=== PATIENT | female | born 1960 | race Caucasian/White ===

== ENCOUNTER 2016-04-14 13:22 | Emergency (ER) | payer MEDICAID ==
--- NOTE | 2016-04-14 14:13 | ER Document Report ---
ED General - General Chief Complaint: Chest Pain Stated Complaint: CHEST PAIN Time seen by provider: 14:09 Mode of Arrival: Medic Information source: Patient Notes: 55-year-old female reports abrupt onset of left-sided chest heaviness rating the left shoulder associated with shortness of breath which lasted she thinks about half an hour and was relieved in route with one full dose aspirin and 3 sublingual nitroglycerin. Patient reports history 2 cardiac stents placed she thinks about 2 years ago and reports she is had pain like this intermittently ever since then. She reports it usually will go away with sublingual nitroglycerin but she has had to take as many as 3 in the past to make it go away. 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 She doesn't believe she is had any cardiac workup since her stent placement. She denies diaphoresis, nausea, vomiting, swelling to extremities, numbness weakness to extremities, hematemesis, melena, or hematuria. She reports her chest discomfort has been intermittent occurring every month or so and is not occurring more frequent there lasting longer. She denies any dyspnea on exertion or exercise intolerance worsen her baseline. Physical Exam: General: Alert, appears well. HEENT: Normocephalic. Atraumatic. PERRLA. Extraocular movements intact. Oropharynx clear. Neck: Supple. Non-tender. Respiratory: No respiratory distress. Clear and equal breath sounds bilaterally. Not tender to palpation Cardiovascular: Regular rate and rhythm. Abdominal: Normal Inspection. Soft, non-tender. No distension. Normal Bowel Sounds. Back: Non-tender. No deformity or step off. Extremities: Moves all four extremities. Upper extremities: Normal inspection. Non-tender. Normal color. Normal ROM. Normal temperature. Lower extremities: Normal inspection. Non-tender. No edema. Normal color. Normal ROM. Normal temperature. Neurological: Patient slow to answer questions but speech is clear mentation is normal Psychological: Normal affect. Normal Mood. Skin: Warm. Dry. Normal color. TRAVEL OUTSIDE OF THE [place] IN LAST 30 DAYS: No - Related Data Allergies/Adverse Reactions: haloperidol [From Haldol] Allergy (Verified 05/29/14 19:04) haloperidol lactate [From Haldol] Allergy (Verified 05/29/14 19:04) Past Medical History - Social History Smoking Status: Current Every Day Smoker Family History: CAD - Extensive heart disease in mother and brother with brother dying from complications of cardiac stent placement - Past Medical History Cardiac Medical History: Reports: Hx Coronary Artery Disease, Hx Heart Attack - x2, Hx Hypercholesterolemia, Hx Hypertension Pulmonary Medical History: Reports: Hx Bronchitis, Hx COPD Endocrine Medical History: Reports: Hx Diabetes Mellitus Type 2 Renal/ Medical History: Reports: Hx Kidney Stones GI Medical History: Reports: Hx Gastroesophageal Reflux Disease Psychiatric Medical History: Reports: Hx Bipolar Disorder, Hx Depression, Hx Schizophrenia Past Surgical History: Reports: Hx Cardiac Surgery - stents, Hx Cholecystectomy , Hx Coronary Stent - x2 - Immunizations Hx Diphtheria, Pertussis, Tetanus Vaccination: Yes Review of Systems - Review of Systems Constitutional: denies: Chills, Fever EENT: denies: Ear pain, Throat pain Cardiovascular: See HPI Respiratory: denies: Cough Gastrointestinal: denies: Abdomen distended, Diarrhea Genitourinary: denies: Burning, Dysuria Female Genitourinary: denies: Musculoskeletal: denies: Back pain Skin: denies: Rash Hematologic/Lymphatic: denies: Swollen glands Neurological/Psychological: denies: Weakness, Numbness Course - Re-evaluation Re-evalutation: 04/14/16 16:01 Patient has a presentation most consistent with stable angina. She had relief of her discomfort with 3 several nitroglycerin is consistent with what happened with her by her report on multiple occasions in the outpatient setting. She was also noted by EMS to have us blood sugar 495. Prior to blood being obtained for laboratory work the patient chose to sign out AGAINST MEDICAL ADVICE. She is mentating clearly and competent to choose to refuse further care. She understands that her workup including an evaluation of uncontrolled diabetes as well as coronary artery disease and refusal to allow further workup may have consequences including or permanent disability. 04/14/16 16:02 - Diagnostic Test Radiology reviewed: Image reviewed, Reports reviewed - EKG Interpretation by Me Additional EKG results interpreted by me: 04/14/16 16:00 EKG reviewed by myself shows sinus rhythm at 77 with no acute changes and no significant change compared with 05/29/2014 Discharge - Discharge Clinical Impression: Hyperglycemia Chest pain Qualifiers: Chest pain type: unspecified Qualified Code(s): R07.9 - Chest pain, unspecified Condition: Stable Disposition: AGAINST MEDICAL ADVICE Referrals: TREVON SKAGGS PA-C [NO LOCAL MD] - Follow up tomorrow
[2016-04-14 21:04] VITALS: BP 148/80
--- NOTE | 2016-04-15 | EKG REPORT ---
SEVERITY:- ABNORMAL ECG - SINUS RHYTHM LVH BY VOLTAGE INFERIOR INFARCT, AGE INDETERMINATE CONSIDER ANTERIOR INFARCT : Confirmed by: Ermias Smith 14-Apr-2016 23:59:48
== END 2016-04-14 15:51 | disposition left against medical advice (07) ==
LOC: ER 13:22
DX: R07.9 Chest pain, unspecified (principal); E11.65 Type 2 diabetes mellitus with hyperglycemia; I25.10 Atherosclerotic heart disease of native coronary artery without angina pectoris; J44.9 Chronic obstructive pulmonary disease, unspecified; R06.02 Shortness of breath; I25.2 Old myocardial infarction; I10 Essential (primary) hypertension; F17.200 Nicotine dependence, unspecified, uncomplicated; Z98.61 Coronary angioplasty status; Z88.8 Allergy status to other drugs, medicaments and biological substances; Z82.49 Family history of ischemic heart disease and other diseases of the circulatory system
CPT/HCPCS: 71010; 93005; 93010; 99285

== ENCOUNTER 2016-07-23 19:36 | Emergency (ER) | payer MEDICAID ==
[2016-07-23 21:37] LABS: ABSOLUTE BASOPHILS # (AUTO) 0.1 10^3/uL (0.0-0.2); ABSOLUTE EOSINOPHILS # (AUTO) 0.2 10^3/uL (0.0-0.6); ABSOLUTE LYMPHOCYTES (AUTO) 4.1 10^3/uL (0.5-4.7); ABSOLUTE MONOCYTES (AUTO) 0.7 10^3/uL (0.1-1.4); ABSOLUTE NEUT (AUTO) 5.9 10^3/uL (1.7-8.2); BASOPHILS % (AUTO) 0.7 % (0-2); EOSINOPHILS % (AUTO) 1.9 % (0-6); HEMATOCRIT 46.2 % (36.0-47.0); HEMOGLOBIN 15.7 g/dL (12.0-15.5); HGB HCT DIFFERENCE 0.9; LYMPHOCYTES % (AUTO) 37.3 % (13-45); MEAN CORPUSCULAR HEMOGLOBIN 32.3 pg (27.0-33.4); MEAN CORPUSCULAR VOLUME 95 fl (80-97); MONOCYTES % (AUTO) 6.3 % (3-13); RED BLOOD COUNT 4.87 10^6/uL (3.72-5.28); RED CELL DISTRIBUTION WIDTH 14.1 % (11.5-14.0); SEGMENTED NEUTROPHILS % (AUTO) 53.8 % (42-78); WHITE BLOOD COUNT 11.1 10^3/uL (4.0-10.5)
[2016-07-23 21:43] LABS: ALANINE AMINOTRANSFERASE 63 U/L (9-52); ALBUMIN 4.4 g/dL (3.5-5.0); ALKALINE PHOSPHATASE 125 U/L (38-126); ANION GAP 17 (5-19); ASPARTATE AMINO TRANSFERASE 66 U/L (14-36); BILIRUBIN,DIRECT 0.4 mg/dL (0.0-0.4); BILIRUBIN,TOTAL 0.8 mg/dL (0.2-1.3); BLOOD UREA NITROGEN 10 mg/dL (7-20); CALCIUM 10.3 mg/dL (8.4-10.2); CARBON DIOXIDE 24 mmol/L (22-30); CHLORIDE 101 mmol/L (98-107); CREATINE KINASE 73 U/L (30-135); GLUCOSE 383 mg/dL (75-110); POTASSIUM 3.9 mmol/L (3.6-5.0)
[2016-07-23 21:56] LABS: CREATINE KINASE MB 2.34 ng/mL (<4.55); TROPONIN I < 0.012 ng/mL
[2016-07-23] MEDS ORDERED: LIDOCAINE 1% INJ-PF (10 MG/ML) 30 ML SDV INJ ONE (22:05)
--- NOTE | 2016-07-23 22:07 | RADIOLOGY REPORT (SQ) ---
EXAM DESCRIPTION: CHEST SINGLE VIEW COMPLETED DATE/TIME: 07/23/2016 9:28 pm REASON FOR STUDY: chest pain COMPARISON: 05/29/2014 EXAM PARAMETERS: NUMBER OF VIEWS: One view. TECHNIQUE: Single frontal radiographic view of the chest acquired. RADIATION DOSE: NA LIMITATIONS: None. FINDINGS: LUNGS AND PLEURA: No acute opacities, masses or pneumothorax. No pleural effusion. MEDIASTINUM AND HILAR STRUCTURES: Stable. HEART AND VASCULAR STRUCTURES: Heart normal in size. Normal vasculature. BONES: No acute findings. HARDWARE: None in the chest. OTHER: No other significant finding. IMPRESSION: NO ACUTE RADIOGRAPHIC FINDING IN THE CHEST. TECHNICAL DOCUMENTATION: JOB ID: [id number]
--- NOTE | 2016-07-23 22:30 | ER Document Report ---
ED General - General Mode of Arrival: Medic Information source: Patient TRAVEL OUTSIDE OF THE [place] IN LAST 30 DAYS: No - HPI Patient complains to provider of: Abscess Onset: Other - >1 year ago, worse over past 5 days Onset/Duration: Gradual Associated symptoms: Chest pain, Shortness of breath <MARIVEL MORATAYA - Last Filed: 07/23/16 22:25> <BHAVYA GRIMM - Last Filed: 07/24/16 00:44> - General Chief Complaint: Abscess Stated Complaint: POSSIBLE CYST ON SHOULDER Time Seen by Provider: 07/23/16 21:53 Notes: Patient is a 56-year-old female, with medical history including 2 ND's, diabetes , and COPD, presenting to the emergency department with chief complaint of abscess on her right shoulder. Patient states the area was previously non- tender and only the size of a pea for more than a year, but has progressively worsened over the past 5 days. Patient also complains of right sided achy chest pain that has been intermittent since her second heart attack, but it has become more frequent over the past few weeks (approximately 2-3x per week). Patient also states that she notices that she becomes short of breath when she smokes too much. 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 (MARIVEL MORATAYA) - Related Data Allergies/Adverse Reactions: haloperidol [From Haldol] Allergy (Verified 05/29/14 19:04) haloperidol lactate [From Haldol] Allergy (Verified 05/29/14 19:04) Past Medical History - General Information source: Patient, [facility] Records - Social History Smoking Status: Current Every Day Smoker Chew tobacco use (# tins/day): No Frequency of alcohol use: None Drug Abuse: None Family History: Reviewed & Not Pertinent, CAD - Extensive heart disease in mother and brother with brother dying from complications of cardiac stent placement Patient has suicidal ideation: No Patient has homicidal ideation: No - Past Medical History Cardiac Medical History: Reports: Hx Coronary Artery Disease, Hx Heart Attack - x2, Hx Hypercholesterolemia, Hx Hypertension Pulmonary Medical History: Reports: Hx Bronchitis, Hx COPD Endocrine Medical History: Reports: Hx Diabetes Mellitus Type 2 Renal/ Medical History: Reports: Hx Kidney Stones. Denies: Hx Peritoneal Dialysis GI Medical History: Reports: Hx Gastroesophageal Reflux Disease Psychiatric Medical History: Reports: Hx Bipolar Disorder, Hx Depression, Hx Schizophrenia Past Surgical History: Reports: Hx Cardiac Surgery - stents, Hx Cholecystectomy , Hx Coronary Stent - x2 - Immunizations Hx Diphtheria, Pertussis, Tetanus Vaccination: Yes <MARIVEL MORATAYA - Last Filed: 07/23/16 22:25> Review of Systems - Review of Systems Constitutional: No symptoms reported EENT: No symptoms reported Cardiovascular: See HPI, Chest pain - achy Respiratory: See HPI, Short of breath Gastrointestinal: No symptoms reported Genitourinary: No symptoms reported Female Genitourinary: No symptoms reported Musculoskeletal: No symptoms reported Skin: See HPI, Other - Right shoulder abscess Hematologic/Lymphatic: No symptoms reported Neurological/Psychological: No symptoms reported -: Yes All other systems reviewed and negative <MARIVEL MORATAYA - Last Filed: 07/23/16 22:25> Physical Exam <MARIVEL MORATAYA - Last Filed: 07/23/16 22:25> <BHAVYA GRIMM - Last Filed: 07/24/16 00:44> - Vital signs Vitals: Temp Pulse Resp BP Pulse Ox 97.8 F 84 17 151/82 H 97 07/23/16 19:46 07/23/16 19:46 07/23/16 19:46 07/23/16 19:46 07/23/16 19:46 - Notes Notes: GENERAL: Alert, interacts well. No acute distress. HEAD: Normocephalic, atraumatic. EYES: Pupils equal, round, and reactive to light. Extraocular movements intact. ENT: Oral mucosa moist, tongue midline. NECK: Full range of motion. Supple. Trachea midline. LUNGS: Anterior chest pain reproducible on palpation near mid clavicular line and ribs 4 & 5. clear to auscultation bilaterally, no wheezes, rales, or rhonchi. No respiratory distress. HEART: Regular rate and rhythm. No murmurs, gallops, or rubs. ABDOMEN: Soft, non-tender. Non-distended. Bowel sounds present in all 4 quadrants. EXTREMITIES: Moves all 4 extremities spontaneously. No edema. No cyanosis. NEUROLOGICAL: Alert and oriented x3. Normal speech. [cranial nerves II through XII grossly intact]. Biceps and patellar DTRs 2+ bilaterally. PSYCH: Normal affect, normal mood. SKIN: Warm, dry, normal turgor. Firm, warm, tender 2 cm area just posterior to the right clavicle. (MARIVEL MORATAYA) Course - Laboratory Result Diagrams: 07/23/16 21:19 07/23/16 21:19 <MARIVEL MORATAYA - Last Filed: 07/23/16 22:25> - Laboratory Result Diagrams: 07/23/16 21:19 07/23/16 21:19 <BHAVYA GRIMM - Last Filed: 07/24/16 00:44> - Re-evaluation Re-evalutation: 07/24/16 00:05 CBC shows slight leukocytosis, CMP shows hyperglycemia and slightly elevated LFTs. Initial set of cardiac enzymes negative, chest x-ray shows no acute process. 07/24/16 00:12 I&D was performed, no surrounding erythema. Started on Bactrim to prevent recurrence. Discussed with patient that she is choosing to leave before her second set of cardiac enzymes returns. Her pain is quite reproducible on examination by history of several heart attacks in the past she is high risk for cardiac etiology however the history of this particular episode of pain being reproducible on palpation and quite localized to one area makes her much lower risk. Patient has an initial set of negative cardiac enzymes, allowed us to order a second set and draw but does not want to stay for the results. Patient will be called with the results of the troponin should they return positive. She is aware that she is at risk for having a heart attack and we could be missing it if she leaves before the results are returned. Aware that this may cause the delay in her care. 07/24/16 00:44 Repeat troponin also negative. (BHAVYA GRIMM) - Vital Signs Vital signs: Temp Pulse Resp BP Pulse Ox 97.8 F 76 18 152/95 H 99 07/23/16 19:46 07/24/16 00:37 07/24/16 00:37 07/24/16 00:37 07/24/16 00:37 - Laboratory Laboratory results interpreted by me: 07/23/16 07/23/16 21:19 21:19 WBC 11.1 H Hgb 15.7 H RDW 14.1 H Glucose 383 H Calcium 10.3 H AST 66 H ALT 63 H - EKG Interpretation by Me Additional EKG results interpreted by me: 07/24/16 00:12 EKG shows sinus rhythm at a rate of 81, there is an old scar from an inferior infarct, no current evidence of infarction, no ST segment elevation or depression, no T-wave inversions, there is some T-wave flattening noted in V2 and V3, there is left axis deviation per my interpretation. (BHAVYA GRIMM) Discharge <MARIVEL MORATAYA - Last Filed: 07/23/16 22:25> <BHAVYA GRIMM - Last Filed: 07/24/16 00:44> - Discharge Clinical Impression: Infected sebaceous cyst, Chest pain with moderate risk of acute coronary syndrome Condition: Stable Disposition: HOME, SELF-CARE Instructions: Post Incision and Drainage, Trimethoprim-Sulfa ([facility]) Additional Instructions: You are choosing to leave before your final blood test for a heart attack is drawn. I will call you if the heart attack enzymes comes back elevated. Please return should your chest pain worsen, should you develop any shortness of breath or you develop any new or concerning symptoms. For the abscess on your right shoulder please use warm compresses and Epsom salts soaks. Please rinse it in the shower once a day and please return either here or to primary care physician should it stop draining and get bigger. Prescriptions: Sulfamethoxazole/Trimethoprim [Bactrim Ds Tablet] 1 each PO BID #14 tablet Referrals: TREVON SKAGGS PA-C [Primary Care Provider] - Follow up in 3-5 days Scribe Attestation: 07/24/16 00:44 I personally performed the services described in the documentation, reviewed and edited the documentation which was dictated to the scribe in my presence, and it accurately records my words and actions. (BHAVYA GRIMM) Scribe Documentation - Scribe Written by Angella:: Angella Zaragoza, 07/23/2016 2225 acting as scribe for :: Bertha <MARIVEL MORATAYA - Last Filed: 07/23/16 22:25>
[2016-07-23] MEDS ORDERED: ASPIRIN 81 MG TABLET, CHEWABLE PO ONE (22:39)
[2016-07-24 00:38] VITALS: BP 152/95
--- NOTE | 2016-07-24 08:23 | EKG REPORT ---
SEVERITY:- ABNORMAL ECG - SINUS RHYTHM INFERIOR INFARCT, AGE INDETERMINATE CONSIDER ANTERIOR INFARCT : Confirmed by: Agustin Crawford MD 24-Jul-2016 08:22:44
== END 2016-07-24 00:15 | disposition home or self-care (01) ==
LOC: ER 19:36
PROC: 0H9BXZZ Drainage of Right Upper Arm Skin, External Approach (ICD-10-PCS; principal; 2016-07-23)
DX: L72.3 Sebaceous cyst (principal); D72.829 Elevated white blood cell count, unspecified; R07.9 Chest pain, unspecified; R06.02 Shortness of breath; R79.89 Other specified abnormal findings of blood chemistry; I25.10 Atherosclerotic heart disease of native coronary artery without angina pectoris; I25.2 Old myocardial infarction; I10 Essential (primary) hypertension; E11.65 Type 2 diabetes mellitus with hyperglycemia; J44.9 Chronic obstructive pulmonary disease, unspecified; F17.200 Nicotine dependence, unspecified, uncomplicated; Z88.8 Allergy status to other drugs, medicaments and biological substances; Z82.49 Family history of ischemic heart disease and other diseases of the circulatory system; Z98.61 Coronary angioplasty status
CPT/HCPCS: 93005; 99284; 36415; 82553; 82550; 85025; 80053; 84484; 71010; 93010; 10060; J3490

== ENCOUNTER 2016-08-20 11:07 | Emergency (ER) | payer MEDICAID ==
[2016-08-20] MEDS ORDERED: ASPIRIN 81 MG TABLET, CHEWABLE PO ONE (11:10)
--- NOTE | 2016-08-20 11:41 | ER Document Report ---
ED Cardiac - General Chief Complaint: Chest Pain Stated Complaint: CHEST PAIN Time Seen by Provider: 08/20/16 11:27 Mode of Arrival: Medic Information source: Patient, Emergency Med Personnel TRAVEL OUTSIDE OF THE [place] IN LAST 30 DAYS: No - HPI Patient complains to provider of: Chest pain Use of: denies: Alcohol, Amphetamines, Bath salts, Cocaine Was the onset of pain: Sudden Is the pain a: New problem Chest pain location: Substernal Quality of pain: Heaviness, Tightness Chest pain radiation location: None Severity now: Mild Severity at worst: Moderate Chest pain precipitating factors: At Rest Cardiac risk factors: Hypertension, Smoker, Hx ND Positive cardiac history: Yes Associated symptoms: Diaphoresis, Nausea/vomiting, Shortness of breath Exacerbated by: Denies Relieved by: NTG - PARTIAL Similar symptoms previously: Yes - W/ ND Recently seen / treated by doctor: No - Related Data Allergies/Adverse Reactions: haloperidol [From Haldol] Allergy (Verified 05/29/14 19:04) haloperidol lactate [From Haldol] Allergy (Verified 05/29/14 19:04) Past Medical History - General Information source: Patient - Social History Smoking Status: Former Smoker Cigarette use (# per day): No Chew tobacco use (# tins/day): No Frequency of alcohol use: None Drug Abuse: None Lives with: Family Family History: Reviewed & Not Pertinent, CAD - Extensive heart disease in mother and brother with brother dying from complications of cardiac stent placement - Past Medical History Cardiac Medical History: Reports: Hx Coronary Artery Disease, Hx Heart Attack - x2, Hx Hypercholesterolemia, Hx Hypertension Pulmonary Medical History: Reports: Hx Bronchitis, Hx COPD Neurological Medical History: Reports: None Endocrine Medical History: Reports: Hx Diabetes Mellitus Type 2 Renal/ Medical History: Reports: Hx Kidney Stones. Denies: Hx Peritoneal Dialysis GI Medical History: Reports: Hx Gastroesophageal Reflux Disease Psychiatric Medical History: Reports: Hx Bipolar Disorder, Hx Depression, Hx Schizophrenia Past Surgical History: Reports: Hx Cardiac Surgery - stents, Hx Cholecystectomy , Hx Coronary Stent - x2 - Immunizations Hx Diphtheria, Pertussis, Tetanus Vaccination: Yes Review of Systems - Review of Systems Constitutional: See HPI EENT: No symptoms reported Cardiovascular: See HPI Respiratory: See HPI Gastrointestinal: See HPI Genitourinary: No symptoms reported Musculoskeletal: No symptoms reported Skin: No symptoms reported Neurological/Psychological: No symptoms reported Physical Exam - Vital signs Vitals: Resp Pulse Ox 25 H 97 08/20/16 11:18 08/20/16 11:18 Interpretation: Hypertensive. No: Tachycardic, Hypoxic, Tachypneic, Febrile - General General appearance: Appears well, Alert In distress: None - HEENT Head: Normocephalic Eyes: Normal Conjunctiva: Normal Ears: Normal Nasal: Normal Mouth/Lips: Normal Mucous membranes: Normal Pharynx: Normal - Respiratory Respiratory status: No respiratory distress Breath sounds: Normal - Cardiovascular Rhythm: Regular Heart sounds: Normal auscultation Murmur: No - Abdominal Inspection: Normal Distension: No distension Bowel sounds: Hypoactive - Extremities General upper extremity: Normal inspection General lower extremity: Normal inspection - Neurological Neuro grossly intact: Yes Cognition: Normal Orientation: AAOx4 - Psychological Associated symptoms: Normal affect, Normal mood - Skin Skin Temperature: Warm Skin Moisture: Moist Skin Color: Normal Skin Turgor: Elastic Course - Re-evaluation Re-evalutation: 08/20/16 12:54 PATIENT STATES PAIN RESOLVED. RESULTS OF LAB DISCUSSED W/ PATIENT AND FAMILY. NEED FOR TRANSFER TO MEDICAL CENTER DISCUSSED. WILL SEEK TRANSFER TO [facility]. 08/20/16 13:00 08/20/16 14:08 PATIENT REMAINS PAIN-FREE. DISCUSSED LIKELIHOOD THAT TRANSFER TO [facility] WILL BE PROLONGED, PATIENT AGREES TO TRANSFER TO COUNTS INCLUDE 234 BEDS AT THE [facility] IF THAT WOULD BE QUICKER. 08/20/16 15:12 WHILE AWAITING TRANSPORTATION FOR TRANSFER TO COUNTS INCLUDE 234 BEDS AT THE [facility], PATIENT DECIDED SHE DID NOT WANT TO STAY IN THE HOSPITAL AND PULLED HER IV OUT. AFTER LONG CONVERSATION AND PERSUASION BY Little SHE FINALLY AGREED TO COMPLY WITH RECOMMENDED CARE. 08/20/16 17:22 PATIENT ADAMANTLY DEMANDS TO LEAVE. WAS TOLD BY Little THAT SHE HAS A SERIOUS PROBLEM AND THAT "YOU MIGHT WITHOUT PROPER TREATMENT." SHE VERBALIZES UNDERSTANDING BUT REMAINS STEADFAST IN HER DECISION. SHE IS ALERT, ORIENTED, AND COHERENT. SHE IS ENCOURAGED TO RETURN IF SHE CHANGES HER MIND. - Vital Signs Vital signs: Temp Pulse Resp BP Pulse Ox 97.5 F 18 123/81 95 08/20/16 11:22 08/20/16 15:46 08/20/16 15:46 08/20/16 15:46 - Laboratory Result Diagrams: 08/20/16 11:46 08/20/16 11:46 Laboratory results interpreted by me: 08/20/16 08/20/16 08/20/16 11:46 11:46 11:46 WBC 12.9 H Hgb 16.1 H Hct 48.7 H RDW 14.2 H Absolute Neutrophils 9.3 H Carbon Dioxide 19 L BUN 6 L Glucose 461 H* POC Glucose AST 51 H ALT 54 H Alkaline Phosphatase 145 H Creatine Kinase 316 H CK-MB (CK-2) 19.60 H Total Protein 8.5 H 08/20/16 08/20/16 14:23 16:12 WBC Hgb Hct RDW Absolute Neutrophils Carbon Dioxide BUN Glucose POC Glucose 381 H 385 H AST ALT Alkaline Phosphatase Creatine Kinase CK-MB (CK-2) Total Protein - Diagnostic Test Radiology reviewed: Image reviewed, Reports reviewed - EKG Interpretation by Me EKG shows normal: [place], Intervals. abnormal: Sinus rhythm - WANDERING ATRIAL PACEMAKER, QRS Complexes - INF. Q WAVES, OLD, ST-T Waves - FLATTENED T WAVES LATERALLY Rate: Normal When compared to previous EKG there are: Changes noted - Consults DR. MEADE Time consulted: 13:40 Reason for consultation: 08/20/16 14:10 ACCEPTS PATIENT FOR TRANSFER TO [facility], BED ASSIGNMENT WILL BE DELAYED AT LEAST SEVERAL HOURS. DR. ANGELA LEARY Time consulted: 14:50 Reason for consultation: 08/20/16 15:15 PATIENT ACCEPTED FOR TRANSFER TO COUNTS INCLUDE 234 BEDS AT THE [facility], BED ASSIGNMENT PENDING. Critical Care Note - Critical Care Note Total time excluding time spent on procedures (mins): 60 Comments: LIFE-THREATENING CARDIAC ISCHEMIA REQUIRING AGGRESSIVE INTERVENTIONS, INCLUDING IV MEDICATIONS, FOR STABILIZATION. Discharge - Discharge Clinical Impression: Non-STEMI (non-ST elevated myocardial infarction), Diabetes mellitus type 2 in nonobese, Left against medical advice Hyperglycemia due to type 2 diabetes mellitus Qualifiers: Diabetes mellitus manager long term care insulin use: unspecified manager long term care insulin use status Qualified Code(s): E11.65 - Type 2 diabetes mellitus with hyperglycemia HTN (hypertension) Qualifiers: Hypertension type: essential hypertension Qualified Code(s): I10 - Essential ( primary) hypertension Condition: Fair Disposition: AGAINST MEDICAL ADVICE Additional Instructions: YOU HAVE A SERIOUS MEDICAL PROBLEM, ONE THAT COULD BE FATAL IF NOT PROPERLY TREATED. APPROPRIATE CARE AND TRANSFER TO A MEDICAL CENTER HAS BEEN ARRANGED FOR YOU, BUT YOU HAVE ELECTED TO LEAVE AGAINST MEDICAL ADVICE. CONTINUE YOUR USUAL MEDICATIONS. FOLLOW UP WITH YOUR PRIMARY CARE PROVIDER SOON POSSIBLE. PLEASE RETURN TO E.R. PROMPTLY IF YOU CHANGE YOUR MIND, WE ARE WILLING TO SEE YOU AND DO OUR BEST TO CARE FOR YOU AT ANY TIME..
[2016-08-20] MEDS ORDERED: ONDANSETRON HCL INJ/PF 4 MG/2 ML SDV ONE (11:45)
[2016-08-20] MEDS ORDERED: ONDANSETRON HCL INJ/PF 4 MG/2 ML SDV IV ONE (11:46)
[2016-08-20] MEDS ORDERED: NITROGLYCERIN/D5W 250 ML IV PRN (11:46)
[2016-08-20] MEDS ORDERED: MORPHINE SULFATE 10 MG/ML INJ IM ONE (11:46)
[2016-08-20] MEDS ORDERED: MORPHINE SULFATE 10 MG/ML INJ ONE (11:46)
[2016-08-20 11:57] LABS: ABSOLUTE BASOPHILS # (AUTO) 0.1 10^3/uL (0.0-0.2); ABSOLUTE EOSINOPHILS # (AUTO) 0.1 10^3/uL (0.0-0.6); ABSOLUTE LYMPHOCYTES (AUTO) 2.9 10^3/uL (0.5-4.7); ABSOLUTE MONOCYTES (AUTO) 0.6 10^3/uL (0.1-1.4); ABSOLUTE NEUT (AUTO) 9.3 10^3/uL (1.7-8.2); BASOPHILS % (AUTO) 0.8 % (0-2); EOSINOPHILS % (AUTO) 0.5 % (0-6); HEMATOCRIT 48.7 % (36.0-47.0); HEMOGLOBIN 16.1 g/dL (12.0-15.5); HGB HCT DIFFERENCE -0.4; LYMPHOCYTES % (AUTO) 22.4 % (13-45); MEAN CORPUSCULAR HEMOGLOBIN 31.6 pg (27.0-33.4); MEAN CORPUSCULAR HGB CONC 33.1 g/dL (32.0-36.0); MEAN CORPUSCULAR VOLUME 95 fl (80-97); MONOCYTES % (AUTO) 4.4 % (3-13); RED BLOOD COUNT 5.11 10^6/uL (3.72-5.28); RED CELL DISTRIBUTION WIDTH 14.2 % (11.5-14.0); SEGMENTED NEUTROPHILS % (AUTO) 71.9 % (42-78); WHITE BLOOD COUNT 12.9 10^3/uL (4.0-10.5)
[2016-08-20] MEDS ORDERED: DIPHENHYDRAMINE HCL 50 MG/ML VIAL IV ONE (12:14)
[2016-08-20] MEDS ORDERED: PROCHLORPERAZINE EDISYLATE INJ 10 MG/2 ML VIAL IV ONE (12:15)
[2016-08-20] MEDS ORDERED: MORPHINE SULFATE 10 MG/ML INJ IV ONE (12:16)
[2016-08-20 12:22] LABS: ALANINE AMINOTRANSFERASE 54 U/L (9-52); ALBUMIN 4.4 g/dL (3.5-5.0); ALKALINE PHOSPHATASE 145 U/L (38-126); ANION GAP 19 (5-19); ASPARTATE AMINO TRANSFERASE 51 U/L (14-36); BILIRUBIN,DIRECT 0.4 mg/dL (0.0-0.4); BILIRUBIN,TOTAL 1.2 mg/dL (0.2-1.3); BLOOD UREA NITROGEN 6 mg/dL (7-20); CALCIUM 10.1 mg/dL (8.4-10.2); CARBON DIOXIDE 19 mmol/L (22-30); CHLORIDE 103 mmol/L (98-107); CREATINE KINASE 316 U/L (30-135); CREATININE RESULT 0.73 mg/dL (0.52-1.25); POTASSIUM 3.8 mmol/L (3.6-5.0); SODIUM 140.6 mmol/L (137-145); TOTAL PROTEIN 8.5 g/dL (6.3-8.2)
--- NOTE | 2016-08-20 12:25 | RADIOLOGY REPORT (SQ) ---
EXAM DESCRIPTION: CHEST SINGLE VIEW COMPLETED DATE/TIME: 08/20/2016 12:11 pm REASON FOR STUDY: chest pain COMPARISON: 07/23/2016 EXAM PARAMETERS: NUMBER OF VIEWS: One view. TECHNIQUE: Single frontal radiographic view of the chest acquired. RADIATION DOSE: NA LIMITATIONS: None. FINDINGS: LUNGS AND PLEURA: No opacities, masses or pneumothorax. No pleural effusion. MEDIASTINUM AND HILAR STRUCTURES: No masses. Contour normal. HEART AND VASCULAR STRUCTURES: Heart normal in size. Normal vasculature. BONES: No acute findings. HARDWARE: None in the chest. OTHER: No other significant finding. IMPRESSION: NO ACUTE RADIOGRAPHIC FINDING IN THE CHEST. TECHNICAL DOCUMENTATION: JOB ID: [id number]
[2016-08-20 12:36] LABS: GLUCOSE 461 mg/dL (75-110)
[2016-08-20 12:40] LABS: CREATINE KINASE MB 19.6 ng/mL (<4.55)
[2016-08-20 12:45] LABS: TROPONIN I 1.21 ng/mL
[2016-08-20] MEDS ORDERED: INSULIN REG, HUMAN 100 UNIT/ML 3 ML VIAL (PYX) IV ONE (12:51)
[2016-08-20] MEDS ORDERED: NORMAL SALINE 100 ML with INSULIN REGULAR, HUMAN 100 UNIT IV PRN ×2 (13:18)
[2016-08-20] MEDS ORDERED: ENOXAPARIN SODIUM INJ 100 MG/1 ML DISP.SYRIN SUBCUT ONE (13:56)
[2016-08-20] MEDS ORDERED: NITROGLYCERIN 2% OINTMENT 1 GM PACKET TP ONE (13:58)
[2016-08-20] MEDS ORDERED: INSULIN REG, HUMAN 100 UNIT/ML 3 ML VIAL (PYX) ONE (14:33)
[2016-08-20 15:49] VITALS: BP 123/81
--- NOTE | 2016-08-21 03:57 | EKG REPORT ---
SEVERITY:- ABNORMAL ECG - SINUS RHYTHM INFERIOR INFARCT, AGE INDETERMINATE CONSIDER ANTERIOR INFARCT : Confirmed by: Smita Luque MD 21-Aug-2016 03:56:42
--- NOTE | 2016-08-21 03:58 | EKG REPORT ---
SEVERITY:- ABNORMAL ECG - UNKNOWN RHYTHM, IRREGULAR RATE 66-92 INFERIOR INFARCT, OLD : Confirmed by: Smita Luque MD 21-Aug-2016 03:57:40
== END 2016-08-20 17:30 | disposition left against medical advice (07) ==
LOC: ER 11:07
DX: I21.4 Non-ST elevation (NSTEMI) myocardial infarction (principal); I25.10 Atherosclerotic heart disease of native coronary artery without angina pectoris; E11.65 Type 2 diabetes mellitus with hyperglycemia; I25.2 Old myocardial infarction; I10 Essential (primary) hypertension; R61 Generalized hyperhidrosis; R11.2 Nausea with vomiting, unspecified; R06.02 Shortness of breath; R07.89 Other chest pain; J44.9 Chronic obstructive pulmonary disease, unspecified; Z87.891 Personal history of nicotine dependence; Z88.8 Allergy status to other drugs, medicaments and biological substances; Z82.49 Family history of ischemic heart disease and other diseases of the circulatory system; Z98.61 Coronary angioplasty status; Z53.20 Procedure and treatment not carried out because of patient's decision for unspecified reasons
CPT/HCPCS: 93005; 99291; 96372; 96375; 96365; 96366; 36415; 82553; 82962; 82550; 85025; 80053; 84484; 71010; 93010; J1200; J2270; J1815; J0780; J2405; J3490; J1650

== ENCOUNTER 2016-08-22 15:55 | Emergency (ER) | payer MEDICAID ==
[2016-08-22] MEDS ORDERED: ASPIRIN 81 MG TABLET, CHEWABLE PO ONE (16:27)
--- NOTE | 2016-08-22 16:33 | ER Document Report ---
ED Medical Screen (RME) - General Chief Complaint: Chest Pain Stated Complaint: CHEST PAIN Time Seen by Provider: 08/22/16 16:26 TRAVEL OUTSIDE OF THE [place] IN LAST 30 DAYS: No - HPI Notes: 08/22/16 16:32 Chest pain going from left flank to center of the patient's chest reproduced with elevation of her arm. EKG looks similar to previous EKGs - Related Data Allergies/Adverse Reactions: haloperidol [From Haldol] Allergy (Verified 08/22/16 16:04) haloperidol lactate [From Haldol] Allergy (Verified 08/22/16 16:04) Past Medical History - Social History Family history: Reviewed & Not Pertinent - Past Medical History Cardiac Medical History: Reports: Hx Coronary Artery Disease, Hx Heart Attack - x2, Hx Hypercholesterolemia, Hx Hypertension Pulmonary Medical History: Reports: Hx Bronchitis, Hx COPD Endocrine Medical History: Reports: Hx Diabetes Mellitus Type 2 Renal/ Medical History: Reports: Hx Kidney Stones. Denies: Hx Peritoneal Dialysis GI Medical History: Reports: Hx Gastroesophageal Reflux Disease Psychiatric Medical History: Reports: Hx Bipolar Disorder, Hx Depression, Hx Schizophrenia Past Surgical History: Reports: Hx Cardiac Surgery - stents, Hx Cholecystectomy , Hx Coronary Stent - x2 - Immunizations Hx Diphtheria, Pertussis, Tetanus Vaccination: Yes Review of Systems - Review of Systems Cardiovascular: Chest pain Physical Exam - Vital signs Vitals: Temp Pulse Resp BP Pulse Ox 98.0 F 91 18 132/83 H 94 08/22/16 16:04 08/22/16 16:04 08/22/16 16:04 08/22/16 16:04 08/22/16 16:04 - Respiratory Respiratory status: No respiratory distress Chest status: Nontender Breath sounds: Normal Chest palpation: Normal Course - Re-evaluation Re-evalutation: 08/22/16 16:32 - Vital Signs Vital signs: Temp Pulse Resp BP Pulse Ox 98.0 F 91 18 132/83 H 94 08/22/16 16:04 08/22/16 16:04 08/22/16 16:04 08/22/16 16:04 08/22/16 16:04
[2016-08-22 17:32] LABS: PROTHROMBIN TIME 13.3 SEC (11.4-15.4)
[2016-08-22 17:35] LABS: ABSOLUTE BASOPHILS # (AUTO) 0.1 10^3/uL (0.0-0.2); ABSOLUTE EOSINOPHILS # (AUTO) 0.1 10^3/uL (0.0-0.6); ABSOLUTE LYMPHOCYTES (AUTO) 4.1 10^3/uL (0.5-4.7); ABSOLUTE MONOCYTES (AUTO) 1.3 10^3/uL (0.1-1.4); ABSOLUTE NEUT (AUTO) 8.7 10^3/uL (1.7-8.2); BASOPHILS % (AUTO) 0.7 % (0-2); EOSINOPHILS % (AUTO) 0.6 % (0-6); HEMATOCRIT 47.5 % (36.0-47.0); HEMOGLOBIN 15.9 g/dL (12.0-15.5); HGB HCT DIFFERENCE 0.2; LYMPHOCYTES % (AUTO) 28.8 % (13-45); MEAN CORPUSCULAR HEMOGLOBIN 31.7 pg (27.0-33.4); MEAN CORPUSCULAR HGB CONC 33.4 g/dL (32.0-36.0); MEAN CORPUSCULAR VOLUME 95 fl (80-97); MONOCYTES % (AUTO) 8.9 % (3-13); RED CELL DISTRIBUTION WIDTH 14.7 % (11.5-14.0); WHITE BLOOD COUNT 14.3 10^3/uL (4.0-10.5)
--- NOTE | 2016-08-22 17:38 | EKG REPORT ---
SEVERITY:- ABNORMAL ECG - SINUS RHYTHM INFERIOR INFARCT, AGE INDETERMINATE CONSIDER ANTERIOR INFARCT : Confirmed by: Ermias Smith 22-Aug-2016 17:37:06
[2016-08-22 17:46] LABS: ALANINE AMINOTRANSFERASE 46 U/L (9-52); ALBUMIN 4.3 g/dL (3.5-5.0); ALKALINE PHOSPHATASE 129 U/L (38-126); ANION GAP 11 (5-19); ASPARTATE AMINO TRANSFERASE 99 U/L (14-36); BILIRUBIN,DIRECT 0.5 mg/dL (0.0-0.4); BLOOD UREA NITROGEN 8 mg/dL (7-20); CALCIUM 9.3 mg/dL (8.4-10.2); CARBON DIOXIDE 26 mmol/L (22-30); CHLORIDE 100 mmol/L (98-107); CREATINE KINASE 717 U/L (30-135); CREATININE RESULT 0.81 mg/dL (0.52-1.25); GLUCOSE 354 mg/dL (75-110); POTASSIUM 3.5 mmol/L (3.6-5.0); SODIUM 137.3 mmol/L (137-145); TOTAL PROTEIN 8.3 g/dL (6.3-8.2)
[2016-08-22 17:54] LABS: CREATINE KINASE MB 18.8 ng/mL (<4.55)
[2016-08-22 17:59] LABS: TROPONIN I 13.9 ng/mL
[2016-08-22] MEDS ORDERED: HEPARIN SOD (PORCINE) 1,000 UNIT/ML 10 ML VIAL IV PRN (18:33)
[2016-08-22] MEDS ORDERED: HEPARIN SOD (PORCINE) 1,000 UNIT/ML 10 ML VIAL IV ONE (18:33)
[2016-08-22] MEDS ORDERED: HEPARIN SODIUM,PORCINE/D5W 250 ML IV PRN (18:33)
--- NOTE | 2016-08-22 18:34 | ER Document Report ---
ED General - General Chief Complaint: Chest Pain Stated Complaint: CHEST PAIN Time Seen by Provider: 08/22/16 16:26 Mode of Arrival: Ambulatory Information source: Patient, [facility] Records Notes: 56 yr old female presents with hx of 2 RI presents with complaints of chest pain. Pt denies any fevers or chills. pt was diagnosed with nstemi , left AMA. Pt again had chest pain around 2 pm and presented for evaluation. TRAVEL OUTSIDE OF THE [place] IN LAST 30 DAYS: No - HPI Onset: Just prior to arrival Onset/Duration: Sudden Quality of pain: Pressure Severity: Mild Pain Level: 1 Associated symptoms: Chest pain Exacerbated by: Denies Relieved by: Denies Similar symptoms previously: Yes Recently seen / treated by doctor: Yes - Related Data Allergies/Adverse Reactions: haloperidol [From Haldol] Allergy (Verified 08/22/16 16:04) haloperidol lactate [From Haldol] Allergy (Verified 08/22/16 16:04) Past Medical History - Social History Smoking Status: Current Every Day Smoker Cigarette use (# per day): Yes Chew tobacco use (# tins/day): No Smoking Education Provided: No Frequency of alcohol use: None Drug Abuse: None Family History: Reviewed & Not Pertinent, CAD - Extensive heart disease in mother and brother with brother dying from complications of cardiac stent placement Patient has suicidal ideation: No Patient has homicidal ideation: No - Past Medical History Cardiac Medical History: Reports: Hx Coronary Artery Disease, Hx Heart Attack - x2, Hx Hypercholesterolemia, Hx Hypertension Pulmonary Medical History: Reports: Hx Bronchitis, Hx COPD Endocrine Medical History: Reports: Hx Diabetes Mellitus Type 2 Renal/ Medical History: Reports: Hx Kidney Stones. Denies: Hx Peritoneal Dialysis GI Medical History: Reports: Hx Gastroesophageal Reflux Disease Psychiatric Medical History: Reports: Hx Bipolar Disorder, Hx Depression, Hx Schizophrenia Past Surgical History: Reports: Hx Cardiac Surgery - stents, Hx Cholecystectomy , Hx Coronary Stent - x2 - Immunizations Hx Diphtheria, Pertussis, Tetanus Vaccination: Yes Review of Systems - Review of Systems Notes: REVIEW OF SYSTEMS: CONSTITUTIONAL : Denies fever, chills, or sweats. Denies recent illness. EENT: Denies eye, ear, throat, or mouth pain or symptoms. Denies nasal or sinus congestion or discharge. Denies throat, tongue, or mouth swelling or difficulty swallowing. CARDIOVASCULAR: admits to chest pain RESPIRATORY: Denies cough, cold, or chest congestion. Denies shortness of breath, difficulty breathing, or wheezing. GASTROINTESTINAL: Denies abdominal pain or distention. Denies nausea, vomiting , or diarrhea. Denies blood in vomitus, stools, or per rectum. Denies black, tarry stools. Denies constipation. GENITOURINARY: Denies difficulty urinating, painful urination, burning, frequency, blood in urine, or discharge. FEMALE GENITOURINARY: Denies vaginal bleeding, heavy or abnormal periods, irregular periods. Denies vaginal discharge or odor. MUSCULOSKELETAL: Denies back or neck pain or stiffness. Denies joint pain or swelling. SKIN: Denies rash, lesions or sores. HEMATOLOGIC : Denies easy bruising or bleeding. LYMPHATIC: Denies swollen, enlarged glands. NEUROLOGICAL: Denies confusion or altered mental status. Denies passing out or loss of consciousness. Denies dizziness or lightheadedness. Denies headache. Denies weakness or paralysis or loss of use of either side. Denies problems with gait or speech. Denies sensory loss, numbness, or tingling. Denies seizures. PSYCHIATRIC: Denies anxiety or stress. Denies depression, suicidal ideation, or homicidal ideation. ALL OTHER SYSTEMS REVIEWED AND NEGATIVE. PHYSICAL EXAMINATION: GENERAL: Well-appearing, well-nourished and in no acute distress. HEAD: Atraumatic, normocephalic. EYES: Pupils equal round and reactive to light, extraocular movements intact, conjunctiva are normal. ENT: Nares patent, oropharynx clear without exudates. Moist mucous membranes. NECK: Normal range of motion, supple without lymphadenopathy LUNGS: Breath sounds clear to auscultation bilaterally and equal. No wheezes rales or rhonchi. HEART: Regular rate and rhythm without murmurs ABDOMEN: Soft, nontender, nondistended abdomen. No guarding, no rebound. No masses appreciated. Female : deferred Musculoskeletal: Normal range of motion, no pitting or edema. No cyanosis. NEUROLOGICAL: Cranial nerves grossly intact. Normal speech, normal gait. Normal sensory, motor exams PSYCH: Normal mood, normal affect. SKIN: Warm, Dry, normal turgor, no rashes or lesions noted. Dictation was performed using [employer] voice recognition software Physical Exam - Vital signs Vitals: Temp Pulse Resp BP Pulse Ox 98.0 F 91 18 132/83 H 94 06/24/17 16:04 08/22/16 16:04 08/22/16 16:04 08/22/16 16:04 08/22/16 16:04 Course - Re-evaluation Re-evalutation: 08/22/16 18:37 [facility] paged 08/22/16 18:47 heparin protocol started 08/22/16 19:02 nitro drip started, Dr hearn from [place] called back 08/22/16 19:13 Dr Hearn agrees it is an NSTEMI and will accept transfer 08/22/16 21:40 [facility] took patient with no complications - Vital Signs Vital signs: Temp Pulse Resp BP Pulse Ox 98.0 F 91 20 133/90 H 97 08/22/16 16:04 08/22/16 16:04 08/22/16 20:56 08/22/16 20:56 08/22/16 20:56 - Laboratory Result Diagrams: 08/22/16 17:00 08/22/16 17:00 Laboratory results interpreted by me: 08/22/16 08/22/16 08/22/16 17:00 17:00 17:00 WBC 14.3 H Hgb 15.9 H Hct 47.5 H RDW 14.7 H Absolute Neutrophils 8.7 H Potassium 3.5 L Glucose 354 H Direct Bilirubin 0.5 H AST 99 H Alkaline Phosphatase 129 H Creatine Kinase 717 H CK-MB (CK-2) 18.80 H Total Protein 8.3 H Urine Glucose (UA) Urine Ketones Urine Blood Urine Urobilinogen Ur Leukocyte Esterase 08/22/16 19:53 WBC Hgb Hct RDW Absolute Neutrophils Potassium Glucose Direct Bilirubin AST Alkaline Phosphatase Creatine Kinase CK-MB (CK-2) Total Protein Urine Glucose (UA) >=500 H Urine Ketones TRACE H Urine Blood SMALL H Urine Urobilinogen 2.0 H Ur Leukocyte Esterase LARGE H - Diagnostic Test Radiology reviewed: Image reviewed, Reports reviewed - EKG Interpretation by Me EKG shows normal: Sinus rhythm, [place], Intervals, QRS Complexes When compared to previous EKG there are: No significant change Critical Care Note - Critical Care Note Total time excluding time spent on procedures (mins): 33 Comments: 33 minutes of critical care time spent in direct contact evaluating and reevaluating the patient, treating symptoms, reviewing labs and studies and speaking with family and consultants excluding any procedures Discharge - Discharge Clinical Impression: Non-STEMI (non-ST elevated myocardial infarction) Chest pain Qualifiers: Chest pain type: unspecified Qualified Code(s): R07.9 - Chest pain, unspecified Referrals: TREVON SKAGGS PA-C [Primary Care Provider] - Follow up as needed
[2016-08-22] MEDS ORDERED: NITROGLYCERIN/D5W 250 ML IV PRN (18:58)
[2016-08-22 20:14] LABS: APPEARANCE,URINE SLIGHTLY-CLOUDY; BILIRUBIN,URINE NEGATIVE (NEGATIVE); GLUCOSE, URINE >=500 mg/dL (NEGATIVE); KETONES,URINE TRACE mg/dL (NEGATIVE); LEUKOCYTE ESTERASE,URINE LARGE (NEGATIVE); NITRITE,URINE NEGATIVE (NEGATIVE); PROTEIN,URINE NEGATIVE (NEGATIVE); URINE SPECIFIC GRAVITY 1.013
[2016-08-22 20:33] LABS: URINE BARBITURATES SCREEN NEGATIVE; URINE METHADONE SCREEN NEGATIVE; URINE OPIATES LOW NEGATIVE; URINE PHENCYCLIDINE SCREEN NEGATIVE
--- NOTE | 2016-08-22 20:38 | RADIOLOGY REPORT (SQ) ---
EXAM DESCRIPTION: CHEST SINGLE VIEW COMPLETED DATE/TIME: 08/22/2016 8:22 pm REASON FOR STUDY: cp COMPARISON: 08/20/2016 EXAM PARAMETERS: NUMBER OF VIEWS: One view. TECHNIQUE: Single frontal radiographic view of the chest acquired. RADIATION DOSE: NA LIMITATIONS: None. FINDINGS: LUNGS AND PLEURA: No opacities, masses or pneumothorax. No pleural effusion. MEDIASTINUM AND HILAR STRUCTURES: No masses. Contour normal. HEART AND VASCULAR STRUCTURES: Heart normal in size. Normal vasculature. BONES: No acute findings. HARDWARE: None in the chest. OTHER: No other significant finding. IMPRESSION: NO ACUTE RADIOGRAPHIC FINDING IN THE CHEST. TECHNICAL DOCUMENTATION: JOB ID: [id number]
[2016-08-22 20:40] LABS: BACTERIA,URINE 4+ /HPF; WBC,URINE >100 /HPF
[2016-08-22] MEDS ORDERED: MORPHINE SULFATE 10 MG/ML INJ IV ONE (21:55)
[2016-08-22] MEDS ORDERED: ACETAMINOPHEN 325 MG TABLET PO ONE (21:55)
[2016-08-22 22:26] VITALS: BP 136/81
== END 2016-08-22 22:15 | disposition short-term general hospital (02) ==
LOC: ER 15:55
DX: I21.4 Non-ST elevation (NSTEMI) myocardial infarction (principal); R07.9 Chest pain, unspecified; I25.2 Old myocardial infarction; F17.210 Nicotine dependence, cigarettes, uncomplicated
CPT/HCPCS: 93005; 99285; 96375; 96365; 96366; 36415; 82553; 82550; 85025; 85610; 85730; 80053; 81001; 84484; 80307; 71010; 93010; J3490 ×2; J1644 ×2; J2270

== ENCOUNTER 2016-09-03 18:05 | Emergency (ER) | payer MEDICAID ==
[2016-09-03] MEDS ORDERED: ASPIRIN 81 MG TABLET, CHEWABLE PO ONE (18:19)
--- NOTE | 2016-09-03 18:30 | ER Document Report ---
ED Cardiac - General Mode of Arrival: Medic Information source: Patient TRAVEL OUTSIDE OF THE [place] IN LAST 30 DAYS: No - HPI Patient complains to provider of: Chest pain Associated symptoms: Other - See above <NAYAN MIRANDA - Last Filed: 09/03/16 18:38> <BHAVYA GRIMM - Last Filed: 09/03/16 21:45> <ANOOP CASTRO - Last Filed: 09/04/16 03:38> <RAQUEL VALENZUELA - Last Filed: 09/04/16 08:32> - General Chief Complaint: Chest Pain > 30 Stated Complaint: CHEST PAIN Time Seen by Provider: 09/03/16 18:18 Notes: Patient is a 56 year old female who presents to the emergency department via EMS complaining of chest pain. Patient was diagnosed at this facility on 08/20 with a non-stemi heart attack but would not transfer and came back again on with chest pain and was transferred to [facility] where she was told she needed surgery, possibly a stent, but she left due to personal issues with a nurse there. Patient reports that before the chest pain she developed a headache in her temples and across her forehead that is still there. Patient also complains of dizziness, chills, fever, diaphoresis, aching, swishing in her ears, and eye pain. Patient reports the pain in her chest is mostly in her left side but will move to the center of her chest or into her back. Patient describes the pain as burning. Patient states she was told at [facility] that she needed to be on a blood thinner but when she went to her PCP she wasn't able to get a prescription without seeing a cotton baler. Patient states she has been taking Aspirin for her headache with some relief. Patient denies vomiting and diarrhea. PCP: CLEMENTE Vale (NAYAN MIRANDA) - Related Data Allergies/Adverse Reactions: haloperidol [From Haldol] Allergy (Verified 08/22/16 16:04) haloperidol lactate [From Haldol] Allergy (Verified 08/22/16 16:04) Past Medical History - General Information source: Patient - Social History Smoking Status: Former Smoker Chew tobacco use (# tins/day): No Frequency of alcohol use: None Drug Abuse: None Family History: Reviewed & Not Pertinent, CAD - Extensive heart disease in mother and brother with brother dying from complications of cardiac stent placement - Past Medical History Cardiac Medical History: Reports: Hx Coronary Artery Disease, Hx Heart Attack - x2, Hx Hypercholesterolemia, Hx Hypertension Pulmonary Medical History: Reports: Hx Bronchitis, Hx COPD Endocrine Medical History: Reports: Hx Diabetes Mellitus Type 2 Renal/ Medical History: Reports: Hx Kidney Stones GI Medical History: Reports: Hx Gastroesophageal Reflux Disease Psychiatric Medical History: Reports: Hx Bipolar Disorder, Hx Depression, Hx Schizophrenia Past Surgical History: Reports: Hx Cardiac Surgery - stents, Hx Cholecystectomy , Hx Coronary Stent - x2 - Immunizations Hx Diphtheria, Pertussis, Tetanus Vaccination: Yes <NAYAN MIRANDA - Last Filed: 09/03/16 18:38> Review of Systems - Review of Systems Constitutional: See HPI, Chills, Diaphoresis, Fever, Other - aches EENT: See HPI, Eye pain Cardiovascular: See HPI, Chest pain, Dizziness Respiratory: No symptoms reported Gastrointestinal: denies: Diarrhea, Vomiting Genitourinary: No symptoms reported Female Genitourinary: No symptoms reported Musculoskeletal: No symptoms reported Skin: No symptoms reported Hematologic/Lymphatic: No symptoms reported Neurological/Psychological: See HPI, Headaches -: Yes All other systems reviewed and negative <NAYAN MIRANDA - Last Filed: 09/03/16 18:38> Physical Exam <NAYAN MIRANDA - Last Filed: 09/03/16 18:38> <BHAVYA GRIMM - Last Filed: 09/03/16 21:45> <ANOOP CASTRO - Last Filed: 09/04/16 03:38> <RAQUEL VALENZUELA - Last Filed: 09/04/16 08:32> - Vital signs Vitals: Resp Pulse Ox 16 95 09/03/16 18:24 09/03/16 18:24 - Notes Notes: GENERAL: Alert, interacts well. No acute distress. HEAD: Normocephalic, atraumatic. EYES: Pupils equal, round, and reactive to light. Extraocular movements intact. ENT: Oral mucosa moist, tongue midline. NECK: Full range of motion. Supple. Trachea midline. LUNGS: Clear to auscultation bilaterally, no wheezes, rales, or rhonchi. No respiratory distress. HEART: Mild tachycardia. Regular rhythm. No murmurs, gallops, or rubs. ABDOMEN: Soft, non-tender. Non-distended. Bowel sounds present in all 4 quadrants. EXTREMITIES: Moves all 4 extremities spontaneously. No edema, radial and dorsalis pedis pulses 2/4 bilaterally. No cyanosis. NEUROLOGICAL: Alert and oriented x3. Normal speech. PSYCH: Anxious SKIN: Mild diaphoresis. Warm, normal turgor. No rashes or lesions noted. (NAYAN MIRANDA) Course <NAYAN MIRANDA - Last Filed: 09/03/16 18:38> - Laboratory Result Diagrams: 09/03/16 18:46 09/03/16 18:46 <BHAVYA GRIMM - Last Filed: 09/03/16 21:45> - Laboratory Result Diagrams: 09/03/16 18:46 09/03/16 18:46 <ANOOP CASTRO - Last Filed: 09/04/16 03:38> - Laboratory Result Diagrams: 09/04/16 07:12 09/03/16 18:46 <RAQUEL VALENZUELA - Last Filed: 09/04/16 08:32> - Re-evaluation Re-evalutation: 09/03/16 21:05 CBC is leukocytosis 12.3, no anemia, CMP shows hyperglycemia with a glucose of 195, AST elevated at 64, troponin positive at 0.649, this quite a bit lower than it was on the when she was transferred to [facility] for non-STEMI. I did request records from [facility] however they have not yet been received. It does appear from her history that they recommend she have a stent, at any rate the patient continues to have ongoing chest pain. Patient will need be transferred for a non-STEMI to a cardiac catheterization capable hospital. Patient refuses to go back to [facility], states she feels like the nurses they were trying to kill her and that people were trying to harm her, states she does not feel safe there. Patient requests transfer to [facility]. I have made phone call to [facility] and I am awaiting a phone call back at this time. Urinalysis also does show urinary tract infection with large leukocyte esterase. This is been sent for culture, patient is started on Rocephin. EKG is nonischemic. Chest pain is intermittent. Patient is started on Lovenox , metoprolol, simvastatin, Plavix, already took aspirin at home. 09/03/16 21:[address] Villa from [facility] who agrees to accept the patient to her service as a non-STEMI, agrees with treating with Lovenox, metoprolol, Plavix, simvastatin and continuing to control her blood sugar with her usual metformin and insulin. They are on bed delay at this point, agrees with also consulting [facility]. They will call us as soon as they have that assignment. I have promised to call them back should [facility] have a bed assignment instead. I did call and speak with [facility], the hospitalist will call me back when he has a chance currently is quite busy after having a code and multiple other critical patients. At this time the patient is being signed out to Dr. Anoop Castro to help finish arranging the transfer process when Dr. Santos calls back. All medications will continue to be scheduled and ordered so that she will continue to get care overnight and into the morning. [facility] will continue to look for bed and call us back when they have that assignment. 09/03/16 21:45 [facility] cannot accept patient at this time. Hospitalist declined the patient. No reason given. (BHAVYA GRIMM) 09/04/16 08:29 I was notified that the patient wishes to leave AGAINST MEDICAL ADVICE, I had a very long conversation with her, she is alert and oriented she remembers leaving AMA on her previous presentation at [facility], she remembers leaving AMA when she was here with Dr. Mcelroy who initially diagnosed her as an an NSTEMI I explained to the patient. That I can give her medication to help her stay calm she refuses, After performing a Medical Screening Examination, I spoke with the patient at length in regards to leaving the hospital against medical advice. I do not believe the patient should leave but the patient is alert oriented x4, understands the risks and benefits of staying and leaving including disability and . Pt understands that she can return at any time for further care and is more than welcome to do so. Pt verbalizes this understanding. I explained to the patient that she is very high risk for dying since she has had a heart attack The nurse attempted as well multiple times to get the patient to stay, offering to speak with family as well,pt refuses (RAQUEL VALENZUELA) - Vital Signs Vital signs: Temp Pulse Resp BP Pulse Ox 99.5 F 19 125/80 94 09/03/16 19:33 09/04/16 07:00 09/04/16 07:00 09/04/16 07:00 - Laboratory Laboratory results interpreted by me: 09/03/16 09/03/16 09/03/16 18:46 18:46 18:46 WBC 12.3 H RDW 14.1 H Seg Neutrophils % 80.6 H Absolute Neutrophils 9.9 H Glucose 195 H POC Glucose AST 64 H Urine Blood SMALL H Ur Leukocyte Esterase LARGE H 09/03/16 09/04/16 22:21 07:12 WBC 14.1 H RDW 14.4 H Seg Neutrophils % Absolute Neutrophils Glucose POC Glucose 142 H AST Urine Blood Ur Leukocyte Esterase - EKG Interpretation by Me Additional EKG results interpreted by me: 09/03/16 21:06 EKG shows sinus tachycardia at a rate of 101, old inferior infarct with Q waves located in 2, 3, aVF, poor R-wave progression, left axis deviation, no ST segment elevations or depressions, there is T-wave flattening noted in leads II , 3, aVF per my interpretation. (BHAVYA GRIMM) Discharge <NAYAN MIRANDA - Last Filed: 09/03/16 18:38> <BHAVYA GRIMM - Last Filed: 09/03/16 21:45> <ANOOP CASTRO - Last Filed: 09/04/16 03:38> <RAQUEL VALENZUELA - Last Filed: 09/04/16 08:32> - Discharge Clinical Impression: Non-ST elevation (NSTEMI) myocardial infarction Condition: Poor Disposition: AGAINST MEDICAL ADVICE Additional Instructions: please take a full dose aspirin daily Referrals: TREVON SKAGGS PA-C [Primary Care Provider] - Follow up as needed ARMANDO FLORES MD [ACTIVE STAFF] - Follow up tomorrow (No immediate surgical history of pneumonia patient) Scribe Documentation - Scribe Written by Scribe:: alexandra Alejandre, 09/03/16, [id number] acting as scribe for :: Bertha <NAYAN MIRANDA - Last Filed: 09/03/16 18:38>
[2016-09-03 19:15] LABS: ABSOLUTE BASOPHILS # (AUTO) 0.1 10^3/uL (0.0-0.2); ABSOLUTE EOSINOPHILS # (AUTO) 0.1 10^3/uL (0.0-0.6); ABSOLUTE LYMPHOCYTES (AUTO) 1.7 10^3/uL (0.5-4.7); ABSOLUTE MONOCYTES (AUTO) 0.6 10^3/uL (0.1-1.4); ABSOLUTE NEUT (AUTO) 9.9 10^3/uL (1.7-8.2); BASOPHILS % (AUTO) 0.7 % (0-2); EOSINOPHILS % (AUTO) 0.4 % (0-6); HEMATOCRIT 43.5 % (36.0-47.0); HEMOGLOBIN 14.3 g/dL (12.0-15.5); HGB HCT DIFFERENCE -0.6; LYMPHOCYTES % (AUTO) 13.7 % (13-45); MEAN CORPUSCULAR HEMOGLOBIN 31.4 pg (27.0-33.4); MEAN CORPUSCULAR HGB CONC 32.8 g/dL (32.0-36.0); MEAN CORPUSCULAR VOLUME 96 fl (80-97); MONOCYTES % (AUTO) 4.6 % (3-13); RED BLOOD COUNT 4.56 10^6/uL (3.72-5.28); RED CELL DISTRIBUTION WIDTH 14.1 % (11.5-14.0); SEGMENTED NEUTROPHILS % (AUTO) 80.6 % (42-78); WHITE BLOOD COUNT 12.3 10^3/uL (4.0-10.5)
--- NOTE | 2016-09-03 19:24 | RADIOLOGY REPORT (SQ) ---
EXAM DESCRIPTION: CHEST SINGLE VIEW COMPLETED DATE/TIME: 09/03/2016 7:14 pm REASON FOR STUDY: chest pain COMPARISON: 08/22/2016 EXAM PARAMETERS: NUMBER OF VIEWS: One view. TECHNIQUE: Single frontal radiographic view of the chest acquired. RADIATION DOSE: NA LIMITATIONS: None. FINDINGS: LUNGS AND PLEURA: No opacities, masses or pneumothorax. No pleural effusion. MEDIASTINUM AND HILAR STRUCTURES: No masses. Contour normal. HEART AND VASCULAR STRUCTURES: Heart normal in size. Normal vasculature. BONES: No acute findings. HARDWARE: None in the chest. OTHER: No other significant finding. IMPRESSION: NO ACUTE RADIOGRAPHIC FINDING IN THE CHEST. TECHNICAL DOCUMENTATION: JOB ID: [id number]
[2016-09-03 19:29] LABS: APPEARANCE,URINE SLIGHTLY-CLOUDY; BILIRUBIN,URINE NEGATIVE (NEGATIVE); GLUCOSE, URINE NEGATIVE (NEGATIVE); KETONES,URINE NEGATIVE (NEGATIVE); LEUKOCYTE ESTERASE,URINE LARGE (NEGATIVE); NITRITE,URINE NEGATIVE (NEGATIVE); PROTEIN,URINE NEGATIVE (NEGATIVE); URINE SPECIFIC GRAVITY 1.004; UROBILINOGEN,URINE NEGATIVE mg/dL (<2.0)
[2016-09-03 19:30] LABS: ALANINE AMINOTRANSFERASE 40 U/L (9-52); ALBUMIN 4.1 g/dL (3.5-5.0); ALKALINE PHOSPHATASE 119 U/L (38-126); ANION GAP 13 (5-19); ASPARTATE AMINO TRANSFERASE 64 U/L (14-36); BILIRUBIN,DIRECT 0.4 mg/dL (0.0-0.4); BILIRUBIN,TOTAL 0.9 mg/dL (0.2-1.3); BLOOD UREA NITROGEN 7 mg/dL (7-20); CARBON DIOXIDE 24 mmol/L (22-30); CHLORIDE 101 mmol/L (98-107); CREATINE KINASE 74 U/L (30-135); CREATININE RESULT 0.83 mg/dL (0.52-1.25); GLUCOSE 195 mg/dL (75-110); POTASSIUM 3.8 mmol/L (3.6-5.0); SODIUM 137.8 mmol/L (137-145); TOTAL PROTEIN 8.1 g/dL (6.3-8.2)
[2016-09-03] MEDS ORDERED: CEFTRIAXONE 1 GM/D5W RTU 50 ML IV ONE (19:44)
[2016-09-03 19:52] LABS: CREATINE KINASE MB 0.98 ng/mL (<4.55)
[2016-09-03 19:57] LABS: TROPONIN I 0.649 ng/mL
[2016-09-03] MEDS ORDERED: METFORMIN HCL 500 MG TABLET PO ONE (21:00)
[2016-09-03] MEDS ORDERED: SIMVASTATIN 40 MG TABLET PO ONE (21:00)
[2016-09-03] MEDS ORDERED: QUETIAPINE FUMARATE 100 MG TABLET PO ONE (21:00)
[2016-09-03] MEDS ORDERED: INSULIN GLARGINE,HUM.REC.ANLOG 1,000 UNIT/10 ML UNIT SUBCUT ONE (21:00)
[2016-09-03] MEDS ORDERED: METOPROLOL TARTRATE 50 MG TABLET PO ONE (21:00)
[2016-09-03] MEDS ORDERED: CLOPIDOGREL BISULFATE 75 MG TABLET PO ONE (21:01)
[2016-09-03] MEDS ORDERED: ENOXAPARIN SODIUM INJ 100 MG/1 ML DISP.SYRIN SUBCUT ONE (21:02)
[2016-09-03] MEDS ORDERED: TRAMADOL HCL 50 MG TABLET PO PRN (21:42)
[2016-09-03] MEDS ORDERED: ENOXAPARIN SODIUM INJ 100 MG/1 ML DISP.SYRIN SUBCUT SCH (22:00)
[2016-09-03] MEDS ORDERED: CEFTRIAXONE 1 GM/D5W RTU 50 ML IV SCH (22:00)
[2016-09-03] MEDS ORDERED: INSULIN GLARGINE,HUM.REC.ANLOG 1,000 UNIT/10 ML UNIT SUBCUT SCH (22:00)
--- NOTE | 2016-09-04 03:40 | ER Document Report ---
Doctor's Note Notes: 09/04/16 03:39 Patient has had an uneventful evening so far. Patient care is transferred to Dr. Scanlon at this time. Call back from [facility] earlier this evening indicated that they would not be able to accept the patient. At this time she remains accepted at [facility], but is on a wait list until a bed becomes available.
[2016-09-04 07:05] VITALS: BP 125/80
[2016-09-04 07:29] LABS: HEMATOCRIT 42.2 % (36.0-47.0); HEMOGLOBIN 14.1 g/dL (12.0-15.5); HGB HCT DIFFERENCE 0.1; MEAN CORPUSCULAR HEMOGLOBIN 31.5 pg (27.0-33.4); MEAN CORPUSCULAR HGB CONC 33.5 g/dL (32.0-36.0); MEAN CORPUSCULAR VOLUME 94 fl (80-97); RED BLOOD COUNT 4.48 10^6/uL (3.72-5.28); RED CELL DISTRIBUTION WIDTH 14.4 % (11.5-14.0); WHITE BLOOD COUNT 14.1 10^3/uL (4.0-10.5)
--- NOTE | 2016-09-04 08:17 | EKG REPORT ---
SEVERITY:- ABNORMAL ECG - SINUS TACHYCARDIA INFERIOR INFARCT, AGE INDETERMINATE NONSPECIFIC ST-T CHANGES ANTEROLATERAL LEADS. : Confirmed by: Agustin Crawford MD 04-Sep-2016 08:16:57
[2016-09-04] MEDS ORDERED: PAROXETINE HCL 20 MG TABLET PO SCH (10:00)
[2016-09-04] MEDS ORDERED: METFORMIN HCL 500 MG TABLET PO SCH (10:00)
[2016-09-04] MEDS ORDERED: QUETIAPINE FUMARATE 100 MG TABLET PO SCH (10:00)
[2016-09-04] MEDS ORDERED: CLOPIDOGREL BISULFATE 75 MG TABLET PO SCH (10:00)
[2016-09-04] MEDS ORDERED: LISINOPRIL 10 MG TABLET PO SCH (10:00)
[2016-09-04] MEDS ORDERED: AMLODIPINE BESYLATE 5 MG TABLET PO SCH (10:00)
[2016-09-04] MEDS ORDERED: LEVOTHYROXINE SODIUM 0.05 MG TABLET PO SCH (10:00)
== END 2016-09-04 08:55 | disposition left against medical advice (07) ==
LOC: ER 18:05
DX: I21.4 Non-ST elevation (NSTEMI) myocardial infarction (principal); R07.9 Chest pain, unspecified; R51 Headache; Z87.891 Personal history of nicotine dependence
CPT/HCPCS: 93005; 99285; 96372; 96365; 36415; 87086; 82553; 82962; 82550; 85025; 85027; 87088; 80053; 81001; 84484; 87186; 71010; 93010; J1815; J3490 ×4; J1650; J0696

== ENCOUNTER 2016-09-13 23:59 | Emergency (ER) | payer MEDICAID ==
[2016-09-14] MEDS ORDERED: ASPIRIN 81 MG TABLET, CHEWABLE PO ONE (00:01)
--- NOTE | 2016-09-14 00:28 | ER Document Report ---
ED General - General Chief Complaint: Chest Pressure Stated Complaint: CHEST PRESSURE Time Seen by Provider: 09/14/16 00:05 Notes: Patient is a 56-year-old female with past medical history of coronary artery disease, recent had a cardiac catheterization at [facility] which showed multivessel disease she is currently scheduled to speak with a cardiothoracic surgeon tomorrow regarding CABG who presents with chest pain. Patient states that the chest pain started approximately 1 hour prior to arrival was left-sided, pressure-like and did radiate into her left upper extremity. Denies any associated diaphoresis or vomiting. States the pain is resolved after receiving nitroglycerin and aspirin. States this feels similar to prior episodes of chest pain. She has not spoken to her manager commercial real estate or primary doctor regarding today's concerns. TRAVEL OUTSIDE OF THE [place] IN LAST 30 DAYS: No - Related Data Allergies/Adverse Reactions: haloperidol [From Haldol] Allergy (Verified 09/14/16 02:07) haloperidol lactate [From Haldol] Allergy (Verified 09/14/16 02:07) Past Medical History - General Information source: Patient, Emergency Med Personnel - Social History Smoking Status: Never Smoker Frequency of alcohol use: None Drug Abuse: None Lives with: Alone Family History: Reviewed & Not Pertinent, CAD - Extensive heart disease in mother and brother with brother dying from complications of cardiac stent placement - Past Medical History Cardiac Medical History: Reports: Hx Coronary Artery Disease, Hx Heart Attack - x2, Hx Hypercholesterolemia, Hx Hypertension Pulmonary Medical History: Reports: Hx Bronchitis, Hx COPD Endocrine Medical History: Reports: Hx Diabetes Mellitus Type 2 Renal/ Medical History: Reports: Hx Kidney Stones. Denies: Hx Peritoneal Dialysis GI Medical History: Reports: Hx Gastroesophageal Reflux Disease Psychiatric Medical History: Reports: Hx Bipolar Disorder, Hx Depression, Hx Schizophrenia Past Surgical History: Reports: Hx Cardiac Surgery - stents, Hx Cholecystectomy , Hx Coronary Stent - x2 - Immunizations Hx Diphtheria, Pertussis, Tetanus Vaccination: Yes Review of Systems - Review of Systems Notes: Constitutional: Negative for fever. HENT: Negative for sore throat. Eyes: Negative for visual changes. Cardiovascular: Positive for chest pain. Respiratory: Negative for shortness of breath. Gastrointestinal: Negative for abdominal pain, vomiting or diarrhea. Genitourinary: Negative for dysuria. Musculoskeletal: Negative for back pain. Skin: Negative for rash. Neurological: Negative for headaches, weakness or numbness. 10 point ROS negative except as marked above and in HPI. Physical Exam - Vital signs Vitals: Temp Pulse Ox 98.4 F 90 L 09/14/16 00:01 09/14/16 00:01 Interpretation: Hypoxic Notes: PHYSICAL EXAMINATION: GENERAL: Somnolent but responds appropriately to questions HEAD: Atraumatic, normocephalic. EYES: Pupils equal round and reactive to light, extraocular movements intact, sclera anicteric, conjunctiva are normal. ENT: nares patent, oropharynx clear without exudates. Moist mucous membranes. NECK: Normal range of motion, supple without lymphadenopathy LUNGS: Breath sounds clear to auscultation bilaterally and equal. No wheezes rales or rhonchi. HEART: Regular rate and rhythm without murmurs ABDOMEN: Soft, nontender, normoactive bowel sounds. No guarding, no rebound. No masses appreciated. EXTREMITIES: Normal range of motion, no pitting or edema. No cyanosis. NEUROLOGICAL: No focal neurological deficits. Moves all extremities spontaneously and on command. PSYCH: Mildly somnolent SKIN: Warm, Dry, normal turgor, no rashes or lesions noted. Course - Re-evaluation Re-evalutation: 09/14/16 00:26 Patient presents hypoxemic with 85% saturation initially on a Venturi mask but is also quite somnolent. She does have history of COPD although does not have any significant diminished air movement or wheezing on examination. After waking the patient up and getting her talking she was able to saturate as high as 92-93% on a Venturi mask although does not have a baseline oxygen dependency. She does report chest pain that started earlier today and apparently had a catheterization at [facility] last week, was told that she had three-vessel disease and has been scheduled for a CABG but did not have intervention on her three-vessel disease. Patient did of note take quetiapine 300 mg prior to arrival to her somnolence is confounded by possible medication effect versus CO2 retention. Patient was placed on BiPAP, will obtain a chest x-ray, labs, continue on bomb loader, plan for probable admission given recurrent chest pain in the setting of known three-vessel disease and the need for CABG. 09/14/16 02:26 Patient has much improved oxygenation and breathing on BiPAP 60% FiO2 12 on 6. Her troponin has returned mildly elevated at 0.08 however this is lower than the last troponin she had well in this emergency department. I have discussed this case with the automotive center manager who performed the patient's catheterization who agrees that patient needs a CABG that was recommended but apparently she did leave AGAINST MEDICAL ADVICE from [facility] after having been diagnosed with three-vessel disease on her catheterization. He has accepted the patient for admission and surgical consultation. He is in agreement with avoiding Lovenox at this time unless her troponin continues to up trend. The patient has been informed of this care plan is in agreement with this time. She continues to be somewhat somnolent and I do suspect this is related to the sedating medications she took prior to arrival. Venous blood gas does not demonstrate any evidence of respiratory acidosis or hypercapnia to suggest this is the etiology of her some what altered mental status. Chest x- ray was read as a possible left lower lobe pneumonia although clinically this does not for the patient's picture as she does not have a leukocytosis, fever or tachycardia and denies any infectious symptoms. Patient is now in stable condition, will hopefully had a bed available at [facility] in the morning. 09/14/16 03:31 Patient's blood pressure continues to be mildly soft although her maps remain at 65 or above. Review of prior visits to the emergency department in which patient was resting here overnight and do demonstrate that she frequently did have blood pressures in the low 90s to upper 80s and I suspect this is partially again related to the medications she took prior to arrival as well as her sleeping. When I do wake the patient up and recheck her blood pressure it does return to upper 90s to low 100s. Will continue to monitor. - Vital Signs Vital signs: Temp Pulse Resp BP Pulse Ox 98.4 F 16 82/56 L 98 09/14/16 00:01 09/14/16 03:30 09/14/16 03:02 09/14/16 03:30 - Laboratory Result Diagrams: 09/14/16 00:35 09/14/16 00:35 Laboratory results interpreted by me: 09/14/16 09/14/16 00:35 00:35 WBC 10.8 H RDW 14.1 H Potassium 3.2 L BUN 4 L Glucose 194 H - Diagnostic Test Radiology reviewed: Image reviewed, Reports reviewed Radiology results interpreted by me: 09/14/16 02:28 Chest x-ray: Left lower lobe atelectasis - EKG Interpretation by Me Additional EKG results interpreted by me: 09/14/16 02:29 Sinus rhythm. Rate 90. Low voltage throughout. No ST elevations or depressions. T-wave flattening in the lateral leads. QTC is 465. Unchanged from prior EKGs. Critical Care Note - Critical Care Note Total time excluding time spent on procedures (mins): 35 Comments: Critical care time spent obtaining history from patient or surrogate, discussions with consultants, development of treatment plan with patient or surrogate, evaluation of patient's response to treatment, examination of patient , ordering and performing treatments and interventions, ordering and review of laboratory studies, re-evaluation of patient's condition, ordering and review of radiographic studies and review of old charts Discharge - Discharge Clinical Impression: Elevated troponin, Somnolence, Hypoventilation Chest pain Qualifiers: Chest pain type: unspecified Qualified Code(s): R07.9 - Chest pain, unspecified Condition: Fair Disposition: [facility]
--- NOTE | 2016-09-14 00:57 | RADIOLOGY REPORT (SQ) ---
EXAM DESCRIPTION: CHEST SINGLE VIEW COMPLETED DATE/TIME: 09/14/2016 12:49 am REASON FOR STUDY: chest pain/pressure COMPARISON: Chest x-ray 09/03/2016. EXAM PARAMETERS: NUMBER OF VIEWS: One view. TECHNIQUE: Single frontal radiographic view of the chest acquired. RADIATION DOSE: NA LIMITATIONS: None. FINDINGS: LUNGS AND PLEURA: Ground-glass opacity at the left lung base. No pleural effusion or pneu mothorax. MEDIASTINUM AND HILAR STRUCTURES: No masses. Contour normal. HEART AND VASCULAR STRUCTURES: The heart is upper normal limit in size. No overt vascular congestion . BONES: Healed left-sided rib fractures. HARDWARE: None in the chest. IMPRESSION: Ground-glass opacity at the left lung base, may represent atelectasis or pneumonia. TECHNICAL DOCUMENTATION: JOB ID: [id number]
[2016-09-14 01:02] LABS: ABSOLUTE EOSINOPHILS # (AUTO) 0.3 10^3/uL (0.0-0.6); ABSOLUTE LYMPHOCYTES (AUTO) 4.3 10^3/uL (0.5-4.7); ABSOLUTE MONOCYTES (AUTO) 0.8 10^3/uL (0.1-1.4); ABSOLUTE NEUT (AUTO) 5.4 10^3/uL (1.7-8.2); BASOPHILS % (AUTO) 0.3 % (0-2); HEMATOCRIT 40.3 % (36.0-47.0); HEMOGLOBIN 13.7 g/dL (12.0-15.5); HGB HCT DIFFERENCE 0.8; MEAN CORPUSCULAR HEMOGLOBIN 32.1 pg (27.0-33.4); MEAN CORPUSCULAR HGB CONC 33.9 g/dL (32.0-36.0); MEAN CORPUSCULAR VOLUME 95 fl (80-97); MONOCYTES % (AUTO) 6.9 % (3-13); RED BLOOD COUNT 4.25 10^6/uL (3.72-5.28); RED CELL DISTRIBUTION WIDTH 14.1 % (11.5-14.0); SEGMENTED NEUTROPHILS % (AUTO) 49.8 % (42-78); WHITE BLOOD COUNT 10.8 10^3/uL (4.0-10.5)
[2016-09-14] MEDS ORDERED: NORMAL SALINE 1000 ML 500 ML IV ONE (01:02)
[2016-09-14 01:20] LABS: ALANINE AMINOTRANSFERASE 28 U/L (9-52); ALBUMIN 3.6 g/dL (3.5-5.0); ALKALINE PHOSPHATASE 101 U/L (38-126); ANION GAP 13 (5-19); ASPARTATE AMINO TRANSFERASE 27 U/L (14-36); BILIRUBIN,DIRECT 0.4 mg/dL (0.0-0.4); BILIRUBIN,TOTAL 0.7 mg/dL (0.2-1.3); BLOOD UREA NITROGEN 4 mg/dL (7-20); CALCIUM 9.5 mg/dL (8.4-10.2); CARBON DIOXIDE 25 mmol/L (22-30); CHLORIDE 103 mmol/L (98-107); CREATINE KINASE 58 U/L (30-135); CREATININE RESULT 0.73 mg/dL (0.52-1.25); GLUCOSE 194 mg/dL (75-110); POTASSIUM 3.2 mmol/L (3.6-5.0); SODIUM 141.4 mmol/L (137-145); TOTAL PROTEIN 7.5 g/dL (6.3-8.2)
[2016-09-14 01:27] LABS: VENOUS BLOOD BASE EXCESS 2.2 mmol/L; VENOUS BLOOD HCO3 26.9 mmol/L (20-32); VENOUS BLOOD PCO2 42.2 mmHg (35-63); VENOUS BLOOD PH 7.42 (7.30-7.42)
[2016-09-14 01:31] LABS: CREATINE KINASE MB 1.08 ng/mL (<4.55)
[2016-09-14 01:37] LABS: TROPONIN I 0.08 ng/mL
[2016-09-14 07:07] VITALS: BP 112/87
--- NOTE | 2016-09-14 07:23 | EKG REPORT ---
SEVERITY:- ABNORMAL ECG - SINUS RHYTHM INFERIOR INFARCT, AGE INDETERMINATE : Confirmed by: Ermias Smith 14-Sep-2016 07:22:07
== END 2016-09-14 13:42 | disposition left against medical advice (07) ==
LOC: ER 23:59
DX: R07.9 Chest pain, unspecified (principal); R40.0 Somnolence; R06.89 Other abnormalities of breathing; I25.10 Atherosclerotic heart disease of native coronary artery without angina pectoris
CPT/HCPCS: 93005; 99285; 96360; 36415; 82553; 82962; 82550; 85025; 80053; 84484; 82803; 71010; 93010; 94660; J7030

== ENCOUNTER 2016-09-19 20:43 | Emergency (ER) | payer MEDICAID ==
[2016-09-19] MEDS ORDERED: ASPIRIN 81 MG TABLET, CHEWABLE PO ONE (20:48)
[2016-09-19 21:15] LABS: ABSOLUTE EOSINOPHILS # (AUTO) 0.2 10^3/uL (0.0-0.6); ABSOLUTE LYMPHOCYTES (AUTO) 4.3 10^3/uL (0.5-4.7); ABSOLUTE MONOCYTES (AUTO) 0.5 10^3/uL (0.1-1.4); ABSOLUTE NEUT (AUTO) 4.3 10^3/uL (1.7-8.2); BASOPHILS % (AUTO) 0.5 % (0-2); EOSINOPHILS % (AUTO) 2.1 % (0-6); HEMATOCRIT 36.1 % (36.0-47.0); HEMOGLOBIN 12.4 g/dL (12.0-15.5); HGB HCT DIFFERENCE 1.1; LYMPHOCYTES % (AUTO) 45.9 % (13-45); MEAN CORPUSCULAR HEMOGLOBIN 32.7 pg (27.0-33.4); MEAN CORPUSCULAR HGB CONC 34.3 g/dL (32.0-36.0); MEAN CORPUSCULAR VOLUME 95 fl (80-97); MONOCYTES % (AUTO) 5.5 % (3-13); RED BLOOD COUNT 3.79 10^6/uL (3.72-5.28); WHITE BLOOD COUNT 9.3 10^3/uL (4.0-10.5)
[2016-09-19 21:29] LABS: PROTHROMBIN TIME 14.6 SEC (11.4-15.4)
[2016-09-19 21:30] LABS: ALANINE AMINOTRANSFERASE 42 U/L (9-52); ALBUMIN 3.5 g/dL (3.5-5.0); ALKALINE PHOSPHATASE 91 U/L (38-126); ANION GAP 12 (5-19); ASPARTATE AMINO TRANSFERASE 66 U/L (14-36); BILIRUBIN,DIRECT 0.4 mg/dL (0.0-0.4); BILIRUBIN,TOTAL 0.6 mg/dL (0.2-1.3); BLOOD UREA NITROGEN 10 mg/dL (7-20); CARBON DIOXIDE 24 mmol/L (22-30); CHLORIDE 103 mmol/L (98-107); CREATINE KINASE 94 U/L (30-135); CREATININE RESULT 0.91 mg/dL (0.52-1.25); GLUCOSE 283 mg/dL (75-110); POTASSIUM 3.6 mmol/L (3.6-5.0); SODIUM 139.4 mmol/L (137-145); TOTAL PROTEIN 7.2 g/dL (6.3-8.2)
--- NOTE | 2016-09-19 21:38 | RADIOLOGY REPORT (SQ) ---
7 7 EXAM DESCRIPTION: CHEST SINGLE VIEW COMPLETED DATE/TIME: 09/19/2016 9:23 pm REASON FOR STUDY: cp COMPARISON: 09/14/2016 EXAM PARAMETERS: NUMBER OF VIEWS: One view. TECHNIQUE: Single frontal radiographic view of the chest acquired. RADIATION DOSE: NA LIMITATIONS: None. FINDINGS: LUNGS AND PLEURA: A previously described left lung base opacity has largely resolved in e study interval. No new opacities, masses or pneumothorax. No pleural effusion. MEDIASTINUM AND HILAR STRUCTURES: No masses. Contour normal. HEART AND VASCULAR STRUCTURES: Stable. No evidence of failure. BONES: No acute findings. HARDWARE: None in the chest. OTHER: No other significant finding. IMPRESSION: Near complete resolution of a previously described left lung base ground-glass opacity. Otherwise stable radiographic appearance of the chest. TECHNICAL DOCUMENTATION: JOB ID: [id number]
[2016-09-19 21:42] LABS: CREATINE KINASE MB 1.24 ng/mL (<4.55)
[2016-09-19 21:44] LABS: TROPONIN I 0.08 ng/mL
[2016-09-19] MEDS ORDERED: MORPHINE SULFATE 10 MG/ML INJ IV PRN (22:37)
--- NOTE | 2016-09-19 23:30 | ER Document Report ---
ED General - General Chief Complaint: Chest Pain Stated Complaint: CHEST PAIN Time Seen by Provider: 09/19/16 21:57 Notes: Patient is a 56-year-old female with past medical history of coronary artery disease, 2 prior heart attacks, known three-vessel disease requiring CABG who I saw several days ago for a presentation of chest pain who again presents for chest pain. She did leave AGAINST MEDICAL ADVICE after I had transferred her [facility] on the most recent visit to this emergency department. She arrives today complaining of left-sided chest pain that is a dull, constant, pressure that is been present for 2-3 hours and has worsened since that time. Although on the prior visit to the emergency department her chest pain was able to be resolved after receiving nitroglycerin, today patient reports having no relief after receiving 3 sublingual nitroglycerin from EMS and having Nitropaste applied to her chest. Nothing seems to worsen the pain. She does note associated nausea and shortness of breath. TRAVEL OUTSIDE OF THE [place] IN LAST 30 DAYS: No - Related Data Allergies/Adverse Reactions: haloperidol [From Haldol] Allergy (Verified 09/14/16 02:07) haloperidol lactate [From Haldol] Allergy (Verified 09/14/16 02:07) Past Medical History - General Information source: Patient - Social History Smoking Status: Current Some Day Smoker Frequency of alcohol use: None Drug Abuse: None Lives with: Family Family History: Reviewed & Not Pertinent, CAD - Extensive heart disease in mother and brother with brother dying from complications of cardiac stent placement - Past Medical History Cardiac Medical History: Reports: Hx Coronary Artery Disease, Hx Heart Attack - x2, Hx Hypercholesterolemia, Hx Hypertension Pulmonary Medical History: Reports: Hx Bronchitis, Hx COPD Endocrine Medical History: Reports: Hx Diabetes Mellitus Type 2 Renal/ Medical History: Reports: Hx Kidney Stones. Denies: Hx Peritoneal Dialysis GI Medical History: Reports: Hx Gastroesophageal Reflux Disease Psychiatric Medical History: Reports: Hx Bipolar Disorder, Hx Depression, Hx Schizophrenia Past Surgical History: Reports: Hx Cardiac Catheterization, Hx Cardiac Surgery - stents, Hx Cholecystectomy, Hx Coronary Stent - x2 - Immunizations Hx Diphtheria, Pertussis, Tetanus Vaccination: Yes Review of Systems - Review of Systems Notes: Constitutional: Negative for fever. HENT: Negative for sore throat. Eyes: Negative for visual changes. Cardiovascular: Positive for chest pain. Respiratory: Positive for shortness of breath. Gastrointestinal: Negative for abdominal pain, vomiting or diarrhea. Genitourinary: Negative for dysuria. Musculoskeletal: Negative for back pain. Skin: Negative for rash. Neurological: Negative for headaches, weakness or numbness. 10 point ROS negative except as marked above and in HPI. Physical Exam - Vital signs Vitals: Resp 37 H 09/19/16 20:46 Notes: PHYSICAL EXAMINATION: GENERAL: Appears mildly uncomfortable but in no acute distress HEAD: Atraumatic, normocephalic. EYES: Pupils equal round and reactive to light, extraocular movements intact, sclera anicteric, conjunctiva are normal. ENT: nares patent, oropharynx clear without exudates. Moist mucous membranes. NECK: Normal range of motion, supple without lymphadenopathy LUNGS: Breath sounds clear to auscultation bilaterally and equal. No wheezes rales or rhonchi. HEART: Regular rate and rhythm without murmurs ABDOMEN: Soft, nontender, normoactive bowel sounds. No guarding, no rebound. No masses appreciated. EXTREMITIES: Normal range of motion, no pitting or edema. No cyanosis. NEUROLOGICAL: No focal neurological deficits. Moves all extremities spontaneously and on command. PSYCH: Normal mood, normal affect. SKIN: Warm, Dry, normal turgor, no rashes or lesions noted. Course - Re-evaluation Re-evalutation: 09/19/16 23:29 Patient presents again today for ongoing chest pain in the setting of known triple-vessel disease. I saw this patient less than a week ago for the same complaint and she again left AGAINST MEDICAL ADVICE shortly after I left for my shift. Patient is a paranoid schizophrenic and often leaves due to this mental illness although does not lack capacity. She presents today complaining of left -sided chest pain without radiation with associated nausea and shortness of breath. This has not resolved despite 3 sublingual nitroglycerin as well as application of nitroglycerin paste. The patient actually need to be removed as patient's blood pressure continued to down trended to the upper 90s systolic. After Nitropaste was removed morphine was administered with moderate improvement of her pain but is otherwise been unchanged. I did discuss this case with the attending corrosion control specialist at [facility] speaking for Dr. Zelaya who accepted this patient for urgent transfer for unstable angina. Patient has received 324 mg of aspirin. - Vital Signs Vital signs: Temp Pulse Resp BP Pulse Ox 18 99/82 L 94 09/19/16 23:31 09/19/16 23:31 09/19/16 23:31 - Laboratory Result Diagrams: 09/19/16 21:09 09/19/16 21:09 Laboratory results interpreted by me: 09/19/16 09/19/16 21:09 21:09 Lymphocytes % 45.9 H Glucose 283 H AST 66 H - Diagnostic Test Radiology reviewed: Image reviewed, Reports reviewed Radiology results interpreted by me: 09/20/16 03:48 Chest x-ray: No acute infiltrate or pneumothorax - EKG Interpretation by Me Additional EKG results interpreted by me: 09/20/16 03:49 Normal sinus rhythm. Rate 64. No ST elevations or depressions. QTC is prolonged at 512. Discharge - Discharge Clinical Impression: Elevated troponin Chest pain Qualifiers: Chest pain type: unspecified Qualified Code(s): R07.9 - Chest pain, unspecified Condition: Serious Disposition: [facility]
[2016-09-19 23:57] VITALS: BP 99/82
--- NOTE | 2016-09-20 13:49 | EKG REPORT ---
SEVERITY:- ABNORMAL ECG - SINUS RHYTHM INFERIOR INFARCT, AGE INDETERMINATE PROLONGED QT INTERVAL : Confirmed by: Smita Luque MD 20-Sep-2016 13:48:46
== END 2016-09-20 03:10 | disposition short-term general hospital (02) ==
LOC: ER 20:43
DX: R07.9 Chest pain, unspecified (principal); I25.10 Atherosclerotic heart disease of native coronary artery without angina pectoris; R74.8 Abnormal levels of other serum enzymes; I25.2 Old myocardial infarction; Z95.1 Presence of aortocoronary bypass graft; F17.210 Nicotine dependence, cigarettes, uncomplicated; I10 Essential (primary) hypertension; E78.00 Pure hypercholesterolemia, unspecified; E11.9 Type 2 diabetes mellitus without complications; K21.9 Gastro-esophageal reflux disease without esophagitis; F31.9 Bipolar disorder, unspecified; F20.0 Paranoid schizophrenia
CPT/HCPCS: 36415; 71010; 80053; 82550; 82553; 84484; 85025; 85610; 93005; 93010; 99285

== ENCOUNTER 2016-10-12 05:53 | Emergency (ER) | payer MEDICAID ==
[2016-10-12] MEDS ORDERED: ASPIRIN 81 MG TABLET, CHEWABLE PO ONE (06:05)
[2016-10-12] MEDS ORDERED: ONDANSETRON HCL INJ/PF 4 MG/2 ML SDV IV ONE (07:12)
[2016-10-12] MEDS ORDERED: MORPHINE SULFATE 10 MG/ML INJ IV ONE (07:13)
--- NOTE | 2016-10-12 07:30 | RADIOLOGY REPORT (SQ) ---
EXAM DESCRIPTION: CHEST SINGLE VIEW COMPLETED DATE/TIME: 10/12/2016 7:06 am REASON FOR STUDY: chest pain COMPARISON: 09/19/2016. EXAM PARAMETERS: NUMBER OF VIEWS: One view. TECHNIQUE: Single frontal radiographic view of the chest acquired. RADIATION DOSE: NA LIMITATIONS: None. FINDINGS: LUNGS AND PLEURA: Moderate left basilar opacity -effusion appears new compared with prior exam, 09/19/2016. MEDIASTINUM AND HILAR STRUCTURES: No masses. Contour normal. HEART AND VASCULAR STRUCTURES: Mild enlargement of the cardiac silhouette. BONES: No acute findings. HARDWARE: Sternotomy. OTHER: No other significant finding. IMPRESSION: New moderate left lower lobar opacity likely due to pneumonia and/or effusion. TECHNICAL DOCUMENTATION: JOB ID: [id number]
[2016-10-12 07:39] LABS: ABSOLUTE BASOPHILS # (AUTO) 0.1 10^3/uL (0.0-0.2); ABSOLUTE EOSINOPHILS # (AUTO) 0.2 10^3/uL (0.0-0.6); ABSOLUTE MONOCYTES (AUTO) 0.7 10^3/uL (0.1-1.4); ABSOLUTE NEUT (AUTO) 6.2 10^3/uL (1.7-8.2); BASOPHILS % (AUTO) 0.6 % (0-2); EOSINOPHILS % (AUTO) 2.2 % (0-6); HEMATOCRIT 38.6 % (36.0-47.0); HEMOGLOBIN 12.9 g/dL (12.0-15.5); HGB HCT DIFFERENCE 0.1; LYMPHOCYTES % (AUTO) 21.4 % (13-45); MEAN CORPUSCULAR HGB CONC 33.5 g/dL (32.0-36.0); MEAN CORPUSCULAR VOLUME 95 fl (80-97); MONOCYTES % (AUTO) 7.5 % (3-13); RED BLOOD COUNT 4.04 10^6/uL (3.72-5.28); RED CELL DISTRIBUTION WIDTH 17.1 % (11.5-14.0); SEGMENTED NEUTROPHILS % (AUTO) 68.3 % (42-78); WHITE BLOOD COUNT 9.1 10^3/uL (4.0-10.5)
--- NOTE | 2016-10-12 07:49 | ER Document Report ---
ED General - General Chief Complaint: Chest Pain Stated Complaint: CHEST PAIN Time Seen by Provider: 10/12/16 06:05 Mode of Arrival: Medic Information source: Patient, Emergency Med Personnel Notes: 56-year-old female who had quadruple bypass 2 weeks ago presents with complaints of chest wall pain abdominal pain nausea vomiting. Patient denies any fevers or chills states this does not feel like her previous chest pain that he feels like his chest wall that is hurting. Patient notes symptoms started yesterday TRAVEL OUTSIDE OF THE [place] IN LAST 30 DAYS: No - HPI Onset: Yesterday Onset/Duration: Sudden Quality of pain: Sharp Severity: Mild Pain Level: 1 Associated symptoms: Body/muscle aches, Nausea, Vomiting Exacerbated by: Denies Relieved by: Denies Similar symptoms previously: Yes Recently seen / treated by doctor: Yes - Related Data Allergies/Adverse Reactions: haloperidol [From Haldol] Allergy (Verified 09/14/16 02:07) haloperidol lactate [From Haldol] Allergy (Verified 09/14/16 02:07) Past Medical History - Social History Smoking Status: Current Every Day Smoker Cigarette use (# per day): Yes Chew tobacco use (# tins/day): No Smoking Education Provided: No Frequency of alcohol use: None Drug Abuse: None Family History: Reviewed & Not Pertinent, CAD - Extensive heart disease in mother and brother with brother dying from complications of cardiac stent placement - Past Medical History Cardiac Medical History: Reports: Hx Coronary Artery Disease, Hx Heart Attack - x2, Hx Hypercholesterolemia, Hx Hypertension Pulmonary Medical History: Reports: Hx Bronchitis, Hx COPD Endocrine Medical History: Reports: Hx Diabetes Mellitus Type 2 Renal/ Medical History: Reports: Hx Kidney Stones. Denies: Hx Peritoneal Dialysis GI Medical History: Reports: Hx Gastroesophageal Reflux Disease Psychiatric Medical History: Reports: Hx Bipolar Disorder, Hx Depression, Hx Schizophrenia Past Surgical History: Reports: Hx Cardiac Catheterization, Hx Cardiac Surgery - stents, CABG 08/2016, Hx Cholecystectomy, Hx Coronary Stent - x2 - Immunizations Hx Diphtheria, Pertussis, Tetanus Vaccination: Yes Review of Systems - Review of Systems Notes: REVIEW OF SYSTEMS: CONSTITUTIONAL : Denies fever, chills, or sweats. Denies recent illness. EENT: Denies eye, ear, throat, or mouth pain or symptoms. Denies nasal or sinus congestion or discharge. Denies throat, tongue, or mouth swelling or difficulty swallowing. CARDIOVASCULAR: Admits to chest wall pain RESPIRATORY: Denies cough, cold, or chest congestion. Denies shortness of breath, difficulty breathing, or wheezing. GASTROINTESTINAL: Admits to abdominal pain nausea vomiting GENITOURINARY: Denies difficulty urinating, painful urination, burning, frequency, blood in urine, or discharge. FEMALE GENITOURINARY: Denies vaginal bleeding, heavy or abnormal periods, irregular periods. Denies vaginal discharge or odor. MUSCULOSKELETAL: Denies back or neck pain or stiffness. Denies joint pain or swelling. SKIN: Denies rash, lesions or sores. HEMATOLOGIC : Denies easy bruising or bleeding. LYMPHATIC: Denies swollen, enlarged glands. NEUROLOGICAL: Denies confusion or altered mental status. Denies passing out or loss of consciousness. Denies dizziness or lightheadedness. Denies headache. Denies weakness or paralysis or loss of use of either side. Denies problems with gait or speech. Denies sensory loss, numbness, or tingling. Denies seizures. PSYCHIATRIC: Denies anxiety or stress. Denies depression, suicidal ideation, or homicidal ideation. ALL OTHER SYSTEMS REVIEWED AND NEGATIVE. PHYSICAL EXAMINATION: GENERAL: Well-appearing, well-nourished and in no acute distress. HEAD: Atraumatic, normocephalic. EYES: Pupils equal round and reactive to light, extraocular movements intact, conjunctiva are normal. ENT: Nares patent, oropharynx clear without exudates. Moist mucous membranes. NECK: Normal range of motion, supple without lymphadenopathy LUNGS: Breath sounds clear to auscultation bilaterally and equal. No wheezes rales or rhonchi. HEART: Regular rate and rhythm without murmurs ABDOMEN: Soft, mild tenderness of the epigastric right upper quadrants no rebound or guarding Female : deferred Musculoskeletal: Normal range of motion, no pitting or edema. No cyanosis. NEUROLOGICAL: Cranial nerves grossly intact. Normal speech, normal gait. Normal sensory, motor exams PSYCH: Normal mood, normal affect. SKIN: Surgical incisions tender to palpation Dictation was performed using [employer] voice recognition software Physical Exam - Vital signs Vitals: Pulse Ox 96 10/12/16 05:58 Course - Re-evaluation Re-evalutation: 10/12/16 07:49 I had transferred this patient to outlying facility for concerns of cardiac involvement approximately 2 months ago, it appears she did have a quadruple bypass performed. This pain however appears to be more musculoskeletal in the abdominal rather than cardiac in nature. Lab work is pending at this time 10/12/16 13:00 A second set of cardiac enzymes were performed, this was also noted to be negative. Patient is in no distress. I believe her pain currently is all musculoskeletal and patient agrees as well., I have explained to her my concerns especially since she just had a quadruple bypass, she states she understands and will return if there are any other concerns. Patient has been encouraged to follow-up with her quilt stuffer as well. She states she will do so. She promises me she will continue follow-up as needed After performing a Medical Screening Examination, I estimate there is LOW risk for RUPTURED ESOPHAGUS, PNEUMOTHORAX, PULMONARY EMBOLISM, ACUTE CORONARY SYNDROME, OR THORACIC AORTIC DISSECTION, thus I consider the discharge disposition reasonable. I have reevaluated this patient multiple times and no significant life threatening changes are noted. The patient and I have discussed the diagnosis and risks, and we agree with discharging home with close follow-up. We also discussed returning to the Emergency Department immediately if new or worsening symptoms occur. We have discussed the symptoms which are most concerning (e.g., bloody sputum, worsening pain or shortness of breath) that necessitate immediate return. - Vital Signs Vital signs: Temp Pulse Resp BP Pulse Ox 98.4 F 14 115/71 98 10/12/16 06:30 10/12/16 12:01 10/12/16 12:01 10/12/16 12:01 - Laboratory Result Diagrams: 10/12/16 07:22 10/12/16 07:22 Laboratory results interpreted by me: 10/12/16 10/12/16 07:22 07:22 RDW 17.1 H Potassium 3.2 L Est GFR (Non-Af Amer) 58 L Glucose 161 H Calcium 10.3 H Total Bilirubin 1.6 H Direct Bilirubin 1.0 H AST 84 H ALT 56 H Alkaline Phosphatase 155 H Total Protein 9.0 H - Diagnostic Test Radiology reviewed: Image reviewed, Reports reviewed - EKG Interpretation by Me EKG shows normal: Sinus rhythm, [place], Intervals, QRS Complexes When compared to previous EKG there are: No significant change Discharge - Discharge Clinical Impression: Chest wall pain Abdominal pain Qualifiers: Abdominal location: generalized Qualified Code(s): R10.84 - Generalized abdominal pain Condition: Stable Disposition: HOME, SELF-CARE Instructions: Abdominal Pain ([facility]) Referrals: TREVON SKAGGS PA-C [Primary Care Provider] - Follow up tomorrow
[2016-10-12 07:52] LABS: ALANINE AMINOTRANSFERASE 56 U/L (9-52); ALBUMIN 4.6 g/dL (3.5-5.0); ALKALINE PHOSPHATASE 155 U/L (38-126); ANION GAP 18 (5-19); ASPARTATE AMINO TRANSFERASE 84 U/L (14-36); BILIRUBIN,TOTAL 1.6 mg/dL (0.2-1.3); BLOOD UREA NITROGEN 15 mg/dL (7-20); CALCIUM 10.3 mg/dL (8.4-10.2); CARBON DIOXIDE 23 mmol/L (22-30); CHLORIDE 101 mmol/L (98-107); CREATINE KINASE 40 U/L (30-135); CREATININE RESULT 0.98 mg/dL (0.52-1.25); GLUCOSE 161 mg/dL (75-110); POTASSIUM 3.2 mmol/L (3.6-5.0); SODIUM 141.5 mmol/L (137-145)
--- NOTE | 2016-10-12 07:56 | EKG REPORT ---
SEVERITY:- ABNORMAL ECG - SINUS RHYTHM INFERIOR INFARCT, AGE INDETERMINATE LATERAL LEADS ARE ALSO INVOLVED : Confirmed by: Agustin Crawford MD 12-Oct-2016 07:55:41
[2016-10-12 08:03] LABS: CREATINE KINASE MB 1.47 ng/mL (<4.55)
[2016-10-12 08:06] LABS: TROPONIN I 0.054 ng/mL
[2016-10-12 12:34] VITALS: BP 115/71
== END 2016-10-12 12:25 | disposition home or self-care (01) ==
LOC: ER 05:53
DX: R07.89 Other chest pain (principal); R10.84 Generalized abdominal pain; R11.2 Nausea with vomiting, unspecified; F17.200 Nicotine dependence, unspecified, uncomplicated
CPT/HCPCS: 93005; 99285; 96374; 96375; 36415; 82553; 82550; 85025; 80053; 84484; 71010; 93010; J2270; J2405

== ENCOUNTER 2016-10-15 18:36 | Emergency (ER) | payer MEDICAID ==
[2016-10-15 19:01] VITALS: BP 126/68
--- NOTE | 2016-10-15 20:29 | EKG REPORT ---
SEVERITY:- ABNORMAL ECG - SINUS RHYTHM INFERIOR INFARCT, AGE INDETERMINATE LATERAL LEADS ARE ALSO INVOLVED : Confirmed by: Agustin Crawford MD 15-Oct-2016 20:29:10
== END 2016-10-15 21:00 | disposition left against medical advice (07) ==
LOC: ER 18:36
DX: Z53.21 Procedure and treatment not carried out due to patient leaving prior to being seen by health care provider (principal)
CPT/HCPCS: 93005; 93010

== ENCOUNTER 2016-11-17 20:08 | Emergency (ER) | payer MEDICAID ==
[2016-11-17] MEDS ORDERED: ASPIRIN 81 MG TABLET, CHEWABLE PO ONE (21:18)
[2016-11-17 22:24] LABS: ABSOLUTE BASOPHILS # (AUTO) 0.1 10^3/uL (0.0-0.2); ABSOLUTE EOSINOPHILS # (AUTO) 0.4 10^3/uL (0.0-0.6); ABSOLUTE LYMPHOCYTES (AUTO) 3.9 10^3/uL (0.5-4.7); ABSOLUTE MONOCYTES (AUTO) 0.7 10^3/uL (0.1-1.4); ABSOLUTE NEUT (AUTO) 5.6 10^3/uL (1.7-8.2); BASOPHILS % (AUTO) 1.1 % (0-2); EOSINOPHILS % (AUTO) 3.4 % (0-6); HEMATOCRIT 39.3 % (36.0-47.0); HGB HCT DIFFERENCE -0.3; LYMPHOCYTES % (AUTO) 36.5 % (13-45); MEAN CORPUSCULAR HEMOGLOBIN 28.5 pg (27.0-33.4); MEAN CORPUSCULAR VOLUME 86 fl (80-97); MONOCYTES % (AUTO) 6.7 % (3-13); RED BLOOD COUNT 4.55 10^6/uL (3.72-5.28); RED CELL DISTRIBUTION WIDTH 17.8 % (11.5-14.0); SEGMENTED NEUTROPHILS % (AUTO) 52.3 % (42-78); WHITE BLOOD COUNT 10.7 10^3/uL (4.0-10.5)
[2016-11-17 22:31] LABS: ALANINE AMINOTRANSFERASE 17 U/L (9-52); ALBUMIN 3.9 g/dL (3.5-5.0); ALKALINE PHOSPHATASE 116 U/L (38-126); ANION GAP 12 (5-19); ASPARTATE AMINO TRANSFERASE 32 U/L (14-36); BILIRUBIN,DIRECT 0.7 mg/dL (0.0-0.4); BILIRUBIN,TOTAL 1.1 mg/dL (0.2-1.3); BLOOD UREA NITROGEN 6 mg/dL (7-20); CALCIUM 9.7 mg/dL (8.4-10.2); CARBON DIOXIDE 32 mmol/L (22-30); CHLORIDE 96 mmol/L (98-107); CREATINE KINASE 79 U/L (30-135); CREATININE RESULT 0.76 mg/dL (0.52-1.25); GLUCOSE 292 mg/dL (75-110); SODIUM 140.1 mmol/L (137-145)
[2016-11-17 22:37] LABS: POTASSIUM 2.7 mmol/L (3.6-5.0)
[2016-11-17 22:43] LABS: CREATINE KINASE MB 1.99 ng/mL (<4.55)
[2016-11-17 22:46] LABS: TROPONIN I 0.048 ng/mL
--- NOTE | 2016-11-17 23:08 | ER Document Report ---
ED General - General Chief Complaint: Chest Pain > 30 Stated Complaint: CHEST PAIN Time Seen by Provider: 11/17/16 22:52 Notes: Patient is a 56-year-old female comes emergency department for chief complaint of nausea and vomiting with soreness in her belly and a "burning pain in her upper abdomen and chest". She states she has been having these symptoms for 2 weeks. She states she felt chills like she was having a fever earlier but she has not measured a fever. She denies hematemesis, she states she only vomited once today but was not eating anything. Past medical history of paranoid schizophrenia, GERD, type 2 diabetes, MA. She actually had a CABG 6 weeks ago. She denies current chest pain, she just states she feels sore in her abdomen. She was supposed to follow-up with gastroenterology for an endoscopy/ colonoscopy but patient states that she postpone this because she was nervous about it. She denies blood in her stool. TRAVEL OUTSIDE OF THE [place] IN LAST 30 DAYS: No - Related Data Allergies/Adverse Reactions: haloperidol [From Haldol] Allergy (Verified 11/17/16 20:23) haloperidol lactate [From Haldol] Allergy (Verified 11/17/16 20:23) Past Medical History - General Information source: Patient - Social History Smoking Status: Current Every Day Smoker Chew tobacco use (# tins/day): No Frequency of alcohol use: None Drug Abuse: None Lives with: Family Family History: Reviewed & Not Pertinent, CAD - Extensive heart disease in mother and brother with brother dying from complications of cardiac stent placement Patient has suicidal ideation: No Patient has homicidal ideation: No - Past Medical History Cardiac Medical History: Reports: Hx Coronary Artery Disease, Hx Heart Attack - x2, Hx Hypercholesterolemia, Hx Hypertension Pulmonary Medical History: Reports: Hx Bronchitis, Hx COPD Endocrine Medical History: Reports: Hx Diabetes Mellitus Type 2 Renal/ Medical History: Reports: Hx Kidney Stones. Denies: Hx Peritoneal Dialysis GI Medical History: Reports: Hx Gastroesophageal Reflux Disease Psychiatric Medical History: Reports: Hx Bipolar Disorder, Hx Depression, Hx Schizophrenia Past Surgical History: Reports: Hx Cardiac Catheterization, Hx Cardiac Surgery - stents, CABG 09/2016, Hx Cholecystectomy, Hx Coronary Stent - x2 - Immunizations Hx Diphtheria, Pertussis, Tetanus Vaccination: Yes Review of Systems - Review of Systems Constitutional: No symptoms reported EENT: No symptoms reported Cardiovascular: See HPI Respiratory: No symptoms reported Gastrointestinal: See HPI Genitourinary: No symptoms reported Female Genitourinary: No symptoms reported Musculoskeletal: No symptoms reported Skin: No symptoms reported Hematologic/Lymphatic: No symptoms reported Neurological/Psychological: No symptoms reported Physical Exam - Vital signs Vitals: Temp Pulse Resp BP Pulse Ox 98.2 F 84 20 118/69 94 11/17/16 20:25 11/17/16 20:25 11/17/16 20:25 11/17/16 20:25 11/17/16 20:25 Interpretation: Normal - General General appearance: Appears well In distress: None - HEENT Head: Normocephalic, Atraumatic Eyes: Normal Conjunctiva: Normal Extraocular movements intact: Yes Eyelashes: Normal Pupils: PERRL Nasal: Normal Mouth/Lips: Normal Mucous membranes: Normal Pharynx: Normal Neck: Normal - Respiratory Respiratory status: No respiratory distress Chest status: Nontender Breath sounds: Normal. No: Decreased air movement, Wheezing Chest palpation: Normal - Cardiovascular Rhythm: Regular. No: Tachycardia Heart sounds: Normal auscultation, S1 appreciated, S2 appreciated Murmur: No - Abdominal Inspection: Normal Distension: No distension Bowel sounds: Normal Tenderness: Tender - Mild generalized upper abdominal tenderness with no guarding, lower abdomen is completely benign, no rigidity Organomegaly: No organomegaly - Back Back: Normal, Nontender. No: Tender, CVA tenderness - Extremities General upper extremity: Normal inspection, Nontender, Normal color, Normal ROM , Normal temperature General lower extremity: Normal inspection, Nontender, Normal color, Normal ROM , Normal temperature, Normal weight bearing. 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 Chest x- ray unremarkable. Initial cardiac enzyme approximately patient's baseline. CBC unremarkable, chemistry shows hypokalemia, magnesium ordered and shows slightly low magnesium. Patient given magnesium, given potassium. Patient given GI cocktail, afterwards her symptoms resolved. On reevaluation patient still had no symptoms. Cardiac enzymes cycled and still at patient's baseline. Patient believes she has a gallbladder, however ultrasound shows she does not, ultrasound has no concerning abnormalities. Discussed with Dr. Scanlon. Patient has had ongoing nonspecific symptoms, she was supposed to have an endoscopy but did not, recommendation is to treat patient's gastrointestinal symptoms, treat her hypokalemia, recommend very close follow-up for additional testing, recommend giving potassium at home, and have patient return if symptoms develop or new concerning symptoms occur. I discussed in detail with patient, patient tolerating p.o. without difficulty, she states she is ready to leave, she states she will return if she worsens in any way, she states that she will obtain very close follow-up for additional testing and monitoring. - Vital Signs Vital signs: Temp Pulse Resp BP Pulse Ox 97.7 F 85 16 119/79 94 11/18/16 05:04 11/18/16 05:04 11/18/16 05:04 11/18/16 05:04 11/18/16 05:04 - Laboratory Result Diagrams: 11/17/16 21:55 11/17/16 21:55 Laboratory results interpreted by me: 11/17/16 11/17/16 11/17/16 21:55 21:55 21:55 WBC 10.7 H RDW 17.8 H Potassium 2.7 L* Chloride 96 L Carbon Dioxide 32 H BUN 6 L Glucose 292 H Magnesium 1.5 L Direct Bilirubin 0.7 H Discharge - Discharge Clinical Impression: Upper abdominal pain, Hypokalemia, Hypomagnesemia Vomiting Qualifiers: Vomiting type: unspecified Vomiting Intractability: non-intractable Nausea presence: unspecified Qualified Code(s): R11.10 - Vomiting, unspecified Condition: Stable Disposition: HOME, SELF-CARE Additional Instructions: Continue your current medications, add the carafate to help with your stomach. Start with bland foods and fluids, progress slowly. 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 You magnesium was replaced, your potassium is low, you have been given some today, take the prescribed potassium. Have your potassium rechecked within the week with your primary care provider. Return to the ED if you develop any concerning worsening symptoms - returned or worsening pain, uncontrolled vomiting, vomiting blood, black stools, etc. Prescriptions: Potassium Chloride 20 meq PO DAILY #5 tab.er.prt Sucralfate [Carafate 1 gm Tablet] 1 gm PO QID #20 tablet Referrals: TREVON SKAGGS PA-C [Primary Care Provider] - Follow up as needed
--- NOTE | 2016-11-17 23:22 | RADIOLOGY REPORT (SQ) ---
EXAM DESCRIPTION: CHEST SINGLE VIEW COMPLETED DATE/TIME: 11/17/2016 10:59 pm REASON FOR STUDY: chest pain COMPARISON: September 2016 EXAM PARAMETERS: NUMBER OF VIEWS: One view. TECHNIQUE: Single frontal radiographic view of the chest acquired. RADIATION DOSE: NA LIMITATIONS: None. FINDINGS: LUNGS AND PLEURA: There are some minimal linear densities in the left lower lung field whi ch could represent atelectatic changes or scarring. Remaining lung whitman are clear. No pleural eff usions are identified. I cannot exclude a component of obstructive lung disease. MEDIASTINUM AND HILAR STRUCTURES: No masses. Contour normal. HEART AND VASCULAR STRUCTURES: Cardiac silhouette is enlarged. There is mild pulmonary vascular kelli estion. BONES: No acute findings. HARDWARE: Patient is status post median sternotomy. OTHER: No other significant finding. IMPRESSION: Minimal linear densities in the left lower lung field which could represent atelectatic changes or scarring. I cannot exclude a component of obstructive lung disease. Other findings as no logan above TECHNICAL DOCUMENTATION: JOB ID: [id number]
[2016-11-17] MEDS ORDERED: MAGNESIUM SULFATE/D5W 1 GM/100 ML RTUPB IV ONE (23:34)
[2016-11-17] MEDS ORDERED: METOCLOPRAMIDE HCL ORAL SOLN 10 MG/10 ML UDCUP PO ONE (23:35)
[2016-11-17] MEDS ORDERED: POTASSI CL 20 MEQ/50 ML RIDER 20 MEQ/50 ML RTUPB IV SCH (23:35)
[2016-11-17] MEDS ORDERED: MAG HYDROX/AL HYDROX/SIMETH SUSP 30 ML UDCUP PO ONE (23:35)
[2016-11-17] MEDS ORDERED: LIDOCAINE 2% VISCOUS SOLN 20 ML UDCUP PO ONE (23:35)
[2016-11-18] MEDS ORDERED: QUETIAPINE FUMARATE 100 MG TABLET PO ONE (01:22)
--- NOTE | 2016-11-18 01:37 | RADIOLOGY REPORT (SQ) ---
EXAM DESCRIPTION: U/S ABDOMEN LIMITED W/O DOP COMPLETED DATE/TIME: 11/18/2016 1:15 am REASON FOR STUDY: epigastric pain, vomiting COMPARISON: None. TECHNIQUE: Dynamic and static grayscale images acquired of the abdomen and recorded on PACS. Additio nal selected color Doppler and spectral images recorded. LIMITATIONS: None. FINDINGS: PANCREAS: No masses. Visualized pancreatic duct normal caliber. Partially obscured pancr eatic tail LIVER: No masses. Echotexture normal. Left hepatic lobe partially obscured. Minimal perihepatic flu id medially. LIVER VASCULATURE: Normal directional flow of the main portal vein and hepatic veins. GALLBLADDER: Surgically absent. ULTRASOUND-DETECTED PUGA'S SIGN: Not applicable. INTRAHEPATIC DUCTS AND COMMON DUCT: CBD and intrahepatic ducts normal caliber. No filling defects. INFERIOR VENA CAVA: Normal flow. AORTA: No aneurysm. RIGHT KIDNEY: Normal size. Normal echogenicity. No solid or suspicious masses. No hydronephrosis. No calcifications. PERITONEAL AND RIGHT PLEURAL SPACE: Minimal perihepatic fluid medially. OTHER: No other significant findings. IMPRESSION: Cholecystectomy. Minimal perihepatic free fluid. Otherwise, unremarkable. TECHNICAL DOCUMENTATION: JOB ID: [id number] [employer]- All Rights Reserved
[2016-11-18] MEDS ORDERED: POTASSIUM CHLORIDE 10 MEQ TABLET.SA PO ONE (02:37)
[2016-11-18 05:04] VITALS: BP 119/79
--- NOTE | 2016-11-18 08:24 | EKG REPORT ---
SEVERITY:- ABNORMAL ECG - SINUS RHYTHM INFERIOR INFARCT, AGE INDETERMINATE NONSPCIFIC ANTEROLATERAL ST CHANGES : Confirmed by: Agustin Crawford MD 18-Nov-2016 08:24:04
== END 2016-11-18 05:04 | disposition home or self-care (01) ==
LOC: ER 20:08
DX: R10.10 Upper abdominal pain, unspecified (principal); E87.6 Hypokalemia; E83.42 Hypomagnesemia; R07.9 Chest pain, unspecified; R11.10 Vomiting, unspecified; F17.200 Nicotine dependence, unspecified, uncomplicated; J44.9 Chronic obstructive pulmonary disease, unspecified; E11.9 Type 2 diabetes mellitus without complications; Z95.1 Presence of aortocoronary bypass graft; Z87.442 Personal history of urinary calculi; Z90.49 Acquired absence of other specified parts of digestive tract
CPT/HCPCS: 93005; 99285; 96374; 36415; 82553; 82550; 83690; 83735; 85025; 80053; 84484; 71010; 76705; 93010; J3490 ×4; J3475; J3480

== ENCOUNTER 2016-11-22 17:50 | Emergency (ER) | payer MEDICAID ==
[2016-11-22] MEDS ORDERED: INSULIN REG, HUMAN 100 UNIT/ML 3 ML VIAL (PYX) IV ONE (18:15)
[2016-11-22] MEDS ORDERED: MAG HYDROX/AL HYDROX/SIMETH SUSP 30 ML UDCUP PO ONE (18:19)
[2016-11-22] MEDS ORDERED: ONDANSETRON HCL INJ/PF 4 MG/2 ML SDV IV ONE (18:19)
[2016-11-22] MEDS ORDERED: FAMOTIDINE 20 MG TABLET PO ONE (18:19)
[2016-11-22 18:37] LABS: ABSOLUTE EOSINOPHILS # (AUTO) 0.1 10^3/uL (0.0-0.6); ABSOLUTE LYMPHOCYTES (AUTO) 2.4 10^3/uL (0.5-4.7); ABSOLUTE MONOCYTES (AUTO) 0.6 10^3/uL (0.1-1.4); ABSOLUTE NEUT (AUTO) 4.5 10^3/uL (1.7-8.2); BASOPHILS % (AUTO) 0.6 % (0-2); EOSINOPHILS % (AUTO) 1.4 % (0-6); HEMATOCRIT 31.9 % (36.0-47.0); HEMOGLOBIN 10.5 g/dL (12.0-15.5); HGB HCT DIFFERENCE -0.4; LYMPHOCYTES % (AUTO) 31.6 % (13-45); MEAN CORPUSCULAR HGB CONC 32.8 g/dL (32.0-36.0); MEAN CORPUSCULAR VOLUME 86 fl (80-97); MONOCYTES % (AUTO) 7.8 % (3-13); RED BLOOD COUNT 3.73 10^6/uL (3.72-5.28); RED CELL DISTRIBUTION WIDTH 17.9 % (11.5-14.0); SEGMENTED NEUTROPHILS % (AUTO) 58.6 % (42-78); WHITE BLOOD COUNT 7.7 10^3/uL (4.0-10.5)
[2016-11-22] MEDS ORDERED: NORMAL SALINE 500 ML IV ONE (18:41)
[2016-11-22 18:51] LABS: ALANINE AMINOTRANSFERASE 14 U/L (9-52); ALKALINE PHOSPHATASE 95 U/L (38-126); ANION GAP 11 (5-19); ASPARTATE AMINO TRANSFERASE 18 U/L (14-36); BILIRUBIN,DIRECT 0.6 mg/dL (0.0-0.4); BILIRUBIN,TOTAL 0.9 mg/dL (0.2-1.3); BLOOD UREA NITROGEN 9 mg/dL (7-20); CALCIUM 9.1 mg/dL (8.4-10.2); CARBON DIOXIDE 25 mmol/L (22-30); CHLORIDE 101 mmol/L (98-107); CREATINE KINASE 38 U/L (30-135); CREATININE RESULT 0.99 mg/dL (0.52-1.25); POTASSIUM 3.8 mmol/L (3.6-5.0); SODIUM 137.4 mmol/L (137-145); TOTAL PROTEIN 6.3 g/dL (6.3-8.2)
--- NOTE | 2016-11-22 18:56 | ER Document Report ---
ED General - General Chief Complaint: Chest Pain Stated Complaint: CHEST PAIN Time Seen by Provider: 11/22/16 17:54 Mode of Arrival: Medic Information source: Patient, Emergency Med Personnel TRAVEL OUTSIDE OF THE [place] IN LAST 30 DAYS: No - HPI Notes: Patient is a 56-year-old female well-known to the emergency department with history of recurrent chest and abdomen pain and tobacco abuse, paranoid schizophrenia, previous KS, status post artery bypass surgery 7 weeks ago, insulin-dependent diabetes, medicine noncompliance presents emergency department with report that she had midepigastric pain that radiated to the lower abdomen and vomited. She states one time she vomited she thought it was dark and could not tell if there is blood in it, but a subsequent time she vomited and there was no blood on and it was clear. Patient has been seen previously for the same complaint, last seen 5 days ago with a negative ultrasound of the abdomen. The patient had previous history of a cholecystectomy. The patient had otherwise negative lab work. Today blood sugar per EMS was 451 and patient was given 400 cc of IV fluids. The patient is not on any antihypertensive medications and chronically runs a somewhat low blood pressure. The patient reports some nausea. Patient denies any or diarrhea or dysuria. The patient does report chronic constipation and states she has not had a bowel movement about 6 days. Patient usually takes Lantus insulin 40 units each evening, but has not yet taken her Lantus. Patient does not check her blood sugars at home. Medications reported Lantus, nitro, Paxil, Seroquel, aspirin, Plavix, Lipitor. - Related Data Allergies/Adverse Reactions: haloperidol [From Haldol] Allergy (Verified 11/22/16 18:09) haloperidol lactate [From Haldol] Allergy (Verified 11/22/16 18:09) Past Medical History - General Information source: Patient - Social History Smoking Status: Former Smoker Frequency of alcohol use: None Drug Abuse: None Family History: Reviewed & Not Pertinent, CAD - Extensive heart disease in mother and brother with brother dying from complications of cardiac stent placement - Past Medical History Cardiac Medical History: Reports: Hx Coronary Artery Disease, Hx Heart Attack - x2, Hx Hypercholesterolemia, Hx Hypertension Pulmonary Medical History: Reports: Hx Bronchitis, Hx COPD Endocrine Medical History: Reports: Hx Diabetes Mellitus Type 2 Renal/ Medical History: Reports: Hx Kidney Stones. Denies: Hx Peritoneal Dialysis GI Medical History: Reports: Hx Gastroesophageal Reflux Disease Psychiatric Medical History: Reports: Hx Bipolar Disorder, Hx Depression, Hx Schizophrenia Past Surgical History: Reports: Hx Cardiac Catheterization, Hx Cardiac Surgery - stents, CABG 09/2016, Hx Cholecystectomy, Hx Coronary Stent - x2 - Immunizations Hx Diphtheria, Pertussis, Tetanus Vaccination: Yes Review of Systems - Review of Systems Notes: Patientr is REVIEW OF SYSTEMS: CONSTITUTIONAL : Denies fever, chills, or sweats. EENT: Denies eye, ear, throat, or mouth pain or symptoms. Denies nasal or sinus congestion or discharge. Denies throat, tongue, or mouth swelling or difficulty swallowing. CARDIOVASCULAR: Denies palpitations or racing or irregular heart beat. Denies ankle edema. RESPIRATORY: Denies cough, cold, or chest congestion. Denies shortness of breath, difficulty breathing, or wheezing. GASTROINTESTINAL: Denies abdominal distention. Denies diarrhea. Denies blood in vomitus, stools, or per rectum. Denies black, tarry stools. Denies constipation. GENITOURINARY: Denies difficulty urinating, painful urination, burning, frequency, blood in urine, or discharge. FEMALE GENITOURINARY: Denies vaginal bleeding, heavy or abnormal periods, irregular periods. Denies vaginal discharge or odor. MUSCULOSKELETAL: Denies back or neck pain or stiffness. Denies joint pain or swelling. SKIN: Denies rash, lesions or sores. HEMATOLOGIC : Denies easy bruising or bleeding. LYMPHATIC: Denies swollen, enlarged glands. NEUROLOGICAL: Denies confusion or altered mental status. Denies passing out or loss of consciousness. Denies dizziness or lightheadedness. Denies headache. Denies weakness or paralysis or loss of use of either side. Denies problems with gait or speech. Denies sensory loss, numbness, or tingling. Denies seizures. PSYCHIATRIC: Denies anxiety or stress. Denies depression, suicidal ideation, or homicidal ideation. ALL OTHER SYSTEMS REVIEWED AND NEGATIVE. Dictation was performed using [employer] voice recognition software Physical Exam - Vital signs Vitals: Resp Pulse Ox 11 L 96 11/22/16 17:58 11/22/16 17:58 - Notes Notes: PHYSICAL EXAMINATION: GENERAL: Well-appearing, well-nourished and in no acute distress. HEAD: Atraumatic, normocephalic. EYES: Pupils equal round and reactive to light, extraocular movements intact, conjunctiva are normal. ENT: Nares patent, oropharynx clear without exudates. Moist mucous membranes. NECK: Normal range of motion, supple without lymphadenopathy LUNGS: Breath sounds coarse to auscultation bilaterally and equal. No wheezes rales or rhonchi. HEART: Regular rate and rhythm without murmurs ABDOMEN: Soft, nondistended abdomen. No guarding, no rebound. No masses appreciated. Tender over the midepigastric region. Negative Alonso's. Cholecystectomy scar noted. Female : deferred Musculoskeletal: Normal range of motion, no pitting or edema. No cyanosis. NEUROLOGICAL: Cranial nerves grossly intact. Normal speech, normal gait. Normal sensory, motor exams PSYCH: Normal mood, normal affect. SKIN: Warm, Dry, normal turgor, no rashes or lesions noted. Course Course - Re-evaluation Re-evalutation: 11/22/16 19:58 Patient was given Zofran IV and regular insulin 10 units IV for elevated blood sugar. Patient was also given Pepcid by mouth and Maalox by mouth for gastritis. 11/22/16 23:11 Repeat blood sugar came down to mid 200s. Patient tolerated p.o. fluids. Patient was given additional IV fluids with normal saline. Repeat blood pressure 111 systolic and 102 systolic when the patient was resting. She was ambulatory without complaint and denied any chest pain. Initial and repeat troponin were both negative. There is no obvious evidence for congestive heart failure or pneumonia or renal insufficiency or significant electrolyte imbalance. Magnesium was replaced. I have asked the patient about whether not she was on any antihypertensive medications and she is unaware and there was nobody at home that could describe the medications, but EMS gave a medication list that did not have any antihypertensive medications. No evidence for acute KS or ischemia or acute congestive heart failure on chest x-ray, although BNP level is 3000. - Vital Signs Vital signs: Temp Pulse Resp BP Pulse Ox 97.5 F 17 115/77 95 11/22/16 17:59 11/22/16 22:01 11/22/16 22:01 11/22/16 22:01 - Laboratory Result Diagrams: 11/22/16 18:25 11/22/16 18:25 Laboratory results interpreted by me: 11/22/16 11/22/16 11/22/16 18:25 18:25 18:25 Hgb 10.5 L Hct 31.9 L RDW 17.9 H Est GFR (Non-Af Amer) 58 L Glucose 444 H* POC Glucose Magnesium 1.3 L Direct Bilirubin 0.6 H NT-Pro-B Natriuret Pep Albumin 3.0 L Urine Protein Urine Glucose (UA) Urine Urobilinogen Ur Leukocyte Esterase 11/22/16 11/22/16 11/22/16 18:25 19:00 20:16 Hgb Hct RDW Est GFR (Non-Af Amer) Glucose POC Glucose 269 H Magnesium Direct Bilirubin NT-Pro-B Natriuret Pep 3020 H Albumin Urine Protein 100 H Urine Glucose (UA) >=500 H Urine Urobilinogen 4.0 H Ur Leukocyte Esterase TRACE H - EKG Interpretation by Me EKG shows normal: Sinus rhythm Additional EKG results interpreted by me: 11/22/16 18:57 Normal sinus rhythm heart rate of 67, there is no gross evidence for acute KS or ischemia identified. 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 Discharge - Discharge Clinical Impression: Upper abdominal pain, Hypomagnesemia, Hyperglycemia Chest pain Qualifiers: Chest pain type: unspecified Qualified Code(s): R07.9 - Chest pain, unspecified Gastritis Qualifiers: Gastritis type: other gastritis Chronicity: acute Gastritis bleeding: without bleeding Qualified Code(s): K29.00 - Acute gastritis without bleeding Vomiting Qualifiers: Vomiting type: unspecified Vomiting Intractability: non-intractable Nausea presence: with nausea Qualified Code(s): R11.2 - Nausea with vomiting, unspecified Urinary tract infection Qualifiers: Urinary tract infection type: site unspecified Hematuria presence: without hematuria Qualified Code(s): N39.0 - Urinary tract infection, site not specified Clinical Impression: (Ruled Out): Abdominal pain Condition: Stable Disposition: HOME, SELF-CARE Instructions: Abdominal Pain ([facility]), Chest Pain of Unclear Cause ([facility]), Gastritis ([facility]), Urinary Tract Infection ([facility]), Vomiting ([facility]) Additional Instructions: Talk with your regular practitioner about any medication adjustments may need to be made for your blood pressure being somewhat low. Prescriptions: Ondansetron [Zofran Odt 4 mg Tablet] 1 tab PO Q8HP PRN #10 tab.rapdis PRN Reason: For Nausea/Vomiting Cephalexin Monohydrate [Keflex 500 mg Capsule] 500 mg PO TID 5 Days capsule Magnesium Oxide 400 mg PO DAILY #60 tablet Omeprazole 20 mg PO DAILY #30 capsule.dr Referrals: TREVON SKAGGS PA-C [Primary Care Provider] - Follow up tomorrow
[2016-11-22 19:01] LABS: LIPASE 167.1 U/L (23-300); MAGNESIUM 1.3 mg/dL (1.6-2.3)
[2016-11-22 19:02] LABS: GLUCOSE 444 mg/dL (75-110)
[2016-11-22 19:03] LABS: CREATINE KINASE MB 0.67 ng/mL (<4.55); TROPONIN I 0.024 ng/mL
--- NOTE | 2016-11-22 19:11 | RADIOLOGY REPORT (SQ) ---
EXAM DESCRIPTION: CHEST SINGLE VIEW COMPLETED DATE/TIME: 11/22/2016 7:02 pm REASON FOR STUDY: bed 15 cp COMPARISON: 11/17/2016 EXAM PARAMETERS: NUMBER OF VIEWS: One view. TECHNIQUE: Single frontal radiographic view of the chest acquired. RADIATION DOSE: NA LIMITATIONS: None. FINDINGS: LUNGS AND PLEURA: Increasing areas of linear atelectasis at the left base. Right lung is clear. MEDIASTINUM AND HILAR STRUCTURES: No masses. Contour normal. HEART AND VASCULAR STRUCTURES: Heart slightly enlarged. BONES: Sternal wires. HARDWARE: CABG hardware. OTHER: No other significant finding. IMPRESSION: Increasing linear atelectasis in the left lower lobe. CABG hardware. TECHNICAL DOCUMENTATION: JOB ID: [id number]
[2016-11-22 19:20] LABS: APPEARANCE,URINE SLIGHTLY-CLOUDY; BILIRUBIN,URINE NEGATIVE (NEGATIVE); GLUCOSE, URINE >=500 mg/dL (NEGATIVE); KETONES,URINE NEGATIVE (NEGATIVE); LEUKOCYTE ESTERASE,URINE TRACE (NEGATIVE); NITRITE,URINE NEGATIVE (NEGATIVE); PROTEIN,URINE 100 mg/dL (NEGATIVE); URINE SPECIFIC GRAVITY 1.018
--- NOTE | 2016-11-22 19:55 | EKG REPORT ---
SEVERITY:- ABNORMAL ECG - SINUS RHYTHM INFERIOR INFARCT, OLD CONSIDER ANTERIOR INFARCT CONSIDER POSTERIOR WALL INVOLVEMENT LATERAL LEADS ARE ALSO INVOLVED PROLONGED QT INTERVAL : Confirmed by: Agustin Crawford MD 22-Nov-2016 19:54:24
[2016-11-22] MEDS: MAGNESIUM SULFATE/D5W 1 GM/100 ML RTUPB IV SCH (20:33)
[2016-11-22] MEDS ORDERED: CEPHALEXIN 500 MG CAPSULE PO ONE (20:56)
[2016-11-22] MEDS ORDERED: NORMAL SALINE 1000 ML 500 ML IV ONE (20:57)
[2016-11-23 00:34] VITALS: BP 106/70
== END 2016-11-22 23:45 | disposition home or self-care (01) ==
LOC: ER 17:50
DX: R07.9 Chest pain, unspecified (principal); E11.65 Type 2 diabetes mellitus with hyperglycemia; R10.10 Upper abdominal pain, unspecified; E83.42 Hypomagnesemia; K29.00 Acute gastritis without bleeding; R11.2 Nausea with vomiting, unspecified; N39.0 Urinary tract infection, site not specified; K59.09 Other constipation; I25.10 Atherosclerotic heart disease of native coronary artery without angina pectoris; E78.00 Pure hypercholesterolemia, unspecified; Z87.891 Personal history of nicotine dependence; Z87.442 Personal history of urinary calculi; Z95.1 Presence of aortocoronary bypass graft; Z90.49 Acquired absence of other specified parts of digestive tract; I25.2 Old myocardial infarction; Z79.4 Long term (current) use of insulin
CPT/HCPCS: 93005; 99285; 96361; 96375; 96365; 96366; 36415; 87086; 82553; 82962; 82550; 83690; 83735; 85025; 80053; 81001; 84484; 83880; 71010; 93010; J3490 ×2; J3475; J1815; J2405; J7030; J7040

== ENCOUNTER 2016-11-23 12:33 | Emergency (ER) | payer MEDICAID ==
--- NOTE | 2016-11-23 12:39 | ER Document Report ---
ED Cardiac - General Stated Complaint: CHEST PAIN Time Seen by Provider: 11/23/16 12:39 Mode of Arrival: Medic Information source: Patient Notes: 56 yo CAD, COPD, hyperlipedemic, insulin dependent diabetic female c/o vomiting when she tries to sit up (after the surgery), whole stomach hurts, and chest wall hurts (told by 'mishel it is the bone that causes pain) CABG 7 weeks ago a [facility] for CAD, 5 arteries clogged. accucheck 287 at the bedside. TRAVEL OUTSIDE OF THE [place] IN LAST 30 DAYS: No - Related Data Allergies/Adverse Reactions: haloperidol [From Haldol] Allergy (Verified 11/22/16 18:09) haloperidol lactate [From Haldol] Allergy (Verified 11/22/16 18:09) Home Medications: Current Home Medications Albuterol Sulfate [Proair HFA] 2 puff IN Q4HP PRN 11/23/16 [History] Atorvastatin Calcium [Lipitor 40 mg Tablet] 40 mg PO DAILY 11/23/16 [History] Clonazepam [Klonopin] 0.5 mg PO Q12HP PRN 11/23/16 [History] Furosemide [Lasix 20 mg Tablet] 20 mg PO DAILY 11/23/16 [History] Insulin Aspart [Novolog Flexpen] 4 unit SQ Q8 11/23/16 [History] Insulin Glargine,Hum.rec.anlog [Lantus] 25 unit SQ QHS 11/23/16 [History] Magnesium Oxide [Mag-Ox 400 mg Tablet] 400 mg PO DAILY 11/23/16 [History] Metoprolol Tartrate [Lopressor 25 mg Tablet] 12.5 mg PO Q12 11/23/16 [History] Pantoprazole Sodium [Protonix] 40 mg PO Q12 11/23/16 [History] Paroxetine HCl [Paxil] 40 mg PO DAILY 11/23/16 [History] Potassium Chloride [Klor-Con] 20 meq PO DAILY 11/23/16 [History] Quetiapine Fumarate [Seroquel] 200 mg PO QAM 11/23/16 [History] Quetiapine Fumarate [Seroquel] 300 mg PO QHS 11/23/16 [History] Sucralfate [Carafate 1 gm Tablet] 1 gm PO Q6 11/23/16 [History] Past Medical History - General Information source: Patient - Social History Smoking Status: Former Smoker Frequency of alcohol use: None Drug Abuse: None Lives with: Spouse/Significant other Family History: Reviewed & Not Pertinent, CAD - Extensive heart disease in mother and brother with brother dying from complications of cardiac stent placement - Past Medical History Cardiac Medical History: Reports: Hx Coronary Artery Disease, Hx Heart Attack - x2, Hx Hypercholesterolemia, Hx Hypertension Pulmonary Medical History: Reports: Hx Bronchitis, Hx COPD Endocrine Medical History: Reports: Hx Diabetes Mellitus Type 2 Renal/ Medical History: Reports: Hx Kidney Stones. Denies: Hx Peritoneal Dialysis GI Medical History: Reports: Hx Gastroesophageal Reflux Disease Psychiatric Medical History: Reports: Hx Bipolar Disorder, Hx Depression, Hx Schizophrenia Past Surgical History: Reports: Hx Cardiac Catheterization, Hx Cardiac Surgery - stents, CABG 09/2016, Hx Cholecystectomy, Hx Coronary Stent - x2 - Immunizations Hx Diphtheria, Pertussis, Tetanus Vaccination: Yes Review of Systems - Review of Systems Constitutional: No symptoms reported EENT: No symptoms reported Cardiovascular: See HPI Respiratory: No symptoms reported Gastrointestinal: See HPI Genitourinary: No symptoms reported Female Genitourinary: No symptoms reported Musculoskeletal: No symptoms reported Skin: No symptoms reported Hematologic/Lymphatic: No symptoms reported Neurological/Psychological: No symptoms reported Physical Exam - Vital signs Vitals: Temp Pulse Resp Pulse Ox 97.6 F 73 16 98 11/23/16 12:33 11/23/16 12:33 11/23/16 12:33 11/23/16 12:33 Interpretation: Normal - General General appearance: Appears well, Alert, Anxious In distress: None - HEENT Head: Normocephalic, Atraumatic Eyes: Normal Conjunctiva: Normal Pupils: PERRL Mouth/Lips: Normal Mucous membranes: Dry Neck: Supple. No: Lymphadenopathy - Respiratory Respiratory status: No respiratory distress Chest status: Nontender Breath sounds: Normal Chest palpation: Normal - Cardiovascular Rhythm: Regular Heart sounds: Normal auscultation Murmur: No - Abdominal Inspection: Normal Distension: No distension Bowel sounds: Normal Tenderness: Nontender. No: Tender Organomegaly: No organomegaly - Back Back: Normal, Nontender. No: CVA tenderness - Extremities General upper extremity: Normal inspection, Nontender, Normal color, Normal ROM , Normal temperature General lower extremity: Normal inspection, Nontender, Normal color, Normal ROM , Normal temperature, Normal weight bearing. No: Jamie's sign - Neurological Neuro grossly intact: Yes Cognition: Normal Orientation: AAOx4 Darron Coma Scale Eye Opening: Spontaneous Darron Coma Scale Verbal: Oriented [place] Coma Scale Motor: Obeys Commands Adrron Coma Scale Total: 15 Speech: Normal Motor strength normal: LUE, RUE, LLE, RLE Sensory: Normal - Psychological Associated symptoms: Normal affect, Normal mood - Skin Skin Temperature: Warm Skin Moisture: Dry Skin Color: Normal Skin irregularity: negative: Rash Course - Re-evaluation Re-evalutation: 11/23/16 14:28 Is dramatic and crying with periumbilical abdominal pain. Her abdomen is soft with active bowel sounds I will get an acute abdomen the male that is in the room with her said that she has trouble with constipation. 11/23/16 16:[address] bright, he rec. cta abdomen and chest. 11/23/16 18:21 Patient gets anxious when the male is in the room with her she kind of coughs and gags and she is back from the CT, anxious. I am waiting for the results 11/23/16 18:50 The patient is pain-free at this time. I called Dr. 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 The patient takes 325 mg of aspirin daily. Discussion with Dr. Ann and the patient can be discharged home with the results and scan results given to the patient and she can follow-up with Trevon stone tomorrow. Troponin is again negative as it was yesterday 11/23/16 18:54 11/23/16 18:55 pt has been up to bathroom for urination several times in the ER without dizziness of vomiting. She looks better and feels better. - Vital Signs Vital signs: Temp Pulse Resp BP Pulse Ox 97.6 F 73 11 L 98 11/23/16 12:33 11/23/16 12:33 11/23/16 12:39 11/23/16 13:02 - Laboratory Result Diagrams: 11/23/16 13:39 11/23/16 13:39 Laboratory results interpreted by me: 11/23/16 11/23/16 11/23/16 13:01 13:39 13:39 RDW 17.9 H Est GFR (Non-Af Amer) 59 L Glucose 281 H POC Glucose 287 H Direct Bilirubin 0.8 H Urine Protein Urine Glucose (UA) Urine Ketones Urine Urobilinogen 11/23/16 13:55 RDW Est GFR (Non-Af Amer) Glucose POC Glucose Direct Bilirubin Urine Protein 100 H Urine Glucose (UA) >=500 H Urine Ketones TRACE H Urine Urobilinogen 4.0 H Discharge - Discharge Clinical Impression: small amount ascities fluid Abdominal pain Qualifiers: Abdominal location: generalized Qualified Code(s): R10.84 - Generalized abdominal pain Chest pain Qualifiers: Chest pain type: unspecified Qualified Code(s): R07.9 - Chest pain, unspecified Diabetes Qualifiers: Diabetes mellitus type: type 2 Diabetes mellitus complication status: without complication Diabetes mellitus nursing home insulin use: unspecified nursing home insulin use status Qualified Code(s): E11.9 - Type 2 diabetes mellitus without complications Condition: Good Disposition: HOME, SELF-CARE Instructions: Abdominal Pain ([facility]), Chest Pain of Unclear Cause ([facility]) Additional Instructions: call and see Trevon Stone tomorrow-wednesday all the results given to you the abdominal CT shows a small amount of intraabdominal fluid (ascites) to er if worse take a capful of miralax daily Please complete the patient satisfaction survey if you get one, and return it.. If you do not receive a survey, then you can go to the [facility] website, [email or web address] and place your comments about your very good care. Thank you very much. It was a pleasure being your medical provider today. Referrals: TREVON STONE PA-C [Primary Care Provider] - Follow up tomorrow
[2016-11-23] MEDS ORDERED: ASPIRIN 81 MG TABLET, CHEWABLE PO ONE (13:02)
[2016-11-23] MEDS ORDERED: NORMAL SALINE 1000 ML 1,000 ML IV ONE ×2 (13:03→13:38)
--- NOTE | 2016-11-23 13:46 | RADIOLOGY REPORT (SQ) ---
EXAM DESCRIPTION: CHEST SINGLE VIEW/ portable COMPLETED DATE/TIME: 11/23/2016 1:35 pm REASON FOR STUDY: chest pain COMPARISON: 10/31/2016 EXAM PARAMETERS: NUMBER OF VIEWS: One view. TECHNIQUE: Single frontal radiographic view of the chest acquired. RADIATION DOSE: NA LIMITATIONS: None. FINDINGS: LUNGS AND PLEURA: Clearing left lung base with only a few linear markings persisting. No new infiltrates or pleural effusion. MEDIASTINUM AND HILAR STRUCTURES: Stable postoperative changes. HEART AND VASCULAR STRUCTURES: Slight cardiomegaly stable. No overt CHF. BONES: No acute findings. HARDWARE: Wire sutures mediastinum. OTHER: No other significant finding. IMPRESSION: Partial clearing left lung base. TECHNICAL DOCUMENTATION: JOB ID: [id number]
[2016-11-23 13:49] LABS: ABSOLUTE BASOPHILS # (AUTO) 0.1 10^3/uL (0.0-0.2); ABSOLUTE MONOCYTES (AUTO) 0.3 10^3/uL (0.1-1.4); BASOPHILS % (AUTO) 0.7 % (0-2); EOSINOPHILS % (AUTO) 0.3 % (0-6); HEMATOCRIT 38.9 % (36.0-47.0); HGB HCT DIFFERENCE -1.1; LYMPHOCYTES % (AUTO) 23.6 % (13-45); MEAN CORPUSCULAR HEMOGLOBIN 27.8 pg (27.0-33.4); MEAN CORPUSCULAR HGB CONC 32.4 g/dL (32.0-36.0); MEAN CORPUSCULAR VOLUME 86 fl (80-97); MONOCYTES % (AUTO) 4.1 % (3-13); RED BLOOD COUNT 4.54 10^6/uL (3.72-5.28); RED CELL DISTRIBUTION WIDTH 17.9 % (11.5-14.0); SEGMENTED NEUTROPHILS % (AUTO) 71.3 % (42-78); WHITE BLOOD COUNT 8.4 10^3/uL (4.0-10.5)
[2016-11-23 14:09] LABS: ALANINE AMINOTRANSFERASE 20 U/L (9-52); ALBUMIN 3.6 g/dL (3.5-5.0); ALKALINE PHOSPHATASE 119 U/L (38-126); ANION GAP 13 (5-19); ASPARTATE AMINO TRANSFERASE 21 U/L (14-36); BILIRUBIN,DIRECT 0.8 mg/dL (0.0-0.4); BILIRUBIN,TOTAL 1.1 mg/dL (0.2-1.3); BLOOD UREA NITROGEN 9 mg/dL (7-20); CALCIUM 9.6 mg/dL (8.4-10.2); CARBON DIOXIDE 25 mmol/L (22-30); CHLORIDE 103 mmol/L (98-107); CREATINE KINASE 32 U/L (30-135); CREATININE RESULT 0.97 mg/dL (0.52-1.25); GLUCOSE 281 mg/dL (75-110); MAGNESIUM 1.9 mg/dL (1.6-2.3); POTASSIUM 4.3 mmol/L (3.6-5.0); SODIUM 141.1 mmol/L (137-145); TOTAL PROTEIN 7.2 g/dL (6.3-8.2)
[2016-11-23 14:16] LABS: HEMOGLOBIN 12.6 g/dL (12.0-15.5)
[2016-11-23 14:17] LABS: APPEARANCE,URINE SLIGHTLY-CLOUDY; BILIRUBIN,URINE NEGATIVE (NEGATIVE); GLUCOSE, URINE >=500 mg/dL (NEGATIVE); KETONES,URINE TRACE mg/dL (NEGATIVE); LEUKOCYTE ESTERASE,URINE NEGATIVE (NEGATIVE); NITRITE,URINE NEGATIVE (NEGATIVE); PROTEIN,URINE 100 mg/dL (NEGATIVE); URINE SPECIFIC GRAVITY 1.012
[2016-11-23 14:20] LABS: CREATINE KINASE MB 0.86 ng/mL (<4.55); TROPONIN I 0.021 ng/mL
[2016-11-23] MEDS ORDERED: ACETAMINOPHEN 325 MG TABLET PO ONE (14:28)
--- NOTE | 2016-11-23 15:38 | RADIOLOGY REPORT (SQ) ---
EXAM DESCRIPTION: ABDOMEN 2 VIEWS COMPLETED DATE/TIME: 11/23/2016 3:23 pm REASON FOR STUDY: periumbilical pain COMPARISON: None. NUMBER OF VIEWS: Two views. TECHNIQUE: Supine and erect/decubitus radiographic images of the abdomen acquired. LIMITATIONS: None. FINDINGS: FREE AIR: None. No abnormal gas collections. LUNG BASES: Clear. BOWEL GAS PATTERN: Nonobstructive bowel pattern. Moderate fecal material. CALCIFICATIONS: Nonspecific pelvic calcifications. SOFT TISSUES: Some fullness of soft tissues the anatomic pelvis, correlate clinically for distended u rinary bladder or other organ enlargement. HARDWARE: Surgical clips noted. BONES: No acute fracture. No worrisome bone lesions. OTHER: No other significant finding. IMPRESSION: Nonobstructive bowel pattern. Fullness of soft tissues anatomic pelvis. Note above. TECHNICAL DOCUMENTATION: JOB ID: [id number] [employer]- All Rights Reserved
[2016-11-23] MEDS ORDERED: LANSOPRAZOLE 30 MG TAB.RAP.DR PO ONE (16:18)
[2016-11-23] MEDS ORDERED: METOCLOPRAMIDE HCL 10 MG TABLET PO ONE (16:18)
[2016-11-23] MEDS ORDERED: ONDANSETRON 4 MG TAB.RAPDIS PO ONE (16:18)
[2016-11-23] MEDS ORDERED: LORAZEPAM 1 MG TABLET PO ONE (18:16)
--- NOTE | 2016-11-23 18:29 | RADIOLOGY REPORT (SQ) ---
EXAM DESCRIPTION: CTA CHEST COMPLETED DATE/TIME: 11/23/2016 6:05 pm REASON FOR STUDY: chest pain abdominal pain COMPARISON: None. TECHNIQUE: CT scan of the chest performed using helical scanning technique with dynamic intravenous contrast injection. Images reviewed with lung, soft tissue and bone windows. Reconstructed coronal and sagittal MPR images reviewed. Additional 3 dimensional post-processing performed to develop Maximal Intensity Projection images (RI P). All images stored on PACS. All CT scanners at this facility use dose modulation, iterative reconstruction, and/or weight based d osing when appropriate to reduce radiation dose to as low as reasonably achievable (ALARA). [facility]: Dose Right [facility]: CareDose [facility]: Dose Right [facility]: Teradose 4D [facility]: [employer] CONTRAST TYPE AND DOSE: contrast/concentration: Isovue 370.00 mg/ml; Total Contrast Delivered: 155.0 ml; Total Saline Delivered: 120.0 ml Contrast bolus optimized for the pulmonary arteries. Not diagnostic for the aorta. RENAL FUNCTION: Creatinine 0.97 RADIATION DOSE: . LIMITATIONS: None. FINDINGS: LUNGS AND PLEURA: A small left pleural effusion is identified. There is a linear density in the left lung base which could represent subsegmental atelectasis or scarring. Remaining lung fie lds are clear. No pneumothorax is seen. AORTA AND GREAT VESSELS: No aneurysm. Contrast bolus not optimized for the aorta. HEART: No pericardial effusion. No significant coronary artery calcifications. PULMONARY ARTERIES: No emboli visualized in the main pulmonary arteries or the segmental branches. HILAR AND MEDIASTINAL STRUCTURES: No identified masses or abnormal nodes. HARDWARE: Patient is status post median sternotomy UPPER ABDOMEN: See results under abdominal CT scan THYROID AND OTHER SOFT TISSUES: No masses. No adenopathy. BONES: No acute or significant finding. 3D MIPS: Confirm above findings. OTHER: No other significant finding. IMPRESSION: No evidence for pulmonary embolic disease is seen. No evidence for a thoracic aortic an eurysm or dissection is seen. Small left pleural effusion. Linear density in the left lung base whi ch could represent linear atelectasis or scarring. Other findings as noted above COMMENT: Quality ID # [id number]: Final reports with documentation of one or more dose reduction techniques (e.g., Automated exposure control, adjustment of the mA and/or kV according to patient size, use of iterative reconstruction technique) TECHNICAL DOCUMENTATION: JOB ID: [id number]- All Rights Reserved
--- NOTE | 2016-11-23 18:39 | RADIOLOGY REPORT (SQ) ---
EXAM DESCRIPTION: CTA ABDOMEN/PELVIS W WO COMPLETED DATE/TIME: 11/23/2016 6:05 pm REASON FOR STUDY: chest pain abdominal pain COMPARISON: None. TECHNIQUE: CT scan of the abdominal aorta extending to the iliac bifurcation performed with intraven ous contrast using helical scanning technique with dynamic intravenous contrast injection. Images rev iewed with lung, soft tissue, and bone windows. Reconstructed coronal and sagittal MPR images reviewe d. All images stored on PACS. Advanced 3D imaging as volume rendering, MIPS, SSD performed? yes All CT scanners at this facility use dose modulation, iterative reconstruction, and/or weight based d osing when appropriate to reduce radiation dose to as low as reasonably achievable (ALARA). [facility]: Dose Right [facility]: CareDose [facility]: Dose Right [facility]: Teradose 4D [facility]: [employer] CONTRAST TYPE AND DOSE: 155 mL Isovue 370 RENAL FUNCTION: Creatinine 0.97 LIMITATIONS: None. FINDINGS: POST-CONTRAST IMAGING: AORTA AND VESSELS: No aneurysm. No dissection. Scattered vascular calcifications are identified. Th ere is a stenosis of the left renal artery. No other obvious stenotic lesions are identified. LUNG BASES: See results under chest CT scan LIVER: Normal size. No masses or dilated ducts. There is fatty infiltration of the liver. SPLEEN: Normal size. No focal lesions. PANCREAS: No masses. No significant calcifications. No adjacent inflammation or peripancreatic fluid collections. Pancreatic duct not dilated. GALLBLADDER: Status post cholecystectomy. ADRENAL GLANDS: No significant masses or asymmetry. RIGHT KIDNEY AND URETER: No mass, calculi or urinary tract obstruction. LEFT KIDNEY AND URETER: No mass, calculi or urinary tract obstruction. There is focal cortical loss in the midportion of the left kidney most consistent with a small renal infarct. RETROPERITONEUM: No retroperitoneal adenopathy, hemorrhage or masses. BOWEL AND PERITONEAL CAVITY: No masses or inflammatory changes. A small amount of perihepatic and pe risplenic ascitic fluid is identified. Pelvic ascitic fluid is identified. APPENDIX: Not identified ABDOMINAL WALL: No masses. No hernias. BONY STRUCTURES: No significant or acute findings. 3-D IMAGING: Confirms the above findings. OTHER: Pelvic ascitic fluid is identified. IMPRESSION: NO ABDOMINAL AORTIC ANEURYSM, DISSECTION. Left renal artery stenosis. There is a small amount of perihepatic and perisplenic ascitic fluid as well as pelvic ascitic fluid. Other findings as noted above TECHNICAL DOCUMENTATION: JOB ID: [id number] Quality ID # [id number]: Final reports with documentation of one or more dose reduction techniques (e.g., Au tomated exposure control, adjustment of the mA and/or kV according to patient size, use of iterative reconstruction technique) 2010 [employer]- All Rights Reserved
[2016-11-23 20:25] VITALS: BP 166/133
--- NOTE | 2016-11-23 21:03 | EKG REPORT ---
SEVERITY:- ABNORMAL ECG - SINUS RHYTHM INFERIOR INFARCT, OLD LATERAL INFARCT, AGE INDETERMINATE CONSIDER ANTERIOR INFARCT PROLONGED QT INTERVAL : Confirmed by: Smita Luque MD 23-Nov-2016 21:02:41
== END 2016-11-23 20:34 | disposition home or self-care (01) ==
LOC: ER 12:33
DX: R18.8 Other ascites (principal); R10.84 Generalized abdominal pain; R07.9 Chest pain, unspecified; R11.10 Vomiting, unspecified; E11.9 Type 2 diabetes mellitus without complications; I25.10 Atherosclerotic heart disease of native coronary artery without angina pectoris; J44.9 Chronic obstructive pulmonary disease, unspecified; E78.00 Pure hypercholesterolemia, unspecified; Z95.1 Presence of aortocoronary bypass graft; Z79.4 Long term (current) use of insulin; Z87.891 Personal history of nicotine dependence; Z90.49 Acquired absence of other specified parts of digestive tract
CPT/HCPCS: 93005; 99285; 36415; 87086; 82553; 82962; 82550; 83735; 85025; 80053; 81001; 84484; 74020; 71010; 71275; 74174; 93010; J3490 ×2; S0119; J7030

== ENCOUNTER 2016-11-28 21:20 | Emergency (ER) | payer MEDICAID ==
[2016-11-28] MEDS ORDERED: METOCLOPRAMIDE HCL ORAL SOLN 10 MG/10 ML UDCUP PO ONE (21:41)
[2016-11-28] MEDS ORDERED: MAG HYDROX/AL HYDROX/SIMETH SUSP 30 ML UDCUP PO ONE (21:41)
[2016-11-28] MEDS ORDERED: LIDOCAINE 2% VISCOUS SOLN 20 ML UDCUP PO ONE (21:41)
--- NOTE | 2016-11-28 21:42 | ER Document Report ---
ED General - General Stated Complaint: CHEST PAIN Time Seen by Provider: 11/28/16 21:28 Notes: Patient is a 56-year-old female well-known to the emergency department with history of recurrent chest and abdomen pain and tobacco abuse, paranoid schizophrenia, previous [place], status post artery bypass surgery 7 weeks ago, insulin-dependent diabetes, medicine noncompliance presents emergency department with report that she had midepigastric pain that radiated to the lower abdomen and nausea with vomiting. No evidence of hematemesis or coffee- ground emesis Patient has been seen previously for the same complaint, last seen 5 days ago with a negative CT of the abdomen. The patient had previous history of a cholecystectomy. The patient had otherwise negative lab work. She was also evaluated in [facility] emergency department 2 days ago for similar symptoms. Patient denies any or diarrhea or dysuria. The patient does report chronic constipation and states she has not had a bowel movement about 12 days. Per son's report at the bedside patient has been noncompliant with follow-up with her cardiac surgeon or dyno technician despite Medications reported Lantus, nitro, Paxil, Seroquel, aspirin, Plavix, Lipitor. Patient has been noncompliant with follow-up in her postop. Son at the bedside states that she was diagnosed with a stroke approximately 1 month ago possibly as a complication from her bypass but she has not followed up with a neurologist or dyno technician or her surgeon despite many discussions in the emergency department recommending this. She states that she does not have a dyno technician, TRAVEL OUTSIDE OF THE [place] IN LAST 30 DAYS: No - Related Data Allergies/Adverse Reactions: haloperidol [From Haldol] Allergy (Verified 11/22/16 18:09) haloperidol lactate [From Haldol] Allergy (Verified 11/22/16 18:09) Past Medical History - Social History Smoking Status: Current Every Day Smoker Family History: Reviewed & Not Pertinent, CAD - Extensive heart disease in mother and brother with brother dying from complications of cardiac stent placement - Past Medical History Cardiac Medical History: Reports: Hx Coronary Artery Disease, Hx Heart Attack - x2, Hx Hypercholesterolemia, Hx Hypertension Pulmonary Medical History: Reports: Hx Bronchitis, Hx COPD Endocrine Medical History: Reports: Hx Diabetes Mellitus Type 2 Renal/ Medical History: Reports: Hx Kidney Stones. Denies: Hx Peritoneal Dialysis GI Medical History: Reports: Hx Gastroesophageal Reflux Disease Psychiatric Medical History: Reports: Hx Bipolar Disorder, Hx Depression, Hx Schizophrenia Past Surgical History: Reports: Hx Cardiac Catheterization, Hx Cardiac Surgery - stents, CABG 09/2016, Hx Cholecystectomy, Hx Coronary Stent - x2 - Immunizations Hx Diphtheria, Pertussis, Tetanus Vaccination: Yes Review of Systems - Review of Systems Constitutional: No symptoms reported Cardiovascular: No symptoms reported Respiratory: No symptoms reported Gastrointestinal: See HPI Neurological/Psychological: See HPI -: Yes All other systems reviewed and negative Physical Exam - Vital signs Vitals: Temp Pulse Ox 97.7 F 100 11/28/16 21:22 11/28/16 21:22 - General General appearance: Appears well, Alert In distress: None - HEENT Head: Normocephalic, Atraumatic Eyes: Normal. No: Pale conjunctiva, Periorbital ecchymosis, Periorbital edema, Scleral icterus, Tears, Other Conjunctiva: Normal. No: Icteric, Injected, Purulent discharge, Other Extraocular movements intact: Yes Eyelashes: Normal Pupils: PERRL - Respiratory Respiratory status: No respiratory distress Chest status: Nontender Breath sounds: Normal Chest palpation: Normal - Cardiovascular Rhythm: Regular Heart sounds: Normal auscultation, S1 appreciated, S2 appreciated Gallop: None auscultated Pulses: Normal: Radial, Dorsalis pedis Normal capillary refill: Yes - Abdominal Inspection: Normal Distension: No distension Bowel sounds: Normal Tenderness: Nontender Organomegaly: No organomegaly - Extremities General upper extremity: Normal inspection, Nontender, Normal color, Normal ROM , Normal strength, Normal temperature General lower extremity: Normal inspection, Nontender, Normal color, Normal ROM , Normal strength, Normal temperature, Normal weight bearing - Neurological Neuro grossly intact: Yes Cognition: Inattentive Orientation: Disoriented to events Darron Coma Scale Eye Opening: Spontaneous [place] Coma Scale Verbal: Oriented [place] Coma Scale Motor: Obeys Commands [place] Coma Scale Total: 15 Speech: Normal Cranial nerves: Normal. No: Facial palsy, Forehead sparing, Gaze palsy, Sensory deficit, Tongue deviation, Other Cerebellar coordination: Normal. No: Gait ataxia, Heel-ca, Finger-nose rhombey, Rapid alt. 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 No: Weakness Sensory: Normal - Skin Skin Temperature: Warm Skin Moisture: Dry Skin Color: Normal Skin Turgor: Elastic Course - Re-evaluation Re-evalutation: 11/28/16 21:30 patient is a 48-year-old female is hemodynamically stable, no acute distress and afebrile. Presentation today is consistent with constipation. Patient to receive p.o. GI cocktail lab work to be sent. Patient offered an enema which she has accepted. 11/28/16 23:37 Lab work otherwise unremarkable except for troponin of 0.038. She has had multiple elevated troponins in the past 6 visits she has been here since she had her bypass. In this 1 is not elevated above her AMI cut off nor higher than any of her other previous troponins. Patient agrees to stay for repeat troponin. She denies any chest pain. Any shortness of breath. States that her epigastric pain resolved with GI cocktail. 11/29/16 053:00 Repeat troponin elevated 0.048 which is still below the AMI cut off. Patient denies any chest pain since her entire stay in the department nor any today. Her repeat EKG does not show any changes since she has been in the department. Patient states that her abdominal pain is completely resolved after enema and approximately 4 bowel movements in the department discussion with son at the bedside recommending to follow-up with Abe regarding cardiology, neurology and cardiac surgery. Also offered cardiology follow-up available in [place]. He agrees with plan.. - Vital Signs Vital signs: Temp Pulse Resp BP Pulse Ox 98.3 F 72 16 135/80 H 98 11/29/16 03:18 11/29/16 03:18 11/29/16 03:18 11/29/16 03:18 11/29/16 03:18 - Laboratory Result Diagrams: 11/28/16 21:35 11/28/16 21:35 Laboratory results interpreted by me: 11/28/16 11/28/16 21:35 21:35 Hgb 10.9 L Hct 32.9 L RDW 17.9 H Glucose 264 H Direct Bilirubin 0.8 H Albumin 3.4 L - Diagnostic Test Radiology reviewed: Image reviewed, Reports reviewed - EKG Interpretation by Ne EKG shows normal: Sinus rhythm Rate: Normal Rhythm: NSR When compared to previous EKG there are: No significant change Discharge - Discharge Clinical Impression: Constipation Qualifiers: Constipation type: unspecified constipation type Qualified Code(s): K59.00 - Constipation, unspecified Abdominal pain Qualifiers: Abdominal location: generalized Qualified Code(s): R10.84 - Generalized abdominal pain Condition: Good Disposition: HOME, SELF-CARE Additional Instructions: It is very important for you to follow up with you care team at [facility]. This includes your cardiac surgeon and dyno technician. If you do not have a dyno technician, please schedule an appointment with the provider listed here on your discharge instructions. ABDOMINAL PAIN: There are many causes of abdominal pain. Pain can mean a serious problem requiring surgery (such as appendicitis). It can also be an innocent problem that goes away on its own (such as a viral infection). Often, time must pass to determine the cause of pain. The physician does not feel that hospitalization is necessary, at present. Things may change within the next 24 hours. Call the doctor or come back for re- examination if any problems occur, such as: (1) Pain that becomes more severe, steady, or becomes concentrated in one specific area. Also, pain that is more severe with movement or coughing. (2) Vomiting that persists or becomes more frequent. (3) Blood in the vomitus, urine, or bowel movements. Blood in the stool may have a tarry or black appearance. (4) Shaking chills or fever greater than 100 degrees F. (5) The abdomen becomes more distended or swollen. (6) Bowel movements cease. (7) Failure to improve as expected. NORMAL EXAM AND WORKUP: At this time, your examination and workup show no significant abnormality. No significant abnormal physical findings are noted. All laboratory, EKG, and imaging (x-ray, CT scans, ultrasound) studies that were ordered show no significant abnormality. Although your examination and all studies that were ordered showed no significant abnormal finding, there are no examinations and no studies that are 100% accurate. There is always the possibility that some abnormality could exist and not be detected with physical examination or within the limits and capabilities of laboratory and other studies. You should return or follow up as you were instructed on your visit today for further evaluation if your symptoms do not resolve. CONSTIPATION: Constipation is a common problem. It is especially likely as you get older. Constipation is a common cause of abdominal pain, but sometimes causes no symptoms at all. Causes of constipation include certain medications, dehydration, diets, inactivity, and low-fiber intake. Rarely, it can be a symptom of underlying disease. The physician has evaluated you for this. Avoid constipation by eating a diet high in fiber, fruits, and vegetables. Drink plenty of liquids. Get regular exercise. If possible, avoid constipating medicines like narcotic pain medication. Some vitamin tablets can cause constipation. Stool softeners may be needed for difficult cases. An excellent stool softener is Konsyl which is available at [employer], and [employer]. Just add a teaspoon to a glass of pineapple or orange juice daily or twice a day if needed. Laxatives are useful for occasional constipation. You should use them only when necessary. Too-frequent use can make your bowels dependent on them. Some over the counter laxatives available without prescription are: Milk of Magnesia, 1-2 tablespoons twice a day Dulcolax, 5 mg pill or 10 mg suppository. Citrate of Magnesia, 4-5 ounces a day for a day or two For acute constipation, Fleet's Enemas and Dulcolax suppositories are helpful. Chronic, wool cleaner use of laxatives or enemas is not a good idea. Your bowel may become dependant on them. You do not need to have a bowel movement every day. Many people do fine with a bowel movement every three or four days. You should call your doctor or return for re-evaluation if you pass blood in the stool, or if you develop fever or increasing abdominal pain. BULK LAXATIVES: Bulk laxatives make the stool softer and bulkier. They're useful for preventing constipation. You can choose between psyllium, methylcellulose, and polycarbophil. They are available without a prescription. Psyllium brand names include Konsyl, Metamucil, Perdiem, Effer-Syllium and Hydrocil. It's available as powder, flavored drink powder, or chewable. The usual dose of psyllium powder is one heaping teaspoon in water each morning, increasing to twice a day if needed. Wolfe juice can disguise the slightly grainy texture. Methylcellulose is marketed as Citrucel and other brands. The average dose is two grams in a cup of water one to three times a day. Polycarbophil is marketed as Fiber-Con. Take two tablets with a cup of water one to three times a day. LAXATIVE: A laxative agent has been prescribed for your condition. This should result in passage of stool within 12 hours. Some mild intestinal cramping is common as the hard stool begins to move. You may have loose or runny stools for a short time. Contact your doctor if there is severe cramping, vomiting, or passage of blood. Return for further care if this medicine fails to improve your condition. FOLLOW-UP CARE: If you have been referred to a physician for follow-up care, call the physician s office for an appointment as you were instructed or within the next two days. If you experience worsening or a significant change in your symptoms, notify the physician immediately or return to the Emergency Department at any time for re-evaluation. Referrals: TREVON SKAGGS PA-C [Primary Care Provider] - Follow up as needed ARMANDO FLORES MD [ACTIVE STAFF] - 11/30/16 (Cardiology-call on Wednesday!)
[2016-11-28 21:51] LABS: ABSOLUTE BASOPHILS # (AUTO) 0.1 10^3/uL (0.0-0.2); ABSOLUTE EOSINOPHILS # (AUTO) 0.1 10^3/uL (0.0-0.6); ABSOLUTE LYMPHOCYTES (AUTO) 2.6 10^3/uL (0.5-4.7); ABSOLUTE MONOCYTES (AUTO) 0.6 10^3/uL (0.1-1.4); ABSOLUTE NEUT (AUTO) 3.6 10^3/uL (1.7-8.2); BASOPHILS % (AUTO) 1.2 % (0-2); EOSINOPHILS % (AUTO) 1.4 % (0-6); HEMATOCRIT 32.9 % (36.0-47.0); HEMOGLOBIN 10.9 g/dL (12.0-15.5); HGB HCT DIFFERENCE -0.2; LYMPHOCYTES % (AUTO) 37.3 % (13-45); MEAN CORPUSCULAR HEMOGLOBIN 27.9 pg (27.0-33.4); MEAN CORPUSCULAR HGB CONC 33.1 g/dL (32.0-36.0); MEAN CORPUSCULAR VOLUME 84 fl (80-97); MONOCYTES % (AUTO) 8.6 % (3-13); RED CELL DISTRIBUTION WIDTH 17.9 % (11.5-14.0); SEGMENTED NEUTROPHILS % (AUTO) 51.5 % (42-78); WHITE BLOOD COUNT 7.1 10^3/uL (4.0-10.5)
[2016-11-28 22:03] LABS: ALANINE AMINOTRANSFERASE 21 U/L (9-52); ALBUMIN 3.4 g/dL (3.5-5.0); ALKALINE PHOSPHATASE 96 U/L (38-126); ANION GAP 10 (5-19); ASPARTATE AMINO TRANSFERASE 30 U/L (14-36); BILIRUBIN,DIRECT 0.8 mg/dL (0.0-0.4); BILIRUBIN,TOTAL 1.1 mg/dL (0.2-1.3); BLOOD UREA NITROGEN 8 mg/dL (7-20); CALCIUM 9.2 mg/dL (8.4-10.2); CARBON DIOXIDE 28 mmol/L (22-30); CHLORIDE 104 mmol/L (98-107); CREATININE RESULT 0.89 mg/dL (0.52-1.25); GLUCOSE 264 mg/dL (75-110); SODIUM 141.5 mmol/L (137-145); TOTAL PROTEIN 7.1 g/dL (6.3-8.2)
--- NOTE | 2016-11-28 22:38 | RADIOLOGY REPORT (SQ) ---
EXAM DESCRIPTION: KUB/ABDOMEN (SINGLE VIEW) COMPLETED DATE/TIME: 11/28/2016 10:14 pm REASON FOR STUDY: constipation COMPARISON: CT abdomen and pelvis 11/23/2016 NUMBER OF VIEWS: One view. TECHNIQUE: Supine radiographic image of the abdomen acquired. LIMITATIONS: None. FINDINGS: BOWEL GAS PATTERN: Nonspecific, nonobstructed bowel gas pattern. Stool is seen throughout a rather redundant colon. CALCIFICATIONS: No suspicious calcifications. SOFT TISSUES: No gross mass or suggestion of organomegaly. HARDWARE: Surgical clips are seen throughout the abdomen. BONES: No acute fracture. No worrisome bone lesions. OTHER: No other significant finding. IMPRESSION: Stool seen throughout the colon is consistent with given history of constipation. TECHNICAL DOCUMENTATION: JOB ID: [id number] [employer]- All Rights Reserved
[2016-11-28] MEDS ORDERED: KETOROLAC TROMETHAMINE INJ/PF 30 MG/1 ML SDV IV ONE (23:15)
[2016-11-28] MEDS ORDERED: ONDANSETRON HCL INJ/PF 4 MG/2 ML SDV IV ONE (23:15)
[2016-11-28] MEDS ORDERED: DOCUSATE SODIUM 100 MG CAPSULE PO ONE (23:36)
[2016-11-28] MEDS ORDERED: MINERAL OIL ENEMA 133 ML PR ONE (23:39)
[2016-11-28] MEDS ORDERED: MINERAL OIL 30 ML UDCUP PR ONE (23:42)
[2016-11-29 03:19] VITALS: BP 135/80
--- NOTE | 2016-11-29 13:05 | EKG REPORT ---
SEVERITY:- ABNORMAL ECG - SINUS RHYTHM VENTRICULAR PREMATURE COMPLEX INFERIOR INFARCT, AGE INDETERMINATE LATERAL INFARCT, AGE INDETERMINATE CONSIDER ANTERIOR INFARCT : Confirmed by: Ermias Smith 29-Nov-2016 13:03:41
--- NOTE | 2016-11-29 13:05 | EKG REPORT ---
SEVERITY:- ABNORMAL ECG - SINUS RHYTHM INFERIOR INFARCT, AGE INDETERMINATE LATERAL INFARCT, AGE INDETERMINATE CONSIDER ANTERIOR INFARCT PROLONGED QT INTERVAL : Confirmed by: Ermias Smith 29-Nov-2016 13:03:49
== END 2016-11-29 03:15 | disposition home or self-care (01) ==
LOC: ER 21:20
DX: K59.00 Constipation, unspecified (principal); R10.84 Generalized abdominal pain; R07.9 Chest pain, unspecified; R10.9 Unspecified abdominal pain; F17.200 Nicotine dependence, unspecified, uncomplicated; F20.0 Paranoid schizophrenia; I25.2 Old myocardial infarction; Z95.5 Presence of coronary angioplasty implant and graft; E11.9 Type 2 diabetes mellitus without complications; Z79.4 Long term (current) use of insulin
CPT/HCPCS: 93005 ×2; 99284; 96374; 96375; 36415; 83690; 85025; 80053; 84484; 74000; 93010 ×2; J3490 ×5; J1885; J2405

== ENCOUNTER 2016-12-01 20:48 | Emergency (ER) | payer MEDICAID ==
[2016-12-01 21:11] VITALS: BP 119/82
== END 2016-12-01 23:40 | disposition left against medical advice (07) ==
LOC: ER 20:48
DX: Z53.21 Procedure and treatment not carried out due to patient leaving prior to being seen by health care provider (principal)

== ENCOUNTER 2016-12-02 09:13 | Observation (INO) | payer MEDICAID ==
--- NOTE | 2016-12-02 09:36 | ER Document Report ---
ED General - General Stated Complaint: CHEST PAIN Time Seen by Provider: 12/02/16 09:28 Notes: 56-year-old female with Schizophrenia coronary artery disease chronic medication noncompliance, chronic intermittent chest pain seen multiple times in his emergency department presents today with chest pain, sharp right-sided nonradiating and severe associated with leila-umbilical abdominal pain nausea and vomiting 1 which started last night at 8 PM. It was constant all night and she did not sleep. She was here last night to be seen but left without being seen secondary to the long wait. She came in this morning via EMS. She did not take meds at home, but was given aspirin and nitro by EMS. This did not change the pain. This is similar to the past episodes of this pain. Reviewed patient's chart. She was seen here a week or so ago, and had 3 troponins all of which were mildly elevated but none of which meet criteria for AMI. She was told to follow -up with primary care and cardiology and in fact has an appointment today at 1 with her primary doctor. TRAVEL OUTSIDE OF THE [place] IN LAST 30 DAYS: No - Related Data Allergies/Adverse Reactions: haloperidol [From Haldol] Allergy (Verified 12/02/16 09:47) haloperidol lactate [From Haldol] Allergy (Verified 12/02/16 09:47) Past Medical History - Social History Smoking Status: Current Every Day Smoker Cigarette use (# per day): Yes Smoking Education Provided: Yes Family History: Reviewed & Not Pertinent, CAD - Extensive heart disease in mother and brother with brother dying from complications of cardiac stent placement - Past Medical History Cardiac Medical History: Reports: Hx Coronary Artery Disease, Hx Heart Attack - x2, Hx Hypercholesterolemia, Hx Hypertension Pulmonary Medical History: Reports: Hx Bronchitis, Hx COPD Endocrine Medical History: Reports: Hx Diabetes Mellitus Type 2 Renal/ Medical History: Reports: Hx Kidney Stones. Denies: Hx Peritoneal Dialysis GI Medical History: Reports: Hx Gastroesophageal Reflux Disease Psychiatric Medical History: Reports: Hx Bipolar Disorder, Hx Depression, Hx Schizophrenia Past Surgical History: Reports: Hx Cardiac Catheterization, Hx Cardiac Surgery - stents, CABG 09/2016, Hx Cholecystectomy, Hx Coronary Stent - x2 - Immunizations Hx Diphtheria, Pertussis, Tetanus Vaccination: Yes Review of Systems - Review of Systems Notes: REVIEW OF SYSTEMS GEN: Denies fever, chills, weight loss. Generalized weakness. ENT: Denies sore throat, nasal discharge, ear pain EYES: Denies blurry vision, eye pain, discharge CV: Chest pain, no palpitations or edema a RESP: Soreness of breath, intermittent cough GI: Abdominal pain nausea vomiting no diarrhea MSK: Denies joint pain/swelling, edema, SKIN: Denies rash, skin lesions LYMPH: Denies swollen glands/lymph nodes NEURO: Denies headache, focal weakness or numbness, dizziness PSYCH: History of schizophrenia and depression PHYSICAL EXAMINATION General: No acute distress, well-nourished Head: Atraumatic, normocephalic ENT: Mouth normal, oropharynx moist, no exudates or tonsillar enlargement Eyes: Conjunctiva normal, pupils equal, lids normal Neck: No JVD, supple, no guarding CVS: Normal rate, regular rhythm, no murmurs Resp: No resp distress, equal and normal breath sounds bilaterally GI: Nondistended, soft, no tenderness to palpation, no rebound or guarding Ext: No deformities, no edema, normal range of motion in upper and lower ext Back: No CVA or midline TTP Skin: No rash, warm Lymphatic: No lymphadeopathy noted Neuro: Awake, alert. Face symmetric. GCS 15. Gastric: Affect appears normal, not but some spotting to internal stimuli, well- groomed, normal thought process Physical Exam - Vital signs Vitals: Temp Pulse Resp BP Pulse Ox 98.3 F 74 18 124/77 100 12/02/16 09:20 12/02/16 09:20 12/02/16 09:20 12/02/16 09:20 12/02/16 09:20 Course - Re-evaluation Re-evalutation: 12/02/16 09:35 56-year-old female with coronary artery disease status post bypass about 2 months ago with chronic medication noncompliance, ongoing smoking, significant psychiatric disease and multiple ED presentations for chest and abdominal pain. At this time she is in no acute distress with a normal cardiopulmonary exam. Her prehospital EKG looks normal. We will obtain a 12-lead EKG here, her opiates for pain control since the nitro has not worked and I have a low suspicion that this chest pain is in fact cardiac. We will get troponin, and if elevated repeat. I will community with the patient's focuser. 12/02/16 11:38 Patient's repeat ECG is unchanged, her troponin is negative. The rest of her chemistry is normal but her CBC is hemolyzed. I did perform a femoral stick to obtain blood. On reassessment at 11:38 AM the patient sitting up in bed holding on emesis bag and is still quite nauseous with with abdominal and chest pain. She has been worked up several times for this however given her current condition she is unable to be discharged home. I will go to a Noncon CT scan, and admit her to the hospitalist. 12/02/16 12:[address] Bolanos from hospitalist service who would like to wait for admitted patient until CT is done. This is been ordered. 12/02/16 13:14 Patient remains in severe pain. I attempted both an external jugular ultrasound -guided IV however her veins are very diminutive and easily collapsible and was unsuccessful. Reviewing her past imaging she had a small amount of ascites with some renal artery stenosis in the past, she could have some sort of abdominal vascular disease however at this point I am unable to obtain a contrast CT. I will consult radiology to place an IV in her, and proceed with noncontrast scan at this time. 12/02/16 13:[address] Parson[address] shows only sequela of her cardiac cath and left groin. - Vital Signs Vital signs: Temp Pulse Resp BP Pulse Ox 98.3 F 74 17 192/110 H 99 12/02/16 09:20 12/02/16 09:20 12/02/16 14:00 12/02/16 12:54 12/02/16 13:00 - Laboratory Result Diagrams: 12/02/16 12:08 12/02/16 10:10 Laboratory results interpreted by me: 12/02/16 12/02/16 10:10 12:08 WBC 18.6 H MCH 26.8 L RDW 18.0 H Absolute Neutrophils 14.0 H Potassium 3.3 L Glucose 189 H - EKG Interpretation by Me EKG shows normal: Sinus rhythm Rhythm: NSR, PVC's When compared to previous EKG there are: No significant change Additional EKG results interpreted by me: 12/02/16 09:40 Minimal ectopy. Questionable slightly inverted T-wave in V2 compared to prior. No other acute ST or T-wave changes compared to prior. Old appearing T-wave inversions in high lateral leads I and aVL, no true ST depression. Procedures - Additional Procedures IV insertion Time performed: 10:05 Additional Procedures: Other - Femoral venous blood draw. Indication: Nursing failure to obtain IV access. Consent: Verbal Procedure in detail: Left hip placed in abduction and external rotation. Underwear removed. Coarsening applied and allowed to dry. Using landmark technique palpate in the femoral pulse, the femoral vein was accessed using an 18-gauge needle on a 30 cc syringe and blood was withdrawn. Pressure was held for 2 minutes thereafter, Band-Aid applied. No complications. Tolerated well. Discharge - Discharge Clinical Impression: Abdominal pain, generalized Chest pain Qualifiers: Chest pain type: unspecified Qualified Code(s): R07.9 - Chest pain, unspecified Condition: Good Disposition: ADMITTED INPATIENT Admitting Provider: Hospitalist Unit Admitted: Medical Floor
[2016-12-02] MEDS ORDERED: MAG HYDROX/AL HYDROX/SIMETH SUSP 30 ML UDCUP PO ONE ×2 (09:42→10:09)
[2016-12-02] MEDS ORDERED: ONDANSETRON HCL INJ/PF 4 MG/2 ML SDV IV ONE (09:42)
[2016-12-02] MEDS ORDERED: ONDANSETRON 4 MG TAB.RAPDIS PO ONE (10:09)
--- NOTE | 2016-12-02 10:39 | RADIOLOGY REPORT (SQ) ---
EXAM DESCRIPTION: CHEST SINGLE VIEW COMPLETED DATE/TIME: 12/02/2016 10:29 am REASON FOR STUDY: CP h/o bypass COMPARISON: 11/23/2016 EXAM PARAMETERS: NUMBER OF VIEWS: One view. TECHNIQUE: Single frontal radiographic view of the chest acquired. RADIATION DOSE: NA LIMITATIONS: None. FINDINGS: LUNGS AND PLEURA: The lungs are free of infiltrates. There is no effusion. There is no m ass. MEDIASTINUM AND HILAR STRUCTURES: No masses. Contour normal. HEART AND VASCULAR STRUCTURES: Cardiomegaly without failure. BONES: No acute findings. HARDWARE: Sternotomy wires. Graft markers OTHER: No other significant finding. IMPRESSION: Cardiomegaly without failure. TECHNICAL DOCUMENTATION: JOB ID: [id number]
[2016-12-02 11:01] LABS: ANION GAP 11 (5-19); BLOOD UREA NITROGEN 8 mg/dL (7-20); CALCIUM 9.1 mg/dL (8.4-10.2); CARBON DIOXIDE 27 mmol/L (22-30); CHLORIDE 102 mmol/L (98-107); CREATININE RESULT 0.83 mg/dL (0.52-1.25); GLUCOSE 189 mg/dL (75-110); POTASSIUM 3.3 mmol/L (3.6-5.0); SODIUM 139.8 mmol/L (137-145)
[2016-12-02] MEDS ORDERED: FENTANYL CITRATE INJ/PF 100 MCG/2 ML AMPUL IM ONE (11:11)
[2016-12-02 12:27] LABS: ABSOLUTE BASOPHILS # (AUTO) 0.1 10^3/uL (0.0-0.2); ABSOLUTE MONOCYTES (AUTO) 1.4 10^3/uL (0.1-1.4); BASOPHILS % (AUTO) 0.7 % (0-2); EOSINOPHILS % (AUTO) 0.2 % (0-6); HEMATOCRIT 42.5 % (36.0-47.0); HEMOGLOBIN 13.7 g/dL (12.0-15.5); HGB HCT DIFFERENCE -1.4; LYMPHOCYTES % (AUTO) 16.2 % (13-45); MEAN CORPUSCULAR HEMOGLOBIN 26.8 pg (27.0-33.4); MEAN CORPUSCULAR HGB CONC 32.2 g/dL (32.0-36.0); MEAN CORPUSCULAR VOLUME 83 fl (80-97); MONOCYTES % (AUTO) 7.5 % (3-13); RED BLOOD COUNT 5.11 10^6/uL (3.72-5.28); SEGMENTED NEUTROPHILS % (AUTO) 75.4 % (42-78); WHITE BLOOD COUNT 18.6 10^3/uL (4.0-10.5)
--- NOTE | 2016-12-02 14:15 | RADIOLOGY REPORT (SQ) ---
EXAM DESCRIPTION: CT ABD/PELVIS NO ORAL OR IV COMPLETED DATE/TIME: 12/02/2016 1:26 pm REASON FOR STUDY: vomiting r/o stone COMPARISON: 10/05/2013, 11/23/2016 CT abdomen pelvis TECHNIQUE: CT scan of the abdomen and pelvis performed without intravenous or oral contrast. Images reviewed with lung, soft tissue, and bone windows. Reconstructed coronal and sagittal MPR images revi ewed. All images stored on PACS. All CT scanners at this facility use dose modulation, iterative reconstruction, and/or weight based d osing when appropriate to reduce radiation dose to as low as reasonably achievable (ALARA). [facility]: Dose Right [facility]: CareDose [facility]: Dose Right [facility]: Teradose 4D [facility]: [employer] RADIATION DOSE: Up-to-date CT equipment and radiation dose reduction techniques were employed. CTDIv ol: 18.8 mGy. DLP: 933 mGy-cm.mGy. LIMITATIONS: None. FINDINGS: LOWER CHEST: Bandlike atelectasis left lung base. NON-CONTRASTED LIVER, SPLEEN, ADRENALS: Evaluation limited by lack of IV contrast. No identified sign ificant masses. PANCREAS: No masses. No peripancreatic inflammatory changes. GALLBLADDER: Surgically absent RIGHT KIDNEY AND URETER: No suspicious masses. Assessment limited by lack of IV contrast. No signif icant calcifications. No hydronephrosis or hydroureter. LEFT KIDNEY AND URETER: No suspicious masses. Assessment limited by lack of IV contrast. 2 mm left midpole intrarenal nonobstructive stone. No hydronephrosis or hydroureter. AORTA AND RETROPERITONEUM: No aneurysm. No retroperitoneal masses or adenopathy. BOWEL AND PERITONEAL CAVITY: There is trace right subphrenic fluid and minimal fluid in the pelvic cu l-de-sac, similar compared to 11/23/2016. No free intraperitoneal air. No CT evidence of bowel obstruction. APPENDIX: Normal. PELVIS, BLADDER, AND ABDOMINAL WALL:Small amount of free pelvic fluid. Normal size uterus and ovarie s. Calcified 1 cm rightward uterine fundal fibroid. No adenopathy. BONES: No significant findings. OTHER: In the left upper thigh/inguinal region, a 3.6 cm soft tissue density nodule is present just v entral to the left common femoral artery and vein likely a hematoma post recent heart catheterization . Mild surrounding stranding in the adjacent fat. Report discussed with Dr. Dominguez in the emergency room. IMPRESSION: Trace free fluid in the right subphrenic and pelvic regions similar compared to 7. No CT evidence of bowel obstruction or urinary outflow obstruction. Post cholecystectomy No CT evidence of acute appendicitis COMMENT: Quality ID # [id number]: Final reports with documentation of one or more dose reduction techniques (e.g., Automated exposure control, adjustment of the mA and/or kV according to patient size, use of iterative reconstruction technique) TECHNICAL DOCUMENTATION: JOB ID: [id number] [employer]- All Rights Reserved
[2016-12-02] MEDS ORDERED: MORPHINE SULFATE 10 MG/ML INJ IV ONE (15:03)
[2016-12-02 15:06] LABS: APPEARANCE,URINE CLOUDY; BILIRUBIN,URINE NEGATIVE (NEGATIVE); GLUCOSE, URINE >=500 mg/dL (NEGATIVE); KETONES,URINE TRACE mg/dL (NEGATIVE); LEUKOCYTE ESTERASE,URINE NEGATIVE (NEGATIVE); NITRITE,URINE NEGATIVE (NEGATIVE); PROTEIN,URINE 30 mg/dL (NEGATIVE); URINE SPECIFIC GRAVITY 1.006
[2016-12-02] MEDS ORDERED: ACETAMINOPHEN 325 MG TABLET PO PRN (16:55)
[2016-12-02] MEDS ORDERED: ONDANSETRON HCL INJ/PF 4 MG/2 ML SDV IV PRN (16:55)
[2016-12-02] MEDS ORDERED: MAGNESIUM HYDROXIDE SUSP 30 ML UDCUP PO PRN (16:55)
[2016-12-02] MEDS ORDERED: ALBUTEROL SULFATE HFA (90 MCG/PUFF) 8 GM MDI (1 MDI/ER DISP) IH PRN (17:01)
[2016-12-02] MEDS ORDERED: (PENDING PHARMACY ID) (Clonazepam [Klonopin] 0.5 MG) PO PRN (17:01)
[2016-12-02] MEDS ORDERED: ALBUTEROL SULFATE HFA (90 MCG/PUFF) 200 PUFF/8.5 GM MDI IH PRN (17:34)
--- NOTE | 2016-12-02 17:42 | PDOC H&P ---
History of Present Illness Admission Date/PCP: 12/02/16 14:08 TREVON SKAGGS PA-C Patient complains of: Chest pain and abdominal pain. History of Present Illness: CHARLEY SHERMAN is a 56 year old female presents to the hospital with complaint of abdominal pain. ER also reports the patient later complained of chest pain. Patient reports that she has not had a bowel movement in the last 3 days. Patient states that sometimes she goes 10-12 days without having a bowel movement. Patient states that she does try to use stool softeners which occasionally help. Patient during my encounter denied any chest pain however states that she was having abdominal pain. Patient also states that she has been vomiting. Patient states that sometimes she is not able to eat very much due to her having to vomit. Reports that she recently had four-vessel CABG. Past Medical History Cardiac Medical History: Reports: Coronary Artery Disease, Myocardial Infarction - x2, Hyperlipidema, Hypertension Pulmonary Medical History: Reports: Bronchitis, Chronic Obstructive Pulmonary Disease (COPD) Endocrine Medical History: Reports: Diabetes Mellitus Type 2 GI Medical History: Reports: Gastroesophageal Reflux Disease Psychiatric Medical History: Reports: Bipolar Disorder, Depression Past Surgical History Past Surgical History: Reports: Cardiac Catheterization, Cholecystectomy, Coronary Stent - x2 Social History Smoking Status: Current Every Day Smoker Frequency of Alcohol Use: None Hx Recreational Drug Use: No Hx Prescription Drug Abuse: No - Advance Directive Resuscitation Status: Full Code Family History Family History: Reviewed & Not Pertinent, CAD - Extensive heart disease in mother and brother with brother dying from complications of cardiac stent placement Parental Family History Reviewed: Yes Children Family History Reviewed: Yes Sibling(s) Family History Reviewed.: Yes Medication/Allergy Home Medications: Albuterol Sulfate [Proair HFA] 2 puff IN Q4HP PRN 11/23/16 Atorvastatin Calcium [Lipitor 40 mg Tablet] 40 mg PO DAILY 11/23/16 Clonazepam [Klonopin] 0.5 mg PO Q12HP PRN 11/23/16 Furosemide [Lasix 20 mg Tablet] 20 mg PO DAILY 11/23/16 Insulin Aspart [Novolog Flexpen] 4 unit SQ Q8 11/23/16 Insulin Glargine,Hum.rec.anlog [Lantus] 25 unit SQ QHS 11/23/16 Magnesium Oxide [Mag-Ox 400 mg Tablet] 400 mg PO DAILY 11/23/16 Metoprolol Tartrate [Lopressor 25 mg Tablet] 12.5 mg PO Q12 11/23/16 Pantoprazole Sodium [Protonix] 40 mg PO Q12 11/23/16 Paroxetine HCl [Paxil] 40 mg PO DAILY 11/23/16 Potassium Chloride [Klor-Con] 20 meq PO DAILY 11/23/16 Quetiapine Fumarate [Seroquel] 200 mg PO QAM 11/23/16 Quetiapine Fumarate [Seroquel] 300 mg PO QHS 11/23/16 Sucralfate [Carafate 1 gm Tablet] 1 gm PO Q6 11/23/16 Allergies/Adverse Reactions: haloperidol [From Haldol] Allergy (Verified 12/02/16 09:47) haloperidol lactate [From Haldol] Allergy (Verified 12/02/16 09:47) Review of Systems Constitutional: ABSENT: chills, fever(s), headache(s), weight gain, weight loss Eyes: ABSENT: visual disturbances Ears: ABSENT: hearing changes Cardiovascular: ABSENT: chest pain, dyspnea on exertion, edema, orthropnea, palpitations Respiratory: ABSENT: cough, hemoptysis Gastrointestinal: PRESENT: constipation, nausea, vomiting Genitourinary: ABSENT: dysuria, hematuria Musculoskeletal: ABSENT: joint swelling Integumentary: ABSENT: rash, wounds Neurological: ABSENT: abnormal gait, abnormal speech, confusion, dizziness, focal weakness, syncope Psychiatric: ABSENT: anxiety, depression, homidical ideation, suicidal ideation Endocrine: ABSENT: cold intolerance, heat intolerance, polydipsia, polyuria Hematologic/Lymphatic: ABSENT: easy bleeding, easy bruising Physical Exam Vital Signs: Temp Pulse Resp BP Pulse Ox 98.3 F 74 17 192/110 H 100 12/02/16 09:20 12/02/16 09:20 12/02/16 14:00 12/02/16 12:54 12/02/16 16:31 General appearance: PRESENT: no acute distress, well-developed, well-nourished Head exam: PRESENT: atraumatic, normocephalic Eye exam: PRESENT: conjunctiva pink, EOMI. ABSENT: scleral icterus Ear exam: PRESENT: normal external ear exam Mouth exam: PRESENT: moist, tongue midline Neck exam: ABSENT: carotid bruit, JVD, lymphadenopathy, thyromegaly Respiratory exam: PRESENT: clear to auscultation ailyn. ABSENT: rales, rhonchi, wheezes Cardiovascular exam: PRESENT: RRR. ABSENT: diastolic murmur, rubs, systolic murmur Pulses: PRESENT: normal dorsalis pedis pul Vascular exam: PRESENT: normal capillary refill GI/Abdominal exam: PRESENT: normal bowel sounds, soft. ABSENT: distended, guarding, mass, organolmegaly, rebound, tenderness Rectal exam: PRESENT: deferred Extremities exam: PRESENT: full ROM. ABSENT: calf tenderness, clubbing, pedal edema Neurological exam: PRESENT: alert, awake, oriented to person, oriented to place , oriented to time, oriented to situation, CN II-XII grossly intact. ABSENT: motor sensory deficit Psychiatric exam: PRESENT: appropriate affect, normal mood. ABSENT: homicidal ideation, suicidal ideation Skin exam: PRESENT: dry, intact, warm. ABSENT: cyanosis, rash Results Laboratory Results: 12/02/16 14:28 Urine Color YELLOW Urine Appearance CLOUDY Urine pH 8.0 Ur Specific [place] 1.006 Urine Protein 30 H Urine Glucose (UA) >=500 H Urine Ketones TRACE H Urine Blood NEGATIVE Urine Nitrite NEGATIVE Ur Leukocyte Esterase NEGATIVE Urine WBC (Auto) 1 Urine RBC (Auto) 0 Impressions: Chest X-Ray 12/02/16 09:42 IMPRESSION: Cardiomegaly without failure. Abdomen/Pelvis CT 12/02/16 13:13 IMPRESSION: Trace free fluid in the right subphrenic and pelvic regions similar compared to 11/23/2016. No CT evidence of bowel obstruction or urinary outflow obstruction. Post cholecystectomy No CT evidence of acute appendicitis Assessment & Plan - Diagnosis (1) Abdominal pain, generalized Is this a current diagnosis for this admission?: Yes Plan: Patient's abdomen is benign during my encounter. Patient has CT of abdomen and demonstrated no acute process. Will write for soapsuds enema along with additional bowel regimen medication. (2) Chest pain Qualifiers: Chest pain type: unspecified Qualified Code(s): R07.9 - Chest pain, unspecified Is this a current diagnosis for this admission?: Yes Plan: Patient recently had four-vessel CABG approximately 3 months ago: First set of troponins are negative will continue to trend troponins. Patient did not complain of chest pain during my encounter patient only complained of abdominal pain (3) Constipation Qualifiers: Constipation type: unspecified constipation type Qualified Code(s): K59.00 - Constipation, unspecified Is this a current diagnosis for this admission?: Yes Plan: We will place patient on bowel regimen. Will give soapsuds enema (4) Leukocytosis Is this a current diagnosis for this admission?: Yes Plan: Secondary stress response: Will continue to monitor. (5) Gastroparesis Is this a current diagnosis for this admission?: Yes Plan: Will continue to monitor. (6) Hypokalemia Is this a current diagnosis for this admission?: Yes Plan: Will give Potassium replacement. (7) DVT prophylaxis Is this a current diagnosis for this admission?: Yes Plan: SCD - Time Time Spent: 30 to 50 Minutes Anticipated discharge: Home with Homehealth
[2016-12-02] MEDS ORDERED: CLONAZEPAM 1 MG TABLET PO PRN (18:00)
[2016-12-02] MEDS ORDERED: GLYCERIN (PEDIATRIC) SUPP.RECT PR ONE (18:30)
[2016-12-02] MEDS ORDERED: POTASSIUM CHLORIDE 10 MEQ TABLET.SA PO ONE (19:00)
[2016-12-02] MEDS ORDERED: INFLUENZA ADLT QUAD (36MOS+) 2017-18 VAC 0.5 ML SYR IM PRN (19:41)
[2016-12-02] MEDS: DOCUSATE SODIUM 100 MG CAPSULE PO SCH (20:46)
[2016-12-02] MEDS: SUCRALFATE 1 GM TABLET PO SCH ×2 (20:46→23:34)
[2016-12-02] MEDS ORDERED: (PENDING PHARMACY ID) (Insulin Aspart [Novolog Flexpen] 4 UNIT) SQ SCH (22:00)
[2016-12-02] MEDS ORDERED: (PENDING PHARMACY ID) (Quetiapine Fumarate [Seroquel] 300 MG) PO SCH (22:00)
[2016-12-02] MEDS ORDERED: INSULIN GLARGINE,HUM.REC.ANLOG 1,000 UNIT/10 ML UNIT SUBCUT SCH (22:00)
[2016-12-02] MEDS ORDERED: DEXTROSE 40% GEL 15 GM TUBE PO PRN ×2 (22:04)
[2016-12-02] MEDS ORDERED: INSULIN LISPRO 100 UNIT/ML 3 ML VIAL SUBCUT PRN (22:04)
[2016-12-02] MEDS ORDERED: DEXTROSE 50%-WATER 25 GM/50 ML DISP.SYRIN IV PRN ×2 (22:04)
[2016-12-02] MEDS ORDERED: GLUCAGON,HUMAN RECOMB 1 MG INJ IM PRN (22:04)
[2016-12-02] MEDS: LANSOPRAZOLE 30 MG TAB.RAP.DR PO SCH (22:21)
[2016-12-02] MEDS: METOCLOPRAMIDE HCL 10 MG TABLET PO SCH (22:21)
[2016-12-02] MEDS: QUETIAPINE FUMARATE 100 MG TABLET PO SCH (22:21)
[2016-12-02] MEDS: INSULIN LISPRO 100 UNIT/ML 3 ML VIAL SUBCUT SCH (22:22)
[2016-12-02] MEDS: INSULIN GLARGINE,HUM.REC.ANLOG 300 UNIT/3 ML INSULN.PEN SUBCUT SCH (22:22)
[2016-12-02] MEDS: METOPROLOL TARTRATE 25 MG TABLET PO SCH (22:22)
[2016-12-03] MEDS ORDERED: NORMAL SALINE 1000 ML 500 ML IV ONE ×2 (03:26→18:14)
[2016-12-03] MEDS ORDERED: NORMAL SALINE 1000 ML 1,000 ML IV ONE (04:36)
[2016-12-03] MEDS: INSULIN LISPRO 100 UNIT/ML 3 ML VIAL SUBCUT SCH ×2 (06:29→17:58)
[2016-12-03] MEDS: SUCRALFATE 1 GM TABLET PO SCH ×2 (06:36→11:08)
[2016-12-03] MEDS ORDERED: (PENDING PHARMACY ID) (Quetiapine Fumarate [Seroquel] 200 MG) PO SCH (08:00)
--- NOTE | 2016-12-03 09:13 | EKG REPORT ---
SEVERITY:- ABNORMAL ECG - SINUS RHYTHM VENTRICULAR PREMATURE COMPLEX INFERIOR INFARCT, AGE INDETERMINATE CONSIDER ANTERIOR INFARCT LATERAL LEADS ARE ALSO INVOLVED BORDERLINE PROLONGED QT INTERVAL : Confirmed by: Smita Luque MD 03-Dec-2016 09:13:22
--- NOTE | 2016-12-03 09:14 | EKG REPORT ---
SEVERITY:- ABNORMAL ECG - SINUS RHYTHM PAIRED VENTRICULAR PREMATURE COMPLEXES INFERIOR INFARCT, AGE INDETERMINATE CONSIDER ANTERIOR INFARCT LATERAL LEADS ARE ALSO INVOLVED : Confirmed by: Smita Luque MD 03-Dec-2016 09:13:30
[2016-12-03 09:25] LABS: HEMATOCRIT 37.8 % (36.0-47.0); HGB HCT DIFFERENCE -1.8; MEAN CORPUSCULAR HEMOGLOBIN 26.5 pg (27.0-33.4); MEAN CORPUSCULAR HGB CONC 31.8 g/dL (32.0-36.0); MEAN CORPUSCULAR VOLUME 83 fl (80-97); RED BLOOD COUNT 4.54 10^6/uL (3.72-5.28); RED CELL DISTRIBUTION WIDTH 17.9 % (11.5-14.0); WHITE BLOOD COUNT 11.7 10^3/uL (4.0-10.5)
[2016-12-03 09:51] LABS: ANION GAP 9 (5-19); BLOOD UREA NITROGEN 13 mg/dL (7-20); CALCIUM 9.2 mg/dL (8.4-10.2); CARBON DIOXIDE 28 mmol/L (22-30); CHLORIDE 103 mmol/L (98-107); CREATINE KINASE 37 U/L (30-135); CREATININE RESULT 0.85 mg/dL (0.52-1.25); GLUCOSE 95 mg/dL (75-110); MAGNESIUM 1.9 mg/dL (1.6-2.3); POTASSIUM 3.2 mmol/L (3.6-5.0); SODIUM 140.2 mmol/L (137-145)
[2016-12-03] MEDS ORDERED: PAROXETINE HCL 20 MG TABLET PO SCH (10:00)
[2016-12-03] MEDS ORDERED: MAGNESIUM OXIDE 400 MG TABLET PO SCH (10:00)
[2016-12-03] MEDS ORDERED: FUROSEMIDE 20 MG TABLET PO SCH (10:00)
[2016-12-03] MEDS ORDERED: GLYCERIN (PEDIATRIC) SUPP.RECT PR SCH (10:00)
[2016-12-03] MEDS ORDERED: (PENDING PHARMACY ID) (Potassium Chloride [Klor-Con] 20 MEQ) PO SCH (10:00)
[2016-12-03] MEDS ORDERED: ATORVASTATIN CALCIUM 40 MG TABLET PO SCH (10:00)
[2016-12-03] MEDS ORDERED: POTASSIUM CHLORIDE 10 MEQ TABLET.SA PO SCH (10:00)
[2016-12-03] MEDS: METOCLOPRAMIDE HCL 10 MG TABLET PO SCH ×3 (11:00→22:58)
[2016-12-03] MEDS: LANSOPRAZOLE 30 MG TAB.RAP.DR PO SCH (11:00)
[2016-12-03] MEDS: DOCUSATE SODIUM 100 MG CAPSULE PO SCH ×2 (11:00→17:53)
[2016-12-03] MEDS: QUETIAPINE FUMARATE 100 MG TABLET PO SCH ×2 (11:03→22:58)
[2016-12-03] MEDS ORDERED: ONDANSETRON HCL INJ/PF 4 MG/2 ML SDV IV PRN (11:30)
[2016-12-03] MEDS: METOPROLOL TARTRATE 25 MG TABLET PO SCH (13:01)
--- NOTE | 2016-12-03 18:19 | PDOC PROGRESS REPORT ---
Subjective Progress Note for:: 12/03/16 Subjective:: Pt states that she is feeling better. Nurse that pt was hypotensive after getting blood pressure medication. Physical Exam Vital Signs: Temp Pulse Resp BP Pulse Ox 97.4 F 70 16 115/67 100 12/03/16 12:00 12/03/16 14:00 12/03/16 12:00 12/03/16 12:00 12/03/16 12:00 Intake & Output 12/02/16 12/03/16 12/04/16 06:59 06:59 06:59 Intake Total 1500 Balance 1500 Weight 84.5 kg General appearance: PRESENT: no acute distress, well-developed, well-nourished Head exam: PRESENT: atraumatic, normocephalic Eye exam: PRESENT: conjunctiva pink, EOMI. ABSENT: scleral icterus Ear exam: PRESENT: normal external ear exam Mouth exam: PRESENT: moist, tongue midline Neck exam: ABSENT: carotid bruit, JVD, lymphadenopathy, thyromegaly Respiratory exam: PRESENT: clear to auscultation ailyn. ABSENT: rales, rhonchi, wheezes Cardiovascular exam: PRESENT: RRR. ABSENT: diastolic murmur, rubs, systolic murmur Pulses: PRESENT: normal dorsalis pedis pul Vascular exam: PRESENT: normal capillary refill GI/Abdominal exam: PRESENT: normal bowel sounds, soft. ABSENT: distended, guarding, mass, organolmegaly, rebound, tenderness Rectal exam: PRESENT: deferred Extremities exam: PRESENT: full ROM. ABSENT: calf tenderness, clubbing, pedal edema Neurological exam: PRESENT: alert, awake, oriented to person, oriented to place , oriented to time, oriented to situation, CN II-XII grossly intact. ABSENT: motor sensory deficit Psychiatric exam: PRESENT: appropriate affect, normal mood. ABSENT: homicidal ideation, suicidal ideation Skin exam: PRESENT: dry, intact, warm. ABSENT: cyanosis, rash Results Laboratory Results: 12/03/16 08:37 12/03/16 08:37 12/03/16 12/03/16 08:37 08:37 WBC 11.7 H RBC 4.54 Hgb 12.0 Hct 37.8 MCV 83 MCH 26.5 L MCHC 31.8 L RDW 17.9 H Plt Count 203 Sodium 140.2 Potassium 3.2 L Chloride 103 Carbon Dioxide 28 Anion Gap 9 BUN 13 Creatinine 0.85 Est GFR ( Amer) > 60 Est GFR (Non-Af Amer) > 60 Glucose 95 Calcium 9.2 Magnesium 1.9 12/02/16 12/02/16 12/03/16 18:48 18:48 00:58 Creatine Kinase 36 30 Troponin I 0.038 12/03/16 12/03/16 12/03/16 00:58 08:37 08:37 Creatine Kinase 37 Troponin I 0.034 0.036 12/03/16 13:46 Creatine Kinase 38 Troponin I Impressions: Chest X-Ray 12/02/16 09:42 IMPRESSION: Cardiomegaly without failure. Abdomen/Pelvis CT 12/02/16 13:13 IMPRESSION: Trace free fluid in the right subphrenic and pelvic regions similar compared to 11/23/2016. No CT evidence of bowel obstruction or urinary outflow obstruction. Post cholecystectomy No CT evidence of acute appendicitis Assessment & Plan - Diagnosis (1) Hypotension Qualifiers: Hypotension type: unspecified hypotension type Qualified Code(s): I95.9 - Hypotension, unspecified Is this a current diagnosis for this admission?: Yes Plan: Will hold lasix and metoprolol. Will give NS bolus of 500ml. (2) Abdominal pain, generalized Is this a current diagnosis for this admission?: Yes Plan: Pt had bm yesterday. Will continue stool softener. (3) Chest pain Qualifiers: Chest pain type: unspecified Qualified Code(s): R07.9 - Chest pain, unspecified Is this a current diagnosis for this admission?: Yes Plan: Troponins neg. Pt with no complaint of chest pain. (4) Constipation Qualifiers: Constipation type: unspecified constipation type Qualified Code(s): K59.00 - Constipation, unspecified Is this a current diagnosis for this admission?: Yes Plan: Pt had BM will continue stool softener (5) Leukocytosis Is this a current diagnosis for this admission?: Yes Plan: Secondary stress response: Will continue to monitor. (6) Gastroparesis Is this a current diagnosis for this admission?: Yes Plan: Will continue to monitor. (7) Hypokalemia Is this a current diagnosis for this admission?: Yes Plan: Will give Potassium replacement. Will check BMP in am (8) DVT prophylaxis Is this a current diagnosis for this admission?: Yes Plan: SCD - Time Time Spent with patient: 15-24 minutes Anticipated discharge: Home
[2016-12-03] MEDS ORDERED: POTASSIUM CHLORIDE 10 MEQ TABLET.SA PO ONE (19:00)
[2016-12-03] MEDS: INSULIN GLARGINE,HUM.REC.ANLOG 300 UNIT/3 ML INSULN.PEN SUBCUT SCH (23:07)
[2016-12-04] MEDS ORDERED: LANSOPRAZOLE 30 MG TAB.RAP.DR PO SCH (06:00)
[2016-12-04] MEDS ORDERED: INSULIN LISPRO 100 UNIT/ML 3 ML VIAL SUBCUT SCH (08:00)
[2016-12-04 08:04] VITALS: BP 120/72
[2016-12-04] MEDS: METOCLOPRAMIDE HCL 10 MG TABLET PO SCH (08:19)
[2016-12-04] MEDS: QUETIAPINE FUMARATE 100 MG TABLET PO SCH (08:23)
--- NOTE | 2016-12-04 10:38 | PDOC PROGRESS REPORT ---
Subjective Progress Note for:: 12/04/16 Subjective:: Patient was upset this morning. Patient stated that she wanted be discharged from the hospital immediately. Patient states that she was upset about how she has been treated by the nursing staff. Explained to patient that I could discharge her this morning however patient stated that she wanted to leave right now. Physical Exam Vital Signs: Temp Pulse Resp BP Pulse Ox 98.0 F 81 18 120/72 97 12/04/16 07:17 12/04/16 07:17 12/04/16 07:17 12/04/16 07:17 12/04/16 07:17 Intake & Output 12/03/16 12/04/16 12/05/16 06:59 06:59 06:59 Intake Total 1500 1350 Balance 1500 1350 Weight 84.5 kg 87.2 kg General appearance: PRESENT: disheveled, well-developed, well-nourished Head exam: PRESENT: atraumatic, normocephalic Eye exam: PRESENT: conjunctiva pink, EOMI. ABSENT: scleral icterus Ear exam: PRESENT: normal external ear exam Mouth exam: PRESENT: moist, tongue midline Neck exam: ABSENT: carotid bruit, JVD, lymphadenopathy, thyromegaly Respiratory exam: PRESENT: clear to auscultation ailyn. ABSENT: rales, rhonchi, wheezes Cardiovascular exam: PRESENT: RRR. ABSENT: diastolic murmur, rubs, systolic murmur Pulses: PRESENT: normal dorsalis pedis pul Vascular exam: PRESENT: normal capillary refill GI/Abdominal exam: PRESENT: normal bowel sounds, soft. ABSENT: distended, guarding, mass, organolmegaly, rebound, tenderness Rectal exam: PRESENT: deferred Extremities exam: PRESENT: full ROM. ABSENT: calf tenderness, clubbing, pedal edema Neurological exam: PRESENT: alert, awake, oriented to person, oriented to place , oriented to time, oriented to situation, CN II-XII grossly intact. ABSENT: motor sensory deficit Psychiatric exam: PRESENT: agitated Results Laboratory Results: 12/03/16 08:37 12/03/16 08:37 12/02/16 12/02/16 12/03/16 18:48 18:48 00:58 Creatine Kinase 36 30 Troponin I 0.038 12/03/16 12/03/16 12/03/16 00:58 08:37 08:37 Creatine Kinase 37 Troponin I 0.034 0.036 12/03/16 12/03/16 12/03/16 13:46 19:30 21:00 Creatine Kinase 38 Cancelled 26 L Troponin I Impressions: Chest X-Ray 12/02/16 09:42 IMPRESSION: Cardiomegaly without failure. Abdomen/Pelvis CT 12/02/16 13:13 IMPRESSION: Trace free fluid in the right subphrenic and pelvic regions similar compared to 11/23/2016. No CT evidence of bowel obstruction or urinary outflow obstruction. Post cholecystectomy No CT evidence of acute appendicitis Assessment & Plan - Diagnosis (1) Hypotension Qualifiers: Hypotension type: unspecified hypotension type Qualified Code(s): I95.9 - Hypotension, unspecified Is this a current diagnosis for this admission?: Yes Plan: Secondary to medication. Patient's metoprolol as well as lisinopril have been held. (2) Abdominal pain, generalized Is this a current diagnosis for this admission?: Yes Plan: Resolved (3) Chest pain Qualifiers: Chest pain type: unspecified Qualified Code(s): R07.9 - Chest pain, unspecified Is this a current diagnosis for this admission?: Yes Plan: Troponins neg. Pt with no complaint of chest pain. (4) Constipation Qualifiers: Constipation type: unspecified constipation type Qualified Code(s): K59.00 - Constipation, unspecified Is this a current diagnosis for this admission?: Yes Plan: Patient encouraged to continue to use stool softeners. (5) Leukocytosis Is this a current diagnosis for this admission?: Yes Plan: Secondary stress response: Will continue to monitor. (6) Gastroparesis Is this a current diagnosis for this admission?: Yes Plan: Will continue to monitor. (7) Hypokalemia Is this a current diagnosis for this admission?: Yes Plan: Patient demanding to leave prior to potassium replacement (8) DVT prophylaxis Is this a current diagnosis for this admission?: Yes Plan: SCD - Time Time Spent with patient: 15-24 minutes - Pt threatening to leave today. Patient states that she wants to go now. Patient states that she will most likely leave AMA.
--- NOTE | 2016-12-04 10:42 | PDOC DISCHARGE SUMMARY ---
General - Admit/Disc Date/PCP Admission Date/Primary Care Provider: 12/02/16 14:08 TREVON SKAGGS PA-C Discharge Date: 12/04/16 - Patient left AMA - Discharge Diagnosis (1) Hypotension Is this a current diagnosis for this admission?: Yes Summary: Secondary to patient's medications. Patient left AMA (2) Abdominal pain, generalized Is this a current diagnosis for this admission?: Yes Summary: Secondary to constipation. Patient had bowel movement while here at the hospital. Patient encouraged to continue to use stool softeners. Patient left AMA (3) Chest pain Is this a current diagnosis for this admission?: Yes Summary: Troponins were negative. Patient with no acute further complaint of chest pain. Patient left AMA (4) Constipation Is this a current diagnosis for this admission?: Yes Summary: Patient was given a soapsuds enema during hospitalization which resulted in a bowel movement. Patient was encouraged to continue use stool softeners. Patient left AGAINST MEDICAL ADVICE. (5) Leukocytosis Is this a current diagnosis for this admission?: Yes Summary: Secondary to stress response. (6) Gastroparesis Is this a current diagnosis for this admission?: Yes Summary: Recommend patient follow with GI as outpatient. Patient left AGAINST MEDICAL ADVICE. (7) Hypokalemia Is this a current diagnosis for this admission?: Yes Summary: Plan was to order for p.o. potassium however patient left AGAINST MEDICAL ADVICE. - Additional Information Resuscitation Status: Full Code Home Medications: Albuterol Sulfate [Proair HFA] 2 puff IH Q4HP PRN 12/03/16 Aspirin [Aspirin 325 mg Tablet] 325 mg PO DAILY 12/03/16 Atorvastatin Calcium [Lipitor 40 mg Tablet] 40 mg PO QHS 12/03/16 Clonazepam [Klonopin] 0.5 mg PO BIDP PRN 12/03/16 Docusate Sodium [Colace 100 mg Capsule] 100 mg PO HSP PRN 12/03/16 Furosemide [Lasix 20 mg Tablet] 20 mg PO DAILY 12/03/16 Insulin Aspart [Novolog Flexpen] 4 unit SUBCUT AC 12/03/16 Insulin Glargine,Hum.rec.anlog [Lantus Insulin 100 Unit/1 ml 10 ml] 25 unit SUBCUT QHS 12/03/16 Metoprolol Tartrate [Lopressor 25 mg Tablet] 12.5 mg PO Q12 10/05/17 Pantoprazole Sodium [Protonix] 40 mg PO Q48H 12/03/16 Paroxetine HCl [Paxil] 40 mg PO DAILY 12/03/16 Potassium Chloride [Klor-Con M20] 20 meq PO DAILY 12/03/16 Quetiapine Fumarate [Seroquel] 200 mg PO DAILY 12/03/16 Quetiapine Fumarate [Seroquel] 300 mg PO QHS 12/03/16 History of Present Illness History of Present Illness: CHARLEY SHERMAN is a 56 year old female presents to the hospital with complaint of abdominal pain. ER also reports the patient later complained of chest pain. Patient reports that she has not had a bowel movement in the last 3 days. Patient states that sometimes she goes 10-12 days without having a bowel movement. Patient states that she does try to use stool softeners which occasionally help. Patient during my encounter denied any chest pain however states that she was having abdominal pain. Patient also states that she has been vomiting. Patient states that sometimes she is not able to eat very much due to her having to vomit. Reports that she recently had four-vessel CABG. Hospital Course Hospital Course: She was admitted to the hospital where she she was evaluated for abdominal pain and complaint of chest pain that she may to emergency department. Patient has CT of the abdomen that demonstrated no acute process. Patient was found to be constipated and therefore was given a soapsuds enema. Patient had a bowel movement during hospitalization and was continued on stool softeners. Patient was found to have hypokalemia and therefore was given potassium replacement. Patient required additional potassium replacement on day of AMA however order was not able to be entered in time to give patient replacement. Patient was noted to be hypotensive secondary to medication therefore patient's metoprolol and Lasix were held. Patient was demanded to be discharged immediately told patient that it would take at least an hour to get her discharge patient left AMA. Patient was told to follow-up with her PCP if she leaves AMA. Physical Exam Vital Signs: Temp Pulse Resp BP Pulse Ox 98.0 F 81 18 120/72 97 12/04/16 07:17 12/04/16 07:17 12/04/16 07:17 12/04/16 07:17 12/04/16 07:17 Intake & Output 12/03/16 12/04/16 12/05/16 06:59 06:59 06:59 Intake Total 1500 1350 Balance 1500 1350 Weight 84.5 kg 87.2 kg General appearance: PRESENT: no acute distress, disheveled, well-developed, well -nourished Head exam: PRESENT: atraumatic, normocephalic Eye exam: PRESENT: conjunctiva pink, EOMI. ABSENT: scleral icterus Ear exam: PRESENT: normal external ear exam Mouth exam: PRESENT: moist, tongue midline Neck exam: ABSENT: carotid bruit, JVD, lymphadenopathy, thyromegaly Respiratory exam: PRESENT: clear to auscultation ailyn. ABSENT: rales, rhonchi, wheezes Cardiovascular exam: PRESENT: RRR. ABSENT: diastolic murmur, rubs, systolic murmur Pulses: PRESENT: normal dorsalis pedis pul Vascular exam: PRESENT: normal capillary refill GI/Abdominal exam: PRESENT: normal bowel sounds, soft. ABSENT: distended, guarding, mass, organolmegaly, rebound, tenderness Rectal exam: PRESENT: deferred Extremities exam: PRESENT: full ROM. ABSENT: calf tenderness, clubbing, pedal edema Neurological exam: PRESENT: alert, awake, oriented to person, oriented to place , oriented to time, oriented to situation, CN II-XII grossly intact. ABSENT: motor sensory deficit Psychiatric exam: PRESENT: agitated Skin exam: PRESENT: dry, intact, warm. ABSENT: cyanosis, rash Results Laboratory Results: 12/03/16 08:37 12/03/16 08:37 12/02/16 12/02/16 12/03/16 18:48 18:48 00:58 Creatine Kinase 36 30 Troponin I 0.038 12/03/16 12/03/16 12/03/16 00:58 08:37 08:37 Creatine Kinase 37 Troponin I 0.034 0.036 12/03/16 12/03/16 12/03/16 13:46 19:30 21:00 Creatine Kinase 38 Cancelled 26 L Troponin I Impressions: Chest X-Ray 12/02/16 09:42 IMPRESSION: Cardiomegaly without failure. Abdomen/Pelvis CT 12/02/16 13:13 IMPRESSION: Trace free fluid in the right subphrenic and pelvic regions similar compared to 11/23/2016. No CT evidence of bowel obstruction or urinary outflow obstruction. Post cholecystectomy No CT evidence of acute appendicitis
== END 2016-12-04 09:41 | disposition left against medical advice (07) ==
LOC: ER 09:13 → EH 14:08 → INTOOBSV 14:08 → 4S 16:59
PROVIDERS: ADMIT Internal Medicine; ATTEND Internal Medicine
DX: K59.00 Constipation, unspecified (principal); R10.84 Generalized abdominal pain; R07.9 Chest pain, unspecified; I95.2 Hypotension due to drugs; T50.1X5A Adverse effect of loop [high-ceiling] diuretics, initial encounter; T44.7X5A Adverse effect of beta-adrenoreceptor antagonists, initial encounter; D72.828 Other elevated white blood cell count; E11.43 Type 2 diabetes mellitus with diabetic autonomic (poly)neuropathy; K31.84 Gastroparesis; E87.6 Hypokalemia; Z53.21 Procedure and treatment not carried out due to patient leaving prior to being seen by health care provider; I25.10 Atherosclerotic heart disease of native coronary artery without angina pectoris; F17.210 Nicotine dependence, cigarettes, uncomplicated; F31.9 Bipolar disorder, unspecified; F20.9 Schizophrenia, unspecified; I25.2 Old myocardial infarction; Z79.899 Other long term (current) drug therapy; Z79.82 Long term (current) use of aspirin; Z79.4 Long term (current) use of insulin; Z95.1 Presence of aortocoronary bypass graft; Z90.49 Acquired absence of other specified parts of digestive tract; Z82.49 Family history of ischemic heart disease and other diseases of the circulatory system; Z87.442 Personal history of urinary calculi
CPT/HCPCS: 93005; 99285; 36415 ×2; 82962 ×3; 82550 ×2; 83735; 85025; 85027; 80048 ×2; 81001; 84484 ×2; 71010; 74176; 93010; J3490 ×19; S0119; J3010; J1815 ×2; J2270; J7030

== ENCOUNTER 2016-12-06 16:20 | Emergency (ER) | payer MEDICAID ==
--- NOTE | 2016-12-06 17:18 | ER Document Report ---
ED GI/ <JOANNA LOWE - Last Filed: 12/06/16 21:08> - General Mode of Arrival: Medic Information source: Patient TRAVEL OUTSIDE OF THE [place] IN LAST 30 DAYS: No <KEL CHRISTY - Last Filed: 12/06/16 22:15> - General Chief Complaint: Abdominal Pain Stated Complaint: ABDOMINAL PAIN Time Seen by Provider: 12/06/16 17:18 Notes: 56 yo female post menopausal, CAD, DM2 discharged from [facility] this am with dx "blockage of the bowels", laxatives have not worked, thin sliver of BM 3pm this afternoon. Called EMS today since her brother is not at her house due to abdominal pain from epigastrum to pubis and bilious vomiting. She was admitted to [facility] 12-02 and d/c 12-04 with abd pain, constipation-Pt left AMA. (KEL CHRISTY) - Related Data Allergies/Adverse Reactions: haloperidol [From Haldol] Allergy (Verified 12/06/16 16:29) haloperidol lactate [From Haldol] Allergy (Verified 12/06/16 16:29) Past Medical History - General Information source: Patient - Social History Smoking Status: Current Some Day Smoker Frequency of alcohol use: None Drug Abuse: None Lives with: Alone - son out of state Family History: Reviewed & Not Pertinent, CAD - Extensive heart disease in mother and brother with brother dying from complications of cardiac stent placement - Past Medical History Cardiac Medical History: Reports: Hx Coronary Artery Disease, Hx Heart Attack - x2, Hx Hypercholesterolemia, Hx Hypertension Pulmonary Medical History: Reports: Hx Bronchitis, Hx COPD Endocrine Medical History: Reports: Hx Diabetes Mellitus Type 2 Renal/ Medical History: Reports: Hx Kidney Stones. Denies: Hx Peritoneal Dialysis GI Medical History: Reports: Hx Gastroesophageal Reflux Disease Psychiatric Medical History: Reports: Hx Bipolar Disorder, Hx Depression, Hx Schizophrenia Past Surgical History: Reports: Hx Cardiac Catheterization, Hx Cardiac Surgery - stents, CABG 09/2016, Hx Cholecystectomy, Hx Coronary Stent - x2 - Immunizations Hx Diphtheria, Pertussis, Tetanus Vaccination: Yes <KEL CHRISTY - Last Filed: 12/06/16 22:15> Review of Systems - Review of Systems Constitutional: No symptoms reported EENT: No symptoms reported Cardiovascular: No symptoms reported Respiratory: No symptoms reported Gastrointestinal: See HPI Genitourinary: No symptoms reported Female Genitourinary: No symptoms reported Musculoskeletal: No symptoms reported Skin: No symptoms reported Hematologic/Lymphatic: No symptoms reported Neurological/Psychological: No symptoms reported <KEL CHRISTY - Last Filed: 12/06/16 22:15> Physical Exam <JOANNA LOWE - Last Filed: 12/06/16 21:08> - Vital signs Interpretation: Normal - General General appearance: Alert, Other - looks sick, actively vomiting green - HEENT Head: Normocephalic, Atraumatic Eyes: Normal Pupils: PERRL Neck: Supple - Respiratory Respiratory status: No respiratory distress Chest status: Nontender Breath sounds: Normal Chest palpation: Normal - Cardiovascular Rhythm: Regular Heart sounds: Normal auscultation Murmur: No - Abdominal Inspection: Normal Distension: No distension. No: Distended, Tympanitic Bowel sounds: Normal Tenderness: Nontender. No: Tender Organomegaly: No organomegaly - Rectal Hemorrhoids: None - Back Back: Normal, Nontender. No: CVA tenderness - Extremities General upper extremity: Normal inspection, Nontender, Normal color, Normal ROM , Normal temperature General lower extremity: Normal inspection, Nontender, Normal color, Normal ROM , Normal temperature, Normal weight bearing. No: Jamie's sign - Neurological Neuro grossly intact: Yes Cognition: Normal Orientation: AAOx4 [place] Coma Scale Eye Opening: Spontaneous [place] Coma Scale Verbal: Oriented [place] Coma Scale Motor: Obeys Commands [place] Coma Scale Total: 15 Speech: Normal Motor strength normal: LUE, RUE, LLE, RLE Sensory: Normal - Psychological Associated symptoms: Normal affect, Normal mood - Skin Skin Temperature: Warm Skin Moisture: Dry Skin Color: Normal, Ecchymosis - previous IV sticks, left medial upper thigh, no hematoma (pt states it was femoral stick at [facility] or [facility]) <KEL CHRISTY - Last Filed: 12/06/16 22:15> - Vital signs Vitals: Pulse Resp BP Pulse Ox 74 16 140/84 H 97 12/06/16 16:28 12/06/16 16:28 12/06/16 16:28 12/06/16 16:28 - Rectal Notes: no stool in rectum (KEL CHRISTY) Course - Laboratory Result Diagrams: 12/06/16 17:55 12/06/16 17:55 <FRIANT,JOANNA - Last Filed: 12/06/16 21:08> - Laboratory Result Diagrams: 12/06/16 17:55 12/06/16 17:55 <KEL CHRISTY - Last Filed: 12/06/16 22:15> - Re-evaluation Re-evalutation: 12/06/16 18:08 call to júnior moore to speak with the physician that d/c'd the pt this am to get history. 12/06/16 18:26 Spoke with nurse practitioner Jackie Lunsford the patient did not receive a IV contrast CT they did an acute abdomen which did not show any obstruction. She was given aspirin, Lipitor, heparin, Plavix, Lopressor, Protonix. Her glucose was 94 this morning without insulin. 12/06/16 18:58 glucose 179, no insulin today. potassium 3.o 40meq ordered po. 12/06/16 19:[address] chambers, no insulin now, if she goes home, take the lantus at home. 12/06/16 19:23 care transferred to Joanna Lowe PA, pending AAS, abd. soft and non tender still. No more nausea or vomiting (KEL CHRISTY) - Vital Signs Vital signs: Temp Pulse Resp BP Pulse Ox 74 16 140/84 H 97 12/06/16 16:28 12/06/16 16:28 12/06/16 16:28 12/06/16 16:28 - Laboratory Laboratory results interpreted by me: 12/06/16 12/06/16 12/06/16 17:55 17:55 17:55 Hgb 10.6 L Hct 33.0 L MCH 26.4 L RDW 18.5 H PT 16.0 H Sodium 147.3 H Potassium 3.0 L* BUN 6 L Glucose 179 H Lactic Acid Total Bilirubin 1.6 H Direct Bilirubin 0.9 H Urine Urobilinogen 12/06/16 12/06/16 18:20 18:40 Hgb Hct MCH RDW PT Sodium Potassium BUN Glucose Lactic Acid 2.4 H Total Bilirubin Direct Bilirubin Urine Urobilinogen 2.0 H Discharge <JOANNA LOWE - Last Filed: 12/06/16 21:08> <KEL CHRISTY - Last Filed: 12/06/16 22:15> - Discharge Clinical Impression: Abdominal pain Qualifiers: Abdominal location: generalized Qualified Code(s): R10.84 - Generalized abdominal pain Vomiting Qualifiers: Vomiting type: unspecified Vomiting Intractability: non-intractable Nausea presence: unspecified Qualified Code(s): R11.10 - Vomiting, unspecified Condition: Stable Disposition: HOME, SELF-CARE Additional Instructions: Your x-ray does show some stool but no obstruction or concerning abnormalities. Your workup does not show any concerning findings. Please take the nausea medication as directed, start with fluids and bland diet and progress, follow- up with your primary care this week as planned, have her potassium rechecked because it was low today. Please return to the emergency department if he develop any concerning symptoms including returned abdominal pain, uncontrolled vomiting, fever, bloody bowel movements, or any other concerning symptoms. Prescriptions: Docusate Sodium [Colace 100 mg Capsule] 100 mg PO DAILY #30 capsule Metoclopramide HCl [Reglan] 5 mg PO ASDIR PRN #30 tablet PRN Reason:
[2016-12-06] MEDS ORDERED: ONDANSETRON HCL INJ/PF 4 MG/2 ML SDV IV ONE (17:29)
[2016-12-06] MEDS ORDERED: NORMAL SALINE 1000 ML 1,000 ML IV ONE ×2 (17:29→17:58)
[2016-12-06] MEDS ORDERED: METOCLOPRAMIDE HCL INJ/PF 10 MG/2 ML SDV IV ONE (17:29)
[2016-12-06 18:25] LABS: ABSOLUTE BASOPHILS # (AUTO) 0.1 10^3/uL (0.0-0.2); ABSOLUTE EOSINOPHILS # (AUTO) 0.1 10^3/uL (0.0-0.6); ABSOLUTE LYMPHOCYTES (AUTO) 3.1 10^3/uL (0.5-4.7); ABSOLUTE MONOCYTES (AUTO) 0.5 10^3/uL (0.1-1.4); ABSOLUTE NEUT (AUTO) 4.1 10^3/uL (1.7-8.2); BASOPHILS % (AUTO) 1.1 % (0-2); EOSINOPHILS % (AUTO) 1.2 % (0-6); HEMOGLOBIN 10.6 g/dL (12.0-15.5); HGB HCT DIFFERENCE -1.2; LYMPHOCYTES % (AUTO) 39.6 % (13-45); MEAN CORPUSCULAR HEMOGLOBIN 26.4 pg (27.0-33.4); MEAN CORPUSCULAR HGB CONC 32.1 g/dL (32.0-36.0); MEAN CORPUSCULAR VOLUME 82 fl (80-97); MONOCYTES % (AUTO) 5.8 % (3-13); RED BLOOD COUNT 4.01 10^6/uL (3.72-5.28); RED CELL DISTRIBUTION WIDTH 18.5 % (11.5-14.0); SEGMENTED NEUTROPHILS % (AUTO) 52.3 % (42-78); WHITE BLOOD COUNT 7.9 10^3/uL (4.0-10.5)
[2016-12-06 18:35] LABS: ALANINE AMINOTRANSFERASE 19 U/L (9-52); ALBUMIN 3.6 g/dL (3.5-5.0); ALKALINE PHOSPHATASE 110 U/L (38-126); ANION GAP 15 (5-19); ASPARTATE AMINO TRANSFERASE 29 U/L (14-36); BILIRUBIN,DIRECT 0.9 mg/dL (0.0-0.4); BILIRUBIN,TOTAL 1.6 mg/dL (0.2-1.3); BLOOD UREA NITROGEN 6 mg/dL (7-20); CALCIUM 9.2 mg/dL (8.4-10.2); CARBON DIOXIDE 26 mmol/L (22-30); CHLORIDE 106 mmol/L (98-107); CREATININE RESULT 0.95 mg/dL (0.52-1.25); GLUCOSE 179 mg/dL (75-110); LIPASE 88.6 U/L (23-300); SODIUM 147.3 mmol/L (137-145); TOTAL PROTEIN 7.4 g/dL (6.3-8.2)
[2016-12-06 18:41] LABS: PARTIAL THROMBOPLASTIN TIME 29.2 SEC (23.5-35.8)
[2016-12-06 18:43] LABS: APPEARANCE,URINE CLEAR; BILIRUBIN,URINE NEGATIVE (NEGATIVE); GLUCOSE, URINE NEGATIVE (NEGATIVE); KETONES,URINE NEGATIVE (NEGATIVE); LEUKOCYTE ESTERASE,URINE NEGATIVE (NEGATIVE); NITRITE,URINE NEGATIVE (NEGATIVE); PROTEIN,URINE NEGATIVE (NEGATIVE); URINE SPECIFIC GRAVITY 1.006
[2016-12-06] MEDS ORDERED: POTASSIUM CHLORIDE 20 MEQ/15 ML UDCUP PO ONE (18:52)
--- NOTE | 2016-12-06 20:19 | RADIOLOGY REPORT (SQ) ---
EXAM DESCRIPTION: ACUTE ABDOMEN SERIES COMPLETED DATE/TIME: 12/06/2016 7:56 pm REASON FOR STUDY: bilious vomiting, abd pain COMPARISON: CT from 4 days ago. Single-view chest 12/02/2016. NUMBER OF VIEWS: Three views. TECHNIQUE: Frontal chest, supine abdomen and upright/decubitus abdomen radiographic images acquired. LIMITATIONS: None. FINDINGS: CHEST: Stable chest. Basilar scar. Stable cardiomediastinal silhouette post CABG. FREE AIR: None. No abnormal gas collections. BOWEL GAS PATTERN: Nonobstructive pattern. No dilated loops or air fluid levels. CALCIFICATIONS: No suspicious calcifications. HARDWARE: None in the abdomen. SOFT TISSUES: No gross mass or suggestion of organomegaly. BONES: No acute fracture. No worrisome bone lesions. OTHER: No other significant finding. IMPRESSION: NO RADIOGRAPHIC EVIDENCE FOR ACUTE ABDOMINAL DISEASE. TECHNICAL DOCUMENTATION: JOB ID: [id number] [employer]- All Rights Reserved
[2016-12-06] MEDS ORDERED: POTASSIUM CHLORIDE 10 MEQ TABLET.SA PO ONE (21:09)
[2016-12-06] MEDS ORDERED: ONDANSETRON ODT 4 MG TAB (6 TAB/DSPK) PO PRN (21:09)
[2016-12-06 22:23] VITALS: BP 125/84
== END 2016-12-06 21:55 | disposition home or self-care (01) ==
LOC: ER 16:20
DX: R10.84 Generalized abdominal pain (principal); R11.10 Vomiting, unspecified; K59.00 Constipation, unspecified; F17.200 Nicotine dependence, unspecified, uncomplicated; I25.10 Atherosclerotic heart disease of native coronary artery without angina pectoris; E78.00 Pure hypercholesterolemia, unspecified; I10 Essential (primary) hypertension; J44.9 Chronic obstructive pulmonary disease, unspecified; E11.9 Type 2 diabetes mellitus without complications; K21.9 Gastro-esophageal reflux disease without esophagitis; Z87.442 Personal history of urinary calculi; Z95.1 Presence of aortocoronary bypass graft; Z90.49 Acquired absence of other specified parts of digestive tract; I25.2 Old myocardial infarction; Z79.4 Long term (current) use of insulin
CPT/HCPCS: 96361; 99284; 96374; 96375; 36415; 87040; 83690; 83735; 85025; 85610; 85730; 80053; 81001; 83605; 74022; J2765; J3490; J2405; J7030

== ENCOUNTER 2016-12-07 15:31 | Emergency (ER) | payer MEDICAID ==
[2016-12-07] MEDS ORDERED: NORMAL SALINE 500 ML IV ONE (15:53)
--- NOTE | 2016-12-07 15:54 | ER Document Report ---
ED General - General Chief Complaint: Abdominal Pain Stated Complaint: ABDOMINAL PAIN Time Seen by Provider: 12/07/16 15:39 Mode of Arrival: Medic Information source: Patient, Emergency Med Personnel Notes: 56-year-old female presents less than 24 hours after recent visit from the same. Complaining of nausea and abdominal pain. Given medications but did not get them filled. Did not take anything. EMS went to the house and open the bottle of medication and gave her some Zofran. Patient states she felt better. Shortly after EMS left she called them again and said that she was not feeling good and wanted them to come back out. TRAVEL OUTSIDE OF THE [place] IN LAST 30 DAYS: No - Related Data Allergies/Adverse Reactions: haloperidol [From Haldol] Allergy (Verified 12/06/16 16:29) haloperidol lactate [From Haldol] Allergy (Verified 12/06/16 16:29) Past Medical History - General Information source: Patient - Social History Smoking Status: Current Every Day Smoker Family History: Reviewed & Not Pertinent, CAD - Extensive heart disease in mother and brother with brother dying from complications of cardiac stent placement - Past Medical History Cardiac Medical History: Reports: Hx Coronary Artery Disease, Hx Heart Attack - x2, Hx Hypercholesterolemia, Hx Hypertension Pulmonary Medical History: Reports: Hx Bronchitis, Hx COPD Endocrine Medical History: Reports: Hx Diabetes Mellitus Type 2 Renal/ Medical History: Reports: Hx Kidney Stones. Denies: Hx Peritoneal Dialysis GI Medical History: Reports: Hx Gastroesophageal Reflux Disease Psychiatric Medical History: Reports: Hx Bipolar Disorder, Hx Depression, Hx Schizophrenia Past Surgical History: Reports: Hx Cardiac Catheterization, Hx Cardiac Surgery - stents, CABG 09/2016, Hx Cholecystectomy, Hx Coronary Stent - x2 - Immunizations Hx Diphtheria, Pertussis, Tetanus Vaccination: Yes Review of Systems - Review of Systems Constitutional: No symptoms reported EENT: No symptoms reported Cardiovascular: No symptoms reported Respiratory: No symptoms reported Gastrointestinal: No symptoms reported, Abdominal pain, Nausea, Vomiting Genitourinary: No symptoms reported Female Genitourinary: No symptoms reported Musculoskeletal: No symptoms reported Skin: No symptoms reported Hematologic/Lymphatic: No symptoms reported Neurological/Psychological: No symptoms reported Physical Exam - Vital signs Vitals: Resp 14 12/07/16 15:42 Interpretation: Normal - General General appearance: Appears well, Alert - HEENT Head: Normocephalic, Atraumatic Eyes: Normal Pupils: PERRL - Respiratory Respiratory status: No respiratory distress Chest status: Nontender Breath sounds: Normal Chest palpation: Normal - Cardiovascular Rhythm: Regular Heart sounds: Normal auscultation Murmur: No - Abdominal Inspection: Normal Distension: No distension Bowel sounds: Normal Tenderness: Nontender Organomegaly: No organomegaly - Back Back: Normal, Nontender - Extremities General upper extremity: Normal inspection, Nontender, Normal color, Normal ROM , Normal temperature General lower extremity: Normal inspection, Nontender, Normal color, Normal ROM , Normal temperature, Normal weight bearing. No: Jamie's sign - Neurological Neuro grossly intact: Yes Cognition: Normal Orientation: AAOx4 [place] Coma Scale Eye Opening: Spontaneous Darron Coma Scale Verbal: Oriented Darron Coma Scale Motor: Obeys Commands Darron Coma Scale Total: 15 Speech: Normal Motor strength normal: LUE, RUE, LLE, RLE Sensory: Normal - Psychological Associated symptoms: Normal affect, Normal mood - Skin Skin Temperature: Warm Skin Moisture: Dry Skin Color: Normal Course - Re-evaluation Re-evalutation: 12/07/16 17:21 Patient was just seen and evaluated last night. Repeat labs ordered. EKG unchanged. Find nothing further at this time. Of note, patient is asking for pain medications states "all the doctors give me pain medicine why is not this giving me anything". Uncomfortable giving her any narcotic pain medication with a history of chronic constipation and abdominal pain. Will give her some Toradol. Anticipate discharge. 12/07/16 17:29 Patient has had no cardiac issues while in the emergency department. Nothing at this time it appears acute. Medical screening exam has been performed I am comfortable discharging at this time - Vital Signs Vital signs: Temp Pulse Resp BP Pulse Ox 18 125/80 95 12/07/16 16:01 12/07/16 16:01 12/07/16 16:01 - Laboratory Result Diagrams: 12/07/16 16:40 12/07/16 16:40 Laboratory results interpreted by me: 12/07/16 12/07/16 16:40 16:40 Hgb 10.9 L Hct 33.5 L MCH 26.6 L RDW 18.5 H Potassium 3.2 L Est GFR (Non-Af Amer) 57 L Glucose 165 H Total Bilirubin 1.5 H Direct Bilirubin 0.8 H - Diagnostic Test Radiology reviewed: Reports reviewed - EKG Interpretation by Me EKG shows normal: Sinus rhythm, [place], Intervals, QRS Complexes Rhythm: PVC's Discharge - Discharge Clinical Impression: Chronic abdominal pain Condition: Good Disposition: HOME, SELF-CARE Instructions: Abdominal Pain ([facility]) Forms: Smoking Cessation Education
[2016-12-07 16:54] LABS: ABSOLUTE BASOPHILS # (AUTO) 0.1 10^3/uL (0.0-0.2); ABSOLUTE EOSINOPHILS # (AUTO) 0.1 10^3/uL (0.0-0.6); ABSOLUTE LYMPHOCYTES (AUTO) 3.5 10^3/uL (0.5-4.7); ABSOLUTE MONOCYTES (AUTO) 0.7 10^3/uL (0.1-1.4); ABSOLUTE NEUT (AUTO) 4.4 10^3/uL (1.7-8.2); BASOPHILS % (AUTO) 0.8 % (0-2); EOSINOPHILS % (AUTO) 1.2 % (0-6); HEMATOCRIT 33.5 % (36.0-47.0); HEMOGLOBIN 10.9 g/dL (12.0-15.5); HGB HCT DIFFERENCE -0.8; LYMPHOCYTES % (AUTO) 39.8 % (13-45); MEAN CORPUSCULAR HEMOGLOBIN 26.6 pg (27.0-33.4); MEAN CORPUSCULAR HGB CONC 32.5 g/dL (32.0-36.0); MEAN CORPUSCULAR VOLUME 82 fl (80-97); MONOCYTES % (AUTO) 7.6 % (3-13); RED BLOOD COUNT 4.09 10^6/uL (3.72-5.28); RED CELL DISTRIBUTION WIDTH 18.5 % (11.5-14.0); SEGMENTED NEUTROPHILS % (AUTO) 50.6 % (42-78); WHITE BLOOD COUNT 8.8 10^3/uL (4.0-10.5)
[2016-12-07 17:12] LABS: ALANINE AMINOTRANSFERASE 23 U/L (9-52); ALBUMIN 3.6 g/dL (3.5-5.0); ALKALINE PHOSPHATASE 106 U/L (38-126); ANION GAP 14 (5-19); ASPARTATE AMINO TRANSFERASE 24 U/L (14-36); BILIRUBIN,DIRECT 0.8 mg/dL (0.0-0.4); BILIRUBIN,TOTAL 1.5 mg/dL (0.2-1.3); BLOOD UREA NITROGEN 7 mg/dL (7-20); CALCIUM 9.1 mg/dL (8.4-10.2); CARBON DIOXIDE 25 mmol/L (22-30); CHLORIDE 105 mmol/L (98-107); GLUCOSE 165 mg/dL (75-110); LIPASE 107.3 U/L (23-300); POTASSIUM 3.2 mmol/L (3.6-5.0); SODIUM 143.9 mmol/L (137-145); TOTAL PROTEIN 7.3 g/dL (6.3-8.2)
[2016-12-07] MEDS ORDERED: PAROXETINE HCL 20 MG TABLET PO ONE (17:15)
[2016-12-07] MEDS ORDERED: QUETIAPINE FUMARATE 100 MG TABLET PO ONE (17:15)
[2016-12-07] MEDS ORDERED: KETOROLAC TROMETHAMINE INJ/PF 30 MG/1 ML SDV IV ONE (17:17)
[2016-12-07 17:40] VITALS: BP 170/100
[2016-12-07 17:46] LABS: APPEARANCE,URINE SLIGHTLY-CLOUDY; BILIRUBIN,URINE NEGATIVE (NEGATIVE); CALCIUM OXALATE CRYSTALS,URINE FEW /HPF; GLUCOSE, URINE NEGATIVE (NEGATIVE); KETONES,URINE NEGATIVE (NEGATIVE); LEUKOCYTE ESTERASE,URINE NEGATIVE (NEGATIVE); NITRITE,URINE NEGATIVE (NEGATIVE); PROTEIN,URINE 30 mg/dL (NEGATIVE); URINE SPECIFIC GRAVITY 1.019
--- NOTE | 2016-12-08 08:15 | EKG REPORT ---
SEVERITY:- ABNORMAL ECG - SINUS RHYTHM VENTRICULAR TRIGEMINY INFERIOR INFARCT, AGE INDETERMINATE LATERAL LEADS ARE ALSO INVOLVED PROLONGED QT INTERVAL : Confirmed by: Agustin Crawford MD 08-Dec-2016 08:13:39
== END 2016-12-07 18:00 | disposition home or self-care (01) ==
LOC: ER 15:31
DX: R10.9 Unspecified abdominal pain (principal); G89.29 Other chronic pain; F17.200 Nicotine dependence, unspecified, uncomplicated
CPT/HCPCS: 93005; 99284; 96361; 96374; 36415; 83690; 85025; 80053; 81001; 84484; 93010; J3490 ×2; J1885; J7040

== ENCOUNTER 2016-12-08 13:48 | Emergency (ER) | payer MEDICAID ==
[2016-12-08 14:30] VITALS: BP 188/117
[2016-12-08] MEDS ORDERED: DICYCLOMINE HCL 20 MG TABLET PO ONE (16:24)
--- NOTE | 2016-12-08 16:25 | ER Document Report ---
ED Medical Screen (RME) - General Chief Complaint: Abdominal Pain Stated Complaint: ABDOMINAL PAIN Time Seen by Provider: 12/08/16 16:22 Notes: This is patient's third visit in 2 days for abdominal pain. Patient states that the medication she was prescribed are not helping. She states she is having vomiting and decreased appetite. She states abdominal pain is diffuse and crampy in nature. TRAVEL OUTSIDE OF THE [place] IN LAST 30 DAYS: No - Related Data Allergies/Adverse Reactions: haloperidol [From Haldol] Allergy (Verified 12/06/16 16:29) haloperidol lactate [From Haldol] Allergy (Verified 12/06/16 16:29) Past Medical History - Social History Family history: Reviewed & Not Pertinent - Past Medical History Cardiac Medical History: Reports: Hx Coronary Artery Disease, Hx Heart Attack - x2, Hx Hypercholesterolemia, Hx Hypertension Pulmonary Medical History: Reports: Hx Bronchitis, Hx COPD Endocrine Medical History: Reports: Hx Diabetes Mellitus Type 2 Renal/ Medical History: Reports: Hx Kidney Stones. Denies: Hx Peritoneal Dialysis GI Medical History: Reports: Hx Gastroesophageal Reflux Disease Psychiatric Medical History: Reports: Hx Bipolar Disorder, Hx Depression, Hx Schizophrenia Past Surgical History: Reports: Hx Cardiac Catheterization, Hx Cardiac Surgery - stents, CABG 09/2016, Hx Cholecystectomy, Hx Coronary Stent - x2 - Immunizations Hx Diphtheria, Pertussis, Tetanus Vaccination: Yes History of Influenza Vaccine for 11/2016 - 04/2017 Season: No Physical Exam - Vital signs Vitals: Pulse Resp BP Pulse Ox 97 16 188/117 H 100 12/08/16 14:28 12/08/16 14:28 12/08/16 14:28 12/08/16 14:28 Course - Vital Signs Vital signs: Temp Pulse Resp BP Pulse Ox 97 16 188/117 H 100 12/08/16 14:28 12/08/16 14:28 12/08/16 14:28 12/08/16 14:28
== END 2016-12-08 19:19 | disposition left against medical advice (07) ==
LOC: ER 13:48
DX: R10.9 Unspecified abdominal pain (principal); I25.10 Atherosclerotic heart disease of native coronary artery without angina pectoris; E78.00 Pure hypercholesterolemia, unspecified; I10 Essential (primary) hypertension; J44.9 Chronic obstructive pulmonary disease, unspecified; E11.9 Type 2 diabetes mellitus without complications; I25.2 Old myocardial infarction; Z87.442 Personal history of urinary calculi; Z95.1 Presence of aortocoronary bypass graft; Z90.49 Acquired absence of other specified parts of digestive tract
CPT/HCPCS: 99281; J3490

== ENCOUNTER 2016-12-08 21:09 | Emergency (ER) | payer MEDICAID ==
[2016-12-08] MEDS ORDERED: ASPIRIN 81 MG TABLET, CHEWABLE PO ONE (21:18)
--- NOTE | 2016-12-08 22:20 | RADIOLOGY REPORT (SQ) ---
EXAM DESCRIPTION: CHEST SINGLE VIEW COMPLETED DATE/TIME: 12/08/2016 9:45 pm REASON FOR STUDY: CP COMPARISON: 07/23/2016 NUMBER OF VIEWS: One view. TECHNIQUE: Single frontal radiographic view of the chest acquired. LIMITATIONS: None. FINDINGS: LUNGS AND PLEURA: No acute opacities, masses or pneumothorax. No pleural effusion. MEDIASTINUM AND HILAR STRUCTURES: Stable. HEART AND VASCULAR STRUCTURES: Heart stable in size. Normal vasculature. Prior CABG. BONES: No acute findings. HARDWARE: CABG hardware. OTHER: No other significant finding. IMPRESSION: No acute findings. TECHNICAL DOCUMENTATION: JOB ID: [id number] [employer]- All Rights Reserved
--- NOTE | 2016-12-08 22:28 | ER Document Report ---
ED Medical Screen (RME) - General Chief Complaint: Epigastric Pain Stated Complaint: EPIGASTRIC PAIN Notes: Patient is a 56-year-old, chronic constipation, chronic pain, presents by EMS with epigastric pain, nausea, vomiting and subjective fevers. She was seen earlier in the ER, but left while waiting for a bed. She was also seen in the past 2 nights. She came in by ambulance and given 324 mg aspirin and 3 sublingual nitros. PE: NAD. RRR. Lungs CTAB. I have greeted and performed a rapid initial assessment of this patient. A comprehensive ED assessment and evaluation of the patient, analysis of test results and completion of the medical decision making process will be conducted by additional ED providers. TRAVEL OUTSIDE OF THE [place] IN LAST 30 DAYS: No - Related Data Allergies/Adverse Reactions: haloperidol [From Haldol] Allergy (Verified 12/08/16 21:55) haloperidol lactate [From Haldol] Allergy (Verified 12/08/16 21:55) Past Medical History - Social History Family history: Reviewed & Not Pertinent - Past Medical History Cardiac Medical History: Reports: Hx Coronary Artery Disease, Hx Heart Attack - x2, Hx Hypercholesterolemia, Hx Hypertension Pulmonary Medical History: Reports: Hx Bronchitis, Hx COPD Endocrine Medical History: Reports: Hx Diabetes Mellitus Type 2 Renal/ Medical History: Reports: Hx Kidney Stones. Denies: Hx Peritoneal Dialysis GI Medical History: Reports: Hx Gastroesophageal Reflux Disease Psychiatric Medical History: Reports: Hx Bipolar Disorder, Hx Depression, Hx Schizophrenia Past Surgical History: Reports: Hx Cardiac Catheterization, Hx Cardiac Surgery - stents, CABG 09/2016, Hx Cholecystectomy, Hx Coronary Stent - x2 - Immunizations Hx Diphtheria, Pertussis, Tetanus Vaccination: Yes History of Influenza Vaccine for 11/2016 - 04/2017 Season: No Physical Exam - Vital signs Vitals: Temp Pulse Resp BP Pulse Ox 97.8 F 80 22 H 122/73 96 12/08/16 21:55 12/08/16 21:55 12/08/16 21:55 12/08/16 21:55 12/08/16 21:55 Course - Vital Signs Vital signs: Temp Pulse Resp BP Pulse Ox 97.8 F 80 22 H 122/73 96 12/08/16 21:55 12/08/16 21:55 12/08/16 21:55 12/08/16 21:55 12/08/16 21:55
[2016-12-08] MEDS ORDERED: MAG HYDROX/AL HYDROX/SIMETH SUSP 30 ML UDCUP PO ONE (23:57)
[2016-12-08] MEDS ORDERED: METOCLOPRAMIDE HCL ORAL SOLN 10 MG/10 ML UDCUP PO ONE (23:57)
[2016-12-08] MEDS ORDERED: LIDOCAINE 2% VISCOUS SOLN 20 ML UDCUP PO ONE (23:57)
--- NOTE | 2016-12-08 23:58 | ER Document Report ---
ED General - General Chief Complaint: Epigastric Pain Stated Complaint: EPIGASTRIC PAIN Time Seen by Provider: 12/08/16 22:32 Notes: Patient is a 56-year-old female who presents with complaint of epigastric abdominal pain. She also mentions that she has not had a bowel movement during of days and feels constipated. Some nausea but no vomiting. No fevers. No diarrhea. No chest pain. No difficulty breathing. She does have a history of coronary disease. She did have a coronary artery bypass in August. She says that she is continuing to have epigastric pain ever since the bypass. She has been seen here many times the last 3 months. This is her 11th visit in the last 2 months. Her troponins are typically anywhere from 0.03-0.05 review of her previous records. Patient says she is having the same epigastric pain is not improving. She was admitted a few weeks ago and was diagnosed with constipation. She says she was placed on stool softeners but forgot to take them the last 2 days. She has no other complaints at this time. TRAVEL OUTSIDE OF THE [place] IN LAST 30 DAYS: No - Related Data Allergies/Adverse Reactions: haloperidol [From Haldol] Allergy (Verified 12/08/16 21:55) haloperidol lactate [From Haldol] Allergy (Verified 12/08/16 21:55) Past Medical History - Social History Smoking Status: Current Every Day Smoker Frequency of alcohol use: None Drug Abuse: None Family History: Reviewed & Not Pertinent, CAD - Extensive heart disease in mother and brother with brother dying from complications of cardiac stent placement Patient has suicidal ideation: No Patient has homicidal ideation: No - Past Medical History Cardiac Medical History: Reports: Hx Coronary Artery Disease, Hx Heart Attack - x2, Hx Hypercholesterolemia, Hx Hypertension Pulmonary Medical History: Reports: Hx Bronchitis, Hx COPD Endocrine Medical History: Reports: Hx Diabetes Mellitus Type 2 Renal/ Medical History: Reports: Hx Kidney Stones. Denies: Hx Peritoneal Dialysis GI Medical History: Reports: Hx Gastroesophageal Reflux Disease Psychiatric Medical History: Reports: Hx Bipolar Disorder, Hx Depression, Hx Schizophrenia Past Surgical History: Reports: Hx Cardiac Catheterization, Hx Cardiac Surgery - stents, CABG 09/2016, Hx Cholecystectomy, Hx Coronary Stent - x2 - Immunizations Hx Diphtheria, Pertussis, Tetanus Vaccination: Yes Review of Systems - Review of Systems Notes: My Normal Review Basic REVIEW OF SYSTEMS: CONSTITUTIONAL : Denies fever, chills, or sweats. Denies recent illness. EENT: Denies eye, ear, throat, or mouth pain or symptoms. Denies nasal or sinus congestion. CARDIOVASCULAR: Denies chest pain. RESPIRATORY: Denies cough, cold, or chest congestion. Denies shortness of breath, difficulty breathing, or wheezing. GASTROINTESTINAL: Has epigastric abdominal pain. Denies nausea, vomiting, or diarrhea. Denies constipation. Last BM: GENITOURINARY: Denies difficulty urinating, painful urination, burning, frequency, or blood in urine.: MUSCULOSKELETAL: Denies neck or back pain or joint pain or swelling. SKIN: Denies rash or skin lesions. NEUROLOGICAL: Denies altered mental status or loss of consciousness. Denies headache. Denies weakness or paralysis or loss of use of either side. Denies problems with gait or speech. Denies sensory or motor loss. ALL OTHER SYSTEMS REVIEWED AND NEGATIVE. Physical Exam - Vital signs Vitals: Temp Pulse Resp BP Pulse Ox 97.8 F 80 22 H 122/73 96 12/08/16 21:55 12/08/16 21:55 12/08/16 21:55 12/08/16 21:55 12/08/16 21:55 - Notes Notes: General Appearance: Well nourished, alert, cooperative, no acute distress, no obvious discomfort. Well-appearing. Vitals: reviewed, See vital signs table. Head: no swelling or tenderness to the head Eyes: PERRL, EOMI, Conjuctiva clear Mouth: No decreasd moisture Lungs: No wheezing, No rales, No rhonci, No accessory muscle use, good air exchange bilaterally. Heart: Normal rate, Regular rythm, No murmur, no rub Abdomen: Normal BS, soft, No rigidity, mild to moderate epigastric abdominal tenderness palpation, No guarding, no rebound, no abdominal masses, no organomegaly Extremities: strength 5/5 in all extremities, good pulses in all extremities, no swelling or tenderness in the extremities, no edema. Skin: warm, dry, appropriate color, no rash Neuro: speech clear, oriented x 3, normal affect, responds appropriately to questions. Course - Re-evaluation Re-evalutation: 12/09/16 01:48 Patient is well-appearing. Her EKG is completely unchanged in comparison to her previous EKGs. Her troponin is in the indeterminate range which is chronic for her. She has pain only in the epigastric region is easily reproducible palpation. She complains of constipation has not been taking her Colace. I think it is unlikely that this is coronary disease related based on the fact that her pain is in the epigastrium easily reproducible with palpation and that her troponin is chronically in the indeterminate range and is not elevated beyond that. At this time for the patient safe to be discharged home. I encouraged her return to ER if she develops chest pain, worsening abdominal pain , vomiting, or feels unwell. Patient agrees with plan and will be discharged home. Dictation of this chart was performed using voice recognition software; therefore, there may be some unintended grammatical errors. - Vital Signs Vital signs: Temp Pulse Resp BP Pulse Ox 97.8 F 80 22 H 122/73 98 12/08/16 21:55 12/08/16 21:55 12/08/16 21:55 12/08/16 21:55 12/08/16 22:30 - Laboratory Result Diagrams: 12/08/16 23:50 12/08/16 23:50 Laboratory results interpreted by me: 12/08/16 12/08/16 23:50 23:50 Hgb 11.0 L Hct 33.7 L MCH 26.8 L RDW 18.5 H Potassium 3.3 L Glucose 157 H Total Bilirubin 1.8 H Direct Bilirubin 1.1 H - EKG Interpretation by Me Additional EKG results interpreted by me: 12/08/16 23:53 EKG is reviewed and interpreted by me. EKG shows normal sinus rhythm with rate of [address] segment elevation. Patient does have chronic ST segment depression leads I aVL which are unchanged in comparison to her previous EKG from December 07, 2016. NE interval, QRS duration, QTc intervals are within normal range. Discharge - Discharge Clinical Impression: Abdominal pain Qualifiers: Abdominal location: epigastric Qualified Code(s): R10.13 - Epigastric pain Condition: Good Disposition: HOME, SELF-CARE Additional Instructions: Please return to the ER immediately if you have chest pain, difficulty breathing , vomiting, fevers,or worsening abdominal pain. Please take your stool softners as prescribed and please take the Miralax to help you have a bowel movement. Prescriptions: Polyethylene Glycol 3350 [Miralax] 1 cap PO DAILY #527 powder Referrals: TREVON SKAGGS PA-C [Primary Care Provider] - Follow up tomorrow
[2016-12-09 00:04] LABS: ABSOLUTE BASOPHILS # (AUTO) 0.1 10^3/uL (0.0-0.2); ABSOLUTE LYMPHOCYTES (AUTO) 2.3 10^3/uL (0.5-4.7); ABSOLUTE MONOCYTES (AUTO) 0.7 10^3/uL (0.1-1.4); ABSOLUTE NEUT (AUTO) 5.3 10^3/uL (1.7-8.2); BASOPHILS % (AUTO) 0.8 % (0-2); HEMATOCRIT 33.7 % (36.0-47.0); HGB HCT DIFFERENCE -0.7; LYMPHOCYTES % (AUTO) 27.8 % (13-45); MEAN CORPUSCULAR HEMOGLOBIN 26.8 pg (27.0-33.4); MEAN CORPUSCULAR HGB CONC 32.8 g/dL (32.0-36.0); MEAN CORPUSCULAR VOLUME 82 fl (80-97); MONOCYTES % (AUTO) 7.8 % (3-13); RED BLOOD COUNT 4.12 10^6/uL (3.72-5.28); RED CELL DISTRIBUTION WIDTH 18.5 % (11.5-14.0); SEGMENTED NEUTROPHILS % (AUTO) 63.6 % (42-78); WHITE BLOOD COUNT 8.4 10^3/uL (4.0-10.5)
[2016-12-09 00:24] LABS: ALANINE AMINOTRANSFERASE 29 U/L (9-52); ALBUMIN 3.8 g/dL (3.5-5.0); ALKALINE PHOSPHATASE 104 U/L (38-126); ANION GAP 15 (5-19); ASPARTATE AMINO TRANSFERASE 32 U/L (14-36); BILIRUBIN,DIRECT 1.1 mg/dL (0.0-0.4); BILIRUBIN,TOTAL 1.8 mg/dL (0.2-1.3); BLOOD UREA NITROGEN 11 mg/dL (7-20); CALCIUM 9.6 mg/dL (8.4-10.2); CARBON DIOXIDE 25 mmol/L (22-30); CHLORIDE 104 mmol/L (98-107); CREATINE KINASE 81 U/L (30-135); CREATININE RESULT 0.91 mg/dL (0.52-1.25); GLUCOSE 157 mg/dL (75-110); POTASSIUM 3.3 mmol/L (3.6-5.0); SODIUM 144.2 mmol/L (137-145); TOTAL PROTEIN 7.5 g/dL (6.3-8.2)
[2016-12-09] MEDS ORDERED: POTASSIUM CHLORIDE 10 MEQ TABLET.SA PO ONE (01:07)
[2016-12-09 02:19] VITALS: BP 128/66
--- NOTE | 2016-12-09 08:09 | EKG REPORT ---
SEVERITY:- ABNORMAL ECG - SINUS RHYTHM VENTRICULAR PREMATURE COMPLEX INFERIOR INFARCT, AGE INDETERMINATE LATERAL INFARCT, AGE INDETERMINATE : Confirmed by: Agustin Crawford MD 09-Dec-2016 08:08:42
--- NOTE | 2016-12-10 08:09 | EKG REPORT ---
SEVERITY:- ABNORMAL ECG - SINUS RHYTHM MULTIFORM VENTRICULAR PREMATURE COMPLEXES INFERIOR INFARCT, AGE INDETERMINATE LATERAL INFARCT, AGE INDETERMINATE CONSIDER ANTERIOR INFARCT : Confirmed by: Agustin Crawford MD 10-Dec-2016 08:08:39
== END 2016-12-09 02:20 | disposition home or self-care (01) ==
LOC: ER 21:09
DX: R10.13 Epigastric pain (principal); F17.200 Nicotine dependence, unspecified, uncomplicated
CPT/HCPCS: 93005; 99284; 36415; 82550; 83735; 85025; 80053; 84484; 71010; 93010; J3490 ×3

== ENCOUNTER 2016-12-09 19:52 | Emergency (ER) | payer MEDICAID ==
[2016-12-09 20:40] VITALS: BP 140/88
--- NOTE | 2016-12-09 20:59 | ER Document Report ---
ED Medical Screen (RME) - General Chief Complaint: Chest Pain Stated Complaint: CHEST PAIN Time Seen by Provider: 12/09/16 20:57 Notes: Patient has several visits here recently. She can planes of epigastric and chest pain that radiates to her mid back. She states she has had nausea and vomiting. Patient does have a history of myocardial infarction with bypass. She states this pain feels similar to that. TRAVEL OUTSIDE OF THE [place] IN LAST 30 DAYS: No - Related Data Allergies/Adverse Reactions: haloperidol [From Haldol] Allergy (Verified 12/09/16 20:53) haloperidol lactate [From Haldol] Allergy (Verified 12/09/16 20:53) Past Medical History - Social History Family history: Reviewed & Not Pertinent - Past Medical History Cardiac Medical History: Reports: Hx Coronary Artery Disease, Hx Heart Attack - x2, Hx Hypercholesterolemia, Hx Hypertension Pulmonary Medical History: Reports: Hx Bronchitis, Hx COPD Endocrine Medical History: Reports: Hx Diabetes Mellitus Type 2 Renal/ Medical History: Reports: Hx Kidney Stones. Denies: Hx Peritoneal Dialysis GI Medical History: Reports: Hx Gastroesophageal Reflux Disease Psychiatric Medical History: Reports: Hx Bipolar Disorder, Hx Depression, Hx Schizophrenia Past Surgical History: Reports: Hx Cardiac Catheterization, Hx Cardiac Surgery - stents, CABG 09/2016, Hx Cholecystectomy, Hx Coronary Stent - x2 - Immunizations Hx Diphtheria, Pertussis, Tetanus Vaccination: Yes History of Influenza Vaccine for 11/2016 - 04/2017 Season: No Physical Exam - Vital signs Vitals: Temp Pulse Resp BP Pulse Ox 97.4 F 83 20 140/88 H 100 12/09/16 20:38 12/09/16 20:38 12/09/16 20:38 12/09/16 20:38 12/09/16 20:38 Course - Vital Signs Vital signs: Temp Pulse Resp BP Pulse Ox 97.4 F 83 20 140/88 H 100 12/09/16 20:38 12/09/16 20:38 12/09/16 20:38 12/09/16 20:38 12/09/16 20:38
--- NOTE | 2016-12-09 22:32 | RADIOLOGY REPORT (SQ) ---
EXAM DESCRIPTION: CHEST PA/LAT COMPLETED DATE/TIME: 12/09/2016 9:25 pm REASON FOR STUDY: CHEST PAIN COMPARISON: 12/08/2016 NUMBER OF VIEWS: Two view. TECHNIQUE: Frontal and lateral radiographic views of the chest acquired. LIMITATIONS: None. FINDINGS: LUNGS AND PLEURA: No acute opacities, masses or pneumothorax. Similar mild interstitial m arkings -scarring in the left lung base. No pleural effusion. MEDIASTINUM AND HILAR STRUCTURES: Stable. HEART AND VASCULATURE: Heart stable size. No evidence for failure. Prior CABG. BONES: No acute findings. HARDWARE: CABG hardware. OTHER: No other significant finding. IMPRESSION: No acute finding. TECHNICAL DOCUMENTATION: JOB ID: [id number] [employer]- All Rights Reserved
== END 2016-12-09 21:25 | disposition left against medical advice (07) ==
LOC: ER 19:52
DX: R07.9 Chest pain, unspecified (principal); R10.13 Epigastric pain; I25.2 Old myocardial infarction
CPT/HCPCS: 71020; 99281

== ENCOUNTER 2016-12-12 08:14 | Emergency (ER) | payer MEDICAID ==
[2016-12-12 08:40] VITALS: BP 179/99
[2016-12-12 08:56] LABS: APPEARANCE,URINE CLOUDY; BILIRUBIN,URINE NEGATIVE (NEGATIVE); GLUCOSE, URINE NEGATIVE (NEGATIVE); KETONES,URINE NEGATIVE (NEGATIVE); LEUKOCYTE ESTERASE,URINE TRACE (NEGATIVE); NITRITE,URINE NEGATIVE (NEGATIVE); PROTEIN,URINE 30 mg/dL (NEGATIVE)
[2016-12-12 09:09] LABS: URINE BARBITURATES SCREEN NEGATIVE; URINE METHADONE SCREEN NEGATIVE; URINE OPIATES LOW UNCONFIRMED POSITIVE; URINE PHENCYCLIDINE SCREEN NEGATIVE
== END 2016-12-12 09:20 | disposition left against medical advice (07) ==
LOC: ER 08:14
DX: Z53.21 Procedure and treatment not carried out due to patient leaving prior to being seen by health care provider (principal)
CPT/HCPCS: 80307; 81001

== ENCOUNTER 2016-12-12 12:18 | Emergency (ER) | payer MEDICAID ==
[2016-12-12 12:32] VITALS: BP 147/77
[2016-12-12] MEDS ORDERED: ONDANSETRON 4 MG TAB.RAPDIS SL ONE (12:50)
--- NOTE | 2016-12-12 12:51 | ER Document Report ---
ED Medical Screen (RME) - General Chief Complaint: Chest Pain Stated Complaint: CHEST PAIN Time Seen by Provider: 12/12/16 12:34 Mode of Arrival: Wheelchair Information source: Patient, Relative TRAVEL OUTSIDE OF THE [place] IN LAST 30 DAYS: No - HPI Patient complains to provider of: Abdominal pain, vomiting, chest pain, syncope Notes: 12/12/16 12:50 Patient is a 48-year-old female presenting to the emergency room today complaining of abdominal pain with nausea and vomiting, chest pain, frequent syncope, symptoms have been going on for 9 weeks, she was just released from [facility], and has been seen at night and for these problems recently as well - Related Data Allergies/Adverse Reactions: haloperidol [From Haldol] Allergy (Verified 12/09/16 20:53) haloperidol lactate [From Haldol] Allergy (Verified 12/09/16 20:53) Past Medical History - Social History Family history: Reviewed & Not Pertinent - Past Medical History Cardiac Medical History: Reports: Hx Coronary Artery Disease, Hx Heart Attack - x2, Hx Hypercholesterolemia, Hx Hypertension Pulmonary Medical History: Reports: Hx Bronchitis, Hx COPD Endocrine Medical History: Reports: Hx Diabetes Mellitus Type 2 Renal/ Medical History: Reports: Hx Kidney Stones. Denies: Hx Peritoneal Dialysis GI Medical History: Reports: Hx Gastroesophageal Reflux Disease Psychiatric Medical History: Reports: Hx Bipolar Disorder, Hx Depression, Hx Schizophrenia Past Surgical History: Reports: Hx Cardiac Catheterization, Hx Cardiac Surgery - stents, CABG 09/2016, Hx Cholecystectomy, Hx Coronary Stent - x2 - Immunizations Hx Diphtheria, Pertussis, Tetanus Vaccination: Yes History of Influenza Vaccine for 11/2016 - 04/2017 Season: No Physical Exam - Vital signs Vitals: Temp Pulse Resp BP Pulse Ox 97.7 F 83 19 147/77 H 97 12/12/16 12:28 12/12/16 12:28 12/12/16 12:28 12/12/16 12:28 12/12/16 12:28 Course - Vital Signs Vital signs: Temp Pulse Resp BP Pulse Ox 97.7 F 83 19 147/77 H 97 12/12/16 12:28 12/12/16 12:28 12/12/16 12:28 12/12/16 12:28 12/12/16 12:28
--- NOTE | 2016-12-13 08:04 | EKG REPORT ---
SEVERITY:- ABNORMAL ECG - SINUS RHYTHM INFERIOR INFARCT, AGE INDETERMINATE CONSIDER ANTERIOR INFARCT LATERAL LEADS ARE ALSO INVOLVED : Confirmed by: Agustin Crawford MD 13-Dec-2016 08:03:31
== END 2016-12-12 13:22 | disposition left against medical advice (07) ==
LOC: ER 12:18
DX: R07.9 Chest pain, unspecified (principal); R11.2 Nausea with vomiting, unspecified; R10.9 Unspecified abdominal pain; R55 Syncope and collapse; I25.10 Atherosclerotic heart disease of native coronary artery without angina pectoris; I25.2 Old myocardial infarction; I10 Essential (primary) hypertension; J44.9 Chronic obstructive pulmonary disease, unspecified; E11.9 Type 2 diabetes mellitus without complications; Z53.20 Procedure and treatment not carried out because of patient's decision for unspecified reasons; Z88.8 Allergy status to other drugs, medicaments and biological substances; Z87.19 Personal history of other diseases of the digestive system; Z95.1 Presence of aortocoronary bypass graft; Z95.5 Presence of coronary angioplasty implant and graft
CPT/HCPCS: 93005; 93010; 99281; 99284

== ENCOUNTER 2016-12-12 18:10 | Emergency (ER) | payer MEDICAID ==
--- NOTE | 2016-12-12 18:23 | ER Document Report ---
ED Medical Screen (RME) - General Chief Complaint: Medical Clearance Stated Complaint: PSYCH EVAL Time Seen by Provider: 12/12/16 18:20 Mode of Arrival: Ambulatory Information source: Patient TRAVEL OUTSIDE OF THE [place] IN LAST 30 DAYS: No - HPI Patient complains to provider of: Requesting detox assistance Notes: 12/12/16 18:21 Patient is a 56-year-old female who is brought to the emergency room by a worker from our requesting detox assistance, brought to the ER for "medical clearance", patient has been seen in this emergency room multiple times in recent weeks for nausea and vomiting with chest pain, with a relatively unremarkable evaluation, she did also reveal that she has been seen at multiple other hospitals recently including [facility] in [place] and hospital in [place], she was actually at this hospital twice earlier today, the first time leaving prior to a medical screening exam, the second time leaving after her medical screening exam with this provider after I explained to patient that I would not be giving her any narcotic pain medication and that I believe she was having issues with narcotic abuse and addiction and possible withdrawal, her son who accompanied her agreed that this was likely her condition, and patient eloped from the department refusing to sign out AGAINST MEDICAL ADVICE, however her son did sign the paperwork, she has now returned requesting assistance in admitting that she likely is going through withdrawal symptoms from having morphine during her multiple hospital visits recently - Related Data Allergies/Adverse Reactions: haloperidol [From Haldol] Allergy (Verified 12/09/16 20:53) haloperidol lactate [From Haldol] Allergy (Verified 12/09/16 20:53) Past Medical History - Social History Family history: Reviewed & Not Pertinent - Past Medical History Cardiac Medical History: Reports: Hx Coronary Artery Disease, Hx Heart Attack - x2, Hx Hypercholesterolemia, Hx Hypertension Pulmonary Medical History: Reports: Hx Bronchitis, Hx COPD Endocrine Medical History: Reports: Hx Diabetes Mellitus Type 2 Renal/ Medical History: Reports: Hx Kidney Stones. Denies: Hx Peritoneal Dialysis GI Medical History: Reports: Hx Gastroesophageal Reflux Disease Psychiatric Medical History: Reports: Hx Bipolar Disorder, Hx Depression, Hx Schizophrenia Past Surgical History: Reports: Hx Cardiac Catheterization, Hx Cardiac Surgery - stents, CABG 09/2016, Hx Cholecystectomy, Hx Coronary Stent - x2 - Immunizations Hx Diphtheria, Pertussis, Tetanus Vaccination: Yes History of Influenza Vaccine for 11/2016 - 04/2017 Season: No Physical Exam - Vital signs Vitals: Temp Pulse Resp BP Pulse Ox 97.8 F 97 18 181/104 H 97 12/12/16 18:11 12/12/16 18:11 12/12/16 18:11 12/12/16 18:11 12/12/16 18:11 Course - Vital Signs Vital signs: Temp Pulse Resp BP Pulse Ox 97.8 F 97 18 181/104 H 97 12/12/16 18:11 12/12/16 18:11 12/12/16 18:11 12/12/16 18:11 12/12/16 18:11
[2016-12-12 19:16] LABS: APPEARANCE,URINE SLIGHTLY-CLOUDY; BILIRUBIN,URINE NEGATIVE (NEGATIVE); GLUCOSE, URINE 50 mg/dL (NEGATIVE); KETONES,URINE TRACE mg/dL (NEGATIVE); LEUKOCYTE ESTERASE,URINE TRACE (NEGATIVE); NITRITE,URINE NEGATIVE (NEGATIVE); PROTEIN,URINE 100 mg/dL (NEGATIVE); URINE SPECIFIC GRAVITY 1.009
[2016-12-12 19:38] LABS: URINE BARBITURATES SCREEN NEGATIVE; URINE METHADONE SCREEN NEGATIVE; URINE OPIATES LOW NEGATIVE; URINE PHENCYCLIDINE SCREEN NEGATIVE
[2016-12-12 19:57] LABS: HEMATOCRIT 37.2 % (36.0-47.0); HGB HCT DIFFERENCE -1.2; MEAN CORPUSCULAR HEMOGLOBIN 26.4 pg (27.0-33.4); MEAN CORPUSCULAR HGB CONC 32.3 g/dL (32.0-36.0); MEAN CORPUSCULAR VOLUME 82 fl (80-97); RED BLOOD COUNT 4.55 10^6/uL (3.72-5.28); RED CELL DISTRIBUTION WIDTH 19.5 % (11.5-14.0); WHITE BLOOD COUNT 13.2 10^3/uL (4.0-10.5)
[2016-12-12 20:30] LABS: BAND NEUTROPHILS % (MANUAL) 1 % (3-5); BASOPHILS % (MANUAL) 0 % (0-2); EOSINOPHILS % (MANUAL) 0 % (0-6); LYMPHOCYTES % (MANUAL) 22 % (13-45); NUCLEATED RED BLOOD CELLS 1 /100 WBC (0); TOTAL CELLS COUNTED 100
[2016-12-12 20:31] LABS: PLATELET CLUMPS PRESENT
[2016-12-12 20:33] LABS: ANISOCYTOSIS 2+; BURR CELLS SLIGHT; OVALOCYTES SLIGHT; POIKILOCYTOSIS SLIGHT; POLYCHROMASIA SLIGHT; TARGET CELLS SLIGHT
[2016-12-12 20:34] LABS: TOXIC VACUOLATION PRESENT
[2016-12-12] MEDS ORDERED: PROMETHAZINE HCL 25 MG TABLET PO ONE (21:53)
[2016-12-12] MEDS ORDERED: OXYCODONE-ACETAMINOPHEN 5-325 MG TABLET PO ONE (21:53)
[2016-12-12 22:32] LABS: ALANINE AMINOTRANSFERASE 29 U/L (9-52); ALBUMIN 4.2 g/dL (3.5-5.0); ALKALINE PHOSPHATASE 116 U/L (38-126); ANION GAP 15 (5-19); ASPARTATE AMINO TRANSFERASE 32 U/L (14-36); BILIRUBIN,DIRECT 1.2 mg/dL (0.0-0.4); BILIRUBIN,TOTAL 2.2 mg/dL (0.2-1.3); BLOOD UREA NITROGEN 9 mg/dL (7-20); CALCIUM 9.9 mg/dL (8.4-10.2); CARBON DIOXIDE 27 mmol/L (22-30); CHLORIDE 103 mmol/L (98-107); CREATININE RESULT 0.77 mg/dL (0.52-1.25); GLUCOSE 133 mg/dL (75-110); POTASSIUM 3.4 mmol/L (3.6-5.0); SODIUM 144.8 mmol/L (137-145); TOTAL PROTEIN 8.1 g/dL (6.3-8.2)
[2016-12-12 22:35] LABS: ALCOHOL < 10 mg/dL (NONE DETECTED)
--- NOTE | 2016-12-12 22:57 | RADIOLOGY REPORT (SQ) ---
EXAM DESCRIPTION: CT HEAD WITHOUT COMPLETED DATE/TIME: 12/12/2016 10:44 pm REASON FOR STUDY: delta ms COMPARISON: None. TECHNIQUE: Axial images acquired through the brain without intravenous contrast. Images reviewed wi th bone, brain and subdural windows. Images stored on PACS. All CT scanners at this facility use dose modulation, iterative reconstruction, and/or weight based d osing when appropriate to reduce radiation dose to as low as reasonably achievable (ALARA). [facility]: Dose Right [facility]: CareDose [facility]: Dose Right [facility]: Teradose 4D [facility]: Smart YaBattle RADIATION DOSE: Up-to-date CT equipment and radiation dose reduction techniques were employed. CTDIv ol: 64.6 mGy. DLP: 1163 mGy-cm. mGy. LIMITATIONS: None. FINDINGS: VENTRICLES: Normal size and contour. CEREBRUM: No masses. No hemorrhage. No midline shift. No evidence for acute infarction. Large terr itory hypoattenuation within the right parietal white matter with neither significant mass effect nor ex vacuo dilatation of the adjacent posterior horn of the right lateral ventricle. Bautista-white matte r differentiation is otherwise maintained. CEREBELLUM: No masses. No hemorrhage. No alteration of density. No evidence for acute infarction. EXTRAAXIAL SPACES: No fluid collections. No masses. ORBITS AND GLOBE: No intra- or extraconal masses. Normal contour of globe without masses. CALVARIUM: No fracture. PARANASAL SINUSES: No fluid or mucosal thickening. SOFT TISSUES: No mass or hematoma. OTHER: No other significant finding. IMPRESSION: Right parietal hypoattenuation consistent with subacute versus chronic ischemic injury. No evidence of acute ischemic event. EVIDENCE OF ACUTE STROKE: NO. COMMENT: Quality ID # [id number]: Final reports with documentation of one or more dose reduction techniques (e.g., Automated exposure control, adjustment of the mA and/or kV according to patient size, use of iterative reconstruction technique) TECHNICAL DOCUMENTATION: JOB ID: [id number] [employer]- All Rights Reserved
[2016-12-12] MEDS ORDERED: MAG HYDROX/AL HYDROX/SIMETH SUSP 30 ML UDCUP PO ONE (22:59)
[2016-12-12] MEDS ORDERED: LIDOCAINE 2% VISCOUS SOLN 20 ML UDCUP PO ONE (22:59)
[2016-12-12] MEDS ORDERED: METOCLOPRAMIDE HCL ORAL SOLN 10 MG/10 ML UDCUP PO ONE (22:59)
--- NOTE | 2016-12-12 23:05 | RADIOLOGY REPORT (SQ) ---
EXAM DESCRIPTION: CT ABD/PELVIS ORAL ONLY COMPLETED DATE/TIME: 12/12/2016 10:44 pm REASON FOR STUDY: nausea, abdominal pain COMPARISON: 12/02/2016 and 11/23/2016 TECHNIQUE: CT scan of the abdomen and pelvis performed without intravenous or oral contrast. Images reviewed with lung, soft tissue, and bone windows. Reconstructed coronal and sagittal MPR images revi ewed. All images stored on PACS. All CT scanners at this facility use dose modulation, iterative reconstruction, and/or weight based d osing when appropriate to reduce radiation dose to as low as reasonably achievable (ALARA). [facility]: Dose Right [facility]: CareDose [facility]: Dose Right [facility]: Teradose 4D [facility]: Smart HyperBees RADIATION DOSE: Up-to-date CT equipment and radiation dose reduction techniques were employed. CTDIv ol: 14.4 mGy. DLP: 749 mGy-cm.mGy. LIMITATIONS: None. FINDINGS: LOWER CHEST: No significant findings. No nodules or infiltrates. Incidental note is made of scarring involving the left lung base. NON-CONTRASTED LIVER, SPLEEN, ADRENALS: Evaluation limited by lack of IV contrast. No identified sign ificant masses. PANCREAS: No masses. No peripancreatic inflammatory changes. GALLBLADDER: Surgically absent. RIGHT KIDNEY AND URETER: No suspicious masses. Assessment limited by lack of IV contrast. No signif icant calcifications. No hydronephrosis or hydroureter. LEFT KIDNEY AND URETER: No suspicious masses. Assessment limited by lack of IV contrast. No signifi cant calcifications. No hydronephrosis or hydroureter. AORTA AND RETROPERITONEUM: No aneurysm. No retroperitoneal masses or adenopathy. BOWEL AND PERITONEAL CAVITY: No obvious masses or inflammatory changes. APPENDIX: Normal. PELVIS, BLADDER, AND ABDOMINAL WALL:Re- demonstration of simple appearing free fluid within the pelvi s as well as scant free fluid along the right hepatic lobe. BONES: No significant findings. OTHER: Re- demonstration of nodular soft tissue density within the left inguinal region ventral to th e common femoral artery and vein, most likely on the basis of a hematoma. Previously noted adjacent soft tissue stranding has resolved. IMPRESSION: Essentially stable CT appearance of the abdomen and pelvis, again demonstrating a left i nguinal hematoma noting decreased adjacent fat stranding as well as a small amount of free peritoneal fluid which has shifted largely to the pelvis. COMMENT: Quality ID # [id number]: Final reports with documentation of one or more dose reduction techniques (e.g., Automated exposure control, adjustment of the mA and/or kV according to patient size, use of iterative reconstruction technique) TECHNICAL DOCUMENTATION: JOB ID: [id number] [employer]- All Rights Reserved
--- NOTE | 2016-12-13 00:03 | ER Document Report ---
ED General - General Chief Complaint: Medical Clearance Stated Complaint: PSYCH EVAL Time Seen by Provider: 12/12/16 18:20 Mode of Arrival: Ambulatory Information source: Patient, Relative Notes: This is a 56-year-old female with history of schizophrenia, coronary artery disease (status post CABG 10 weeks ago at [facility]), recent stroke (1 week ago at [facility]). She is brought into the emergency room because of concerns for acute opiate withdrawal. The patient has had abdominal pain which is become chronic in nature for the past few months. She did have an appointment with Dr. Celeste of GI for an EGD and a colonoscopy, but was nervous about the test and did not go through with it. She does complain of intermittent abdominal pain. She was seen today by home health care provider who was concerned that the patient may be having acute morphine withdrawal and was referred to the ER. TRAVEL OUTSIDE OF THE [place] IN LAST 30 DAYS: No - HPI Onset: Last week Onset/Duration: Gradual Quality of pain: Dull Severity: Moderate Pain Level: 2 Associated symptoms: denies: Chest pain, Fever, Shortness of breath Exacerbated by: Denies Relieved by: Denies Similar symptoms previously: Yes Recently seen / treated by doctor: Yes - Related Data Allergies/Adverse Reactions: haloperidol [From Haldol] Allergy (Verified 12/09/16 20:53) haloperidol lactate [From Haldol] Allergy (Verified 12/09/16 20:53) Home Medications: Current Home Medications Clopidogrel Bisulfate [Clopidogrel] 75 mg PO DAILY 12/13/16 [History] Hydrocodone/Acetaminophen [Hydrocodon-Acetaminophen 5-325] 1 tab PO Q4 PRN 12/13 [History] Isosorbide Mononitrate [Isosorbide Mononitrate ER] 15 mg PO DAILY 12/13/16 [ History] Omeprazole 20 mg PO DAILY 12/13/16 [History] Ondansetron [Ondansetron Odt] 4 mg PO Q8 PRN 12/13/16 [History] Sucralfate [Carafate 1 gm Tablet] 1 gm PO QID 12/13/16 [History] Past Medical History - General Information source: Patient - Social History Smoking Status: Current Every Day Smoker Cigarette use (# per day): Yes - 1 pack per day Chew tobacco use (# tins/day): No Frequency of alcohol use: None Drug Abuse: None Lives with: Family Family History: Reviewed & Not Pertinent, CAD - Extensive heart disease in mother and brother with brother dying from complications of cardiac stent placement Patient has suicidal ideation: No Patient has homicidal ideation: No - Past Medical History Cardiac Medical History: Reports: Hx Coronary Artery Disease, Hx Heart Attack - x2, Hx Hypercholesterolemia, Hx Hypertension Pulmonary Medical History: Reports: Hx Bronchitis, Hx COPD Endocrine Medical History: Reports: Hx Diabetes Mellitus Type 2 Renal/ Medical History: Reports: Hx Kidney Stones. Denies: Hx Peritoneal Dialysis GI Medical History: Reports: Hx Gastroesophageal Reflux Disease Psychiatric Medical History: Reports: Hx Bipolar Disorder, Hx Depression, Hx Schizophrenia Traumatic Medical History: Reports: None Infectious Medical History: Reports: None Past Surgical History: Reports: Hx Cardiac Catheterization, Hx Cardiac Surgery - stents, CABG 09/2016, Hx Cholecystectomy, Hx Coronary Stent - x2 - Immunizations Hx Diphtheria, Pertussis, Tetanus Vaccination: Yes Review of Systems - Review of Systems Constitutional: denies: Chills - Fever, Fever EENT: No symptoms reported Cardiovascular: No symptoms reported Respiratory: No symptoms reported Gastrointestinal: See HPI Genitourinary: No symptoms reported Female Genitourinary: No symptoms reported Musculoskeletal: No symptoms reported Skin: No symptoms reported Hematologic/Lymphatic: No symptoms reported Neurological/Psychological: See HPI Physical Exam - Vital signs Vitals: Temp Pulse Resp BP Pulse Ox 97.8 F 97 18 181/104 H 97 12/12/16 18:11 12/12/16 18:11 12/12/16 18:11 12/12/16 18:11 12/12/16 18:11 Notes: Physical exam: GENERAL: 56-year-old female, alert and oriented 3, no acute distress. HEAD: Atraumatic, normocephalic. EYES: Pupils equal round and reactive to light, extraocular movements intact, sclera anicteric, conjunctiva are normal. ENT: TMs normal, nares patent, oropharynx clear without exudates. Moist mucous membranes. NECK: Normal range of motion, supple without obvious mass or JVD. LUNGS: Breath sounds clear to auscultation bilaterally and equal. No wheezes rales or rhonchi. HEART: Regular rate and rhythm without murmurs, rubs or gallops. ABDOMEN: Soft, normoactive bowel sounds. No tenderness to palpation. No guarding, no rebound. No masses appreciated. EXTREMITIES: Normal range of motion, no pitting or edema. No clubbing or cyanosis. NEUROLOGICAL: Cranial nerves II through XII grossly intact. Normal speech, moving all extremities. PSYCH: Normal mood, normal affect. SKIN: Warm, Dry, normal turgor, no rashes or lesions noted. Course - Re-evaluation Re-evalutation: 12/13/16 00:33 Note: The patient herself stated that she thinks her brother does want to take care of him anymore and wants to get her some rehab program. The patient's brother has brought up concerns for acute opiate withdrawal. He states that the patient was seen by a home health care provider who was concerned about opiate withdrawal and thought that the patient needed to be sent to inpatient rehab. The patient's brother also states that the patient has been hospitalized recently at [facility] (1 week ago for a subacute stroke), [facility] for syncopal episodes (2 weeks ago), heart surgery at [facility] in September) . He reports that the patient had been evaluated for abdominal pain that had wanted to do a EGD and colonoscopy for possible ulcern but that the patient did not want to have those procedures done. He is concerned that she has continued to have intermittent abdominal pain. The patient denies fever. She was nauseated but has not vomited since being in the ER. The patient's abdomen is soft and without significant tenderness in the ER. CT of the abdomen shows no acute process. The CT does show resolving left inguinal hematoma which was probably the side of the cardiac catheterization prior to the CABG. CT clearly shows a parietal subacute stroke which the patient's brother tells me she was admitted for recently at [facility] 1 week ago. The patient has not followed up with her primary care physician. From an psychiatric point of view, the patient is calm and cooperative and is not hallucinating and does not have any delusions at this time. She does not appear to be in acute opiate withdrawal at this time. She does have some but she has no evidence of peritonitis chronic abdominal pain on exam. I have tried to reassure her about following through with the GI outpatient workup. I have changed her medicine from omeprazole to Protonix to see if that has any effect. I will give her nausea medicine as well. As far as the subacute stroke , she has had a recent admission for this. I think it would be a good idea for her to be evaluated by physical therapy and this could be done at home. She will require following up with her primary care physician to make this happen. It is unclear if she was evaluated by physical therapy for the stroke when she was hospitalized for this 1 week ago at [facility]. I have given her the number of 3 other primary care doctors affiliated with this hospital that would see her in a short time span. - Vital Signs Vital signs: Temp Pulse Resp BP Pulse Ox 98.5 F 78 20 128/65 H 97 12/13/16 00:40 12/13/16 00:40 12/13/16 00:40 12/13/16 00:40 12/13/16 00:40 - Laboratory Result Diagrams: 12/12/16 19:39 12/12/16 22:06 Laboratory results interpreted by me: 12/12/16 12/12/16 12/12/16 18:25 19:39 22:06 WBC 13.2 H MCH 26.4 L RDW 19.5 H Band Neutrophils % 1 L Abs Neuts (Manual) 9.4 H Potassium 3.4 L Glucose 133 H Total Bilirubin 2.2 H Direct Bilirubin 1.2 H Urine Protein 100 H Urine Glucose (UA) 50 H Urine Ketones TRACE H Urine Blood SMALL H Urine Urobilinogen 2.0 H Ur Leukocyte Esterase TRACE H Salicylates < 1.0 L Acetaminophen < 10 L - Diagnostic Test Radiology reviewed: Image reviewed, Reports reviewed - The head CT shows a subacute stroke. (The patient was hospitalized 1 week ago for stroke at [facility]) . CT of the abdomen shows no acute intra-abdominal process Discharge - Discharge Clinical Impression: Abdominal pain chronic Condition: Stable Disposition: HOME, SELF-CARE Additional Instructions: 1. Abdominal pain: You had a CAT scan in the abdomen today and it showed no acute intra-abdominal process. There was a resolving hematoma to the left groin which was probably from a cardiac catheterization prior to your heart surgery. In any event, the hematoma looked better. As far as your abdominal pain, Dr. Goodrich had thought you might be developing an ulcer and had recommended an EGD and a colonoscopy. I think this is a good idea and you should go through with it. I recommend you follow-up with Dr. Goodrich for reconsideration of this exam. Call his office this week. For the possibility of an ulcer: I would like you to stop the omeprazole, and start Protonix. I have written a prescription. I will prescribe a medicine for nausea as well. 2. Recent stroke: The CAT scan tonmaeve did show a subacute stroke (which means it occurred a few weeks ago). This is consistent with your hospitalization a week ago at [facility] when you were told about the stroke as well. You are already taking Plavix after the heart surgery and this is a blood thinner and I would continue this medicine. I would not recommend anything stronger at this point. I would like you to follow-up with your primary care doctor this week and have a physical therapy evaluation because of this subacute stroke. If you are unable to get into see your primary care doctor, I will provide the number of [address] Maria Victoria Navarro [address], [place] [address] [phone] Dr Arguelles Address: [address] [place] [address] , [place] [address] Dr Kamara Address: [address] [place] [address] , [place] [address] 3. Concerns for acute opiate withdrawal: I do not see any clinical evidence of this currently. 4. psychiatric:. Continue with your psychiatric medicines and follow-up with your psychiatrist. Thank you for choosing [facility] for your care. The examination and treatment you have received in the Emergency Department today has been rendered on an emergency basis only and is not intended to be a substitute for complete medical care. You should contact your follow-up physician as it is important that he or she examine you for any new or remaining problems. If given a copy of any lab tests or radiology reports, please bring them with you when you see your physician. If your problem worsens or new symptoms appear and you are unable to arrange prompt follow-up care, return to the Emergency Department. Prescriptions: Pantoprazole Sodium [Protonix] 20 mg PO DAILY #30 tablet. Promethazine HCl [Phenergan 25 mg Tablet] 25 mg PO Q6H PRN #15 tablet PRN Reason: Referrals: TREVON SKAGGS PA-C [Primary Care Provider] - Follow up as needed
[2016-12-13 01:47] VITALS: BP 128/65
--- NOTE | 2016-12-13 08:03 | EKG REPORT ---
SEVERITY:- ABNORMAL ECG - SINUS RHYTHM WITH PVC INFERIOR INFARCT, AGE INDETERMINATE LATERAL LEADS ARE ALSO INVOLVED : Confirmed by: Agustin Crawford MD 13-Dec-2016 08:03:16
== END 2016-12-13 00:40 | disposition home or self-care (01) ==
LOC: ER 18:10
DX: R10.9 Unspecified abdominal pain (principal); G89.29 Other chronic pain; K21.9 Gastro-esophageal reflux disease without esophagitis; R11.0 Nausea; I25.10 Atherosclerotic heart disease of native coronary artery without angina pectoris; I25.2 Old myocardial infarction; I10 Essential (primary) hypertension; J44.9 Chronic obstructive pulmonary disease, unspecified; E11.9 Type 2 diabetes mellitus without complications; F17.210 Nicotine dependence, cigarettes, uncomplicated; Z95.1 Presence of aortocoronary bypass graft; Z86.73 Personal history of transient ischemic attack (TIA), and cerebral infarction without residual deficits; Z88.8 Allergy status to other drugs, medicaments and biological substances; Z82.49 Family history of ischemic heart disease and other diseases of the circulatory system
CPT/HCPCS: 93005; 99284; 36415; 80307 ×4; 85025; 80053; 81001; 70450; 74176; 93010; J3490 ×4

== ENCOUNTER 2016-12-15 11:51 | Emergency (ER) | payer OTHER, MEDICAID ==
[2016-12-15 13:12] LABS: APPEARANCE,URINE CLEAR; BILIRUBIN,URINE NEGATIVE (NEGATIVE); GLUCOSE, URINE 150 mg/dL (NEGATIVE); KETONES,URINE NEGATIVE (NEGATIVE); LEUKOCYTE ESTERASE,URINE NEGATIVE (NEGATIVE); NITRITE,URINE NEGATIVE (NEGATIVE); PROTEIN,URINE 30 mg/dL (NEGATIVE); URINE SPECIFIC GRAVITY 1.009
[2016-12-15] MEDS ORDERED: DICYCLOMINE HCL INJ 20 MG/2 ML AMPULE IM ONE (13:17)
[2016-12-15 13:20] LABS: ABSOLUTE BASOPHILS # (AUTO) 0.1 10^3/uL (0.0-0.2); ABSOLUTE EOSINOPHILS # (AUTO) 0.1 10^3/uL (0.0-0.6); ABSOLUTE LYMPHOCYTES (AUTO) 1.9 10^3/uL (0.5-4.7); ABSOLUTE MONOCYTES (AUTO) 0.4 10^3/uL (0.1-1.4); ABSOLUTE NEUT (AUTO) 5.1 10^3/uL (1.7-8.2); BASOPHILS % (AUTO) 0.8 % (0-2); EOSINOPHILS % (AUTO) 0.9 % (0-6); HEMATOCRIT 36.3 % (36.0-47.0); HEMOGLOBIN 11.8 g/dL (12.0-15.5); HGB HCT DIFFERENCE -0.9; LYMPHOCYTES % (AUTO) 24.6 % (13-45); MEAN CORPUSCULAR HEMOGLOBIN 26.5 pg (27.0-33.4); MEAN CORPUSCULAR HGB CONC 32.6 g/dL (32.0-36.0); MEAN CORPUSCULAR VOLUME 81 fl (80-97); MONOCYTES % (AUTO) 5.4 % (3-13); RED BLOOD COUNT 4.46 10^6/uL (3.72-5.28); RED CELL DISTRIBUTION WIDTH 19.7 % (11.5-14.0); SEGMENTED NEUTROPHILS % (AUTO) 68.3 % (42-78); WHITE BLOOD COUNT 7.5 10^3/uL (4.0-10.5)
--- NOTE | 2016-12-15 13:25 | EKG REPORT ---
SEVERITY:- ABNORMAL ECG - SINUS TACHYCARDIA VENTRICULAR TRIGEMINY INFERIOR INFARCT, AGE INDETERMINATE LATERAL INFARCT, AGE INDETERMINATE CONSIDER POSTERIOR WALL INVOLVEMENT : Confirmed by: Smita Luque MD 15-Dec-2016 13:24:13
[2016-12-15 13:32] LABS: URINE BARBITURATES SCREEN NEGATIVE; URINE METHADONE SCREEN NEGATIVE; URINE OPIATES LOW UNCONFIRMED POSITIVE; URINE PHENCYCLIDINE SCREEN NEGATIVE
[2016-12-15 13:33] LABS: ALANINE AMINOTRANSFERASE 31 U/L (9-52); ALKALINE PHOSPHATASE 110 U/L (38-126); ANION GAP 15 (5-19); ASPARTATE AMINO TRANSFERASE 28 U/L (14-36); BILIRUBIN,DIRECT 0.9 mg/dL (0.0-0.4); BILIRUBIN,TOTAL 1.7 mg/dL (0.2-1.3); BLOOD UREA NITROGEN 8 mg/dL (7-20); CALCIUM 9.7 mg/dL (8.4-10.2); CARBON DIOXIDE 28 mmol/L (22-30); CHLORIDE 102 mmol/L (98-107); CREATININE RESULT 0.77 mg/dL (0.52-1.25); GLUCOSE 226 mg/dL (75-110); POTASSIUM 3.4 mmol/L (3.6-5.0); SODIUM 145.2 mmol/L (137-145); TOTAL PROTEIN 7.8 g/dL (6.3-8.2)
[2016-12-15 13:35] LABS: ALCOHOL < 10 mg/dL (NONE DETECTED)
--- NOTE | 2016-12-15 14:31 | ER Document Report ---
ED Psych Disorder / Suicide - General Information source: Patient, Emergency Med Personnel - [facility], [facility] Records TRAVEL OUTSIDE OF THE [place] IN LAST 30 DAYS: No - HPI Suicide Risk Factors: Lack of social support, No spouse, Substance abuse Situational problems related to: Other - chronic abd pain Normal mood: No Associated symptoms: Labile, Tearful Similar symptoms previously: Yes Recently seen / treated by doctor: Yes - 24 visits since Apr 2016 <NORMA HORAN - Last Filed: 12/15/16 14:13> <MADHU LUNA - Last Filed: 12/15/16 14:32> - General Chief Complaint: Psych Problem Stated Complaint: PSYCH EVAL Time Seen by Provider: 12/15/16 12:56 - HPI Notes: Is a 56-year-old female who presents via EMS after she made suicidal threats during a visit with [facility]. This is patient's 24th visit since April 2016. Patient most often visits for abdominal related complaints sometimes 2 or 3 times per day. Patient this afternoon states she did make the statements of overdosing on her pills, but denies wanting to do so. Patient states she was frustrated and made the comment. Patient states she does not want to by suicide, does not want to overdose on her pills, and does not have access to weapons. Patient denies prior suicide attempts. Patient states she is prescribed Paxil and gets up from her general practitioner. Contacted community development chemist program, Michael Turpin to review the visit and ensure follow-up. Left message requesting return contact. Patient is alert and oriented 4. Mood is labile with tearful affect. Patient denies suicidal/homicidal ideations, intent, plan, means. Patient denies A/VH; delusions not noted. Thought processes were perseverative on her stomach pain and requesting medication. Conversational speech was within normal limits for rate, tone, and prosody. Intellectual abilities were estimated within average range. Attention and focus were poor. Insight, judgment, impulse control are poor. Unspecified depressive disorder, per history Polysubstance abuse Patient is psychiatrically cleared for discharge. Patient is recommended to follow-up with integrated family services to assist her with her depressive type symptoms and possibly engage in outpatient counseling. She adamantly denies wanting to commit suicide. Patient does acknowledge she made a statement regarding overdose to the community development chemist, but states she said that out of frustration and did not mean it. Note during discussion with community development chemist prior to patient's arrival it was disclosed that the patient recanted her statement and denied wanting to by suicide. Assault with Dr. Armenta in regards to care and management of this patient. EDMD is in agreement with disposition and recommendations (NORMA HORAN) - Related Data Allergies/Adverse Reactions: haloperidol [From Haldol] Allergy (Verified 12/15/16 13:04) haloperidol lactate [From Haldol] Allergy (Verified 12/15/16 13:04) Past Medical History - General Information source: Patient, Emergency Med Personnel, [facility] Records - Social History Smoking Status: Current Every Day Smoker Chew tobacco use (# tins/day): No Frequency of alcohol use: None Drug Abuse: None Family History: Reviewed & Not Pertinent, CAD - Extensive heart disease in mother and brother with brother dying from complications of cardiac stent placement - Past Medical History Cardiac Medical History: Reports: Hx Coronary Artery Disease, Hx Heart Attack - x2, Hx Hypercholesterolemia, Hx Hypertension Pulmonary Medical History: Reports: Hx Bronchitis, Hx COPD Endocrine Medical History: Reports: Hx Diabetes Mellitus Type 2 Renal/ Medical History: Reports: Hx Kidney Stones. Denies: Hx Peritoneal Dialysis GI Medical History: Reports: Hx Gastroesophageal Reflux Disease Psychiatric Medical History: Reports: Hx Bipolar Disorder, Hx Depression, Hx Schizophrenia Past Surgical History: Reports: Hx Cardiac Catheterization, Hx Cardiac Surgery - stents, CABG 09/2016, Hx Cholecystectomy, Hx Coronary Stent - x2 - Immunizations Hx Diphtheria, Pertussis, Tetanus Vaccination: Yes <NORMA HORAN - Last Filed: 12/15/16 14:13> Course - Laboratory Result Diagrams: 12/15/16 12:40 12/15/16 12:40 <NORMA HORAN - Last Filed: 12/15/16 14:13> - Laboratory Result Diagrams: 12/15/16 12:40 12/15/16 12:40 <MADHU LUNA - Last Filed: 12/15/16 14:32> - Laboratory Laboratory results interpreted by me: 12/15/16 12/15/16 12/15/16 12:40 12:40 12:40 Hgb 11.8 L MCH 26.5 L RDW 19.7 H Sodium 145.2 H Potassium 3.4 L Glucose 226 H Total Bilirubin 1.7 H Direct Bilirubin 0.9 H Urine Protein 30 H Urine Glucose (UA) 150 H Urine Urobilinogen 2.0 H Salicylates < 1.0 L Acetaminophen < 10 L Discharge <NORMA HORAN - Last Filed: 12/15/16 14:13> <MADHU LUNA - Last Filed: 12/15/16 14:32> - Discharge Clinical Impression: Depression Qualifiers: Depression Type: unspecified Qualified Code(s): F32.9 - Major depressive disorder, single episode, unspecified Condition: Stable Disposition: HOME, SELF-CARE Additional Instructions: Depression Your evaluation reveals that you have mental depression. While symptoms may be vague, they often include disturbance of sleep, fatigue, loss of appetite , and general loss of interest in life. While depression may be a side effect of drugs, or a reaction to a major change in your life, many cases have no known cause. If depression is acute, and related to a major loss in your life, you can expect it to clear completely with time. If you have been depressed a long time , are prone to repeated bouts of depression or low mood, or have been thinking of suicide, get help. Depression can be treated with anti-depressant medication and counselling. Long-term depression will often take a few weeks to clear, even with appropriate medication. Follow-up care is important. Contact your physician, the hospital emergency center, crisis line, or your counsellor if you are losing control or having self-destructive thoughts. Please follow-up with integrated family services and schedule an appointment for therapy. You have adamantly denied suicidal ideations. Your brother is here to safely accompany you home. Please also follow-up with the community development chemist program. Referrals: TREVON SKAGGS PA-C [Primary Care Provider] - Follow up as needed [facility] [Provider Group] - 12/15/16 (Please call today and schedule your appointment at your convenience.)
[2016-12-15 14:48] VITALS: BP 169/112
--- NOTE | 2016-12-15 18:20 | EKG REPORT ---
SEVERITY:- ABNORMAL ECG - SINUS TACHYCARDIA MULTIFORM VENTRICULAR PREMATURE COMPLEXES INFERIOR INFARCT, AGE INDETERMINATE CONSIDER POSTERIOR WALL INVOLVEMENT : Confirmed by: Smita Luque MD 15-Dec-2016 18:20:02
--- NOTE | 2016-12-16 10:37 | ER Document Report ---
ED General - General Chief Complaint: Psych Problem Stated Complaint: PSYCH EVAL Time Seen by Provider: 12/15/16 12:56 TRAVEL OUTSIDE OF THE [place] IN LAST 30 DAYS: No - HPI Patient complains to provider of: Psychiatric evaluation Notes: Patient coming in for psychiatric evaluation. Patient was seen by EMS multiple times a day upon last evaluation according to EMS providers patient stated that she was will take all of her pills and overdose. Due to this statement EMS transported patient for psychiatric evaluation. Upon my evaluation patient is lying on the floor crying. Patient has a issue with chronic abdominal pain and is on chronic opioid therapy. Patient states "if I wanted to kill myself by taking all my pills other than that years ago". Patient at this time denies any suicidal homicidal ideation. Patient is requesting pain medication. Denies fevers chills nausea vomiting. Patient is able to get up off the floor by herself and placed herself back onto the ER stretcher. - Related Data Allergies/Adverse Reactions: haloperidol [From Haldol] Allergy (Verified 12/15/16 13:04) haloperidol lactate [From Haldol] Allergy (Verified 12/15/16 13:04) Past Medical History - General Information source: Patient, Emergency Med Personnel, [facility] Records - Social History Smoking Status: Current Every Day Smoker Chew tobacco use (# tins/day): No Frequency of alcohol use: None Drug Abuse: None Family History: Reviewed & Not Pertinent, CAD - Extensive heart disease in mother and brother with brother dying from complications of cardiac stent placement - Past Medical History Cardiac Medical History: Reports: Hx Coronary Artery Disease, Hx Heart Attack - x2, Hx Hypercholesterolemia, Hx Hypertension Pulmonary Medical History: Reports: Hx Bronchitis, Hx COPD Endocrine Medical History: Reports: Hx Diabetes Mellitus Type 2 Renal/ Medical History: Reports: Hx Kidney Stones. Denies: Hx Peritoneal Dialysis GI Medical History: Reports: Hx Gastroesophageal Reflux Disease Psychiatric Medical History: Reports: Hx Bipolar Disorder, Hx Depression, Hx Schizophrenia Past Surgical History: Reports: Hx Cardiac Catheterization, Hx Cardiac Surgery - stents, CABG 09/2016, Hx Cholecystectomy, Hx Coronary Stent - x2 - Immunizations Hx Diphtheria, Pertussis, Tetanus Vaccination: Yes Review of Systems - Review of Systems Constitutional: No symptoms reported EENT: No symptoms reported Cardiovascular: No symptoms reported Respiratory: No symptoms reported Gastrointestinal: Abdominal pain Genitourinary: No symptoms reported Female Genitourinary: No symptoms reported Musculoskeletal: No symptoms reported Skin: No symptoms reported Hematologic/Lymphatic: No symptoms reported Neurological/Psychological: Suicidal ideation -: Yes All other systems reviewed and negative Physical Exam - Vital signs Vitals: Temp Pulse Resp BP 98.1 F 91 18 169/112 H 12/15/16 12:57 12/15/16 12:57 12/15/16 12:57 12/15/16 12:57 Interpretation: Normal - General General appearance: Appears well, Alert - HEENT Head: Normocephalic, Atraumatic Eyes: Normal Pupils: PERRL - Respiratory Respiratory status: No respiratory distress Chest status: Nontender Breath sounds: Normal Chest palpation: Normal - Cardiovascular Rhythm: Regular Heart sounds: Normal auscultation Murmur: No - Abdominal Inspection: Normal Distension: No distension Bowel sounds: Normal Tenderness: Nontender Organomegaly: No organomegaly - Back Back: Normal, Nontender - Extremities General upper extremity: Normal inspection, Nontender, Normal color, Normal ROM , Normal temperature General lower extremity: Normal inspection, Nontender, Normal color, Normal ROM , Normal temperature, Normal weight bearing. No: Jamie's sign - Neurological Neuro grossly intact: Yes Cognition: Normal Orientation: AAOx4 [place] Coma Scale Eye Opening: Spontaneous [place]ron Coma Scale Verbal: Oriented [place] Coma Scale Motor: Obeys Commands [place] Coma Scale Total: 15 Speech: Normal Motor strength normal: LUE, RUE, LLE, RLE Sensory: Normal - Psychological Associated symptoms: Normal affect, Normal mood - Skin Skin Temperature: Warm Skin Moisture: Dry Skin Color: Normal Course - Re-evaluation Re-evalutation: 12/16/16 10:33 Patient was seen for psychiatric issues. Patient deniesAny homicidal suicidal ideation at this time. We will have the patient speak to our psychiatric team. 12/21/16 07:44 Due to a electronic software malfunctioned this chart was dictated at a later date. - Vital Signs Vital signs: Temp Pulse Resp BP Pulse Ox 98.1 F 91 18 169/112 H 12/15/16 12:57 12/15/16 12:57 12/15/16 12:57 12/15/16 12:57 - Laboratory Result Diagrams: 12/15/16 12:40 12/15/16 12:40 Laboratory results interpreted by me: 12/15/16 12/15/16 12/15/16 12:40 12:40 12:40 Hgb 11.8 L MCH 26.5 L RDW 19.7 H Sodium 145.2 H Potassium 3.4 L Glucose 226 H Total Bilirubin 1.7 H Direct Bilirubin 0.9 H Urine Protein 30 H Urine Glucose (UA) 150 H Urine Urobilinogen 2.0 H Salicylates < 1.0 L Acetaminophen < 10 L Discharge - Discharge Clinical Impression: Depression Qualifiers: Depression Type: unspecified Qualified Code(s): F32.9 - Major depressive disorder, single episode, unspecified Condition: Stable Disposition: HOME, SELF-CARE Additional Instructions: Depression Your evaluation reveals that you have mental depression. While symptoms may be vague, they often include disturbance of sleep, fatigue, loss of appetite , and general loss of interest in life. While depression may be a side effect of drugs, or a reaction to a major change in your life, many cases have no known cause. If depression is acute, and related to a major loss in your life, you can expect it to clear completely with time. If you have been depressed a long time , are prone to repeated bouts of depression or low mood, or have been thinking of suicide, get help. Depression can be treated with anti-depressant medication and counselling. Long-term depression will often take a few weeks to clear, even with appropriate medication. Follow-up care is important. Contact your physician, the hospital emergency center, crisis line, or your counsellor if you are losing control or having self-destructive thoughts. Please follow-up with [facility] and schedule an appointment for therapy. You have adamantly denied suicidal ideations. Your brother is here to safely accompany you home. Please also follow-up with the community quantitative consultant program. Referrals: [facility] [Provider Group] - 12/15/16 (Please call today and schedule your appointment at your convenience.) TREVON SKAGGS PA-C [Primary Care Provider] - Follow up as needed
== END 2016-12-15 14:53 | disposition home or self-care (01) ==
LOC: ER 11:51
DX: F32.9 Major depressive disorder, single episode, unspecified (principal); R10.9 Unspecified abdominal pain; G89.29 Other chronic pain; Z79.891 Long term (current) use of opiate analgesic; I25.10 Atherosclerotic heart disease of native coronary artery without angina pectoris; I10 Essential (primary) hypertension; I25.2 Old myocardial infarction; E11.9 Type 2 diabetes mellitus without complications; J44.9 Chronic obstructive pulmonary disease, unspecified; F17.200 Nicotine dependence, unspecified, uncomplicated; Z88.8 Allergy status to other drugs, medicaments and biological substances; Z87.442 Personal history of urinary calculi; Z95.1 Presence of aortocoronary bypass graft; Z95.5 Presence of coronary angioplasty implant and graft; Z87.19 Personal history of other diseases of the digestive system
CPT/HCPCS: 93005; 99285; 96372; 36415; 80307 ×4; 85025; 80053; 81001; 93010; J0500

== ENCOUNTER 2016-12-18 10:56 | Emergency (ER) | payer MEDICAID ==
[2016-12-18 11:04] VITALS: BP 126/79
--- NOTE | 2016-12-18 11:05 | ER Document Report ---
ED General - General Stated Complaint: CHEST PAIN Time Seen by Provider: 12/18/16 11:01 Notes: 56-year-old female extensive cardiac history who is been seen here multiple times since her last coronary artery bypass presents with complaints of chest pain. Patient notes she was walking and began having chest pain, EMS was called nitro paste was placed and patient notes the symptoms resolved and that she wants to go home TRAVEL OUTSIDE OF THE [place] IN LAST 30 DAYS: No - HPI Onset: Just prior to arrival Onset/Duration: Sudden Quality of pain: Achy Severity: Mild Pain Level: Denies - Currently chest pain-free Associated symptoms: Chest pain Exacerbated by: Walking Relieved by: Denies Similar symptoms previously: Yes Recently seen / treated by doctor: Yes - Related Data Allergies/Adverse Reactions: haloperidol [From Haldol] Allergy (Verified 12/15/16 13:04) haloperidol lactate [From Haldol] Allergy (Verified 12/15/16 13:04) Past Medical History - Social History Smoking Status: Current Every Day Smoker Cigarette use (# per day): Yes Chew tobacco use (# tins/day): No Smoking Education Provided: No Family History: Reviewed & Not Pertinent, CAD - Extensive heart disease in mother and brother with brother dying from complications of cardiac stent placement - Past Medical History Cardiac Medical History: Reports: Hx Coronary Artery Disease, Hx Heart Attack - x2, Hx Hypercholesterolemia, Hx Hypertension Pulmonary Medical History: Reports: Hx Bronchitis, Hx COPD Endocrine Medical History: Reports: Hx Diabetes Mellitus Type 2 Renal/ Medical History: Reports: Hx Kidney Stones. Denies: Hx Peritoneal Dialysis GI Medical History: Reports: Hx Gastroesophageal Reflux Disease Psychiatric Medical History: Reports: Hx Bipolar Disorder, Hx Depression, Hx Schizophrenia Past Surgical History: Reports: Hx Cardiac Catheterization, Hx Cardiac Surgery - stents, CABG 09/2016, Hx Cholecystectomy, Hx Coronary Stent - x2 - Immunizations Hx Diphtheria, Pertussis, Tetanus Vaccination: Yes Review of Systems - Review of Systems Notes: REVIEW OF SYSTEMS: CONSTITUTIONAL : Denies fever, chills, or sweats. Denies recent illness. EENT: Denies eye, ear, throat, or mouth pain or symptoms. Denies nasal or sinus congestion or discharge. Denies throat, tongue, or mouth swelling or difficulty swallowing. CARDIOVASCULAR: Admits to chest pain which has since resolved. RESPIRATORY: Denies cough, cold, or chest congestion. Denies shortness of breath, difficulty breathing, or wheezing. GASTROINTESTINAL: Denies abdominal pain or distention. Denies nausea, vomiting , or diarrhea. Denies blood in vomitus, stools, or per rectum. Denies black, tarry stools. Denies constipation. GENITOURINARY: Denies difficulty urinating, painful urination, burning, frequency, blood in urine, or discharge. FEMALE GENITOURINARY: Denies vaginal bleeding, heavy or abnormal periods, irregular periods. Denies vaginal discharge or odor. MUSCULOSKELETAL: Denies back or neck pain or stiffness. Denies joint pain or swelling. SKIN: Denies rash, lesions or sores. HEMATOLOGIC : Denies easy bruising or bleeding. LYMPHATIC: Denies swollen, enlarged glands. NEUROLOGICAL: Denies confusion or altered mental status. Denies passing out or loss of consciousness. Denies dizziness or lightheadedness. Denies headache. Denies weakness or paralysis or loss of use of either side. Denies problems with gait or speech. Denies sensory loss, numbness, or tingling. Denies seizures. PSYCHIATRIC: Denies anxiety or stress. Denies depression, suicidal ideation, or homicidal ideation. ALL OTHER SYSTEMS REVIEWED AND NEGATIVE. PHYSICAL EXAMINATION: GENERAL: Well-appearing, well-nourished and in no acute distress. HEAD: Atraumatic, normocephalic. EYES: Pupils equal round and reactive to light, extraocular movements intact, conjunctiva are normal. ENT: Nares patent, oropharynx clear without exudates. Moist mucous membranes. NECK: Normal range of motion, supple without lymphadenopathy LUNGS: Breath sounds clear to auscultation bilaterally and equal. No wheezes rales or rhonchi. HEART: Regular rate and rhythm without murmurs ABDOMEN: Soft, nontender, nondistended abdomen. No guarding, no rebound. No masses appreciated. Female : deferred Musculoskeletal: Normal range of motion, no pitting or edema. No cyanosis. NEUROLOGICAL: Cranial nerves grossly intact. Normal speech, normal gait. Normal sensory, motor exams PSYCH: Normal mood, normal affect. SKIN: Warm, Dry, normal turgor, no rashes or lesions noted. Dictation was performed using [employer] voice recognition software Physical Exam - Vital signs Vitals: Temp Pulse BP Pulse Ox 98.2 F 83 126/79 H 94 12/18/16 11:02 12/18/16 11:02 12/18/16 11:02 12/18/16 11:02 Course - Re-evaluation Re-evalutation: 12/18/16 11:01 Patient on arrival to the emergency department states she wishes to leave does not want to be seen. Given that she is on our promises, I did evaluate her medical screening examination was performed. I did explain to the patient that I believe she needs to stay for further evaluation and care lab work EKG. She refuses. I begged her and explained to her my concerns,, patient was actually seen at [facility] just 2 days prior with similar chest pain concerns. Unfortunately she does not wish to stay does not wish to have any evaluation performed states she has been stuck too many times and does not want any further evaluation I will therefore let her leave AGAINST MEDICAL ADVICE which I believe is a terrible idea After performing a Medical Screening Examination, I spoke with the patient at length in regards to leaving the hospital against medical advice. I do not believe the patient should leave but the patient is alert oriented x4, understands the risks and benefits of staying and leaving including disability and . Pt understands that she can return at any time for further care and is more than welcome to do so. Pt verbalizes this understanding. - Vital Signs Vital signs: Temp Pulse Resp BP Pulse Ox 98.2 F 83 126/79 H 94 12/18/16 11:02 12/18/16 11:02 12/18/16 11:02 12/18/16 11:02 Discharge - Discharge Clinical Impression: Chest pain Condition: Fair Disposition: AGAINST MEDICAL ADVICE Instructions: Chest Wall Pain ([facility]) Additional Instructions: Please return immediately if there are any other concerns we will gladly see you at any time
== END 2016-12-18 11:07 | disposition left against medical advice (07) ==
LOC: ER 10:56
DX: R07.9 Chest pain, unspecified (principal); F17.210 Nicotine dependence, cigarettes, uncomplicated; E11.9 Type 2 diabetes mellitus without complications; J44.9 Chronic obstructive pulmonary disease, unspecified; I25.10 Atherosclerotic heart disease of native coronary artery without angina pectoris; E78.00 Pure hypercholesterolemia, unspecified; I11.0 Hypertensive heart disease with heart failure; Z95.1 Presence of aortocoronary bypass graft; I25.2 Old myocardial infarction; Z87.442 Personal history of urinary calculi; Z90.49 Acquired absence of other specified parts of digestive tract
CPT/HCPCS: 99284

== ENCOUNTER 2016-12-29 14:26 | Emergency (ER) | payer MEDICAID ==
--- NOTE | 2016-12-29 15:21 | EKG REPORT ---
SEVERITY:- ABNORMAL ECG - SINUS RHYTHM INFERIOR INFARCT, AGE INDETERMINATE LATERAL INFARCT, AGE INDETERMINATE CONSIDER POSTERIOR WALL INVOLVEMENT PROLONGED QT INTERVAL : Confirmed by: Ermias Smith 29-Dec-2016 15:21:23
== END 2016-12-29 17:43 | disposition left against medical advice (07) ==
LOC: ER 14:26
DX: Z53.21 Procedure and treatment not carried out due to patient leaving prior to being seen by health care provider (principal)
CPT/HCPCS: 93005; 93010

== ENCOUNTER 2017-01-13 04:39 | Emergency (ER) | payer MEDICAID, OTHER ==
[2017-01-13] MEDS ORDERED: IPRATROPIUM/ALBUTEROL 0.5-2.5 MG/3 ML AMPUL NEB ONE (04:50)
[2017-01-13] MEDS ORDERED: ONDANSETRON HCL INJ/PF 4 MG/2 ML SDV IV ONE (04:55)
--- NOTE | 2017-01-13 04:55 | ER Document Report ---
ED Cardiac - General Mode of Arrival: Medic Information source: Patient, Emergency Med Personnel TRAVEL OUTSIDE OF THE [place] IN LAST 30 DAYS: No - HPI Patient complains to provider of: Chest pain <SALAZAR CHINCHILLA - Last Filed: 01/13/17 06:24> <KEN GALLEGOS - Last Filed: 01/13/17 13:58> - General Stated Complaint: CHEST PAIN Time Seen by Provider: 01/13/17 04:44 - HPI Notes: 56-year-old female with multiple medical problems status post CABG 12 weeks ago presents with chest pain she states awoke her from sleep a couple hours ago. She points just above the xiphoid region. States it is sharp and nonradiating with associated nausea. She is coughing significantly but states this is not unusual. She does smoke. Some shortness of breath is associated. Cough has been nonproductive. Does not note any alleviating or exacerbating symptoms. She received aspirin by EMS as well as nitroglycerin which apparently caused some hypotension but was some fluids this improved and she received another nitroglycerin without improvement. (SALAZAR CHINCHILLA) - Related Data Allergies/Adverse Reactions: haloperidol [From Haldol] Allergy (Verified 12/29/16 14:30) haloperidol lactate [From Haldol] Allergy (Verified 12/29/16 14:30) Past Medical History - Social History Smoking Status: Current Every Day Smoker Family History: Reviewed & Not Pertinent, CAD - Extensive heart disease in mother and brother with brother dying from complications of cardiac stent placement - Past Medical History Cardiac Medical History: Reports: Hx Coronary Artery Disease, Hx Heart Attack - x2, Hx Hypercholesterolemia, Hx Hypertension Pulmonary Medical History: Reports: Hx Bronchitis, Hx COPD Endocrine Medical History: Reports: Hx Diabetes Mellitus Type 2 Renal/ Medical History: Reports: Hx Kidney Stones. Denies: Hx Peritoneal Dialysis GI Medical History: Reports: Hx Gastroesophageal Reflux Disease Psychiatric Medical History: Reports: Hx Bipolar Disorder, Hx Depression, Hx Schizophrenia Past Surgical History: Reports: Hx Cardiac Catheterization, Hx Cardiac Surgery - stents, CABG 09/2016, Hx Cholecystectomy, Hx Coronary Stent - x2 - Immunizations Hx Diphtheria, Pertussis, Tetanus Vaccination: Yes <SALAZAR CHINCHILLA - Last Filed: 01/13/17 06:24> Review of Systems - Review of Systems -: Yes All other systems reviewed and negative <RENÉESALAZAR Divina - Last Filed: 01/13/17 06:24> Physical Exam <RENÉESALAZAR Murcia - Last Filed: 01/13/17 06:24> <KEN GALLEGOS - Last Filed: 01/13/17 13:58> - Vital signs Vitals: Resp 17 01/13/17 04:48 - Notes Notes: Physical Exam: GENERAL: VS as per nursing doc. Well-appearing, well-nourished and in mild distress with psychomotor agitation HEAD: Atraumatic, normocephalic. EYES: Sclera anicteric, no conjunctival injection or discharge. ENT: Nares patent, oropharynx clear without exudates. Moist mucous membranes. NECK: Supple without lymphadenopathy. No JVD LUNGS: Decreased breath sounds bilaterally with fine basilar crackles and mild wheezing with scattered rhonchi. HEART: Normal S1S2. Regular rate and rhythm without murmurs. Equal peripheral pulses. Tenderness over the lower sternum which is questionably reproducible but at the location the patient has discomfort. ABDOMEN: Soft, mild epigastric tenderness. EXTREMITIES: Normal range of motion. No calf tenderness. Negative Homans. 1+ symmetrical pedal edema. NEUROLOGICAL: Normal speech. No notable sensory or motor abnormality. Nonfocal. PSYCH: Slightly anxious, cooperative. SKIN: Warm, dry, no cyanosis. Cap refill < 2 sec. (RENÉESALAZAR) Course - Laboratory Result Diagrams: 01/13/17 04:45 01/13/17 04:45 - EKG Interpretation by Sc Rate: Tachycardia - Heart rate 103. Neuro QRS complex. Sinus tachycardia with ST flattening and some slight depression more laterally. This does appear consistent with 12/29/2016 EKG though slightly more prominent in 1 and aVL. Rate has increased compared to that. - Transfer of Care Care transferred to following provider: Dr. Gallegos <SALAZAR CHINCHILLA - Last Filed: 01/13/17 06:24> - Laboratory Result Diagrams: 01/13/17 06:40 01/13/17 04:45 - Diagnostic Test Radiology reviewed: Reports reviewed <KEN GALLEGOS - Last Filed: 01/13/17 13:58> - Re-evaluation Re-evalutation: 01/13/17 10:51 Patient with downtrending troponin. Currently chest pain-free. No dyspnea or hypoxia. No clinical evidence at this time for her failure. Patient will be discharged home and is to follow-up with her recreational counselor. (KEN GALLEGOS) - Vital Signs Vital signs: Temp Pulse Resp BP Pulse Ox 97.9 F 18 145/88 H 98 01/13/17 11:00 01/13/17 11:00 01/13/17 11:00 01/13/17 11:00 - Laboratory Laboratory results interpreted by me: 01/13/17 01/13/17 01/13/17 04:45 06:40 06:40 Hgb 10.4 L Hct 32.8 L MCV 76 L D MCH 24.2 L MCHC 31.9 L RDW 19.9 H PT 16.4 H Sodium 145.3 H Potassium 3.4 L Chloride 109 H Glucose 133 H Direct Bilirubin 0.8 H Albumin 3.3 L Discharge <SALAZAR CHINCHILLA - Last Filed: 01/13/17 06:24> <KEN GALLEGOS - Last Filed: 01/13/17 13:58> - Discharge Clinical Impression: Chest pain Qualifiers: Chest pain type: unspecified Qualified Code(s): R07.9 - Chest pain, unspecified Condition: Stable Disposition: HOME, SELF-CARE Instructions: Chest Pain of Unclear Cause ([facility]) Additional Instructions: Please follow-up with your recreational counselor this week.
[2017-01-13] MEDS ORDERED: MORPHINE SULFATE 10 MG/ML INJ IV ONE (04:56)
[2017-01-13 05:22] LABS: ALANINE AMINOTRANSFERASE 27 U/L (9-52); ALBUMIN 3.3 g/dL (3.5-5.0); ALKALINE PHOSPHATASE 104 U/L (38-126); ANION GAP 14 (5-19); ASPARTATE AMINO TRANSFERASE 17 U/L (14-36); BILIRUBIN,DIRECT 0.8 mg/dL (0.0-0.4); BILIRUBIN,TOTAL 1.3 mg/dL (0.2-1.3); BLOOD UREA NITROGEN 9 mg/dL (7-20); CARBON DIOXIDE 22 mmol/L (22-30); CHLORIDE 109 mmol/L (98-107); CREATINE KINASE 46 U/L (30-135); CREATININE RESULT 0.92 mg/dL (0.52-1.25); GLUCOSE 133 mg/dL (75-110); POTASSIUM 3.4 mmol/L (3.6-5.0); SODIUM 145.3 mmol/L (137-145); TOTAL PROTEIN 6.5 g/dL (6.3-8.2)
[2017-01-13 05:36] LABS: CREATINE KINASE MB 1.66 ng/mL (<4.55)
[2017-01-13 05:41] LABS: TROPONIN I 0.035 ng/mL
[2017-01-13 06:54] LABS: ABSOLUTE EOSINOPHILS # (AUTO) 0.1 10^3/uL (0.0-0.6); ABSOLUTE LYMPHOCYTES (AUTO) 1.8 10^3/uL (0.5-4.7); ABSOLUTE MONOCYTES (AUTO) 0.8 10^3/uL (0.1-1.4); ABSOLUTE NEUT (AUTO) 7.5 10^3/uL (1.7-8.2); BASOPHILS % (AUTO) 0.4 % (0-2); EOSINOPHILS % (AUTO) 1.1 % (0-6); HEMATOCRIT 32.8 % (36.0-47.0); HEMOGLOBIN 10.4 g/dL (12.0-15.5); HGB HCT DIFFERENCE -1.6; LYMPHOCYTES % (AUTO) 17.8 % (13-45); MEAN CORPUSCULAR HEMOGLOBIN 24.2 pg (27.0-33.4); MEAN CORPUSCULAR HGB CONC 31.9 g/dL (32.0-36.0); MONOCYTES % (AUTO) 7.6 % (3-13); RED BLOOD COUNT 4.31 10^6/uL (3.72-5.28); RED CELL DISTRIBUTION WIDTH 19.9 % (11.5-14.0); SEGMENTED NEUTROPHILS % (AUTO) 73.1 % (42-78); WHITE BLOOD COUNT 10.3 10^3/uL (4.0-10.5)
[2017-01-13 07:05] LABS: MEAN CORPUSCULAR VOLUME 76 fl (80-97); PROTHROMBIN TIME 16.4 SEC (11.4-15.4)
--- NOTE | 2017-01-13 08:40 | RADIOLOGY REPORT (SQ) ---
EXAM DESCRIPTION: CHEST SINGLE VIEW COMPLETED DATE/TIME: 01/13/2017 5:12 am REASON FOR STUDY: CP COMPARISON: CTA chest 11/23/2016 AP chest 12/08/2016, 12/09/2016 EXAM PARAMETERS: NUMBER OF VIEWS: One view. TECHNIQUE: Single frontal radiographic view of the chest acquired. RADIATION DOSE: NA LIMITATIONS: None. FINDINGS: LUNGS AND PLEURA: Mild pulmonary vascular prominence with few Rahul lines, question fluid overload or very mild congestive failure. No pleural effusions. No pneumothorax. MEDIASTINUM AND HILAR STRUCTURES: No masses. Contour normal. HEART AND VASCULAR STRUCTURES: Stable borderline cardiomegaly and old sternotomy for CABG. BONES: No acute findings. HARDWARE: Clips post cholecystectomy OTHER: No other significant finding. IMPRESSION: Very mild pulmonary vascular prominence, few Rahul lines. Question fluid overload or c ongestive failure TECHNICAL DOCUMENTATION: JOB ID: [id number] [employer]- All Rights Reserved
--- NOTE | 2017-01-13 09:34 | EKG REPORT ---
SEVERITY:- ABNORMAL ECG - SINUS TACHYCARDIA INFERIOR INFARCT, AGE INDETERMINATE LATERAL INFARCT, AGE INDETERMINATE : Confirmed by: Ermias Smith 13-Jan-2017 09:34:13
[2017-01-13 11:11] VITALS: BP 145/88
== END 2017-01-13 11:11 | disposition home or self-care (01) ==
LOC: ER 04:39
DX: R07.9 Chest pain, unspecified (principal); R11.0 Nausea; R05 Cough; Z95.1 Presence of aortocoronary bypass graft; F17.200 Nicotine dependence, unspecified, uncomplicated
CPT/HCPCS: 93005; 94640; 99285; 96374; 96375; 36415; 82553; 82550; 85025; 85610; 80053; 84484; 71010; 93010; J2270; J2405; J7620

== ENCOUNTER 2017-01-14 02:58 | Emergency (ER) | payer MEDICAID ==
[2017-01-14] MEDS ORDERED: DICYCLOMINE HCL INJ 20 MG/2 ML AMPULE IM ONE (03:13)
[2017-01-14] MEDS ORDERED: PROMETHAZINE HCL INJ 25 MG/1 ML VIAL IM ONE (03:14)
--- NOTE | 2017-01-14 03:22 | ER Document Report ---
ED General - General Chief Complaint: Abdominal Pain Stated Complaint: ABDOMINAL PAIN Time Seen by Provider: 01/14/17 03:05 Mode of Arrival: Medic Information source: Patient TRAVEL OUTSIDE OF THE U.S. IN LAST 30 DAYS: No - HPI Notes: 56-year-old female with multiple medical problems status post CABG 12 weeks ago presents with multiple complaints including chronic chest and abdominal pain. She states this is been ongoing. She has not found relief despite being seen here last night as well at [facility] today. Actually she was apparently on her way home and stopped and called EMS to bring her to the hospital here. She has a hard time describing the pain approaches to her lower sternum. Abdominal pain is nondescript and just states it hurts and she has severe nausea with it. Reports a chronic cough does not note any alleviating or exacerbating symptoms. Denies any other new symptoms otherwise. No suicidal ideation. Denies hallucinations. - Related Data Allergies/Adverse Reactions: haloperidol [From Haldol] Allergy (Verified 12/29/16 14:30) haloperidol lactate [From Haldol] Allergy (Verified 12/29/16 14:30) Past Medical History - Social History Smoking Status: Never Smoker Family History: Reviewed & Not Pertinent, CAD - Extensive heart disease in mother and brother with brother dying from complications of cardiac stent placement Patient has suicidal ideation: No Patient has homicidal ideation: No - Past Medical History Cardiac Medical History: Reports: Hx Coronary Artery Disease, Hx Heart Attack - x2, Hx Hypercholesterolemia, Hx Hypertension Pulmonary Medical History: Reports: Hx Bronchitis, Hx COPD Endocrine Medical History: Reports: Hx Diabetes Mellitus Type 2 Renal/ Medical History: Reports: Hx Kidney Stones. Denies: Hx Peritoneal Dialysis GI Medical History: Reports: Hx Gastroesophageal Reflux Disease Psychiatric Medical History: Reports: Hx Bipolar Disorder, Hx Depression, Hx Schizophrenia Past Surgical History: Reports: Hx Cardiac Catheterization, Hx Cardiac Surgery - stents, CABG 09/2016, Hx Cholecystectomy, Hx Coronary Stent - x2, Hx Thyroid Surgery, Hx Tonsillectomy, Hx Tubal Ligation, Hx Urinary Tract Surgery, Hx Vascular Surgery - Immunizations Hx Diphtheria, Pertussis, Tetanus Vaccination: Yes Review of Systems - Review of Systems Notes: All other symptoms reviewed and negative for acute change Physical Exam - Vital signs Vitals: Resp Pulse Ox 18 99 01/14/17 03:08 01/14/17 03:08 - Notes Notes: GENERAL: VS as per nursing doc. Well-appearing, well-nourished and no distress with psychomotor agitation HEAD: Atraumatic, normocephalic. EYES: Sclera anicteric, no conjunctival injection or discharge. ENT: Nares patent, oropharynx clear without exudates. Moist mucous membranes. NECK: Supple without lymphadenopathy. LUNGS: Coarse but equal breath sounds bilaterally HEART: Normal S1S2. Regular rhythm without murmurs. Equal peripheral pulses. Tenderness over the lower sternum which is questionably reproducible but at the location the patient has discomfort. Tachycardic with rate 104 ABDOMEN: Soft, mild epigastric tenderness. No guarding or rebound. EXTREMITIES: Normal range of motion. No calf tenderness. Negative Homans. 1+ symmetrical pedal edema. NEUROLOGICAL: Normal speech. No notable sensory or motor abnormality. Nonfocal. PSYCH: Slightly anxious, cooperative with examination. SKIN: Warm, dry, no cyanosis. Cap refill < 2 sec. Course - Re-evaluation Re-evalutation: 01/14/17 05:26 I reviewed the patient's charts from [facility]. Apparently she was a in the waiting room and fell out of the chair. They mentioned that they washed it on video and that she cushioned herself after looking around and falling forward. She was written a prescription for [place] for 15 tablets there apparently there was some unhappiness from the patient with the amount of pain medication. She did have a CT scan performed which showed some mild interval changes including a little bit of increased fluid adjacent to the sternum. While reviewing this I was informed the patient has walked out of the emergency department here. She was observed ambulating without any difficulty. All vomiting I observed here was posttussive in nature. Patient left without me being able to discuss any further with her which was at her request to leave. - Vital Signs Vital signs: Temp Pulse Resp BP Pulse Ox 98.1 F 115 H 26 H 176/100 H 92 01/14/17 03:12 01/14/17 03:12 01/14/17 05:01 01/14/17 05:01 01/14/17 05:01 - Laboratory Result Diagrams: 01/14/17 03:15 01/14/17 03:52 Laboratory results interpreted by me: 01/14/17 01/14/17 03:15 03:52 WBC 11.2 H Hgb 11.3 L Hct 35.5 L MCV 76 L MCH 24.2 L RDW 19.9 H Seg Neutrophils % 80.4 H Absolute Neutrophils 9.0 H Sodium 147.6 H Glucose 223 H Total Bilirubin 2.0 H Direct Bilirubin 1.4 H Alkaline Phosphatase 133 H Total Protein 8.3 H - EKG Interpretation by Me Rate: Tachycardia - Sinus tachycardia, rate 111. Nonspecific ST abnormalities which appear consistent with EKG from the day prior. QRS of normal duration. Discharge - Discharge Clinical Impression: Chest pain, Vomiting, Abdominal pain, generalized Condition: Fair Disposition: AGAINST MEDICAL ADVICE
[2017-01-14 03:43] LABS: ABSOLUTE BASOPHILS # (AUTO) 0.1 10^3/uL (0.0-0.2); ABSOLUTE LYMPHOCYTES (AUTO) 1.7 10^3/uL (0.5-4.7); ABSOLUTE MONOCYTES (AUTO) 0.4 10^3/uL (0.1-1.4); BASOPHILS % (AUTO) 0.8 % (0-2); HEMATOCRIT 35.5 % (36.0-47.0); HEMOGLOBIN 11.3 g/dL (12.0-15.5); HGB HCT DIFFERENCE -1.6; MEAN CORPUSCULAR HEMOGLOBIN 24.2 pg (27.0-33.4); MEAN CORPUSCULAR VOLUME 76 fl (80-97); MONOCYTES % (AUTO) 3.8 % (3-13); RED BLOOD COUNT 4.69 10^6/uL (3.72-5.28); RED CELL DISTRIBUTION WIDTH 19.9 % (11.5-14.0); SEGMENTED NEUTROPHILS % (AUTO) 80.4 % (42-78); WHITE BLOOD COUNT 11.2 10^3/uL (4.0-10.5)
[2017-01-14 04:17] LABS: ALANINE AMINOTRANSFERASE 25 U/L (9-52); ALBUMIN 4.1 g/dL (3.5-5.0); ALKALINE PHOSPHATASE 133 U/L (38-126); ANION GAP 19 (5-19); ASPARTATE AMINO TRANSFERASE 35 U/L (14-36); BILIRUBIN,DIRECT 1.4 mg/dL (0.0-0.4); BLOOD UREA NITROGEN 9 mg/dL (7-20); CALCIUM 9.5 mg/dL (8.4-10.2); CARBON DIOXIDE 22 mmol/L (22-30); CHLORIDE 107 mmol/L (98-107); CREATININE RESULT 0.82 mg/dL (0.52-1.25); GLUCOSE 223 mg/dL (75-110); LIPASE 39.7 U/L (23-300); POTASSIUM 3.7 mmol/L (3.6-5.0); SODIUM 147.6 mmol/L (137-145); TOTAL PROTEIN 8.3 g/dL (6.3-8.2)
[2017-01-14 05:22] VITALS: BP 176/100
--- NOTE | 2017-01-14 09:15 | EKG REPORT ---
SEVERITY:- ABNORMAL ECG - SINUS TACHYCARDIA INFERIOR INFARCT, AGE INDETERMINATE LATERAL INFARCT, AGE INDETERMINATE : Confirmed by: Ermias Smith 14-Jan-2017 09:15:36
== END 2017-01-14 05:23 | disposition left against medical advice (07) ==
LOC: ER 02:58
DX: R11.10 Vomiting, unspecified (principal); R10.84 Generalized abdominal pain; G89.29 Other chronic pain; R07.9 Chest pain, unspecified; E78.00 Pure hypercholesterolemia, unspecified; I10 Essential (primary) hypertension; J44.9 Chronic obstructive pulmonary disease, unspecified; E11.9 Type 2 diabetes mellitus without complications; I25.2 Old myocardial infarction; Z95.1 Presence of aortocoronary bypass graft; Z87.442 Personal history of urinary calculi; Z90.49 Acquired absence of other specified parts of digestive tract; Z98.51 Tubal ligation status
CPT/HCPCS: 93005; 99281; 36415; 83690; 85025; 80053; 84484; 93010; J0500; J2550

== ENCOUNTER 2017-05-19 20:42 | Emergency (ER) | payer MEDICAID ==
[2017-05-19] MEDS ORDERED: INSULIN REG, HUMAN 100 UNIT/ML 3 ML VIAL (PYX) SUBCUT ONE (22:04)
[2017-05-19 22:10] LABS: APPEARANCE,URINE SLIGHTLY-CLOUDY; BILIRUBIN,URINE NEGATIVE (NEGATIVE); COLOR,URINE YELLOW; GLUCOSE, URINE >=500 mg/dL (NEGATIVE); KETONES,URINE NEGATIVE (NEGATIVE); LEUKOCYTE ESTERASE,URINE NEGATIVE (NEGATIVE); NITRITE,URINE NEGATIVE (NEGATIVE); PROTEIN,URINE 100 mg/dL (NEGATIVE); URINE SPECIFIC GRAVITY 1.021; UROBILINOGEN,URINE NEGATIVE mg/dL (<2.0)
--- NOTE | 2017-05-19 22:43 | RADIOLOGY REPORT (SQ) ---
EXAM DESCRIPTION: CHEST SINGLE VIEW COMPLETED DATE/TIME: 05/19/2017 10:25 pm REASON FOR STUDY: chest pain COMPARISON: 01/13/2017 EXAM PARAMETERS: NUMBER OF VIEWS: One view. TECHNIQUE: Single frontal radiographic view of the chest acquired. RADIATION DOSE: NA LIMITATIONS: None. FINDINGS: LUNGS AND PLEURA: No acute opacities, masses or pneumothorax. No pleural effusion. MEDIASTINUM AND HILAR STRUCTURES: Stable. HEART AND VASCULAR STRUCTURES: Heart normal in size. Normal vasculature. BONES: No acute findings. HARDWARE: CABG. OTHER: No other significant finding. IMPRESSION: NO ACUTE RADIOGRAPHIC FINDING IN THE CHEST. TECHNICAL DOCUMENTATION: JOB ID: [id number] [employer]- All Rights Reserved Reading location - IP/workstation name: [email or web address]
[2017-05-19 22:44] LABS: ABSOLUTE BASOPHILS # (AUTO) 0.1 10^3/uL (0.0-0.2); ABSOLUTE LYMPHOCYTES (AUTO) 2.8 10^3/uL (0.5-4.7); ABSOLUTE MONOCYTES (AUTO) 0.5 10^3/uL (0.1-1.4); ABSOLUTE NEUT (AUTO) 6.4 10^3/uL (1.7-8.2); BASOPHILS % (AUTO) 1.3 % (0-2); EOSINOPHILS % (AUTO) 0.5 % (0-6); HEMATOCRIT 41.3 % (36.0-47.0); HEMOGLOBIN 12.9 g/dL (12.0-15.5); LYMPHOCYTES % (AUTO) 28.2 % (13-45); MEAN CORPUSCULAR HEMOGLOBIN 22.3 pg (27.0-33.4); MEAN CORPUSCULAR HGB CONC 31.2 g/dL (32.0-36.0); MEAN CORPUSCULAR VOLUME 72 fl (80-97); MONOCYTES % (AUTO) 5.2 % (3-13); PLATELET COUNT 329 10^3/uL (150-450); RED BLOOD COUNT 5.77 10^6/uL (3.72-5.28); RED CELL DISTRIBUTION WIDTH 20.2 % (11.5-14.0); SEGMENTED NEUTROPHILS % (AUTO) 64.8 % (42-78); TOTAL CELLS COUNTED % (AUTO) 100 %; WHITE BLOOD COUNT 9.9 10^3/uL (4.0-10.5)
[2017-05-19 23:24] LABS: ALANINE AMINOTRANSFERASE 29 U/L (9-52); ALBUMIN 4.1 g/dL (3.5-5.0); ALKALINE PHOSPHATASE 130 U/L (38-126); ANION GAP 17 (5-19); ASPARTATE AMINO TRANSFERASE 28 U/L (14-36); BILIRUBIN,DIRECT 0.6 mg/dL (0.0-0.4); BLOOD UREA NITROGEN 17 mg/dL (7-20); CALCIUM 10.2 mg/dL (8.4-10.2); CARBON DIOXIDE 22 mmol/L (22-30); CHLORIDE 101 mmol/L (98-107); CREATINE KINASE 45 U/L (30-135); GLUCOSE 397 mg/dL (75-110); LIPASE 98.2 U/L (23-300); POTASSIUM 3.8 mmol/L (3.6-5.0); SODIUM 139.7 mmol/L (137-145); TOTAL PROTEIN 8.1 g/dL (6.3-8.2)
[2017-05-19 23:35] LABS: CREATINE KINASE MB 1.21 ng/mL (<4.55)
[2017-05-19 23:37] LABS: TROPONIN I 0.034 ng/mL
--- NOTE | 2017-05-20 00:33 | ER Document Report ---
ED GI/ - General Chief Complaint: Abdominal Pain Stated Complaint: CHEST PAIN, ABDOMINAL PAIN Time Seen by Provider: 05/19/17 21:42 Mode of Arrival: Medic Information source: Patient Notes: POOR HISTORIAN TRAVEL OUTSIDE OF THE U.S. IN LAST 30 DAYS: No - HPI Patient complains to provider of: Abdominal pain Onset: This morning Timing/Duration: Gradual Quality of pain: Dull Severity at maximum: Mild Severity in ED: Mild Context: denies: Bad food, Lifting, Out of the country travel, , Recent trauma Location: LLQ, RLQ Vaginal bleeding (Compared to normal period): None Menstrual period history: denies: Associated symptoms: Chest pain, Loss of appetite, Nausea, Vomiting - ONCE. denies: Blood in emesis, Chills, Diarrhea, Fever, Sweaty Exacerbated by: Denies Relieved by: Denies Similar symptoms previously: Yes - UNKNOWN Dx Recently seen / treated by doctor: No - Related Data Allergies/Adverse Reactions: haloperidol [From Haldol] Allergy (Verified 12/29/16 14:30) haloperidol lactate [From Haldol] Allergy (Verified 12/29/16 14:30) Past Medical History - General Information source: Patient - Social History Smoking Status: Current Every Day Smoker Chew tobacco use (# tins/day): No Frequency of alcohol use: None Drug Abuse: None Lives with: Alone Family History: Reviewed & Not Pertinent, CAD - Extensive heart disease in mother and brother with brother dying from complications of cardiac stent placement Patient has suicidal ideation: No Patient has homicidal ideation: No - Past Medical History Cardiac Medical History: Reports: Hx Coronary Artery Disease, Hx Heart Attack - x2, Hx Hypercholesterolemia, Hx Hypertension Pulmonary Medical History: Reports: Hx Bronchitis, Hx COPD EENT Medical History: Reports: None Neurological Medical History: Reports: None Endocrine Medical History: Reports: Hx Diabetes Mellitus Type 2 Renal/ Medical History: Reports: Hx Kidney Stones. Denies: Hx Peritoneal Dialysis GI Medical History: Reports: Hx Gastroesophageal Reflux Disease Psychiatric Medical History: Reports: Hx Bipolar Disorder, Hx Depression, Hx Schizophrenia Past Surgical History: Reports: Hx Cardiac Catheterization, Hx Cardiac Surgery - stents, CABG 09/2016, Hx Cholecystectomy, Hx Coronary Artery Bypass Graft, Hx Coronary Stent - x2, Hx Thyroid Surgery, Hx Tonsillectomy, Hx Tubal Ligation, Hx Urinary Tract Surgery, Hx Vascular Surgery - Immunizations Hx Diphtheria, Pertussis, Tetanus Vaccination: Yes Review of Systems - Review of Systems Constitutional: No symptoms reported. denies: Diaphoresis, Fever EENT: No symptoms reported Cardiovascular: See HPI Respiratory: No symptoms reported Gastrointestinal: See HPI Genitourinary: No symptoms reported Female Genitourinary: Post menopausal Musculoskeletal: No symptoms reported Skin: No symptoms reported Neurological/Psychological: No symptoms reported Physical Exam - Vital signs Vitals: Temp Pulse Resp BP Pulse Ox 97.2 F 81 18 150/89 H 97 05/19/17 20:43 05/19/17 20:43 05/19/17 20:43 05/19/17 20:43 05/19/17 20:43 Interpretation: Hypertensive. No: Tachycardic, Tachypneic - General General appearance: Appears well, Alert In distress: None - HEENT Head: Normocephalic Eyes: Normal Conjunctiva: Normal Ears: Normal Nasal: Normal Mouth/Lips: Normal Mucous membranes: Normal - Respiratory Respiratory status: No respiratory distress Chest status: Tender - COSTOSTERNAL AREAS, BILATERAL Breath sounds: Normal - Cardiovascular Rhythm: Regular Heart sounds: Normal auscultation Murmur: Yes - Abdominal Inspection: Normal Distension: No distension - Extremities General upper extremity: Normal inspection General lower extremity: Normal inspection. No: Edema - Neurological Neuro grossly intact: Yes Cognition: Normal Orientation: AAOx4 - Psychological Associated symptoms: Normal affect, Normal mood - Skin Skin Temperature: Warm Skin Moisture: Dry Skin Color: Normal Skin Turgor: Elastic Course - Re-evaluation Re-evalutation: 05/20/17 01:42 Patient states her chest discomfort has been totally relieved by one nitroglycerin tablet. Now she says she wants to go home. I explained to her that this would be very unsafe, that she is at high risk for another acute cardiac event, and that she needs to stay in the hospital for further testing and evaluation. She was told very plainly that if she suffers an acute cardiac event at home, severe illness, lifelong disability, or could be the result. She verbalizes understanding but is adamant in her decision to go home AGAINST MEDICAL ADVICE. She will be medicated with a nitroglycerin transdermal patch. She is encouraged to reconsider her decision to leave [place] and return at any time. She is strongly encouraged to seek prompt follow-up with her primary care provider or return to the emergency department, which ever she chooses to do. - Vital Signs Vital signs: Temp Pulse Resp BP Pulse Ox 97.2 F 81 17 143/92 H 95 05/19/17 20:43 05/19/17 20:43 05/20/17 00:00 05/20/17 00:00 05/20/17 00:00 - Laboratory Result Diagrams: 05/19/17 22:35 05/19/17 22:35 Laboratory results interpreted by me: 05/19/17 05/19/17 05/19/17 20:54 21:22 22:35 RBC 5.77 H MCV 72 L MCH 22.3 L MCHC 31.2 L RDW 20.2 H Glucose POC Glucose 403 H* Hemoglobin A1c % Direct Bilirubin Alkaline Phosphatase Urine Protein 100 H Urine Glucose (UA) >=500 H Urine Blood SMALL H 05/19/17 05/19/17 05/20/17 22:35 22:35 01:16 RBC MCV MCH MCHC RDW Glucose 397 H POC Glucose 289 H Hemoglobin A1c % > 14.0 H Direct Bilirubin 0.6 H Alkaline Phosphatase 130 H Urine Protein Urine Glucose (UA) Urine Blood - Diagnostic Test Radiology reviewed: Image reviewed, Reports reviewed - EKG Interpretation by Me EKG shows normal: Sinus rhythm. abnormal: [place], Intervals - LONG QT, QRS Complexes - OLD INF. PA, OLD LAT. 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 PLEASE RETURN TO THE E.R. PROMPTLY IF YOU CHANGE YOUR MIND FOR ANY REASON, ANY TIME. LEAVE THE NITROGLYCERINE PATCH ON FOR NEXT 24 HOURS. FOLLOW UP WITH YOUR PRIMARY CARE PROVIDER TOMORROW. IF THIS IS NOT POSSIBLE, RETURN TO THE HOSPITAL E.R. FOR RE-EVALUATION. Referrals: TREVON SKAGGS PA-C [Primary Care Provider] - Follow up tomorrow
[2017-05-20] MEDS ORDERED: ASPIRIN 81 MG TABLET, CHEWABLE PO ONE (01:01)
[2017-05-20] MEDS ORDERED: NITROGLYCERIN 0.4 MG/TAB 25 TAB/BOTTLE SL ONE (01:22)
[2017-05-20] MEDS ORDERED: NITROGLYCERIN 2% OINTMENT 1 GM PACKET TP ONE (01:23)
[2017-05-20] MEDS ORDERED: NITROGLYCERIN 10 MG (0.4 MG/HR) PATCH.TD24 TD ONE (01:48)
[2017-05-20 02:06] VITALS: BP 140/84
--- NOTE | 2017-05-20 09:12 | EKG REPORT ---
SEVERITY:- ABNORMAL ECG - SINUS RHYTHM INFERIOR INFARCT, AGE INDETERMINATE LATERAL INFARCT, AGE INDETERMINATE CONSIDER ANTERIOR INFARCT PROLONGED QT INTERVAL : Confirmed by: Ermias Smith 20-May-2017 09:11:35
== END 2017-05-20 02:16 | disposition left against medical advice (07) ==
LOC: ER 20:42
DX: R10.10 Upper abdominal pain, unspecified (principal); R10.31 Right lower quadrant pain; R10.32 Left lower quadrant pain; E11.65 Type 2 diabetes mellitus with hyperglycemia; Z79.4 Long term (current) use of insulin; R07.9 Chest pain, unspecified; R11.2 Nausea with vomiting, unspecified; R63.0 Anorexia; I10 Essential (primary) hypertension; I25.10 Atherosclerotic heart disease of native coronary artery without angina pectoris; I25.2 Old myocardial infarction; J44.9 Chronic obstructive pulmonary disease, unspecified; F17.200 Nicotine dependence, unspecified, uncomplicated; Z95.1 Presence of aortocoronary bypass graft; Z95.5 Presence of coronary angioplasty implant and graft; Z88.8 Allergy status to other drugs, medicaments and biological substances; Z82.49 Family history of ischemic heart disease and other diseases of the circulatory system
CPT/HCPCS: 93005; 99284; 36415; 82553; 82962; 82550; 83690; 85025; 80053; 81001; 84484; 83036; 71045; 93010; J3490 ×2; J1815

== ENCOUNTER 2017-05-23 18:12 | Emergency (ER) | payer MEDICAID ==
[2017-05-23 18:30] VITALS: BP 192/125
[2017-05-23 18:58] LABS: APPEARANCE,URINE CLOUDY; BILIRUBIN,URINE NEGATIVE (NEGATIVE); COLOR,URINE YELLOW; GLUCOSE, URINE >=500 mg/dL (NEGATIVE); KETONES,URINE NEGATIVE (NEGATIVE); LEUKOCYTE ESTERASE,URINE LARGE (NEGATIVE); NITRITE,URINE NEGATIVE (NEGATIVE); PROTEIN,URINE 100 mg/dL (NEGATIVE); URINE SPECIFIC GRAVITY 1.012
[2017-05-23 19:24] LABS: ABSOLUTE BASOPHILS # (AUTO) 0.1 10^3/uL (0.0-0.2); ABSOLUTE MONOCYTES (AUTO) 0.8 10^3/uL (0.1-1.4); ABSOLUTE NEUT (AUTO) 9.8 10^3/uL (1.7-8.2); BASOPHILS % (AUTO) 0.6 % (0-2); EOSINOPHILS % (AUTO) 0.3 % (0-6); HEMATOCRIT 44.8 % (36.0-47.0); HEMOGLOBIN 14.2 g/dL (12.0-15.5); LYMPHOCYTES % (AUTO) 21.9 % (13-45); MEAN CORPUSCULAR HEMOGLOBIN 22.6 pg (27.0-33.4); MEAN CORPUSCULAR HGB CONC 31.7 g/dL (32.0-36.0); MEAN CORPUSCULAR VOLUME 71 fl (80-97); MONOCYTES % (AUTO) 5.9 % (3-13); PLATELET COUNT 346 10^3/uL (150-450); RED BLOOD COUNT 6.27 10^6/uL (3.72-5.28); RED CELL DISTRIBUTION WIDTH 20.6 % (11.5-14.0); SEGMENTED NEUTROPHILS % (AUTO) 71.3 % (42-78); TOTAL CELLS COUNTED % (AUTO) 100 %; WHITE BLOOD COUNT 13.7 10^3/uL (4.0-10.5)
[2017-05-23 19:25] LABS: VENOUS BLOOD BASE EXCESS -1.8 mmol/L; VENOUS BLOOD HCO3 21.7 mmol/L (20-32); VENOUS BLOOD PCO2 33.7 mmHg (35-63); VENOUS BLOOD PH 7.43 (7.30-7.42)
[2017-05-23] MEDS ORDERED: NORMAL SALINE 1000 ML 1,000 ML IV ONE (19:32)
[2017-05-23] MEDS ORDERED: CHLORPROMAZINE HCL INJ 25 MG/1 ML AMPULE IV ONE (19:33)
[2017-05-23] MEDS ORDERED: ONDANSETRON HCL INJ/PF 4 MG/2 ML SDV IV ONE (19:33)
[2017-05-23] MEDS ORDERED: KETOROLAC TROMETHAMINE INJ/PF 30 MG/1 ML SDV IV ONE (19:33)
[2017-05-23] MEDS ORDERED: CEFTRIAXONE INJ 1000 MG VIAL IV ONE (19:37)
--- NOTE | 2017-05-23 19:37 | ER Document Report ---
ED General - General Chief Complaint: Abdominal Pain Stated Complaint: ABDOMINAL PAIN Time Seen by Provider: 05/23/17 19:00 Cannot obtain history due to: Uncooperative Notes: Patient is a 57 year old female with a past medical history of coronary disease status post CABG several months ago as well as a history of chronic chest pain and abdominal pain who presents with the same. She states for "a long time" she has had generalized abdominal pain and chest pain. It is an aching, stabbing pain. Nothing improves or worsens his pain. She has been evaluated on multiple occasions for the same with reassuring workups. History is otherwise limited as patient is moaning, frequently deflects questions, repeatedly asks for IV pain medications. TRAVEL OUTSIDE OF THE [place] IN LAST 30 DAYS: No - Related Data Allergies/Adverse Reactions: haloperidol [From Haldol] Allergy (Verified 12/29/16 14:30) haloperidol lactate [From Haldol] Allergy (Verified 12/29/16 14:30) Past Medical History - General Information source: Patient - Social History Smoking Status: Current Every Day Smoker Chew tobacco use (# tins/day): No Frequency of alcohol use: None Drug Abuse: None Lives with: Alone Family History: Reviewed & Not Pertinent, CAD - Extensive heart disease in mother and brother with brother dying from complications of cardiac stent placement Patient has suicidal ideation: No Patient has homicidal ideation: No - Past Medical History Cardiac Medical History: Reports: Hx Coronary Artery Disease, Hx Heart Attack - x2, Hx Hypercholesterolemia, Hx Hypertension Pulmonary Medical History: Reports: Hx Bronchitis, Hx COPD Endocrine Medical History: Reports: Hx Diabetes Mellitus Type 2 Renal/ Medical History: Reports: Hx Kidney Stones. Denies: Hx Peritoneal Dialysis GI Medical History: Reports: Hx Gastroesophageal Reflux Disease Psychiatric Medical History: Reports: Hx Bipolar Disorder, Hx Depression, Hx Schizophrenia Past Surgical History: Reports: Hx Cardiac Catheterization, Hx Cardiac Surgery - stents, CABG 09/2016, Hx Cholecystectomy, Hx Coronary Artery Bypass Graft, Hx Coronary Stent - x2, Hx Thyroid Surgery, Hx Tonsillectomy, Hx Tubal Ligation, Hx Urinary Tract Surgery, Hx Vascular Surgery - Immunizations Hx Diphtheria, Pertussis, Tetanus Vaccination: Yes Review of Systems - Review of Systems Notes: Constitutional: Negative for fever. HENT: Negative for sore throat. Eyes: Negative for visual changes. Cardiovascular: Positive for chest pain. Respiratory: Negative for shortness of breath. Gastrointestinal: Positive for abdominal pain nausea Genitourinary: Negative for dysuria. Musculoskeletal: Negative for back pain. Skin: Negative for rash. Neurological: Negative for headaches, weakness or numbness. 10 point ROS negative except as marked above and in HPI. Physical Exam - Vital signs Vitals: Temp Pulse Resp BP Pulse Ox 97.3 F 100 16 192/125 H 98 05/23/17 18:29 05/23/17 18:29 05/23/17 18:29 05/23/17 18:29 05/23/17 18:29 Interpretation: Hypertensive Notes: PHYSICAL EXAMINATION: GENERAL: Moaning, appears in no acute distress HEAD: Atraumatic, normocephalic. EYES: Pupils equal round and reactive to light, extraocular movements intact, sclera anicteric, conjunctiva are normal. ENT: nares patent, oropharynx clear without exudates. Moderately dry mucous membranes. NECK: Normal range of motion, supple without lymphadenopathy LUNGS: Breath sounds clear to auscultation bilaterally and equal. No wheezes rales or rhonchi. HEART: Regular rate and rhythm without murmurs ABDOMEN: Soft, no focal abdominal tenderness on examination, no rebound or guarding. EXTREMITIES: Normal range of motion, no pitting or edema. No cyanosis. NEUROLOGICAL: No focal neurological deficits. Moves all extremities spontaneously and on command. PSYCH: Anxious, intermittently tearful, requesting narcotic pain medications. SKIN: Warm, Dry, normal turgor, no rashes or lesions noted. Course - Re-evaluation Re-evalutation: 05/23/17 19:34 Patient presents with chronic abdominal and chest pain. Patient is moaning in the bed, apparently refused EMS transport earlier today when they would not provide her IV narcotics. I have reviewed her extensive repeated visits to the emergency department for the same and have noted a pattern of persistent drug- seeking behavior while in the emergency department. Patient is asking for IV narcotics here in the emergency department. She has no focal abdominal tenderness on examination with the exception of a mild area of suprapubic abdominal tenderness. EKG without ischemic changes. Clinical history is not consistent with ACS, pneumothorax, acute pulmonary embolus, aortic dissection. She does not have any upper abdominal tenderness or clinical history nor laboratories to support a diagnosis of biliary pathology, acute pancreatitis, mesenteric ischemia, or acute appendicitis. Her urine has been cultured and she has been started on antibiotics for presumed diagnosis of urinary tract infection. Will provide IV fluids, nonnarcotic pain control and antiemetics. I have asked the patient if she has been taking her medications as she is both hypertensive and hyperglycemic at time of arrival. She denies taking any medications currently stating that she has not been compliant with her home medication regimen. 05/23/17 20:28 Upon being informed by the nurse that she would not receive IV narcotics the patient left AGAINST MEDICAL ADVICE. The patient did not wait for you to come to the bedside to review the risks and benefits of this and I do not have any knowledge of patient leaving the department until I return to my computer from seeing a prior patient. - Vital Signs Vital signs: Temp Pulse Resp BP Pulse Ox 97.3 F 100 16 192/125 H 98 05/23/17 18:29 05/23/17 18:29 05/23/17 18:29 05/23/17 18:29 05/23/17 18:29 - Laboratory Result Diagrams: 05/23/17 19:10 05/23/17 19:10 Laboratory results interpreted by me: 05/23/17 05/23/17 05/23/17 18:30 19:10 19:10 WBC 13.7 H RBC 6.27 H MCV 71 L MCH 22.6 L MCHC 31.7 L RDW 20.6 H Absolute Neutrophils 9.8 H VBG pH 7.43 H VBG pCO2 33.7 L Urine Protein 100 H Urine Glucose (UA) >=500 H Urine Blood SMALL H Urine Urobilinogen 2.0 H Ur Leukocyte Esterase LARGE H - Diagnostic Test Radiology reviewed: Image reviewed, Reports reviewed Radiology results interpreted by me: 05/24/17 03:11 3 view abdomen: No free air or evidence of obstruction Discharge - Discharge Clinical Impression: Chronic abdominal pain, Essential hypertension, Noncompliance with medication regimen, Drug-seeking behavior Hyperglycemia due to type 2 diabetes mellitus Qualifiers: Diabetes mellitus detention insulin use: with detention use Qualified Code(s): E11.65 - Type 2 diabetes mellitus with hyperglycemia Disposition: AGAINST MEDICAL ADVICE Referrals: TREVON SKAGGS PA-C [Primary Care Provider] - Follow up as needed
--- NOTE | 2017-05-23 20:25 | RADIOLOGY REPORT (SQ) ---
EXAM DESCRIPTION: ACUTE ABDOMEN SERIES COMPLETED DATE/TIME: 05/23/2017 8:15 pm REASON FOR STUDY: abdominal pain, chest pain COMPARISON: Abdominal films 12/06/2016 CT abdomen pelvis 12/12/2016 Chest films 01/13/2017, 05/19/2017 NUMBER OF VIEWS: Three views. TECHNIQUE: Frontal chest, supine abdomen and upright abdomen radiographic images acquired. LIMITATIONS: None. FINDINGS: CHEST: No acute infiltrates. Cardiac silhouette size upper limits of normal with old ster notomy for CABG. No pleural effusion. No pneumothorax. No acute bony changes. FREE AIR: None. No abnormal gas collections. BOWEL GAS PATTERN: Nonobstructive pattern. No dilated loops or air fluid levels. Moderate stool in t he ascending and descending colon CALCIFICATIONS: Calcified right uterine fibroids and tiny pelvic calcified phleboliths HARDWARE: Clips right upper quadrant post cholecystectomy SOFT TISSUES: No gross mass or suggestion of organomegaly. BONES: No acute fracture. No worrisome bone lesions. OTHER: No other significant finding. IMPRESSION: Nonspecific bowel gas pattern with moderate stool in the colon. No acute cardiopulmonary changes Old CABG, prior cholecystectomy TECHNICAL DOCUMENTATION: JOB ID: [id number]- All Rights Reserved Reading location - IP/workstation name: [email or web address]
== END 2017-05-23 20:16 | disposition left against medical advice (07) ==
LOC: ER 18:12
DX: G89.29 Other chronic pain (principal); R10.84 Generalized abdominal pain; R07.9 Chest pain, unspecified; E11.65 Type 2 diabetes mellitus with hyperglycemia; I10 Essential (primary) hypertension; Z91.14 Patient's other noncompliance with medication regimen; Z76.5 Malingerer [conscious simulation]; F17.200 Nicotine dependence, unspecified, uncomplicated; I25.10 Atherosclerotic heart disease of native coronary artery without angina pectoris; I25.2 Old myocardial infarction; J44.9 Chronic obstructive pulmonary disease, unspecified; E11.9 Type 2 diabetes mellitus without complications; Z95.5 Presence of coronary angioplasty implant and graft; Z95.1 Presence of aortocoronary bypass graft; Z82.49 Family history of ischemic heart disease and other diseases of the circulatory system; Z53.29 Procedure and treatment not carried out because of patient's decision for other reasons
CPT/HCPCS: 36415; 74022; 81001; 82803; 85025; 87086; 99284

== ENCOUNTER 2017-06-01 17:02 | Emergency (ER) | payer MEDICAID ==
--- NOTE | 2017-06-01 17:38 | ER Document Report ---
ED Medical Screen (RME) - General Chief Complaint: Flank Pain Stated Complaint: ABDOMINAL PAIN Time Seen by Provider: 06/01/17 17:30 Notes: 57-year-old female patient with poorly controlled diabetes complains of left flank pain for greater than a week. She was seen on 05/19/2017 again on 2017. By history she was advised for the past 2 days and states she was told that her left kidney was an "horrible shape". This was the diagnosis provided by a kidney specialist according to the patient. She states this diagnosis was due to her poorly controlled diabetes. I have greeted and performed a rapid initial assessment of this patient. A comprehensive ED assessment and evaluation of the patient, analysis of test results and completion of the medical decision making process will be conducted by additional ED providers. TRAVEL OUTSIDE OF THE [place] IN LAST 30 DAYS: No - Related Data Allergies/Adverse Reactions: haloperidol [From Haldol] Allergy (Verified 06/01/17 17:04) haloperidol lactate [From Haldol] Allergy (Verified 06/01/17 17:04) Past Medical History - Social History Family history: Reviewed & Not Pertinent - Past Medical History Cardiac Medical History: Reports: Hx Coronary Artery Disease, Hx Heart Attack - x2, Hx Hypercholesterolemia, Hx Hypertension Pulmonary Medical History: Reports: Hx Bronchitis, Hx COPD Endocrine Medical History: Reports: Hx Diabetes Mellitus Type 2 Renal/ Medical History: Reports: Hx Kidney Stones. Denies: Hx Peritoneal Dialysis GI Medical History: Reports: Hx Gastroesophageal Reflux Disease Psychiatric Medical History: Reports: Hx Bipolar Disorder, Hx Depression, Hx Schizophrenia Past Surgical History: Reports: Hx Cardiac Catheterization, Hx Cardiac Surgery - stents, CABG 09/2016, Hx Cholecystectomy, Hx Coronary Artery Bypass Graft, Hx Coronary Stent - x2, Hx Thyroid Surgery, Hx Tonsillectomy, Hx Tubal Ligation, Hx Urinary Tract Surgery, Hx Vascular Surgery - Immunizations Hx Diphtheria, Pertussis, Tetanus Vaccination: Yes History of Influenza Vaccine for 11/2016 - 04/2017 Season: No Physical Exam - Vital signs Vitals: Temp Pulse Resp BP Pulse Ox 97.7 F 69 18 132/79 H 99 06/01/17 17:08 06/01/17 17:08 06/01/17 17:08 06/01/17 17:08 06/01/17 17:08 Course - Vital Signs Vital signs: Temp Pulse Resp BP Pulse Ox 97.7 F 69 18 132/79 H 99 06/01/17 17:08 06/01/17 17:08 06/01/17 17:08 06/01/17 17:08 06/01/17 17:08
[2017-06-01] MEDS ORDERED: ACETAMINOPHEN 325 MG TABLET PO ONE (18:27)
[2017-06-01 18:39] LABS: APPEARANCE,URINE SLIGHTLY-CLOUDY; BILIRUBIN,URINE NEGATIVE (NEGATIVE); COLOR,URINE YELLOW; GLUCOSE, URINE NEGATIVE (NEGATIVE); KETONES,URINE NEGATIVE (NEGATIVE); LEUKOCYTE ESTERASE,URINE LARGE (NEGATIVE); NITRITE,URINE NEGATIVE (NEGATIVE); PROTEIN,URINE 30 mg/dL (NEGATIVE); URINE SPECIFIC GRAVITY 1.012
[2017-06-01 19:09] LABS: ABSOLUTE BASOPHILS # (AUTO) 0.1 10^3/uL (0.0-0.2); ABSOLUTE EOSINOPHILS # (AUTO) 0.1 10^3/uL (0.0-0.6); ABSOLUTE LYMPHOCYTES (AUTO) 2.7 10^3/uL (0.5-4.7); ABSOLUTE MONOCYTES (AUTO) 0.5 10^3/uL (0.1-1.4); ABSOLUTE NEUT (AUTO) 4.5 10^3/uL (1.7-8.2); BASOPHILS % (AUTO) 0.7 % (0-2); EOSINOPHILS % (AUTO) 0.8 % (0-6); HEMOGLOBIN 12.8 g/dL (12.0-15.5); LYMPHOCYTES % (AUTO) 34.6 % (13-45); MEAN CORPUSCULAR HEMOGLOBIN 23.2 pg (27.0-33.4); MEAN CORPUSCULAR VOLUME 72 fl (80-97); MONOCYTES % (AUTO) 6.7 % (3-13); PLATELET COUNT 190 10^3/uL (150-450); RED BLOOD COUNT 5.53 10^6/uL (3.72-5.28); RED CELL DISTRIBUTION WIDTH 21.5 % (11.5-14.0); SEGMENTED NEUTROPHILS % (AUTO) 57.2 % (42-78); TOTAL CELLS COUNTED % (AUTO) 100 %; WHITE BLOOD COUNT 7.9 10^3/uL (4.0-10.5)
[2017-06-01 19:27] LABS: ALANINE AMINOTRANSFERASE 18 U/L (9-52); ALKALINE PHOSPHATASE 110 U/L (38-126); ANION GAP 16 (5-19); ASPARTATE AMINO TRANSFERASE 23 U/L (14-36); BILIRUBIN,TOTAL 1.1 mg/dL (0.2-1.3); BLOOD UREA NITROGEN 41 mg/dL (7-20); CALCIUM 9.9 mg/dL (8.4-10.2); CARBON DIOXIDE 18 mmol/L (22-30); CHLORIDE 109 mmol/L (98-107); GLUCOSE 125 mg/dL (75-110); POTASSIUM 3.6 mmol/L (3.6-5.0); SODIUM 142.8 mmol/L (137-145); TOTAL PROTEIN 7.8 g/dL (6.3-8.2)
[2017-06-01] MEDS ORDERED: RINGERS SOLUTION,LACTATED 1,000 ML IV ONE (20:41)
--- NOTE | 2017-06-01 20:41 | RADIOLOGY REPORT (SQ) ---
EXAM DESCRIPTION: [employer] COMPLETED DATE/TIME: 06/01/2017 8:07 pm REASON FOR STUDY: left flank pain COMPARISON: None. TECHNIQUE: Dynamic and static grayscale images acquired of the kidneys and bladder and recorded on P ACS. Additional selected color Doppler and spectral images recorded. LIMITATIONS: Patient in severe pain FINDINGS: RIGHT KIDNEY: Normal size. Normal echogenicity. No solid or suspicious masses. No h ydronephrosis. No calcifications. LEFT KIDNEY: Normal size. Normal echogenicity. No solid or suspicious masses. No hydronephrosi s. No calcifications. BLADDER: There is a questionable mass anterior to the bladder wall measuring 4 x 4 x 3 cm. OTHER FINDINGS: No other significant finding. IMPRESSION: Limited study. No definite renal abnormality. Question mass anterior to the bladder. TECHNICAL DOCUMENTATION: JOB ID: [id number] [employer]- All Rights Reserved Reading location - IP/workstation name: [email or web address]
--- NOTE | 2017-06-01 20:49 | ER Document Report ---
ED General - General Chief Complaint: Flank Pain Stated Complaint: ABDOMINAL PAIN Time Seen by Provider: 06/01/17 17:30 Cannot obtain history due to: Mentally challenged Notes: Patient is a 57-year-old female with past medical history of poorly controlled diabetes, hypertension, schizophrenia, drug-seeking behavior, who presents with bilateral flank pain, lightheadedness and feeling generally unwell. The patient is extraordinarily poor historian as is her father at the bedside and she is unable to provide any real meaningful history. She is able to tell me that she left AGAINST MEDICAL ADVICE from [facility] yesterday and apparently "something was bad with my kidneys". She is unable to provide any additional meaningful details. TRAVEL OUTSIDE OF THE [place] IN LAST 30 DAYS: No - Related Data Allergies/Adverse Reactions: haloperidol [From Haldol] Allergy (Verified 06/01/17 17:04) haloperidol lactate [From Haldol] Allergy (Verified 06/01/17 17:04) Past Medical History - General Information source: Patient - Social History Smoking Status: Current Every Day Smoker Chew tobacco use (# tins/day): No Frequency of alcohol use: None Drug Abuse: None Lives with: Alone Family History: Reviewed & Not Pertinent, CAD - Extensive heart disease in mother and brother with brother dying from complications of cardiac stent placement Patient has suicidal ideation: No Patient has homicidal ideation: No - Past Medical History Cardiac Medical History: Reports: Hx Coronary Artery Disease, Hx Heart Attack - x2, Hx Hypercholesterolemia, Hx Hypertension Pulmonary Medical History: Reports: Hx Bronchitis, Hx COPD Endocrine Medical History: Reports: Hx Diabetes Mellitus Type 2 Renal/ Medical History: Reports: Hx Kidney Stones. Denies: Hx Peritoneal Dialysis GI Medical History: Reports: Hx Gastroesophageal Reflux Disease Psychiatric Medical History: Reports: Hx Bipolar Disorder, Hx Depression, Hx Schizophrenia Past Surgical History: Reports: Hx Cardiac Catheterization, Hx Cardiac Surgery - stents, CABG 09/2016, Hx Cholecystectomy, Hx Coronary Artery Bypass Graft, Hx Coronary Stent - x2, Hx Thyroid Surgery, Hx Tonsillectomy, Hx Tubal Ligation, Hx Urinary Tract Surgery, Hx Vascular Surgery - Immunizations Hx Diphtheria, Pertussis, Tetanus Vaccination: Yes Review of Systems - Review of Systems Notes: Constitutional: Negative for fever. HENT: Negative for sore throat. Eyes: Negative for visual changes. Cardiovascular: Negative for chest pain. Respiratory: Negative for shortness of breath. Gastrointestinal: Positive for flank pain and nausea Genitourinary: Negative for dysuria. Musculoskeletal: Negative for back pain. Skin: Negative for rash. Neurological: Negative for headaches, weakness or numbness. 10 point ROS negative except as marked above and in HPI. Physical Exam - Vital signs Vitals: Temp Pulse Resp BP Pulse Ox 97.7 F 69 18 132/79 H 99 06/01/17 17:08 06/01/17 17:08 06/01/17 17:08 06/01/17 17:08 06/01/17 17:08 Interpretation: Normal Notes: PHYSICAL EXAMINATION: GENERAL: Appears somewhat unwell but in no acute distress HEAD: Atraumatic, normocephalic. EYES: Pupils equal round and reactive to light, extraocular movements intact, sclera anicteric, conjunctiva are normal. ENT: nares patent, oropharynx clear without exudates. Dry mucous membranes. NECK: Normal range of motion, supple without lymphadenopathy LUNGS: Breath sounds clear to auscultation bilaterally and equal. No wheezes rales or rhonchi. HEART: Regular rate and rhythm without murmurs ABDOMEN: Soft, nontender, normoactive bowel sounds. No guarding, no rebound. No masses appreciated. EXTREMITIES: Normal range of motion, no pitting or edema. No cyanosis. NEUROLOGICAL: No focal neurological deficits. Moves all extremities spontaneously and on command. PSYCH: Flat affect. Alert and oriented 4. SKIN: Warm, Dry, normal turgor, no rashes or lesions noted. Course - Re-evaluation Re-evalutation: 06/01/17 20:47 Patient presents somewhat lethargic, vitals otherwise with acceptable limits, dramatically worsening renal function relative to when she was here less than 2 weeks ago. At that time her renal function was normal and today her GFR is down to 12. I contacted [facility] as she apparently left AGAINST MEDICAL ADVICE yesterday. They report that she was noted by EMS to be walking down the road in her hospital gown with a blood pressure cuff still in place. She apparently had an unremarkable CT scan of her abdomen pelvis, normal renal ultrasound but had a creatinine of 3.5 at that time. We do not currently have nephrology support. I have requested transfer as patient has rapidly worsening renal function of undetermined origin and will need a nephrology assessment on an emergent basis as she is getting close to having a GFR that would mandate dialysis. 06/01/17 22:57 I have discussed this patient with Dr. Morales the hospitalist at [facility] who has accepted the patient as the patient does require an emergent nephrology consultation. 06/02/17 0200 Transport will arrive shortly for patient transfer. She remains hemodynamically stable and appropriate for transport. - Vital Signs Vital signs: Temp Pulse Resp BP Pulse Ox 98.0 F 69 15 116/72 99 06/02/17 02:00 06/01/17 17:08 06/02/17 02:01 06/02/17 02:00 06/02/17 02:01 - Laboratory Result Diagrams: 06/01/17 18:54 06/01/17 18:54 Laboratory results interpreted by me: 06/01/17 06/01/17 06/01/17 18:15 18:54 18:54 RBC 5.53 H MCV 72 L MCH 23.2 L RDW 21.5 H Chloride Carbon Dioxide BUN Creatinine Est GFR ( Amer) Est GFR (Non-Af Amer) Glucose Hemoglobin A1c % 13.3 H Direct Bilirubin Urine Protein 30 H Urine Blood SMALL H Urine Urobilinogen 2.0 H Ur Leukocyte Esterase LARGE H 06/01/17 18:54 RBC MCV MCH RDW Chloride 109 H Carbon Dioxide 18 L BUN 41 H Creatinine 3.96 H Est GFR ( Amer) 14 L Est GFR (Non-Af Amer) 12 L Glucose 125 H Hemoglobin A1c % Direct Bilirubin 1.0 H Urine Protein Urine Blood Urine Urobilinogen Ur Leukocyte Esterase - Diagnostic Test Radiology reviewed: Reports reviewed Discharge - Discharge Clinical Impression: Poorly controlled diabetes mellitus Acute renal failure Qualifiers: Acute renal failure type: unspecified Qualified Code(s): N17.9 - Acute kidney failure, unspecified Chronic pain Qualifiers: Chronic pain type: other chronic pain Qualified Code(s): G89.29 - Other chronic pain Schizophrenia Qualifiers: Schizophrenia type: unspecified Qualified Code(s): F20.9 - Schizophrenia, unspecified Condition: Fair Disposition: [facility] Referrals: TREVON SKAGGS PA-C [Primary Care Provider] - Follow up as needed
[2017-06-01] MEDS ORDERED: QUETIAPINE FUMARATE 100 MG TABLET PO ONE (23:38)
[2017-06-01] MEDS ORDERED: PAROXETINE HCL 20 MG TABLET PO ONE (23:38)
[2017-06-02 02:06] VITALS: BP 116/72
== END 2017-06-02 02:32 | disposition short-term general hospital (02) ==
LOC: ER 17:02
DX: E11.9 Type 2 diabetes mellitus without complications (principal); N17.9 Acute kidney failure, unspecified; G89.29 Other chronic pain; F20.9 Schizophrenia, unspecified; R10.9 Unspecified abdominal pain; R11.0 Nausea; I10 Essential (primary) hypertension; F17.200 Nicotine dependence, unspecified, uncomplicated; I25.10 Atherosclerotic heart disease of native coronary artery without angina pectoris; I25.2 Old myocardial infarction; J44.9 Chronic obstructive pulmonary disease, unspecified
CPT/HCPCS: 99285; 96360; 36415; 85025; 80053; 81001; 83036; 76775; J3490 ×3; J7120

== ENCOUNTER 2017-06-04 14:30 | Emergency (ER) | payer MEDICAID ==
[2017-06-04 14:42] VITALS: BP 125/75
--- NOTE | 2017-06-04 16:12 | ER Document Report ---
ED GI/ - General Chief Complaint: Flank Pain Stated Complaint: LOW BACK PAIN, FLANK PAIN Time Seen by Provider: 06/04/17 15:39 Mode of Arrival: Ambulatory Information source: Patient TRAVEL OUTSIDE OF THE [place] IN LAST 30 DAYS: No - HPI Patient complains to provider of: Abdominal pain Notes: 06/04/17 16:06 Patient is here via EMS with complaints of abdominal pain. Her brother is at the bedside. In reviewing her previous records, she has been here 2 times in the last week and noted to have worsening renal failure with creatinines up to 3 -1/2 and GFR is down to the teens. Both times she has been transferred to [facility] for nephrology consult in his left AGAINST MEDICAL ADVICE on both occasions. Her brother states that he found her lying on the floor complaining of abdominal pain so he called EMS who brought her to [place] for evaluation. Patient is an extremely poor historian and does not give me much detail. She states that she wants to have "surgery" to have her kidneys removed today because she thinks that is what she needs due to her kidney failure. Had a long discussion with her that she likely will require dialysis if her kidneys continue to not function properly and would likely not need to have her kidneys removed for this. After extremely lengthy conversation with the patient, she states that she no longer wants to be seen for her symptoms at this time and states that she is going to leave. Brother is at the bedside and states that he would prefer that she stays, but it is up to her and he will take her home. States that he will talk to her son to see if they can explain to her that the only way this will be alleviated as if she stays in the hospital long enough to have everything fully evaluated. - Related Data Allergies/Adverse Reactions: haloperidol [From Haldol] Allergy (Verified 06/04/17 14:35) haloperidol lactate [From Haldol] Allergy (Verified 06/04/17 14:35) Past Medical History - Social History Smoking Status: Current Every Day Smoker Family History: Reviewed & Not Pertinent, CAD - Extensive heart disease in mother and brother with brother dying from complications of cardiac stent placement - Past Medical History Cardiac Medical History: Reports: Hx Coronary Artery Disease, Hx Heart Attack - x2, Hx Hypercholesterolemia, Hx Hypertension Pulmonary Medical History: Reports: Hx Bronchitis, Hx COPD Endocrine Medical History: Reports: Hx Diabetes Mellitus Type 2 Renal/ Medical History: Reports: Hx Kidney Stones. Denies: Hx Peritoneal Dialysis GI Medical History: Reports: Hx Gastroesophageal Reflux Disease Psychiatric Medical History: Reports: Hx Bipolar Disorder, Hx Depression, Hx Schizophrenia Past Surgical History: Reports: Hx Cardiac Catheterization, Hx Cardiac Surgery - stents, CABG 09/2016, Hx Cholecystectomy, Hx Coronary Artery Bypass Graft, Hx Coronary Stent - x2, Hx Thyroid Surgery, Hx Tonsillectomy, Hx Tubal Ligation, Hx Urinary Tract Surgery, Hx Vascular Surgery - Immunizations Hx Diphtheria, Pertussis, Tetanus Vaccination: Yes Review of Systems - Review of Systems -: Yes All other systems reviewed and negative Physical Exam - Vital signs Vitals: Temp Pulse Resp BP Pulse Ox 97.5 F 63 16 125/75 97 06/04/17 14:41 06/04/17 14:41 06/04/17 14:41 06/04/17 14:41 06/04/17 14:41 - Notes Notes: GENERAL: alert, cooperative, nontoxic, no distress. HEAD: normocephalic, atraumatic EYES: conjunctiva pink without discharge, no external redness or swelling. EARS: no external swelling, no external redness NOSE: atraumatic, no external swelling MOUTH/THROAT: mucous membranes moist and pink, posterior pharynx without erythema, swelling, exudate. No trismus or drooling. NECK: soft, supple, full range of motion, no meningismus. CHEST: no distress, lungs clear and equal throughout. No wheezing, rales, rhonchi. CARDIAC: regular rate and rhythm, no murmur, normal capillary refill, normal pulses. No peripheral edema noted. ABDOMEN: Soft, nontender. BACK: full range of motion, no CVA tenderness. EXTREMITIES: full range of motion of all extremities. No redness, no swelling. NEURO: alert and oriented x 3, no focal deficits, full range of motion of all extremities. PYSCH: appropriate mood, affect. Patient is cooperative. SKIN: pink, warm, dry, no rash. Course - Re-evaluation Re-evalutation: 06/04/17 16:10 Patient is nontoxic appearing with stable vitals. Patient has been here 2 times in the last week with complaints of flank pain and was noted to be in renal failure. Both time she was transferred to [facility] and on both occasions left AGAINST MEDICAL ADVICE. Her brother found her on the floor complaining of pain today, so he called EMS who brought her in. She goes between crying and talking normally to us. She states that she does not want to do anything, that she is tired of waiting around. She states that she is going to leave without allowing us to perform any testing. We explained to the patient that if she leaves without assessing her kidney function, there is the possibility that her kidney function could be worsening, her potassium could be extremely high, she could have an arrhythmia and potentially . She verbalized understanding of this and seems to be in a mental state to understand what she is stating at this time. Her brother agrees with this at this time. This point the patient is leaving AGAINST MEDICAL ADVICE will not allow any testing to be performed at this time. She walked out prior to signing any paperwork because she states that she is sick of waiting. I explained to her brother that we are here and that he can bring her back at any time to be reevaluated. I also instructed that if they are concerned enough about her that they should try to make someone her power of forestry pilot that can make medical decisions for her so that she can have her worsening kidney functions addressed. Her brother verbalized an understanding of this. - Vital Signs Vital signs: Temp Pulse Resp BP Pulse Ox 97.5 F 63 16 125/75 97 06/04/17 14:41 06/04/17 14:41 06/04/17 14:41 06/04/17 14:41 06/04/17 14:41 Discharge - Discharge Clinical Impression: Abdominal pain Qualifiers: Abdominal location: generalized Qualified Code(s): R10.84 - Generalized abdominal pain Condition: Stable Disposition: AGAINST MEDICAL ADVICE Referrals: ANCA CARPIO, JONAS [Primary Care Provider] - Follow up as needed
== END 2017-06-04 16:00 | disposition left against medical advice (07) ==
LOC: ER 14:30
DX: R10.84 Generalized abdominal pain (principal); F17.200 Nicotine dependence, unspecified, uncomplicated; I25.10 Atherosclerotic heart disease of native coronary artery without angina pectoris; E78.00 Pure hypercholesterolemia, unspecified; I11.0 Hypertensive heart disease with heart failure; E11.9 Type 2 diabetes mellitus without complications; I25.2 Old myocardial infarction; Z87.442 Personal history of urinary calculi; Z95.1 Presence of aortocoronary bypass graft; Z90.49 Acquired absence of other specified parts of digestive tract
CPT/HCPCS: 99283

== ENCOUNTER 2017-06-16 10:15 | Observation (INO) | payer MEDICAID ==
[2017-06-16] MEDS ORDERED: ASPIRIN 81 MG TABLET, CHEWABLE PO ONE (10:18)
--- NOTE | 2017-06-16 10:39 | ER Document Report ---
ED Syncope and Near Syncope - General Chief Complaint: Syncope Stated Complaint: SYCOPE Time Seen by Provider: 06/16/17 10:23 Mode of Arrival: Medic Information source: Patient Notes: Patient reports having chest pain that she describes as a tightness that started yesterday. Patient states that she was at a grocery store and had to go to the bathroom, patient states that she took 2 nitroglycerin tablets about a minute apart while in the bathroom and after she finished she stood up and then had a syncopal episode. Patient was found by an employee of the store. Patient presents with chest tightness and a 3/5 scale. Patient does report some nausea but denies any vomiting or diarrhea. Patient denies any fever. Patient states she has chronic cough that she attributes to her COPD. Patient does have a history of quadruple bypass with 2 stents being placed. Patient is uncertain when her last cardiac cath or stress test was. TRAVEL OUTSIDE OF THE [place] IN LAST 30 DAYS: No - HPI Patient complains to provider of: Fainting Episode witnessed (by whom): No Symptoms prior to episode: Chest pain. No: Back pain, Dizziness, Fever Position/Activity at time of episode: Standing Quality of pain: Other - tightness Pain Level: 3 Injury location: None Current symptoms: Chest pain, Nausea. denies: Arm pain, Back pain, Fever, Headache, Neck pain, Vomiting Similar symptoms previously: Yes - Chest pain Recently seen / treated by doctor: Yes - Related Data Allergies/Adverse Reactions: haloperidol [From Haldol] Allergy (Verified 06/16/17 10:36) haloperidol lactate [From Haldol] Allergy (Verified 06/16/17 10:36) Past Medical History - General Information source: Patient - Social History Smoking Status: Current Every Day Smoker Frequency of alcohol use: None Drug Abuse: None Lives with: Family Family History: Reviewed & Not Pertinent, CAD - Extensive heart disease in mother and brother with brother dying from complications of cardiac stent placement Patient has suicidal ideation: No Patient has homicidal ideation: No - Past Medical History Cardiac Medical History: Reports: Hx Coronary Artery Disease, Hx Heart Attack - x2, Hx Hypercholesterolemia, Hx Hypertension Pulmonary Medical History: Reports: Hx Bronchitis, Hx COPD Neurological Medical History: Reports: Hx Cerebrovascular Accident Endocrine Medical History: Reports: Hx Diabetes Mellitus Type 2 Renal/ Medical History: Reports: Hx Kidney Stones. Denies: Hx Peritoneal Dialysis GI Medical History: Reports: Hx Gastroesophageal Reflux Disease Psychiatric Medical History: Reports: Hx Bipolar Disorder, Hx Depression, Hx Schizophrenia Past Surgical History: Reports: Hx Cardiac Catheterization, Hx Cardiac Surgery - stents, CABG 09/2016, Hx Cholecystectomy, Hx Coronary Artery Bypass Graft, Hx Coronary Stent - x2, Hx Thyroid Surgery, Hx Tonsillectomy, Hx Tubal Ligation, Hx Urinary Tract Surgery, Hx Vascular Surgery - Immunizations Hx Diphtheria, Pertussis, Tetanus Vaccination: Yes Review of Systems - Review of Systems Constitutional: No symptoms reported. denies: Fever, Recent illness EENT: No symptoms reported Cardiovascular: Chest pain, Syncope Respiratory: Cough. denies: Short of breath Gastrointestinal: Nausea. denies: Abdominal pain, Vomiting Genitourinary: No symptoms reported Female Genitourinary: No symptoms reported Musculoskeletal: No symptoms reported. denies: Back pain, Neck pain Skin: No symptoms reported Hematologic/Lymphatic: No symptoms reported Neurological/Psychological: denies: Headaches Physical Exam - Vital signs Vitals: Pulse Ox 100 06/16/17 10:20 - General General appearance: Appears well, Alert In distress: None - HEENT Head: Normocephalic, Atraumatic. No: Mills's sign, Ecchymosis, Racoon's eyes, Tenderness Eyes: Normal Conjunctiva: Normal Extraocular movements intact: Yes Pupils: PERRL Nasal: Normal Mouth/Lips: Normal Mucous membranes: Normal Neck: Normal, Supple. No: Lymphadenopathy - Respiratory Respiratory status: No respiratory distress Chest status: Tender. No: Pain with cough, Pain with deep breathing Breath sounds: Normal. No: Rales, Rhonchi, Stridor, Wheezing Chest palpation: Tender - Cardiovascular Rhythm: Bradycardia Heart sounds: S1 appreciated, S2 appreciated Murmur: No - Abdominal Inspection: Normal Distension: No distension Bowel sounds: Normal Tenderness: Nontender Organomegaly: No organomegaly - Back Back: Normal, Nontender. No: Deformity/step-off, CVA tenderness, Vertebra tenderness - Extremities General upper extremity: Normal inspection, Nontender, Normal strength General lower extremity: Normal inspection, Nontender, Normal strength - Neurological Neuro grossly intact: Yes Cognition: Normal Mathews Coma Scale Eye Opening: Spontaneous Mathews Coma Scale Verbal: Oriented Mathews Coma Scale Motor: Obeys Commands Darron Coma Scale Total: 15 - Psychological Associated symptoms: Normal affect, Normal mood - Skin Skin Temperature: Warm Skin Moisture: Dry Skin Color: Normal Course - Re-evaluation Re-evalutation: 06/16/17 10:[address] Gupta regarding patient presentation and diagnostic evaluation, advises giving patient a GI cocktail at this time. 06/16/17 12:[address] Gupta regarding patient's diagnostic evaluation, advises consultation with hospitalist for admission given patient's significant cardiac history as well as presenting complaint. Patient presently denies any chest pain symptoms at this time, vital signs are stable. 06/16/17 12:[address] Sparks for admission, reviewed case with her, recommends obtaining CT scan of the head and reviewing the case with Dr. Grace for admission. 06/16/17 12:[address] Grace who agrees to accept patient as an observation admission to telemetry. Patient is agreeable with this plan of care at this time. - Vital Signs Vital signs: Temp Pulse Resp BP Pulse Ox 97.8 F 63 20 126/91 H 99 06/16/17 14:17 06/16/17 14:17 06/16/17 14:17 06/16/17 14:17 06/16/17 14:17 - Laboratory Result Diagrams: 06/16/17 10:27 06/16/17 10:27 Laboratory results interpreted by me: 06/16/17 06/16/17 06/16/17 10:27 10:27 11:43 Hgb 10.8 L Hct 34.7 L MCV 74 L MCH 23.1 L MCHC 31.0 L RDW 25.2 H Creatinine 1.60 H Est GFR ( Amer) 40 L Est GFR (Non-Af Amer) 33 L Glucose 173 H POC Glucose Direct Bilirubin 0.6 H Urine Protein 100 H Urine Urobilinogen 4.0 H Ur Leukocyte Esterase LARGE H 06/16/17 12:28 Hgb Hct MCV MCH MCHC RDW Creatinine Est GFR ( Amer) Est GFR (Non-Af Amer) Glucose POC Glucose 134 H Direct Bilirubin Urine Protein Urine Urobilinogen Ur Leukocyte Esterase Labs- Entire Visit 06/16/17 06/16/17 06/16/17 10:27 10:27 10:27 WBC 6.4 RBC 4.67 Hgb 10.8 L Hct 34.7 L MCV 74 L MCH 23.1 L MCHC 31.0 L RDW 25.2 H Plt Count 157 Total Counted 100 Seg Neutrophils % Not Reportable Seg Neuts % (Manual) 70 Lymphocytes % Not Reportable Lymphocytes % (Manual) 26 Monocytes % Not Reportable Monocytes % (Manual) 4 Eosinophils % Not Reportable Eosinophils % (Manual) 0 Basophils % Not Reportable Basophils % (Manual) 0 Absolute Neutrophils Not Reportable Abs Neuts (Manual) 4.5 Absolute Lymphocytes Not Reportable Abs Lymphs (Manual) 1.7 Absolute Monocytes Not Reportable Abs Monocytes (Manual) 0.3 Absolute Eosinophils Not Reportable Absolute Eos (Manual) 0.0 Absolute Basophils Not Reportable Abs Basophils (Manual) 0.0 Platelet Comment ADEQUATE Polychromasia SLIGHT Hypochromasia 2+ Anisocytosis 3+ Microcytosis 2+ Rouleaux SLIGHT Sodium 144.0 Potassium 4.4 Chloride 105 Carbon Dioxide 25 Anion Gap 14 BUN 19 Creatinine 1.60 H Est GFR ( Amer) 40 L Est GFR (Non-Af Amer) 33 L Glucose 173 H Calcium 9.4 Magnesium 1.6 Total Bilirubin 0.6 Direct Bilirubin 0.6 H Neonat Total Bilirubin Not Reportable Neonat Direct Bilirubin Not Reportable Neonat Indirect Bili Not Reportable AST 18 ALT 22 Alkaline Phosphatase 98 Creatine Kinase 41 CK-MB (CK-2) 1.16 Troponin I 0.048 Total Protein 6.5 Albumin 3.6 Urine Color Urine Appearance Urine pH Ur Specific [place] Urine Protein Urine Glucose (UA) Urine Ketones Urine Blood Urine Nitrite Urine Bilirubin Urine Urobilinogen Ur Leukocyte Esterase Urine WBC (Auto) Urine RBC (Auto) U Hyaline Cast (Auto) Urine Bacteria (Auto) Squamous Epi Cells Auto Urine Mucus (Auto) Urine Ascorbic Acid 06/16/17 11:43 WBC RBC Hgb Hct MCV MCH MCHC RDW Plt Count Total Counted Seg Neutrophils % Seg Neuts % (Manual) Lymphocytes % Lymphocytes % (Manual) Monocytes % Monocytes % (Manual) Eosinophils % Eosinophils % (Manual) Basophils % Basophils % (Manual) Absolute Neutrophils Abs Neuts (Manual) Absolute Lymphocytes Abs Lymphs (Manual) Absolute Monocytes Abs Monocytes (Manual) Absolute Eosinophils Absolute Eos (Manual) Absolute Basophils Abs Basophils (Manual) Platelet Comment Polychromasia Hypochromasia Anisocytosis Microcytosis Rouleaux Sodium Potassium Chloride Carbon Dioxide Anion Gap BUN Creatinine Est GFR ( Amer) Est GFR (Non-Af Amer) Glucose Calcium Magnesium Total Bilirubin Direct Bilirubin Neonat Total Bilirubin Neonat Direct Bilirubin Neonat Indirect Bili AST ALT Alkaline Phosphatase Creatine Kinase CK-MB (CK-2) Troponin I Total Protein Albumin Urine Color YELLOW Urine Appearance CLOUDY Urine pH 5.0 Ur Specific [place] 1.014 Urine Protein 100 H Urine Glucose (UA) NEGATIVE Urine Ketones NEGATIVE Urine Blood NEGATIVE Urine Nitrite NEGATIVE Urine Bilirubin NEGATIVE Urine Urobilinogen 4.0 H Ur Leukocyte Esterase LARGE H Urine WBC (Auto) 60 Urine RBC (Auto) 10 U Hyaline Cast (Auto) 3 Urine Bacteria (Auto) TRACE Squamous Epi Cells Auto 9 Urine Mucus (Auto) RARE Urine Ascorbic Acid NEGATIVE - Diagnostic Test Radiology reviewed: Reports reviewed Discharge - Discharge Clinical Impression: Chest pain Qualifiers: Chest pain type: unspecified Qualified Code(s): R07.9 - Chest pain, unspecified Syncope Qualifiers: Syncope type: unspecified Qualified Code(s): R55 - Syncope and collapse Condition: Stable Disposition: ADMITTED OBSERVATION Admitting Provider: Hospitalist Unit Admitted: Telemetry
[2017-06-16] MEDS ORDERED: LIDOCAINE 2% VISCOUS SOLN 20 ML UDCUP PO ONE (10:40)
[2017-06-16] MEDS ORDERED: MAG HYDROX/AL HYDROX/SIMETH SUSP 30 ML UDCUP PO ONE (10:40)
[2017-06-16 10:42] LABS: HEMATOCRIT 34.7 % (36.0-47.0); HEMOGLOBIN 10.8 g/dL (12.0-15.5); MEAN CORPUSCULAR HEMOGLOBIN 23.1 pg (27.0-33.4); MEAN CORPUSCULAR VOLUME 74 fl (80-97); PLATELET COUNT 157 10^3/uL (150-450); RED BLOOD COUNT 4.67 10^6/uL (3.72-5.28); RED CELL DISTRIBUTION WIDTH 25.2 % (11.5-14.0); WHITE BLOOD COUNT 6.4 10^3/uL (4.0-10.5)
[2017-06-16 11:10] LABS: ALANINE AMINOTRANSFERASE 22 U/L (9-52); ALBUMIN 3.6 g/dL (3.5-5.0); ALKALINE PHOSPHATASE 98 U/L (38-126); ANION GAP 14 (5-19); ASPARTATE AMINO TRANSFERASE 18 U/L (14-36); BILIRUBIN,DIRECT 0.6 mg/dL (0.0-0.4); BILIRUBIN,TOTAL 0.6 mg/dL (0.2-1.3); BLOOD UREA NITROGEN 19 mg/dL (7-20); CALCIUM 9.4 mg/dL (8.4-10.2); CARBON DIOXIDE 25 mmol/L (22-30); CHLORIDE 105 mmol/L (98-107); CREATINE KINASE 41 U/L (30-135); GLUCOSE 173 mg/dL (75-110); POTASSIUM 4.4 mmol/L (3.6-5.0); TOTAL PROTEIN 6.5 g/dL (6.3-8.2)
--- NOTE | 2017-06-16 11:14 | RADIOLOGY REPORT (SQ) ---
EXAM DESCRIPTION: CHEST SINGLE VIEW COMPLETED DATE/TIME: 06/16/2017 10:43 am REASON FOR STUDY: cp COMPARISON: 05/19/2017 EXAM PARAMETERS: NUMBER OF VIEWS: One view. TECHNIQUE: Single frontal radiographic view of the chest acquired. RADIATION DOSE: NA LIMITATIONS: None. FINDINGS: LUNGS AND PLEURA: No opacities, masses or pneumothorax. No pleural effusion. MEDIASTINUM AND HILAR STRUCTURES: No masses. Contour normal. HEART AND VASCULAR STRUCTURES: Heart normal in size. Normal vasculature. BONES: No acute findings. HARDWARE: Patient is status post median sternotomy OTHER: No other significant finding. IMPRESSION: No significant interval change. No acute findings. Other findings as noted above TECHNICAL DOCUMENTATION: JOB ID: [id number] [employer]- All Rights Reserved Reading location - IP/workstation name: [email or web address]
[2017-06-16 11:16] LABS: ABSOLUTE LYMPHOCYTES# (MANUAL) 1.7 10^3/uL (0.5-4.7); ABSOLUTE MONOCYTES # (MANUAL) 0.3 10^3/uL (0.1-1.4); ABSOLUTE NEUTROPHILS# (MANUAL) 4.5 10^3/uL (1.7-8.2); BASOPHILS % (MANUAL) 0 % (0-2); EOSINOPHILS % (MANUAL) 0 % (0-6); LYMPHOCYTES % (MANUAL) 26 % (13-45); MONOCYTES % (MANUAL) 4 % (3-13); SEGMENTED NEUTROPHILS % (MAN) 70 % (42-78); TOTAL CELLS COUNTED 100
[2017-06-16 11:17] LABS: ANISOCYTOSIS 3+; HYPOCHROMASIA 2+; PLATELET COMMENT ADEQUATE; POLYCHROMASIA SLIGHT; ROULEAUX SLIGHT
[2017-06-16 11:22] LABS: CREATINE KINASE MB 1.16 ng/mL (<4.55)
[2017-06-16 11:25] LABS: TROPONIN I 0.048 ng/mL
[2017-06-16 12:09] LABS: APPEARANCE,URINE CLOUDY; BILIRUBIN,URINE NEGATIVE (NEGATIVE); COLOR,URINE YELLOW; GLUCOSE, URINE NEGATIVE (NEGATIVE); KETONES,URINE NEGATIVE (NEGATIVE); LEUKOCYTE ESTERASE,URINE LARGE (NEGATIVE); NITRITE,URINE NEGATIVE (NEGATIVE); PROTEIN,URINE 100 mg/dL (NEGATIVE); URINE SPECIFIC GRAVITY 1.014
[2017-06-16] MEDS ORDERED: CEFTRIAXONE INJ 1000 MG VIAL IV ONE (12:28)
--- NOTE | 2017-06-16 13:19 | RADIOLOGY REPORT (SQ) ---
EXAM DESCRIPTION: CT HEAD WITHOUT COMPLETED DATE/TIME: 06/16/2017 12:59 pm REASON FOR STUDY: syncope COMPARISON: November 2016 TECHNIQUE: Axial images acquired through the brain without intravenous contrast. Images reviewed wi th bone, brain and subdural windows. Additional sagittal and coronal reconstructions were generated. Images stored on PACS. All CT scanners at this facility use dose modulation, iterative reconstruction, and/or weight based d osing when appropriate to reduce radiation dose to as low as reasonably achievable (ALARA). [facility]: Dose Right [facility]: CareDose [facility]: Dose Right [facility]: Teradose 4D [facility]: Smart [employer] [place] RADIATION DOSE: CT Rad equipment meets quality standard of care and radiation dose reduction techniq ues were employed. CTDIvol: 53.2 mGy. DLP: 1017 mGy-cm. mGy. LIMITATIONS: None. FINDINGS: VENTRICLES: Normal size and contour. CEREBRUM: No masses. No hemorrhage. No midline shift. No evidence for acute infarction. The previo usly described right parietal hypoattenuation is again identified and appears unchanged. CEREBELLUM: No masses. No hemorrhage. No alteration of density. No evidence for acute infarction. EXTRAAXIAL SPACES: No fluid collections. No masses. ORBITS AND GLOBE: No intra- or extraconal masses. Normal contour of globe without masses. CALVARIUM: No fracture. PARANASAL SINUSES: No fluid or mucosal thickening. SOFT TISSUES: No mass or hematoma. OTHER: No other significant finding. IMPRESSION: No significant interval change as compared to the previous study. No acute findings. O ther findings as noted above. EVIDENCE OF ACUTE STROKE: NO. COMMENT: Quality ID # 436: Final reports with documentation of one or more dose reduction techniques (e.g., Automated exposure control, adjustment of the mA and/or kV according to patient size, use of iterative reconstruction technique) TECHNICAL DOCUMENTATION: JOB ID: [id number] [employer]- All Rights Reserved Reading location - IP/workstation name: [email or web address]
[2017-06-16] MEDS ORDERED: ACETAMINOPHEN 325 MG TABLET PO PRN (13:46)
[2017-06-16] MEDS ORDERED: NORMAL SALINE 1000 ML 1,000 ML IV PRN ×2 (13:46→16:47)
[2017-06-16] MEDS ORDERED: ONDANSETRON HCL INJ/PF 4 MG/2 ML SDV IV PRN (13:46)
--- NOTE | 2017-06-16 14:48 | RADIOLOGY REPORT (SQ) ---
EXAM DESCRIPTION: CTA CHEST COMPLETED DATE/TIME: 06/16/2017 2:32 pm REASON FOR STUDY: syncope CP COMPARISON: October 2016 TECHNIQUE: CT scan of the chest performed using helical scanning technique with dynamic intravenous contrast injection. Images reviewed with lung, soft tissue and bone windows. Reconstructed coronal and sagittal MPR images reviewed. Additional 3 dimensional post-processing performed to develop Maximal Intensity Projection images (AZ P). All images stored on PACS. All CT scanners at this facility use dose modulation, iterative reconstruction, and/or weight based d osing when appropriate to reduce radiation dose to as low as reasonably achievable (ALARA). [facility]: Dose Right [facility]: CareDose [facility]: Dose Right [facility]: Teradose 4D [facility]: Adjug CONTRAST TYPE AND DOSE: contrast/concentration: Isovue 300.00 mg/ml; Total Contrast Delivered: 75.0 ml; Total Saline Delivered: 90.1 ml Contrast bolus optimized for the pulmonary arteries. Not diagnostic for the aorta. RENAL FUNCTION: Creatinine 1.6 RADIATION DOSE: CT Rad equipment meets quality standard of care and radiation dose reduction techniq ues were employed. CTDIvol: 20.5 - 23.2 mGy. DLP: 742 mGy-cm. . LIMITATIONS: None. FINDINGS: LUNGS AND PLEURA: No masses, infiltrates, pneumothorax. No pleural effusions, calcificati ons. Scattered bullous lesions are again identified. Linear scarring or subsegmental atelectasis is identified in the left lung base. AORTA AND GREAT VESSELS: No aneurysm. Contrast bolus not optimized for the aorta. HEART: No pericardial effusion. No significant coronary artery calcifications. PULMONARY ARTERIES: No emboli visualized in the main pulmonary arteries or the segmental branches. HILAR AND MEDIASTINAL STRUCTURES: No identified masses or abnormal nodes. HARDWARE: Patient is status post median sternotomy UPPER ABDOMEN: Perihepatic and perisplenic ascitic fluid is identified. THYROID AND OTHER SOFT TISSUES: No masses. No adenopathy. BONES: No acute or significant finding. 3D MIPS: Confirm above findings. OTHER: No other significant finding. IMPRESSION: No evidence for pulmonary embolic disease. No acute consolidations or pleural effusions . No pneumothorax is seen. Perihepatic and perisplenic ascitic fluid is identified. Other findings as noted above COMMENT: Quality ID # 436: Final reports with documentation of one or more dose reduction techniques (e.g., Automated exposure control, adjustment of the mA and/or kV according to patient size, use of iterative reconstruction technique) TECHNICAL DOCUMENTATION: JOB ID: [id number] [employer]- All Rights Reserved Reading location - IP/workstation name: [email or web address]
[2017-06-16 15:26] VITALS: BP 126/91
[2017-06-16] MEDS ORDERED: ENOXAPARIN SODIUM INJ 40 MG/0.4 ML DISP.SYRIN SUBCUT ONE (16:00)
--- NOTE | 2017-06-16 16:37 | RADIOLOGY REPORT (SQ) ---
EXAM DESCRIPTION: CAROTID DOPPLER COMPLETED DATE/TIME: 06/16/2017 4:12 pm REASON FOR STUDY: syncope COMPARISON: CT brain 12/12/2016, 06/16/2017 TECHNIQUE: Grayscale ultrasound, Doppler velocity and spectra, and color Doppler images acquired of the extra-cranial carotid and vertebral arteries. Images stored on PACS. LIMITATIONS: None. FINDINGS: RIGHT CAROTID CCA Velocities: Within normal limits. ICA Velocities The right internal carotid artery is occluded at the bifurcation and throughout the neck. The right external carotid artery is patent. LEFT CAROTID CCA Velocities: Within normal limits. ICA Velocities at the bifurcation Peak systolic 0.65 m/s. End diastolic 0.24 m/s. ICA velocities in the high cervical region Peak systolic a 1.8 m/sec End-diastolic 0.69 m/sec There is mild calcific plaque at the left carotid bifurcation without flow significant stenosis at th e bifurcation. However, in the high cervical region there are elevated velocities with turbulent maya w and calcific plaque, and a left high ICA stenosis may be present. Consider CTA for follow-up. VERTEBRAL ARTERIES: Antegrade flow. Normal waveforms. SUBCLAVIAN ARTERIES: Not evaluated OTHER: No other significant finding. IMPRESSION: Occluded right ICA No stenosis at the left carotid bifurcation. However, there are elevated velocities in the high cerv ical left ICA in an area of calcific plaque. Velocities suggest 50 to 69% stenosis in this area. Co nsider CTA for follow-up. These results were discussed with Dr. Grace COMMENT: Quality ID #[id number]: Velocity criteria are extrapolated from the diameter data as defined by t he Society of Radiologists in Ultrasound Consensus Conference. Radiology 2003: 229; 340-346. TECHNICAL DOCUMENTATION: JOB ID: [id number] [employer]- All Rights Reserved Reading location - IP/workstation name: [email or web address]
--- NOTE | 2017-06-16 17:02 | PDOC H&P ---
History of Present Illness Admission Date/PCP: 06/16/17 12:54 TREVON SKAGGS PA-C Patient complains of: syncope and collapse History of Present Illness: CHARLEY SHERMAN is a 57 year old female with a known history of CAD S/P CABP surgery in September 2016 who had a syncopal episode today in bathroom after voiding . Patient felt dizzy, lightheaded and had sharp precordial chest pain prior to the syncope . She was brought to the ED for evaluation In the ER she was alert awake, a CT head was negative , an EKG was normal sinus rythm She was admitted under hospitalist's service to a telemetry unit for observation Past Medical History Cardiac Medical History: Reports: Coronary Artery Disease, Myocardial Infarction - x2, Hyperlipidema, Hypertension Pulmonary Medical History: Reports: Bronchitis, Chronic Obstructive Pulmonary Disease (COPD) Endocrine Medical History: Reports: Diabetes Mellitus Type 2 GI Medical History: Reports: Gastroesophageal Reflux Disease Psychiatric Medical History: Reports: Bipolar Disorder, Depression Past Surgical History Past Surgical History: Reports: Cardiac Catheterization, Cholecystectomy, Coronary Artery Bypass Graft, Coronary Stent - x2, Tonsillectomy, Tubal Ligation , Vascular Surgery Social History Lives with: Family Smoking Status: Current Every Day Smoker Frequency of Alcohol Use: None Hx Recreational Drug Use: No Drugs: None Hx Prescription Drug Abuse: No - Advance Directive Resuscitation Status: Full Code Surrogate healthcare decision maker:: anibal Giron Family History Family History: Reviewed & Not Pertinent, CAD - Extensive heart disease in mother and brother with brother dying from complications of cardiac stent placement Parental Family History Reviewed: Yes Children Family History Reviewed: Yes Sibling(s) Family History Reviewed.: Yes Medication/Allergy Home Medications: Clopidogrel Bisulfate [Plavix 75 mg Tablet] 75 mg PO DAILY 06/16/17 Insulin Aspart [Novolog Flexpen] 4 units SQ MEALS 06/16/17 Insulin Glargine,Hum.rec.anlog [Lantus Solostar] 25 units SQ QHS 06/16/17 Isosorbide Mononitrate [Imdur 30 mg Tablet.er] 15 mg PO DAILY 06/16/17 Nitroglycerin [Nitrostat 0.4 mg (1/150 Gr) Tabs 25/Bottle] 0.4 mg SL Q5MP PRN Ondansetron HCl [Zofran 4 mg Tablet] 4 mg PO Q8HP PRN 06/16/17 Pantoprazole Sodium [Protonix] 40 mg PO DAILY 06/16/17 Paroxetine HCl [Paxil] 40 mg PO DAILY 06/16/17 Quetiapine Fumarate [Seroquel] 300 mg PO QHS 06/16/17 Allergies/Adverse Reactions: haloperidol [From Haldol] Allergy (Verified 06/16/17 10:36) haloperidol lactate [From Haldol] Allergy (Verified 06/16/17 10:36) Review of Systems Constitutional: ABSENT: chills, fever(s), headache(s), weight gain, weight loss Eyes: ABSENT: visual disturbances Respiratory: ABSENT: cough, hemoptysis Gastrointestinal: ABSENT: abdominal pain, constipation, diarrhea, hematemesis, hematochezia, nausea, vomiting Musculoskeletal: ABSENT: joint swelling Integumentary: ABSENT: rash, wounds Neurological: PRESENT: syncope. ABSENT: abnormal speech, confusion, memory loss , paresthesias Psychiatric: ABSENT: anxiety, depression, homidical ideation, suicidal ideation Hematologic/Lymphatic: ABSENT: easy bleeding, easy bruising Physical Exam Vital Signs: Temp Pulse Resp BP Pulse Ox 97.8 F 63 20 126/91 H 99 06/16/17 14:17 06/16/17 14:17 06/16/17 14:17 06/16/17 14:17 06/16/17 14:17 General appearance: PRESENT: no acute distress, obese Head exam: PRESENT: atraumatic Eye exam: PRESENT: conjunctiva pink, EOMI, PERRLA. ABSENT: scleral icterus Ear exam: PRESENT: normal external ear exam Neck exam: ABSENT: carotid bruit, JVD, lymphadenopathy, thyromegaly Respiratory exam: PRESENT: clear to auscultation ailyn. ABSENT: rales, rhonchi, wheezes Cardiovascular exam: PRESENT: RRR. ABSENT: diastolic murmur, rubs, systolic murmur Pulses: PRESENT: normal dorsalis pedis pul Vascular exam: PRESENT: normal capillary refill GI/Abdominal exam: PRESENT: normal bowel sounds, soft. ABSENT: distended, guarding, mass, organolmegaly, rebound, tenderness Rectal exam: PRESENT: deferred Extremities exam: PRESENT: full ROM. ABSENT: calf tenderness, clubbing, pedal edema Musculoskeletal exam: PRESENT: ambulatory, full ROM. ABSENT: deformity Neurological exam: PRESENT: alert, awake, oriented to person, oriented to place , oriented to time, oriented to situation, CN II-XII grossly intact. ABSENT: motor sensory deficit Psychiatric exam: PRESENT: appropriate affect, normal mood Skin exam: PRESENT: dry, intact, warm. ABSENT: cyanosis, rash Results Laboratory Results: 06/16/17 15:57 Troponin I Cancelled Impressions: Chest X-Ray 06/16/17 10:18 IMPRESSION: No significant interval change. No acute findings. Other findings as noted above Head CT 06/16/17 12:41 IMPRESSION: No significant interval change as compared to the previous study. No acute findings. Other findings as noted above. EVIDENCE OF ACUTE STROKE: NO. Chest/Abdomen CTA 06/16/17 13:44 IMPRESSION: No evidence for pulmonary embolic disease. No acute consolidations or pleural effusions. No pneumothorax is seen. Perihepatic and perisplenic ascitic fluid is identified. Other findings as noted above Carotid Doppler Study 06/16/17 13:45 IMPRESSION: Occluded right ICA No stenosis at the left carotid bifurcation. However, there are elevated velocities in the high cervical left ICA in an area of calcific plaque. Velocities suggest 50 to 69% stenosis in this area. Consider CTA for follow-up. These results were discussed with Dr. Grace Assessment & Plan - Diagnosis (1) CAD (coronary artery disease) Qualifiers: [place] vs. transplanted heart: [place] heart Associated angina: without angina Is this a current diagnosis for this admission?: Yes (2) PVD (peripheral vascular disease) Is this a current diagnosis for this admission?: Yes Plan: patient mentioned had abnormal carotid US 5 months ago (3) Chest pain Qualifiers: Chest pain type: unspecified Qualified Code(s): R07.9 - Chest pain, unspecified Is this a current diagnosis for this admission?: Yes Plan: will cycle troponins CTA chest to R/O acute PE (4) Syncope Qualifiers: Syncope type: unspecified Qualified Code(s): R55 - Syncope and collapse Is this a current diagnosis for this admission?: Yes (5) Chronic kidney disease (CKD), stage III (moderate) Is this a current diagnosis for this admission?: Yes Plan: hydrate after CTA (GFR 40 ) - Time Time Spent with patient: admit as observation to telemetry unit Time Spent: 50 to 70 Minutes - Inpatient Certification Based on my medical assessment, after consideration of the patient's comorbidities, presenting symptoms, or acuity I expect that the services needed warrant INPATIENT care.: No I certify that my determination is in accordance with my understanding of Medicare's requirements for reasonable and necessary INPATIENT services [42 CFR 412.3e].: No
[2017-06-16] MEDS ORDERED: DOCUSATE SODIUM 100 MG CAPSULE PO SCH (18:00)
--- NOTE | 2017-06-16 22:39 | EKG REPORT ---
SEVERITY:- ABNORMAL ECG - SINUS RHYTHM INFERIOR INFARCT, AGE INDETERMINATE LATERAL INFARCT, AGE INDETERMINATE PROLONGED QT INTERVAL : Confirmed by: Ermias Smith 16-Jun-2017 22:38:55
[2017-06-17] MEDS ORDERED: LANSOPRAZOLE 30 MG TAB.RAP.DR PO SCH (06:00)
[2017-06-17] MEDS ORDERED: ENOXAPARIN SODIUM INJ 40 MG/0.4 ML DISP.SYRIN SUBCUT SCH ×2 (10:00)
== END 2017-06-16 17:10 | disposition left against medical advice (07) ==
LOC: ER 10:15 → EH 12:54 → 4N 14:47
PROVIDERS: ADMIT Internal Medicine; ATTEND Internal Medicine
DX: R07.2 Precordial pain (principal); R55 Syncope and collapse; I25.10 Atherosclerotic heart disease of native coronary artery without angina pectoris; Z95.1 Presence of aortocoronary bypass graft; I73.9 Peripheral vascular disease, unspecified; R42 Dizziness and giddiness; F17.200 Nicotine dependence, unspecified, uncomplicated; I25.2 Old myocardial infarction; E11.51 Type 2 diabetes mellitus with diabetic peripheral angiopathy without gangrene; E11.22 Type 2 diabetes mellitus with diabetic chronic kidney disease; N18.3 Chronic kidney disease, stage 3 (moderate); I12.9 Hypertensive chronic kidney disease with stage 1 through stage 4 chronic kidney disease, or unspecified chronic kidney disease; Z95.5 Presence of coronary angioplasty implant and graft; Z82.49 Family history of ischemic heart disease and other diseases of the circulatory system; Z90.49 Acquired absence of other specified parts of digestive tract; Z79.4 Long term (current) use of insulin; Z79.899 Other long term (current) drug therapy; Z79.02 Long term (current) use of antithrombotics/antiplatelets; R11.0 Nausea; J44.9 Chronic obstructive pulmonary disease, unspecified; R05 Cough; R00.1 Bradycardia, unspecified; K21.9 Gastro-esophageal reflux disease without esophagitis; Z87.442 Personal history of urinary calculi; Z86.73 Personal history of transient ischemic attack (TIA), and cerebral infarction without residual deficits; Z98.890 Other specified postprocedural states
CPT/HCPCS: 93005; 99285; 96365; 36415; 87086; 82553; 82962; 82550; 83735; 85025; 80053; 81001; 84484; 93880; 71045; 70450; 71275; 93010; J3490 ×2; J0696

== ENCOUNTER 2017-06-17 15:00 | Emergency (ER) | payer MEDICAID ==
[2017-06-17 15:25] VITALS: BP 140/82
== END 2017-06-17 17:50 | disposition left against medical advice (07) ==
LOC: ER 15:00
DX: Z53.21 Procedure and treatment not carried out due to patient leaving prior to being seen by health care provider (principal)

== ENCOUNTER 2017-06-21 22:43 | Emergency (ER) | payer MEDICAID ==
--- NOTE | 2017-06-21 22:57 | ER Document Report ---
ED General - General Stated Complaint: CHEST PAIN Time Seen by Provider: 06/21/17 22:52 Notes: Patient is 57-year-old female presents with complaint of chest pain. She has a history of chronic recurrent chest pain. She also has history of coronary bypass 11 months ago at [facility]. She was recently here on June 16 and admitted. Right after she was admitted she left AMA. She frequently does leave AMA and reviewing her records. She says chest pain she is having also pressure which pain that shoots across chest into her left shoulder. No pain into her back. No difficulty breathing. No fevers. No recent infections. Nitro has helped some but she still has some pain now. She had aspirin in the ambulance. No other complaints at this time. TRAVEL OUTSIDE OF THE [place] IN LAST 30 DAYS: No - Related Data Allergies/Adverse Reactions: haloperidol [From Haldol] Allergy (Verified 06/16/17 10:36) haloperidol lactate [From Haldol] Allergy (Verified 06/16/17 10:36) Past Medical History - Social History Smoking Status: Unknown if Ever Smoked Frequency of alcohol use: None Drug Abuse: None Family History: Reviewed & Not Pertinent, CAD - Extensive heart disease in mother and brother with brother dying from complications of cardiac stent placement - Past Medical History Cardiac Medical History: Reports: Hx Coronary Artery Disease, Hx Heart Attack - x2, Hx Hypercholesterolemia, Hx Hypertension Pulmonary Medical History: Reports: Hx Bronchitis, Hx COPD Neurological Medical History: Reports: Hx Cerebrovascular Accident Endocrine Medical History: Reports: Hx Diabetes Mellitus Type 2 Renal/ Medical History: Reports: Hx Kidney Stones. Denies: Hx Peritoneal Dialysis GI Medical History: Reports: Hx Gastroesophageal Reflux Disease Psychiatric Medical History: Reports: Hx Bipolar Disorder, Hx Depression, Hx Schizophrenia Past Surgical History: Reports: Hx Cardiac Catheterization, Hx Cardiac Surgery - stents, CABG 09/2016, Hx Cholecystectomy, Hx Coronary Artery Bypass Graft, Hx Coronary Stent - x2, Hx Thyroid Surgery, Hx Tonsillectomy, Hx Tubal Ligation, Hx Urinary Tract Surgery, Hx Vascular Surgery - Immunizations Hx Diphtheria, Pertussis, Tetanus Vaccination: Yes Hx Pneumococcal Vaccination: 11/29/16 Review of Systems - Review of Systems Notes: My Normal Review Basic REVIEW OF SYSTEMS: CONSTITUTIONAL : Denies fever, chills, or sweats. Denies recent illness. EENT: Denies eye, ear, throat, or mouth pain or symptoms. Denies nasal or sinus congestion. CARDIOVASCULAR: Has chest pain RESPIRATORY: Denies cough, cold, or chest congestion. Denies shortness of breath, difficulty breathing, or wheezing. GASTROINTESTINAL: Denies abdominal pain. Denies nausea, vomiting, or diarrhea. Denies constipation. GENITOURINARY: Denies difficulty urinating, painful urination, burning, frequency, or blood in urine. MUSCULOSKELETAL: Denies neck or back pain or joint pain or swelling. SKIN: Denies rash or skin lesions. NEUROLOGICAL: Denies altered mental status or loss of consciousness. Denies headache. Denies weakness or paralysis or loss of use of either side. Denies problems with gait or speech. Denies sensory or motor loss. ALL OTHER SYSTEMS REVIEWED AND NEGATIVE. Physical Exam - Vital signs Vitals: Temp BP 98.1 F 135/81 H 06/21/17 22:46 06/21/17 22:46 - Notes Notes: General Appearance: Well nourished, alert, cooperative, no acute distress, no obvious discomfort. Well-appearing Vitals: reviewed, See vital signs table. Head: no swelling or tenderness to the head Eyes: PERRL, EOMI, Conjuctiva clear Mouth: No decreasd moisture Lungs: No wheezing, No rales, No rhonci, No accessory muscle use, good air exchange bilaterally. Heart: Normal rate, Regular rythm, No murmur, no rub Abdomen: Normal BS, soft, No rigidity, No abdominal tenderness, No guarding, no rebound, no abdominal masses, no organomegaly Extremities: strength 5/5 in all extremities, good pulses in all extremities, no swelling or tenderness in the extremities, no edema. Skin: warm, dry, appropriate color, no rash Neuro: speech clear, oriented x 3, normal affect, responds appropriately to questions. Course - Vital Signs Vital signs: Temp Pulse Resp BP Pulse Ox 98.1 F 17 158/98 H 97 06/21/17 22:46 06/22/17 00:01 06/22/17 00:01 06/22/17 00:01 - Laboratory Result Diagrams: 06/21/17 23:15 06/21/17 23:15 Laboratory results interpreted by me: 06/21/17 06/21/17 23:15 23:15 Hgb 10.3 L Hct 32.3 L MCV 75 L MCH 24.0 L RDW 26.1 H Creatinine 1.54 H Est GFR ( Amer) 42 L Est GFR (Non-Af Amer) 34 L Glucose 240 H Direct Bilirubin 0.5 H - EKG Interpretation by Me Additional EKG results interpreted by me: 06/21/17 22:57 EKG is reviewed and interpreted by me. EKG shows sinus rhythm with a rate of [address] segment elevation. Very minimal ST segment depression in leads I. This is unchanged comparison to previous EKG from June 16, 2017. OH interval, QRS duration are within normal range. QTc interval is prolonged. 06/21/17 22:58 Procedures - Additional Procedures IV access Additional Procedures: IV insertion - Nurse's 1 able to obtain peripheral IV access and therefore I placed a 20-gauge IV Angiocath in the right internal jugular. Good dark nonpulsatile blood return. No comp occasions. Discharge - Discharge Clinical Impression: Chest pain Qualifiers: Chest pain type: unspecified Qualified Code(s): R07.9 - Chest pain, unspecified Condition: Stable Disposition: ADMITTED OBSERVATION Admitting Provider: Hospitalist Unit Admitted: Telemetry
[2017-06-21] MEDS ORDERED: NITROGLYCERIN 2% OINTMENT 1 GM PACKET TP ONE (23:12)
[2017-06-21 23:31] LABS: ABSOLUTE EOSINOPHILS # (AUTO) 0.1 10^3/uL (0.0-0.6); ABSOLUTE LYMPHOCYTES (AUTO) 2.7 10^3/uL (0.5-4.7); ABSOLUTE MONOCYTES (AUTO) 0.7 10^3/uL (0.1-1.4); BASOPHILS % (AUTO) 0.4 % (0-2); EOSINOPHILS % (AUTO) 1.8 % (0-6); HEMATOCRIT 32.3 % (36.0-47.0); HEMOGLOBIN 10.3 g/dL (12.0-15.5); LYMPHOCYTES % (AUTO) 36.4 % (13-45); MEAN CORPUSCULAR VOLUME 75 fl (80-97); MONOCYTES % (AUTO) 8.7 % (3-13); PLATELET COUNT 216 10^3/uL (150-450); RED CELL DISTRIBUTION WIDTH 26.1 % (11.5-14.0); SEGMENTED NEUTROPHILS % (AUTO) 52.7 % (42-78); TOTAL CELLS COUNTED % (AUTO) 100 %; WHITE BLOOD COUNT 7.5 10^3/uL (4.0-10.5)
[2017-06-21 23:40] LABS: ALANINE AMINOTRANSFERASE 16 U/L (9-52); ALBUMIN 3.5 g/dL (3.5-5.0); ALKALINE PHOSPHATASE 113 U/L (38-126); ANION GAP 15 (5-19); ASPARTATE AMINO TRANSFERASE 20 U/L (14-36); BILIRUBIN,DIRECT 0.5 mg/dL (0.0-0.4); BILIRUBIN,TOTAL 0.5 mg/dL (0.2-1.3); BLOOD UREA NITROGEN 14 mg/dL (7-20); CARBON DIOXIDE 22 mmol/L (22-30); CHLORIDE 104 mmol/L (98-107); CREATINE KINASE 45 U/L (30-135); GLUCOSE 240 mg/dL (75-110); POTASSIUM 4.2 mmol/L (3.6-5.0); SODIUM 141.4 mmol/L (137-145); TOTAL PROTEIN 6.7 g/dL (6.3-8.2)
[2017-06-21 23:53] LABS: ANISOCYTOSIS 3+; CREATINE KINASE MB 0.98 ng/mL (<4.55); HYPOCHROMASIA 2+; POLYCHROMASIA SLIGHT
[2017-06-21 23:54] LABS: TROPONIN I 0.04 ng/mL
[2017-06-21 23:55] LABS: OVALOCYTES SLIGHT; TARGET CELLS 1+
[2017-06-21 23:56] LABS: TEAR DROP CELLS SLIGHT
[2017-06-21 23:57] LABS: PLATELET COMMENT ADEQUATE
[2017-06-22] MEDS ORDERED: ALBUTEROL SULFATE 0.083% NEB 2.5 MG/3 ML AMPUL NEB PRN (01:20)
[2017-06-22] MEDS ORDERED: DEXTROSE 40% GEL 15 GM TUBE PO PRN ×2 (01:20)
[2017-06-22] MEDS ORDERED: GLUCAGON,HUMAN RECOMB 1 MG INJ SUBCUT PRN (01:20)
[2017-06-22] MEDS ORDERED: DEXTROSE 50%-WATER 25 GM/50 ML DISP.SYRIN IV PRN ×2 (01:20)
[2017-06-22] MEDS ORDERED: PROMETHAZINE HCL INJ 25 MG/1 ML VIAL IV PRN (01:20)
[2017-06-22] MEDS ORDERED: ACETAMINOPHEN 325 MG TABLET PO PRN (01:20)
[2017-06-22 02:08] VITALS: BP 145/89
--- NOTE | 2017-06-22 05:16 | RADIOLOGY REPORT (SQ) ---
EXAM DESCRIPTION: CHEST SINGLE VIEW CLINICAL HISTORY: 57 years Female, cp COMPARISON: 4.18.18 NUMBER OF VIEWS/TECHNIQUE: 1/AP LIMITATIONS: None. FINDINGS: Mild interstitial markings, prominent cardiac silhouette, small left seventh posterior rib deformity, and sternotomy. Stable. IMPRESSION: No acute cardiopulmonary findings.
[2017-06-22] MEDS ORDERED: HEPARIN SOD (PORCINE) 5,000 UNIT/ML 1 ML SYRINGE SUBCUT SCH (06:00)
[2017-06-22] MEDS ORDERED: LANSOPRAZOLE 30 MG TAB.RAP.DR PO SCH (06:00)
--- NOTE | 2017-06-22 07:51 | EKG REPORT ---
SEVERITY:- ABNORMAL ECG - SINUS RHYTHM INFERIOR INFARCT, OLD CONSIDER POSTERIOR WALL INVOLVEMENT LATERAL LEADS ARE ALSO INVOLVED PROLONGED QT INTERVAL : Confirmed by: Agustin Crawford MD 22-Jun-2017 07:51:03
== END 2017-06-22 07:42 | disposition left against medical advice (07) ==
LOC: ER 22:43 → UNDOADMOB 06-22 01:09 → OBSVTOIN 06-22 01:09 → EH 06-22 01:09 → INTOOBSV 06-22 01:09 → ER 06-22 07:42 → UNDODISIN 06-22 07:42
DX: R07.89 Other chest pain (principal); I25.10 Atherosclerotic heart disease of native coronary artery without angina pectoris; I10 Essential (primary) hypertension; I25.2 Old myocardial infarction; J44.9 Chronic obstructive pulmonary disease, unspecified; E11.9 Type 2 diabetes mellitus without complications; Z95.5 Presence of coronary angioplasty implant and graft; Z95.1 Presence of aortocoronary bypass graft; Z88.8 Allergy status to other drugs, medicaments and biological substances; Z82.49 Family history of ischemic heart disease and other diseases of the circulatory system
CPT/HCPCS: 93005; 99285; 36415; 82553; 82550; 85025; 80053; 84484; 71045; 93010; J3490

== ENCOUNTER 2017-06-22 16:29 | Emergency (ER) | payer MEDICAID ==
--- NOTE | 2017-06-22 17:09 | ER Document Report ---
ED Medical Screen (RME) - General Chief Complaint: Headache Stated Complaint: HEADACHE Time Seen by Provider: 06/22/17 16:59 Mode of Arrival: Medic Information source: Patient Notes: 57-year-old female brought in by ambulance her brother was present when she complained of chest pain midsternal after eating a [employer] hamburger. She got up to go to the bathroom and had a syncopal episode in the hallway when he got to her she was unconscious. When she woke up after he was putting on her on the cheek she was complaining of a left-sided frontal headache. She is complaining of a headache and chest pain at this time. The patient did leave AGAINST MEDICAL ADVICE yesterday from the emergency department when she got angry at the hospitalist. She was here in the emergency department for chest pain and it was a chest pain admission intended. TRAVEL OUTSIDE OF THE [place] IN LAST 30 DAYS: No - Related Data Allergies/Adverse Reactions: haloperidol [From Haldol] Allergy (Verified 06/16/17 10:36) haloperidol lactate [From Haldol] Allergy (Verified 06/16/17 10:36) Past Medical History - Social History Family history: Reviewed & Not Pertinent - Past Medical History Cardiac Medical History: Reports: Hx Coronary Artery Disease, Hx Heart Attack - x2, Hx Hypercholesterolemia, Hx Hypertension Pulmonary Medical History: Reports: Hx Bronchitis, Hx COPD Neurological Medical History: Reports: Hx Cerebrovascular Accident Endocrine Medical History: Reports: Hx Diabetes Mellitus Type 2 Renal/ Medical History: Reports: Hx Kidney Stones. Denies: Hx Peritoneal Dialysis GI Medical History: Reports: Hx Gastroesophageal Reflux Disease Psychiatric Medical History: Reports: Hx Bipolar Disorder, Hx Depression, Hx Schizophrenia Past Surgical History: Reports: Hx Cardiac Catheterization, Hx Cardiac Surgery - stents, CABG 09/2016, Hx Cholecystectomy, Hx Coronary Artery Bypass Graft, Hx Coronary Stent - x2, Hx Thyroid Surgery, Hx Tonsillectomy, Hx Tubal Ligation, Hx Urinary Tract Surgery, Hx Vascular Surgery - Immunizations Hx Diphtheria, Pertussis, Tetanus Vaccination: Yes History of Influenza Vaccine for 11/2016 - 04/2017 Season: Yes Influenza Administration Date for 11/2016 - 04/2017 Season: 11/29/16
[2017-06-22] MEDS ORDERED: ASPIRIN 81 MG TABLET, CHEWABLE PO ONE (17:10)
--- NOTE | 2017-06-22 17:45 | RADIOLOGY REPORT (SQ) ---
EXAM DESCRIPTION: CHEST SINGLE VIEW COMPLETED DATE/TIME: 06/22/2017 5:35 pm REASON FOR STUDY: chest pain COMPARISON: 06/21/2017. EXAM PARAMETERS: NUMBER OF VIEWS: One view. TECHNIQUE: Single frontal radiographic view of the chest acquired. RADIATION DOSE: NA LIMITATIONS: None. FINDINGS: LUNGS AND PLEURA: No opacities, masses or pneumothorax. No pleural effusion. MEDIASTINUM AND HILAR STRUCTURES: No masses. Contour normal. HEART AND VASCULAR STRUCTURES: Heart upper limits of normal in size. Normal vasculature. BONES: No acute findings. HARDWARE: Sternotomy wires and coronary bypass markers. OTHER: No other significant finding. IMPRESSION: NO ACUTE RADIOGRAPHIC FINDING IN THE CHEST. TECHNICAL DOCUMENTATION: JOB ID: [id number] [employer]- All Rights Reserved Reading location - IP/workstation name: [email or web address]
--- NOTE | 2017-06-22 17:49 | ER Document Report ---
ED Headache - General Chief Complaint: Headache Stated Complaint: HEADACHE Time Seen by Provider: 06/22/17 16:59 Mode of Arrival: Ambulatory Information source: Patient TRAVEL OUTSIDE OF THE [place] IN LAST 30 DAYS: No - HPI Patient complains to provider of: Headache, Other - cp, syncope Notes: Patient is here with complaints of headache, dizziness, syncope, chest pain. Patient is a long extensive history including CABG, [place], high cholesterol, hypertension. She was recently seen on the for chest pain and a very similar episode of syncope and was noted to have a right internal carotid occlusion on ultrasound. Patient ended up leaving AMA after being upset with the hospitalist. In reviewing her records, the patient is seen here multiple times for multiple reasons and typically ends up leaving AMA. She states that today she had a syncopal episode in the hallway. Since that time she has had a headache and felt dizzy has had left-sided chest pain. She denies shortness of breath. No nausea, vomiting, diarrhea. No unilateral numbness, tingling or weakness. No blurred or loss vision. No other complaints at this time. - Related Data Allergies/Adverse Reactions: haloperidol [From Haldol] Allergy (Verified 06/16/17 10:36) haloperidol lactate [From Haldol] Allergy (Verified 06/16/17 10:36) Past Medical History - General Information source: Patient - Social History Smoking Status: Unknown if Ever Smoked Family History: Reviewed & Not Pertinent, CAD - Extensive heart disease in mother and brother with brother dying from complications of cardiac stent placement Patient has suicidal ideation: No Patient has homicidal ideation: No - Past Medical History Cardiac Medical History: Reports: Hx Coronary Artery Disease, Hx Heart Attack - x2, Hx Hypercholesterolemia, Hx Hypertension Pulmonary Medical History: Reports: Hx Bronchitis, Hx COPD Neurological Medical History: Reports: Hx Cerebrovascular Accident Endocrine Medical History: Reports: Hx Diabetes Mellitus Type 2 Renal/ Medical History: Reports: Hx Kidney Stones. Denies: Hx Peritoneal Dialysis GI Medical History: Reports: Hx Gastroesophageal Reflux Disease Psychiatric Medical History: Reports: Hx Bipolar Disorder, Hx Depression, Hx Schizophrenia Past Surgical History: Reports: Hx Cardiac Catheterization, Hx Cardiac Surgery - stents, CABG 09/2016, Hx Cholecystectomy, Hx Coronary Artery Bypass Graft, Hx Coronary Stent - x2, Hx Thyroid Surgery, Hx Tonsillectomy, Hx Tubal Ligation, Hx Urinary Tract Surgery, Hx Vascular Surgery - Immunizations Hx Diphtheria, Pertussis, Tetanus Vaccination: Yes Hx Pneumococcal Vaccination: 11/29/16 Review of Systems - Review of Systems -: Yes All other systems reviewed and negative Physical Exam - Vital signs Vitals: Temp Pulse Resp BP Pulse Ox 98 F 57 L 16 122/70 99 06/22/17 17:10 06/22/17 17:10 06/22/17 17:10 06/22/17 17:10 06/22/17 17:10 - Notes Notes: GENERAL: alert, cooperative, nontoxic, no distress. HEAD: normocephalic, atraumatic EYES: conjunctiva pink without discharge, no external redness or swelling. Pupils are equal, round, reactive to light. EARS: no external swelling, no external redness NOSE: atraumatic, no external swelling MOUTH/THROAT: mucous membranes moist and pink, posterior pharynx without erythema, swelling, exudate. No trismus or drooling. NECK: soft, supple, full range of motion, no meningismus. CHEST: no distress, lungs clear and equal throughout. No wheezing, rales, rhonchi. CARDIAC: regular rate and rhythm, no murmur, normal capillary refill, normal pulses. No peripheral edema noted. BACK: full range of motion, no CVA tenderness. EXTREMITIES: full range of motion of all extremities. No redness, no swelling. NEURO: alert and oriented x 3, cranial nerves II through XII are grossly intact. Upper and lower extremities are equal throughout. Normal sensation. No focal deficits, full range of motion of all extremities. normal finger to nose. NIH stroke score of 0. PYSCH: appropriate mood, affect. Patient is cooperative. SKIN: pink, warm, dry, no rash. Course - Re-evaluation Re-evalutation: 06/22/17 19:18 Patient is nontoxic appearing with stable vitals. The patient is here with complaints of headache, syncope, chest pain. Patient has been seen for this multiple times in the past and was actually here last night and was going to be admitted for chest pain rule out but left AMA because she was upset with the hospitalist. She returned today with another syncopal episode with headache, dizziness, chest pain. EKG is unremarkable. Troponin is at her baseline. Renal function actually seems to be slowly improving over time. CT noncontrast shows old stroke with no acute findings. Chest x-ray is unremarkable. Patient was noted to have an occlusion of the right internal carotid artery on ultrasound in the previous visit and they recommended CTA. I had ordered a CT of the head and neck. I want to discuss the current findings with the patient and the fact that we would like to order a CTA of her head and admit her to the hospital for further evaluation, the patient states that she does not want to stay to get the CTA done or stay in the hospital. A long discussion with the patient regarding the fact that she has the potential for becoming unstable and potentially having worsening stroke type symptoms or a heart attack and potentially even passing away. Patient verbalized an understanding of this and states that she would still like to sign out AGAINST MEDICAL ADVICE. Patient will be discharged AGAINST MEDICAL ADVICE with instructions to follow-up with her primary care doctor at the next available appointment and to return the emergency department immediately if she has any further symptoms. The patient and/or family have decided to leave against medical advice. The patient and/or family are of sound mind to make this decision. The risks of leaving were discussed with the patient and/or family who verbalized an understanding of these risks. The possibility of worsening condition, chance of increased morbidity, disability, mortality, and even were discussed. The patient and/or family still choose to leave against medical advice. Strict return instructions were given. They were also instructed to return to the emergency department for any concerns not outlined in the return instructions. - Vital Signs Vital signs: Temp Pulse Resp BP Pulse Ox 98 F 57 L 16 150/96 H 98 06/22/17 17:10 06/22/17 17:10 06/22/17 18:01 06/22/17 18:01 06/22/17 18:01 - Laboratory Result Diagrams: 06/22/17 17:52 06/22/17 17:52 Laboratory results interpreted by me: 06/22/17 06/22/17 17:52 17:52 Hgb 10.9 L Hct 34.1 L MCV 74 L MCH 23.9 L RDW 26.9 H Creatinine 1.36 H Est GFR ( Amer) 48 L Est GFR (Non-Af Amer) 40 L Glucose 165 H Direct Bilirubin 0.7 H - Diagnostic Test Radiology reviewed: Image reviewed, Reports reviewed - CT brain shows old stroke with no acute findings. Chest x-ray shows no acute findings. - EKG Interpretation by Nh Rate: Normal Rhythm: NSR When compared to previous EKG there are: No significant change Discharge - Discharge Clinical Impression: Dizziness Syncope Qualifiers: Syncope type: unspecified Qualified Code(s): R55 - Syncope and collapse Headache Qualifiers: Headache type: unspecified Headache chronicity pattern: acute headache Intractability: not intractable Qualified Code(s): R51 - Headache Chest pain Qualifiers: Chest pain type: unspecified Qualified Code(s): R07.9 - Chest pain, unspecified Condition: Stable Disposition: AGAINST MEDICAL ADVICE Instructions: Headache ([facility]), Chest Pain of Unclear Cause ([facility]), Dizziness ([facility] ) Additional Instructions: Follow-up with your doctor at the next available appointment for further evaluation. Please return the emergency department immediately for worsening symptoms, persistent vomiting, numbness, tingling, weakness on one side your body, worsening chest pain, or for any further concerns. Your blood pressure was elevated during today's visit. Have this rechecked with your doctor. Forms: Elevated Blood Pressure, Smoking Cessation Education Referrals: [facility] [Provider Group] - Follow up as needed
--- NOTE | 2017-06-22 17:54 | RADIOLOGY REPORT (SQ) ---
EXAM DESCRIPTION: CT HEAD WITHOUT COMPLETED DATE/TIME: 06/22/2017 5:41 pm REASON FOR STUDY: head injury,syncope episode COMPARISON: 06/16/2017 TECHNIQUE: Axial images acquired through the brain without intravenous contrast. Images reviewed wi th bone, brain and subdural windows. Additional sagittal and coronal reconstructions were generated. Images stored on PACS. All CT scanners at this facility use dose modulation, iterative reconstruction, and/or weight based d osing when appropriate to reduce radiation dose to as low as reasonably achievable (ALARA). [facility]: Dose Right [facility]: CareDose [facility]: Dose Right [facility]: Teradose 4D [facility]: [employer] RADIATION DOSE: CT Rad equipment meets quality standard of care and radiation dose reduction techniq ues were employed. CTDIvol: 53.2 mGy. DLP: 991 mGy-cm. mGy. LIMITATIONS: None. FINDINGS: VENTRICLES: Normal size and contour. CEREBRUM: There is a stable, small old right posterior parietal infarct. There is no hemorrhage. Th ere is no midline shift or mass effect. Normal villatoro/white matter differentiation. No areas of low den sity in the white matter. CEREBELLUM: No masses. No hemorrhage. No alteration of density. No evidence for acute infarction. EXTRAAXIAL SPACES: No fluid collections. No masses. ORBITS AND GLOBE: No intra- or extraconal masses. Normal contour of globe without masses. CALVARIUM: No fracture. PARANASAL SINUSES: No fluid or mucosal thickening. SOFT TISSUES: No mass or hematoma. OTHER: No other significant finding. IMPRESSION: Old right parietal infarct with no acute intracranial imaging findings. EVIDENCE OF ACUTE STROKE: NO. COMMENT: Quality ID # [id number]: Final reports with documentation of one or more dose reduction techniques (e.g., Automated exposure control, adjustment of the mA and/or kV according to patient size, use of iterative reconstruction technique) TECHNICAL DOCUMENTATION: JOB ID: [id number] [employer]- All Rights Reserved Reading location - IP/workstation name: [email or web address]
[2017-06-22 18:27] LABS: ABSOLUTE BASOPHILS # (AUTO) 0.1 10^3/uL (0.0-0.2); ABSOLUTE EOSINOPHILS # (AUTO) 0.1 10^3/uL (0.0-0.6); ABSOLUTE MONOCYTES (AUTO) 0.7 10^3/uL (0.1-1.4); ABSOLUTE NEUT (AUTO) 3.1 10^3/uL (1.7-8.2); BASOPHILS % (AUTO) 0.7 % (0-2); EOSINOPHILS % (AUTO) 1.9 % (0-6); HEMATOCRIT 34.1 % (36.0-47.0); HEMOGLOBIN 10.9 g/dL (12.0-15.5); MEAN CORPUSCULAR HEMOGLOBIN 23.9 pg (27.0-33.4); MEAN CORPUSCULAR HGB CONC 32.1 g/dL (32.0-36.0); MEAN CORPUSCULAR VOLUME 74 fl (80-97); MONOCYTES % (AUTO) 9.7 % (3-13); PLATELET COUNT 213 10^3/uL (150-450); RED BLOOD COUNT 4.58 10^6/uL (3.72-5.28); RED CELL DISTRIBUTION WIDTH 26.9 % (11.5-14.0); SEGMENTED NEUTROPHILS % (AUTO) 44.7 % (42-78); TOTAL CELLS COUNTED % (AUTO) 100 %; WHITE BLOOD COUNT 6.9 10^3/uL (4.0-10.5)
[2017-06-22 18:37] LABS: ALANINE AMINOTRANSFERASE 22 U/L (9-52); ALBUMIN 3.7 g/dL (3.5-5.0); ALKALINE PHOSPHATASE 108 U/L (38-126); ANION GAP 14 (5-19); ASPARTATE AMINO TRANSFERASE 33 U/L (14-36); BILIRUBIN,DIRECT 0.7 mg/dL (0.0-0.4); BILIRUBIN,TOTAL 0.8 mg/dL (0.2-1.3); BLOOD UREA NITROGEN 16 mg/dL (7-20); CALCIUM 9.2 mg/dL (8.4-10.2); CARBON DIOXIDE 25 mmol/L (22-30); CHLORIDE 106 mmol/L (98-107); CREATINE KINASE 58 U/L (30-135); GLUCOSE 165 mg/dL (75-110); POTASSIUM 4.4 mmol/L (3.6-5.0); SODIUM 144.8 mmol/L (137-145); TOTAL PROTEIN 7.3 g/dL (6.3-8.2)
[2017-06-22] MEDS ORDERED: NORMAL SALINE 1000 ML 1,000 ML IV ONE (18:47)
[2017-06-22 18:49] LABS: CREATINE KINASE MB 1.31 ng/mL (<4.55)
[2017-06-22 18:51] LABS: TROPONIN I 0.036 ng/mL
[2017-06-22 18:56] LABS: ANISOCYTOSIS 3+; HYPOCHROMASIA 2+; OVALOCYTES SLIGHT; PLATELET COMMENT ADEQUATE; PLATELET LARGE PRESENT; POIKILOCYTOSIS 1+; POLYCHROMASIA 1+; SCHISTOCYTES SLIGHT; TARGET CELLS SLIGHT
[2017-06-22 18:57] VITALS: BP 150/96
--- NOTE | 2017-06-23 07:30 | EKG REPORT ---
SEVERITY:- ABNORMAL ECG - SINUS RHYTHM INFERIOR INFARCT, OLD BORDERLINE PROLONGED QT INTERVAL NONSPECIFIC LATERAL ST-T CHANGES : Confirmed by: Agustin Crawford MD 23-Jun-2017 07:29:49
== END 2017-06-22 19:26 | disposition left against medical advice (07) ==
LOC: ER 16:29
DX: R51 Headache (principal); R07.9 Chest pain, unspecified; R55 Syncope and collapse; R42 Dizziness and giddiness; I25.10 Atherosclerotic heart disease of native coronary artery without angina pectoris; E78.00 Pure hypercholesterolemia, unspecified; I10 Essential (primary) hypertension; E11.9 Type 2 diabetes mellitus without complications; Z86.73 Personal history of transient ischemic attack (TIA), and cerebral infarction without residual deficits; I25.2 Old myocardial infarction; Z87.442 Personal history of urinary calculi; Z95.1 Presence of aortocoronary bypass graft
CPT/HCPCS: 36415; 70450; 71045; 80053; 82550; 82553; 84484; 85025; 93005; 93010; 99284

== ENCOUNTER 2017-07-03 18:29 | Emergency (ER) | payer MEDICAID ==
--- NOTE | 2017-07-03 19:05 | ER Document Report ---
ED Medical Screen (RME) - General Chief Complaint: Chest Pain Stated Complaint: BACK PAIN Time Seen by Provider: 07/03/17 18:59 Notes: 57-year-old female patient comes emergency room by EMS stating that "the liters in my neck are clogged and hurting". She also complains of left kidney hurting off and on and kidneys being backed up. Chest pain today. Headache. She also reports she was in the emergency room at [facility] last week and diagnosed with a light stroke. She has been to this emergency room 7 times in the past month for various pain related complaints. I have greeted and performed a rapid initial assessment of this patient. A comprehensive ED assessment and evaluation of the patient, analysis of test results and completion of the medical decision making process will be conducted by additional ED providers. TRAVEL OUTSIDE OF THE [place] IN LAST 30 DAYS: No - Related Data Allergies/Adverse Reactions: haloperidol [From Haldol] Allergy (Verified 07/03/17 18:59) haloperidol lactate [From Haldol] Allergy (Verified 07/03/17 18:59) Past Medical History - Social History Chew tobacco use (# tins/day): No Frequency of alcohol use: None Drug Abuse: None Family history: Reviewed & Not Pertinent - Past Medical History Cardiac Medical History: Reports: Hx Coronary Artery Disease, Hx Heart Attack - x2, Hx Hypercholesterolemia, Hx Hypertension Pulmonary Medical History: Reports: Hx Bronchitis, Hx COPD Neurological Medical History: Reports: Hx Cerebrovascular Accident Endocrine Medical History: Reports: Hx Diabetes Mellitus Type 2 Renal/ Medical History: Reports: Hx Kidney Stones. Denies: Hx Peritoneal Dialysis GI Medical History: Reports: Hx Gastroesophageal Reflux Disease Psychiatric Medical History: Reports: Hx Bipolar Disorder, Hx Depression, Hx Schizophrenia Past Surgical History: Reports: Hx Cardiac Catheterization, Hx Cardiac Surgery - stents, CABG 09/2016, Hx Cholecystectomy, Hx Coronary Artery Bypass Graft, Hx Coronary Stent - x2, Hx Thyroid Surgery, Hx Tonsillectomy, Hx Tubal Ligation, Hx Urinary Tract Surgery, Hx Vascular Surgery - Immunizations Hx Diphtheria, Pertussis, Tetanus Vaccination: Yes History of Influenza Vaccine for 11/2016 - 04/2017 Season: Yes Influenza Administration Date for 11/2016 - 04/2017 Season: 11/29/16 Physical Exam - Vital signs Vitals: Temp Pulse Resp BP Pulse Ox 98.1 F 73 20 161/83 H 98 07/03/17 18:43 07/03/17 18:43 07/03/17 18:43 07/03/17 18:43 07/03/17 18:43 Course - Vital Signs Vital signs: Temp Pulse Resp BP Pulse Ox 98.1 F 73 20 161/83 H 98 07/03/17 18:43 07/03/17 18:43 07/03/17 18:43 07/03/17 18:43 07/03/17 18:43
[2017-07-03 20:09] LABS: APPEARANCE,URINE CLOUDY; BILIRUBIN,URINE NEGATIVE (NEGATIVE); COLOR,URINE YELLOW; GLUCOSE, URINE 50 mg/dL (NEGATIVE); KETONES,URINE NEGATIVE (NEGATIVE); LEUKOCYTE ESTERASE,URINE LARGE (NEGATIVE); NITRITE,URINE NEGATIVE (NEGATIVE); PROTEIN,URINE 30 mg/dL (NEGATIVE); URINE SPECIFIC GRAVITY 1.011
--- NOTE | 2017-07-03 20:22 | EKG REPORT ---
SEVERITY:- ABNORMAL ECG - SINUS RHYTHM SHORT [place] INTERVAL, ACCELERATED AV CONDUCTION INFERIOR INFARCT, OLD LATERAL INFARCT, AGE INDETERMINATE CONSIDER ANTERIOR INFARCT : Confirmed by: Ermias Smith 03-Jul-2017 20:21:49
[2017-07-03 20:50] LABS: ABSOLUTE BASOPHILS # (AUTO) 0.1 10^3/uL (0.0-0.2); ABSOLUTE EOSINOPHILS # (AUTO) 0.1 10^3/uL (0.0-0.6); ABSOLUTE LYMPHOCYTES (AUTO) 3.1 10^3/uL (0.5-4.7); ABSOLUTE MONOCYTES (AUTO) 0.9 10^3/uL (0.1-1.4); ABSOLUTE NEUT (AUTO) 5.2 10^3/uL (1.7-8.2); BASOPHILS % (AUTO) 0.7 % (0-2); EOSINOPHILS % (AUTO) 1.1 % (0-6); HEMATOCRIT 34.9 % (36.0-47.0); HEMOGLOBIN 11.2 g/dL (12.0-15.5); LYMPHOCYTES % (AUTO) 33.1 % (13-45); MEAN CORPUSCULAR HEMOGLOBIN 24.1 pg (27.0-33.4); MEAN CORPUSCULAR HGB CONC 32.1 g/dL (32.0-36.0); MEAN CORPUSCULAR VOLUME 75 fl (80-97); PLATELET COUNT 306 10^3/uL (150-450); RED BLOOD COUNT 4.64 10^6/uL (3.72-5.28); RED CELL DISTRIBUTION WIDTH 27.3 % (11.5-14.0); SEGMENTED NEUTROPHILS % (AUTO) 55.1 % (42-78); TOTAL CELLS COUNTED % (AUTO) 100 %; WHITE BLOOD COUNT 9.4 10^3/uL (4.0-10.5)
[2017-07-03 21:13] LABS: ANISOCYTOSIS 3+; PLATELET COMMENT ADEQUATE; PLATELET LARGE PRESENT; POLYCHROMASIA SLIGHT
[2017-07-03 21:14] LABS: OVALOCYTES SLIGHT; POIKILOCYTOSIS SLIGHT; TARGET CELLS SLIGHT
[2017-07-03 22:02] LABS: ALANINE AMINOTRANSFERASE 21 U/L (9-52); ALBUMIN 3.9 g/dL (3.5-5.0); ALKALINE PHOSPHATASE 120 U/L (38-126); ANION GAP 16 (5-19); ASPARTATE AMINO TRANSFERASE 28 U/L (14-36); BILIRUBIN,DIRECT 0.8 mg/dL (0.0-0.4); BLOOD UREA NITROGEN 13 mg/dL (7-20); CALCIUM 9.3 mg/dL (8.4-10.2); CARBON DIOXIDE 23 mmol/L (22-30); CHLORIDE 108 mmol/L (98-107); CREATINE KINASE 45 U/L (30-135); GLUCOSE 185 mg/dL (75-110); POTASSIUM 3.9 mmol/L (3.6-5.0); SODIUM 146.9 mmol/L (137-145); TOTAL PROTEIN 7.8 g/dL (6.3-8.2)
[2017-07-03] MEDS ORDERED: CEFTRIAXONE INJ 1000 MG VIAL IV ONE (22:14)
--- NOTE | 2017-07-03 22:19 | ER Document Report ---
ED General - General Chief Complaint: Chest Pain Stated Complaint: BACK PAIN Time Seen by Provider: 07/03/17 18:59 Notes: Patient is a 57-year-old female well known to me with a history of coronary artery disease status post CABG, hypertension, chronic kidney disease who presents with multiple complaints. Her main complaint is that she has had bilateral flank pain left worse than right for the past 2-3 days. She describes as a dull, constant, throbbing pain. Nothing improves or worsens that pain. She states this feels somewhat similar when she has had kidney infections in the past. She has not seen her primary doctor regarding this concern. She does deny any associated fever but states that she has felt overall fatigued and had some intermittent associated headache. Patient also notes that she has had some intermittent chest pain throughout the past 1-2 weeks. She denies any pain at the time of my assessment. TRAVEL OUTSIDE OF THE [place] IN LAST 30 DAYS: No - Related Data Allergies/Adverse Reactions: haloperidol [From Haldol] Allergy (Verified 07/03/17 18:59) haloperidol lactate [From Haldol] Allergy (Verified 07/03/17 18:59) Past Medical History - General Information source: Patient - Social History Smoking Status: Current Every Day Smoker Chew tobacco use (# tins/day): No Frequency of alcohol use: None Drug Abuse: None Lives with: Family Family History: Reviewed & Not Pertinent, CAD - Extensive heart disease in mother and brother with brother dying from complications of cardiac stent placement Patient has suicidal ideation: No Patient has homicidal ideation: No - Past Medical History Cardiac Medical History: Reports: Hx Coronary Artery Disease, Hx Heart Attack - x2, Hx Hypercholesterolemia, Hx Hypertension Pulmonary Medical History: Reports: Hx Bronchitis, Hx COPD Neurological Medical History: Reports: Hx Cerebrovascular Accident Endocrine Medical History: Reports: Hx Diabetes Mellitus Type 2 Renal/ Medical History: Reports: Hx Kidney Stones. Denies: Hx Peritoneal Dialysis GI Medical History: Reports: Hx Gastroesophageal Reflux Disease Psychiatric Medical History: Reports: Hx Bipolar Disorder, Hx Depression, Hx Schizophrenia Past Surgical History: Reports: Hx Cardiac Catheterization, Hx Cardiac Surgery - stents, CABG 09/2016, Hx Cholecystectomy, Hx Coronary Artery Bypass Graft, Hx Coronary Stent - x2, Hx Thyroid Surgery, Hx Tonsillectomy, Hx Tubal Ligation, Hx Urinary Tract Surgery, Hx Vascular Surgery - Immunizations Hx Diphtheria, Pertussis, Tetanus Vaccination: Yes Hx Pneumococcal Vaccination: 11/29/16 Review of Systems - Review of Systems Notes: Constitutional: Negative for fever. HENT: Negative for sore throat. Eyes: Negative for visual changes. Cardiovascular: Negative for chest pain. Respiratory: Negative for shortness of breath. Gastrointestinal: Positive for bilateral flank pain Genitourinary: Negative for dysuria. Musculoskeletal: Negative for back pain. Skin: Negative for rash. Neurological: Positive for headache 10 point ROS negative except as marked above and in HPI. Physical Exam - Vital signs Vitals: Temp Pulse Resp BP Pulse Ox 98.1 F 73 20 161/83 H 98 07/03/17 18:43 07/03/17 18:43 07/03/17 18:43 07/03/17 18:43 07/03/17 18:43 Interpretation: Hypertensive Notes: PHYSICAL EXAMINATION: GENERAL: Well-appearing, well-nourished and in no acute distress. HEAD: Atraumatic, normocephalic. EYES: Pupils equal round and reactive to light, extraocular movements intact, sclera anicteric, conjunctiva are normal. ENT: nares patent, oropharynx clear without exudates. Moderately dry mucous membranes. NECK: Normal range of motion, supple without lymphadenopathy LUNGS: Breath sounds clear to auscultation bilaterally and equal. No wheezes rales or rhonchi. HEART: Regular rate and rhythm without murmurs ABDOMEN: Soft, nontender, normoactive bowel sounds. No guarding, no rebound. No masses appreciated. Bilateral CVA tenderness slightly worse in the left versus the right EXTREMITIES: Normal range of motion, no pitting or edema. No cyanosis. NEUROLOGICAL: No focal neurological deficits. Moves all extremities spontaneously and on command. PSYCH: Normal mood, normal affect. SKIN: Warm, Dry, normal turgor, no rashes or lesions noted. Course - Re-evaluation Re-evalutation: 07/03/17 22:17 Presentation is most consistent with acute pyelonephritis. Laboratories do demonstrate a large amount of white blood cells in the urine as well as bacteria. Patient has had constitutional symptoms at home although no fever. CVA tenderness is present on exam on the left more than the right. The remainder laboratories are relatively unremarkable without evidence of an increased level of renal dysfunction. I do not suspect an acute appendicitis, biliary pathology, pancreatitis, intra-abdominal abscess, or tubo-ovarian abscess based on history and examination. Patient has been given a dose of IV ceftriaxone. Patient is able to tolerate oral intake without difficulty. As patient did complain of some mild chest discomfort which she states has been present for several days an EKG and troponin were obtained both of which are unremarkable without evidence of infarction. Will be discharged home on 7 day course of cephalexin. A urine culture has been sent. At this time will discharge with return precautions and follow-up recommendations. Verbal discharge instructions given a the bedside and opportunity for questions given. Medication warnings reviewed. Patient is in agreement with this plan and has verbalized understanding of return precautions and the need for primary care follow-up in the next 24-72 hours. - Vital Signs Vital signs: Temp Pulse Resp BP Pulse Ox 97.3 F 72 20 167/99 H 98 07/03/17 23:16 07/03/17 23:16 07/03/17 18:43 07/03/17 23:16 07/03/17 23:16 - Laboratory Result Diagrams: 07/03/17 20:16 07/03/17 21:40 Laboratory results interpreted by me: 07/03/17 07/03/17 07/03/17 19:50 20:16 21:40 Hgb 11.2 L Hct 34.9 L MCV 75 L MCH 24.1 L RDW 27.3 H Sodium 146.9 H Chloride 108 H Creatinine 1.27 H Est GFR ( Amer) 52 L Est GFR (Non-Af Amer) 43 L Glucose 185 H Direct Bilirubin 0.8 H Urine Protein 30 H Urine Glucose (UA) 50 H Urine Blood SMALL H Urine Urobilinogen 4.0 H Ur Leukocyte Esterase LARGE H - EKG Interpretation by Me Additional EKG results interpreted by me: 07/03/17 22:18 Sinus rhythm. Rate 72. No ST elevations or depressions. QTC 465. Discharge - Discharge Clinical Impression: Pyelonephritis, Chest discomfort Condition: Good Disposition: HOME, SELF-CARE Additional Instructions: You have been diagnosed with a condition called pyelonephritis which is an infection involving your kidneys and bladder. You have been given a dose of antibiotics here in the emergency department to help begin to treat this infection. Your also being sent home on antibiotics. Please start taking these later on today when you fill the prescription. Complete the course even if you feel better. Please return if you have persistent vomiting, pass out, have worsening pain, become unable to tolerate fluids, or have any other symptoms that are concerning to you. Please follow-up with your primary care physician in the next 24-48 hours. Prescriptions: Cephalexin Monohydrate [Keflex 500 mg Capsule] 500 mg PO Q6H 7 Days capsule
[2017-07-03 23:18] VITALS: BP 167/99
== END 2017-07-03 23:35 | disposition home or self-care (01) ==
LOC: ER 18:29
DX: N12 Tubulo-interstitial nephritis, not specified as acute or chronic (principal); R07.9 Chest pain, unspecified; Z95.1 Presence of aortocoronary bypass graft; N18.9 Chronic kidney disease, unspecified; R53.83 Other fatigue; R51 Headache; F17.200 Nicotine dependence, unspecified, uncomplicated; I25.2 Old myocardial infarction; J44.9 Chronic obstructive pulmonary disease, unspecified; E11.9 Type 2 diabetes mellitus without complications
CPT/HCPCS: 93005; 99285; 96365; 36415; 87086; 82550; 85025; 80053; 81001; 84484; 93010; J0696

== ENCOUNTER 2017-07-07 12:43 | Observation (INO) | payer MEDICAID ==
[2017-07-07] MEDS ORDERED: ASPIRIN 81 MG TABLET, CHEWABLE PO ONE (13:09)
--- NOTE | 2017-07-07 13:10 | ER Document Report ---
ED Medical Screen (RME) - General Chief Complaint: Chest Pain Stated Complaint: CHEST PAIN Time Seen by Provider: 07/07/17 13:08 TRAVEL OUTSIDE OF THE [place] IN LAST 30 DAYS: No - HPI Patient complains to provider of: Left-sided chest pain 2 days - Related Data Allergies/Adverse Reactions: haloperidol [From Haldol] Allergy (Verified 07/07/17 12:45) haloperidol lactate [From Haldol] Allergy (Verified 07/07/17 12:45) Home Medications: paxil, seroquel, insulin, lantus, plavix, Past Medical History - Social History Chew tobacco use (# tins/day): No Frequency of alcohol use: None Drug Abuse: None Family history: Reviewed & Not Pertinent - Past Medical History Cardiac Medical History: Reports: Hx Coronary Artery Disease, Hx Heart Attack - x2, Hx Hypercholesterolemia, Hx Hypertension Pulmonary Medical History: Reports: Hx Bronchitis, Hx COPD Neurological Medical History: Reports: Hx Cerebrovascular Accident Endocrine Medical History: Reports: Hx Diabetes Mellitus Type 2 Renal/ Medical History: Reports: Hx Kidney Stones. Denies: Hx Peritoneal Dialysis GI Medical History: Reports: Hx Gastroesophageal Reflux Disease Psychiatric Medical History: Reports: Hx Bipolar Disorder, Hx Depression, Hx Schizophrenia Past Surgical History: Reports: Hx Cardiac Catheterization, Hx Cardiac Surgery - stents, CABG 09/2016, Hx Cholecystectomy, Hx Coronary Artery Bypass Graft, Hx Coronary Stent - x2, Hx Thyroid Surgery, Hx Tonsillectomy, Hx Tubal Ligation, Hx Urinary Tract Surgery, Hx Vascular Surgery - Immunizations Hx Diphtheria, Pertussis, Tetanus Vaccination: Yes History of Influenza Vaccine for 11/2016 - 04/2017 Season: Yes Influenza Administration Date for 11/2016 - 04/2017 Season: 11/29/16 Review of Systems - Review of Systems Cardiovascular: Chest pain Physical Exam - Respiratory Respiratory status: No respiratory distress Chest status: Nontender Breath sounds: Normal Chest palpation: Normal Notes: Smells of smoke
[2017-07-07 13:54] LABS: ABSOLUTE BASOPHILS # (AUTO) 0.1 10^3/uL (0.0-0.2); ABSOLUTE EOSINOPHILS # (AUTO) 0.1 10^3/uL (0.0-0.6); ABSOLUTE LYMPHOCYTES (AUTO) 2.4 10^3/uL (0.5-4.7); ABSOLUTE MONOCYTES (AUTO) 0.6 10^3/uL (0.1-1.4); ABSOLUTE NEUT (AUTO) 4.8 10^3/uL (1.7-8.2); BASOPHILS % (AUTO) 1.6 % (0-2); EOSINOPHILS % (AUTO) 1.2 % (0-6); HEMATOCRIT 34.9 % (36.0-47.0); HEMOGLOBIN 11.1 g/dL (12.0-15.5); LYMPHOCYTES % (AUTO) 29.8 % (13-45); MEAN CORPUSCULAR HGB CONC 31.9 g/dL (32.0-36.0); MEAN CORPUSCULAR VOLUME 75 fl (80-97); MONOCYTES % (AUTO) 7.9 % (3-13); PLATELET COUNT 302 10^3/uL (150-450); RED BLOOD COUNT 4.64 10^6/uL (3.72-5.28); RED CELL DISTRIBUTION WIDTH 26.2 % (11.5-14.0); SEGMENTED NEUTROPHILS % (AUTO) 59.5 % (42-78); TOTAL CELLS COUNTED % (AUTO) 100 %
--- NOTE | 2017-07-07 14:03 | EKG REPORT ---
SEVERITY:- ABNORMAL ECG - SINUS RHYTHM INFERIOR INFARCT, AGE INDETERMINATE NONSPECIFIC T ABNORMALITIES, LATERAL LEADS PROLONGED QT INTERVAL : Confirmed by: Agustin Crawford MD 07-Jul-2017 14:02:24
--- NOTE | 2017-07-07 14:13 | ER Document Report ---
ED Cardiac - General Chief Complaint: Chest Pain Stated Complaint: CHEST PAIN Time Seen by Provider: 07/07/17 13:08 Mode of Arrival: Ambulatory Information source: Patient TRAVEL OUTSIDE OF THE [place] IN LAST 30 DAYS: No - HPI Patient complains to provider of: Chest pain Use of: denies: Alcohol, Amphetamines, Bath salts, Caffeine, Cocaine, Decongestants Was the onset of pain: Gradual When did pain begin: YESTERDAY Is the pain a: New problem Chest pain location: Other - LEFT PARASTERNAL Quality of pain: Intermittent, Sharp Chest pain radiation location: None Severity now: None Severity at worst: Moderate Cardiac risk factors: Diabetes, Hypertension, Smoker, + Family history, Hx [place] Positive cardiac history: Yes Associated symptoms: Fever/chills - CHILLS, NO FEVER, Nausea/vomiting, Shortness of breath. denies: Diaphoresis Relieved by: NTG, Other - TYLENOL Similar symptoms previously: Yes - PRESENT PAIN SHARPER THAN PREVIOUS Recently seen / treated by doctor: No - Related Data Allergies/Adverse Reactions: haloperidol [From Haldol] Allergy (Verified 07/07/17 12:45) haloperidol lactate [From Haldol] Allergy (Verified 07/07/17 12:45) Home Medications: paxil, seroquel, insulin, lantus, plavix, Past Medical History - General Information source: Patient - Social History Smoking Status: Current Every Day Smoker Cigarette use (# per day): Yes Chew tobacco use (# tins/day): No Smoking Education Provided: No Frequency of alcohol use: None Drug Abuse: None Lives with: Spouse/Significant other Family History: Reviewed & Not Pertinent, CAD - Extensive heart disease in mother and brother with brother dying from complications of cardiac stent placement Patient has suicidal ideation: No Patient has homicidal ideation: No - Past Medical History Cardiac Medical History: Reports: Hx Coronary Artery Disease, Hx Heart Attack - x2, Hx Hypercholesterolemia, Hx Hypertension Pulmonary Medical History: Reports: Hx Bronchitis, Hx COPD Neurological Medical History: Reports: Hx Cerebrovascular Accident Endocrine Medical History: Reports: Hx Diabetes Mellitus Type 2 Renal/ Medical History: Reports: Hx Kidney Stones. Denies: Hx Peritoneal Dialysis Malignancy Medical History: Reports: None GI Medical History: Reports: Hx Gastroesophageal Reflux Disease Musculoskeltal Medical History: Reports None Psychiatric Medical History: Reports: Hx Bipolar Disorder, Hx Depression, Hx Schizophrenia Past Surgical History: Reports: Hx Cardiac Catheterization, Hx Cardiac Surgery - stents, CABG 09/2016, Hx Cholecystectomy, Hx Coronary Artery Bypass Graft, Hx Coronary Stent - x2, Hx Thyroid Surgery, Hx Tonsillectomy, Hx Tubal Ligation, Hx Urinary Tract Surgery, Hx Vascular Surgery - Immunizations Hx Diphtheria, Pertussis, Tetanus Vaccination: Yes Hx Pneumococcal Vaccination: 11/29/16 Review of Systems - Review of Systems Constitutional: Chills EENT: No symptoms reported Cardiovascular: See HPI Respiratory: See HPI Gastrointestinal: See HPI Genitourinary: No symptoms reported Female Genitourinary: Post menopausal Musculoskeletal: No symptoms reported Skin: No symptoms reported Neurological/Psychological: No symptoms reported Physical Exam - Vital signs Vitals: Temp Pulse Resp BP Pulse Ox 98.2 F 90 16 136/93 H 98 07/07/17 12:54 07/07/17 12:54 07/07/17 12:54 07/07/17 12:54 07/07/17 12:54 Interpretation: Hypertensive. No: Tachycardic, Hypoxic, Tachypneic - General General appearance: Appears well, Alert In distress: None - HEENT Head: Normocephalic Eyes: Normal Conjunctiva: Normal Ears: Normal Nasal: Normal Mouth/Lips: Normal Mucous membranes: Normal Pharynx: Normal Neck: Normal - Respiratory Respiratory status: No respiratory distress Breath sounds: Normal - Cardiovascular Rhythm: Regular Heart sounds: Normal auscultation Murmur: No - Abdominal Inspection: Normal Distension: No distension Bowel sounds: Normal - Extremities General upper extremity: Normal inspection General lower extremity: Normal inspection. No: Tender, Edema - Neurological Neuro grossly intact: Yes Cognition: Normal Orientation: AAOx4 - Psychological Associated symptoms: Normal affect, Normal mood - Skin Skin Temperature: Warm Skin Moisture: Dry Skin Color: Normal Skin Turgor: Elastic Skin irregularity: other - LARGE NODULE R. TRAPEZIUS AREA Course - Re-evaluation Re-evalutation: 07/07/17 15:55 Called to attend to patient who apparently had sudden onset of incoherent moaning and clutching chest, as though in extreme pain. Patient would not respond to verbal stimulus, skin was cool and moist but otherwise exam was unremarkable. Vital signs remained stable throughout the event, which gradually resolved. She was mildly tachycardic but maintained good blood pressure and pulse ox. Spouse states she has had these kind of episode before, but no one has ever offered a concise diagnosis. Will reevaluate with repeat EKG and CT scan of head to rule out myocardial ischemia and CVA. - Vital Signs Vital signs: Temp Pulse Resp BP Pulse Ox 98.2 F 90 16 136/93 H 98 07/07/17 12:54 07/07/17 12:54 07/07/17 12:54 07/07/17 12:54 07/07/17 12:54 - Laboratory Result Diagrams: 07/07/17 13:37 07/07/17 15:29 Laboratory results interpreted by me: 07/07/17 07/07/17 13:37 15:29 Hgb 11.1 L Hct 34.9 L MCV 75 L MCH 24.0 L MCHC 31.9 L RDW 26.2 H Sodium 148.0 H Est GFR (Non-Af Amer) 52 L Glucose 159 H Direct Bilirubin 0.7 H - Diagnostic Test Radiology reviewed: Image reviewed, Reports reviewed - EKG Interpretation by Me EKG shows normal: Sinus rhythm, [place]. abnormal: Intervals - LONG QT, QRS Complexes - INF. Q WAVES, ? SIGNIFICANT, ST-T Waves - LAT. T ABNLS, NS Rate: Normal Rhythm: NSR - Consults DR. FRAZIER Time consulted: 17:08 Consulted provider: will come to ER Discharge - Discharge Clinical Impression: Chronic kidney disease (CKD), stage III (moderate) Chest pain Qualifiers: Chest pain type: unspecified Qualified Code(s): R07.9 - Chest pain, unspecified CAD (coronary artery disease) Qualifiers: Coronary Disease-Associated Artery/Lesion type: unspecified vessel or lesion type [place] vs. transplanted heart: [place] heart Associated angina: angina presence unspecified Qualified Code(s): I25.10 - Atherosclerotic heart disease of [place] coronary artery without angina pectoris Condition: Good Disposition: ADMITTED OBSERVATION Admitting Provider: Hospitalist Unit Admitted: Telemetry
--- NOTE | 2017-07-07 14:14 | RADIOLOGY REPORT (SQ) ---
EXAM DESCRIPTION: CHEST 2 VIEWS COMPLETED DATE/TIME: 07/07/2017 1:51 pm REASON FOR STUDY: cp COMPARISON: November 2016 EXAM PARAMETERS: NUMBER OF VIEWS: two views TECHNIQUE: Digital Frontal and Lateral radiographic views of the chest acquired. RADIATION DOSE: NA LIMITATIONS: none FINDINGS: LUNGS AND PLEURA: No opacities, masses or pneumothorax. No pleural effusion. MEDIASTINUM AND HILAR STRUCTURES: No masses or contour abnormalities. HEART AND VASCULAR STRUCTURES: The configuration of the heart mediastinal structures is unchanged BONES: No acute findings. HARDWARE: Patient is status post median sternotomy with coronary bypass surgery. OTHER: No other significant finding. IMPRESSION: No significant interval change. No acute findings. Other findings as noted above. TECHNICAL DOCUMENTATION: JOB ID: [id number] [employer]- All Rights Reserved Reading location - IP/workstation name: [email or web address]
[2017-07-07 14:18] LABS: ANISOCYTOSIS 3+; OVALOCYTES SLIGHT; PLATELET COMMENT ADEQUATE; PLATELET LARGE PRESENT; POIKILOCYTOSIS 2+; TARGET CELLS 1+; TEAR DROP CELLS SLIGHT
[2017-07-07] MEDS ORDERED: LORAZEPAM INJ 2 MG/1 ML VIAL IV ONE (15:53)
[2017-07-07 16:04] LABS: ALANINE AMINOTRANSFERASE 20 U/L (9-52); ALBUMIN 3.9 g/dL (3.5-5.0); ALKALINE PHOSPHATASE 123 U/L (38-126); ANION GAP 16 (5-19); ASPARTATE AMINO TRANSFERASE 19 U/L (14-36); BILIRUBIN,DIRECT 0.7 mg/dL (0.0-0.4); BLOOD UREA NITROGEN 11 mg/dL (7-20); CALCIUM 9.8 mg/dL (8.4-10.2); CARBON DIOXIDE 26 mmol/L (22-30); CHLORIDE 106 mmol/L (98-107); CREATINE KINASE 52 U/L (30-135); GLUCOSE 159 mg/dL (75-110); POTASSIUM 3.7 mmol/L (3.6-5.0); TOTAL PROTEIN 7.6 g/dL (6.3-8.2)
[2017-07-07 16:18] LABS: CREATINE KINASE MB 1.86 ng/mL (<4.55); TROPONIN I 0.03 ng/mL
--- NOTE | 2017-07-07 17:04 | RADIOLOGY REPORT (SQ) ---
EXAM DESCRIPTION: CT HEAD WITHOUT COMPLETED DATE/TIME: 07/07/2017 4:49 pm REASON FOR STUDY: ALTERED MENTAL STATUS COMPARISON: None. TECHNIQUE: Axial images acquired through the brain without intravenous contrast. Images reviewed wi th bone, brain and subdural windows. Additional sagittal and coronal reconstructions were generated. Images stored on PACS. All CT scanners at this facility use dose modulation, iterative reconstruction, and/or weight based d osing when appropriate to reduce radiation dose to as low as reasonably achievable (ALARA). [facility]: Dose Right [facility]: CareDose [facility]: Dose Right [facility]: Teradose 4D [facility]: [employer] RADIATION DOSE: CT Rad equipment meets quality standard of care and radiation dose reduction techniq ues were employed. CTDIvol: 53.2 mGy. DLP: 1017 mGy-cm. mGy. LIMITATIONS: None. FINDINGS: VENTRICLES: Normal size and contour. CEREBRUM: No hemorrhage, contusion, midline shift or mass effect. There are 2 small stable areas of encephalomalacia in the right posterior parietal area. Normal villatoro/white matter differentiation. No a reas of low density in the white matter. CEREBELLUM: No masses. No hemorrhage. No alteration of density. No evidence for acute infarction. EXTRAAXIAL SPACES: No fluid collections. No masses. ORBITS AND GLOBE: No intra- or extraconal masses. Normal contour of globe without masses. CALVARIUM: No fracture. PARANASAL SINUSES: No fluid or mucosal thickening. SOFT TISSUES: No mass or hematoma. OTHER: No other significant finding. IMPRESSION: Microvascular ischemia with 2 small old right parietal infarcts and no acute intracrania l imaging findings. EVIDENCE OF ACUTE STROKE: NO. COMMENT: Quality ID # [id number]: Final reports with documentation of one or more dose reduction techniques (e.g., Automated exposure control, adjustment of the mA and/or kV according to patient size, use of iterative reconstruction technique) TECHNICAL DOCUMENTATION: JOB ID: [id number] [employer]- All Rights Reserved Reading location - IP/workstation name: [email or web address]
[2017-07-07] MEDS ORDERED: NITROGLYCERIN 2% OINTMENT 1 GM PACKET TP ONE (17:05)
[2017-07-07 17:22] VITALS: BP 152/100
[2017-07-07] MEDS ORDERED: GLUCAGON,HUMAN RECOMB 1 MG INJ IM PRN (17:25)
[2017-07-07] MEDS ORDERED: DEXTROSE 50%-WATER 25 GM/50 ML DISP.SYRIN IV PRN ×2 (17:25)
[2017-07-07] MEDS ORDERED: INSULIN LISPRO 100 UNIT/ML 3 ML VIAL SUBCUT PRN (17:25)
[2017-07-07] MEDS ORDERED: DEXTROSE 40% GEL 15 GM TUBE PO PRN ×2 (17:25)
[2017-07-07] MEDS ORDERED: IPRATROPIUM/ALBUTEROL 0.5-2.5 MG/3 ML AMPUL NEB PRN (17:25)
--- NOTE | 2017-07-07 17:54 | PDOC H&P ---
History of Present Illness Admission Date/PCP: 07/07/17 17:12 MAKAYLA FRAZIER MD Patient complains of: Chest pain History of Present Illness: CHARLEY SHERMAN is a 57 year old bipolar female who is had chest pain on and off for the last couple days. She states it is mostly left-sided, associated with twitching on the left side of her face and her right eye. No relation to activity. She states she does not reliably take her medications. She has had some associated nausea and shortness of breath. No diaphoresis. Past Medical History Cardiac Medical History: Reports: Coronary Artery Disease, Myocardial Infarction - x2, Hyperlipidema, Hypertension Pulmonary Medical History: Reports: Bronchitis, Chronic Obstructive Pulmonary Disease (COPD) Endocrine Medical History: Reports: Diabetes Mellitus Type 2 Malignancy Medical History: Reports: None GI Medical History: Reports: Gastroesophageal Reflux Disease Musculoskeltal Medical History: Reports: None Psychiatric Medical History: Reports: Bipolar Disorder, Depression Past Surgical History Past Surgical History: Reports: Cardiac Catheterization, Cholecystectomy, Coronary Artery Bypass Graft - September 2016, Coronary Stent - x2, Tonsillectomy, Tubal Ligation, Vascular Surgery Social History Information Source: Patient Lives with: Spouse/Significant other Smoking Status: Current Every Day Smoker Frequency of Alcohol Use: None Hx Recreational Drug Use: No Drugs: None Hx Prescription Drug Abuse: No - Advance Directive Resuscitation Status: Full Code Family History Family History: CAD - Extensive heart disease in both parents and brother with brother dying from complications of cardiac stent placement Parental Family History Reviewed: Yes Children Family History Reviewed: NA Sibling(s) Family History Reviewed.: Yes Medication/Allergy Home Medications: Nitroglycerin 1 tab PO PRN PRN 07/03/17 Allergies/Adverse Reactions: haloperidol [From Haldol] Allergy (Verified 07/07/17 12:45) haloperidol lactate [From Haldol] Allergy (Verified 07/07/17 12:45) Review of Systems All systems: reviewed and no additional remarkable complaints except as stated - Also bothered by restless legs Physical Exam Vital Signs: Temp Pulse Resp BP Pulse Ox 98.2 F 90 16 152/100 H 96 07/07/17 12:54 07/07/17 12:54 07/07/17 17:01 07/07/17 17:00 07/07/17 17:01 General appearance: PRESENT: no acute distress, disheveled, obese Respiratory exam: PRESENT: clear to auscultation ailyn Cardiovascular exam: PRESENT: RRR GI/Abdominal exam: PRESENT: soft Extremities exam: ABSENT: other - No edema Musculoskeletal exam: PRESENT: normal inspection Neurological exam: PRESENT: alert, other - Left-sided facial droop was some slurred speech Psychiatric exam: PRESENT: agitated, anxious, unusual affect Skin exam: PRESENT: warm Results Impressions: Chest X-Ray 07/07/17 13:09 IMPRESSION: No significant interval change. No acute findings. Other findings as noted above. Head CT 07/07/17 15:54 IMPRESSION: Microvascular ischemia with 2 small old right parietal infarcts and no acute intracranial imaging findings. EVIDENCE OF ACUTE STROKE: NO. Assessment & Plan - Diagnosis (1) Chest pain Qualifiers: Chest pain type: unspecified Qualified Code(s): R07.9 - Chest pain, unspecified Is this a current diagnosis for this admission?: Yes Plan: She has known coronary artery disease. She has frequent presentations to the ER for chest and abdominal pain. She usually leaves AMA. I will put her in overnight, get serial cardiac enzymes, and if she still here in the morning I will put her in for a stress test. (2) Bipolar 1 disorder, depressed Is this a current diagnosis for this admission?: Yes Plan: Continue home medications (3) HTN (hypertension) Is this a current diagnosis for this admission?: Yes Plan: Resume home medications (4) DM hyperosmolarity type II, uncontrolled Is this a current diagnosis for this admission?: Yes Plan: Continue home medications and cover with sliding scale insulin (5) CAD (coronary artery disease) Qualifiers: Coronary Disease-Associated Artery/Lesion type: unspecified vessel or lesion type [place] vs. transplanted heart: [place] heart Associated angina: angina presence unspecified Qualified Code(s): I25.10 - Atherosclerotic heart disease of [place] coronary artery without angina pectoris Is this a current diagnosis for this admission?: Yes
[2017-07-07] MEDS ORDERED: ISOSORBIDE MONONITRATE 30 MG TAB.ER.24H PO SCH (18:00)
[2017-07-07] MEDS ORDERED: CLOPIDOGREL BISULFATE 75 MG TABLET PO SCH (18:00)
--- NOTE | 2017-07-07 18:21 | EKG REPORT ---
SEVERITY:- ABNORMAL ECG - SINUS RHYTHM MULTIPLE VENTRICULAR PREMATURE COMPLEXES INFERIOR INFARCT, AGE INDETERMINATE LATERAL INFARCT, AGE INDETERMINATE : Confirmed by: Agustin Crawford MD 07-Jul-2017 18:21:09
[2017-07-07] MEDS ORDERED: PAROXETINE HCL 20 MG TABLET PO ONE (18:30)
[2017-07-07] MEDS ORDERED: QUETIAPINE FUMARATE 100 MG TABLET PO SCH (22:00)
[2017-07-07] MEDS ORDERED: FAMOTIDINE 20 MG TABLET PO SCH (22:00)
[2017-07-08] MEDS ORDERED: ENOXAPARIN SODIUM INJ 40 MG/0.4 ML DISP.SYRIN SUBCUT SCH (10:00)
== END 2017-07-07 17:57 | disposition left against medical advice (07) ==
LOC: ER 12:43 → EH 17:12
PROVIDERS: ADMIT Internal Medicine; ATTEND Internal Medicine
DX: R07.9 Chest pain, unspecified (principal); I25.10 Atherosclerotic heart disease of native coronary artery without angina pectoris; F31.9 Bipolar disorder, unspecified; I12.9 Hypertensive chronic kidney disease with stage 1 through stage 4 chronic kidney disease, or unspecified chronic kidney disease; E11.22 Type 2 diabetes mellitus with diabetic chronic kidney disease; N18.3 Chronic kidney disease, stage 3 (moderate); F17.210 Nicotine dependence, cigarettes, uncomplicated; R68.83 Chills (without fever); N95.9 Unspecified menopausal and perimenopausal disorder; R00.0 Tachycardia, unspecified; I25.2 Old myocardial infarction; Z79.02 Long term (current) use of antithrombotics/antiplatelets; Z79.899 Other long term (current) drug therapy; Z79.4 Long term (current) use of insulin; Z82.49 Family history of ischemic heart disease and other diseases of the circulatory system; Z86.73 Personal history of transient ischemic attack (TIA), and cerebral infarction without residual deficits; Z95.1 Presence of aortocoronary bypass graft; Z95.5 Presence of coronary angioplasty implant and graft; Z90.49 Acquired absence of other specified parts of digestive tract
CPT/HCPCS: 93005; 99285; 96374; 36415; 82553; 82550; 85025; 80053; 84484; 71046; 70450; 93010; J3490; J2060

== ENCOUNTER 2017-07-12 16:29 | Emergency (ER) | payer MEDICAID ==
--- NOTE | 2017-07-12 17:20 | ER Document Report ---
ED Medical Screen (RME) - General Chief Complaint: Syncope Stated Complaint: FALL HEAD INJURY Time Seen by Provider: 07/12/17 17:11 Notes: RAPID MEDICAL EVALUATION DISCLOSURE I have seen this patient as part of a Rapid Medical Evaluation and, if applicable, placed any initially appropriate orders. The patient will be seen and fully evaluated, including a full history and physical exam, by a provider ( in Main ED or Fast Track) when a room becomes available. 57-year-old female PMH bilateral carotid artery stenosis and atherosclerosis ( with right 100% and left 50% stenosis as of late last year) here with complaints of syncope that occurred approximately 4.5 hours ago. She reports that she stood up to go to another room and several steps later she passed out fell hitting her head on the laminate wood floor. She has been having some headaches since then. She does take Plavix blood thinner. She also complains of some pain to the left upper chest wall that started after she fell and impacted the floor. She does not have any neck pain. She denies any focal weakness numbness tingling slurred speech facial asymmetry. EXAM Alert and conversational CTAB RRR Mild TTP left upper chest wall Bruising of left upper extremity with minimal to no TTP TRAVEL OUTSIDE OF THE [place]. IN LAST 30 DAYS: No - Related Data Allergies/Adverse Reactions: haloperidol [From Haldol] Allergy (Verified 07/07/17 12:45) haloperidol lactate [From Haldol] Allergy (Verified 07/07/17 12:45) Past Medical History - Social History Frequency of alcohol use: None Drug Abuse: None Family history: Reviewed & Not Pertinent - Past Medical History Cardiac Medical History: Reports: Hx Coronary Artery Disease, Hx Heart Attack - x2, Hx Hypercholesterolemia, Hx Hypertension Pulmonary Medical History: Reports: Hx Bronchitis, Hx COPD Neurological Medical History: Reports: Hx Cerebrovascular Accident Endocrine Medical History: Reports: Hx Diabetes Mellitus Type 2 Renal/ Medical History: Reports: Hx Kidney Stones. Denies: Hx Peritoneal Dialysis GI Medical History: Reports: Hx Gastroesophageal Reflux Disease Psychiatric Medical History: Reports: Hx Bipolar Disorder, Hx Depression, Hx Schizophrenia Past Surgical History: Reports: Hx Cardiac Catheterization, Hx Cardiac Surgery - stents, CABG 09/2016, Hx Cholecystectomy, Hx Coronary Artery Bypass Graft - September 2016, Hx Coronary Stent - x2, Hx Thyroid Surgery, Hx Tonsillectomy, Hx Tubal Ligation, Hx Urinary Tract Surgery, Hx Vascular Surgery - Immunizations Hx Diphtheria, Pertussis, Tetanus Vaccination: Yes History of Influenza Vaccine for 11/2016 - 04/2017 Season: Yes Influenza Administration Date for 11/2016 - 04/2017 Season: 11/29/16 Physical Exam - Vital signs Vitals: Temp Pulse Resp BP Pulse Ox 97.8 F 90 18 146/86 H 97 07/12/17 17:00 07/12/17 17:00 07/12/17 17:00 07/12/17 17:00 07/12/17 17:00 Course - Vital Signs Vital signs: Temp Pulse Resp BP Pulse Ox 97.8 F 90 18 146/86 H 97 07/12/17 17:00 07/12/17 17:00 07/12/17 17:00 07/12/17 17:00 07/12/17 17:00
--- NOTE | 2017-07-12 17:52 | RADIOLOGY REPORT (SQ) ---
EXAM DESCRIPTION: CHEST 2 VIEWS COMPLETED DATE/TIME: 07/12/2017 5:44 pm REASON FOR STUDY: syncope COMPARISON: 07/07/2017. EXAM PARAMETERS: NUMBER OF VIEWS: two views TECHNIQUE: Digital Frontal and Lateral radiographic views of the chest acquired. RADIATION DOSE: NA LIMITATIONS: none FINDINGS: LUNGS AND PLEURA: No opacities, masses or pneumothorax. No pleural effusion. MEDIASTINUM AND HILAR STRUCTURES: No masses or contour abnormalities. HEART AND VASCULAR STRUCTURES: Heart normal size. No evidence for failure. BONES: No acute findings. HARDWARE: Sternotomy wires and coronary bypass markers. Clips in the upper abdomen. OTHER: No other significant finding. IMPRESSION: NO ACUTE RADIOGRAPHIC FINDING IN THE CHEST. TECHNICAL DOCUMENTATION: JOB ID: [id number] [employer]- All Rights Reserved Reading location - IP/workstation name: [email or web address]
--- NOTE | 2017-07-12 18:43 | RADIOLOGY REPORT (SQ) ---
EXAM DESCRIPTION: CT HEAD WITHOUT COMPLETED DATE/TIME: 07/12/2017 6:06 pm REASON FOR STUDY: syncope w head impact COMPARISON: CT brain 07/07/2017, 06/22/2017, 06/16/2017, 12/12/2016 TECHNIQUE: Axial images acquired through the brain without intravenous contrast. Images reviewed wi th bone, brain and subdural windows. Additional sagittal and coronal reconstructions were generated. Images stored on PACS. All CT scanners at this facility use dose modulation, iterative reconstruction, and/or weight based d osing when appropriate to reduce radiation dose to as low as reasonably achievable (ALARA). [facility]: Dose Right [facility]: CareDose [facility]: Dose Right [facility]: Teradose 4D [facility]: [employer] RADIATION DOSE: 53 mGy. LIMITATIONS: None. FINDINGS: VENTRICLES: Normal size and contour. CEREBRUM: There are chronic infarcts in the right parietal white matter and right posterior frontal c ortex and subcortical white matter, unchanged from 2017. No CT evidence of acute large territory isch emic change, acute intracranial hemorrhage, mass effect, or midline shift. CEREBELLUM: No masses. No hemorrhage. No alteration of density. No evidence for acute infarction. EXTRAAXIAL SPACES: No fluid collections. No masses. ORBITS AND GLOBE: No intra- or extraconal masses. Normal contour of globe without masses. CALVARIUM: No fracture. PARANASAL SINUSES: No fluid or mucosal thickening. SOFT TISSUES: No mass or hematoma. OTHER: Report discussed with Dr. Navarro in the emergency room IMPRESSION: No acute intracranial hemorrhage. No mass effect or midline shift. Old right hemisphere infarcts, unchanged from 2017 EVIDENCE OF ACUTE STROKE: NO. COMMENT: Quality ID # [id number]: Final reports with documentation of one or more dose reduction techniques (e.g., Automated exposure control, adjustment of the mA and/or kV according to patient size, use of iterative reconstruction technique) TECHNICAL DOCUMENTATION: JOB ID: [id number] [employer]- All Rights Reserved Reading location - IP/workstation name: [email or web address], [id number]
[2017-07-12 19:00] LABS: ABSOLUTE BASOPHILS # (AUTO) 0.2 10^3/uL (0.0-0.2); ABSOLUTE EOSINOPHILS # (AUTO) 0.2 10^3/uL (0.0-0.6); ABSOLUTE LYMPHOCYTES (AUTO) 3.1 10^3/uL (0.5-4.7); ABSOLUTE MONOCYTES (AUTO) 0.7 10^3/uL (0.1-1.4); ABSOLUTE NEUT (AUTO) 4.4 10^3/uL (1.7-8.2); BASOPHILS % (AUTO) 1.8 % (0-2); EOSINOPHILS % (AUTO) 2.8 % (0-6); HEMATOCRIT 34.8 % (36.0-47.0); HEMOGLOBIN 10.8 g/dL (12.0-15.5); LYMPHOCYTES % (AUTO) 35.9 % (13-45); MEAN CORPUSCULAR HEMOGLOBIN 23.6 pg (27.0-33.4); MEAN CORPUSCULAR HGB CONC 31.1 g/dL (32.0-36.0); MEAN CORPUSCULAR VOLUME 76 fl (80-97); PLATELET COUNT 254 10^3/uL (150-450); RED BLOOD COUNT 4.59 10^6/uL (3.72-5.28); RED CELL DISTRIBUTION WIDTH 26.2 % (11.5-14.0); SEGMENTED NEUTROPHILS % (AUTO) 51.5 % (42-78); TOTAL CELLS COUNTED % (AUTO) 100 %; WHITE BLOOD COUNT 8.6 10^3/uL (4.0-10.5)
[2017-07-12 19:04] LABS: AMORPHOUS SEDIMENT,URINE TRACE /HPF; APPEARANCE,URINE CLOUDY; BILIRUBIN,URINE NEGATIVE (NEGATIVE); COLOR,URINE YELLOW; GLUCOSE, URINE NEGATIVE (NEGATIVE); KETONES,URINE NEGATIVE (NEGATIVE); LEUKOCYTE ESTERASE,URINE LARGE (NEGATIVE); NITRITE,URINE NEGATIVE (NEGATIVE); PROTEIN,URINE 30 mg/dL (NEGATIVE); URINE SPECIFIC GRAVITY 1.009
[2017-07-12 19:14] LABS: ANION GAP 17 (5-19); BLOOD UREA NITROGEN 11 mg/dL (7-20); CALCIUM 9.7 mg/dL (8.4-10.2); CARBON DIOXIDE 21 mmol/L (22-30); CHLORIDE 106 mmol/L (98-107); GLUCOSE 143 mg/dL (75-110); PHOSPHORUS 4.2 mg/dL (2.5-4.5); SODIUM 144.4 mmol/L (137-145)
[2017-07-12 19:22] LABS: ANISOCYTOSIS 3+; OVALOCYTES SLIGHT; POIKILOCYTOSIS 2+; TARGET CELLS 2+; TEAR DROP CELLS SLIGHT
[2017-07-12 19:23] LABS: PLATELET COMMENT ADEQUATE
--- NOTE | 2017-07-12 20:17 | EKG REPORT ---
SEVERITY:- ABNORMAL ECG - SINUS RHYTHM INFERIOR INFARCT, AGE INDETERMINATE LATERAL INFARCT, AGE INDETERMINATE : Confirmed by: Ermias Smith 12-Jul-2017 20:17:14
--- NOTE | 2017-07-12 21:02 | ER Document Report ---
ED General - General Chief Complaint: Syncope Stated Complaint: FALL HEAD INJURY Time Seen by Provider: 07/12/17 17:11 Mode of Arrival: Medic Information source: Patient TRAVEL OUTSIDE OF THE [place] IN LAST 30 DAYS: No - HPI Patient complains to provider of: syncope Onset: Just prior to arrival Quality of pain: Dull - left forehead after sycope Associated symptoms: Chest pain Exacerbated by: Denies Relieved by: Denies Similar symptoms previously: Yes Recently seen / treated by doctor: Yes - 07/07/17 Notes: Patient states that she was walking across her kitchen when she had a syncopal episode. She states she has some left sided dull chest pain associated with this. Patient was here on 07/07/2017. She states that we discharged her at 3 AM and told her everything was okay. Last note was written by Dr. Moreno regarding a stress test if the patient remained here overnight as she usually leaves AMA. - Related Data Allergies/Adverse Reactions: haloperidol [From Haldol] Allergy (Verified 07/07/17 12:45) haloperidol lactate [From Haldol] Allergy (Verified 07/07/17 12:45) Past Medical History - General Information source: Patient, [facility] Records - Social History Smoking Status: Current Every Day Smoker Frequency of alcohol use: None Drug Abuse: None Lives with: Alone Family History: CAD - Extensive heart disease in both parents and brother with brother dying from complications of cardiac stent placement Patient has suicidal ideation: No Patient has homicidal ideation: No - Past Medical History Cardiac Medical History: Reports: Hx Coronary Artery Disease, Hx Heart Attack - x2, Hx Hypercholesterolemia, Hx Hypertension Pulmonary Medical History: Reports: Hx Bronchitis, Hx COPD Neurological Medical History: Reports: Hx Cerebrovascular Accident Endocrine Medical History: Reports: Hx Diabetes Mellitus Type 2 Renal/ Medical History: Reports: Hx Kidney Stones. Denies: Hx Peritoneal Dialysis GI Medical History: Reports: Hx Gastroesophageal Reflux Disease Psychiatric Medical History: Reports: Hx Bipolar Disorder, Hx Depression, Hx Schizophrenia Past Surgical History: Reports: Hx Cardiac Catheterization, Hx Cardiac Surgery - stents, CABG 09/2016, Hx Cholecystectomy, Hx Coronary Artery Bypass Graft - September 2016, Hx Coronary Stent - x2, Hx Thyroid Surgery, Hx Tonsillectomy, Hx Tubal Ligation, Hx Urinary Tract Surgery, Hx Vascular Surgery - Immunizations Hx Diphtheria, Pertussis, Tetanus Vaccination: Yes Hx Pneumococcal Vaccination: 11/29/16 Review of Systems - Review of Systems Constitutional: No symptoms reported EENT: No symptoms reported Cardiovascular: See HPI Respiratory: No symptoms reported Gastrointestinal: No symptoms reported Musculoskeletal: No symptoms reported Skin: Rash Hematologic/Lymphatic: No symptoms reported Neurological/Psychological: See HPI Physical Exam - Vital signs Vitals: Temp Pulse Resp BP Pulse Ox 97.8 F 90 18 146/86 H 97 07/12/17 17:00 07/12/17 17:00 07/12/17 17:00 07/12/17 17:00 07/12/17 17:00 - Notes Notes: PHYSICAL EXAMINATION: GENERAL: Well-appearing, well-nourished and in no acute distress. HEAD: Atraumatic, normocephalic. EYES: Pupils equal round and reactive to light, extraocular movements intact, conjunctiva are normal. ENT: Nares patent, oropharynx clear without exudates. Moist mucous membranes. NECK: Normal range of motion, supple without lymphadenopathy LUNGS: Breath sounds clear to auscultation bilaterally and equal. No wheezes rales or rhonchi. HEART: Regular rate and rhythm without murmurs ABDOMEN: Soft, nontender, nondistended abdomen. No guarding, no rebound. No masses appreciated. Female : deferred Musculoskeletal: Normal range of motion, no pitting or edema. No cyanosis. NEUROLOGICAL: Cranial nerves grossly intact. Normal speech, normal gait. Normal sensory, motor exams PSYCH: flat affect SKIN: Warm, Dry, normal turgor, Scaly rash on face and extremities consistent with eczema Course - Re-evaluation Re-evalutation: 07/12/17 21:02 Labs- All tests 24 hr 07/12/17 07/12/17 07/12/17 18:28 18:28 18:28 WBC 8.6 RBC 4.59 Hgb 10.8 L Hct 34.8 L MCV 76 L MCH 23.6 L MCHC 31.1 L RDW 26.2 H Plt Count 254 Seg Neutrophils % 51.5 Lymphocytes % 35.9 Monocytes % 8.0 Eosinophils % 2.8 Basophils % 1.8 Absolute Neutrophils 4.4 Absolute Lymphocytes 3.1 Absolute Monocytes 0.7 Absolute Eosinophils 0.2 Absolute Basophils 0.2 Platelet Comment ADEQUATE Poikilocytosis 2+ Anisocytosis 3+ Target Cells 2+ Tear Drop Cells SLIGHT Ovalocytes SLIGHT Sodium 144.4 Potassium 4.0 Chloride 106 Carbon Dioxide 21 L Anion Gap 17 BUN 11 Creatinine 1.01 Est GFR ( Amer) > 60 Est GFR (Non-Af Amer) 56 L Glucose 143 H Calcium 9.7 Phosphorus 4.2 Magnesium 1.8 Troponin I 0.034 Urine Color Urine Appearance Urine pH Ur Specific Miles Urine Protein Urine Glucose (UA) Urine Ketones Urine Blood Urine Nitrite Urine Bilirubin Urine Urobilinogen Ur Leukocyte Esterase Urine WBC (Auto) Urine RBC (Auto) Urine Bacteria (Auto) Squamous Epi Cells Auto Amorphous Sediment Auto Urine Mucus (Auto) Urine Ascorbic Acid 07/12/17 18:28 WBC RBC Hgb Hct MCV MCH MCHC RDW Plt Count Seg Neutrophils % Lymphocytes % Monocytes % Eosinophils % Basophils % Absolute Neutrophils Absolute Lymphocytes Absolute Monocytes Absolute Eosinophils Absolute Basophils Platelet Comment Poikilocytosis Anisocytosis Target Cells Tear Drop Cells Ovalocytes Sodium Potassium Chloride Carbon Dioxide Anion Gap BUN Creatinine Est GFR ( Amer) Est GFR (Non-Af Amer) Glucose Calcium Phosphorus Magnesium Troponin I Urine Color YELLOW Urine Appearance CLOUDY Urine pH 6.0 Ur Specific Miles 1.009 Urine Protein 30 H Urine Glucose (UA) NEGATIVE Urine Ketones NEGATIVE Urine Blood SMALL H Urine Nitrite NEGATIVE Urine Bilirubin NEGATIVE Urine Urobilinogen 4.0 H Ur Leukocyte Esterase LARGE H Urine WBC (Auto) >182 Urine RBC (Auto) 97 Urine Bacteria (Auto) TRACE Squamous Epi Cells Auto 7 Amorphous Sediment Auto TRACE Urine Mucus (Auto) RARE Urine Ascorbic Acid NEGATIVE Chest X-Ray 07/12/17 17:17 IMPRESSION: NO ACUTE RADIOGRAPHIC FINDING IN THE CHEST. Head CT 07/12/17 17:17 IMPRESSION: No acute intracranial hemorrhage. No mass effect or midline shift. Old right hemisphere infarcts, unchanged from 2017 EVIDENCE OF ACUTE STROKE: NO. - Vital Signs Vital signs: Temp Pulse Resp BP Pulse Ox 97.8 F 82 13 166/109 H 98 07/12/17 17:00 07/12/17 21:12 07/12/17 21:02 07/12/17 21:12 07/12/17 21:02 - Laboratory Result Diagrams: 07/12/17 18:28 07/12/17 18:28 Laboratory results interpreted by me: 07/12/17 07/12/17 07/12/17 18:28 18:28 18:28 Hgb 10.8 L Hct 34.8 L MCV 76 L MCH 23.6 L MCHC 31.1 L RDW 26.2 H Carbon Dioxide 21 L Est GFR (Non-Af Amer) 56 L Glucose 143 H Urine Protein 30 H Urine Blood SMALL H Urine Urobilinogen 4.0 H Ur Leukocyte Esterase LARGE H - EKG Interpretation by Me EKG shows normal: Sinus rhythm - old CT inf/lat When compared to previous EKG there are: No significant change Discharge - Discharge Clinical Impression: CAD (coronary artery disease), Chest pain, Syncope, Carotid art occ w/o infarc , Carotid arterial disease Condition: Stable Disposition: ADMITTED INPATIENT Admitting Provider: Hospitalist - Dr. Riddle Unit Admitted: Telemetry Referrals: RTEVON SKAGGS PA-C [Primary Care Provider] - Follow up as needed
[2017-07-12 21:14] VITALS: BP 166/109
[2017-07-12] MEDS ORDERED: ACETAMINOPHEN 325 MG TABLET ONE (21:18)
[2017-07-12] MEDS ORDERED: ACETAMINOPHEN 325 MG TABLET PO ONE (21:45)
[2017-07-12] MEDS ORDERED: MAGNESIUM HYDROXIDE SUSP 30 ML UDCUP PO PRN (23:18)
[2017-07-12] MEDS ORDERED: IPRATROPIUM/ALBUTEROL 0.5-2.5 MG/3 ML AMPUL NEB PRN (23:18)
[2017-07-12] MEDS ORDERED: NORMAL SALINE 1000 ML 1,000 ML IV PRN (23:21)
[2017-07-13 00:36] LABS: URINE AMPHETAMINES SCREEN NEGATIVE; URINE BARBITURATES SCREEN NEGATIVE; URINE BENZODIAZEPINES SCREEN UNCONFIRMED POSITIVE; URINE COCAINE SCREEN NEGATIVE; URINE MARIJUANA (THC) SCREEN NEGATIVE; URINE METHADONE SCREEN NEGATIVE; URINE PHENCYCLIDINE SCREEN NEGATIVE
--- NOTE | 2017-07-13 05:31 | PDOC H&P ---
History of Present Illness Admission Date/PCP: 07/12/17 22:22 TREVON SKAGGS PA-C Patient complains of: Syncope History of Present Illness: CHARLEY SHERMAN is a 57 year old female with history of schizophrenia and depression, coronary artery disease status post coronary artery bypass graft, right sided total occlusion of the carotid artery, eczema, obesity, tobacco dependence and noncompliance. Patient presents several hours following an unwitnessed syncopal episode resulting in a fall to the floor and contusion to the head however there is no visible, palpable or imaged injury. Patient states this occurs nearly every day and mostly occurs upon standing from a seated position. Patient denies recent change in medication regiment though also denies benzodiazepine but is positive on urine drug screen. Patient has multiple very recent hospitalizations resulting in AMA but initial unremarkable workups. In the emergency room she is found to have orthostatic hypotension, mild microcytic anemia and pyuria suggestive of urinary tract infection without fever or leukocytosis. She receives empiric antibiotics and referred to the hospitalist for admission. Past Medical History Cardiac Medical History: Reports: Coronary Artery Disease, Myocardial Infarction - x2, Hyperlipidema, Hypertension Pulmonary Medical History: Reports: Bronchitis, Chronic Obstructive Pulmonary Disease (COPD) Endocrine Medical History: Reports: Diabetes Mellitus Type 2 GI Medical History: Reports: Gastroesophageal Reflux Disease Psychiatric Medical History: Reports: Bipolar Disorder, Depression, Schizoaffective Disorder, Tobacco Dependency Past Surgical History Past Surgical History: Reports: Cardiac Catheterization, Cholecystectomy, Coronary Artery Bypass Graft - September 2016, Coronary Stent - x2, Tonsillectomy, Tubal Ligation, Vascular Surgery Social History Information Source: Patient, [facility] Records Lives with: Alone Smoking Status: Current Every Day Smoker Frequency of Alcohol Use: None Hx Recreational Drug Use: No Drugs: None Hx Prescription Drug Abuse: No - Advance Directive Resuscitation Status: Full Code Family History Family History: CAD - Extensive heart disease in both parents and brother with brother dying from complications of cardiac stent placement Parental Family History Reviewed: Yes Children Family History Reviewed: Yes Sibling(s) Family History Reviewed.: Yes Medication/Allergy Home Medications: Aspirin [Aspirin 325 mg Tablet] 325 mg PO DAILY 07/12/17 Allergies/Adverse Reactions: haloperidol [From Haldol] Allergy (Verified 07/07/17 12:45) haloperidol lactate [From Haldol] Allergy (Verified 07/07/17 12:45) Review of Systems Constitutional: ABSENT: chills, fever(s), headache(s), weight gain, weight loss Eyes: ABSENT: visual disturbances Ears: ABSENT: hearing changes Cardiovascular: ABSENT: chest pain, dyspnea on exertion, edema, orthropnea, palpitations Respiratory: ABSENT: cough, hemoptysis Gastrointestinal: ABSENT: abdominal pain, constipation, diarrhea, hematemesis, hematochezia, nausea, vomiting Genitourinary: ABSENT: dysuria, hematuria Musculoskeletal: ABSENT: joint swelling Integumentary: ABSENT: rash, wounds Neurological: ABSENT: abnormal gait, abnormal speech, confusion, dizziness, focal weakness, syncope Psychiatric: ABSENT: anxiety, depression, homidical ideation, suicidal ideation Endocrine: ABSENT: cold intolerance, heat intolerance, polydipsia, polyuria Hematologic/Lymphatic: ABSENT: easy bleeding, easy bruising Physical Exam Vital Signs: Temp Pulse Resp BP Pulse Ox 97.8 F 82 13 166/109 H 98 07/12/17 17:00 07/12/17 21:12 07/12/17 21:02 07/12/17 21:12 07/12/17 21:02 General appearance: PRESENT: no acute distress, well-developed, well-nourished Head exam: PRESENT: atraumatic, normocephalic Eye exam: PRESENT: conjunctiva pink, EOMI, PERRLA. ABSENT: scleral icterus Ear exam: PRESENT: normal external ear exam Mouth exam: PRESENT: moist, tongue midline Neck exam: ABSENT: carotid bruit, JVD, lymphadenopathy, thyromegaly Respiratory exam: PRESENT: clear to auscultation ailyn. ABSENT: rales, rhonchi, wheezes Cardiovascular exam: PRESENT: RRR. ABSENT: diastolic murmur, rubs, systolic murmur Pulses: PRESENT: normal dorsalis pedis pul Vascular exam: PRESENT: normal capillary refill GI/Abdominal exam: PRESENT: normal bowel sounds, soft. ABSENT: distended, guarding, mass, organolmegaly, rebound, tenderness Rectal exam: PRESENT: deferred Extremities exam: PRESENT: full ROM. ABSENT: calf tenderness, clubbing, pedal edema Neurological exam: PRESENT: alert, awake, oriented to person, oriented to place , oriented to time, oriented to situation, CN II-XII grossly intact. ABSENT: motor sensory deficit Psychiatric exam: PRESENT: appropriate affect, normal mood. ABSENT: homicidal ideation, suicidal ideation Skin exam: PRESENT: dry, intact, warm. ABSENT: cyanosis, rash Results Impressions: Chest X-Ray 07/12/17 17:17 IMPRESSION: NO ACUTE RADIOGRAPHIC FINDING IN THE CHEST. Head CT 07/12/17 17:17 IMPRESSION: No acute intracranial hemorrhage. No mass effect or midline shift. Old right hemisphere infarcts, unchanged from 2017 EVIDENCE OF ACUTE STROKE: NO. Assessment & Plan - Diagnosis (1) Syncope Is this a current diagnosis for this admission?: Yes Plan: Complicated by right carotid artery occlusion, 50-60% on the left, benzodiazepine use and orthostatic hypotension. Patient will be admitted to a telemetry floor with an IV fluid challenge, physical therapy evaluation, education for avoidance of rapid change of position and DIANE stockings. (2) Urinary tract infection Is this a current diagnosis for this admission?: Yes Plan: Empiric antibiotics follow-up CBC and urine culture (3) Schizophrenia Is this a current diagnosis for this admission?: Yes Plan: Supportive care, tendency to leave AMA - Time Time Spent: 30 to 50 Minutes - Inpatient Certification Medical Necessity: Need Close Monitoring Due to Risk of Patient Decompensation
[2017-07-13] MEDS ORDERED: HEPARIN SOD (PORCINE) 5,000 UNIT/ML 1 ML SYRINGE SUBCUT SCH (06:00)
[2017-07-13] MEDS ORDERED: ASPIRIN 325 MG TABLET PO SCH (10:00)
[2017-07-13] MEDS ORDERED: DOCUSATE SODIUM 100 MG CAPSULE PO SCH (10:00)
== END 2017-07-12 23:00 | disposition other institution (70) ==
LOC: ER 16:29 → UNDOADMIN 22:22 → EH 22:22 → ER 23:00
DX: I65.29 Occlusion and stenosis of unspecified carotid artery (principal); I25.10 Atherosclerotic heart disease of native coronary artery without angina pectoris; R07.9 Chest pain, unspecified; R55 Syncope and collapse; R51 Headache; W18.39XA Other fall on same level, initial encounter; R21 Rash and other nonspecific skin eruption; I25.2 Old myocardial infarction; I10 Essential (primary) hypertension; J44.9 Chronic obstructive pulmonary disease, unspecified; E11.9 Type 2 diabetes mellitus without complications; F17.200 Nicotine dependence, unspecified, uncomplicated; Z95.5 Presence of coronary angioplasty implant and graft; Z95.1 Presence of aortocoronary bypass graft; Z88.8 Allergy status to other drugs, medicaments and biological substances; Z82.49 Family history of ischemic heart disease and other diseases of the circulatory system
CPT/HCPCS: 93005; 99285; 36415; 83735; 84100; 85025; 80048; 81001; 84484; 80307; 71046; 70450; 93010; J3490

== ENCOUNTER 2017-07-18 19:59 | Emergency (ER) | payer MEDICAID ==
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
[2017-07-18 21:52] VITALS: BP 170/120
== END 2017-07-18 21:53 | disposition home or self-care (01) ==
LOC: ER 19:59
DX: S09.90XA Unspecified injury of head, initial encounter (principal); R51 Headache; Y00.XXXA Assault by blunt object, initial encounter; F17.210 Nicotine dependence, cigarettes, uncomplicated; Z79.02 Long term (current) use of antithrombotics/antiplatelets
CPT/HCPCS: 70450; 99284

== ENCOUNTER 2017-07-25 07:14 | Emergency (ER) | payer MEDICAID ==
[2017-07-25 07:24] VITALS: BP 118/77
== END 2017-07-25 08:05 | disposition left against medical advice (07) ==
LOC: ER 07:14
DX: Z53.21 Procedure and treatment not carried out due to patient leaving prior to being seen by health care provider (principal)

== ENCOUNTER 2017-07-25 17:29 | Emergency (ER) | payer MEDICAID ==
[2017-07-25 17:49] VITALS: BP 139/77
[2017-07-25] MEDS ORDERED: ASPIRIN 81 MG TABLET, CHEWABLE PO ONE (18:11)
--- NOTE | 2017-07-25 18:14 | ER Document Report ---
ED Medical Screen (RME) - General Chief Complaint: Chest Pain Stated Complaint: CHEST PAIN Time Seen by Provider: 07/25/17 18:04 Notes: RAPID MEDICAL EVALUATION DISCLOSURE I have seen this patient as part of a Rapid Medical Evaluation and, if applicable, placed any initially appropriate orders. The patient will be seen and fully evaluated, including a full history and physical exam, by a provider ( in Main ED or Fast Track) when a room becomes available. 57-year-old female here with complaints of left-sided chest pain radiating up to the left shoulder with intermittent shortness of breath nausea vomiting. The symptoms started early this morning approximately 12 hours ago. It is worse more so with coughing and with movement of her arms and torso twisting. It is sometimes worse with exertion but not always. It is not worse with breathing. She has tried Tylenol for the pain. She called EMS this morning to bring her here however after being brought here I am told she immediately left without being seen. She was seen this morning standing at the intersection holding her thumb up hitchhiking for a ride immediately after leaving without being seen. EXAM CTAB RRR Moderate TTP left superior parasternal border TRAVEL OUTSIDE OF THE [place] IN LAST 30 DAYS: No - Related Data Allergies/Adverse Reactions: haloperidol [From Haldol] Allergy (Verified 07/25/17 07:16) haloperidol lactate [From Haldol] Allergy (Verified 07/25/17 07:16) Past Medical History - Social History Family history: Reviewed & Not Pertinent - Past Medical History Cardiac Medical History: Reports: Hx Coronary Artery Disease, Hx Heart Attack - x2, Hx Hypercholesterolemia, Hx Hypertension Pulmonary Medical History: Reports: Hx Bronchitis, Hx COPD Neurological Medical History: Reports: Hx Cerebrovascular Accident Endocrine Medical History: Reports: Hx Diabetes Mellitus Type 2 Renal/ Medical History: Reports: Hx Kidney Stones. Denies: Hx Peritoneal Dialysis GI Medical History: Reports: Hx Gastroesophageal Reflux Disease Psychiatric Medical History: Reports: Hx Bipolar Disorder, Hx Depression, Hx Schizoaffective Disorder, Hx Schizophrenia Past Surgical History: Reports: Hx Cardiac Catheterization, Hx Cardiac Surgery - stents, CABG 09/2016, Hx Cholecystectomy, Hx Coronary Artery Bypass Graft - September 2016, Hx Coronary Stent - x2, Hx Thyroid Surgery, Hx Tonsillectomy, Hx Tubal Ligation, Hx Urinary Tract Surgery, Hx Vascular Surgery - Immunizations Hx Diphtheria, Pertussis, Tetanus Vaccination: Yes History of Influenza Vaccine for 11/2016 - 04/2017 Season: Yes Influenza Administration Date for 11/2016 - 04/2017 Season: 11/29/16 Physical Exam - Vital signs Vitals: Temp Pulse Resp BP Pulse Ox 97.7 F 79 20 139/77 H 96 07/25/17 17:46 07/25/17 17:46 07/25/17 17:46 07/25/17 17:46 07/25/17 17:46 Course - Vital Signs Vital signs: Temp Pulse Resp BP Pulse Ox 97.7 F 79 20 139/77 H 96 07/25/17 17:46 07/25/17 17:46 07/25/17 17:46 07/25/17 17:46 07/25/17 17:46
--- NOTE | 2017-07-25 19:49 | RADIOLOGY REPORT (SQ) ---
EXAM DESCRIPTION: CHEST 2 VIEWS COMPLETED DATE/TIME: 07/25/2017 7:24 pm REASON FOR STUDY: CP COMPARISON: 07/12/2017. EXAM PARAMETERS: NUMBER OF VIEWS: two views TECHNIQUE: Digital Frontal and Lateral radiographic views of the chest acquired. RADIATION DOSE: NA LIMITATIONS: none FINDINGS: LUNGS AND PLEURA: Chronic interstitial changes. No focal infiltrates, masses or pneumotho rax. No pleural effusion. MEDIASTINUM AND HILAR STRUCTURES: No masses or contour abnormalities. HEART AND VASCULAR STRUCTURES: Heart upper limits of normal size. No evidence for failure. BONES: No acute findings. HARDWARE: Sternotomy wires and coronary bypass markers. OTHER: No other significant finding. IMPRESSION: NO ACUTE RADIOGRAPHIC FINDING IN THE CHEST. TECHNICAL DOCUMENTATION: JOB ID: [id number] [employer]- All Rights Reserved Reading location - IP/workstation name: [email or web address]
--- NOTE | 2017-07-25 23:26 | EKG REPORT ---
SEVERITY:- ABNORMAL ECG - SINUS RHYTHM INFERIOR INFARCT, OLD CONSIDER ANTERIOR INFARCT LATERAL LEADS ARE ALSO INVOLVED BORDERLINE PROLONGED QT INTERVAL : Confirmed by: Agustin Crawford MD 25-Jul-2017 23:25:53
== END 2017-07-25 20:00 | disposition left against medical advice (07) ==
LOC: ER 17:29
DX: R07.9 Chest pain, unspecified (principal); M25.512 Pain in left shoulder; R06.02 Shortness of breath; R11.2 Nausea with vomiting, unspecified; I25.10 Atherosclerotic heart disease of native coronary artery without angina pectoris; I25.2 Old myocardial infarction; E78.00 Pure hypercholesterolemia, unspecified; I10 Essential (primary) hypertension; Z86.73 Personal history of transient ischemic attack (TIA), and cerebral infarction without residual deficits; E11.9 Type 2 diabetes mellitus without complications; Z87.442 Personal history of urinary calculi; Z95.1 Presence of aortocoronary bypass graft
CPT/HCPCS: 71046; 93005; 93010; 99281

== ENCOUNTER 2017-08-10 16:28 | Emergency (ER) | payer MEDICAID ==
[2017-08-10 17:00] VITALS: BP 127/83
--- NOTE | 2017-08-10 17:05 | ER Document Report ---
ED Medical Screen (RME) - General Chief Complaint: Chest Pain Stated Complaint: CHEST PAIN Time Seen by Provider: 08/10/17 17:02 TRAVEL OUTSIDE OF THE [place] IN LAST 30 DAYS: No - HPI Notes: 08/10/17 17:05 Chest pain since 1400 - Related Data Allergies/Adverse Reactions: haloperidol [From Haldol] Allergy (Verified 08/10/17 16:29) haloperidol lactate [From Haldol] Allergy (Verified 08/10/17 16:29) Past Medical History - Social History Family history: Reviewed & Not Pertinent - Past Medical History Cardiac Medical History: Reports: Hx Coronary Artery Disease, Hx Heart Attack - x2, Hx Hypercholesterolemia, Hx Hypertension Pulmonary Medical History: Reports: Hx Bronchitis, Hx COPD Neurological Medical History: Reports: Hx Cerebrovascular Accident Endocrine Medical History: Reports: Hx Diabetes Mellitus Type 2 Renal/ Medical History: Reports: Hx Kidney Stones. Denies: Hx Peritoneal Dialysis GI Medical History: Reports: Hx Gastroesophageal Reflux Disease Psychiatric Medical History: Reports: Hx Bipolar Disorder, Hx Depression, Hx Schizoaffective Disorder, Hx Schizophrenia Past Surgical History: Reports: Hx Cardiac Catheterization, Hx Cardiac Surgery - stents, CABG 09/2016, Hx Cholecystectomy, Hx Coronary Artery Bypass Graft - September 2016, Hx Coronary Stent - x2, Hx Thyroid Surgery, Hx Tonsillectomy, Hx Tubal Ligation, Hx Urinary Tract Surgery, Hx Vascular Surgery - Immunizations Hx Diphtheria, Pertussis, Tetanus Vaccination: Yes History of Influenza Vaccine for 11/2016 - 04/2017 Season: Yes Influenza Administration Date for 11/2016 - 04/2017 Season: 11/29/16 Review of Systems - Review of Systems Cardiovascular: Chest pain Physical Exam - Vital signs Vitals: Temp Pulse Resp BP Pulse Ox 98.5 F 73 18 127/83 H 95 08/10/17 16:59 08/10/17 16:59 08/10/17 16:59 08/10/17 16:59 08/10/17 16:59 - Respiratory Respiratory status: No respiratory distress Chest status: Nontender Breath sounds: Normal Chest palpation: Normal Course - Vital Signs Vital signs: Temp Pulse Resp BP Pulse Ox 98.5 F 73 18 127/83 H 95 08/10/17 16:59 08/10/17 16:59 08/10/17 16:59 08/10/17 16:59 08/10/17 16:59 Doctor's Discharge - Discharge Referrals: BUNDLE,TREVON, PA-C [Primary Care Provider] - Follow up as needed
[2017-08-10 17:24] LABS: ABSOLUTE EOSINOPHILS # (AUTO) 0.1 10^3/uL (0.0-0.6); ABSOLUTE LYMPHOCYTES (AUTO) 3.2 10^3/uL (0.5-4.7); ABSOLUTE MONOCYTES (AUTO) 0.8 10^3/uL (0.1-1.4); ABSOLUTE NEUT (AUTO) 4.5 10^3/uL (1.7-8.2); BASOPHILS % (AUTO) 0.6 % (0-2); EOSINOPHILS % (AUTO) 1.7 % (0-6); HEMOGLOBIN 11.1 g/dL (12.0-15.5); LYMPHOCYTES % (AUTO) 36.8 % (13-45); MEAN CORPUSCULAR HEMOGLOBIN 23.8 pg (27.0-33.4); MEAN CORPUSCULAR HGB CONC 31.6 g/dL (32.0-36.0); MEAN CORPUSCULAR VOLUME 75 fl (80-97); MONOCYTES % (AUTO) 8.7 % (3-13); PLATELET COUNT 279 10^3/uL (150-450); RED BLOOD COUNT 4.65 10^6/uL (3.72-5.28); RED CELL DISTRIBUTION WIDTH 22.9 % (11.5-14.0); SEGMENTED NEUTROPHILS % (AUTO) 52.2 % (42-78); TOTAL CELLS COUNTED % (AUTO) 100 %; WHITE BLOOD COUNT 8.6 10^3/uL (4.0-10.5)
[2017-08-10 17:33] LABS: ANION GAP 17 (5-19); BLOOD UREA NITROGEN 17 mg/dL (7-20); CALCIUM 9.8 mg/dL (8.4-10.2); CARBON DIOXIDE 20 mmol/L (22-30); CHLORIDE 104 mmol/L (98-107); GLUCOSE 286 mg/dL (75-110); POTASSIUM 4.8 mmol/L (3.6-5.0)
--- NOTE | 2017-08-10 17:34 | RADIOLOGY REPORT (SQ) ---
EXAM DESCRIPTION: CHEST 2 VIEWS COMPLETED DATE/TIME: 08/10/2017 5:16 pm REASON FOR STUDY: cp COMPARISON: 07/25/2017 EXAM PARAMETERS: NUMBER OF VIEWS: two views TECHNIQUE: Digital Frontal and Lateral radiographic views of the chest acquired. RADIATION DOSE: NA LIMITATIONS: none FINDINGS: LUNGS AND PLEURA: No opacities, masses or pneumothorax. No pleural effusion. MEDIASTINUM AND HILAR STRUCTURES: No masses or contour abnormalities. HEART AND VASCULAR STRUCTURES: Cardiac silhouette is unchanged in configuration and is at the upper l imits of normal in size. There is mild pulmonary vascular congestion BONES: No acute findings. HARDWARE: Patient is status post median sternotomy with coronary bypass surgery. OTHER: No other significant finding. IMPRESSION: No significant interval change. No acute findings. Other findings as noted above TECHNICAL DOCUMENTATION: JOB ID: [id number] [employer]- All Rights Reserved Reading location - IP/workstation name: [email or web address]
--- NOTE | 2017-08-10 21:17 | EKG REPORT ---
SEVERITY:- ABNORMAL ECG - SINUS RHYTHM INFERIOR INFARCT, OLD LATERAL INFARCT, AGE INDETERMINATE PROLONGED QT INTERVAL : Confirmed by: Agustin Crawford MD 10-Aug-2017 21:16:34
== END 2017-08-10 18:45 | disposition left against medical advice (07) ==
LOC: ER 16:28
DX: R07.9 Chest pain, unspecified (principal); I25.10 Atherosclerotic heart disease of native coronary artery without angina pectoris; E78.00 Pure hypercholesterolemia, unspecified; I10 Essential (primary) hypertension; E11.9 Type 2 diabetes mellitus without complications; Z86.73 Personal history of transient ischemic attack (TIA), and cerebral infarction without residual deficits; I25.2 Old myocardial infarction; Z87.442 Personal history of urinary calculi; Z95.1 Presence of aortocoronary bypass graft; Z90.49 Acquired absence of other specified parts of digestive tract; Z98.51 Tubal ligation status
CPT/HCPCS: 36415; 71046; 80048; 84484; 85025; 93005; 93010; 99281

== ENCOUNTER 2017-08-14 20:04 | Emergency (ER) | payer MEDICAID ==
[2017-08-14 20:25] VITALS: BP 140/98
[2017-08-14] MEDS ORDERED: ASPIRIN 81 MG TABLET, CHEWABLE PO ONE (21:07)
--- NOTE | 2017-08-14 21:10 | ER Document Report ---
ED General - General Chief Complaint: Chest Pain Stated Complaint: CHEST PAIN Time Seen by Provider: 08/14/17 20:58 Mode of Arrival: Ambulatory Information source: Patient Notes: This is a 57-year-old female with a history of coronary artery disease, diabetes , hypertension who presents to the emergency room with intermittent chest pain throughout the day. Patient also reports a syncopal episode when she got up quickly to go to the kitchen. She states she was sitting watching TV on the couch at that time. She states she woke up on the floor. She denies that she was having any chest pain at that time. TRAVEL OUTSIDE OF THE [place] IN LAST 30 DAYS: No - HPI Onset: Last week Onset/Duration: Gradual Quality of pain: No pain Severity: None Pain Level: Denies Associated symptoms: Chest pain. denies: Fever, Shortness of breath Exacerbated by: Denies Relieved by: Denies Similar symptoms previously: Yes Recently seen / treated by doctor: No - Related Data Allergies/Adverse Reactions: haloperidol [From Haldol] Allergy (Verified 08/10/17 16:29) haloperidol lactate [From Haldol] Allergy (Verified 08/10/17 16:29) Past Medical History - General Information source: Patient - Social History Smoking Status: Current Every Day Smoker Cigarette use (# per day): Yes - 1-1/2 packs per day Chew tobacco use (# tins/day): No Frequency of alcohol use: None Drug Abuse: None Lives with: Family Family History: CAD - Extensive heart disease in both parents and brother with brother dying from complications of cardiac stent placement Patient has suicidal ideation: No Patient has homicidal ideation: No - Past Medical History Cardiac Medical History: Reports: Hx Coronary Artery Disease, Hx Heart Attack - x2, Hx Hypercholesterolemia, Hx Hypertension Pulmonary Medical History: Reports: Hx Bronchitis, Hx COPD Neurological Medical History: Reports: Hx Cerebrovascular Accident Endocrine Medical History: Reports: Hx Diabetes Mellitus Type 2 Renal/ Medical History: Reports: Hx Kidney Stones. Denies: Hx Peritoneal Dialysis GI Medical History: Reports: Hx Gastroesophageal Reflux Disease Psychiatric Medical History: Reports: Hx Bipolar Disorder, Hx Depression, Hx Schizoaffective Disorder, Hx Schizophrenia Past Surgical History: Reports: Hx Cardiac Catheterization, Hx Cardiac Surgery - stents, CABG 09/2016, Hx Cholecystectomy, Hx Coronary Artery Bypass Graft - September 2016, Hx Coronary Stent - x2, Hx Thyroid Surgery, Hx Tonsillectomy, Hx Tubal Ligation, Hx Urinary Tract Surgery, Hx Vascular Surgery - Immunizations Hx Diphtheria, Pertussis, Tetanus Vaccination: Yes Hx Pneumococcal Vaccination: 11/29/16 Review of Systems - Review of Systems Constitutional: denies: Chills, Fever EENT: No symptoms reported Cardiovascular: See HPI Respiratory: No symptoms reported Gastrointestinal: No symptoms reported Genitourinary: No symptoms reported Female Genitourinary: No symptoms reported Musculoskeletal: No symptoms reported Skin: No symptoms reported Hematologic/Lymphatic: No symptoms reported Neurological/Psychological: No symptoms reported Physical Exam - Vital signs Vitals: Temp Pulse Resp BP Pulse Ox 97.6 F 84 24 H 140/98 H 97 08/14/17 20:24 08/14/17 20:24 08/14/17 20:24 08/14/17 20:24 08/14/17 20:24 Notes: Physical exam: GENERAL: 57-year-old female, alert and oriented 3, no acute distress HEAD: Atraumatic, normocephalic. EYES: Pupils equal round and reactive to light, extraocular movements intact, sclera anicteric, conjunctiva are normal. ENT: TMs normal, nares patent, oropharynx clear without exudates. Moist mucous membranes. NECK: Normal range of motion, supple without obvious mass or JVD. LUNGS: Breath sounds clear to auscultation bilaterally and equal. No wheezes rales or rhonchi. HEART: Regular rate and rhythm without murmurs, rubs or gallops. ABDOMEN: Soft, normoactive bowel sounds. No tenderness to palpation. No guarding, no rebound. No masses appreciated. EXTREMITIES: Normal range of motion, no pitting or edema. No clubbing or cyanosis. NEUROLOGICAL: Cranial nerves II through XII grossly intact. Normal speech, moving all extremities. PSYCH: Normal mood, normal affect. SKIN: Warm, Dry, normal turgor, no rashes or lesions noted. Course - Re-evaluation Re-evalutation: 08/15/17 00:00 Note: A recommended patient for admission given her risk factors for coronary artery disease. She at some point walked out of the ER. - Vital Signs Vital signs: Temp Pulse Resp BP Pulse Ox 97.6 F 84 24 H 140/98 H 97 08/14/17 20:24 08/14/17 20:24 08/14/17 20:24 08/14/17 20:24 08/14/17 20:24 - Laboratory Result Diagrams: 08/14/17 21:42 08/14/17 21:42 Laboratory results interpreted by me: 08/14/17 08/14/17 21:42 21:42 Hgb 11.1 L Hct 35.7 L MCV 74 L MCH 23.2 L MCHC 31.2 L RDW 22.0 H Carbon Dioxide 21 L Creatinine 1.29 H Est GFR ( Amer) 51 L Est GFR (Non-Af Amer) 42 L Glucose 246 H Direct Bilirubin 0.9 H Alkaline Phosphatase 135 H Total Protein 8.4 H - Diagnostic Test Radiology reviewed: Image reviewed, Reports reviewed - No infiltrates - EKG Interpretation by Me Rate: Normal Rhythm: NSR - EKG shows normal sinus rhythm with a ventricular rate of 80, old inferior wall GA, no significant changes from an EKG performed August 10, 2017 Discharge - Discharge Clinical Impression: Chest pain, Syncope Disposition: AGAINST MEDICAL ADVICE Referrals: TREVON SKAGGS PA-C [Primary Care Provider] - Follow up as needed
[2017-08-14 21:53] LABS: ABSOLUTE BASOPHILS # (AUTO) 0.1 10^3/uL (0.0-0.2); ABSOLUTE EOSINOPHILS # (AUTO) 0.1 10^3/uL (0.0-0.6); ABSOLUTE LYMPHOCYTES (AUTO) 2.6 10^3/uL (0.5-4.7); ABSOLUTE MONOCYTES (AUTO) 0.7 10^3/uL (0.1-1.4); ABSOLUTE NEUT (AUTO) 4.4 10^3/uL (1.7-8.2); BASOPHILS % (AUTO) 1.4 % (0-2); EOSINOPHILS % (AUTO) 1.8 % (0-6); HEMATOCRIT 35.7 % (36.0-47.0); HEMOGLOBIN 11.1 g/dL (12.0-15.5); LYMPHOCYTES % (AUTO) 32.8 % (13-45); MEAN CORPUSCULAR HEMOGLOBIN 23.2 pg (27.0-33.4); MEAN CORPUSCULAR HGB CONC 31.2 g/dL (32.0-36.0); MEAN CORPUSCULAR VOLUME 74 fl (80-97); MONOCYTES % (AUTO) 8.5 % (3-13); PLATELET COUNT 266 10^3/uL (150-450); SEGMENTED NEUTROPHILS % (AUTO) 55.5 % (42-78); TOTAL CELLS COUNTED % (AUTO) 100 %
--- NOTE | 2017-08-14 21:54 | RADIOLOGY REPORT (SQ) ---
EXAM DESCRIPTION: CHEST SINGLE VIEW COMPLETED DATE/TIME: 08/14/2017 9:36 pm REASON FOR STUDY: cp COMPARISON: 08/10/2017 EXAM PARAMETERS: NUMBER OF VIEWS: One view. TECHNIQUE: Single frontal radiographic view of the chest acquired. RADIATION DOSE: NA LIMITATIONS: None. FINDINGS: LUNGS AND PLEURA: No opacities, masses or pneumothorax. No pleural effusion. MEDIASTINUM AND HILAR STRUCTURES: No masses. Contour normal. HEART AND VASCULAR STRUCTURES: Stable mild cardiomegaly. Normal central vasculature. BONES: No acute findings. HARDWARE: Midline surgical changes. OTHER: No other significant finding. IMPRESSION: Stable radiographic appearance of the chest. No evidence of acute cardiopulmonary abnor mality. TECHNICAL DOCUMENTATION: JOB ID: [id number] [employer]- All Rights Reserved Reading location - IP/workstation name: [email or web address]
[2017-08-14 22:11] LABS: ALANINE AMINOTRANSFERASE 15 U/L (9-52); ALBUMIN 4.2 g/dL (3.5-5.0); ALKALINE PHOSPHATASE 135 U/L (38-126); ANION GAP 16 (5-19); ASPARTATE AMINO TRANSFERASE 17 U/L (14-36); BILIRUBIN,DIRECT 0.9 mg/dL (0.0-0.4); BILIRUBIN,TOTAL 1.2 mg/dL (0.2-1.3); BLOOD UREA NITROGEN 17 mg/dL (7-20); CALCIUM 9.7 mg/dL (8.4-10.2); CARBON DIOXIDE 21 mmol/L (22-30); CHLORIDE 107 mmol/L (98-107); CREATINE KINASE 38 U/L (30-135); GLUCOSE 246 mg/dL (75-110); POTASSIUM 4.1 mmol/L (3.6-5.0); SODIUM 144.2 mmol/L (137-145); TOTAL PROTEIN 8.4 g/dL (6.3-8.2)
[2017-08-14 22:23] LABS: CREATINE KINASE MB 1.2 ng/mL (<4.55); TROPONIN I 0.018 ng/mL
--- NOTE | 2017-08-15 00:13 | EKG REPORT ---
SEVERITY:- ABNORMAL ECG - SINUS RHYTHM NONSPECIFIC INTRAVENTRICULAR CONDUCTION DELAY INFERIOR INFARCT, AGE INDETERMINATE LATERAL INFARCT, AGE INDETERMINATE CONSIDER ANTERIOR INFARCT : Confirmed by: Agustin Crawford MD 15-Aug-2017 00:12:31
== END 2017-08-14 22:15 | disposition left against medical advice (07) ==
LOC: ER 20:04
DX: R07.9 Chest pain, unspecified (principal); R55 Syncope and collapse; I25.10 Atherosclerotic heart disease of native coronary artery without angina pectoris; I10 Essential (primary) hypertension; I25.2 Old myocardial infarction; E11.9 Type 2 diabetes mellitus without complications; J44.9 Chronic obstructive pulmonary disease, unspecified; F17.210 Nicotine dependence, cigarettes, uncomplicated; Z95.1 Presence of aortocoronary bypass graft; Z95.5 Presence of coronary angioplasty implant and graft; Z88.8 Allergy status to other drugs, medicaments and biological substances; Z82.49 Family history of ischemic heart disease and other diseases of the circulatory system; Z53.20 Procedure and treatment not carried out because of patient's decision for unspecified reasons
CPT/HCPCS: 36415; 71045; 80053; 82550; 82553; 84484; 85025; 93005; 93010; 99285

== ENCOUNTER 2017-09-04 18:13 | Observation (INO) | payer MEDICAID ==
[2017-09-04] MEDS ORDERED: ASPIRIN 81 MG TABLET, CHEWABLE PO ONE (18:18)
--- NOTE | 2017-09-04 18:30 | ER Document Report ---
ED Medical Screen (RME) - General Chief Complaint: Chest Pressure Stated Complaint: CHEST PAIN Time Seen by Provider: 09/04/17 18:29 Notes: The patient is a 57-year-old female, past medical history CAD with quadruple bypass, hypertension, anxiety, current smoker, presents with diffuse anterior chest pain rating up to her right neck. She took 2 nitro at home without much relief of her symptoms. Denies shortness of breath or back pain. PE: NAD. Lungs CTAB. RRR. EKG is unchanged from prior EKG. I have greeted and performed a rapid initial assessment of this patient. A comprehensive ED assessment and evaluation of the patient, analysis of test results and completion of the medical decision making process will be conducted by additional ED providers. TRAVEL OUTSIDE OF THE [place] IN LAST 30 DAYS: No - Related Data Allergies/Adverse Reactions: haloperidol [From Haldol] Allergy (Verified 09/04/17 18:14) haloperidol lactate [From Haldol] Allergy (Verified 09/04/17 18:14) Past Medical History - Social History Family history: Reviewed & Not Pertinent - Past Medical History Cardiac Medical History: Reports: Hx Coronary Artery Disease, Hx Heart Attack - x2, Hx Hypercholesterolemia, Hx Hypertension Pulmonary Medical History: Reports: Hx Bronchitis, Hx COPD Neurological Medical History: Reports: Hx Cerebrovascular Accident Endocrine Medical History: Reports: Hx Diabetes Mellitus Type 2 Renal/ Medical History: Reports: Hx Kidney Stones. Denies: Hx Peritoneal Dialysis GI Medical History: Reports: Hx Gastroesophageal Reflux Disease Psychiatric Medical History: Reports: Hx Bipolar Disorder, Hx Depression, Hx Schizoaffective Disorder, Hx Schizophrenia Past Surgical History: Reports: Hx Cardiac Catheterization, Hx Cardiac Surgery - stents, CABG 09/2016, Hx Cholecystectomy, Hx Coronary Artery Bypass Graft - September 2016, Hx Coronary Stent - x2, Hx Thyroid Surgery, Hx Tonsillectomy, Hx Tubal Ligation, Hx Urinary Tract Surgery, Hx Vascular Surgery - Immunizations Hx Diphtheria, Pertussis, Tetanus Vaccination: Yes History of Influenza Vaccine for 11/2016 - 04/2017 Season: Yes Influenza Administration Date for 11/2016 - 04/2017 Season: 11/29/16 Physical Exam - Vital signs Vitals: Temp Pulse Resp BP Pulse Ox 97.7 F 91 16 151/89 H 100 09/04/17 18:26 09/04/17 18:26 09/04/17 18:26 09/04/17 18:26 09/04/17 18:26 Course - Vital Signs Vital signs: Temp Pulse Resp BP Pulse Ox 97.7 F 91 16 151/89 H 100 09/04/17 18:26 09/04/17 18:26 09/04/17 18:26 09/04/17 18:26 09/04/17 18:26 Doctor's Discharge - Discharge Referrals: TREVON SKAGGS PA-C [Primary Care Provider] - Follow up as needed
[2017-09-04 18:47] LABS: ABSOLUTE EOSINOPHILS # (AUTO) 0.2 10^3/uL (0.0-0.6); ABSOLUTE LYMPHOCYTES (AUTO) 2.2 10^3/uL (0.5-4.7); ABSOLUTE MONOCYTES (AUTO) 0.5 10^3/uL (0.1-1.4); ABSOLUTE NEUT (AUTO) 4.3 10^3/uL (1.7-8.2); BASOPHILS % (AUTO) 0.4 % (0-2); EOSINOPHILS % (AUTO) 2.2 % (0-6); HEMATOCRIT 33.1 % (36.0-47.0); HEMOGLOBIN 10.4 g/dL (12.0-15.5); LYMPHOCYTES % (AUTO) 30.6 % (13-45); MEAN CORPUSCULAR HEMOGLOBIN 23.4 pg (27.0-33.4); MEAN CORPUSCULAR HGB CONC 31.5 g/dL (32.0-36.0); MEAN CORPUSCULAR VOLUME 74 fl (80-97); MONOCYTES % (AUTO) 7.2 % (3-13); PLATELET COUNT 212 10^3/uL (150-450); RED BLOOD COUNT 4.45 10^6/uL (3.72-5.28); RED CELL DISTRIBUTION WIDTH 21.2 % (11.5-14.0); SEGMENTED NEUTROPHILS % (AUTO) 59.6 % (42-78); TOTAL CELLS COUNTED % (AUTO) 100 %; WHITE BLOOD COUNT 7.1 10^3/uL (4.0-10.5)
--- NOTE | 2017-09-04 18:52 | RADIOLOGY REPORT (SQ) ---
EXAM DESCRIPTION: CHEST 2 VIEWS COMPLETED DATE/TIME: 09/04/2017 6:44 pm REASON FOR STUDY: CP COMPARISON: None. EXAM PARAMETERS: NUMBER OF VIEWS: two views TECHNIQUE: Digital Frontal and Lateral radiographic views of the chest acquired. RADIATION DOSE: NA LIMITATIONS: none FINDINGS: LUNGS AND PLEURA: No opacities, masses or pneumothorax. No pleural effusion. MEDIASTINUM AND HILAR STRUCTURES: No masses or contour abnormalities. HEART AND VASCULAR STRUCTURES: Stable mild cardiomegaly. Normal central vasculature. BONES: No acute findings. HARDWARE: Midline surgical changes, stable. Right upper quadrant surgical clips. OTHER: No other significant finding. IMPRESSION: Stable radiographic appearance of the chest. No evidence of acute cardiopulmonary abnor mality. TECHNICAL DOCUMENTATION: JOB ID: [id number] [employer]- All Rights Reserved Reading location - IP/workstation name: [email or web address]
[2017-09-04 19:01] LABS: ALANINE AMINOTRANSFERASE 18 U/L (9-52); ALBUMIN 3.8 g/dL (3.5-5.0); ALKALINE PHOSPHATASE 114 U/L (38-126); ANION GAP 15 (5-19); ASPARTATE AMINO TRANSFERASE 24 U/L (14-36); BILIRUBIN,DIRECT 0.8 mg/dL (0.0-0.4); BILIRUBIN,TOTAL 1.1 mg/dL (0.2-1.3); BLOOD UREA NITROGEN 16 mg/dL (7-20); CALCIUM 9.3 mg/dL (8.4-10.2); CARBON DIOXIDE 21 mmol/L (22-30); CHLORIDE 108 mmol/L (98-107); CREATINE KINASE 198 U/L (30-135); GLUCOSE 283 mg/dL (75-110); POTASSIUM 4.1 mmol/L (3.6-5.0); SODIUM 143.5 mmol/L (137-145); TOTAL PROTEIN 7.8 g/dL (6.3-8.2)
[2017-09-04 19:13] LABS: CREATINE KINASE MB 3.86 ng/mL (<4.55)
[2017-09-04 19:18] LABS: TROPONIN I 0.046 ng/mL
--- NOTE | 2017-09-04 19:25 | ER Document Report ---
ED General - General Chief Complaint: Chest Pressure Stated Complaint: CHEST PAIN Time Seen by Provider: 09/04/17 18:29 Cannot obtain history due to: Mentally challenged Notes: Patient is a 57-year-old female with a past medical history of schizophrenia, coronary artery disease status post four-vessel bypass who presents with several days of intermittent chest pain. The patient describes it as an intermittent, burning, pressure-like sensation in her central chest. She denies any associated nausea, vomiting, diaphoresis or shortness of breath. She notes a long-standing history of similar symptoms in the past and has been to the emergency department frequently for this concern and often leaves AGAINST MEDICAL ADVICE prior to completion of her assessment. She has not seen her performance manager regarding today's concerns. She denies any pain at the time of my current assessment. TRAVEL OUTSIDE OF THE [place] IN LAST 30 DAYS: No - Related Data Allergies/Adverse Reactions: haloperidol [From Haldol] Allergy (Verified 09/04/17 18:14) haloperidol lactate [From Haldol] Allergy (Verified 09/04/17 18:14) Past Medical History - General Information source: Patient, Relative - Social History Smoking Status: Current Every Day Smoker Chew tobacco use (# tins/day): No Frequency of alcohol use: None Drug Abuse: None Lives with: Family Family History: CAD - Extensive heart disease in both parents and brother with brother dying from complications of cardiac stent placement Patient has suicidal ideation: No Patient has homicidal ideation: No - Past Medical History Cardiac Medical History: Reports: Hx Coronary Artery Disease, Hx Heart Attack - x2, Hx Hypercholesterolemia, Hx Hypertension Pulmonary Medical History: Reports: Hx Bronchitis, Hx COPD Neurological Medical History: Reports: Hx Cerebrovascular Accident Endocrine Medical History: Reports: Hx Diabetes Mellitus Type 2 Renal/ Medical History: Reports: Hx Kidney Stones. Denies: Hx Peritoneal Dialysis GI Medical History: Reports: Hx Gastroesophageal Reflux Disease Psychiatric Medical History: Reports: Hx Bipolar Disorder, Hx Depression, Hx Schizoaffective Disorder, Hx Schizophrenia Past Surgical History: Reports: Hx Cardiac Catheterization, Hx Cardiac Surgery - stents, CABG 09/2016, Hx Cholecystectomy, Hx Coronary Artery Bypass Graft - September 2016, Hx Coronary Stent - x2, Hx Thyroid Surgery, Hx Tonsillectomy, Hx Tubal Ligation, Hx Urinary Tract Surgery, Hx Vascular Surgery - Immunizations Hx Diphtheria, Pertussis, Tetanus Vaccination: Yes Hx Pneumococcal Vaccination: 11/29/16 Review of Systems - Review of Systems Notes: Constitutional: Negative for fever. HENT: Negative for sore throat. Eyes: Negative for visual changes. Cardiovascular: Positive for chest pain. Respiratory: Negative for shortness of breath. Gastrointestinal: Negative for abdominal pain, vomiting or diarrhea. Genitourinary: Negative for dysuria. Musculoskeletal: Negative for back pain. Skin: Negative for rash. Neurological: Negative for headaches, weakness or numbness. 10 point ROS negative except as marked above and in HPI. Physical Exam - Vital signs Vitals: Pulse Ox 98 09/04/17 18:18 Interpretation: Normal Notes: PHYSICAL EXAMINATION: GENERAL: Well-appearing, well-nourished and in no acute distress. HEAD: Atraumatic, normocephalic. EYES: Pupils equal round and reactive to light, extraocular movements intact, sclera anicteric, conjunctiva are normal. ENT: nares patent, oropharynx clear without exudates. Moist mucous membranes. NECK: Normal range of motion, supple without lymphadenopathy LUNGS: Breath sounds clear to auscultation bilaterally and equal. No wheezes rales or rhonchi. HEART: Regular rate and rhythm without murmurs ABDOMEN: Soft, nontender, normoactive bowel sounds. No guarding, no rebound. No masses appreciated. EXTREMITIES: Normal range of motion, no pitting or edema. No cyanosis. NEUROLOGICAL: No focal neurological deficits. Moves all extremities spontaneously and on command. PSYCH: Normal mood, normal affect. SKIN: Warm, Dry, normal turgor, no rashes or lesions noted. Course - Re-evaluation Re-evalutation: 09/04/17 19:31 Patient presents with 24 hours of persistent, intermittent chest pain without radiation to the arm, jaw or back. EKG unchanged from prior. She denies active chest pain at this time. She did take nitroglycerin prior to arrival with some improvement of her symptoms. She has a known history of coronary artery disease as well as a history of diabetes, hypertension and hyperlipidemia. She has high risk. Her troponin has come back in the indeterminate range of 0.046. I believe she warrants hospitalization for a stress test and serial cardiac enzymes. She may also require a catheterization which we do have available at this hospital now. The patient was directly confronted regarding her frequent elopements or leaving AGAINST MEDICAL ADVICE. I asked her directly if she plan to stay in the hospital and what I could do to prevent her from a looping or leaving AGAINST MEDICAL ADVICE. She states that she has a history of needing nicotine very badly and often does not receive nicotine replacement which causes her to leave. She also states that she needs her home medications which also help her feel more calm. I will give her home dose of Paxil and Seroquel per her request and I provide a nicotine patch. I have explained to her that she needs to remain in the hospital to complete her workup and that if she continues to leave AGAINST MEDICAL ADVICE we will be unable to determine why she is having recurrent chest pain and that she is high risk for an OR or if she continues with these behaviors. I discussed with Dr. Riddle who has accepted the patient for admission. - Vital Signs Vital signs: Temp Pulse Resp BP Pulse Ox 97.7 F 91 21 H 111/95 H 97 09/04/17 18:26 09/04/17 18:26 09/04/17 19:30 09/04/17 19:52 09/04/17 19:30 - Laboratory Result Diagrams: 09/04/17 18:35 09/04/17 18:35 Laboratory results interpreted by me: 09/04/17 09/04/17 09/04/17 18:35 18:35 18:35 Hgb 10.4 L Hct 33.1 L MCV 74 L MCH 23.4 L MCHC 31.5 L RDW 21.2 H Chloride 108 H Carbon Dioxide 21 L Creatinine 1.47 H Est GFR ( Amer) 44 L Est GFR (Non-Af Amer) 36 L Glucose 283 H TIBC 456 H Ferritin 6.85 L Direct Bilirubin 0.8 H Creatine Kinase 198 H - Diagnostic Test Radiology reviewed: Image reviewed, Reports reviewed Radiology results interpreted by me: 09/04/17 19:33 Chest x-ray: No acute infiltrate or pneumothorax - EKG Interpretation by Me Additional EKG results interpreted by me: 09/04/17 19:33 Sinus rhythm. Rate 93. Flattening of the lateral T waves in V5 through 6 unchanged from prior. QTC 498. EKG overall unchanged from the most recent assessment. Discharge - Discharge Clinical Impression: Chest pain Qualifiers: Chest pain type: unspecified Qualified Code(s): R07.9 - Chest pain, unspecified CAD (coronary artery disease) Qualifiers: Coronary Disease-Associated Artery/Lesion type: unspecified vessel or lesion type [place] vs. transplanted heart: [place] heart Associated angina: with unspecified angina Qualified Code(s): I25.119 - Atherosclerotic heart disease of [place] coronary artery with unspecified angina pectoris Condition: Fair Disposition: AGAINST MEDICAL ADVICE Admitting Provider: Hospitalist Unit Admitted: Telemetry
[2017-09-04] MEDS ORDERED: QUETIAPINE FUMARATE 100 MG TABLET PO ONE (19:29)
[2017-09-04] MEDS ORDERED: PAROXETINE HCL 20 MG TABLET PO ONE (19:31)
[2017-09-04] MEDS ORDERED: NICOTINE 21 MG/24 HR PATCH.TD24 TD ONE (19:31)
[2017-09-04] MEDS ORDERED: LACTULOSE SYRUP 20 GM/30 ML UDCUP PO ONE (19:32)
[2017-09-04 19:52] VITALS: BP 111/95
[2017-09-04] MEDS ORDERED: NITROGLYCERIN 0.4 MG/TAB 25 TAB/BOTTLE SL PRN (19:59)
[2017-09-04 20:22] LABS: URINE AMPHETAMINES SCREEN NEGATIVE; URINE BARBITURATES SCREEN NEGATIVE; URINE BENZODIAZEPINES SCREEN UNCONFIRMED POSITIVE; URINE COCAINE SCREEN NEGATIVE; URINE MARIJUANA (THC) SCREEN NEGATIVE; URINE METHADONE SCREEN NEGATIVE; URINE PHENCYCLIDINE SCREEN NEGATIVE
--- NOTE | 2017-09-04 21:06 | EKG REPORT ---
SEVERITY:- ABNORMAL ECG - SINUS RHYTHM INFERIOR INFARCT, AGE INDETERMINATE LATERAL INFARCT, AGE INDETERMINATE BORDERLINE PROLONGED QT INTERVAL : Confirmed by: Agustin Crawford MD 04-Sep-2017 21:05:46
[2017-09-04 21:24] LABS: ABSOLUTE RETICS # 0.053 10^6/uL (0.028-0.122); RETICULOCYTE COUNT (AUTO) 1.23 % (0.66-2.85)
[2017-09-04 21:40] LABS: IRON(TIBC) 45.2 ug/dL (37-170)
--- NOTE | 2017-09-04 22:00 | Progress Note ---
Provider Note Provider Note: Patient referred the hospitalist for evaluation of chest pain however left AGAINST MEDICAL ADVICE prior to being seen.
[2017-09-04 22:16] LABS: FERRITIN 6.85 ng/mL (11.1-264.0)
[2017-09-04 22:51] LABS: FOLATE > 20.00 ng/mL (>2.76)
[2017-09-05] MEDS ORDERED: DOCUSATE SODIUM 100 MG CAPSULE PO SCH (10:00)
[2017-09-05] MEDS ORDERED: IRON POLYSACCHARIDES COMPLEX 150 MG CAPSULE PO SCH (10:00)
== END 2017-09-04 20:50 | disposition left against medical advice (07) ==
LOC: ER 18:13 → EH 19:39
PROVIDERS: ADMIT Internal Medicine; ATTEND Internal Medicine
DX: R07.89 Other chest pain (principal); Z53.21 Procedure and treatment not carried out due to patient leaving prior to being seen by health care provider; I25.119 Atherosclerotic heart disease of native coronary artery with unspecified angina pectoris; I10 Essential (primary) hypertension; F41.9 Anxiety disorder, unspecified; F17.200 Nicotine dependence, unspecified, uncomplicated; Z95.1 Presence of aortocoronary bypass graft
CPT/HCPCS: 93005; 99285; 36415; 82553; 82607; 82550; 82728; 82746; 83540; 83550; 83690; 84443; 85025; 85045; 80053; 84484; 80307; 71046; 93010; J3490 ×3

== ENCOUNTER 2017-09-05 07:44 | Emergency (ER) | payer MEDICAID ==
[2017-09-05] MEDS ORDERED: ASPIRIN 81 MG TABLET, CHEWABLE PO ONE (08:23)
[2017-09-05] MEDS ORDERED: NITROGLYCERIN 0.4 MG/TAB 25 TAB/BOTTLE SL PRN (08:23)
--- NOTE | 2017-09-05 08:29 | ER Document Report ---
ED General - General Chief Complaint: Abdominal Pain Stated Complaint: ABDOMINAL PAIN Time Seen by Provider: 09/05/17 08:14 Mode of Arrival: Ambulatory Information source: Patient, [facility] Records Notes: 57-year-old female history of quadruple bypass presents with her complaints of chronic chest pain. Patient notes she took her medications last night after she left AGAINST MEDICAL ADVICE from the hospital. Patient denies any fevers or chills. Patient denies any difference in her chest pain than previous. She does request a nitroglycerin. TRAVEL OUTSIDE OF THE [place] IN LAST 30 DAYS: No - HPI Onset: Yesterday - Patient initially stated that she was having abdominal pain but now states that she is in fact having chest pain Onset/Duration: Waxing and waning Quality of pain: Pressure Severity: Mild Pain Level: 1 Associated symptoms: Chest pain Exacerbated by: Denies Relieved by: Denies Similar symptoms previously: Yes Recently seen / treated by doctor: Yes - Related Data Allergies/Adverse Reactions: haloperidol [From Haldol] Allergy (Verified 09/05/17 07:45) haloperidol lactate [From Haldol] Allergy (Verified 09/05/17 07:45) Past Medical History - Social History Smoking Status: Never Smoker Cigarette use (# per day): No Chew tobacco use (# tins/day): No Smoking Education Provided: No Family History: CAD - Extensive heart disease in both parents and brother with brother dying from complications of cardiac stent placement - Past Medical History Cardiac Medical History: Reports: Hx Coronary Artery Disease, Hx Heart Attack - x2, Hx Hypercholesterolemia, Hx Hypertension Pulmonary Medical History: Reports: Hx Bronchitis, Hx COPD Neurological Medical History: Reports: Hx Cerebrovascular Accident Endocrine Medical History: Reports: Hx Diabetes Mellitus Type 2 Renal/ Medical History: Reports: Hx Kidney Stones. Denies: Hx Peritoneal Dialysis GI Medical History: Reports: Hx Gastroesophageal Reflux Disease Psychiatric Medical History: Reports: Hx Bipolar Disorder, Hx Depression, Hx Schizoaffective Disorder, Hx Schizophrenia Past Surgical History: Reports: Hx Cardiac Catheterization, Hx Cardiac Surgery - stents, CABG 09/2016, Hx Cholecystectomy, Hx Coronary Artery Bypass Graft - September 2016, Hx Coronary Stent - x2, Hx Thyroid Surgery, Hx Tonsillectomy, Hx Tubal Ligation, Hx Urinary Tract Surgery, Hx Vascular Surgery - Immunizations Hx Diphtheria, Pertussis, Tetanus Vaccination: Yes Hx Pneumococcal Vaccination: 10/01/17 Review of Systems - Review of Systems Notes: REVIEW OF SYSTEMS: CONSTITUTIONAL : Denies fever, chills, or sweats. Denies recent illness. EENT: Denies eye, ear, throat, or mouth pain or symptoms. Denies nasal or sinus congestion or discharge. Denies throat, tongue, or mouth swelling or difficulty swallowing. CARDIOVASCULAR: Admits chest pain RESPIRATORY: Denies cough, cold, or chest congestion. Denies shortness of breath, difficulty breathing, or wheezing. GASTROINTESTINAL: Denies abdominal pain or distention. Denies nausea, vomiting , or diarrhea. Denies blood in vomitus, stools, or per rectum. Denies black, tarry stools. Denies constipation. GENITOURINARY: Denies difficulty urinating, painful urination, burning, frequency, blood in urine, or discharge. FEMALE GENITOURINARY: Denies vaginal bleeding, heavy or abnormal periods, irregular periods. Denies vaginal discharge or odor. MUSCULOSKELETAL: Denies back or neck pain or stiffness. Denies joint pain or swelling. SKIN: Denies rash, lesions or sores. HEMATOLOGIC : Denies easy bruising or bleeding. LYMPHATIC: Denies swollen, enlarged glands. NEUROLOGICAL: Denies confusion or altered mental status. Denies passing out or loss of consciousness. Denies dizziness or lightheadedness. Denies headache. Denies weakness or paralysis or loss of use of either side. Denies problems with gait or speech. Denies sensory loss, numbness, or tingling. Denies seizures. PSYCHIATRIC: Denies anxiety or stress. Denies depression, suicidal ideation, or homicidal ideation. ALL OTHER SYSTEMS REVIEWED AND NEGATIVE. PHYSICAL EXAMINATION: GENERAL: Well-appearing, well-nourished and in no acute distress. HEAD: Atraumatic, normocephalic. EYES: Pupils equal round and reactive to light, extraocular movements intact, conjunctiva are normal. ENT: Nares patent, oropharynx clear without exudates. Moist mucous membranes. NECK: Normal range of motion, supple without lymphadenopathy LUNGS: Breath sounds clear to auscultation bilaterally and equal. No wheezes rales or rhonchi. HEART: Regular rate and rhythm without murmurs ABDOMEN: Soft, nontender, nondistended abdomen. No guarding, no rebound. No masses appreciated. Female : deferred Musculoskeletal: Normal range of motion, no pitting or edema. No cyanosis. NEUROLOGICAL: Cranial nerves grossly intact. Normal speech, normal gait. Normal sensory, motor exams PSYCH: Normal mood, normal affect. SKIN: Warm, Dry, normal turgor, no rashes or lesions noted. Dictation was performed using [employer] voice recognition software Physical Exam - Vital signs Vitals: Temp Pulse Resp BP Pulse Ox 98.4 F 96 18 153/83 H 100 09/05/17 07:45 09/05/17 07:45 09/05/17 07:45 09/05/17 07:45 09/05/17 07:45 Course - Re-evaluation Re-evalutation: 09/05/17 08:28 Patient left AGAINST MEDICAL ADVICE yesterday, has been 14 hours since her last set of troponins, therefore I would expect if there is something cardiac in nature her troponins would have elevated by now. 09/05/17 08:29 09/05/17 10:05 Patient's troponin was not elevated, I will discharge her at this time to follow -up with her digital photographer as this is her chronic pain After performing a Medical Screening Examination, I estimate there is LOW risk for RUPTURED ESOPHAGUS, PNEUMOTHORAX, PULMONARY EMBOLISM, ACUTE CORONARY SYNDROME, OR THORACIC AORTIC DISSECTION, thus I consider the discharge disposition reasonable. I have reevaluated this patient multiple times and no significant life threatening changes are noted. The patient and I have discussed the diagnosis and risks, and we agree with discharging home with close follow-up. We also discussed returning to the Emergency Department immediately if new or worsening symptoms occur. We have discussed the symptoms which are most concerning (e.g., bloody sputum, worsening pain or shortness of breath) that necessitate immediate return. - Vital Signs Vital signs: Temp Pulse Resp BP Pulse Ox 98.4 F 96 18 153/83 H 100 09/05/17 07:45 09/05/17 07:45 09/05/17 07:45 09/05/17 07:45 09/05/17 07:45 - Laboratory Result Diagrams: 09/05/17 09:00 09/05/17 09:00 Laboratory results interpreted by me: 09/05/17 09/05/17 09:00 09:00 Hgb 9.9 L Hct 31.7 L MCV 75 L MCH 23.3 L MCHC 31.2 L RDW 21.4 H Creatinine 1.38 H Est GFR ( Amer) 47 L Est GFR (Non-Af Amer) 39 L Glucose 279 H Direct Bilirubin 0.8 H Creatine Kinase 162 H - EKG Interpretation by Me EKG shows normal: Sinus rhythm, [place], Intervals, QRS Complexes When compared to previous EKG there are: No significant change Discharge - Discharge Clinical Impression: Chest pain Qualifiers: Chest pain type: unspecified Qualified Code(s): R07.9 - Chest pain, unspecified Condition: Stable Disposition: HOME, SELF-CARE Instructions: Chest Pain of Unclear Cause ([facility]) Referrals: TREVON SKAGGS PA-C [Primary Care Provider] - Follow up tomorrow
[2017-09-05 09:17] LABS: ABSOLUTE EOSINOPHILS # (AUTO) 0.2 10^3/uL (0.0-0.6); ABSOLUTE LYMPHOCYTES (AUTO) 2.1 10^3/uL (0.5-4.7); ABSOLUTE MONOCYTES (AUTO) 0.8 10^3/uL (0.1-1.4); ABSOLUTE NEUT (AUTO) 4.8 10^3/uL (1.7-8.2); BASOPHILS % (AUTO) 0.6 % (0-2); EOSINOPHILS % (AUTO) 2.2 % (0-6); HEMATOCRIT 31.7 % (36.0-47.0); HEMOGLOBIN 9.9 g/dL (12.0-15.5); MEAN CORPUSCULAR HEMOGLOBIN 23.3 pg (27.0-33.4); MEAN CORPUSCULAR HGB CONC 31.2 g/dL (32.0-36.0); MEAN CORPUSCULAR VOLUME 75 fl (80-97); PLATELET COUNT 207 10^3/uL (150-450); RED BLOOD COUNT 4.24 10^6/uL (3.72-5.28); RED CELL DISTRIBUTION WIDTH 21.4 % (11.5-14.0); SEGMENTED NEUTROPHILS % (AUTO) 60.2 % (42-78); TOTAL CELLS COUNTED % (AUTO) 100 %; WHITE BLOOD COUNT 7.9 10^3/uL (4.0-10.5)
[2017-09-05 09:44] LABS: ALANINE AMINOTRANSFERASE 21 U/L (9-52); ALBUMIN 3.7 g/dL (3.5-5.0); ALKALINE PHOSPHATASE 113 U/L (38-126); ANION GAP 15 (5-19); ASPARTATE AMINO TRANSFERASE 22 U/L (14-36); BILIRUBIN,DIRECT 0.8 mg/dL (0.0-0.4); BLOOD UREA NITROGEN 14 mg/dL (7-20); CALCIUM 9.5 mg/dL (8.4-10.2); CARBON DIOXIDE 23 mmol/L (22-30); CHLORIDE 107 mmol/L (98-107); CREATINE KINASE 162 U/L (30-135); GLUCOSE 279 mg/dL (75-110); SODIUM 144.6 mmol/L (137-145); TOTAL PROTEIN 7.7 g/dL (6.3-8.2)
--- NOTE | 2017-09-05 09:47 | RADIOLOGY REPORT (SQ) ---
EXAM DESCRIPTION: CHEST SINGLE VIEW COMPLETED DATE/TIME: 09/05/2017 9:29 am REASON FOR STUDY: chest pain COMPARISON: 09/04/2017 NUMBER OF VIEWS: One view. TECHNIQUE: Single frontal radiographic view of the chest acquired. LIMITATIONS: None. FINDINGS: LUNGS AND PLEURA: No opacities, masses or pneumothorax. No pleural effusion. MEDIASTINUM AND HILAR STRUCTURES: Unchanged HEART AND VASCULAR STRUCTURES: Unchanged BONES: No acute findings. HARDWARE: CABG hardware. OTHER: No other significant finding. IMPRESSION: NO ACUTE RADIOGRAPHIC FINDING IN THE CHEST. PRIOR CABG. TECHNICAL DOCUMENTATION: JOB ID: [id number] [employer]- All Rights Reserved Reading location - IP/workstation name: [email or web address]
[2017-09-05 09:56] LABS: CREATINE KINASE MB 3.01 ng/mL (<4.55)
[2017-09-05 10:04] LABS: TROPONIN I 0.038 ng/mL
[2017-09-05 10:09] VITALS: BP 166/102
--- NOTE | 2017-09-05 15:29 | EKG REPORT ---
SEVERITY:- ABNORMAL ECG - SINUS RHYTHM INFERIOR INFARCT, AGE INDETERMINATE LATERAL INFARCT, AGE INDETERMINATE ABNRM R PROG, CONSIDER ASMI OR LEAD PLACEMENT BORDERLINE PROLONGED QT INTERVAL : Confirmed by: Agustin Crawford MD 05-Sep-2017 15:27:39
== END 2017-09-05 10:11 | disposition home or self-care (01) ==
LOC: ER 07:44
DX: R07.9 Chest pain, unspecified (principal); R10.9 Unspecified abdominal pain; G89.29 Other chronic pain; E78.00 Pure hypercholesterolemia, unspecified; I10 Essential (primary) hypertension; J44.9 Chronic obstructive pulmonary disease, unspecified; E11.9 Type 2 diabetes mellitus without complications; I25.2 Old myocardial infarction; Z95.1 Presence of aortocoronary bypass graft; Z90.49 Acquired absence of other specified parts of digestive tract; Z98.51 Tubal ligation status; Z87.442 Personal history of urinary calculi; Z86.73 Personal history of transient ischemic attack (TIA), and cerebral infarction without residual deficits
CPT/HCPCS: 93005; 99284; 36415; 82553; 82550; 85025; 80053; 84484; 71045; 93010; J3490

== ENCOUNTER 2017-09-15 09:32 | Emergency (ER) | payer MEDICAID ==
[2017-09-15 10:36] LABS: ABSOLUTE BASOPHILS # (AUTO) 0.1 10^3/uL (0.0-0.2); ABSOLUTE EOSINOPHILS # (AUTO) 0.1 10^3/uL (0.0-0.6); ABSOLUTE LYMPHOCYTES (AUTO) 2.2 10^3/uL (0.5-4.7); ABSOLUTE MONOCYTES (AUTO) 0.6 10^3/uL (0.1-1.4); ABSOLUTE NEUT (AUTO) 3.5 10^3/uL (1.7-8.2); BASOPHILS % (AUTO) 0.9 % (0-2); EOSINOPHILS % (AUTO) 1.8 % (0-6); HEMATOCRIT 31.1 % (36.0-47.0); HEMOGLOBIN 9.9 g/dL (12.0-15.5); LYMPHOCYTES % (AUTO) 33.7 % (13-45); MEAN CORPUSCULAR HEMOGLOBIN 23.7 pg (27.0-33.4); MEAN CORPUSCULAR HGB CONC 31.8 g/dL (32.0-36.0); MEAN CORPUSCULAR VOLUME 75 fl (80-97); MONOCYTES % (AUTO) 9.7 % (3-13); PLATELET COUNT 198 10^3/uL (150-450); RED BLOOD COUNT 4.17 10^6/uL (3.72-5.28); RED CELL DISTRIBUTION WIDTH 22.4 % (11.5-14.0); SEGMENTED NEUTROPHILS % (AUTO) 53.9 % (42-78); TOTAL CELLS COUNTED % (AUTO) 100 %; WHITE BLOOD COUNT 6.6 10^3/uL (4.0-10.5)
--- NOTE | 2017-09-15 10:46 | ER Document Report ---
ED General <VIELKA CASTRO - Last Filed: 09/15/17 12:30> - General Mode of Arrival: Ambulatory Information source: Patient TRAVEL OUTSIDE OF THE U.[place]. IN LAST 30 DAYS: No <RYAN LOPEZ - Last Filed: 09/15/17 14:25> - General Chief Complaint: Dizziness Stated Complaint: DIZZY Time Seen by Provider: 09/15/17 10:09 Notes: Patient is a 57 year old female that presents to the emergency department today with multiple complaints of dizziness, syncope, shortness of breath, and chest pain, along with abdominal pain and constipation. Brother at bedside states patient the patient has had multiple syncopal episodes all witnessed according to him. Patient has been at [facility] 3 times in the past week for constipation. Patient has not had a bowel movement for the last several days but did have results a few days ago at [place] with a milk of molasses enema. (RYAN LOPEZ) - Related Data Allergies/Adverse Reactions: haloperidol [From Haldol] Allergy (Verified 09/15/17 11:11) haloperidol lactate [From Haldol] Allergy (Verified 09/15/17 11:11) Past Medical History - General Information source: Patient - Social History Smoking Status: Unknown if Ever Smoked Cigarette use (# per day): No Frequency of alcohol use: None Drug Abuse: None Lives with: Family Family History: Reviewed & Not Pertinent, CAD - Extensive heart disease in both parents and brother with brother dying from complications of cardiac stent placement Patient has suicidal ideation: No Patient has homicidal ideation: No - Past Medical History Cardiac Medical History: Reports: Hx Coronary Artery Disease, Hx Heart Attack - x2, Hx Hypercholesterolemia, Hx Hypertension Pulmonary Medical History: Reports: Hx Bronchitis, Hx COPD Neurological Medical History: Reports: Hx Cerebrovascular Accident Endocrine Medical History: Reports: Hx Diabetes Mellitus Type 2 Renal/ Medical History: Reports: Hx Kidney Stones GI Medical History: Reports: Hx Gastroesophageal Reflux Disease Psychiatric Medical History: Reports: Hx Bipolar Disorder, Hx Depression, Hx Schizoaffective Disorder, Hx Schizophrenia Past Surgical History: Reports: Hx Cardiac Catheterization, Hx Cardiac Surgery - stents, CABG 09/2016, Hx Cholecystectomy, Hx Coronary Artery Bypass Graft - September 2016, Hx Coronary Stent - x2, Hx Thyroid Surgery, Hx Tonsillectomy, Hx Tubal Ligation, Hx Urinary Tract Surgery, Hx Vascular Surgery - Immunizations Hx Diphtheria, Pertussis, Tetanus Vaccination: Yes Hx Pneumococcal Vaccination: 11/29/16 <RYAN LOPEZ - Last Filed: 09/15/17 14:25> Review of Systems - Review of Systems Constitutional: No symptoms reported EENT: No symptoms reported Cardiovascular: See HPI, Chest pain Respiratory: See HPI, Short of breath Gastrointestinal: See HPI, Constipation Genitourinary: No symptoms reported Female Genitourinary: No symptoms reported Musculoskeletal: No symptoms reported Skin: No symptoms reported Hematologic/Lymphatic: No symptoms reported Neurological/Psychological: No symptoms reported -: Yes All other systems reviewed and negative <RYAN LOPEZ - Last Filed: 09/15/17 14:25> Physical Exam <VIELKA CASTRO - Last Filed: 09/15/17 12:30> <RYAN LOPEZ - Last Filed: 09/15/17 14:25> - Vital signs Vitals: Pulse Ox 100 09/15/17 09:40 - Notes Notes: Physical Exam: General: Alert, appears well. HEENT: Normocephalic. Atraumatic. PERRL. Extraocular movements intact. Oropharynx clear. Neck: Supple. Non-tender. Respiratory: No respiratory distress. Coarse breath sounds bilaterally consistent with smoking history. Cardiovascular: Regular rate and rhythm. Abdominal: Obese. Mild diffuse abdominal tenderness with palpation. No distension. Normal Bowel Sounds. Back: Non-tender. No deformity or step off. Extremities: Moves all four extremities. Upper extremities: Normal inspection. Normal ROM. Lower extremities: Normal inspection. No edema. Normal ROM. Neurological: Normal cognition. AAOx4. Normal speech. Psychological: Normal affect. Normal Mood. Skin: Warm. Dry. Normal color. (RYAN LOPEZ) Course - Laboratory Result Diagrams: 09/15/17 10:00 09/15/17 10:00 - Diagnostic Test Radiology reviewed: Image reviewed, Reports reviewed - Acute abdominal series shows large amount of stool in the colon particularly the transverse colon in the right colon. - EKG Interpretation by Me EKG shows normal: Sinus rhythm, [place], Intervals, ST-T Waves. abnormal: QRS Complexes - Old inferior infarct, probable old lateral infarct Rate: Normal - 58 Rhythm: NSR [place]/QRS: IVCD When compared to previous EKG there are: No significant change <VIELKA CASTRO - Last Filed: 09/15/17 12:30> - Laboratory Result Diagrams: 09/15/17 10:00 09/15/17 10:00 <RYAN LOPEZ - Last Filed: 09/15/17 14:25> - Re-evaluation Re-evalutation: 09/15/17 11:37 The patient's creatinine has been running between 1.0 and 1.6 throughout this year, until today and is now 2.39. 10 days ago was 1.38. Her GFR is now down to 21. I suspect this may be due to her getting contrast and many of those abdominal CT she has been going from facility to facility to obtain. 09/15/17 12:31 I had a long discussion with the patient and her family member about the climb in her creatinine and decline in her GFR which I think is related to inadequate fluid intake and the IV contrast she seems to be receiving. She is encouraged to drink plenty of fluids, to discuss her syncopal episodes and her renal function deterioration, her chronic abdominal pain that sounds like IBS, with her primary care provider tomorrow at her regularly scheduled appointment. She was given copies of her creatinines and GFR is since early May of this year. I also discussed the long-standing abdominal pains, constipation, and the nondiagnostic CT scans she has been receiving which also just she has irritable bowel syndrome constipation type. (VIELKA CASTRO) - Vital Signs Vital signs: Temp Pulse Resp BP Pulse Ox 17 139/91 H 100 09/15/17 11:37 09/15/17 11:37 09/15/17 12:02 - Laboratory Laboratory results interpreted by me: 09/15/17 09/15/17 10:00 10:00 Hgb 9.9 L Hct 31.1 L MCV 75 L MCH 23.7 L MCHC 31.8 L RDW 22.4 H Carbon Dioxide 20 L Creatinine 2.39 H Est GFR ( Amer) 25 L Est GFR (Non-Af Amer) 21 L Glucose 201 H Direct Bilirubin 0.9 H Discharge <VIELKA CASTRO - Last Filed: 09/15/17 12:30> <RYAN LOPEZ - Last Filed: 09/15/17 14:25> - Discharge Clinical Impression: Renal insufficiency, Syncope and collapse, Irritable bowel syndrome with constipation, Chronic abdominal pain Condition: Stable Disposition: HOME, SELF-CARE Additional Instructions: Irritable Bowel Syndrome The cause of irritable bowel syndrome is unknown. Although often called "colitis", it is not an infection or inflammatory condition. Symptoms vary, but can include periodic abdominal cramping, migratory abdominal pains, diarrhea, or constipation. Commonly, a few days of constipation is followed by loose stools, then constipation begins again. There is no specific test for irritable bowel syndrome. The disease is diagnosed by history and exam findings, and by finding no evidence of other disease. Irritable bowel syndrome is treated by making the stool softer and bulkier. Regular meals, including plenty of soluble fiber, help. Avoid foods which provoke cramping. Stool "bulking agents," such as Metamucil, help. Expect occasional flare-ups. Call the physician if symptoms worsen, such as severe or constant abdominal pain, fever, blood in the stool, increasing constipation, or more frequent or severe diarrhea. Constipation Constipation is a common problem. It is especially likely as you get older. Constipation is a common cause of abdominal pain, but sometimes causes no symptoms at all. Causes of constipation include certain medications, dehydration, diets, inactivity, and low-fiber intake. Rarely, it can be a symptom of underlying disease. The physician has evaluated you for this. Avoid constipation by eating a diet high in fiber, fruits, and vegetables. Drink plenty of liquids. Get regular exercise. If possible, avoid constipating medicines like narcotic pain medication. Some vitamin tablets can cause constipation. Stool softeners may be needed for difficult cases. An excellent stool softener is Konsyl which is available at [employer], and [employer] drug [employer]. Just add a teaspoon to a glass of pineapple or orange juice daily or twice a day if needed. Laxatives are useful for occasional constipation. You should use them only when necessary. Too-frequent use can make your bowels dependent on them. Some over the counter laxatives available without prescription are: Milk of Magnesia, 1-2 tablespoons twice a day Dulcolax, 5 mg pill or 10 mg suppository. Citrate of Magnesia, 4-5 ounces a day for a day or two For acute constipation, Fleet's Enemas and Dulcolax suppositories are helpful. Chronic, terminologist use of laxatives or enemas is not a good idea. Your bowel may become dependant on them. You do not need to have a bowel movement every day. Many people do fine with a bowel movement every three or four days. You should call your doctor or return for re-evaluation if you pass blood in the stool, or if you develop fever or increasing abdominal pain. Syncopal Episode Syncope (fainting or near-fainting) can occur from many different health problems. Or it can be a simple fainting spell requiring no treatment. It is safe for you to go home, but further evaluation will likely be necessary. Your work-up may include tests for internal bleeding, heart disease, medication problems, or near-strokes. Tests are not always required, however, depending on the nature of your problem. The warning signs of an impending faint include: dizziness, lightheadedness , nausea, hot flashes, tingling, and weakness. If this happens, lay down and put your feet up, then wait until all of these symptoms have passed before standing up again. If these episodes become recurrent, or if you develop chest pain, heart palpitations, mental confusion, blurred vision, or headache, then you should call the physician, or go to the emergency room. Kidney Function Abnormality Your evaluation has shown an abnormality of your kidney function. An abnormal kidney function test can be caused by dehydration, acute kidney damage , blood vessel disease (such as with diabetes or chronic high blood pressure), or just old age. If the abnormality is caused by an acute disease, it may reverse completely. Have a repeat test. If it's normal, don't worry about your kidneys. If you have a chronic kidney problem, you must be careful with medicines and medical tests. Be sure any doctor who prescribes medicine or orders tests knows that your kidney tests have been abnormal. Some medicines must have the dose reduced, other medicines must be avoided. If the doctor has recommended further workup, be sure to follow up as instructed. Call us if you have new flank pain, vomiting, confusion, or if you' re unable to urinate. Follow-up with your primary care provider as scheduled. Take the copies of the creatinine and GFR that were supplied to you. Talk to your primary care provider about your syncopal episodes, your declining kidney function, your abdominal pain with constipation, and the multiple facilities you have been going to to be evaluated for these ongoing problems. Be sure to drink plenty of fluids throughout the day for the next several days. RETURN TO THE EMERGENCY ROOM IF ANY NEW OR WORSENING SYMPTOMS. Referrals: TREVON SKAGGS PA-C [Primary Care Provider] - Follow up tomorrow Angella Attestation: 09/15/17 10:49 I personally performed the services described in the documentation, reviewed and edited the documentation which was dictated to the scribe in my presence, and it accurately records my words and actions. (VIELKA CASTRO) Scribe Documentation - Scribe Written by Angella:: Angella Constantino, 09/15/2017 1425 acting as scribe for :: Gabriel <RYAN LOPEZ - Last Filed: 09/15/17 14:25>
[2017-09-15 10:57] LABS: ALANINE AMINOTRANSFERASE 15 U/L (9-52); ALBUMIN 3.6 g/dL (3.5-5.0); ALKALINE PHOSPHATASE 104 U/L (38-126); ANION GAP 17 (5-19); ASPARTATE AMINO TRANSFERASE 19 U/L (14-36); BILIRUBIN,DIRECT 0.9 mg/dL (0.0-0.4); BILIRUBIN,TOTAL 1.1 mg/dL (0.2-1.3); BLOOD UREA NITROGEN 18 mg/dL (7-20); CALCIUM 9.2 mg/dL (8.4-10.2); CARBON DIOXIDE 20 mmol/L (22-30); CHLORIDE 106 mmol/L (98-107); CREATINE KINASE 58 U/L (30-135); GLUCOSE 201 mg/dL (75-110); SODIUM 143.3 mmol/L (137-145); TOTAL PROTEIN 7.4 g/dL (6.3-8.2)
[2017-09-15 11:09] LABS: CREATINE KINASE MB 1.3 ng/mL (<4.55); TROPONIN I 0.03 ng/mL
--- NOTE | 2017-09-15 11:29 | RADIOLOGY REPORT (SQ) ---
EXAM DESCRIPTION: ACUTE ABDOMEN SERIES COMPLETED DATE/TIME: 09/15/2017 11:06 am REASON FOR STUDY: Abdominal pain COMPARISON: Chest films 09/05/2017, 09/04/2017 CT angio chest 06/16/2017 Retroperitoneal ultrasound 06/01/2017 Abdominal films 05/23/2017 CT abdomen pelvis 12/12/2016 NUMBER OF VIEWS: Three views. TECHNIQUE: Frontal chest, supine abdomen and upright abdomen radiographic images acquired. LIMITATIONS: None. FINDINGS: CHEST: Lungs clear of infiltrates. No pleural effusion or pneumothorax. Post sternotomy for CABG. No cardiomegaly. FREE AIR: None. No abnormal gas collections. BOWEL GAS PATTERN: Nonobstructive pattern. No dilated loops or air fluid levels. Moderate stool in t he transverse colon. CALCIFICATIONS: No suspicious calcifications. HARDWARE: Clips right upper quadrant post cholecystectomy. SOFT TISSUES: No gross mass or suggestion of organomegaly. BONES: No acute fracture. No worrisome bone lesions. OTHER: No other significant finding. IMPRESSION: No acute infiltrates. Nonobstructive bowel gas pattern. Moderate stool in the transver se colon. Post cholecystectomy. TECHNICAL DOCUMENTATION: JOB ID: [id number] [employer]- All Rights Reserved Reading location - IP/workstation name: [email or web address]
[2017-09-15 13:11] VITALS: BP 139/91
--- NOTE | 2017-09-15 21:57 | EKG REPORT ---
SEVERITY:- ABNORMAL ECG - SINUS RHYTHM NONSPECIFIC INTRAVENTRICULAR CONDUCTION DELAY INFERIOR INFARCT, OLD LATERAL INFARCT, AGE INDETERMINATE CONSIDER ANTERIOR INFARCT : Confirmed by: Ermias Smith 15-Sep-2017 21:56:22
== END 2017-09-15 13:11 | disposition home or self-care (01) ==
LOC: ER 09:32
DX: N28.9 Disorder of kidney and ureter, unspecified (principal); K58.1 Irritable bowel syndrome with constipation; G89.29 Other chronic pain; R10.9 Unspecified abdominal pain; R06.02 Shortness of breath; R42 Dizziness and giddiness; R55 Syncope and collapse; R07.9 Chest pain, unspecified; I25.10 Atherosclerotic heart disease of native coronary artery without angina pectoris; E78.00 Pure hypercholesterolemia, unspecified; E11.9 Type 2 diabetes mellitus without complications; I25.2 Old myocardial infarction; Z87.442 Personal history of urinary calculi; Z95.1 Presence of aortocoronary bypass graft; Z90.49 Acquired absence of other specified parts of digestive tract; Z98.51 Tubal ligation status
CPT/HCPCS: 36415; 74022; 80053; 82550; 82553; 84484; 85025; 93005; 93010; 99284

== ENCOUNTER 2017-10-04 02:42 | Emergency (ER) | payer MEDICAID ==
[2017-10-04] MEDS ORDERED: NORMAL SALINE 1000 ML 1,000 ML IV ONE (04:15)
--- NOTE | 2017-10-04 04:43 | ER Document Report ---
ED General - General Chief Complaint: Abdominal Pain Stated Complaint: ABDOMINAL PAIN Time Seen by Provider: 10/04/17 03:38 Mode of Arrival: Ambulatory Information source: Patient Notes: Patient is a 57-year-old female who presents with chief complaint of abdominal pain. Patient reports the pain has been going on for 4 months and 8 days. Patient reports that she has been seen in this emergency department several times for this. Patient reports that she saw her primary care provider 2 weeks ago for the symptoms. Patient reports that she was seen at [facility] emergency department 3 days ago (2 visits in 1 day) for the same symptoms. Patient reports that [place] diagnosed her with "severely abnormal kidney function", a kidney infection and a sexually transmitted disease. Patient currently denies any fevers or urinary symptoms, denies any vaginal discharge. Patient does report vomiting yellow bile and reports that she was having constipation however she now has diarrhea after taking multiple doses of laxative. TRAVEL OUTSIDE OF THE [place] IN LAST 30 DAYS: No - Related Data Allergies/Adverse Reactions: haloperidol [From Haldol] Allergy (Verified 09/15/17 11:11) haloperidol lactate [From Haldol] Allergy (Verified 09/15/17 11:11) Past Medical History - General Information source: Patient - Social History Smoking Status: Never Smoker Frequency of alcohol use: None Drug Abuse: None Family History: Reviewed & Not Pertinent, CAD - Extensive heart disease in both parents and brother with brother dying from complications of cardiac stent placement - Past Medical History Cardiac Medical History: Reports: Hx Coronary Artery Disease, Hx Heart Attack - x2, Hx Hypercholesterolemia, Hx Hypertension Pulmonary Medical History: Reports: Hx Bronchitis, Hx COPD Neurological Medical History: Reports: Hx Cerebrovascular Accident Endocrine Medical History: Reports: Hx Diabetes Mellitus Type 2 Renal/ Medical History: Reports: Hx Kidney Stones. Denies: Hx Peritoneal Dialysis GI Medical History: Reports: Hx Gastroesophageal Reflux Disease Psychiatric Medical History: Reports: Hx Bipolar Disorder, Hx Depression, Hx Schizoaffective Disorder, Hx Schizophrenia Past Surgical History: Reports: Hx Cardiac Catheterization, Hx Cardiac Surgery - stents, CABG 09/2016, Hx Cholecystectomy, Hx Coronary Artery Bypass Graft - September 2016, Hx Coronary Stent - x2, Hx Thyroid Surgery, Hx Tonsillectomy, Hx Tubal Ligation, Hx Urinary Tract Surgery, Hx Vascular Surgery - Immunizations Hx Diphtheria, Pertussis, Tetanus Vaccination: Yes Hx Pneumococcal Vaccination: 11/29/16 Review of Systems - Review of Systems Constitutional: No symptoms reported EENT: No symptoms reported Cardiovascular: No symptoms reported Respiratory: No symptoms reported Gastrointestinal: See HPI Genitourinary: No symptoms reported Female Genitourinary: No symptoms reported Musculoskeletal: No symptoms reported Skin: No symptoms reported Hematologic/Lymphatic: No symptoms reported Neurological/Psychological: No symptoms reported Physical Exam - Vital signs Vitals: Temp Pulse Resp BP Pulse Ox 98.3 F 76 20 170/98 H 99 10/04/17 03:02 10/04/17 03:02 10/04/17 03:02 10/04/17 03:02 10/04/17 03:02 - Notes Notes: PHYSICAL EXAMINATION: GENERAL: Well-appearing, well-nourished and in no acute distress. HEAD: Atraumatic, normocephalic. EYES: Pupils equal round and reactive to light, extraocular movements intact, conjunctiva are normal. ENT: Nares patent, oropharynx clear without exudates. Moist mucous membranes. NECK: Normal range of motion, supple without lymphadenopathy LUNGS: Breath sounds clear to auscultation bilaterally and equal. No wheezes rales or rhonchi. HEART: Regular rate and rhythm without murmurs ABDOMEN: Soft, nondistended abdomen. No guarding, no rebound. No masses appreciated. Tenderness to palpation to generalized abdomen. Female : No CVA tenderness. Musculoskeletal: Normal range of motion, no pitting or edema. No cyanosis. NEUROLOGICAL: Cranial nerves grossly intact. Normal speech, normal gait. Normal sensory, motor exams PSYCH: Normal mood, normal affect. SKIN: Warm, Dry, normal turgor, no rashes or lesions noted. Course - Re-evaluation Re-evalutation: 10/04/17 04:41 Will obtain records from [facility] emergency department to get baseline labs from 3 days ago. Patient appears nontoxic, in no acute distress. Patient with complaint of abdominal pain and dark urine that appears "foggy" patient does have a history of schizophrenia and is a poor historian. Will draw CBC, CMP, lipase and obtain a urine for urinalysis. Patient will be given 1 L saline bolus she reports that she has not been able to drink adequate oral fluids. Patient was started on Flagyl and Macrobid on 10/01/17 for trichomonas as well as a urinary tract infection. CBC unremarkable, CMP with mildly elevated creatinine at 1.47, GFR 36, lipase is normal. Patient has now been medicated with 2 doses of IV morphine. Patient appears much more comfortable at this time. Urinalysis was just sent down to lab. 10/04/17 07:09 Urinalysis is much improved in comparison with records from [facility] emergency department on 10/01/17. Patient will be encouraged to continue with the antibiotic she is Wojciech taking. Patient will be discharged home in stable condition as there are no acute findings on today's visit, patient's labs are improved from 3 days ago. - Vital Signs Vital signs: Temp Pulse Resp BP Pulse Ox 97.7 F 74 16 149/95 H 94 10/04/17 08:00 10/04/17 08:00 10/04/17 08:00 10/04/17 08:00 10/04/17 08:00 - Laboratory Result Diagrams: 10/04/17 04:45 10/04/17 04:45 Laboratory results interpreted by me: 10/04/17 10/04/17 10/04/17 04:45 04:45 06:46 Hgb 11.2 L Hct 35.4 L MCV 74 L MCH 23.4 L MCHC 31.7 L RDW 23.5 H Sodium 145.4 H Chloride 108 H Carbon Dioxide 21 L Creatinine 1.47 H Est GFR ( Amer) 44 L Est GFR (Non-Af Amer) 36 L Glucose 166 H Total Bilirubin 1.5 H Direct Bilirubin 1.0 H Urine Protein 100 H Urine Glucose (UA) 50 H Urine Urobilinogen 4.0 H Ur Leukocyte Esterase TRACE H Discharge - Discharge Clinical Impression: Abdominal pain Qualifiers: Abdominal location: generalized Qualified Code(s): R10.84 - Generalized abdominal pain Condition: Stable Disposition: HOME, SELF-CARE Additional Instructions: Your workup today was normal. Your kidney function is actually improved from 3 days ago at [facility]. Your urine today looks improved from 3 days ago at [facility]. Please continue the antibiotics that they placed you on. Continue taking the Flagyl in the Macrobid until it is completed. Please follow-up with your primary care provider for a follow-up in the next 2-3 days. Referrals: TREVON SKAGGS PA-C [Primary Care Provider] - Follow up as needed
[2017-10-04] MEDS ORDERED: ONDANSETRON HCL INJ/PF 4 MG/2 ML SDV IV ONE (05:02)
[2017-10-04] MEDS ORDERED: MORPHINE SULFATE 10 MG/ML INJ IV ONE ×2 (05:02→06:10)
[2017-10-04 05:16] LABS: ABSOLUTE EOSINOPHILS # (AUTO) 0.1 10^3/uL (0.0-0.6); ABSOLUTE LYMPHOCYTES (AUTO) 2.4 10^3/uL (0.5-4.7); ABSOLUTE MONOCYTES (AUTO) 0.9 10^3/uL (0.1-1.4); ABSOLUTE NEUT (AUTO) 5.9 10^3/uL (1.7-8.2); BASOPHILS % (AUTO) 0.3 % (0-2); EOSINOPHILS % (AUTO) 0.8 % (0-6); HEMATOCRIT 35.4 % (36.0-47.0); HEMOGLOBIN 11.2 g/dL (12.0-15.5); MEAN CORPUSCULAR HEMOGLOBIN 23.4 pg (27.0-33.4); MEAN CORPUSCULAR HGB CONC 31.7 g/dL (32.0-36.0); MEAN CORPUSCULAR VOLUME 74 fl (80-97); MONOCYTES % (AUTO) 9.9 % (3-13); PLATELET COUNT 248 10^3/uL (150-450); RED BLOOD COUNT 4.81 10^6/uL (3.72-5.28); RED CELL DISTRIBUTION WIDTH 23.5 % (11.5-14.0); TOTAL CELLS COUNTED % (AUTO) 100 %; WHITE BLOOD COUNT 9.3 10^3/uL (4.0-10.5)
[2017-10-04 05:57] LABS: ALANINE AMINOTRANSFERASE 16 U/L (9-52); ALKALINE PHOSPHATASE 120 U/L (38-126); ANION GAP 16 (5-19); ASPARTATE AMINO TRANSFERASE 24 U/L (14-36); BILIRUBIN,TOTAL 1.5 mg/dL (0.2-1.3); BLOOD UREA NITROGEN 14 mg/dL (7-20); CALCIUM 9.7 mg/dL (8.4-10.2); CARBON DIOXIDE 21 mmol/L (22-30); CHLORIDE 108 mmol/L (98-107); GLUCOSE 166 mg/dL (75-110); LIPASE 59.8 U/L (23-300); POTASSIUM 3.7 mmol/L (3.6-5.0); SODIUM 145.4 mmol/L (137-145); TOTAL PROTEIN 8.1 g/dL (6.3-8.2)
[2017-10-04 07:02] LABS: APPEARANCE,URINE SLIGHTLY-CLOUDY; BILIRUBIN,URINE NEGATIVE (NEGATIVE); COLOR,URINE YELLOW; GLUCOSE, URINE 50 mg/dL (NEGATIVE); KETONES,URINE NEGATIVE (NEGATIVE); LEUKOCYTE ESTERASE,URINE TRACE (NEGATIVE); NITRITE,URINE NEGATIVE (NEGATIVE); PROTEIN,URINE 100 mg/dL (NEGATIVE); URINE SPECIFIC GRAVITY 1.013
[2017-10-04] MEDS ORDERED: ONDANSETRON ODT 4 MG TAB (6 TAB/ER DISP) PO PRN (07:12)
[2017-10-04 08:22] VITALS: BP 149/95
== END 2017-10-04 08:22 | disposition home or self-care (01) ==
LOC: ER 02:42
DX: R10.84 Generalized abdominal pain (principal); I25.10 Atherosclerotic heart disease of native coronary artery without angina pectoris; E78.00 Pure hypercholesterolemia, unspecified; I10 Essential (primary) hypertension; E11.9 Type 2 diabetes mellitus without complications; I25.2 Old myocardial infarction; Z95.1 Presence of aortocoronary bypass graft; Z90.49 Acquired absence of other specified parts of digestive tract; Z98.51 Tubal ligation status; Z87.442 Personal history of urinary calculi
CPT/HCPCS: 96376; 99284; 96361; 96374; 96375; 36415; 83690; 85025; 80053; 81001; J2270; J2405; J7030

== ENCOUNTER 2017-11-15 16:51 | Emergency (ER) | payer MEDICAID ==
[2017-11-15 17:17] VITALS: BP 121/73
[2017-11-15] MEDS ORDERED: KETOROLAC TROMETHAMINE INJ/PF 30 MG/1 ML SDV IV ONE (17:57)
[2017-11-15] MEDS ORDERED: FENTANYL CITRATE INJ/PF 100 MCG/2 ML AMPUL IV ONE (17:57)
[2017-11-15] MEDS ORDERED: ONDANSETRON HCL INJ/PF 4 MG/2 ML SDV IV ONE (17:57)
[2017-11-15] MEDS ORDERED: NORMAL SALINE 1000 ML 1,000 ML IV ONE (17:57)
[2017-11-15] MEDS ORDERED: DICYCLOMINE HCL INJ 20 MG/2 ML AMPULE IM ONE (18:00)
--- NOTE | 2017-11-15 18:02 | ER Document Report ---
ED Medical Screen (RME) - General TRAVEL OUTSIDE OF THE [place]. IN LAST 30 DAYS: No <ELSIE LAMBERT - Last Filed: 11/15/17 18:01> - General Mode of Arrival: Ambulatory Information source: Patient <SALAZAR CHINCHILLA - Last Filed: 11/15/17 23:50> - General Chief Complaint: Abdominal Pain Stated Complaint: ABDOMINAL PAIN Time Seen by Provider: 11/15/17 17:56 Notes: 57 years old female presents today with abdominal pain over the left side of the abdomen since this morning, and was constipated for 14 days. Did not have a single bowel movement. Has nausea no vomiting. Denies any fever chills. (ELSIE LAMBERT) - Related Data Allergies/Adverse Reactions: haloperidol [From Haldol] Allergy (Verified 11/15/17 16:52) haloperidol lactate [From Haldol] Allergy (Verified 11/15/17 16:52) Past Medical History - Social History Chew tobacco use (# tins/day): No Frequency of alcohol use: None Drug Abuse: None Family history: Reviewed & Not Pertinent - Past Medical History Cardiac Medical History: Reports: Hx Coronary Artery Disease, Hx Heart Attack - x2, Hx Hypercholesterolemia, Hx Hypertension Pulmonary Medical History: Reports: Hx Bronchitis, Hx COPD Neurological Medical History: Reports: Hx Cerebrovascular Accident Endocrine Medical History: Reports: Hx Diabetes Mellitus Type 2 Renal/ Medical History: Reports: Hx Kidney Stones. Denies: Hx Peritoneal Dialysis GI Medical History: Reports: Hx Gastroesophageal Reflux Disease Psychiatric Medical History: Reports: Hx Bipolar Disorder, Hx Depression, Hx Schizoaffective Disorder, Hx Schizophrenia Past Surgical History: Reports: Hx Cardiac Catheterization, Hx Cardiac Surgery - stents, CABG 09/2016, Hx Cholecystectomy, Hx Coronary Artery Bypass Graft - September 2016, Hx Coronary Stent - x2, Hx Thyroid Surgery, Hx Tonsillectomy, Hx Tubal Ligation, Hx Urinary Tract Surgery, Hx Vascular Surgery - Immunizations Hx Diphtheria, Pertussis, Tetanus Vaccination: Yes History of Influenza Vaccine for 11/2016 - 04/2017 Season: Yes Influenza Administration Date for 11/2016 - 04/2017 Season: 11/29/16 <ELSIE LAMBERT - Last Filed: 11/15/17 18:01> - Vital signs Vitals: Temp Pulse Resp BP Pulse Ox 97.6 F 86 16 121/73 98 11/15/17 17:15 11/15/17 17:15 11/15/17 17:15 11/15/17 17:15 11/15/17 17:15 Course - Laboratory Result Diagrams: 11/15/17 21:15 11/15/17 21:15 - Diagnostic Test Radiology reviewed: Reports reviewed - Nonacute - EKG Interpretation by Me Rhythm: NSR - Rate 86, normal sinus rhythm, Q waves suggestive of prior infarct noted. ST depression appears fairly diffuse but this all appears consistent with 09/15/2017 <SALAZAR CHINCHILLA - Last Filed: 11/15/17 23:50> - Vital Signs Vital signs: Temp Pulse Resp BP Pulse Ox 97.6 F 86 16 121/73 98 11/15/17 17:15 11/15/17 17:15 11/15/17 17:15 11/15/17 17:15 11/15/17 17:15 - Laboratory Laboratory results interpreted by me: 11/15/17 11/15/17 21:15 21:15 Hgb 10.6 L Hct 33.7 L MCV 71 L MCH 22.5 L MCHC 31.5 L RDW 22.9 H Potassium 3.2 L Est GFR ( Amer) 57 L Est GFR (Non-Af Amer) 47 L Glucose 161 H Total Bilirubin 2.4 H Direct Bilirubin 1.6 H Total Protein 8.8 H Doctor's Discharge <ELSIE LAMBERT - Last Filed: 11/15/17 18:01> <SALAZAR CHINCHILLA - Last Filed: 11/15/17 23:50> - Discharge Referrals: TREVON SKAGGS PA-C [Primary Care Provider] - Follow up as needed
--- NOTE | 2017-11-15 18:51 | RADIOLOGY REPORT (SQ) ---
EXAM DESCRIPTION: ACUTE ABDOMEN SERIES COMPLETED DATE/TIME: 11/15/2017 6:39 pm REASON FOR STUDY: Acute abdominal pain COMPARISON: 09/15/2017. NUMBER OF VIEWS: Three views. TECHNIQUE: Frontal chest, supine abdomen and upright/decubitus abdomen radiographic images acquired. LIMITATIONS: None. FINDINGS: CHEST: Lungs clear of infiltrates. FREE AIR: None. No abnormal gas collections. BOWEL GAS PATTERN: Nonobstructive pattern. Large amount of stool throughout. No dilated loops or ai r fluid levels. CALCIFICATIONS: No suspicious calcifications. HARDWARE: Surgical clips. SOFT TISSUES: No gross mass or suggestion of organomegaly. BONES: No acute fracture. No worrisome bone lesions. OTHER: No other significant finding. IMPRESSION: NO RADIOGRAPHIC EVIDENCE FOR ACUTE ABDOMINAL DISEASE. TECHNICAL DOCUMENTATION: JOB ID: [id number] [employer]- All Rights Reserved Reading location - IP/workstation name: [email or web address]
[2017-11-15 21:31] LABS: HEMATOCRIT 33.7 % (36.0-47.0); HEMOGLOBIN 10.6 g/dL (12.0-15.5); MEAN CORPUSCULAR HEMOGLOBIN 22.5 pg (27.0-33.4); MEAN CORPUSCULAR HGB CONC 31.5 g/dL (32.0-36.0); MEAN CORPUSCULAR VOLUME 71 fl (80-97); PLATELET COUNT 264 10^3/uL (150-450); RED BLOOD COUNT 4.72 10^6/uL (3.72-5.28); RED CELL DISTRIBUTION WIDTH 22.9 % (11.5-14.0); WHITE BLOOD COUNT 6.6 10^3/uL (4.0-10.5)
[2017-11-15 21:54] LABS: ABSOLUTE LYMPHOCYTES# (MANUAL) 1.6 10^3/uL (0.5-4.7); ABSOLUTE MONOCYTES # (MANUAL) 0.5 10^3/uL (0.1-1.4); ABSOLUTE NEUTROPHILS# (MANUAL) 4.6 10^3/uL (1.7-8.2); BASOPHILS % (MANUAL) 0 % (0-2); EOSINOPHILS % (MANUAL) 0 % (0-6); LYMPHOCYTES % (MANUAL) 24 % (13-45); MONOCYTES % (MANUAL) 7 % (3-13); POLYCHROMASIA 2+; SEGMENTED NEUTROPHILS % (MAN) 69 % (42-78); TOTAL CELLS COUNTED 100
[2017-11-15 21:55] LABS: ANISOCYTOSIS 3+; BURR CELLS SLIGHT; PLATELET COMMENT ADEQUATE; TARGET CELLS 1+; TEAR DROP CELLS SLIGHT
[2017-11-15 21:56] LABS: POIKILOCYTOSIS 1+
[2017-11-15 21:57] LABS: ALANINE AMINOTRANSFERASE 19 U/L (9-52); ALBUMIN 4.5 g/dL (3.5-5.0); ALKALINE PHOSPHATASE 104 U/L (38-126); ANION GAP 15 (5-19); ASPARTATE AMINO TRANSFERASE 25 U/L (14-36); BILIRUBIN,DIRECT 1.6 mg/dL (0.0-0.4); BILIRUBIN,TOTAL 2.4 mg/dL (0.2-1.3); BLOOD UREA NITROGEN 10 mg/dL (7-20); CALCIUM 9.7 mg/dL (8.4-10.2); CARBON DIOXIDE 24 mmol/L (22-30); CHLORIDE 103 mmol/L (98-107); CREATINE KINASE 83 U/L (30-135); GLUCOSE 161 mg/dL (75-110); LIPASE 96.4 U/L (23-300); POTASSIUM 3.2 mmol/L (3.6-5.0); SODIUM 141.9 mmol/L (137-145); TOTAL PROTEIN 8.8 g/dL (6.3-8.2)
[2017-11-15 22:05] LABS: CREATINE KINASE MB 1.44 ng/mL (<4.55)
[2017-11-15 22:11] LABS: TROPONIN I 0.045 ng/mL
--- NOTE | 2017-11-16 | ER Document Report ---
ED GI/ - General Chief Complaint: Abdominal Pain Stated Complaint: ABDOMINAL PAIN Time Seen by Provider: 11/15/17 17:56 Mode of Arrival: Ambulatory Information source: Patient TRAVEL OUTSIDE OF THE [place] IN LAST 30 DAYS: No - HPI Notes: 11/15/17 23:57 57-year-old female with history of chronic abdominal pain, prior [place], coronary artery bypass grafting last fall presents with persisting abdominal pain that is left-sided pushing up causing left-sided chest pain she reports. The pain is a pressure sensation. She states she has not had a bowel movement in 2 weeks. She has been using Ex-Lax, magnesium citrate without any improvement in her symptoms. She has had occasional vomiting. She denies passing any blood. Denies fever. No other alleviating or exacerbating symptoms. - Related Data Allergies/Adverse Reactions: haloperidol [From Haldol] Allergy (Verified 11/15/17 16:52) haloperidol lactate [From Haldol] Allergy (Verified 11/15/17 16:52) Past Medical History - General Information source: Patient - Social History Smoking Status: Current Every Day Smoker Chew tobacco use (# tins/day): No Frequency of alcohol use: None Drug Abuse: None Family History: Reviewed & Not Pertinent, CAD - Extensive heart disease in both parents and brother with brother dying from complications of cardiac stent placement Patient has suicidal ideation: No Patient has homicidal ideation: No - Past Medical History Cardiac Medical History: Reports: Hx Coronary Artery Disease, Hx Heart Attack - x2, Hx Hypercholesterolemia, Hx Hypertension Pulmonary Medical History: Reports: Hx Bronchitis, Hx COPD Neurological Medical History: Reports: Hx Cerebrovascular Accident Endocrine Medical History: Reports: Hx Diabetes Mellitus Type 2 Renal/ Medical History: Reports: Hx Kidney Stones. Denies: Hx Peritoneal Dialysis GI Medical History: Reports: Hx Gastroesophageal Reflux Disease Psychiatric Medical History: Reports: Hx Bipolar Disorder, Hx Depression, Hx Schizoaffective Disorder, Hx Schizophrenia Past Surgical History: Reports: Hx Cardiac Catheterization, Hx Cardiac Surgery - stents, CABG 09/2016, Hx Cholecystectomy, Hx Coronary Artery Bypass Graft - September 2016, Hx Coronary Stent - x2, Hx Thyroid Surgery, Hx Tonsillectomy, Hx Tubal Ligation, Hx Urinary Tract Surgery, Hx Vascular Surgery - Immunizations Hx Diphtheria, Pertussis, Tetanus Vaccination: Yes Hx Pneumococcal Vaccination: 11/29/16 Review of Systems - Review of Systems -: Yes All other systems reviewed and negative Physical Exam - Vital signs Vitals: Temp Pulse Resp BP Pulse Ox 97.6 F 86 16 121/73 98 11/15/17 17:15 11/15/17 17:15 11/15/17 17:15 11/15/17 17:15 11/15/17 17:15 - Notes Notes: GENERAL: VS as per nursing doc. Well-appearing, well-nourished and in no acute distress. HEAD: Atraumatic, normocephalic. EYES: Pupils equal round and reactive to light, extraocular movements intact, sclera anicteric, no conjunctival injection or discharge. ENT: Nares patent, oropharynx clear without exudates, moist mucous membranes. NECK: Normal range of motion, supple without lymphadenopathy. LUNGS: Breath sounds clear to auscultation bilaterally and equal. No wheezes rales or rhonchi. HEART: Regular rate and rhythm without murmurs. ABDOMEN: Soft, mild generalized left-sided abdominal tenderness, normoactive bowel sounds. No guarding, no rebound. No masses appreciated. No [place] sign. BACK: No CVA tenderness. EXTREMITIES: Normal range of motion, no calf tenderness, no edema. NEUROLOGICAL: Cranial nerves grossly intact. Normal speech. Normal sensory and motor exams. No gross cerebellar abnormalities. PSYCH: Normal mood, normal affect. SKIN: Warm, dry, normal turgor, no lesions noted. Course - Vital Signs Vital signs: Temp Pulse Resp BP Pulse Ox 97.6 F 86 16 121/73 98 11/15/17 17:15 11/15/17 17:15 11/15/17 17:15 11/15/17 17:15 11/15/17 17:15 - Laboratory Result Diagrams: 11/15/17 21:15 11/15/17 21:15 Laboratory results interpreted by me: 11/15/17 11/15/17 21:15 21:15 Hgb 10.6 L Hct 33.7 L MCV 71 L MCH 22.5 L MCHC 31.5 L RDW 22.9 H Potassium 3.2 L Est GFR ( Amer) 57 L Est GFR (Non-Af Amer) 47 L Glucose 161 H Total Bilirubin 2.4 H Direct Bilirubin 1.6 H Total Protein 8.8 H Discharge - Discharge Clinical Impression: Abdominal pain, generalized Disposition: AGAINST MEDICAL ADVICE Referrals: TREVON SKAGGS PA-C [Primary Care Provider] - Follow up as needed
[2017-11-16] MEDS ORDERED: NORMAL SALINE 1000 ML 500 ML IV ONE (00:01)
--- NOTE | 2017-11-16 15:31 | EKG REPORT ---
SEVERITY:- ABNORMAL ECG - SINUS RHYTHM INFERIOR INFARCT, AGE INDETERMINATE LATERAL INFARCT, AGE INDETERMINATE CONSIDER POSTERIOR WALL INVOLVEMENT PROLONGED QT INTERVAL : Confirmed by: Smita Luque MD 16-Nov-2017 15:30:13
== END 2017-11-16 01:17 | disposition left against medical advice (07) ==
LOC: ER 16:51
DX: R10.84 Generalized abdominal pain (principal); I25.2 Old myocardial infarction; Z95.1 Presence of aortocoronary bypass graft; F17.200 Nicotine dependence, unspecified, uncomplicated
CPT/HCPCS: 93005; 99284; 96372; 96361; 96374; 96375; 36415; 82553; 82550; 83690; 85025; 80053; 84484; 74022; 93010; J0500; J3010; J1885; J2405

== ENCOUNTER 2017-11-21 12:09 | Emergency (ER) | payer MEDICAID ==
--- NOTE | 2017-11-21 12:57 | ER Document Report ---
ED Medical Screen (RME) - General Chief Complaint: Suicidal Ideation Stated Complaint: BEHAVIORAL Time Seen by Provider: 11/21/17 12:54 Notes: Patient says she is here because she has a blockage in her bowel causing her to have abdominal pains across the upper portion of the abdomen. She has had some vomiting along with this pain. No change in bowel habits. Denies constipation. She says she has been dealing with this pain off and on for the past 6 months. She says she is now suicidal and just wants to . She wants to be admitted to a psychiatric facility at [facility]. History of cholecystectomy and tubal ligation. History of CABG. History of thyroidectomy. Patient appears to be depressed. She is tearful and crying throughout her triage evaluation. TRAVEL OUTSIDE OF THE U.S. IN LAST 30 DAYS: No - Related Data Allergies/Adverse Reactions: haloperidol [From Haldol] Allergy (Verified 11/21/17 12:46) haloperidol lactate [From Haldol] Allergy (Verified 11/21/17 12:46) Past Medical History - Social History Chew tobacco use (# tins/day): No Frequency of alcohol use: None Drug Abuse: None Family history: Reviewed & Not Pertinent - Past Medical History Cardiac Medical History: Reports: Hx Coronary Artery Disease, Hx Heart Attack - x2, Hx Hypercholesterolemia, Hx Hypertension Pulmonary Medical History: Reports: Hx Bronchitis, Hx COPD Neurological Medical History: Reports: Hx Cerebrovascular Accident Endocrine Medical History: Reports: Hx Diabetes Mellitus Type 2 Renal/ Medical History: Reports: Hx Kidney Stones. Denies: Hx Peritoneal Dialysis GI Medical History: Reports: Hx Gastroesophageal Reflux Disease Psychiatric Medical History: Reports: Hx Bipolar Disorder, Hx Depression, Hx Schizoaffective Disorder, Hx Schizophrenia Past Surgical History: Reports: Hx Cardiac Catheterization, Hx Cardiac Surgery - stents, CABG 09/2016, Hx Cholecystectomy, Hx Coronary Artery Bypass Graft - September 2016, Hx Coronary Stent - x2, Hx Thyroid Surgery, Hx Tonsillectomy, Hx Tubal Ligation, Hx Urinary Tract Surgery, Hx Vascular Surgery - Immunizations Hx Diphtheria, Pertussis, Tetanus Vaccination: Yes History of Influenza Vaccine for 11/2016 - 04/2017 Season: Yes Influenza Administration Date for 11/2016 - 04/2017 Season: 11/29/16 Physical Exam - Vital signs Vitals: Temp Pulse Resp BP Pulse Ox 98.9 F 98 20 191/112 H 98 11/21/17 12:29 11/21/17 12:29 11/21/17 12:29 11/21/17 12:29 11/21/17 12:29 Course - Vital Signs Vital signs: Temp Pulse Resp BP Pulse Ox 98.9 F 98 20 191/112 H 98 11/21/17 12:29 11/21/17 12:29 11/21/17 12:29 11/21/17 12:29 11/21/17 12:29 Doctor's Discharge - Discharge Referrals: TREVON SKAGGS PA-C [Primary Care Provider] - Follow up as needed
[2017-11-21 14:13] LABS: ALANINE AMINOTRANSFERASE 21 U/L (9-52); ALBUMIN 4.4 g/dL (3.5-5.0); ALKALINE PHOSPHATASE 103 U/L (38-126); ANION GAP 15 (5-19); ASPARTATE AMINO TRANSFERASE 25 U/L (14-36); BILIRUBIN,DIRECT 1.4 mg/dL (0.0-0.4); BILIRUBIN,TOTAL 2.3 mg/dL (0.2-1.3); BLOOD UREA NITROGEN 7 mg/dL (7-20); CALCIUM 10.2 mg/dL (8.4-10.2); CARBON DIOXIDE 26 mmol/L (22-30); CHLORIDE 105 mmol/L (98-107); GLUCOSE 91 mg/dL (75-110); HEMATOCRIT 35.8 % (36.0-47.0); HEMOGLOBIN 11.4 g/dL (12.0-15.5); MEAN CORPUSCULAR HEMOGLOBIN 22.6 pg (27.0-33.4); MEAN CORPUSCULAR HGB CONC 31.7 g/dL (32.0-36.0); MEAN CORPUSCULAR VOLUME 71 fl (80-97); PLATELET COUNT 298 10^3/uL (150-450); RED BLOOD COUNT 5.03 10^6/uL (3.72-5.28); RED CELL DISTRIBUTION WIDTH 23.6 % (11.5-14.0); SODIUM 145.5 mmol/L (137-145); TOTAL PROTEIN 8.6 g/dL (6.3-8.2)
[2017-11-21 14:14] LABS: ACETAMINOPHEN < 10 ug/mL (10-30); ALCOHOL < 10 mg/dL (NONE DETECTED); SALICYLATE < 1.0 mg/dL (2.0-20.0)
[2017-11-21 14:17] LABS: POTASSIUM 2.9 mmol/L (3.6-5.0)
[2017-11-21 14:49] LABS: ABSOLUTE LYMPHOCYTES# (MANUAL) 2.2 10^3/uL (0.5-4.7); ABSOLUTE MONOCYTES # (MANUAL) 0.3 10^3/uL (0.1-1.4); ABSOLUTE NEUTROPHILS# (MANUAL) 3.5 10^3/uL (1.7-8.2); BASOPHILS % (MANUAL) 0 % (0-2); EOSINOPHILS % (MANUAL) 0 % (0-6); LYMPHOCYTES % (MANUAL) 37 % (13-45); MONOCYTES % (MANUAL) 5 % (3-13); SEGMENTED NEUTROPHILS % (MAN) 58 % (42-78); TOTAL CELLS COUNTED 100
--- NOTE | 2017-11-21 14:49 | ER Document Report ---
ED General <NELSONDONI - Last Filed: 11/21/17 18:18> - General Mode of Arrival: Ambulatory Information source: Patient TRAVEL OUTSIDE OF THE [place] IN LAST 30 DAYS: No - HPI Onset: Last week Onset/Duration: Gradual Quality of pain: Dull Severity: Moderate Pain Level: 2 Associated symptoms: denies: Chest pain, Fever, Shortness of breath Exacerbated by: Denies Relieved by: Denies Similar symptoms previously: Yes Recently seen / treated by doctor: Yes <SAGE GARDNER - Last Filed: 11/22/17 00:21> - General Chief Complaint: Suicidal Ideation Stated Complaint: BEHAVIORAL Time Seen by Provider: 11/21/17 12:54 Notes: This is a 57-year-old female with a psychiatric history, hypertension, coronary artery disease who presents to the emergency room with abdominal pain for the past several months. Patient states she has been evaluated for this pain in the past. She denies any fever, chills, burning on urination. She has had her gallbladder out. She denies any blood in the stool. (SAGE GARDNER) - Related Data Allergies/Adverse Reactions: haloperidol [From Haldol] Allergy (Verified 11/21/17 12:46) haloperidol lactate [From Haldol] Allergy (Verified 11/21/17 12:46) Past Medical History - General Information source: Patient - Social History Smoking Status: Current Every Day Smoker Cigarette use (# per day): Yes - 1 pack per day Chew tobacco use (# tins/day): No Frequency of alcohol use: None Drug Abuse: None Lives with: Family Family History: Reviewed & Not Pertinent, CAD - Extensive heart disease in both parents and brother with brother dying from complications of cardiac stent placement Patient has suicidal ideation: Yes Patient has homicidal ideation: No - Past Medical History Cardiac Medical History: Reports: Hx Coronary Artery Disease, Hx Heart Attack - x2, Hx Hypercholesterolemia, Hx Hypertension Pulmonary Medical History: Reports: Hx Bronchitis, Hx COPD Neurological Medical History: Reports: Hx Cerebrovascular Accident Endocrine Medical History: Reports: Hx Diabetes Mellitus Type 2 Renal/ Medical History: Reports: Hx Kidney Stones. Denies: Hx Peritoneal Dialysis GI Medical History: Reports: Hx Gastroesophageal Reflux Disease Psychiatric Medical History: Reports: Hx Bipolar Disorder, Hx Depression, Hx Schizoaffective Disorder, Hx Schizophrenia Past Surgical History: Reports: Hx Cardiac Catheterization, Hx Cardiac Surgery - stents, CABG 09/2016, Hx Cholecystectomy, Hx Coronary Artery Bypass Graft - September 2016, Hx Coronary Stent - x2, Hx Thyroid Surgery, Hx Tonsillectomy, Hx Tubal Ligation, Hx Urinary Tract Surgery, Hx Vascular Surgery - Immunizations Hx Diphtheria, Pertussis, Tetanus Vaccination: Yes Hx Pneumococcal Vaccination: 11/29/16 <SAGE GARDNER - Last Filed: 11/22/17 00:21> Review of Systems - Review of Systems Constitutional: denies: Chills, Fever EENT: No symptoms reported Cardiovascular: No symptoms reported Respiratory: No symptoms reported Gastrointestinal: See HPI Genitourinary: No symptoms reported Female Genitourinary: No symptoms reported Musculoskeletal: No symptoms reported Skin: No symptoms reported Hematologic/Lymphatic: No symptoms reported Neurological/Psychological: See HPI <SAGE GARDNER - Last Filed: 11/22/17 00:21> Physical Exam <DONI NELSON - Last Filed: 11/21/17 18:18> <[email or web address] - Last Filed: 11/22/17 00:21> - Vital signs Vitals: Temp Pulse Resp BP Pulse Ox 98.9 F 98 20 191/112 H 98 11/21/17 12:29 11/21/17 12:29 11/21/17 12:29 11/21/17 12:29 11/21/17 12:29 Notes: Physical exam: GENERAL: 57-year-old female, alert and oriented 3, she is crying in the stretcher. Vision has pain writings on her left arm that says "take me to a psychiatric hospital". HEAD: Atraumatic, normocephalic. EYES: Pupils equal round and reactive to light, extraocular movements intact, sclera anicteric, conjunctiva are normal. ENT: TMs normal, nares patent, oropharynx clear without exudates. Moist mucous membranes. NECK: Normal range of motion, supple without obvious mass or JVD. LUNGS: Breath sounds clear to auscultation bilaterally and equal. No wheezes rales or rhonchi. HEART: Regular rate and rhythm without murmurs, rubs or gallops. ABDOMEN: Soft, normoactive bowel sounds. Mild tenderness to palpation. No guarding, no rebound. No masses appreciated. EXTREMITIES: Normal range of motion, no pitting or edema. No clubbing or cyanosis. NEUROLOGICAL: Cranial nerves II through XII grossly intact. Normal speech, moving all extremities. PSYCH: Normal mood, normal affect. SKIN: Warm, Dry, normal turgor, no rashes or lesions noted. (SAGE GARDNER) Course - Laboratory Result Diagrams: 11/21/17 13:06 11/21/17 13:06 <DONI NELSON - Last Filed: 11/21/17 18:18> - Laboratory Result Diagrams: 11/21/17 13:06 11/21/17 13:06 <SAGE GARDNER - Last Filed: 11/22/17 00:21> - Re-evaluation Re-evalutation: 11/21/17 18:08 Followed by community paramedics He was evaluated by the psychology/social work team. We will give her resources for assisted living. She denies HI/SI at this time. CT of the abdomen showed no acute intra-abdominal process. Patient has been walking around the ER without difficulty and does want to go out to smoke. She is in no acute distress. She was given some pain medicine because she had a fair amount of dye which extravasated into her arm tissues when her CT malfunctioned. I have advised her to apply cold compresses and to return for worsening pain/swelling or fever. (SAGE GARDNER) - Vital Signs Vital signs: Temp Pulse Resp BP Pulse Ox 98 F 88 16 156/92 H 98 11/21/17 18:40 11/21/17 18:40 11/21/17 18:40 11/21/17 18:40 11/21/17 18:40 - Laboratory Laboratory results interpreted by me: 11/21/17 11/21/17 13:06 13:06 Hgb 11.4 L Hct 35.8 L MCV 71 L MCH 22.6 L MCHC 31.7 L RDW 23.6 H Sodium 145.5 H Potassium 2.9 L* Est GFR ( Amer) 56 L Est GFR (Non-Af Amer) 46 L Total Bilirubin 2.3 H Direct Bilirubin 1.4 H Total Protein 8.6 H Salicylates < 1.0 L Acetaminophen < 10 L Discharge <DONI NELSON - Last Filed: 11/21/17 18:18> <SAGE GARDNER - Last Filed: 11/22/17 00:21> - Discharge Clinical Impression: Abdominal pain, Hypokalemia, Elevated blood pressure Disposition: HOME, SELF-CARE Additional Instructions: You were seen in the ED and evaluated by the Medical and Behavioral Health Teams for suicidal ideation and determined to be appropriate for discharge at this time. You were given a list of resources for Assisted Living in the local area and Grief Support with [facility]. Community Paramedics is also providing services to the patient. As we discussed, want you to put some ice on that arm. Take the oxycodone for pain. The pain medicine you're taking prescribed as a narcotic. There are several important things you should know about this medicine: 1. Taking narcotics for too long can lead to physical and mental dependence. Take this medicine only if really needed and in the lowest quantity to achieve pain relief. 2. Do not drink alcohol while on this medicine. Alcohol interacts with narcotics and the combination can be dangerous. 3. Do not drive or operate machinery while on this medicine. 4. Narcotics do cause constipation, so drink plenty of fluids and daily stool softeners. Take Zofran for nausea. Your potassium was low: Take the potassium tablets as prescribed. Additionally, you should have foods that are rich in potassium: [place] squash, baked potato, spinach, lentils, kidney beans, watermelon, raisins , yogurt, orange juice, banana, tomato juice. Return to the emergency room for worsening pain or any redness or swelling of the arm that is getting worse. Prescriptions: Oxycodone HCl 5 mg PO Q6HP PRN #25 tablet PRN Reason: Potassium Chloride 20 meq PO BID #28 capsule.er Forms: Elevated Blood Pressure Referrals: TREVON SKAGGS PA-C [Primary Care Provider] - Follow up in 3-5 days
[2017-11-21 14:50] LABS: ANISOCYTOSIS 3+; HYPOCHROMASIA 2+; OVALOCYTES 1+; POIKILOCYTOSIS 2+; POLYCHROMASIA SLIGHT
[2017-11-21 14:51] LABS: PLATELET CLUMPS PRESENT; PLATELET COMMENT ADEQUATE; TARGET CELLS SLIGHT; TEAR DROP CELLS 1+
[2017-11-21] MEDS ORDERED: DIPHENHYDRAMINE HCL 50 MG/ML VIAL IV ONE (15:18)
[2017-11-21] MEDS ORDERED: METOCLOPRAMIDE HCL INJ/PF 10 MG/2 ML SDV IV ONE (15:18)
[2017-11-21] MEDS ORDERED: NORMAL SALINE 1000 ML 1,000 ML IV ONE (15:18)
[2017-11-21] MEDS ORDERED: DIPHENHYDRAMINE HCL 25 MG CAPSULE ONE (16:38)
[2017-11-21] MEDS ORDERED: METOCLOPRAMIDE HCL 10 MG TABLET ONE (16:38)
--- NOTE | 2017-11-21 16:50 | RADIOLOGY REPORT (SQ) ---
EXAM DESCRIPTION: HUMERUS RIGHT COMPLETED DATE/TIME: 11/21/2017 4:40 pm REASON FOR STUDY: LOCATING BOLUS OF IV CONTRAST COMPARISON: None. NUMBER OF VIEWS: One view. TECHNIQUE: A single radiographic images were acquired of the right humerus to include elbow and shou lder in at least one projection. LIMITATIONS: None. FINDINGS: MINERALIZATION: Normal. BONES: No acute fracture or dislocation. No worrisome bone lesions. SOFT TISSUES: Large amount of radiopaque contrast in the soft tissues of the upper arm. OTHER: No other significant finding. IMPRESSION: LARGE AMOUNT OF RADIOPAQUE CONTRAST IN THE SOFT TISSUES OF THE UPPER ARM FOLLOWING CONTR AST EXTRAVASATION. TECHNICAL DOCUMENTATION: JOB ID: [id number] [employer]- All Rights Reserved Reading location - IP/workstation name: [email or web address]
--- NOTE | 2017-11-21 16:50 | RADIOLOGY REPORT (SQ) ---
EXAM DESCRIPTION: CT ABD/PELVIS WITH IV ONLY COMPLETED DATE/TIME: 11/21/2017 4:26 pm REASON FOR STUDY: abd pain COMPARISON: 12/12/2016 and 11/23/2016. TECHNIQUE: CT scan of the abdomen and pelvis performed using helical scanning technique with dynamic intravenous contrast injection. No oral contrast. Images reviewed with lung, soft tissue, and bone windows. Reconstructed coronal and sagittal MPR images reviewed. Delayed images for evaluation of the urinary system also acquired. All images stored on PACS. All CT scanners at this facility use dose modulation, iterative reconstruction, and/or weight based d osing when appropriate to reduce radiation dose to as low as reasonably achievable (ALARA). [facility]: Dose Right [facility]: CareDose [facility]: Dose Right [facility]: Teradose 4D [facility]: Quality Systems CONTRAST TYPE AND DOSE: contrast/concentration: Isovue 350.00 mg/ml; Total Contrast Delivered: 72.8 ml; Total Saline Delivered: 19.0 ml RENAL FUNCTION: BUN 9 creatinine 1.19. RADIATION DOSE: CT Rad equipment meets quality standard of care and radiation dose reduction techniq ues were employed. CTDIvol: 8.8 - 12.4 mGy. DLP: 1043 mGy-cm.. LIMITATIONS: There is contrast extravasation during injection. Very little vascular contrast noted on the images. FINDINGS: LOWER CHEST: No significant findings. No nodules or infiltrates. LIVER: Normal size. No masses. No dilated ducts. SPLEEN: Normal size. No focal lesions. PANCREAS: No masses. No significant calcifications. No adjacent inflammation or peripancreatic fluid collections. Pancreatic duct not dilated. GALLBLADDER: Surgically absent. ADRENAL GLANDS: No significant masses or asymmetry. RIGHT KIDNEY AND URETER: No solid masses. No significant calcifications. No hydronephrosis or hyd roureter. LEFT KIDNEY AND URETER: No solid masses. Tiny calyceal calculi. No hydronephrosis or hydroureter. AORTA AND VESSELS: No aneurysm. No dissection. Renal arteries, SMA, celiac without stenosis. RETROPERITONEUM: No retroperitoneal adenopathy, hemorrhage or masses. BOWEL AND PERITONEAL CAVITY: No masses or inflammatory changes. Small amount of free fluid in the ri ght and left subphrenic space. APPENDIX: Not visualized. PELVIS: No mass. Calcified uterine fibroid. Free fluid in the deep and pelvis. Normal bladder. ABDOMINAL WALL: No masses. No hernias. BONES: No significant or acute findings. OTHER: No other significant finding. IMPRESSION: 1. SMALL NONOBSTRUCTING CALYCEAL CALCULI IN THE LEFT KIDNEY. 2. SMALL AMOUNT OF FREE FLUID IN THE ABDOMEN AND PELVIS. SIMILAR FINDING WAS PRESENT ON PRIOR STUDIE S WELL. 3. NO OTHER SIGNIFICANT OR ACUTE FINDING IN THE ABDOMEN OR PELVIS ON CT SCAN WITH IV CONTRAST. TECHNICAL DOCUMENTATION: JOB ID: [id number] Quality ID # [id number]: Final reports with documentation of one or more dose reduction techniques (e.g., Au tomated exposure control, adjustment of the mA and/or kV according to patient size, use of iterative reconstruction technique) 2010 [employer]- All Rights Reserved Reading location - IP/workstation name: [email or web address]
[2017-11-21] MEDS ORDERED: ONDANSETRON 4 MG TAB.RAPDIS ONE (17:07)
[2017-11-21] MEDS ORDERED: ONDANSETRON 4 MG TAB.RAPDIS PO ONE (17:09)
[2017-11-21] MEDS ORDERED: HYDROMORPHONE HCL INJ/PF 2 MG/ML AMPULE IM ONE (17:22)
[2017-11-21] MEDS ORDERED: ONDANSETRON ODT 4 MG TAB (6 TAB/ER DISP) PO PRN (18:14)
[2017-11-21 18:43] VITALS: BP 156/92
== END 2017-11-21 18:40 | disposition home or self-care (01) ==
LOC: ER 12:09
DX: R10.9 Unspecified abdominal pain (principal); E87.6 Hypokalemia; I10 Essential (primary) hypertension; R45.851 Suicidal ideations; I25.10 Atherosclerotic heart disease of native coronary artery without angina pectoris; I25.2 Old myocardial infarction; E11.9 Type 2 diabetes mellitus without complications; J44.9 Chronic obstructive pulmonary disease, unspecified; F17.210 Nicotine dependence, cigarettes, uncomplicated; Z87.442 Personal history of urinary calculi; Z87.19 Personal history of other diseases of the digestive system; Z90.49 Acquired absence of other specified parts of digestive tract; Z88.8 Allergy status to other drugs, medicaments and biological substances; Z95.5 Presence of coronary angioplasty implant and graft; Z95.1 Presence of aortocoronary bypass graft
CPT/HCPCS: 99285; 96374; 36415; 80307 ×3; 85025; 80053; 73060; 74177; J3490 ×2; S0119; J1170; J1200; J2765

== ENCOUNTER 2017-11-26 11:03 | Emergency (ER) | payer MEDICAID ==
[2017-11-26 11:21] VITALS: BP 205/120
[2017-11-26] MEDS ORDERED: ASPIRIN 81 MG TABLET, CHEWABLE PO ONE (11:26)
--- NOTE | 2017-11-26 11:27 | ER Document Report ---
ED Medical Screen (RME) - General Chief Complaint: Chest Pain Stated Complaint: CHEST PAIN Time Seen by Provider: 11/26/17 11:25 Notes: 57 years old female discharged from the hospital couple of days ago presents today with chest pain took nitroglycerin subsequently had nausea and vomiting. And also complaint of left lower quadrant abdominal pain. No fever chills or other constitutional symptoms. She is on oxycodone Examination-appears drowsy, lungs sounded clear cardiovascular system S1-S2 positive murmur. Left lower quadrant abdominal pain. TRAVEL OUTSIDE OF THE [place] IN LAST 30 DAYS: No - Related Data Allergies/Adverse Reactions: haloperidol [From Haldol] Allergy (Verified 11/21/17 12:46) haloperidol lactate [From Haldol] Allergy (Verified 11/21/17 12:46) Past Medical History - Social History Family history: Reviewed & Not Pertinent - Past Medical History Cardiac Medical History: Reports: Hx Coronary Artery Disease, Hx Heart Attack - x2, Hx Hypercholesterolemia, Hx Hypertension Pulmonary Medical History: Reports: Hx Bronchitis, Hx COPD Neurological Medical History: Reports: Hx Cerebrovascular Accident Endocrine Medical History: Reports: Hx Diabetes Mellitus Type 2 Renal/ Medical History: Reports: Hx Kidney Stones. Denies: Hx Peritoneal Dialysis GI Medical History: Reports: Hx Gastroesophageal Reflux Disease Psychiatric Medical History: Reports: Hx Bipolar Disorder, Hx Depression, Hx Schizoaffective Disorder, Hx Schizophrenia Past Surgical History: Reports: Hx Cardiac Catheterization, Hx Cardiac Surgery - stents, CABG 09/2016, Hx Cholecystectomy, Hx Coronary Artery Bypass Graft - September 2016, Hx Coronary Stent - x2, Hx Thyroid Surgery, Hx Tonsillectomy, Hx Tubal Ligation, Hx Urinary Tract Surgery, Hx Vascular Surgery - Immunizations Hx Diphtheria, Pertussis, Tetanus Vaccination: Yes History of Influenza Vaccine for 11/2016 - 04/2017 Season: Yes Influenza Administration Date for 11/2016 - 04/2017 Season: 11/29/16 Physical Exam - Vital signs Vitals: Temp Pulse Resp BP Pulse Ox 98.7 F 114 H 18 205/120 H 97 11/26/17 11:18 11/26/17 11:18 11/26/17 11:18 11/26/17 11:18 11/26/17 11:18 Course - Vital Signs Vital signs: Temp Pulse Resp BP Pulse Ox 98.7 F 114 H 18 205/120 H 97 11/26/17 11:18 11/26/17 11:18 11/26/17 11:18 11/26/17 11:18 11/26/17 11:18 Doctor's Discharge - Discharge Referrals: TREVON SKAGGS PA-C [Primary Care Provider] - Follow up as needed
--- NOTE | 2017-11-26 12:02 | RADIOLOGY REPORT (SQ) ---
EXAM DESCRIPTION: CHEST SINGLE VIEW COMPLETED DATE/TIME: 11/26/2017 11:55 am REASON FOR STUDY: Chest pain COMPARISON: 09/04/2017 EXAM PARAMETERS: NUMBER OF VIEWS: One view. TECHNIQUE: Single frontal radiographic view of the chest acquired. RADIATION DOSE: NA LIMITATIONS: None. FINDINGS: LUNGS AND PLEURA: No opacities, masses or pneumothorax. No pleural effusion. MEDIASTINUM AND HILAR STRUCTURES: No masses. Contour normal. HEART AND VASCULAR STRUCTURES: Heart normal in size. Normal vasculature. BONES: No acute findings. HARDWARE: Sternotomy wires. OTHER: No other significant finding. IMPRESSION: NO ACUTE RADIOGRAPHIC FINDING IN THE CHEST. TECHNICAL DOCUMENTATION: JOB ID: [id number] [employer]- All Rights Reserved Reading location - IP/workstation name: [email or web address]
--- NOTE | 2017-11-26 12:03 | RADIOLOGY REPORT (SQ) ---
EXAM DESCRIPTION: KUB/ABDOMEN (SINGLE VIEW) COMPLETED DATE/TIME: 11/26/2017 11:55 am REASON FOR STUDY: Abdominal pain COMPARISON: None. NUMBER OF VIEWS: One view. TECHNIQUE: Supine radiographic image of the abdomen acquired. LIMITATIONS: None. FINDINGS: BOWEL GAS PATTERN: Normal bowel gas pattern. No dilated loops. CALCIFICATIONS: No suspicious calcifications. SOFT TISSUES: No gross mass or suggestion of organomegaly. HARDWARE: None in the abdomen. BONES: No acute fracture. No worrisome bone lesions. OTHER: No other significant finding. IMPRESSION: NO RADIOGRAPHIC EVIDENCE FOR ACUTE ABDOMINAL DISEASE. TECHNICAL DOCUMENTATION: JOB ID: [id number] [employer]- All Rights Reserved Reading location - IP/workstation name: [email or web address]
--- NOTE | 2017-11-26 12:13 | ER Document Report ---
ED General - General Chief Complaint: Chest Pain Stated Complaint: CHEST PAIN Time Seen by Provider: 11/26/17 11:25 Notes: 57-year-old female presents emergency department with complaints of chest pain and abdominal pain that started today. Patient is having associated nausea and vomiting. Patient has been unable to keep down any of her medications. Patient describes her chest pain as a sharp stabbing sensation located in the center of the chest. Patient states that this radiates down into her abdomen. Patient complains of diffuse abdominal tenderness. She denies any radiation of the pain. She denies any alleviating or exacerbating factors. TRAVEL OUTSIDE OF THE [place] IN LAST 30 DAYS: No - Related Data Allergies/Adverse Reactions: haloperidol [From Haldol] Allergy (Verified 11/21/17 12:46) haloperidol lactate [From Haldol] Allergy (Verified 11/21/17 12:46) Past Medical History - Social History Smoking Status: Current Every Day Smoker Frequency of alcohol use: None Drug Abuse: None Family History: Reviewed & Not Pertinent, CAD - Extensive heart disease in both parents and brother with brother dying from complications of cardiac stent placement Patient has suicidal ideation: No Patient has homicidal ideation: No - Past Medical History Cardiac Medical History: Reports: Hx Coronary Artery Disease, Hx Heart Attack - x2, Hx Hypercholesterolemia, Hx Hypertension Pulmonary Medical History: Reports: Hx Bronchitis, Hx COPD Neurological Medical History: Reports: Hx Cerebrovascular Accident Endocrine Medical History: Reports: Hx Diabetes Mellitus Type 2 Renal/ Medical History: Reports: Hx Kidney Stones. Denies: Hx Peritoneal Dialysis GI Medical History: Reports: Hx Gastroesophageal Reflux Disease Psychiatric Medical History: Reports: Hx Bipolar Disorder, Hx Depression, Hx Schizoaffective Disorder, Hx Schizophrenia Past Surgical History: Reports: Hx Cardiac Catheterization, Hx Cardiac Surgery - stents, CABG 09/2016, Hx Cholecystectomy, Hx Coronary Artery Bypass Graft - September 2016, Hx Coronary Stent - x2, Hx Thyroid Surgery, Hx Tonsillectomy, Hx Tubal Ligation, Hx Urinary Tract Surgery, Hx Vascular Surgery - Immunizations Hx Diphtheria, Pertussis, Tetanus Vaccination: Yes Hx Pneumococcal Vaccination: 11/29/16 Physical Exam - Vital signs Vitals: Temp Pulse Resp BP Pulse Ox 98.7 F 114 H 18 205/120 H 97 11/26/17 11:18 11/26/17 11:18 11/26/17 11:18 11/26/17 11:18 11/26/17 11:18 Course - Re-evaluation Re-evalutation: 11/26/17 12:13 EKG: Ventricular rate 108, NJ interval 141, QRS duration 94, QTc 392, sinus tachycardia, no ischemic changes. 11/26/17 13:15 Patient leaving AMA. She is competent to make medical decisions. She understands she may or her condition may worsen by leaving AMA. - Vital Signs Vital signs: Temp Pulse Resp BP Pulse Ox 98.7 F 114 H 18 205/120 H 98 11/26/17 11:18 11/26/17 11:18 11/26/17 11:18 11/26/17 11:18 11/26/17 11:26 - Laboratory Result Diagrams: 11/26/17 11:45 11/26/17 11:45 Laboratory results interpreted by me: 11/26/17 11/26/17 11:45 11:45 Hgb 11.6 L MCV 72 L MCH 22.8 L MCHC 31.9 L RDW 24.5 H D-Dimer 1.39 H Discharge - Discharge Clinical Impression: Chest pain Qualifiers: Chest pain type: unspecified Qualified Code(s): R07.9 - Chest pain, unspecified Abdominal pain Qualifiers: Abdominal location: unspecified location Qualified Code(s): R10.9 - Unspecified abdominal pain Condition: Serious Disposition: AGAINST MEDICAL ADVICE Referrals: TREVON SKAGGS PA-C [Primary Care Provider] - Follow up as needed
[2017-11-26] MEDS ORDERED: ONDANSETRON 4 MG TAB.RAPDIS PO ONE (12:24)
[2017-11-26 12:45] LABS: HEMATOCRIT 36.4 % (36.0-47.0); HEMOGLOBIN 11.6 g/dL (12.0-15.5); MEAN CORPUSCULAR HEMOGLOBIN 22.8 pg (27.0-33.4); MEAN CORPUSCULAR HGB CONC 31.9 g/dL (32.0-36.0); MEAN CORPUSCULAR VOLUME 72 fl (80-97); PLATELET COUNT 268 10^3/uL (150-450); RED BLOOD COUNT 5.09 10^6/uL (3.72-5.28); RED CELL DISTRIBUTION WIDTH 24.5 % (11.5-14.0); WHITE BLOOD COUNT 6.4 10^3/uL (4.0-10.5)
[2017-11-26 13:18] LABS: ABSOLUTE LYMPHOCYTES# (MANUAL) 1.3 10^3/uL (0.5-4.7); ABSOLUTE NEUTROPHILS# (MANUAL) 3.9 10^3/uL (1.7-8.2); ANISOCYTOSIS 3+; BASOPHILS % (MANUAL) 1 % (0-2); EOSINOPHILS % (MANUAL) 2 % (0-6); HYPOCHROMASIA 2+; LYMPHOCYTES % (MANUAL) 21 % (13-45); MONOCYTES % (MANUAL) 15 % (3-13); ROULEAUX 1+; SEGMENTED NEUTROPHILS % (MAN) 61 % (42-78); TOTAL CELLS COUNTED 100
[2017-11-26 13:19] LABS: OVALOCYTES 1+; PLATELET COMMENT ADEQUATE; POIKILOCYTOSIS 1+; SCHISTOCYTES SLIGHT; TARGET CELLS 1+; TOXIC VACUOLATION PRESENT
--- NOTE | 2017-11-26 21:02 | EKG REPORT ---
SEVERITY:- ABNORMAL ECG - SINUS TACHYCARDIA INFERIOR INFARCT, AGE INDETERMINATE ANTEROLATERAL INFARCT, AGE INDETERMINATE : Confirmed by: Smita Luque MD 26-Nov-2017 21:02:25
== END 2017-11-26 13:12 | disposition left against medical advice (07) ==
LOC: ER 11:03
DX: R07.9 Chest pain, unspecified (principal); R10.9 Unspecified abdominal pain; F17.200 Nicotine dependence, unspecified, uncomplicated; I25.10 Atherosclerotic heart disease of native coronary artery without angina pectoris; E78.00 Pure hypercholesterolemia, unspecified; I10 Essential (primary) hypertension; I25.2 Old myocardial infarction; Z87.442 Personal history of urinary calculi; Z86.73 Personal history of transient ischemic attack (TIA), and cerebral infarction without residual deficits; Z95.1 Presence of aortocoronary bypass graft
CPT/HCPCS: 93005; 99285; 36415; 85025; 85379; 71045; 74018; 93010; S0119

== ENCOUNTER 2018-01-02 11:56 | Emergency (ER) | payer MEDICAID ==
--- NOTE | 2018-01-02 14:27 | ER Document Report ---
ED Medical Screen (RME) - General Chief Complaint: Abdominal Pain Stated Complaint: ABDOMINAL PAIN Time Seen by Provider: 01/02/18 14:23 Mode of Arrival: Ambulatory Information source: Patient Notes: This is a 57-year-old female with a history of coronary artery disease, diabetes , hypertension, gastritis. Patient presents to the emergency room with epigastric discomfort having run out of her "stomach medicine". Patient also reports having increased constipation. Patient denies any vomiting, fever. She is comfortable in triage at this time. She is smiling and in no discomfort. TRAVEL OUTSIDE OF THE [place] IN LAST 30 DAYS: No - HPI Onset: Last week Onset/Duration: Gradual Quality of pain: Burning Severity: None Pain Level: Denies Associated Symptoms: denies: Chest pain, Shortness of breath Exacerbated by: Denies Relieved by: Denies Similar symptoms previously: Yes Recently seen / treated by doctor: Yes - Related Data Smoking: Non-smoker Frequency of alcohol use: None Drug Abuse: None Allergies/Adverse Reactions: haloperidol [From Haldol] Allergy (Verified 11/21/17 12:46) haloperidol lactate [From Haldol] Allergy (Verified 11/21/17 12:46) Past Medical History - General Information source: Patient - Social History Cigarette use (# per day): No Chew tobacco use (# tins/day): No Frequency of alcohol use: None Drug Abuse: None Lives with: Family Family history: Reviewed & Not Pertinent - Past Medical History Cardiac Medical History: Reports: Hx Coronary Artery Disease, Hx Heart Attack - x2, Hx Hypercholesterolemia, Hx Hypertension Pulmonary Medical History: Reports: Hx Bronchitis, Hx COPD Neurological Medical History: Reports: Hx Cerebrovascular Accident Endocrine Medical History: Reports: Hx Diabetes Mellitus Type 2 Renal/ Medical History: Reports: Hx Kidney Stones. Denies: Hx Peritoneal Dialysis GI Medical History: Reports: Hx Gastroesophageal Reflux Disease Psychiatric Medical History: Reports: Hx Bipolar Disorder, Hx Depression, Hx Schizoaffective Disorder, Hx Schizophrenia Past Surgical History: Reports: Hx Cardiac Catheterization, Hx Cardiac Surgery - stents, CABG 09/2016, Hx Cholecystectomy, Hx Coronary Artery Bypass Graft - September 2016, Hx Coronary Stent - x2, Hx Thyroid Surgery, Hx Tonsillectomy, Hx Tubal Ligation, Hx Urinary Tract Surgery, Hx Vascular Surgery - Immunizations Hx Diphtheria, Pertussis, Tetanus Vaccination: Yes History of Influenza Vaccine for 11/2016 - 04/2017 Season: Yes Influenza Administration Date for 11/2016 - 04/2017 Season: 11/29/16 Review of Systems - Review of Systems Constitutional: denies: Chills, Fever EENT: No symptoms reported Cardiovascular: No symptoms reported. denies: Chest pain, Palpitations, Heart racing Respiratory: No symptoms reported Gastrointestinal: See HPI Genitourinary: No symptoms reported Female Genitourinary: No symptoms reported Musculoskeletal: No symptoms reported Skin: No symptoms reported Hematologic/Lymphatic: No symptoms reported Neurological/Psychological: No symptoms reported Physical Exam - Vital signs Vitals: Temp Pulse Resp BP Pulse Ox 97.8 F 70 16 139/71 H 100 01/02/18 12:08 01/02/18 12:08 01/02/18 12:08 01/02/18 12:08 01/02/18 12:08 Notes: Physical exam: GENERAL: Well-appearing female, alert and oriented x3, no distress. Ambulating around. HEAD: Atraumatic, normocephalic. EYES: Pupils equal round and reactive to light, extraocular movements intact, sclera anicteric, conjunctiva are normal. ENT: TMs normal, nares patent, oropharynx clear without exudates. Moist mucous membranes. NECK: Normal range of motion, supple without obvious mass or JVD. LUNGS: Breath sounds clear to auscultation bilaterally and equal. No wheezes rales or rhonchi. HEART: Regular rate and rhythm without murmurs, rubs or gallops. ABDOMEN: Soft, normoactive bowel sounds. No tenderness to palpation. No guarding, no rebound. No masses appreciated. EXTREMITIES: Normal range of motion, no pitting or edema. No clubbing or cyanosis. NEUROLOGICAL: Cranial nerves II through XII grossly intact. Normal speech, moving all extremities. PSYCH: Normal mood, normal affect. SKIN: Warm, Dry, normal turgor, no rashes or lesions noted. Course - Vital Signs Vital signs: Temp Pulse Resp BP Pulse Ox 97.6 F 76 16 183/104 H 99 01/02/18 14:30 01/02/18 14:31 01/02/18 12:08 01/02/18 14:31 01/02/18 14:31 Doctor's Discharge - Discharge Clinical Impression: Gastritis, Constipation Condition: Stable Disposition: HOME, SELF-CARE Additional Instructions: Recommendations: Continue current medicines. Take Protonix for your stomach. Take the MiraLAX for constipation. Follow-up with Trevon holman. I think it is a good idea if you follow-up with a GI doctor: I put his number on the chart. Return to the emergency room for worsening pain, constipation or any concerns or getting worse. Prescriptions: Pantoprazole Sodium [Protonix] 20 mg PO DAILY #30 tablet. Polyethylene Glycol 3350 [Miralax Powder 17 gm/Packet] 1 packet PO BID #14 pkg Referrals: PAYAL THORNE MD [ACTIVE STAFF] - Follow up as needed (This is the number the GI doctor. Tomorrow for the next available appointment.) TREVON HOLMAN PA-C [Primary Care Provider] - Follow up in 3-5 days
[2018-01-02 14:38] VITALS: BP 183/104
== END 2018-01-02 14:40 | disposition home or self-care (01) ==
LOC: ER 11:56
DX: K29.70 Gastritis, unspecified, without bleeding (principal); K59.00 Constipation, unspecified; R10.9 Unspecified abdominal pain; I25.10 Atherosclerotic heart disease of native coronary artery without angina pectoris; E78.00 Pure hypercholesterolemia, unspecified; I10 Essential (primary) hypertension; E11.9 Type 2 diabetes mellitus without complications; I25.2 Old myocardial infarction; Z86.73 Personal history of transient ischemic attack (TIA), and cerebral infarction without residual deficits; Z87.442 Personal history of urinary calculi; Z95.1 Presence of aortocoronary bypass graft; Z90.49 Acquired absence of other specified parts of digestive tract
CPT/HCPCS: 99284

== ENCOUNTER 2018-02-15 09:53 | Emergency (ER) | payer MEDICAID ==
[2018-02-15] MEDS ORDERED: ONDANSETRON HCL INJ/PF 4 MG/2 ML SDV IV ONE (10:54)
--- NOTE | 2018-02-15 10:57 | ER Document Report ---
ED Medical Screen (RME) - General Chief Complaint: Abdominal Pain Stated Complaint: ABDOMINAL PAIN,COUGH Time Seen by Provider: 02/15/18 10:41 Mode of Arrival: Ambulatory Information source: Patient, [facility] Records Notes: 57-year-old female with hypothyroidism, gastroparesis, coronary artery disease ( CABG), peripheral vascular disease, chronic kidney disease, bipolar, schizophrenia, hypertension presents with 2 weeks of nausea, vomiting and generalized abdominal pain. Patient also is concerned that she may be . Patient does have a history of cholecystectomy. I have greeted and performed a rapid initial assessment of this patient. A comprehensive ED assessment and evaluation of the patient, analysis of test results and completion of medical decision making process we will be contacted by additional ED providers. PHYSICAL EXAMINATION: Vital signs reviewed-hypertensive, afebrile GENERAL: Ill-appearing but not toxic or dehydrated LUNGS: No respiratory distress Musculoskeletal: Normal range of motion NEUROLOGICAL: Normal speech, alert and oriented x3 PSYCH: Normal mood, normal affect. SKIN: Warm, Dry, normal turgor, no rashes or lesions noted. TRAVEL OUTSIDE OF THE [place] IN LAST 30 DAYS: No - HPI Onset: Other Onset/Duration: Persistent Quality of pain: Sharp Severity: Moderate Associated Symptoms: Abdominal pain, Chest pain - Chronic chest pain for years. , Nausea, Vomiting Exacerbated by: Supine Relieved by: Other - Walking Similar symptoms previously: Yes Recently seen / treated by doctor: Yes - Related Data Smoking: Non-smoker Frequency of alcohol use: None Drug Abuse: None Allergies/Adverse Reactions: haloperidol [From Haldol] Allergy (Verified 02/15/18 10:29) haloperidol lactate [From Haldol] Allergy (Verified 02/15/18 10:29) Past Medical History - Social History Chew tobacco use (# tins/day): No Frequency of alcohol use: None Drug Abuse: None Family history: Reviewed & Not Pertinent - Past Medical History Cardiac Medical History: Reports: Hx Coronary Artery Disease, Hx Heart Attack - x2, Hx Hypercholesterolemia, Hx Hypertension Pulmonary Medical History: Reports: Hx Bronchitis, Hx COPD Neurological Medical History: Reports: Hx Cerebrovascular Accident Endocrine Medical History: Reports: Hx Diabetes Mellitus Type 2 Renal/ Medical History: Reports: Hx Kidney Stones. Denies: Hx Peritoneal Dialysis GI Medical History: Reports: Hx Gastroesophageal Reflux Disease Psychiatric Medical History: Reports: Hx Bipolar Disorder, Hx Depression, Hx Schizoaffective Disorder, Hx Schizophrenia Past Surgical History: Reports: Hx Cardiac Catheterization, Hx Cardiac Surgery - stents, CABG 09/2016, Hx Cholecystectomy, Hx Coronary Artery Bypass Graft - September 2016, Hx Coronary Stent - x2, Hx Open Heart Surgery, Hx Thyroid Surgery, Hx Tonsillectomy, Hx Tubal Ligation, Hx Urinary Tract Surgery, Hx Vascular Surgery - Immunizations Hx Diphtheria, Pertussis, Tetanus Vaccination: Yes History of Influenza Vaccine for 11/2016 - 04/2017 Season: Yes Influenza Administration Date for 11/2016 - 04/2017 Season: 11/29/16 Physical Exam - Vital signs Vitals: Temp Pulse Resp BP Pulse Ox 97.9 F 92 20 160/100 H 100 02/15/18 09:58 02/15/18 09:58 02/15/18 09:58 02/15/18 09:58 02/15/18 09:58 Course - Vital Signs Vital signs: Temp Pulse Resp BP Pulse Ox 97.9 F 92 20 160/100 H 100 02/15/18 09:58 02/15/18 09:58 02/15/18 09:58 02/15/18 09:58 02/15/18 09:58 Doctor's Discharge - Discharge Referrals: TREVON SKAGGS PA-C [Primary Care Provider] - Follow up as needed
--- NOTE | 2018-02-15 11:32 | ER Document Report ---
ED General - General Chief Complaint: Abdominal Pain Stated Complaint: ABDOMINAL PAIN,COUGH Time Seen by Provider: 02/15/18 10:41 Mode of Arrival: Ambulatory Notes: Patient is a 57-year-old female with history of hypertension, CAD and peptic ulcer disease that presents to the emergency department for chief complaint of abdominal pain and distention for approximately 1 week with associated nausea. Patient describes the pain she is having as a cramping diffusely across her abdomen, she states she has not had a bowel movement in 3 or 4 days, she has had associated nausea but no vomiting. Denies any urinary complaints such as dysuria or urinary frequency or hematuria. She rates her pain currently as a 2 out of 10, again described as an aching and cramping sensation throughout the abdomen. She denies noting any fevers, chills, night sweats, chest pain, shortness of breath, difficulty breathing, headaches, or diarrhea. She states that someone told her she is " with twins", and she believes them, although she has not had a menstrual period in over 14 years. Past Medical History: Peptic ulcer disease, CAD, hypertension, hyperlipidemia Past Surgical History: CABG, PCI with stenting, cholecystectomy Social History: Admits to smoking cigarettes daily, denies alcohol or illicit drug use. Family History: Reviewed and noncontributory for presenting illness Allergies: Reviewed, see documented allergy list. REVIEW OF SYSTEMS: Other than noted above, the 12 point review of systems was reviewed with the patient and were negative, all pertinent findings are included in the HPI. PHYSICAL EXAMINATION: Vital signs reviewed, nursing noted reviewed. GENERAL: Elderly female in no acute distress appearing HEAD: Atraumatic, normocephalic. EYES: Eyes appear normal, extraocular movements intact, sclera anicteric, conjunctiva are normal. ENT: nares patent, oropharynx clear without exudates. Moist mucous membranes. NECK: Normal range of motion, supple without lymphadenopathy LUNGS: Breath sounds clear to auscultation bilaterally and equal. No wheezes rales or rhonchi. HEART: Regular rate and rhythm without murmurs ABDOMEN: Soft, moderately distended, no focal tenderness with palpation, normoactive bowel sounds. No rebound, guarding, or rigidity. No masses appreciated. EXTREMITIES: Nontender, good range of motion, no pitting or edema. NEUROLOGICAL: No focal neurological deficits. Moves all extremities spontaneously Motor and sensory grossly intact on exam. PSYCH: Normal mood, normal affect. SKIN: Warm, Dry, normal turgor, no rashes or lesions noted on exposed skin TRAVEL OUTSIDE OF THE [place] IN LAST 30 DAYS: No - Related Data Allergies/Adverse Reactions: haloperidol [From Haldol] Allergy (Verified 02/15/18 10:29) haloperidol lactate [From Haldol] Allergy (Verified 02/15/18 10:29) Past Medical History - General Information source: [facility], [facility] Records - Social History Smoking Status: Current Every Day Smoker Chew tobacco use (# tins/day): No Frequency of alcohol use: None Drug Abuse: None Family History: Reviewed & Not Pertinent, CAD - Extensive heart disease in both parents and brother with brother dying from complications of cardiac stent placement Patient has suicidal ideation: No Patient has homicidal ideation: No - Past Medical History Cardiac Medical History: Reports: Hx Coronary Artery Disease, Hx Heart Attack - x2, Hx Hypercholesterolemia, Hx Hypertension Pulmonary Medical History: Reports: Hx Bronchitis, Hx COPD Neurological Medical History: Reports: Hx Cerebrovascular Accident Endocrine Medical History: Reports: Hx Diabetes Mellitus Type 2 Renal/ Medical History: Reports: Hx Kidney Stones. Denies: Hx Peritoneal Dialysis GI Medical History: Reports: Hx Gastroesophageal Reflux Disease Psychiatric Medical History: Reports: Hx Bipolar Disorder, Hx Depression, Hx Schizoaffective Disorder, Hx Schizophrenia Past Surgical History: Reports: Hx Cardiac Catheterization, Hx Cardiac Surgery - stents, CABG 09/2016, Hx Cholecystectomy, Hx Coronary Artery Bypass Graft - September 2016, Hx Coronary Stent - x2, Hx Open Heart Surgery, Hx Thyroid Surgery, Hx Tonsillectomy, Hx Tubal Ligation, Hx Urinary Tract Surgery, Hx Vascular Surgery - Immunizations Hx Diphtheria, Pertussis, Tetanus Vaccination: Yes Hx Pneumococcal Vaccination: 11/29/16 Physical Exam - Vital signs Vitals: Temp Pulse Resp BP Pulse Ox 97.9 F 92 20 160/100 H 100 02/15/18 09:58 02/15/18 09:58 02/15/18 09:58 02/15/18 09:58 02/15/18 09:58 Course - Re-evaluation Re-evalutation: Patient seen and examined vital signs reviewed. Laboratory data and imaging were ordered as appropriate for the patient's presenting symptoms and complaint, with consideration of any critical or life threatening conditions that may be associated with their obtained history and exam as noted above. Patient was treated with IV fluid, Zofran initially Results were reviewed when available and demonstrated hypokalemia, patient given potassium replacement p.o., she was also noted to have a UTI with nitrites positive, on the urine testing, was given one-time dose of Rocephin for this, will discharge her home on antibiotics, with Keflex for 7 days, she was noted to have hyperbilirubinemia, upon chart review, patient had this in the past, and is near her baseline from prior lab results, in October of this year she had a CT imaging for this particular reason, was unremarkable no acute findings at that time, patient is status post cholecystectomy. The patient was re-evaluated and was stable Evaluation was most consistent with abdominal pain, likely secondary to constipation, her KUB demonstrates significant stool burden, and gaseous distention of the colon, recommended using magnesium citrate, and MiraLAX to help move her bowels, which would help her overall symptoms of abdominal pain, and will treat her UTI as noted above. Results were discussed with the patient at this point, after careful consideration I feel that that patient can be discharged from the emergency department, the patient was educated treatments and reasons to return to the emergency department based on their presumed diagnosis as noted above, they were advised to followup with a primary care physician in 2-3 days. Patient was agreeable to plan of care. *Note is created using voice recognition software and may contain spelling, syntax or grammatical errors. Laboratory 02/15/18 02/15/18 02/15/18 11:29 11:29 11:29 WBC 9.1 RBC 4.86 Hgb 12.4 Hct 38.2 MCV 79 L MCH 25.5 L MCHC 32.4 RDW 22.1 H Plt Count 295 Seg Neutrophils % 58.2 Lymphocytes % 32.2 Monocytes % 9.0 Eosinophils % 0.1 Basophils % 0.5 Absolute Neutrophils 5.3 Absolute Lymphocytes 2.9 Absolute Monocytes 0.8 Absolute Eosinophils 0.0 Absolute Basophils 0.0 Sodium 144.1 Potassium 3.2 L Chloride 102 Carbon Dioxide 29 Anion Gap 13 BUN 9 Creatinine 0.99 Est GFR ( Amer) > 60 Est GFR (Non-Af Amer) 57 L Glucose 127 H Calcium 9.6 Total Bilirubin 2.4 H Direct Bilirubin 1.5 H Neonat Total Bilirubin Not Reportable Neonat Direct Bilirubin Not Reportable Neonat Indirect Bili Not Reportable AST 25 ALT 12 Alkaline Phosphatase 130 H Total Protein 8.2 Albumin 4.0 Lipase 76.1 Urine Color YELLOW Urine Appearance SLIGHTLY-CLOUDY Urine pH 7.0 Ur Specific [place] 1.009 Urine Protein 100 H Urine Glucose (UA) NEGATIVE Urine Ketones NEGATIVE Urine Blood NEGATIVE Urine Nitrite POSITIVE H Urine Bilirubin NEGATIVE Urine Urobilinogen NEGATIVE Ur Leukocyte Esterase MODERATE H Urine WBC (Auto) 55 Urine RBC (Auto) 26 U Hyaline Cast (Auto) 1 Urine Bacteria (Auto) 3+ Squamous Epi Cells Auto 14 Urine Mucus (Auto) RARE Urine Ascorbic Acid NEGATIVE KUB X-Ray 02/15/18 12:02 IMPRESSION: Large amount of stool in the descending and sigmoid colon. Gaseous distention of the transverse and ascending colon - Vital Signs Vital signs: Temp Pulse Resp BP Pulse Ox 97.9 F 92 20 160/100 H 100 02/15/18 09:58 02/15/18 09:58 02/15/18 09:58 02/15/18 09:58 02/15/18 09:58 - Laboratory Result Diagrams: 02/15/18 11:29 02/15/18 11:29 Laboratory results interpreted by me: 02/15/18 02/15/18 02/15/18 11:29 11:29 11:29 MCV 79 L MCH 25.5 L RDW 22.1 H Potassium 3.2 L Est GFR (Non-Af Amer) 57 L Glucose 127 H Total Bilirubin 2.4 H Direct Bilirubin 1.5 H Alkaline Phosphatase 130 H Urine Protein 100 H Urine Nitrite POSITIVE H Ur Leukocyte Esterase MODERATE H Discharge - Discharge Clinical Impression: Hypokalemia UTI (urinary tract infection) Qualifiers: Urinary tract infection type: site unspecified Hematuria presence: without hematuria Qualified Code(s): N39.0 - Urinary tract infection, site not specified Constipation Qualifiers: Constipation type: unspecified constipation type Qualified Code(s): K59.00 - Constipation, unspecified Abdominal pain Qualifiers: Abdominal location: unspecified location Qualified Code(s): R10.9 - Unspecified abdominal pain Condition: Stable Disposition: HOME, SELF-CARE Instructions: Abdominal Pain ([facility]), Constipation ([facility]), Urinary Tract Infection ([facility]) Additional Instructions: Please return to the emergency department if you have any worsening, or concern of your symptoms. Please return to the emergency department if you develop chest pain, difficulty breathing, severe abdominal pain, or ongoing vomiting. Please follow-up with your primary care physician in 2-3 days and any other recommended physicians. If prescribed, take all medications as directed. If you have any questions or concerns do not hesitate to return the emergency department for evaluation. Please take the MiraLAX daily for the next 2 weeks, you should also take the magnesium citrate bottle prescribed once to get home and pick it up from the pharmacy, you can take this again the following day if you do not have a significant bowel movement. Please take the prescribed antibiotics for your urinary tract infection, and please follow-up with your primary care physician. Prescriptions: Cephalexin Monohydrate [Keflex 500 mg Capsule] 500 mg PO Q8 5 Days #15 capsule Magnesium Citrate [Citrate of Magnesia 296 ml Bottle] 296 ml PO DAILY #2 bottle Polyethylene Glycol 3350 [Miralax] 17 gm PO DAILY #238 gm Referrals: TREVON SKAGGS PA-C [Primary Care Provider] - Follow up as needed
[2018-02-15 11:44] LABS: ABSOLUTE LYMPHOCYTES (AUTO) 2.9 10^3/uL (0.5-4.7); ABSOLUTE MONOCYTES (AUTO) 0.8 10^3/uL (0.1-1.4); ABSOLUTE NEUT (AUTO) 5.3 10^3/uL (1.7-8.2); BASOPHILS % (AUTO) 0.5 % (0-2); EOSINOPHILS % (AUTO) 0.1 % (0-6); HEMATOCRIT 38.2 % (36.0-47.0); HEMOGLOBIN 12.4 g/dL (12.0-15.5); LYMPHOCYTES % (AUTO) 32.2 % (13-45); MEAN CORPUSCULAR HEMOGLOBIN 25.5 pg (27.0-33.4); MEAN CORPUSCULAR HGB CONC 32.4 g/dL (32.0-36.0); MEAN CORPUSCULAR VOLUME 79 fl (80-97); PLATELET COUNT 295 10^3/uL (150-450); RED BLOOD COUNT 4.86 10^6/uL (3.72-5.28); RED CELL DISTRIBUTION WIDTH 22.1 % (11.5-14.0); SEGMENTED NEUTROPHILS % (AUTO) 58.2 % (42-78); TOTAL CELLS COUNTED % (AUTO) 100 %; WHITE BLOOD COUNT 9.1 10^3/uL (4.0-10.5)
[2018-02-15 11:53] LABS: APPEARANCE,URINE SLIGHTLY-CLOUDY; BILIRUBIN,URINE NEGATIVE (NEGATIVE); COLOR,URINE YELLOW; GLUCOSE, URINE NEGATIVE (NEGATIVE); KETONES,URINE NEGATIVE (NEGATIVE); LEUKOCYTE ESTERASE,URINE MODERATE (NEGATIVE); NITRITE,URINE POSITIVE (NEGATIVE); PROTEIN,URINE 100 mg/dL (NEGATIVE); URINE SPECIFIC GRAVITY 1.009; UROBILINOGEN,URINE NEGATIVE mg/dL (<2.0)
[2018-02-15] MEDS ORDERED: CEFTRIAXONE INJ 1000 MG VIAL IV ONE (12:02)
[2018-02-15 12:11] LABS: ALANINE AMINOTRANSFERASE 12 U/L (9-52); ALKALINE PHOSPHATASE 130 U/L (38-126); ANION GAP 13 (5-19); ASPARTATE AMINO TRANSFERASE 25 U/L (14-36); BILIRUBIN,DIRECT 1.5 mg/dL (0.0-0.4); BILIRUBIN,TOTAL 2.4 mg/dL (0.2-1.3); BLOOD UREA NITROGEN 9 mg/dL (7-20); CALCIUM 9.6 mg/dL (8.4-10.2); CARBON DIOXIDE 29 mmol/L (22-30); CHLORIDE 102 mmol/L (98-107); GLUCOSE 127 mg/dL (75-110); LIPASE 76.1 U/L (23-300); POTASSIUM 3.2 mmol/L (3.6-5.0); SODIUM 144.1 mmol/L (137-145); TOTAL PROTEIN 8.2 g/dL (6.3-8.2)
--- NOTE | 2018-02-15 12:30 | RADIOLOGY REPORT (SQ) ---
EXAM DESCRIPTION: KUB/ABDOMEN (SINGLE VIEW) COMPLETED DATE/TIME: 02/15/2018 12:14 pm REASON FOR STUDY: abdominal pain, distention COMPARISON: KUB 11/26/2017, 11/15/2017, 09/15/2017 NUMBER OF VIEWS: One view. TECHNIQUE: Supine radiographic image of the abdomen acquired. LIMITATIONS: None. FINDINGS: BOWEL GAS PATTERN: LARGE AMOUNT OF STOOL IN THE DESCENDING COLON AND RECTOSIGMOID WITH GAS EOUS DISTENTION OF THE TRANSVERSE COLON AND ASCENDING COLON. No dilated small bowel loops worrisome for small bowel obstruction. Stomach decompressed. CALCIFICATIONS: Calcified pelvic phleboliths. SOFT TISSUES: No gross mass or suggestion of organomegaly. HARDWARE: Clips right upper quadrant post cholecystectomy BONES: No acute fracture. No worrisome bone lesions. OTHER: No other significant finding. IMPRESSION: Large amount of stool in the descending and sigmoid colon. Gaseous distention of the tr ansverse and ascending colon TECHNICAL DOCUMENTATION: JOB ID: [id number] [employer]- All Rights Reserved Reading location - IP/workstation name: [email or web address]
[2018-02-15] MEDS ORDERED: POTASSIUM CHLORIDE 10 MEQ CAPSULE.ER PO ONE (12:33)
[2018-02-15 13:21] VITALS: BP 172/108
== END 2018-02-15 13:08 | disposition home or self-care (01) ==
LOC: ER 09:53
DX: N39.0 Urinary tract infection, site not specified (principal); E87.6 Hypokalemia; K59.00 Constipation, unspecified; R10.9 Unspecified abdominal pain; I25.10 Atherosclerotic heart disease of native coronary artery without angina pectoris; E78.00 Pure hypercholesterolemia, unspecified; I10 Essential (primary) hypertension; J44.9 Chronic obstructive pulmonary disease, unspecified; E11.9 Type 2 diabetes mellitus without complications; I25.2 Old myocardial infarction; Z87.442 Personal history of urinary calculi; Z95.1 Presence of aortocoronary bypass graft; Z90.49 Acquired absence of other specified parts of digestive tract; Z98.51 Tubal ligation status
CPT/HCPCS: 99284; 96375; 96365; 36415; 83690; 85025; 80053; 81001; 74018; J0696; J2405

== ENCOUNTER 2018-02-22 11:05 | Emergency (ER) | payer MEDICAID ==
[2018-02-22] MEDS ORDERED: ASPIRIN 81 MG TABLET, CHEWABLE PO ONE (11:46)
--- NOTE | 2018-02-22 11:46 | ER Document Report ---
ED General - General Mode of Arrival: Ambulatory Information source: Patient TRAVEL OUTSIDE OF THE [place] IN LAST 30 DAYS: No <RYAN LOPEZ - Last Filed: 02/22/18 12:51> <BHAVYA GRIMM - Last Filed: 02/22/18 18:09> - General Chief Complaint: Chest Pain Stated Complaint: CHEST PAIN Time Seen by Provider: 02/22/18 11:31 Notes: 57-year-old female who presents to the emergency department today with complaints of left-sided chest pain for the last 2 days with associated abdominal pain. Patient states she snorts icy hot and that has been causing her to have abdominal pain recently. When asked why she snorts icy hot she responds with "someone told me about it, I tried it, and took a liking to it". Patient describes her chest pain as sharp. Patient states her pain increases with stress and sitting up. Patient denies any diarrhea or blood in her stool. (RYAN LOPEZ) - Related Data Allergies/Adverse Reactions: haloperidol [From Haldol] Allergy (Verified 02/22/18 11:07) haloperidol lactate [From Haldol] Allergy (Verified 02/22/18 11:07) Past Medical History - General Information source: Patient, [facility] Records - Social History Smoking Status: Current Every Day Smoker Cigarette use (# per day): Yes Frequency of alcohol use: None Family History: Reviewed & Not Pertinent, CAD - Extensive heart disease in both parents and brother with brother dying from complications of cardiac stent placement - Past Medical History Cardiac Medical History: Reports: Hx Coronary Artery Disease, Hx Heart Attack - x2, Hx Hypercholesterolemia, Hx Hypertension Pulmonary Medical History: Reports: Hx Bronchitis, Hx COPD Neurological Medical History: Reports: Hx Cerebrovascular Accident Endocrine Medical History: Reports: Hx Diabetes Mellitus Type 2 Renal/ Medical History: Reports: Hx Kidney Stones GI Medical History: Reports: Hx Gastroesophageal Reflux Disease Psychiatric Medical History: Reports: Hx Bipolar Disorder, Hx Depression, Hx Schizoaffective Disorder, Hx Schizophrenia Past Surgical History: Reports: Hx Cardiac Catheterization, Hx Cardiac Surgery - stents, CABG 09/2016, Hx Cholecystectomy, Hx Coronary Artery Bypass Graft - September 2016, Hx Coronary Stent - x2, Hx Open Heart Surgery, Hx Thyroid Surgery, Hx Tonsillectomy, Hx Tubal Ligation, Hx Urinary Tract Surgery, Hx Vascular Surgery - Immunizations Hx Diphtheria, Pertussis, Tetanus Vaccination: Yes Hx Pneumococcal Vaccination: 11/29/16 <RYAN LOPEZ - Last Filed: 02/22/18 12:51> Review of Systems - Review of Systems Constitutional: No symptoms reported EENT: No symptoms reported Cardiovascular: See HPI, Chest pain Respiratory: No symptoms reported Gastrointestinal: See HPI, Abdominal pain. denies: Diarrhea, Blood streaked bowels Genitourinary: No symptoms reported Female Genitourinary: No symptoms reported Musculoskeletal: No symptoms reported Skin: No symptoms reported Hematologic/Lymphatic: No symptoms reported Neurological/Psychological: No symptoms reported -: Yes All other systems reviewed and negative <RYAN LOPEZ - Last Filed: 02/22/18 12:51> Physical Exam <RYAN LOPEZ - Last Filed: 02/22/18 12:51> <BHAVYA GRIMM - Last Filed: 02/22/18 18:09> - Vital signs Vitals: Pulse Resp BP Pulse Ox 81 24 H 177/101 H 96 02/22/18 11:22 02/22/18 11:22 02/22/18 11:22 02/22/18 11:22 - Notes Notes: PHYSICAL EXAM GENERAL: Alert. No acute distress. HEAD: Normocephalic, atraumatic. EYES: Pupils equal, round, and reactive to light. Extraocular movements intact. Mild exophthalmos. ENT: Oral mucosa moist, tongue midline. DENTAL: Very poor dentition throughout NECK: Full range of motion. Supple. Trachea midline. LUNGS: Clear to auscultation bilaterally, no wheezes, rales, or rhonchi. No respiratory distress. HEART: Regular rate and rhythm. No murmurs, gallops, or rubs. ABDOMEN: Soft, mild right upper quadrant and epigastric tenderness with palpation. Non-distended. Bowel sounds present in all 4 quadrants. No guarding, rigidity, or rebound. EXTREMITIES: Moves all 4 extremities spontaneously. No edema, radial and dorsalis pedis pulses 2/4 bilaterally. No cyanosis. NEUROLOGICAL: Alert and oriented x3. Normal speech. PSYCH: Normal affect, normal mood. SKIN: Warm, dry, normal turgor. Healed sternotomy scar. (RYAN LOPEZ) Correction describe exam initially quite anxious, later able to walk up and down the lamar, very calm, no anxiety, normal affect. (BHAVYA GRIMM) Course - Laboratory Result Diagrams: 02/22/18 11:39 02/22/18 11:39 <RYAN LOPEZ - Last Filed: 02/22/18 12:51> - Laboratory Result Diagrams: 02/22/18 11:39 02/22/18 11:39 <BHAVYA GRIMM - Last Filed: 02/22/18 18:09> - Re-evaluation Re-evalutation: 02/22/18 17:40 CBC unremarkable, INR slightly prolonged at 1.23, potassium low at 3.0, patient given oral potassium to replete this, total and direct bilirubin are both elevated however these have been elevated for several months now, symptoms are unchanged. Patient has already had a cholecystectomy, minimal right upper quadrant tenderness to palpation. Cardiac enzymes are indeterminate x2 0.052 and 0.057 which is not a significant change and this is very similar to her prior troponins while here, EKG was not ischemic. Chest x-ray reveals no acute process at this time. Do not suspect the patient is having acute coronary syndrome at this time. Patient states she is feeling much better. Patient will be discharged home. 02/22/18 18:07 (BHAVYA GRIMM) - Vital Signs Vital signs: Temp Pulse Resp BP Pulse Ox 97.6 F 81 16 177/101 H 98 02/22/18 17:47 02/22/18 17:47 02/22/18 17:47 02/22/18 17:47 02/22/18 17:47 - Laboratory Laboratory results interpreted by me: 02/22/18 02/22/18 02/22/18 11:39 11:39 11:39 MCV 78 L MCH 25.0 L RDW 20.5 H PT 16.1 H Potassium 3.0 L* Carbon Dioxide 33 H Est GFR (Non-Af Amer) 59 L Total Bilirubin 3.1 H Direct Bilirubin 2.0 H AST 42 H Alkaline Phosphatase 139 H Total Protein 8.6 H - EKG Interpretation by Me Additional EKG results interpreted by me: 02/22/18 17:40 EKG shows sinus rhythm at a rate of 80, ventricular bigeminy, no ST segment elevations or depressions, no T wave inversions per my interpretation. (BHAVYA GRIMM) Discharge <RYAN LOPEZ - Last Filed: 02/22/18 12:51> <BHAVYA GRIMM - Last Filed: 02/22/18 18:09> - Discharge Clinical Impression: Chest pain Qualifiers: Chest pain type: precordial pain Qualified Code(s): R07.2 - Precordial pain Abdominal pain Qualifiers: Abdominal location: epigastric Qualified Code(s): R10.13 - Epigastric pain Condition: Stable Disposition: HOME, SELF-CARE Additional Instructions: I do not know exactly what is causing your chest pain your abdominal pain today. Today your workup did not show any signs of abdominal infection, blockage, pneumonia or heart attack. 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 Please stop putting icy hot up your nose. With the exception of nasal steroids there is nothing that you should be putting up your nose. Please do not put anything up your nose. Please return to the emergency department for fevers, severe pain, uncontrollable vomiting or any new or concerning symptoms. Referrals: TREVON SKAGGS PA-C [Primary Care Provider] - Follow up as needed Scribe Attestation: 02/22/18 18:09 I personally performed the services described in the documentation, reviewed and edited the documentation which was dictated to the scribe in my presence, and it accurately records my words and actions. (BHAVYA GRIMM) Scribe Documentation - Scribe Written by Iraidaibe:: Angella Constantino, 02/22/2018 1303 acting as scribe for :: Bertha <RYAN LOPEZ - Last Filed: 02/22/18 12:51>
--- NOTE | 2018-02-22 11:51 | RADIOLOGY REPORT (SQ) ---
EXAM DESCRIPTION: CHEST SINGLE VIEW COMPLETED DATE/TIME: 02/22/2018 11:43 am REASON FOR STUDY: Chest Pain COMPARISON: 11/26/2017 EXAM PARAMETERS: NUMBER OF VIEWS: One view. TECHNIQUE: Single frontal radiographic view of the chest acquired. RADIATION DOSE: NA LIMITATIONS: None. FINDINGS: LUNGS AND PLEURA: No opacities, masses or pneumothorax. No pleural effusion. MEDIASTINUM AND HILAR STRUCTURES: No masses. Contour normal. HEART AND VASCULAR STRUCTURES: Heart normal in size. Normal vasculature. BONES: No acute findings. HARDWARE: Sternal wires. OTHER: No other significant finding. IMPRESSION: NO ACUTE RADIOGRAPHIC FINDING IN THE CHEST. TECHNICAL DOCUMENTATION: JOB ID: [id number] [employer]- All Rights Reserved Reading location - IP/workstation name: [email or web address]
[2018-02-22 12:02] LABS: ABSOLUTE BASOPHILS # (AUTO) 0.1 10^3/uL (0.0-0.2); ABSOLUTE LYMPHOCYTES (AUTO) 2.2 10^3/uL (0.5-4.7); ABSOLUTE MONOCYTES (AUTO) 0.8 10^3/uL (0.1-1.4); ABSOLUTE NEUT (AUTO) 4.4 10^3/uL (1.7-8.2); BASOPHILS % (AUTO) 1.8 % (0-2); EOSINOPHILS % (AUTO) 0.3 % (0-6); HEMATOCRIT 39.3 % (36.0-47.0); HEMOGLOBIN 12.6 g/dL (12.0-15.5); LYMPHOCYTES % (AUTO) 28.8 % (13-45); MEAN CORPUSCULAR VOLUME 78 fl (80-97); MONOCYTES % (AUTO) 11.2 % (3-13); PLATELET COUNT 264 10^3/uL (150-450); RED BLOOD COUNT 5.04 10^6/uL (3.72-5.28); RED CELL DISTRIBUTION WIDTH 20.5 % (11.5-14.0); SEGMENTED NEUTROPHILS % (AUTO) 57.9 % (42-78); TOTAL CELLS COUNTED % (AUTO) 100 %; WHITE BLOOD COUNT 7.6 10^3/uL (4.0-10.5)
[2018-02-22 12:13] LABS: INTERNATIONAL RATION (INR) 1.23; PROTHROMBIN TIME 16.1 SEC (11.4-15.4)
[2018-02-22 12:24] LABS: ALANINE AMINOTRANSFERASE 13 U/L (9-52); ALKALINE PHOSPHATASE 139 U/L (38-126); ANION GAP 11 (5-19); ASPARTATE AMINO TRANSFERASE 42 U/L (14-36); BILIRUBIN,TOTAL 3.1 mg/dL (0.2-1.3); BLOOD UREA NITROGEN 7 mg/dL (7-20); CALCIUM 9.4 mg/dL (8.4-10.2); CARBON DIOXIDE 33 mmol/L (22-30); CHLORIDE 99 mmol/L (98-107); CREATINE KINASE 70 U/L (30-135); GLUCOSE 107 mg/dL (75-110); SODIUM 142.9 mmol/L (137-145); TOTAL PROTEIN 8.6 g/dL (6.3-8.2)
[2018-02-22 12:35] LABS: CREATINE KINASE MB 1.9 ng/mL (<4.55)
[2018-02-22 12:37] LABS: TROPONIN I 0.052 ng/mL
[2018-02-22] MEDS ORDERED: POTASSIUM CHLORIDE 20 MEQ/15 ML UDCUP PO ONE (13:10)
--- NOTE | 2018-02-22 15:40 | EKG REPORT ---
SEVERITY:- ABNORMAL ECG - SINUS RHYTHM VENTRICULAR BIGEMINY INFERIOR INFARCT, AGE INDETERMINATE LATERAL INFARCT, AGE INDETERMINATE : Confirmed by: Ermias Smith 22-Feb-2018 15:39:43
[2018-02-22] MEDS ORDERED: ALBUTEROL SULFATE 0.083% NEB 2.5 MG/3 ML AMPUL NEB ONE (16:16)
[2018-02-22 17:48] VITALS: BP 177/101
== END 2018-02-22 17:48 | disposition home or self-care (01) ==
LOC: ER 11:05
DX: R07.2 Precordial pain (principal); R10.13 Epigastric pain; F17.200 Nicotine dependence, unspecified, uncomplicated; I25.10 Atherosclerotic heart disease of native coronary artery without angina pectoris; I25.2 Old myocardial infarction; I10 Essential (primary) hypertension; E11.9 Type 2 diabetes mellitus without complications; J44.9 Chronic obstructive pulmonary disease, unspecified
CPT/HCPCS: 93005; 99285; 36415; 82553; 82550; 85025; 85610; 80053; 84484; 71045; 93010; J3490

== ENCOUNTER 2018-03-01 10:30 | Inpatient (IN) | payer MEDICAID ==
--- NOTE | 2018-02-26 10:48 | ER Document Report ---
ED Medical Screen (RME) - General Chief Complaint: Psych Problem Stated Complaint: PSYCH EVAL Time Seen by Provider: 02/26/18 10:38 Notes: Patient is a 57-year-old female that presents to the emergency department for chief complaint of hallucinations, and altered mental status. Relative at bedside states that the patient her last few months has been doing bizarre things at home and seemingly getting more frequent and worse over the past few weeks, she is been having hallucinations, and apparently had a knife in her room, and even a few months ago was making motions with a knife to stab herself he is noticed a significant decline, she has been hospitalized many years ago for psychiatric reasons, and that seemed to help her a lot, and they are looking to see if that was a possibility again. ROS: Other than noted above, the 12 point review of systems was reviewed with the patient and were negative, all pertinent findings are included in the HPI. PHYSICAL EXAMINATION: Vital signs reviewed. GENERAL: Well-appearing, well-nourished and in no acute distress. HEAD: Atraumatic, normocephalic. EYES: Pupils equal round extraocular movements intact, conjunctiva are normal. ENT: Nares patent NECK: Normal range of motion CV: Heart regular rate and rhythm LUNGS: No respiratory distress Musculoskeletal: Normal range of motion NEUROLOGICAL: Normal speech PSYCH: Normal mood, normal affect. MDM: Patient seen and examined for rapid initial assessment. Vital signs reviewed. A comprehensive ED assessment and evaluation of the patient, analysis of test results and completion of the medical decision making process will be conducted by additional ED providers. *Note is created using voice recognition software and may contain spelling, syntax or grammatical errors. TRAVEL OUTSIDE OF THE [place] IN LAST 30 DAYS: No - Related Data Allergies/Adverse Reactions: haloperidol [From Haldol] Allergy (Verified 02/26/18 10:31) haloperidol lactate [From Haldol] Allergy (Verified 02/26/18 10:31) Past Medical History - Social History Family history: Reviewed & Not Pertinent - Past Medical History Cardiac Medical History: Reports: Hx Coronary Artery Disease, Hx Heart Attack - x2, Hx Hypercholesterolemia, Hx Hypertension Pulmonary Medical History: Reports: Hx Bronchitis, Hx COPD Neurological Medical History: Reports: Hx Cerebrovascular Accident Endocrine Medical History: Reports: Hx Diabetes Mellitus Type 2 Renal/ Medical History: Reports: Hx Kidney Stones. Denies: Hx Peritoneal Dialysis GI Medical History: Reports: Hx Gastroesophageal Reflux Disease Psychiatric Medical History: Reports: Hx Bipolar Disorder, Hx Depression, Hx Schizoaffective Disorder, Hx Schizophrenia Past Surgical History: Reports: Hx Cardiac Catheterization, Hx Cardiac Surgery - stents, CABG 09/2016, Hx Cholecystectomy, Hx Coronary Artery Bypass Graft - September 2016, Hx Coronary Stent - x2, Hx Open Heart Surgery, Hx Thyroid Surgery, Hx Tonsillectomy, Hx Tubal Ligation, Hx Urinary Tract Surgery, Hx Vascular Surgery - Immunizations Hx Diphtheria, Pertussis, Tetanus Vaccination: Yes History of Influenza Vaccine for 11/2016 - 04/2017 Season: Yes Influenza Administration Date for 11/2016 - 04/2017 Season: 11/29/16 Physical Exam - Vital signs Vitals: Temp Pulse Resp BP 97.3 F 73 20 146/86 H 02/26/18 10:32 02/26/18 10:32 02/26/18 10:32 02/26/18 10:32 Course - Vital Signs Vital signs: Temp Pulse Resp BP Pulse Ox 97.3 F 73 20 146/86 H 02/26/18 10:32 02/26/18 10:32 02/26/18 10:32 02/26/18 10:32 Doctor's Discharge - Discharge Referrals: TREVON SKAGGS PA-C [Primary Care Provider] - Follow up as needed
--- NOTE | 2018-02-26 11:40 | ER Document Report ---
ED Psych Disorder / Suicide - General Chief Complaint: Psych Problem Stated Complaint: PSYCH EVAL Time Seen by Provider: 02/26/18 10:38 Notes: 57-year-old female that presents to the emergency department for chief complaint of hallucinations, and altered mental status. Relative at bedside states that the patient her last few months has been doing bizarre things at home and seemingly getting more frequent and worse over the past few weeks, she is been having hallucinations, and apparently had a knife in her room, and even a few months ago was making motions with a knife to stab herself he is noticed a significant decline, she has been hospitalized many years ago for psychiatric reasons. The patient describes the voices telling her that she is going to . That she is going to be buried. She is also seeing animals. She describes a seen where she is buried under a large oak tree and there is a large white cross on her grave. Son who is present stated that she is not been taking her medications correctly. TRAVEL OUTSIDE OF THE [place] IN LAST 30 DAYS: No - Related Data Allergies/Adverse Reactions: haloperidol [From Haldol] Allergy (Verified 02/26/18 10:31) haloperidol lactate [From Haldol] Allergy (Verified 02/26/18 10:31) Past Medical History - Social History Smoking Status: Current Every Day Smoker Family History: Reviewed & Not Pertinent, CAD - Extensive heart disease in both parents and brother with brother dying from complications of cardiac stent placement Patient has suicidal ideation: No Patient has homicidal ideation: No - Past Medical History Cardiac Medical History: Reports: Hx Coronary Artery Disease, Hx Heart Attack - x2, Hx Hypercholesterolemia, Hx Hypertension Pulmonary Medical History: Reports: Hx Bronchitis, Hx COPD Neurological Medical History: Reports: Hx Cerebrovascular Accident Endocrine Medical History: Reports: Hx Diabetes Mellitus Type 2 Renal/ Medical History: Reports: Hx Kidney Stones. Denies: Hx Peritoneal Dialysis GI Medical History: Reports: Hx Gastroesophageal Reflux Disease Psychiatric Medical History: Reports: Hx Bipolar Disorder, Hx Depression, Hx Schizoaffective Disorder, Hx Schizophrenia Past Surgical History: Reports: Hx Cardiac Catheterization, Hx Cardiac Surgery - stents, CABG 09/2016, Hx Cholecystectomy, Hx Coronary Artery Bypass Graft - September 2016, Hx Coronary Stent - x2, Hx Open Heart Surgery, Hx Thyroid Surgery, Hx Tonsillectomy, Hx Tubal Ligation, Hx Urinary Tract Surgery, Hx Vascular Surgery - Immunizations Hx Diphtheria, Pertussis, Tetanus Vaccination: Yes Hx Pneumococcal Vaccination: 11/29/16 Review of Systems - Review of Systems Cardiovascular: denies: Chest pain, Dyspnea Respiratory: denies: Short of breath Neurological/Psychological: Hallucinations. denies: Confusion, Dementia, Homicidal ideation, Headaches, Suicidal ideation -: Yes All other systems reviewed and negative Physical Exam - Vital signs Vitals: Temp Pulse Resp BP Pulse Ox 97.3 F 73 20 146/86 H 100 02/26/18 10:32 02/26/18 10:32 02/26/18 10:32 02/26/18 10:32 02/26/18 10:32 - Notes Notes: GENERAL_APPEARANCE: well_nourished, alert, cooperative, no_acute_distress, no_obvious_discomfort. VITALS: reviewed, see vital signs table. HEAD: no_swelling\tenderness on the head. EYES: PERRL, EOMI, conjunctiva_clear. NOSE: no_nasal_discharge. MOUTH: (-)decreased moisture. THROAT: no_throat _inflammation, no_airway_obstruction. no_lymphadenopathy NECK: supple, no_neck_tenderness, (-)thyromegaly. BACK: no_back_tenderness. CHEST_WALL: no_chest_tenderness. LUNGS: no_wheezing, no_rales, no_rhonchi, (-)accessory muscle use, good air exchange bilateral. HEART: normal_rate, normal_rhythm, normal_S1, normal_S2, (-)S3, (-)S4, no_murmur, no_rub. ABDOMEN: normal_BS, soft, no_abd_tenderness, (-)guarding, (-)rebound, no_organomegaly, no_abd_masses. EXTREMITIES: good pulses in all_extremities, no_swelling\tenderness in the extremities, no_edema. SKIN: warm, dry, good_color, no_rash. MENTAL_STATUS: speech_clear, oriented_X_3, bizarre_affect, responds_appropriately to questions. NEURO: Neg Motor or Sensory Deficits on exam, CN 2-12 intact, DTR 2+ symmetric x 4, No cerbellar signs PSYCH: Patient states that she is seeing images and hearing voices telling her that she is going to . She states she sees a grave under a large oak tree with a white cross. Voices are telling her this is where she is going to at she sees animals walking around the grave. Patient denies any suicidal or homicidal ideation. Patient is pleasant. Course - Re-evaluation Re-evalutation: 02/26/18 11:37 Patient presents for psychiatric evaluation for auditory and visual hallucinations. Voices are telling her that she is going to . The patient has had prior episodes of gestures of self-harm. The patient has not been taking her medications at home son is been trying to regulate her the best he can but feels that the situation is getting difficult to manage and she is at risk. Her performing blood and urine EKG EKG shows old changes nothing acute. Looking at the patient's labs they are relatively unchanged from prior visits. The patient does have an elevated bilirubin. Looking back this is fairly consistent upon every visit and this is near her baseline. She complained of a little epigastric discomfort initially I gave her a GI cocktail and she has absolutely no belly pain on reexamination. Again this is likely a chronic condition potassium was a little bit low for which I supplemented She is medically stable for inpatient psychiatric care she would require. 02/26/18 16:05 - Vital Signs Vital signs: Temp Pulse Resp BP Pulse Ox 97.3 F 73 20 146/86 H 100 02/26/18 10:32 02/26/18 10:32 02/26/18 10:32 02/26/18 10:32 02/26/18 10:32 - Laboratory Result Diagrams: 02/26/18 11:42 02/26/18 15:25 Laboratory results interpreted by me: 02/26/18 02/26/18 02/26/18 11:24 11:42 15:25 RBC 5.66 H MCV 77 L MCH 25.0 L RDW 20.5 H Potassium 3.1 L Est GFR (Non-Af Amer) 55 L Glucose 126 H Total Bilirubin 2.5 H Direct Bilirubin 1.4 H AST 37 H Alkaline Phosphatase 141 H Total Protein 8.8 H Urine Protein 100 H Urine Blood LARGE H Urine Urobilinogen 2.0 H Ur Leukocyte Esterase TRACE H Salicylates < 1.0 L Acetaminophen < 10 L - EKG Interpretation by Me EKG shows normal: Sinus rhythm Rate: Normal Rhythm: NSR When compared to previous EKG there are: No significant change Additional EKG results interpreted by me: 02/26/18 11:39 There are Q waves noted inferiorly. Looking back on prior EKGs these were present also on old EKGs. She has a history of coronary artery bypass grafting. Discharge - Discharge Clinical Impression: Bipolar 1 disorder, depressed Schizophrenia Qualifiers: Schizophrenia type: unspecified Qualified Code(s): F20.9 - Schizophrenia, unspecified Referrals: TREVON SKAGGS PA-C [Primary Care Provider] - Follow up as needed
[2018-02-26 11:53] LABS: APPEARANCE,URINE SLIGHTLY-CLOUDY; BILIRUBIN,URINE NEGATIVE (NEGATIVE); COLOR,URINE AMBER; GLUCOSE, URINE NEGATIVE (NEGATIVE); KETONES,URINE NEGATIVE (NEGATIVE); LEUKOCYTE ESTERASE,URINE TRACE (NEGATIVE); NITRITE,URINE NEGATIVE (NEGATIVE); PROTEIN,URINE 100 mg/dL (NEGATIVE); URINE SPECIFIC GRAVITY 1.012
[2018-02-26 11:58] LABS: ABSOLUTE BASOPHILS # (AUTO) 0.2 10^3/uL (0.0-0.2); ABSOLUTE EOSINOPHILS # (AUTO) 0.1 10^3/uL (0.0-0.6); ABSOLUTE LYMPHOCYTES (AUTO) 2.7 10^3/uL (0.5-4.7); EOSINOPHILS % (AUTO) 0.9 % (0-6); HEMATOCRIT 43.6 % (36.0-47.0); HEMOGLOBIN 14.2 g/dL (12.0-15.5); MEAN CORPUSCULAR HGB CONC 32.5 g/dL (32.0-36.0); MEAN CORPUSCULAR VOLUME 77 fl (80-97); PLATELET COUNT 261 10^3/uL (150-450); RED BLOOD COUNT 5.66 10^6/uL (3.72-5.28); RED CELL DISTRIBUTION WIDTH 20.5 % (11.5-14.0); SEGMENTED NEUTROPHILS % (AUTO) 60.1 % (42-78); TOTAL CELLS COUNTED % (AUTO) 100 %
[2018-02-26 12:05] LABS: URINE AMPHETAMINES SCREEN NEGATIVE; URINE BARBITURATES SCREEN NEGATIVE; URINE BENZODIAZEPINES SCREEN NEGATIVE; URINE COCAINE SCREEN NEGATIVE; URINE MARIJUANA (THC) SCREEN NEGATIVE; URINE METHADONE SCREEN NEGATIVE; URINE PHENCYCLIDINE SCREEN NEGATIVE
--- NOTE | 2018-02-26 12:57 | EKG REPORT ---
SEVERITY:- ABNORMAL ECG - SINUS RHYTHM INFERIOR INFARCT, AGE INDETERMINATE LATERAL INFARCT, AGE INDETERMINATE PROLONGED QT INTERVAL : Confirmed by: Ermias Smith 26-Feb-2018 12:56:46
[2018-02-26 16:02] LABS: ACETAMINOPHEN < 10 ug/mL (10-30); ALANINE AMINOTRANSFERASE 14 U/L (9-52); ALBUMIN 4.2 g/dL (3.5-5.0); ALCOHOL < 10 mg/dL (NONE DETECTED); ALKALINE PHOSPHATASE 141 U/L (38-126); ANION GAP 15 (5-19); ASPARTATE AMINO TRANSFERASE 37 U/L (14-36); BILIRUBIN,DIRECT 1.4 mg/dL (0.0-0.4); BILIRUBIN,TOTAL 2.5 mg/dL (0.2-1.3); BLOOD UREA NITROGEN 10 mg/dL (7-20); CALCIUM 9.8 mg/dL (8.4-10.2); CARBON DIOXIDE 28 mmol/L (22-30); CHLORIDE 102 mmol/L (98-107); GLUCOSE 126 mg/dL (75-110); POTASSIUM 3.1 mmol/L (3.6-5.0); SALICYLATE < 1.0 mg/dL (2.0-20.0); SODIUM 144.7 mmol/L (137-145); TOTAL PROTEIN 8.8 g/dL (6.3-8.2)
--- NOTE | 2018-02-26 19:21 | ER Document Report ---
Doctor's Note Notes: 02/26/18 19:20 Patient signed out to me by Dr. Bonner. Patient seen by [facility]. Would like head CT obtained for history of ataxia with frequent falls. They will re- evaluate patient in the morning. 02/26/18 19:21
--- NOTE | 2018-02-26 19:54 | RADIOLOGY REPORT (SQ) ---
EXAM DESCRIPTION: CT HEAD WITHOUT COMPLETED DATE/TIME: 02/26/2018 7:45 pm REASON FOR STUDY: ataxia. COMPARISON: 07/18/2017. TECHNIQUE: Axial images acquired through the brain without intravenous contrast. Images reviewed wi th bone, brain and subdural windows. Images stored on PACS. All CT scanners at this facility use dose modulation, iterative reconstruction, and/or weight based d osing when appropriate to reduce radiation dose to as low as reasonably achievable (ALARA). [facility]: Dose Right [facility]: SureCare [facility]: Dose Right [facility]: Teradose 4D [facility]: Smart Stormpulse RADIATION DOSE: CT Rad equipment meets quality standard of care and radiation dose reduction techniq ues were employed. CTDIvol: 53.2 mGy. DLP: 964 mGy-cm. mGy. LIMITATIONS: None. FINDINGS: VENTRICLES: Normal size and contour. CEREBRUM: Spotty white matter changes. Old right parietal infarct. No evidence of acute infarct, he morrhage or mass or shift. No hydrocephalus. CEREBELLUM: No mass effect. No hemorrhage. No alteration of density. No evidence for acute infarct ion. EXTRAAXIAL SPACES: No fluid collections. ORBITS AND GLOBE: Symmetrical contour of the globes. CALVARIUM: No depressed skull fracture. PARANASAL SINUSES: No air-fluid level. SOFT TISSUES: No hematoma. IMPRESSION: 1. Chronic changes. Small vessel disease and old right infarct. TECHNICAL DOCUMENTATION: JOB ID: [id number] [id number]: Final reports with documentation of one or more dose reduction techniques (e.g., Automate d exposure control, adjustment of the mA and/or kV according to patient size, use of iterative recons truction technique) 2010 [employer]- All Rights Reserved Reading location - IP/workstation name: [email or web address]
--- NOTE | 2018-02-27 09:16 | ER Document Report ---
Doctor's Note Notes: Patient seen and evaluated by myself. Patient brought to the emergency department for hallucinations. Patient is hearing voices that tell her she is going to and seeing animals that are not there. History of bipolar disorder. Patient has not been taking her medications. No issues overnight per nursing. Patient has no complaints in the room. She states that she is still seeing the animals and hearing voices. Behavioral health recommending to start the patient on Depakote and BuSpar. Awaiting further behavioral health recommendations. 02/27/18 16:46 Behavioral health spoke with the family member's sister who said that they would not be able to manage the patient at home. A social service consult was placed to arrange for superintendent container terminal living arrangements.
[2018-02-27] MEDS: BUSPIRONE HCL 10 MG TABLET PO SCH ×2 (10:57→21:31)
[2018-02-27] MEDS: DIVALPROEX SODIUM 250 MG TAB.SR.24H PO SCH ×2 (10:57→20:53)
--- NOTE | 2018-02-27 16:53 | PSYCHOLOGICAL NOTE ---
Psych Note - Psych Note Date seen by psych provider: 02/27/18 Time seen by psych provider: 08:15 Psych Note: Reason for consult: AV/H Contact Permissions: Evelin Virk [phone] Check in with patient who denies AV/H today and does not appear to be responding to internal stimuli aeb thoughts are linear and organized, attention is good, and she appears to be in no distress and reports mood as good (smiling). AV/H has been bad this last month with her seeing "gators, dark shadows and a cross by a tree". Patient relays that she hasn't been taking her medications daily for fear of her "tummy hurting/Paxil and Seroquel not doing a good job" and relays that she feels she needs to "go back to [place]". She speaks at length about falling multiple times recently, hitting her head and scraping her knees/worries that hse's going to fall and crush her chest. She admits her recent falls are her primary concern as she is now "I freeze/scared to move around the house, go to the bathroom, outside etc... "The hallucinations don't bother me much/I'm used to them after all these years (laughing) and describes how she cuddles a stuffed animal kitten to self sooth. Patient's sister Evelin Virk reports that patient has been evicted from her home because of the AV/H and calling the police repeatedly. She has been falling a frequently, not taking her medication as directed sometimes not at all, and has lost 50lbs in last 6 months. Patient is no longer able to care for herself and sister is unable to care for her as she is already caring for her older brother in her home and patient's son does not have the space to take in another person. Patient was alert and oriented x 4. Mood was anxious with congruent affect. Patient denied endorsed SI, HI, and AV/H, does not appear to be responding to internal stimuli and no delusions were noted. Thought processes were linear, organized, and rational. Conversational speech was WNL for rate, tone, and prosody but slow and soft. Eye contact was intermittent. Intellectual abilities were estimated within the average range. Immediate and remote memory was fair. Attention and concentration was WNL, while insight, judgment, and impulse control was fair. Diagnosis: 295.90 (F20.9) Schizophrenia, per hx Medication recommendations as per psychiatric provider, Dr. Currie are as follows: No medication recommendations at this time. Impression/Plan: Patient is psychiatrically clear from acute psychiatric services as she is no longer at risk of harm to self or others aeb patient has stabilized on medication, is calm, cooperative, denies AV/H, does not appear to be responding to internal stimuli and no delusions were noted. Patient is a 57 yo female with hx of Schizophrenia and dementia who is no longer able to care for herself per patient and her family as she is falling frequently, does not take her medication as directed resulting in frequent psychotic periods, and is not eating regularly/losing weight. Patient reports her primary concern as falling frequently. Plan is to request social work consult as patient has been evicted from her home due to behaviors related to her mental health and her family is unable to manage her in their homes. Consulted Dr. Armenta in the care and treatment of this patient and ED physician who is in agreement with recommendation and disposition.
[2018-02-28] MEDS: BUSPIRONE HCL 10 MG TABLET PO SCH ×2 (07:48→22:55)
--- NOTE | 2018-02-28 09:13 | ER Document Report ---
Doctor's Note Notes: 02/28/18 09:48 Patient seen and evaluated by myself. She was brought to the emergency department for hallucinations. She is been hearing voices. Behavioral health was consulted. They started her on Depakote and BuSpar. He contacted the family members sister who refused to take the patient home. She said that she was unable to care for the patient. A social service consult was placed to arrange for discharge and possible assisted living.
[2018-02-28] MEDS: DIVALPROEX SODIUM 250 MG TAB.SR.24H PO SCH ×2 (09:35→18:34)
[2018-02-28] MEDS: METOPROLOL SUCCINATE 25 MG TAB.SR.24H PO SCH (18:48)
--- NOTE | 2018-02-28 21:20 | ER Document Report ---
Doctor's Note Notes: 02/28/18 21:18 Informed me that patient was complaining of chest pain. Patient has a cardiac history but is also here on psychiatric papers. A EKG was obtained. EKG does show some changes in the anterior lateral lead V4 via V5 and V6. A troponin was ordered. Repeat troponin ordered x2 every 4 hours for a total of 3. We will continue to monitor. I have ordered a nitro at this time. Course - Vital Signs Vital signs: Temp Pulse Resp BP Pulse Ox 98.2 F 76 18 165/106 H 100 02/28/18 18:22 02/28/18 18:22 02/28/18 06:40 02/28/18 18:22 02/28/18 18:22 - Laboratory Result Diagrams: 02/26/18 11:42 02/26/18 15:25 Laboratory results interpreted by me: 02/26/18 02/26/18 02/26/18 11:24 11:42 15:25 RBC 5.66 H MCV 77 L MCH 25.0 L RDW 20.5 H Potassium 3.1 L Est GFR (Non-Af Amer) 55 L Glucose 126 H POC Glucose Total Bilirubin 2.5 H Direct Bilirubin 1.4 H AST 37 H Alkaline Phosphatase 141 H Total Protein 8.8 H Urine Protein 100 H Urine Blood LARGE H Urine Urobilinogen 2.0 H Ur Leukocyte Esterase TRACE H Salicylates < 1.0 L Acetaminophen < 10 L 02/26/18 02/28/18 20:41 00:40 RBC MCV MCH RDW Potassium Est GFR (Non-Af Amer) Glucose POC Glucose 122 H 119 H Total Bilirubin Direct Bilirubin AST Alkaline Phosphatase Total Protein Urine Protein Urine Blood Urine Urobilinogen Ur Leukocyte Esterase Salicylates Acetaminophen - EKG Interpretation by Me EKG shows normal: Sinus rhythm, [place], Intervals, QRS Complexes When compared to previous EKG there are: No significant change Additional EKG results interpreted by me: 02/28/18 21:20 Inverted T wave in V4, V5, V6
--- NOTE | 2018-02-28 23:39 | EKG REPORT ---
SEVERITY:- ABNORMAL ECG - SINUS RHYTHM INFERIOR INFARCT, AGE INDETERMINATE LATERAL INFARCT, AGE INDETERMINATE CONSIDER POSTERIOR WALL INVOLVEMENT : Confirmed by: Smita Luque MD 28-Feb-2018 23:37:59
[2018-03-01] MEDS: BUSPIRONE HCL 10 MG TABLET PO SCH ×2 (08:33→22:00)
[2018-03-01] MEDS: METOPROLOL SUCCINATE 25 MG TAB.SR.24H PO SCH ×2 (08:34→18:04)
--- NOTE | 2018-03-01 10:12 | ER Document Report ---
Doctor's Note Notes: 03/01/18 10:08 Patient seen and evaluated by myself. She was brought to the emergency department for hallucinations. She was hearing voices. Behavioral health consulted. They started her on Depakote and BuSpar. Family refused to take the patient home. They state that they are unable to care for the patient. Social service consult was placed to arrange for discharge. She became agitated and was given Ativan last night. She also complained of chest pain last night. An EKG was obtained. No ischemic changes were noted. Repeat troponins were drawn. They are all in the indeterminate range. Patient is drowsy in the room on re- evaluation. Likely secondary to the ativan. human services worker was consulted and are evaluating the patient. 03/01/18 10:25 03/01/18 18:51 Patient is still drowsy on re-evaluation. Concern for new altered mental status. Labs and imaging ordered.
[2018-03-01] MEDS: DIVALPROEX SODIUM 250 MG TAB.SR.24H PO SCH ×2 (10:25→18:04)
[~2018-03-01 10:30] MED LIST: ACETAMINOPHEN 325 MG TABLET PO ONE; FAMOTIDINE 20 MG TABLET PO ONE; HYDRALAZINE HCL INJ/PF 20 MG/1 ML SDV IV ONE; LIDOCAINE 2% VISCOUS SOLN 20 ML UDCUP PO ONE; LORAZEPAM INJ 2 MG/1 ML VIAL IV ONE; MAG HYDROX/AL HYDROX/SIMETH SUSP 30 ML UDCUP PO ONE; METOCLOPRAMIDE HCL ORAL SOLN 10 MG/10 ML UDCUP PO ONE; METOPROLOL SUCCINATE 25 MG TAB.SR.24H PO ONE; NITROGLYCERIN 0.4 MG/TAB 25 TAB/BOTTLE SL ONE; ONDANSETRON HCL INJ/PF 4 MG/2 ML SDV IV ONE; ONDANSETRON HCL INJ/PF 4 MG/2 ML SDV ONE; POTASSIUM CHLORIDE 10 MEQ CAPSULE.ER PO ONE
[2018-03-01] MEDS ORDERED: HYDRALAZINE HCL 10 MG TABLET PO ONE (13:35)
[2018-03-01 19:30] LABS: ABSOLUTE MONOCYTES (AUTO) 0.7 10^3/uL (0.1-1.4); HEMOGLOBIN 13.2 g/dL (12.0-15.5); TOTAL CELLS COUNTED % (AUTO) 100 %
[2018-03-01 19:38] LABS: APPEARANCE,URINE CLEAR; BILIRUBIN,URINE NEGATIVE (NEGATIVE); COLOR,URINE YELLOW; GLUCOSE, URINE NEGATIVE (NEGATIVE); KETONES,URINE NEGATIVE (NEGATIVE); LEUKOCYTE ESTERASE,URINE NEGATIVE (NEGATIVE); NITRITE,URINE NEGATIVE (NEGATIVE); PROTEIN,URINE 100 mg/dL (NEGATIVE); URINE SPECIFIC GRAVITY 1.009; UROBILINOGEN,URINE NEGATIVE mg/dL (<2.0)
[2018-03-01 19:43] LABS: ALANINE AMINOTRANSFERASE 15 U/L (9-52); ALBUMIN 3.4 g/dL (3.5-5.0); ALKALINE PHOSPHATASE 115 U/L (38-126); ANION GAP 11 (5-19); ASPARTATE AMINO TRANSFERASE 25 U/L (14-36); BILIRUBIN,TOTAL 1.8 mg/dL (0.2-1.3); BLOOD UREA NITROGEN 9 mg/dL (7-20); CALCIUM 9.1 mg/dL (8.4-10.2); CARBON DIOXIDE 32 mmol/L (22-30); CHLORIDE 98 mmol/L (98-107); GLUCOSE 137 mg/dL (75-110); SODIUM 141.4 mmol/L (137-145); TOTAL PROTEIN 7.3 g/dL (6.3-8.2)
[2018-03-01 19:57] LABS: ABSOLUTE LYMPHOCYTES (AUTO) 2.4 10^3/uL (0.5-4.7); BASOPHILS % (AUTO) 0.6 % (0-2); EOSINOPHILS % (AUTO) 0.4 % (0-6); HEMATOCRIT 41.3 % (36.0-47.0); LYMPHOCYTES % (AUTO) 29.5 % (13-45); MEAN CORPUSCULAR HEMOGLOBIN 24.7 pg (27.0-33.4); MEAN CORPUSCULAR HGB CONC 31.9 g/dL (32.0-36.0); MEAN CORPUSCULAR VOLUME 77 fl (80-97); MONOCYTES % (AUTO) 8.5 % (3-13); PLATELET COUNT 297 10^3/uL (150-450); RED BLOOD COUNT 5.33 10^6/uL (3.72-5.28); RED CELL DISTRIBUTION WIDTH 19.5 % (11.5-14.0); WHITE BLOOD COUNT 8.1 10^3/uL (4.0-10.5)
[2018-03-01 20:01] LABS: POTASSIUM 2.9 mmol/L (3.6-5.0)
--- NOTE | 2018-03-01 20:04 | RADIOLOGY REPORT (SQ) ---
EXAM DESCRIPTION: CT HEAD WITHOUT COMPLETED DATE/TIME: 03/01/2018 7:55 pm REASON FOR STUDY: altered mental status COMPARISON: 02/26/2018. TECHNIQUE: Axial images acquired through the brain without intravenous contrast. Images reviewed wi th bone, brain and subdural windows. Images stored on PACS. All CT scanners at this facility use dose modulation, iterative reconstruction, and/or weight based d osing when appropriate to reduce radiation dose to as low as reasonably achievable (ALARA). [facility]: Dose Right [facility]: CareDose [facility]: Dose Right [facility]: Teradose 4D [facility]: [employer] RADIATION DOSE: CT Rad equipment meets quality standard of care and radiation dose reduction techniq ues were employed. CTDIvol: 53.2 mGy. DLP: 1017 mGy-cm. mGy. LIMITATIONS: None. FINDINGS: VENTRICLES: Prominent. CEREBRUM: No masses. No hemorrhage. No midline shift. Areas of low density in the white matter mos t likely due to chronic micro-vascular ischemic change. Old right parietal infarct. No evidence for acute infarction. CEREBELLUM: No masses. No hemorrhage. No alteration of density. No evidence for acute infarction. EXTRAAXIAL SPACES: Mild age-related involutional change. No fluid collections. No masses. ORBITS AND GLOBE: No intra- or extraconal masses. Normal contour of globe without masses. CALVARIUM: No fracture. PARANASAL SINUSES: No fluid or mucosal thickening. SOFT TISSUES: No mass or hematoma. OTHER: No other significant finding. IMPRESSION: MILD CHRONIC CHANGES OF ATROPHY AND MICROVASCULAR ISCHEMIA. 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 NO ACUTE PROCESS. EVIDENCE OF ACUTE STROKE: NO. TECHNICAL DOCUMENTATION: JOB ID: [id number] Quality ID # [id number]: Final reports with documentation of one or more dose reduction techniques (e.g., Au tomated exposure control, adjustment of the mA and/or kV according to patient size, use of iterative reconstruction technique) 2010 [employer]- All Rights Reserved Reading location - IP/workstation name: [email or web address]
[2018-03-02] MEDS: METOPROLOL SUCCINATE 25 MG TAB.SR.24H PO SCH ×2 (07:01→18:25)
[2018-03-02] MEDS: BUSPIRONE HCL 10 MG TABLET PO SCH ×2 (08:27→23:21)
[2018-03-02] MEDS ORDERED: POTASSIUM CHLORIDE 20 MEQ/15 ML UDCUP PO ONE (09:23)
--- NOTE | 2018-03-02 09:51 | ER Document Report ---
Doctor's Note Notes: 03/02/18 09:50 Patient evaluated and is in no acute distress. She was sleeping but woke easily to verbal stimuli. She has no complaints currently. She knows her name and that we just had Carley but was unable to tell me the year, month, or location. She believes she was in her home although she could tell that it did not look like her home. Patient has dementia and is unable to care for herself. Currently aids social worker is working on placement in snf facility. Final disposition pending aids social worker.
[2018-03-02] MEDS: DIVALPROEX SODIUM 250 MG TAB.SR.24H PO SCH ×2 (10:14→18:25)
[2018-03-02] MEDS ORDERED: TUBERCULIN,PURIF.PROT.DERIV. 5 TU/0.1 ML TEST 1 ML VIAL ID ONE (16:30)
[2018-03-03] MEDS: METOPROLOL SUCCINATE 25 MG TAB.SR.24H PO SCH ×2 (06:44→17:15)
[2018-03-03] MEDS: BUSPIRONE HCL 10 MG TABLET PO SCH ×2 (07:49→22:31)
[2018-03-03] MEDS: DIVALPROEX SODIUM 250 MG TAB.SR.24H PO SCH ×2 (09:18→17:16)
[2018-03-03] MEDS ORDERED: PSYLLIUM SEED-SF 5.85 GM PACKET PO PRN (10:15)
--- NOTE | 2018-03-03 10:15 | ER Document Report ---
Doctor's Note Notes: 03/03/18 10:09 Rounds: Chart reviewed and patient interviewed. She says she has abdominal pain and feels its constipation. Patient is being evaluated before dementia and bipolar disorder with altered mental status and hallucinations. Her current medications are BuSpar and Depakote. Vital signs are all essentially normal. Abdomen is soft and nontender to my examination. Patient's potassium was low at 2.9 and she is been given some potassium to take, but other labs were essentially normal. She had a urinalysis that was repeated and the repeat urine was clean. We will give additional potassium. Depakote level is 58.4. Patient appears to be medically stable for transfer or discharge. Plans are to place patient in an extended living facility. I will also give the patient some stool softener and milk of magnesia. Nicol Gonzáles MD
[2018-03-03] MEDS ORDERED: POTASSIUM CHLORIDE 10 MEQ CAPSULE.ER PO ONE (10:17)
[2018-03-03] MEDS: POLYETHYLENE GLYCOL 3350 POWDER 17 GM/1 PACKET PO SCH (10:23)
[2018-03-03] MEDS: MAGNESIUM HYDROXIDE SUSP 30 ML UDCUP PO SCH ×2 (10:23→17:15)
[2018-03-03] MEDS ORDERED: LOPERAMIDE HCL 2 MG CAPSULE PO ONE (23:41)
[2018-03-04] MEDS ORDERED: TRAZODONE HCL 50 MG TABLET PO ONE (01:21)
[2018-03-04] MEDS: METOPROLOL SUCCINATE 25 MG TAB.SR.24H PO SCH ×2 (06:40→17:22)
[2018-03-04] MEDS: BUSPIRONE HCL 10 MG TABLET PO SCH (08:11)
--- NOTE | 2018-03-04 11:02 | RADIOLOGY REPORT (SQ) ---
EXAM DESCRIPTION: CT ABD/PELVIS NO ORAL OR IV COMPLETED DATE/TIME: 12/12/2016 REASON FOR STUDY: "Constipation", vomiting COMPARISON: None. TECHNIQUE: CT scan of the abdomen and pelvis performed without intravenous or oral contrast. Images reviewed with lung, soft tissue, and bone windows. Reconstructed coronal and sagittal MPR images revi ewed. All images stored on PACS. All CT scanners at this facility use dose modulation, iterative reconstruction, and/or weight based d osing when appropriate to reduce radiation dose to as low as reasonably achievable (ALARA). [facility]: Dose Right [facility]: CareDose [facility]: Dose Right [facility]: Teradose 4D [facility]: [employer] RADIATION DOSE: CT Rad equipment meets quality standard of care and radiation dose reduction techniq ues were employed. CTDIvol: 5.5 mGy. DLP: 294 mGy-cm.mGy. LIMITATIONS: None. FINDINGS: LOWER CHEST: Enlarged heart. Prior median sternotomy. No acute lung abnormality. NON-CONTRASTED LIVER, SPLEEN, ADRENALS: Evaluation limited by lack of IV contrast. No identified sign ificant masses. PANCREAS: No masses. No peripancreatic inflammatory changes. GALLBLADDER: Surgically absent. RIGHT KIDNEY AND URETER: No suspicious masses. Assessment limited by lack of IV contrast. No signif icant calcifications. No hydronephrosis or hydroureter. LEFT KIDNEY AND URETER: No suspicious masses. Assessment limited by lack of IV contrast. Punctate n onobstructing left renal stones, stable. No hydronephrosis or hydroureter. AORTA AND RETROPERITONEUM: Aortoiliac atherosclerosis. No discrete aneurysm. BOWEL AND PERITONEAL CAVITY: No evidence of intestinal obstruction. No discrete focal bowel wall thi ckening. Small volume ascites. No free intraperitoneal gas. APPENDIX: Surgically absent. PELVIS, BLADDER, AND ABDOMINAL WALL:No focal bladder wall thickening. Calcified leiomyoma. No discr ete adnexal masses. BONES: No acute bony abnormality. No suspicious osseous lesions. OTHER: No other significant finding. IMPRESSION: Small volume ascites. No additional evidence of acute intra-abdominal/pelvic process. COMMENT: Quality ID # [id number]: Final reports with documentation of one or more dose reduction techniques (e.g., Automated exposure control, adjustment of the mA and/or kV according to patient size, use of iterative reconstruction technique) TECHNICAL DOCUMENTATION: JOB ID: [id number]- All Rights Reserved Reading location - IP/workstation name: [email or web address]
[2018-03-04 11:07] LABS: APPEARANCE,URINE SLIGHTLY-CLOUDY; BILIRUBIN,URINE NEGATIVE (NEGATIVE); GLUCOSE, URINE NEGATIVE (NEGATIVE); KETONES,URINE TRACE mg/dL (NEGATIVE); LEUKOCYTE ESTERASE,URINE NEGATIVE (NEGATIVE); NITRITE,URINE NEGATIVE (NEGATIVE); PROTEIN,URINE >=500 mg/dL (NEGATIVE); URINE SPECIFIC GRAVITY 1.016
[2018-03-04 11:08] LABS: COLOR,URINE DARK YELLOW
[2018-03-04 11:56] LABS: HEMATOCRIT 44.7 % (36.0-47.0); HEMOGLOBIN 14.4 g/dL (12.0-15.5); MEAN CORPUSCULAR HEMOGLOBIN 25.3 pg (27.0-33.4); MEAN CORPUSCULAR HGB CONC 32.3 g/dL (32.0-36.0); MEAN CORPUSCULAR VOLUME 78 fl (80-97); PLATELET COUNT 284 10^3/uL (150-450); RED CELL DISTRIBUTION WIDTH 20.3 % (11.5-14.0); WHITE BLOOD COUNT 8.4 10^3/uL (4.0-10.5)
[2018-03-04] MEDS ORDERED: REGADENOSON INJ 0.4 MG/5 ML DISP.SYRIN IV ONE (12:09)
[2018-03-04 12:10] LABS: ALANINE AMINOTRANSFERASE 16 U/L (9-52); ALBUMIN 4.5 g/dL (3.5-5.0); ALKALINE PHOSPHATASE 187 U/L (38-126); ANION GAP 16 (5-19); ASPARTATE AMINO TRANSFERASE 106 U/L (14-36); BILIRUBIN,DIRECT 2.2 mg/dL (0.0-0.4); BILIRUBIN,TOTAL 3.3 mg/dL (0.2-1.3); BLOOD UREA NITROGEN 20 mg/dL (7-20); CALCIUM 9.7 mg/dL (8.4-10.2); CARBON DIOXIDE 30 mmol/L (22-30); CHLORIDE 97 mmol/L (98-107); GLUCOSE 148 mg/dL (75-110); LIPASE 52.8 U/L (23-300); SODIUM 143.3 mmol/L (137-145); TOTAL PROTEIN 9.8 g/dL (6.3-8.2)
[2018-03-04] MEDS ORDERED: ONDANSETRON HCL INJ/PF 4 MG/2 ML SDV IV ONE (12:10)
[2018-03-04 12:23] LABS: ABSOLUTE LYMPHOCYTES# (MANUAL) 2.9 10^3/uL (0.5-4.7); ABSOLUTE MONOCYTES # (MANUAL) 0.5 10^3/uL (0.1-1.4); BASOPHILS % (MANUAL) 1 % (0-2); EOSINOPHILS % (MANUAL) 0 % (0-6); LYMPHOCYTES % (MANUAL) 34 % (13-45); MONOCYTES % (MANUAL) 6 % (3-13); SEGMENTED NEUTROPHILS % (MAN) 59 % (42-78); TOTAL CELLS COUNTED 100
[2018-03-04 12:24] LABS: ANISOCYTOSIS 2+; CREATINE KINASE MB 2.03 ng/mL (<4.55); HYPOCHROMASIA SLIGHT; PLATELET COMMENT ADEQUATE; POLYCHROMASIA SLIGHT; TARGET CELLS SLIGHT
[2018-03-04 12:26] LABS: POTASSIUM 4.4 mmol/L (3.6-5.0)
[2018-03-04 12:30] LABS: TROPONIN I 0.055 ng/mL
--- NOTE | 2018-03-04 12:51 | ER Document Report ---
Doctor's Note Notes: 03/04/18 12:47 Rounds: Patient has been moved from positive for to bed #19 for closer assessment. Patient has been here for almost a week. She is been awaiting placement. Nursing staff reported concerns that patient is not doing as well as she was. They said that she appeared to be less energetic, unable to walk normally, poor color, and not as talkative. She also complains of chest pain. I reassessed the patient. Her vital signs are all normal. She can stand on command but is unsteady on her feet. She can also follow commands of getting out of the bed and getting back into the bed. She answers questions appropriately, no she is in the hospital. Says that she continues to have some intermittent chest pains. I repeated labs and her CBC is normal. Her chemistries are all essentially normal with exception her troponin is 0.055, indeterminate. Her EKG does not show any acute changes, certainly no evidence of STEMI.
[2018-03-04] MEDS ORDERED: IPRATROPIUM/ALBUTEROL 0.5-2.5 MG/3 ML AMPUL NEB PRN (14:56)
[2018-03-04] MEDS ORDERED: ONDANSETRON HCL INJ/PF 4 MG/2 ML SDV IV PRN (14:56)
[2018-03-04] MEDS ORDERED: GLUCAGON,HUMAN RECOMB 1 MG INJ IM PRN (15:32)
[2018-03-04] MEDS ORDERED: DEXTROSE 40% GEL 15 GM TUBE PO PRN ×2 (15:32)
[2018-03-04] MEDS ORDERED: DEXTROSE 50%-WATER 25 GM/50 ML DISP.SYRIN IV PRN ×2 (15:32)
--- NOTE | 2018-03-04 15:32 | PDOC H&P ---
History of Present Illness Admission Date/PCP: TREVON SKAGGS PA-C History of Present Illness: CHARLEY SHERMAN is a 57 year old female patient with past medical history of schizoaffective disorder, hypertension, type 2 diabetes mellitus, hyperlipidemia bipolar disorder, dementia, coronary artery disease status post coronary artery bypass graft, COPD and medical noncompliance brought by family members with chief complaint of altered mental status and hallucination. Since patient has cognitive impairment she is not able to give any meaningful history. Brief history is obtained from ER attending note and medical records. Per ER attending note, patient is hearing voices that tell her she is going to and seeing animals that are not there. Her blood works are unremarkable except an episode of hypokalemia which is corrected. Of note patient has been at ER for the last 6 days. Psych consultation was made and they stated "patient is psychiatrically clear from acute psychiatric services as she is no longer at risk of harm to self or others". Patient reports this her primary concern as falling frequently. Due to her schizophrenia and dementia patient is not able t o care for herself per patient and her family as she is falling frequently, does not take her medication as directed resulting in frequent psychotic episodes and is not eating regularly/losing weight. This morning patient reevaluated by Dr. Gonzáles and patient complaints chest pain and her troponin first test increased to 0.055. The hospitalist service requested to admit this patient. Past Medical History Cardiac Medical History: Reports: Coronary Artery Disease, Myocardial Infarction - x2, Hyperlipidema, Hypertension Pulmonary Medical History: Reports: Bronchitis, Chronic Obstructive Pulmonary Disease (COPD) Endocrine Medical History: Reports: Diabetes Mellitus Type 2 GI Medical History: Reports: Gastroesophageal Reflux Disease Psychiatric Medical History: Reports: Bipolar Disorder, Depression, Schizoaffective Disorder Past Surgical History Past Surgical History: Reports: Cardiac Catheterization, Cholecystectomy, Coronary Artery Bypass Graft - September 2016, Coronary Stent - x2, Tonsillectomy, Tubal Ligation, Vascular Surgery Social History Smoking Status: Current Every Day Smoker Frequency of Alcohol Use: None Hx Recreational Drug Use: No Drugs: None Hx Prescription Drug Abuse: No - Advance Directive Resuscitation Status: Full Code Family History Family History: Reviewed & Not Pertinent, CAD - Extensive heart disease in both parents and brother with brother dying from complications of cardiac stent placement Parental Family History Reviewed: Yes Children Family History Reviewed: Yes Sibling(s) Family History Reviewed.: Yes Medication/Allergy Home Medications: Insulin Glargine,Hum.rec.anlog [Lantus Insulin 100 Unit/mL] 40 units SQ QHS 03/02/18 Metoprolol Tartrate [Lopressor 25 mg Tablet] 12.5 mg PO Q12 03/02/18 Nicotine [Nicoderm 21 mg/24 Hr Transderm Patch] 1 patch TOP DAILY 03/02/18 Ondansetron HCl [Zofran 4 mg Tablet] 4 mg PO Q12HP PRN 03/02/18 Pantoprazole Sodium [Protonix] 40 mg PO DAILY 03/02/18 Paroxetine HCl [Paxil] 40 mg PO DAILY 03/02/18 Polyethylene Glycol 3350 [Miralax Powder 17 gm/Packet] 17 gm PO DAILY 03/02/18 Quetiapine Fumarate [Seroquel] 200 mg PO QAM 03/02/18 Allergies/Adverse Reactions: haloperidol [From Haldol] Allergy (Verified 02/26/18 10:31) haloperidol lactate [From Haldol] Allergy (Verified 02/26/18 10:31) Review of Systems ROS unobtainable: Due to mental status Physical Exam Vital Signs: Temp Pulse Resp BP Pulse Ox 98.0 F 67 16 157/101 H 95 03/04/18 07:28 03/04/18 08:48 03/04/18 08:48 03/04/18 08:48 03/04/18 08:48 Intake & Output 03/03/18 03/04/18 03/05/18 06:59 06:59 06:59 Weight 62.5 kg General appearance: PRESENT: no acute distress Head exam: PRESENT: atraumatic, normocephalic Mouth exam: PRESENT: moist Neck exam: ABSENT: carotid bruit, JVD, lymphadenopathy, thyromegaly Respiratory exam: PRESENT: clear to auscultation ailyn. ABSENT: rales, rhonchi, wheezes Cardiovascular exam: PRESENT: RRR. ABSENT: diastolic murmur, rubs, systolic murmur GI/Abdominal exam: PRESENT: normal bowel sounds, soft. ABSENT: distended, guarding, mass, organolmegaly, rebound, tenderness Neurological exam: PRESENT: alert, altered Psychiatric exam: PRESENT: agitated, depressed Results Laboratory Results: 03/04/18 11:43 03/04/18 11:43 03/04/18 03/04/18 03/04/18 10:40 11:43 11:43 WBC 8.4 RBC 5.70 H Hgb 14.4 Hct 44.7 MCV 78 L MCH 25.3 L MCHC 32.3 RDW 20.3 H Plt Count 284 Seg Neutrophils % Not Reportable Lymphocytes % Not Reportable Monocytes % Not Reportable Eosinophils % Not Reportable Basophils % Not Reportable Absolute Neutrophils Not Reportable Absolute Lymphocytes Not Reportable Absolute Monocytes Not Reportable Absolute Eosinophils Not Reportable Absolute Basophils Not Reportable Sodium 143.3 Potassium 4.4 Chloride 97 L Carbon Dioxide 30 Anion Gap 16 BUN 20 Creatinine 1.23 Est GFR ( Amer) 54 L Est GFR (Non-Af Amer) 45 L Glucose 148 H Calcium 9.7 Total Bilirubin 3.3 H AST 106 H ALT 16 Alkaline Phosphatase 187 H Total Protein 9.8 H Albumin 4.5 Lipase 52.8 Urine Color DARK YELLOW Urine Appearance SLIGHTLY-CLOUDY Urine pH 5.0 Ur Specific [place] 1.016 Urine Protein >=500 H Urine Glucose (UA) NEGATIVE Urine Ketones TRACE H Urine Blood NEGATIVE Urine Nitrite NEGATIVE Ur Leukocyte Esterase NEGATIVE Urine WBC (Auto) 3 Urine RBC (Auto) 1 02/28/18 03/01/18 03/01/18 21:25 01:45 08:51 CK-MB (CK-2) Troponin I 0.069 0.063 0.068 03/04/18 11:43 CK-MB (CK-2) 2.03 Troponin I 0.055 Impressions: Head CT 03/01/18 18:50 IMPRESSION: MILD CHRONIC CHANGES OF ATROPHY AND MICROVASCULAR ISCHEMIA. 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 NO ACUTE PROCESS. EVIDENCE OF ACUTE STROKE: NO. Abdomen/Pelvis CT 03/04/18 10:32 IMPRESSION: Small volume ascites. No additional evidence of acute intra-abdomi nal/pelvic process. Assessment & Plan - Diagnosis (1) Chest pain Qualifiers: Chest pain type: other chest pain Qualified Code(s): R07.89 - Other chest pain; R07.8 - Other chest pain Is this a current diagnosis for this admission?: Yes Plan: Since patient has multiple cardiac risk factors it is appropriate to observe her to rule out acute coronary syndrome. We will trend cardiac enzymes and cardiac stress test in the morning. (2) Bipolar 1 disorder, depressed Is this a current diagnosis for this admission?: Yes Plan: Per psych team (3) CAD (coronary artery disease) Qualifiers: Coronary Disease-Associated Artery/Lesion type: unspecified vessel or lesion type [place] vs. transplanted heart: tribe heart Associated angina: with unspecified angina Qualified Code(s): I25.119 - Atherosclerotic heart disease of tribe coronary artery with unspecified angina pectoris Is this a current diagnosis for this admission?: Yes Plan: We will continue her home medications. (4) HTN (hypertension) Qualifiers: Hypertension type: essential hypertension Qualified Code(s): I10 - Essential (primary) hypertension Is this a current diagnosis for this admission?: Yes Plan: Continue home medication (5) Schizophrenia Qualifiers: Schizophrenia type: unspecified Qualified Code(s): F20.9 - Schizophrenia, unspecified Is this a current diagnosis for this admission?: Yes Plan: Management by psych team (6) Hypothyroidism Qualifiers: Hypothyroidism type: acquired Qualified Code(s): E03.9 - Hypothyroidism, unspecified Is this a current diagnosis for this admission?: Yes Plan: Continue Synthroid (7) Type 2 diabetes mellitus Is this a current diagnosis for this admission?: Yes Plan: We will continue her home medication and put her on sliding scale.
[2018-03-04] MEDS: MAGNESIUM HYDROXIDE SUSP 30 ML UDCUP PO SCH ×2 (17:07→18:00)
[2018-03-04] MEDS: POLYETHYLENE GLYCOL 3350 POWDER 17 GM/1 PACKET PO SCH (17:07)
[2018-03-04] MEDS: DIVALPROEX SODIUM 250 MG TAB.SR.24H PO SCH ×2 (17:07→18:05)
[2018-03-04] MEDS: ENOXAPARIN SODIUM INJ 40 MG/0.4 ML DISP.SYRIN SUBCUT SCH (17:23)
[2018-03-04] MEDS: FAMOTIDINE 20 MG TABLET PO SCH (22:20)
--- NOTE | 2018-03-04 23:01 | EKG REPORT ---
SEVERITY:- ABNORMAL ECG - SINUS RHYTHM NONSPECIFIC INTRAVENTRICULAR CONDUCTION DELAY INFERIOR INFARCT, AGE INDETERMINATE CONSIDER ANTERIOR INFARCT LATERAL LEADS ARE ALSO INVOLVED : Confirmed by: Smita Luque MD 04-Mar-2018 23:00:24
[2018-03-05] MEDS: METOPROLOL SUCCINATE 25 MG TAB.SR.24H PO SCH (05:36)
[2018-03-05 09:09] LABS: ALANINE AMINOTRANSFERASE 41 U/L (9-52); ALBUMIN 3.1 g/dL (3.5-5.0); ALKALINE PHOSPHATASE 137 U/L (38-126); ANION GAP 12 (5-19); ASPARTATE AMINO TRANSFERASE 100 U/L (14-36); BILIRUBIN,DIRECT 1.5 mg/dL (0.0-0.4); BILIRUBIN,TOTAL 2.1 mg/dL (0.2-1.3); BLOOD UREA NITROGEN 24 mg/dL (7-20); CALCIUM 9.1 mg/dL (8.4-10.2); CARBON DIOXIDE 27 mmol/L (22-30); CHLORIDE 102 mmol/L (98-107); GLUCOSE 92 mg/dL (75-110); POTASSIUM 4.2 mmol/L (3.6-5.0); SODIUM 141.4 mmol/L (137-145); TOTAL PROTEIN 7.2 g/dL (6.3-8.2)
[2018-03-05] MEDS: FAMOTIDINE 20 MG TABLET PO SCH ×2 (12:19→22:54)
[2018-03-05] MEDS: POLYETHYLENE GLYCOL 3350 POWDER 17 GM/1 PACKET PO SCH (12:19)
[2018-03-05] MEDS: MAGNESIUM HYDROXIDE SUSP 30 ML UDCUP PO SCH ×2 (12:19→18:04)
--- NOTE | 2018-03-05 12:19 | PDOC PROGRESS REPORT ---
Subjective Progress Note for:: 03/05/18 Subjective:: This is 57 years old female patient who looks older than her stated age initially brought for altered mental status, audio and visual hallucination. Patient has underlying she is a affective disorder and bipolar disorder. She has been evaluated by psych and she is released from their service since patient is not danger for herself or others. Yesterday patient started to have a chest pain and she has also mildly increased troponin. This morning I seen patient resting in bed she looks somewhat sleepy. Vital signs and blood works are within normal limits. Reason For Visit: CHEST PAIN,AUDIOVISUAL HALLUCINATION Physical Exam Vital Signs: Temp Pulse Resp BP Pulse Ox 97.5 F 58 L 14 139/78 H 100 03/05/18 11:42 03/05/18 11:42 03/05/18 11:42 03/05/18 11:42 03/05/18 11:42 Intake & Output 03/04/18 03/05/18 03/06/18 06:59 06:59 06:59 Weight 62.5 kg 64 kg General appearance: PRESENT: no acute distress Head exam: PRESENT: atraumatic Mouth exam: PRESENT: dry mucosa Neck exam: ABSENT: carotid bruit, JVD, lymphadenopathy, thyromegaly Respiratory exam: PRESENT: clear to auscultation ailyn. ABSENT: rales, rhonchi, wheezes Pulses: PRESENT: normal dorsalis pedis pul GI/Abdominal exam: PRESENT: normal bowel sounds, soft. ABSENT: distended, guarding, mass, organolmegaly, rebound, tenderness Neurological exam: PRESENT: alert, awake Results Laboratory Results: 03/04/18 11:43 03/05/18 03:10 03/04/18 03/05/18 03/05/18 11:43 03:10 03:10 Sodium 143.3 141.4 Potassium 4.4 4.2 Chloride 97 L 102 Carbon Dioxide 30 27 Anion Gap 16 12 BUN 20 24 H Creatinine 1.23 1.19 Est GFR ( Amer) 54 L 56 L Est GFR (Non-Af Amer) 45 L 46 L Glucose 148 H 92 Calcium 9.7 9.1 Total Bilirubin 3.3 H 2.1 H AST 106 H 100 H ALT 16 41 Alkaline Phosphatase 187 H 137 H Total Protein 9.8 H 7.2 Albumin 4.5 3.1 L Lipase 52.8 TSH 4.60 02/28/18 03/01/18 03/01/18 21:25 01:45 08:51 CK-MB (CK-2) Troponin I 0.069 0.063 0.068 03/04/18 03/04/18 03/04/18 11:43 15:30 20:48 CK-MB (CK-2) 2.03 Troponin I 0.055 0.048 0.044 03/05/18 03:10 CK-MB (CK-2) Troponin I 0.063 Impressions: Head CT 03/01/18 18:50 IMPRESSION: MILD CHRONIC CHANGES OF ATROPHY AND MICROVASCULAR ISCHEMIA. 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 NO ACUTE PROCESS. EVIDENCE OF ACUTE STROKE: NO. Abdomen/Pelvis CT 03/04/18 10:32 IMPRESSION: Small volume ascites. No additional evidence of acute intra- abdominal/pelvic process. Assessment & Plan - Diagnosis (1) Chest pain Qualifiers: Chest pain type: other chest pain Qualified Code(s): R07.89 - Other chest pain; R07.8 - Other chest pain Is this a current diagnosis for this admission?: Yes Plan: Since patient has multiple cardiac risk factors it is appropriate to observe her to rule out acute coronary syndrome. We will trend cardiac enzymes and cardiac stress test in the morning. (2) Bipolar 1 disorder, depressed Is this a current diagnosis for this admission?: Yes Plan: Per psych team (3) CAD (coronary artery disease) Qualifiers: Coronary Disease-Associated Artery/Lesion type: unspecified vessel or lesion type [place] vs. transplanted heart: [place] heart Associated angina: with unspecified angina Qualified Code(s): I25.119 - Atherosclerotic heart disease of [place] coronary artery with unspecified angina pectoris Is this a current diagnosis for this admission?: Yes Plan: We will continue her home medications. (4) HTN (hypertension) Qualifiers: Hypertension type: essential hypertension Qualified Code(s): I10 - Essential (primary) hypertension Is this a current diagnosis for this admission?: Yes Plan: Continue home medication (5) Schizophrenia Qualifiers: Schizophrenia type: unspecified Qualified Code(s): F20.9 - Schizophrenia, unspecified Is this a current diagnosis for this admission?: Yes Plan: Management by psych team (6) Hypothyroidism Qualifiers: Hypothyroidism type: acquired Qualified Code(s): E03.9 - Hypothyroidism, unspecified Is this a current diagnosis for this admission?: Yes Plan: Continue Synthroid (7) Type 2 diabetes mellitus Is this a current diagnosis for this admission?: Yes Plan: We will continue her home medication and put her on sliding scale.
[2018-03-05] MEDS: ENOXAPARIN SODIUM INJ 40 MG/0.4 ML DISP.SYRIN SUBCUT SCH (12:20)
[2018-03-05] MEDS: DIVALPROEX SODIUM 250 MG TAB.SR.24H PO SCH ×2 (12:20→18:03)
[2018-03-06] MEDS: METOPROLOL SUCCINATE 25 MG TAB.SR.24H PO SCH ×2 (06:43→17:32)
--- NOTE | 2018-03-06 11:45 | PDOC PROGRESS REPORT ---
Subjective Progress Note for:: 03/06/18 Subjective:: Patient seen while she is resting in bed. She is awake alert. No new complaints. Patient scheduled this morning for cardiac stress test. Reason For Visit: CHEST PAIN,AUDIOVISUAL HALLUCINATION Physical Exam Vital Signs: Temp Pulse Resp BP Pulse Ox 97.3 F 54 L 14 138/72 H 97 03/06/18 07:26 03/06/18 07:26 03/06/18 07:26 03/06/18 07:26 03/06/18 07:26 Intake & Output 03/05/18 03/06/18 03/07/18 06:59 06:59 06:59 Weight 64 kg 63.8 kg General appearance: PRESENT: no acute distress Head exam: PRESENT: atraumatic Neck exam: ABSENT: carotid bruit, JVD, lymphadenopathy, thyromegaly Respiratory exam: PRESENT: clear to auscultation ailyn. ABSENT: rales, rhonchi, wheezes Cardiovascular exam: PRESENT: RRR. ABSENT: diastolic murmur, rubs, systolic murmur Results Laboratory Results: 03/04/18 11:43 03/05/18 03:10 02/28/18 03/01/18 03/01/18 21:25 01:45 08:51 CK-MB (CK-2) Troponin I 0.069 0.063 0.068 03/04/18 03/04/18 03/04/18 11:43 15:30 20:48 CK-MB (CK-2) 2.03 Troponin I 0.055 0.048 0.044 03/05/18 03:10 CK-MB (CK-2) Troponin I 0.063 Impressions: Head CT 03/01/18 18:50 IMPRESSION: MILD CHRONIC CHANGES OF ATROPHY AND MICROVASCULAR ISCHEMIA. 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 NO ACUTE PROCESS. EVIDENCE OF ACUTE STROKE: NO. Abdomen/Pelvis CT 03/04/18 10:32 IMPRESSION: Small volume ascites. No additional evidence of acute intra- abdominal/pelvic process. Assessment & Plan - Diagnosis (1) Chest pain Qualifiers: Chest pain type: other chest pain Qualified Code(s): R07.89 - Other chest pain; R07.8 - Other chest pain Is this a current diagnosis for this admission?: Yes Plan: Since patient has multiple cardiac risk factors it is appropriate to observe her to rule out acute coronary syndrome. We will trend cardiac enzymes and cardiac stress test in the morning. (2) Bipolar 1 disorder, depressed Is this a current diagnosis for this admission?: Yes Plan: Per psych team (3) CAD (coronary artery disease) Qualifiers: Coronary Disease-Associated Artery/Lesion type: unspecified vessel or lesion type [place] vs. transplanted heart: [place] heart Associated angina: with unspecified angina Qualified Code(s): I25.119 - Atherosclerotic heart disease of [place] coronary artery with unspecified angina pectoris Is this a current diagnosis for this admission?: Yes Plan: We will continue her home medications. (4) HTN (hypertension) Qualifiers: Hypertension type: essential hypertension Qualified Code(s): I10 - Essential (primary) hypertension Is this a current diagnosis for this admission?: Yes Plan: Continue home medication (5) Schizophrenia Qualifiers: Schizophrenia type: unspecified Qualified Code(s): F20.9 - Schizophrenia, unspecified Is this a current diagnosis for this admission?: Yes Plan: Management by psych team (6) Hypothyroidism Qualifiers: Hypothyroidism type: acquired Qualified Code(s): E03.9 - Hypothyroidism, unspecified Is this a current diagnosis for this admission?: Yes Plan: Continue Synthroid (7) Type 2 diabetes mellitus Is this a current diagnosis for this admission?: Yes
[2018-03-06] MEDS: FAMOTIDINE 20 MG TABLET PO SCH ×2 (12:11→22:20)
[2018-03-06] MEDS: DIVALPROEX SODIUM 250 MG TAB.SR.24H PO SCH ×2 (12:12→17:31)
[2018-03-06] MEDS: ENOXAPARIN SODIUM INJ 40 MG/0.4 ML DISP.SYRIN SUBCUT SCH (12:12)
[2018-03-06] MEDS: MAGNESIUM HYDROXIDE SUSP 30 ML UDCUP PO SCH ×2 (12:12→17:32)
[2018-03-06] MEDS: POLYETHYLENE GLYCOL 3350 POWDER 17 GM/1 PACKET PO SCH (12:19)
[2018-03-06] MEDS ORDERED: HALOPERIDOL LACTATE INJ 5 MG/1 ML VIAL IM ONE (15:15)
[2018-03-06] MEDS ORDERED: LORAZEPAM INJ 2 MG/1 ML VIAL IV ONE (15:30)
--- NOTE | 2018-03-06 22:24 | XCELERA REPORT ---
[address] [address] Transthoracic Echocardiogram Report Name: CHARLEY SHERMAN Age: 57 yrs Gender: Female : 1960 Patient Status: Inpatient Patient Location: [address] [place] [address] Study Date: 03/06/2018 06:31 PM Procedure: A two-dimensional transthoracic echocardiogram with color flow and Doppler was performed. Study Quality: Poor. The study was technically difficult with many images being suboptimal in quality. Reason For Study: chf History: CHF. Ordering Physician: VALENTINO RAMAN Performed By: Hussain Grayson Interpretation Summary CHF The left ventricle is mildly dilated. There is normal left ventricular wall thickness. LV EF is 30% Left ventricular systolic function is severely reduced. There is severe global hypokinesis of the left ventricle. There is no thrombus. Paradoxical septal motion is consistent with right ventricular volume overload The right ventricle is mild to moderately dilated. The right ventricular systolic function is mildly reduced. The right atrium is mild to moderately dilated. The left atrium is mildly dilated. There is no evidence of mitral valve prolapse. There is no vegetation seen on the mitral valve. There is mild mitral stenosis There is a trace to mild amount of mitral regurgitation There is no aortic valvular vegetation. There is no aortic valve stenosis There is aortic sclerosis without aortic stenosis. There is no LVOT obstruction. No aortic regurgitation is present. There is no tricuspid stenosis. There is a moderate to severe amount of tricuspid regurgitation There is uner sampling of the TR jet,hence cannot asess RVSP. There is a moderate amount of pulmonic regurgitation There is no pulmonic valvular stenosis. The aortic root is normal size. There is no pericardial effusion. MMode/2D Measurements & Calculations RVDd: 3.6 cm LVIDd: 4.5 cm FS: 26.4 % Ao root diam: 2.3 cm IVSd: 0.89 cm LVIDs: 3.3 cm EDV(Teich): 92.3 ml Ao root area: 4.2 cm2 LVPWd: 1.2 cm ESV(Teich): 44.4 ml EF(Teich): 51.9 % LA dimension: 3.6 cm LVOT diam: 1.7 cm LVOT area: 2.1 cm2 Doppler Measurements & Calculations MV E max linwood: MV P1/2t max linwood: Ao V2 max: LV V1 max P.7 cm/sec 60.3 cm/sec 109.8 cm/sec 2.2 mmHg MV A max linwood: MV P1/2t: 156.3 msec Ao max PG: LV V1 max: 43.4 cm/sec 4.8 mmHg 74.0 cm/sec MV E/A: 1.4 MVA(P1/2t): 1.4 cm2 MV dec slope: DARIO(V,D): 1.4 cm2 113.0 cm/sec2 MV dec time: 0.34 sec MR max linwood: PA V2 max: PI end-d linwood: TR max linwood: 351.8 cm/sec 50.1 cm/sec 57.0 cm/sec 136.4 cm/sec MR max PG: PA max P.0 mmHg TR max P.5 mmHg 7.4 mmHg MV P1/2t-pr_phl: 156.3 msec Left Ventricle The left ventricle is mildly dilated. There is normal left ventricular wall thickness. LV EF is 30%. Left ventricular systolic function is severely reduced. There is severe global hypokinesis of the left ventricle. Paradoxical septal motion is consistent with right ventricular volume overload. There is no thrombus. Right Ventricle The right ventricle is mild to moderately dilated. The right ventricular systolic function is mildly reduced. Atria The right atrium is mild to moderately dilated. The left atrium is mildly dilated. Mitral Valve There is mild mitral annular calcification. There is no evidence of mitral valve prolapse. There is no vegetation seen on the mitral valve. There is mild mitral stenosis. There is a trace to mild amount of mitral regurgitation. Aortic Valve There is no aortic valvular vegetation. There is no aortic valve stenosis. There is aortic sclerosis without aortic stenosis. There is no LVOT obstruction. No aortic regurgitation is present. Tricuspid Valve There is no tricuspid stenosis. There is a moderate to severe amount of tricuspid regurgitation. There is uner sampling of the TR jet,hence cannot asess RVSP. Pulmonic Valve There is no pulmonic valvular stenosis. There is a moderate amount of pulmonic regurgitation. Great Vessels The aortic root is normal size. Effusions There is no pericardial effusion. : VALENTINO RAMAN > Ene, Smita
--- NOTE | 2018-03-06 23:03 | DRAGON STRESS TEST REPORT ---
Intravenous Lexiscan Cardiolite stress test using single photon emmision computerized tomography. Date of procedure: 03/06/2018. Ordering Provider: Dr. Rocha. Patient's status: In Patient. Indication: Chest pain in a patient with history of old myocardial infarction/coronary artery disease.. Coronary risk factors: Age, diabetes mellitus, hypertension, and dyslipidemia. Resting EKG: Sinus Rhythm. Old inferior and apical lateral ID. Stress EKG: No changes of ischemia. The patient has no chest pain or discomfort, and there were no arrhythmias. The patient after the IV Lexiscan had abdominal pain transiently, which subsided soon. There was no vomiting although the patient had nauseated at the time of abdominal pain. Reason for termination: Protocol. Conclusions: Normal EKG and hemodynamic response to IV Lexiscan. Nuclear data: At rest the patient was given 10.65 millicuries of technetium 99m sestamibi injected intravenously. As per protocol rest non gated SPECT images were obtained. Subsequently the patient was given intravenous Lexiscan at a dose of 0.4 mg in 5 mL intravenously, followed by flush with normal saline. Subsequently the stress dose of 30.4 millicuries of technetium 99m sestamibi was injected intravenously. As per protocol stress gated images were obtained. Nuclear interpretation: Review of images showed that this is a very poor quality study, with motion artifact, and liver and bowel contamination artifact of the inferior wall. Hence difficult to interpret. There is a perfusion defect which is mild involving the inferior wall in both the rest and stress images. This area has decreased motion contraction and thickening consistent with prior prior ID. There is a small area in the apical lateral wall which is a small area of perfusion defect in both rest and stress images. This small area is decreased motion contraction and thickening by gated study. The rest of the segments of the myocardium had normal perfusion at rest, and normal perfusion post stress with IV Lexiscan. The rest of the segments of the myocardium had normal thickening by gated study. The rest of the segments had global severe hypokinesis consistent with cardiomyopathy. T. I D. ratio was normal at 0.96. There is no transient ischemic dilatation of the left ventricle. Computer read rest, and stress left ventricular ejection fraction were 30 %, and 29 %, respectively. Conclusion: 1. There is no scintigraphic evidence of Lexiscan induced myocardial ischemia. 2. There is scintigraphic evidence of mild myocardial infarction/scar involving the inferior wall, and a small portion of the apical lateral wall 3. Reduced LV ejection fraction consistent with ischemic cardiomyopathy.. Recommendations: 1. Aggressive treatment of underlying coronary artery disease with statins, beta-blockers and aspirin and nitrates if no contraindication. 2. Check echocardiogram for LV ejection fraction correlation, and if indeed reduced would recommend maximizing anti-cardiomyopathy treatment with TIN or ARB agents along with beta-blockers, and if needed Lasix.. 3.Aggressive risk factor modification, and treating the underlying co- morbidities. Above findings were discussed with the attending physician who ordered the test. ELISE
[2018-03-07] MEDS: METOPROLOL SUCCINATE 25 MG TAB.SR.24H PO SCH (07:00)
[2018-03-07] MEDS: POLYETHYLENE GLYCOL 3350 POWDER 17 GM/1 PACKET PO SCH (10:10)
[2018-03-07] MEDS: MAGNESIUM HYDROXIDE SUSP 30 ML UDCUP PO SCH ×2 (10:10→18:05)
[2018-03-07] MEDS: FAMOTIDINE 20 MG TABLET PO SCH ×2 (10:11→22:43)
[2018-03-07] MEDS: DIVALPROEX SODIUM 250 MG TAB.SR.24H PO SCH ×2 (10:11→18:05)
[2018-03-07] MEDS: ENOXAPARIN SODIUM INJ 40 MG/0.4 ML DISP.SYRIN SUBCUT SCH (10:11)
[2018-03-07] MEDS: LISINOPRIL 10 MG TABLET PO SCH (12:21)
--- NOTE | 2018-03-07 12:56 | PDOC PROGRESS REPORT ---
Subjective Progress Note for:: 03/07/18 Subjective:: This is 57 years old female patient who looks older than her stated age initially brought for altered mental status, audio and visual hallucination. Patient has underlying she is a affective disorder and bipolar disorder. She has been evaluated by psych and she is released from their service since patient is not danger for herself or others. Yesterday patient started to have a chest pain and she has also mildly increased troponin. Her stress test reported as no evidence of reversible ischemia. Since patient is not able to take care of herself and family also states that there are no more able to take care of her patient is a candidate for residential placement. Reason For Visit: CHEST PAIN,AUDIOVISUAL HALLUCINATION Physical Exam Vital Signs: Temp Pulse Resp BP Pulse Ox 97.4 F 66 16 153/99 H 97 03/07/18 11:24 03/07/18 12:12 03/07/18 11:24 03/07/18 12:12 03/07/18 11:24 Intake & Output 03/06/18 03/07/18 03/08/18 06:59 06:59 06:59 Weight 64.3 kg General appearance: PRESENT: no acute distress Mouth exam: PRESENT: moist Teeth exam: PRESENT: dental caries Neck exam: ABSENT: carotid bruit, JVD, lymphadenopathy, thyromegaly Respiratory exam: PRESENT: clear to auscultation ailyn. ABSENT: rales, rhonchi, wheezes Neurological exam: PRESENT: alert, awake Results Laboratory Results: 03/04/18 11:43 03/05/18 03:10 02/28/18 03/01/18 03/01/18 21:25 01:45 08:51 CK-MB (CK-2) Troponin I 0.069 0.063 0.068 03/04/18 03/04/18 03/04/18 11:43 15:30 20:48 CK-MB (CK-2) 2.03 Troponin I 0.055 0.048 0.044 03/05/18 03:10 CK-MB (CK-2) Troponin I 0.063 Impressions: Head CT 03/01/18 18:50 IMPRESSION: MILD CHRONIC CHANGES OF ATROPHY AND MICROVASCULAR ISCHEMIA. 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 NO ACUTE PROCESS. EVIDENCE OF ACUTE STROKE: NO. Abdomen/Pelvis CT 03/04/18 10:32 IMPRESSION: Small volume ascites. No additional evidence of acute intra- abdominal/pelvic process. Assessment & Plan - Diagnosis (1) Ischemic cardiomyopathy EF 30% Is this a current diagnosis for this admission?: Yes Plan: Medical management and aggressive risk factor modification recommended (2) Chest pain Qualifiers: Chest pain type: other chest pain Qualified Code(s): R07.89 - Other chest pain; R07.8 - Other chest pain Is this a current diagnosis for this admission?: Yes Plan: Stress test negative for reversible ischemia (3) Bipolar 1 disorder, depressed Is this a current diagnosis for this admission?: Yes Plan: Per psych team (4) CAD (coronary artery disease) Qualifiers: Coronary Disease-Associated Artery/Lesion type: unspecified vessel or lesion type [place] vs. transplanted heart: [place] heart Associated angina: with unspecified angina Qualified Code(s): I25.119 - Atherosclerotic heart disease of [place] coronary artery with unspecified angina pectoris Is this a current diagnosis for this admission?: Yes Plan: We will continue her home medications. (5) HTN (hypertension) Qualifiers: Hypertension type: essential hypertension Qualified Code(s): I10 - Essential (primary) hypertension Is this a current diagnosis for this admission?: Yes Plan: Continue home medication (6) Schizophrenia Qualifiers: Schizophrenia type: unspecified Qualified Code(s): F20.9 - Schizophrenia, unspecified Is this a current diagnosis for this admission?: Yes Plan: Management by psych team (7) Hypothyroidism Qualifiers: Hypothyroidism type: acquired Qualified Code(s): E03.9 - Hypothyroidism, unspecified Is this a current diagnosis for this admission?: Yes Plan: Continue Synthroid (8) Type 2 diabetes mellitus Is this a current diagnosis for this admission?: Yes Plan: We will continue her home medication and put her on sliding scale.
--- NOTE | 2018-03-07 14:00 | Physician Advisory Note ---
Physician Advisor ProgressNote .: Pursuant to the plan for [facility], I have reviewed the medical record for this patient. Physician Advisor Statement: Please consider documenting, if you agree: 1. "chronic systolic CHF due to ischemic cardiomyopathy, EF 30%" [w/mod-sev TR, mod pulmonic regurg, evid of RV volume overload] 2. "frequent fall,s likely due to [orthostatic hypotension? cerebrovascular ischemia from atherosclerosis/hypotension/....? deconditioning/weakness? ... - Would a PT eval/tx consult cut down on worsening deconditioning/falls/agitation while she remains in hospital? 3. "hypoglycemia in a diabetic, suspect due to " 4. Ongoing clinical concerns/medical necessity: A. Any clinical reason related to pt's condition requiring stress test to be delayed 'til 03/06 instead of 03/05? (assumption will be it was logistical) B. Any concerns/needing caution r.e. need for beta-blockers/nitrates/ACEI/ASA/statins for #1 above while already bradycardic & having tendency to falls w/underlying cerebrovascular atherosclerosis? C. Concerns about her not even being able to receive the low dose beta campos ordered at present x 2-3 days due to bradycardia/hypotension? D. Concerns about her very widely varying BPs (ranging 115/64 - 177/102 x last 2-3 days) when receiving no BP meds, given above? E. Concern/need for close ongoing monitoring w/active titration of meds for heart/BPs given above? 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 CP on 02/28 - trop Is all 0.06s, given NTG. Intermittent agitation noted, w/prolonged drowsiness after 2mg Ativan on 03/01. - On 03/04, approp'ly made Obs for acute CP w/indet trop Is of 0.055 -> 0.4s -> 0.063. Abd CT done due to "constipation, vomiting", & Miralax given. Later that PM, Immodium was ordered at request of nurse due to freq loose BMs all night w/agit & unsteady gait, eventually needing Rx to get sleep; subsequently developed acute CP w/inability to eat or verbalize c/o's as before. Stress test not done on 03/05; if this 2nd MN may have been "an avoidable delay" in CMS's eyes, it doesn't count towards Inpatient status. On 03/06, stress test showed no inducible ischemia, but prominent cardiomyopathy, with recommendations for aggressive statin/ASA/nitrate tx & consideration of ACEI, ECHO. ECHO done at 6:30pm. - Attending restarted pt's metoprolol 12.5mg q12 for cardiac tx, but this has been held since 03/05 AM due to persistent/recurrent bradycardia in the 40s-50s (HR was 60s-80s when pt first came in, possibly due to noncompliance w/tx). On 03/07, with metoprolol still being held due to BP/HR, attending starting lisinopril for CHF. If attending can document ongoing clinical concerns that have required pt to still be in hospital for something besides awaiting placement, she may be appropriate for change to Inpatient status. Thanks! CK
[2018-03-07] MEDS ORDERED: METOPROLOL SUCCINATE 25 MG TAB.SR.24H PO SCH (18:00)
[2018-03-07] MEDS: METOPROLOL SUCCINATE 50 MG TAB.SR.24H PO SCH (18:05)
[2018-03-07] MEDS: ATORVASTATIN CALCIUM 20 MG TABLET PO SCH (22:43)
[2018-03-08] MEDS ORDERED: METOPROLOL TARTRATE PF/INJ 5 MG/5 ML SDV IV ONE (01:00)
[2018-03-08] MEDS: METOPROLOL SUCCINATE 50 MG TAB.SR.24H PO SCH ×2 (06:46→18:26)
[2018-03-08] MEDS: POLYETHYLENE GLYCOL 3350 POWDER 17 GM/1 PACKET PO SCH (09:45)
[2018-03-08] MEDS: DIVALPROEX SODIUM 250 MG TAB.SR.24H PO SCH ×2 (09:46→18:26)
[2018-03-08] MEDS: FAMOTIDINE 20 MG TABLET PO SCH ×2 (09:46→23:00)
[2018-03-08] MEDS: LISINOPRIL 10 MG TABLET PO SCH (09:46)
[2018-03-08] MEDS: MAGNESIUM HYDROXIDE SUSP 30 ML UDCUP PO SCH ×2 (09:46→18:26)
[2018-03-08] MEDS: ENOXAPARIN SODIUM INJ 40 MG/0.4 ML DISP.SYRIN SUBCUT SCH (09:46)
--- NOTE | 2018-03-08 15:49 | PDOC PROGRESS REPORT ---
Subjective Progress Note for:: 03/08/18 Subjective:: No adverse events overnight. She has slept most of the day. Her nurse tells me that she slept most of the day yesterday. A couple of days ago her fentanyl patch dosage was cut in half. Apparently yesterday she was having some hallucinations but there have been no reports of this kind of behavior today. When I went in to see her she was sleeping on her BiPAP mask as she usually does. She did awaken to verbal command and was able to nod her head yes and no appropriately to questions, and she attempted to talk once but her speech at that time was inaudible. She was unable take her blood pressure medication this morning, but her nurse got her to wake up enough to take her blood pressure medication a couple of hours ago. Reason For Visit: CHEST PAIN,AUDIOVISUAL HALLUCINATION Physical Exam Vital Signs: Temp Pulse Resp BP Pulse Ox 97.5 F 84 14 162/110 H 94 03/08/18 12:28 03/08/18 12:28 03/08/18 12:28 03/08/18 12:28 03/08/18 12:28 Intake & Output 03/07/18 03/08/18 03/09/18 06:59 06:59 06:59 Intake Total 218 50 Output Total 1 Balance 217 50 Weight 64.3 kg 63.9 kg General appearance: PRESENT: no acute distress, disheveled Respiratory exam: PRESENT: clear to auscultation ailyn, symmetrical, unlabored. ABSENT: accessory muscle use, crackles, rhonchi, tachypnea, wheezes Cardiovascular exam: PRESENT: RRR, +S1, +S2 Vascular exam: PRESENT: normal capillary refill GI/Abdominal exam: PRESENT: normal bowel sounds, soft. ABSENT: distended, guarding, rebound, tenderness Extremities exam: ABSENT: clubbing, pedal edema Musculoskeletal exam: PRESENT: normal inspection. ABSENT: deformity Neurological exam: PRESENT: awake - Drowsy but arousable, oriented to person, other - She was too somnolent at this time to get much more information out of her to get much more information out of her Skin exam: PRESENT: dry, warm Results Laboratory Results: 03/04/18 11:43 03/05/18 03:10 02/28/18 03/01/18 03/01/18 21:25 01:45 08:51 CK-MB (CK-2) Troponin I 0.069 0.063 0.068 03/04/18 03/04/18 03/04/18 11:43 15:30 20:48 CK-MB (CK-2) 2.03 Troponin I 0.055 0.048 0.044 03/05/18 03:10 CK-MB (CK-2) Troponin I 0.063 Impressions: Head CT 03/01/18 18:50 IMPRESSION: MILD CHRONIC CHANGES OF ATROPHY AND MICROVASCULAR ISCHEMIA. 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 NO ACUTE PROCESS. EVIDENCE OF ACUTE STROKE: NO. Abdomen/Pelvis CT 03/04/18 10:32 IMPRESSION: Small volume ascites. No additional evidence of acute intra- abdominal/pelvic process. Assessment & Plan - Diagnosis (1) Ischemic cardiomyopathy EF 30% Is this a current diagnosis for this admission?: Yes Plan: She does not appear to be acutely exacerbated. Continue current medication regimen. (2) Bipolar 1 disorder, depressed Is this a current diagnosis for this admission?: Yes Plan: Continue Depakote (3) Chest pain Qualifiers: Chest pain type: precordial pain Qualified Code(s): R07.2 - Precordial pain Is this a current diagnosis for this admission?: Yes Plan: Stress test was negative (4) Hypothyroidism Qualifiers: Hypothyroidism type: acquired Qualified Code(s): E03.9 - Hypothyroidism, unspecified Is this a current diagnosis for this admission?: Yes Plan: Continue Synthroid (5) Somnolence Is this a current diagnosis for this admission?: Yes Plan: Her fentanyl patch was just decreased yesterday down to 25 mcg. She is probably still adjusting. She is somnolent today, but was reportedly even more so yesterday. Continue to monitor closely. (6) HTN (hypertension) Qualifiers: Hypertension type: essential hypertension Qualified Code(s): I10 - Essential (primary) hypertension Is this a current diagnosis for this admission?: Yes Plan: We were able to get her medications into her a little while ago. Some as needed IV hydralazine has been added. - Time Time Spent with patient: 15-24 minutes
[2018-03-08] MEDS: HYDRALAZINE HCL INJ/PF 20 MG/1 ML SDV IV PRN ×2 (16:16→22:49)
[2018-03-08] MEDS: ATORVASTATIN CALCIUM 20 MG TABLET PO SCH (23:00)
[2018-03-09] MEDS: METOPROLOL SUCCINATE 50 MG TAB.SR.24H PO SCH ×2 (07:04→17:24)
[2018-03-09] MEDS: FAMOTIDINE 20 MG TABLET PO SCH ×2 (09:30→21:29)
[2018-03-09] MEDS: ENOXAPARIN SODIUM INJ 40 MG/0.4 ML DISP.SYRIN SUBCUT SCH (09:30)
[2018-03-09] MEDS: LISINOPRIL 10 MG TABLET PO SCH (09:30)
[2018-03-09] MEDS: POLYETHYLENE GLYCOL 3350 POWDER 17 GM/1 PACKET PO SCH (09:30)
[2018-03-09] MEDS: DIVALPROEX SODIUM 250 MG TAB.SR.24H PO SCH ×2 (09:30→17:23)
[2018-03-09] MEDS: MAGNESIUM HYDROXIDE SUSP 30 ML UDCUP PO SCH ×2 (09:30→17:23)
[2018-03-09 10:23] LABS: ARTERIAL BLOOD BASE EXCESS 10.8 mmol/L; ARTERIAL BLOOD H2CO3 1.18 mmol/L (1.05-1.35); ARTERIAL BLOOD HCO3 33.9 mmol/L (20-24); ARTERIAL BLOOD O2 SATURATION 95.2 % (94-98); ARTERIAL BLOOD PCO2 39.2 mmHg (35-45); ARTERIAL BLOOD PH 7.56 (7.35-7.45); ARTERIAL BLOOD PO2 65.9 mmHg (80-100); ARTERIAL BLOOD TOTAL CO2 35.1 mmol/L (21-25)
[2018-03-09 10:25] LABS: ARTERIAL BLOOD FIO2 21%
[2018-03-09 10:37] LABS: ANION GAP 9 (5-19); BLOOD UREA NITROGEN 26 mg/dL (7-20); CALCIUM 9.1 mg/dL (8.4-10.2); CARBON DIOXIDE 33 mmol/L (22-30); CHLORIDE 101 mmol/L (98-107); GLUCOSE 145 mg/dL (75-110); POTASSIUM 4.5 mmol/L (3.6-5.0); SODIUM 143.1 mmol/L (137-145)
[2018-03-09] MEDS: ATORVASTATIN CALCIUM 20 MG TABLET PO SCH (21:29)
[2018-03-10] MEDS: METOPROLOL SUCCINATE 50 MG TAB.SR.24H PO SCH ×2 (05:58→17:13)
[2018-03-10] MEDS ORDERED: NORMAL SALINE 1000 ML 500 ML IV ONE (09:46)
[2018-03-10] MEDS: LISINOPRIL 10 MG TABLET PO SCH (10:01)
[2018-03-10] MEDS: POLYETHYLENE GLYCOL 3350 POWDER 17 GM/1 PACKET PO SCH (10:01)
[2018-03-10] MEDS: ENOXAPARIN SODIUM INJ 40 MG/0.4 ML DISP.SYRIN SUBCUT SCH (10:01)
[2018-03-10] MEDS: FAMOTIDINE 20 MG TABLET PO SCH ×2 (10:01→22:57)
[2018-03-10] MEDS: DIVALPROEX SODIUM 250 MG TAB.SR.24H PO SCH ×2 (10:01→17:13)
[2018-03-10] MEDS: MAGNESIUM HYDROXIDE SUSP 30 ML UDCUP PO SCH ×2 (10:19→17:13)
[2018-03-10] MEDS: NYSTATIN 500000 UNIT/5 ML UDCUP PO SCH ×4 (10:52→22:57)
--- NOTE | 2018-03-10 15:28 | PDOC PROGRESS REPORT ---
Subjective Progress Note for:: 03/10/18 Subjective:: No adverse events overnight. She is actually more awake today than she has been in several days. She is able to open her eyes to verbal command and she at least attempt to have a conversation with me, which is more than she is done in days. She was able to keep her eyes open and look around in the room without falling back to sleep. Reason For Visit: CHEST PAIN,AUDIOVISUAL HALLUCINATION Physical Exam Vital Signs: Temp Pulse Resp BP Pulse Ox 97.5 F 78 16 160/94 H 74 L 03/10/18 11:34 03/10/18 11:34 03/10/18 11:34 03/10/18 11:34 03/10/18 11:34 Intake & Output 03/09/18 03/10/18 03/11/18 06:59 06:59 06:59 Intake Total 100 0 0 Output Total 0 Balance 100 0 0 Weight 64.1 kg 63 kg General appearance: PRESENT: no acute distress, disheveled Respiratory exam: PRESENT: clear to auscultation ailyn, symmetrical, unlabored. ABSENT: accessory muscle use, crackles, rhonchi, tachypnea, wheezes Cardiovascular exam: PRESENT: RRR, +S1, +S2 Vascular exam: PRESENT: normal capillary refill GI/Abdominal exam: PRESENT: normal bowel sounds, soft. ABSENT: distended, guarding, rebound, tenderness Extremities exam: ABSENT: clubbing, pedal edema Musculoskeletal exam: PRESENT: normal inspection. ABSENT: deformity Neurological exam: PRESENT: awake, attempts to answer questions. Speech is more coherent today but she is still disoriented Skin exam: PRESENT: dry, warm Results Laboratory Results: 03/04/18 11:43 03/09/18 09:55 02/28/18 03/01/18 03/01/18 21:25 01:45 08:51 CK-MB (CK-2) Troponin I 0.069 0.063 0.068 03/04/18 03/04/18 03/04/18 11:43 15:30 20:48 CK-MB (CK-2) 2.03 Troponin I 0.055 0.048 0.044 03/05/18 03:10 CK-MB (CK-2) Troponin I 0.063 Impressions: Head CT 03/01/18 18:50 IMPRESSION: MILD CHRONIC CHANGES OF ATROPHY AND MICROVASCULAR ISCHEMIA. 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 NO ACUTE PROCESS. EVIDENCE OF ACUTE STROKE: NO. Abdomen/Pelvis CT 03/04/18 10:32 IMPRESSION: Small volume ascites. No additional evidence of acute intra- abdominal/pelvic process. Assessment & Plan - Diagnosis (1) Ischemic cardiomyopathy EF 30% Is this a current diagnosis for this admission?: Yes Plan: She does not appear to be acutely exacerbated. Continue current medication regimen. (2) Bipolar 1 disorder, depressed Is this a current diagnosis for this admission?: Yes Plan: Continue Depakote (3) Chest pain Qualifiers: Chest pain type: precordial pain Qualified Code(s): R07.2 - Precordial pain Is this a current diagnosis for this admission?: Yes Plan: Stress test was negative (4) Hypothyroidism Qualifiers: Hypothyroidism type: acquired Qualified Code(s): E03.9 - Hypothyroidism, unspecified Is this a current diagnosis for this admission?: Yes Plan: Continue Synthroid (5) Somnolence Is this a current diagnosis for this admission?: Yes Plan: This appears to be resolving. I am not entirely sure of its origin, but she is more awake and alert and interactive today than she has been in previous days. Would continue to withhold any sedating medications. (6) HTN (hypertension) Qualifiers: Hypertension type: essential hypertension Qualified Code(s): I10 - Essential (primary) hypertension Is this a current diagnosis for this admission?: Yes Plan: She has not been able to stay awake long enough take her blood pressure medicat ions in several days. Hopefully now that she is more awake, will be able to get her medications into her and see how her blood pressure response. - Time Time Spent with patient: 15-24 minutes
[2018-03-10] MEDS: ACETAMINOPHEN 325 MG TABLET PO PRN (16:20)
[2018-03-10] MEDS: ATORVASTATIN CALCIUM 20 MG TABLET PO SCH (22:57)
[2018-03-11] MEDS: METOPROLOL SUCCINATE 50 MG TAB.SR.24H PO SCH ×2 (06:07→17:17)
[2018-03-11] MEDS: POLYETHYLENE GLYCOL 3350 POWDER 17 GM/1 PACKET PO SCH (09:38)
[2018-03-11] MEDS: LISINOPRIL 10 MG TABLET PO SCH (09:38)
[2018-03-11] MEDS: DIVALPROEX SODIUM 250 MG TAB.SR.24H PO SCH ×2 (09:38→17:17)
[2018-03-11] MEDS: MAGNESIUM HYDROXIDE SUSP 30 ML UDCUP PO SCH ×2 (09:38→17:18)
[2018-03-11] MEDS: NYSTATIN 500000 UNIT/5 ML UDCUP PO SCH ×4 (09:38→21:55)
[2018-03-11] MEDS: FAMOTIDINE 20 MG TABLET PO SCH ×2 (09:38→21:56)
[2018-03-11] MEDS: ENOXAPARIN SODIUM INJ 40 MG/0.4 ML DISP.SYRIN SUBCUT SCH (09:47)
[2018-03-11] MEDS: ACETAMINOPHEN 325 MG TABLET PO PRN ×2 (16:18→21:57)
--- NOTE | 2018-03-11 16:38 | PDOC PROGRESS REPORT ---
Subjective Progress Note for:: 03/11/18 Subjective:: No adverse events overnight. She is more alert and interactive today. She was able to sit up in the bed under her own power. She still somewhat confused but is pleasant and redirectable. Reason For Visit: CHEST PAIN,AUDIOVISUAL HALLUCINATION Physical Exam Vital Signs: Temp Pulse Resp BP Pulse Ox 97.3 F 69 14 152/89 H 99 03/11/18 15:33 03/11/18 15:33 03/11/18 15:33 03/11/18 15:33 03/11/18 15:33 Intake & Output 03/10/18 03/11/18 03/12/18 06:59 06:59 06:59 Intake Total 0 500 Output Total 0 Balance 0 500 Weight 63 kg 62.5 kg General appearance: PRESENT: no acute distress, disheveled Respiratory exam: PRESENT: clear to auscultation ailyn, symmetrical, unlabored. ABSENT: accessory muscle use, crackles, rhonchi, tachypnea, wheezes Cardiovascular exam: PRESENT: RRR, +S1, +S2 Vascular exam: PRESENT: normal capillary refill GI/Abdominal exam: PRESENT: normal bowel sounds, soft. ABSENT: distended, guarding, rebound, tenderness Extremities exam: ABSENT: clubbing, pedal edema Musculoskeletal exam: PRESENT: normal inspection. ABSENT: deformity Neurological exam: PRESENT: awake, attempts to answer questions. Still a bit disoriented but pleasant Skin exam: PRESENT: dry, warm Results Laboratory Results: 03/04/18 11:43 03/09/18 09:55 02/28/18 03/01/18 03/01/18 21:25 01:45 08:51 CK-MB (CK-2) Troponin I 0.069 0.063 0.068 03/04/18 03/04/18 03/04/18 11:43 15:30 20:48 CK-MB (CK-2) 2.03 Troponin I 0.055 0.048 0.044 03/05/18 03:10 CK-MB (CK-2) Troponin I 0.063 Impressions: Head CT 03/01/18 18:50 IMPRESSION: MILD CHRONIC CHANGES OF ATROPHY AND MICROVASCULAR ISCHEMIA. 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 NO ACUTE PROCESS. EVIDENCE OF ACUTE STROKE: NO. Abdomen/Pelvis CT 01/04/19 10:32 IMPRESSION: Small volume ascites. No additional evidence of acute intra- abdominal/pelvic process. Assessment & Plan - Diagnosis (1) Ischemic cardiomyopathy EF 30% Is this a current diagnosis for this admission?: Yes Plan: She does not appear to be acutely exacerbated. Continue current medication regimen. (2) Bipolar 1 disorder, depressed Is this a current diagnosis for this admission?: Yes Plan: Continue Depakote. She is been denied for placement in most rehab facilities, we are going to look into her long-term placement options. (3) Chest pain Qualifiers: Chest pain type: precordial pain Qualified Code(s): R07.2 - Precordial pain Is this a current diagnosis for this admission?: Yes Plan: Stress test was negative (4) Hypothyroidism Qualifiers: Hypothyroidism type: acquired Qualified Code(s): E03.9 - Hypothyroidism, unspecified Is this a current diagnosis for this admission?: Yes Plan: Continue Synthroid (5) Somnolence Is this a current diagnosis for this admission?: Yes Plan: Resolved (6) HTN (hypertension) Qualifiers: Hypertension type: essential hypertension Qualified Code(s): I10 - Essential (primary) hypertension Is this a current diagnosis for this admission?: Yes Plan: She has not been able to stay awake long enough take her blood pressure medications in several days. Hopefully now that she is more awake, will be able to get her medications into her and see how her blood pressure response. - Time Time Spent with patient: 15-24 minutes
[2018-03-11] MEDS: ATORVASTATIN CALCIUM 20 MG TABLET PO SCH (21:55)
[2018-03-12] MEDS: METOPROLOL SUCCINATE 50 MG TAB.SR.24H PO SCH ×2 (06:55→18:42)
[2018-03-12] MEDS: MAGNESIUM HYDROXIDE SUSP 30 ML UDCUP PO SCH ×2 (11:11→18:42)
[2018-03-12] MEDS: LISINOPRIL 10 MG TABLET PO SCH (11:11)
[2018-03-12] MEDS: POLYETHYLENE GLYCOL 3350 POWDER 17 GM/1 PACKET PO SCH (11:11)
[2018-03-12] MEDS: DIVALPROEX SODIUM 250 MG TAB.SR.24H PO SCH ×2 (11:12→18:42)
[2018-03-12] MEDS: ENOXAPARIN SODIUM INJ 40 MG/0.4 ML DISP.SYRIN SUBCUT SCH (11:12)
[2018-03-12] MEDS: FAMOTIDINE 20 MG TABLET PO SCH ×2 (11:12→22:35)
[2018-03-12] MEDS: NYSTATIN 500000 UNIT/5 ML UDCUP PO SCH ×4 (11:12→22:35)
--- NOTE | 2018-03-12 14:54 | PDOC PROGRESS REPORT ---
Subjective Progress Note for:: 03/12/18 Subjective:: No adverse events overnight. She remains more awake and alert that she was several days ago. She is not terribly interactive but she is pleasant and calm. Reason For Visit: CHEST PAIN,AUDIOVISUAL HALLUCINATION Physical Exam Vital Signs: Temp Pulse Resp BP Pulse Ox 97.5 F 70 16 128/68 H 100 03/12/18 11:14 03/12/18 11:14 03/12/18 11:14 03/12/18 11:14 03/12/18 11:14 Intake & Output 03/11/18 03/12/18 03/13/18 06:59 06:59 06:59 Intake Total 500 400 Output Total 0 Balance 500 400 Weight 62.5 kg 62.5 kg General appearance: PRESENT: no acute distress, disheveled Respiratory exam: PRESENT: clear to auscultation ailyn, symmetrical, unlabored. ABSENT: accessory muscle use, crackles, rhonchi, tachypnea, wheezes Cardiovascular exam: PRESENT: RRR, +S1, +S2 Vascular exam: PRESENT: normal capillary refill GI/Abdominal exam: PRESENT: normal bowel sounds, soft. ABSENT: distended, guarding, rebound, tenderness Extremities exam: ABSENT: clubbing, pedal edema Musculoskeletal exam: PRESENT: normal inspection. ABSENT: deformity Neurological exam: PRESENT: awake, attempts to answer questions. Still a bit disoriented but pleasant Skin exam: PRESENT: dry, warm Results Laboratory Results: 03/04/18 11:43 03/09/18 09:55 02/28/18 03/01/18 03/01/18 21:25 01:45 08:51 CK-MB (CK-2) Troponin I 0.069 0.063 0.068 03/04/18 03/04/18 03/04/18 11:43 15:30 20:48 CK-MB (CK-2) 2.03 Troponin I 0.055 0.048 0.044 03/05/18 03:10 CK-MB (CK-2) Troponin I 0.063 Impressions: Head CT 03/01/18 18:50 IMPRESSION: MILD CHRONIC CHANGES OF ATROPHY AND MICROVASCULAR ISCHEMIA. 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 NO ACUTE PROCESS. EVIDENCE OF ACUTE STROKE: NO. Abdomen/Pelvis CT 03/04/18 10:32 IMPRESSION: Small volume ascites. No additional evidence of acute intra- abdominal/pelvic process. Assessment & Plan - Diagnosis (1) Ischemic cardiomyopathy EF 30% Is this a current diagnosis for this admission?: Yes Plan: She does not appear to be acutely exacerbated. Continue current medication regimen. (2) Bipolar 1 disorder, depressed Is this a current diagnosis for this admission?: Yes Plan: Continue Depakote. She is been denied for placement in most rehab facilities, we are going to look into her long-term placement options. (3) Chest pain Qualifiers: Chest pain type: precordial pain Qualified Code(s): R07.2 - Precordial pain Is this a current diagnosis for this admission?: Yes Plan: Stress test was negative (4) Hypothyroidism Qualifiers: Hypothyroidism type: acquired Qualified Code(s): E03.9 - Hypothyroidism, unspecified Is this a current diagnosis for this admission?: Yes Plan: Continue Synthroid (5) Somnolence Is this a current diagnosis for this admission?: Yes Plan: Resolved (6) HTN (hypertension) Qualifiers: Hypertension type: essential hypertension Qualified Code(s): I10 - Essential (primary) hypertension Is this a current diagnosis for this admission?: Yes Plan: She has not been able to stay awake long enough take her blood pressure medications in several days. Hopefully now that she is more awake, will be able to get her medications into her and see how her blood pressure response. - Time Time Spent with patient: 15-24 minutes
[2018-03-12] MEDS: ATORVASTATIN CALCIUM 20 MG TABLET PO SCH (22:35)
[2018-03-13] MEDS: METOPROLOL SUCCINATE 50 MG TAB.SR.24H PO SCH ×2 (05:23→17:07)
[2018-03-13] MEDS: MAGNESIUM HYDROXIDE SUSP 30 ML UDCUP PO SCH ×2 (11:05→17:08)
[2018-03-13] MEDS: POLYETHYLENE GLYCOL 3350 POWDER 17 GM/1 PACKET PO SCH (11:05)
[2018-03-13] MEDS: DIVALPROEX SODIUM 250 MG TAB.SR.24H PO SCH ×2 (11:05→17:08)
[2018-03-13] MEDS: FAMOTIDINE 20 MG TABLET PO SCH ×2 (11:05→21:53)
[2018-03-13] MEDS: NYSTATIN 500000 UNIT/5 ML UDCUP PO SCH ×4 (11:05→21:53)
[2018-03-13] MEDS: LISINOPRIL 10 MG TABLET PO SCH (11:05)
[2018-03-13] MEDS: ENOXAPARIN SODIUM INJ 40 MG/0.4 ML DISP.SYRIN SUBCUT SCH (11:05)
--- NOTE | 2018-03-13 15:24 | PDOC PROGRESS REPORT ---
Subjective Progress Note for:: 03/13/18 Subjective:: No adverse events overnight. We have occasionally had trouble getting her to take her medications, sometimes she spits them out. Most of the time she is been fairly cooperative. Reason For Visit: CHEST PAIN,AUDIOVISUAL HALLUCINATION Physical Exam Vital Signs: Temp Pulse Resp BP Pulse Ox 97.6 F 81 16 156/85 H 94 03/13/18 07:56 03/13/18 07:56 03/13/18 07:56 03/13/18 07:56 03/13/18 07:56 Intake & Output 03/12/18 03/13/18 03/14/18 06:59 06:59 06:59 Intake Total 400 247 Balance 400 247 Weight 62.5 kg 59.2 kg General appearance: PRESENT: no acute distress, disheveled Respiratory exam: PRESENT: clear to auscultation ailyn, symmetrical, unlabored. ABSENT: accessory muscle use, crackles, rhonchi, tachypnea, wheezes Cardiovascular exam: PRESENT: RRR, +S1, +S2 Vascular exam: PRESENT: normal capillary refill GI/Abdominal exam: PRESENT: normal bowel sounds, soft. ABSENT: distended, guarding, rebound, tenderness Extremities exam: ABSENT: clubbing, pedal edema Musculoskeletal exam: PRESENT: normal inspection. ABSENT: deformity Neurological exam: PRESENT: awake, attempts to answer questions. Still a bit disoriented but pleasant Skin exam: PRESENT: dry, warm Results Laboratory Results: 03/04/18 11:43 03/09/18 09:55 02/28/18 03/01/18 03/01/18 21:25 01:45 08:51 CK-MB (CK-2) Troponin I 0.069 0.063 0.068 03/04/18 03/04/18 03/04/18 11:43 15:30 20:48 CK-MB (CK-2) 2.03 Troponin I 0.055 0.048 0.044 03/05/18 03:10 CK-MB (CK-2) Troponin I 0.063 Impressions: Head CT 03/01/18 18:50 IMPRESSION: MILD CHRONIC CHANGES OF ATROPHY AND MICROVASCULAR ISCHEMIA. 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 NO ACUTE PROCESS. EVIDENCE OF ACUTE STROKE: NO. Abdomen/Pelvis CT 03/04/18 10:32 IMPRESSION: Small volume ascites. No additional evidence of acute intra- abdominal/pelvic process. Assessment & Plan - Diagnosis (1) Ischemic cardiomyopathy EF 30% Is this a current diagnosis for this admission?: Yes Plan: She does not appear to be acutely exacerbated. Continue current medication regimen. (2) Bipolar 1 disorder, depressed Is this a current diagnosis for this admission?: Yes Plan: Continue Depakote. She is been denied for placement in most rehab facilities, we are going to look into her long-term placement options. (3) Chest pain Qualifiers: Chest pain type: precordial pain Qualified Code(s): R07.2 - Precordial pain Is this a current diagnosis for this admission?: Yes Plan: Stress test was negative (4) Hypothyroidism Qualifiers: Hypothyroidism type: acquired Qualified Code(s): E03.9 - Hypothyroidism, unspecified Is this a current diagnosis for this admission?: Yes Plan: Continue Synthroid (5) Somnolence Is this a current diagnosis for this admission?: Yes Plan: Resolved (6) HTN (hypertension) Qualifiers: Hypertension type: essential hypertension Qualified Code(s): I10 - Essentia l (primary) hypertension Is this a current diagnosis for this admission?: Yes Plan: The problem we are having now is that she is spitting some of her medications out. It is difficult to say whether or not her medications are effective if she is not taking them on a consistent basis. - Time Time Spent with patient: 15-24 minutes
[2018-03-13] MEDS: ATORVASTATIN CALCIUM 20 MG TABLET PO SCH (21:53)
[2018-03-14] MEDS: METOPROLOL SUCCINATE 50 MG TAB.SR.24H PO SCH ×2 (06:00→17:07)
[2018-03-14] MEDS: NYSTATIN 500000 UNIT/5 ML UDCUP PO SCH ×4 (09:21→21:57)
[2018-03-14] MEDS: MAGNESIUM HYDROXIDE SUSP 30 ML UDCUP PO SCH ×2 (09:21→17:07)
[2018-03-14] MEDS: POLYETHYLENE GLYCOL 3350 POWDER 17 GM/1 PACKET PO SCH (09:21)
[2018-03-14] MEDS: DIVALPROEX SODIUM 250 MG TAB.SR.24H PO SCH ×2 (09:21→17:07)
[2018-03-14] MEDS: FAMOTIDINE 20 MG TABLET PO SCH ×2 (09:22→21:57)
[2018-03-14] MEDS: MULTIVITAMIN TABLET PO SCH (09:22)
[2018-03-14] MEDS: LISINOPRIL 10 MG TABLET PO SCH (09:22)
--- NOTE | 2018-03-14 09:26 | RADIOLOGY REPORT (SQ) ---
EXAM DESCRIPTION: CHEST SINGLE VIEW COMPLETED DATE/TIME: 03/14/2018 8:33 am REASON FOR STUDY: cough, COMPARISON: Chest films 02/22/2018, 11/26/2017, 11/15/2017 EXAM PARAMETERS: NUMBER OF VIEWS: One view. TECHNIQUE: Single frontal radiographic view of the chest acquired. RADIATION DOSE: NA LIMITATIONS: None. FINDINGS: LUNGS AND PLEURA: No opacities, masses or pneumothorax. No pleural effusion. MEDIASTINUM AND HILAR STRUCTURES: No masses. Contour normal. 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 BONES: No acute findings. HARDWARE: Clips right upper quadrant post cholecystectomy OTHER: No other significant finding. IMPRESSION: NO ACUTE RADIOGRAPHIC FINDING IN THE CHEST. TECHNICAL DOCUMENTATION: JOB ID: [id number] [employer]- All Rights Reserved Reading location - IP/workstation name: [email or web address]
[2018-03-14] MEDS: ENOXAPARIN SODIUM INJ 40 MG/0.4 ML DISP.SYRIN SUBCUT SCH (10:36)
[2018-03-14 11:41] LABS: ABSOLUTE BASOPHILS # (AUTO) 0.1 10^3/uL (0.0-0.2); ABSOLUTE LYMPHOCYTES (AUTO) 1.4 10^3/uL (0.5-4.7); ABSOLUTE MONOCYTES (AUTO) 1.2 10^3/uL (0.1-1.4); ABSOLUTE NEUT (AUTO) 6.5 10^3/uL (1.7-8.2); BASOPHILS % (AUTO) 0.7 % (0-2); EOSINOPHILS % (AUTO) 0.1 % (0-6); HEMOGLOBIN 13.9 g/dL (12.0-15.5); LYMPHOCYTES % (AUTO) 15.6 % (13-45); MEAN CORPUSCULAR HGB CONC 32.3 g/dL (32.0-36.0); MEAN CORPUSCULAR VOLUME 78 fl (80-97); MONOCYTES % (AUTO) 12.8 % (3-13); PLATELET COUNT 143 10^3/uL (150-450); RED BLOOD COUNT 5.54 10^6/uL (3.72-5.28); RED CELL DISTRIBUTION WIDTH 20.8 % (11.5-14.0); SEGMENTED NEUTROPHILS % (AUTO) 70.8 % (42-78); TOTAL CELLS COUNTED % (AUTO) 100 %; WHITE BLOOD COUNT 9.2 10^3/uL (4.0-10.5)
[2018-03-14 11:58] LABS: ANION GAP 8 (5-19); BLOOD UREA NITROGEN 36 mg/dL (7-20); CALCIUM 9.2 mg/dL (8.4-10.2); CARBON DIOXIDE 35 mmol/L (22-30); CHLORIDE 110 mmol/L (98-107); GLUCOSE 102 mg/dL (75-110)
[2018-03-14 11:59] LABS: POTASSIUM 2.4 mmol/L (3.6-5.0)
[2018-03-14] MEDS: NORMAL SALINE 1000 ML 1,000 ML IV PRN ×2 (13:42→21:59)
[2018-03-14] MEDS: POTASSI CL 20 MEQ/50 ML RIDER 20 MEQ/50 ML RTUPB IV SCH ×3 (13:43→17:27)
--- NOTE | 2018-03-14 17:12 | PDOC PROGRESS REPORT ---
Subjective Progress Note for:: 03/14/18 Subjective:: No adverse events overnight. Speech therapy saw her today and she would not follow commands to take anything by mouth so they could not reliably say that she was safe to eat anything besides some ice chips. Whenever I seen her she is usually drank from a straw, and I could get her to take about 8 ounces of water each time I did this over the last few days. I have not seen her actually eat anything. Yesterday they were trying to give her some of her pills and putting and she took some of it but then spat some of it out. Reason For Visit: CHEST PAIN,AUDIOVISUAL HALLUCINATION Physical Exam Vital Signs: Temp Pulse Resp BP Pulse Ox 98.3 F 66 16 125/65 92 03/14/18 07:41 03/14/18 14:00 03/14/18 07:41 03/14/18 07:41 03/14/18 07:41 Intake & Output 03/13/18 03/14/18 03/15/18 06:59 06:59 06:59 Intake Total 247 150 45 Balance 247 150 45 Weight 59.2 kg 57.2 kg General appearance: PRESENT: no acute distress, disheveled Respiratory exam: PRESENT: clear to auscultation ailyn, symmetrical, unlabored. ABSENT: accessory muscle use, crackles, rhonchi, tachypnea, wheezes Cardiovascular exam: PRESENT: RRR, +S1, +S2 Vascular exam: PRESENT: normal capillary refill GI/Abdominal exam: PRESENT: normal bowel sounds, soft. ABSENT: distended, guarding, rebound, tenderness Extremities exam: ABSENT: clubbing, pedal edema Musculoskeletal exam: PRESENT: normal inspection. ABSENT: deformity Neurological exam: PRESENT: awake, attempts to answer questions. Still a bit disoriented but pleasant Skin exam: PRESENT: dry, warm Results Laboratory Results: 03/14/18 11:03 03/14/18 11:03 03/04/18 03/14/18 03/14/18 11:43 11:03 11:03 WBC 9.2 RBC 5.54 H Hgb 13.9 Hct 43.0 MCV 78 L MCH 25.0 L MCHC 32.3 RDW 20.8 H Plt Count 143 L Seg Neutrophils % 70.8 Lymphocytes % 15.6 Monocytes % 12.8 Eosinophils % 0.1 Basophils % 0.7 Absolute Neutrophils 6.5 Absolute Lymphocytes 1.4 Absolute Monocytes 1.2 Absolute Eosinophils 0.0 Absolute Basophils 0.1 Sodium 143.3 153.0 H Potassium 4.4 2.4 L* Chloride 97 L 110 H Carbon Dioxide 30 35 H Anion Gap 16 8 BUN 20 36 H Creatinine 1.23 1.75 H Est GFR ( Amer) 54 L 36 L Est GFR (Non-Af Amer) 45 L 30 L Glucose 148 H 102 Calcium 9.7 9.2 Total Bilirubin 3.3 H AST 106 H ALT 16 Alkaline Phosphatase 187 H Total Protein 9.8 H Albumin 4.5 Lipase 52.8 02/28/18 03/01/18 03/01/18 21:25 01:45 08:51 CK-MB (CK-2) Troponin I 0.069 0.063 0.068 03/04/18 03/04/18 03/04/18 11:43 15:30 20:48 CK-MB (CK-2) 2.03 Troponin I 0.055 0.048 0.044 03/05/18 03:10 CK-MB (CK-2) Troponin I 0.063 Impressions: Head CT 03/01/18 18:50 IMPRESSION: MILD CHRONIC CHANGES OF ATROPHY AND MICROVASCULAR ISCHEMIA. 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 NO ACUTE PROCESS. EVIDENCE OF ACUTE STROKE: NO. Abdomen/Pelvis CT 03/04/18 10:32 IMPRESSION: Small volume ascites. No additional evidence of acute intra- abdominal/pelvic process. Chest X-Ray 03/14/18 00:00 IMPRESSION: NO ACUTE RADIOGRAPHIC FINDING IN THE CHEST. Assessment & Plan - Diagnosis (1) Ischemic cardiomyopathy EF 30% Is this a current diagnosis for this admission?: Yes Plan: She does not appear to be acutely exacerbated. Continue current medication regimen. I have started some IV fluids because she is dehydrated, so we will have to watch her closely and when she is euvolemic we need to stop the IV fluids. (2) Bipolar 1 disorder, depressed Is this a current diagnosis for this admission?: Yes Plan: Continue Depakote if we can get her to take it. She is been denied for placement in most rehab facilities, we are going to look into her long-term placement options. (3) Chest pain Qualifiers: Chest pain type: precordial pain Qualified Code(s): R07.2 - Precordial pain Is this a current diagnosis for this admission?: Yes Plan: Stress test was negative (4) Hypothyroidism Qualifiers: Hypothyroidism type: acquired Qualified Code(s): E03.9 - Hypothyroidism, unspecified Is this a current diagnosis for this admission?: Yes Plan: Continue Synthroid if we can get her to take it (5) Somnolence Is this a current diagnosis for this admission?: Yes Plan: Resolved. She is not been hypersomnolent for several days now. (6) HTN (hypertension) Qualifiers: Hypertension type: essential hypertension Qualified Code(s): I10 - Essential (primary) hypertension Is this a current diagnosis for this admission?: Yes Plan: The problem we are having now is that she is spitting some of her medications out. It is difficult to say whether or not her medications are effective if she is not taking them on a consistent basis. (7) Dehydration Is this a current diagnosis for this admission?: Yes Plan: Due to poor p.o. intake. As noted above, we have cautiously started her on some IV fluids and need to stop the fluids when she is euvolemic. (8) Hypokalemia Is this a current diagnosis for this admission?: Yes Plan: She is not reliably taking p.o., and so most of this is from inadequate intake. Were having to replace it IV. - Time Time Spent with patient: 15-24 minutes
[2018-03-14] MEDS: ATORVASTATIN CALCIUM 20 MG TABLET PO SCH (21:56)
[2018-03-15] MEDS: METOPROLOL SUCCINATE 50 MG TAB.SR.24H PO SCH ×2 (05:26→17:35)
[2018-03-15] MEDS: NORMAL SALINE 1000 ML 1,000 ML IV PRN (08:23)
[2018-03-15 10:09] LABS: ANION GAP 13 (5-19); BLOOD UREA NITROGEN 36 mg/dL (7-20); CALCIUM 9.6 mg/dL (8.4-10.2); CARBON DIOXIDE 29 mmol/L (22-30); CHLORIDE 114 mmol/L (98-107); GLUCOSE 101 mg/dL (75-110); SODIUM 155.5 mmol/L (137-145)
[2018-03-15 10:31] LABS: POTASSIUM 2.9 mmol/L (3.6-5.0)
[2018-03-15] MEDS: CLONIDINE 0.1 MG/24 HR PATCH.TDWK TD SCH (10:37)
[2018-03-15] MEDS: ENOXAPARIN SODIUM INJ 40 MG/0.4 ML DISP.SYRIN SUBCUT SCH (10:38)
[2018-03-15] MEDS: POTASSI CL 20 MEQ/50 ML RIDER 20 MEQ/50 ML RTUPB IV SCH ×2 (12:28→14:34)
[2018-03-15] MEDS: 1/2 NORMAL SALINE 1,000 ML IV PRN ×2 (12:29→21:25)
[2018-03-15] MEDS: DIVALPROEX SODIUM 250 MG TAB.SR.24H PO SCH ×2 (12:31→17:35)
[2018-03-15 12:47] LABS: ALANINE AMINOTRANSFERASE 22 U/L (9-52); ALKALINE PHOSPHATASE 165 U/L (38-126); ASPARTATE AMINO TRANSFERASE 77 U/L (14-36); BILIRUBIN,DIRECT 1.6 mg/dL (0.0-0.4); BILIRUBIN,TOTAL 2.3 mg/dL (0.2-1.3); TOTAL PROTEIN 8.5 g/dL (6.3-8.2)
[2018-03-15 12:50] LABS: ANION GAP 11 (5-19); BLOOD UREA NITROGEN 37 mg/dL (7-20); CALCIUM 9.3 mg/dL (8.4-10.2); CARBON DIOXIDE 31 mmol/L (22-30); CHLORIDE 115 mmol/L (98-107); GLUCOSE 107 mg/dL (75-110); SODIUM 157.2 mmol/L (137-145)
[2018-03-15 13:36] LABS: POTASSIUM 2.9 mmol/L (3.6-5.0)
--- NOTE | 2018-03-15 16:16 | PDOC PROGRESS REPORT ---
Subjective Progress Note for:: 03/15/18 Subjective:: The patient is a 57-year-old female with a past medical history of CAD, CO x2, hypertension, hyperlipidemia, COPD, DM 2, GERD, bipolar, depression, schizoaffective disorder who initially presented to the emergency department on 02/26/18 with a psychiatric complaint and spent 6 days on psych hold in the emergency department pending placement. Patient then began complaining of chest discomfort and so was referred to the hospitalist service for admission and management on 03/04/18. Cardiac workup was benign. The patient was seen on morning rounds with nursing present. She is found resting in bed comfortably on room air. She was awake and oriented to self only. She intermittently responds to questions, appears emotionally upset (facial expression similar to crying), but is unable to specify what is bothering her. She shakes her head no when asked if she has a headache, neck or back pain, but does not answer further questions regarding ROS. She again sh akes her head no when I asked her to squeeze my hands, but does wiggle her toes when directed to do so. Nursing reports that this is an improvement in her mentation as compared to yesterday and earlier this morning. ROS is limited secondary to altered mental status. Reason For Visit: CHEST PAIN,AUDIOVISUAL HALLUCINATION Physical Exam Vital Signs: Temp Pulse Resp BP Pulse Ox 97.5 F 72 16 175/85 H 97 03/15/18 11:32 03/15/18 11:32 03/15/18 11:32 03/15/18 11:32 03/15/18 11:32 Intake & Output 03/14/18 03/15/18 03/16/18 06:59 06:59 06:59 Intake Total 150 1071 1050 Balance 150 1071 1050 Weight 57.2 kg 59.2 kg General appearance: PRESENT: no acute distress, well-developed, well-nourished Head exam: PRESENT: atraumatic, normocephalic Eye exam: PRESENT: conjunctiva pink, EOMI, PERRLA. ABSENT: scleral icterus Ear exam: PRESENT: normal external ear exam Mouth exam: PRESENT: moist, tongue midline Neck exam: ABSENT: carotid bruit, JVD, lymphadenopathy, thyromegaly Respiratory exam: PRESENT: clear to auscultation ailyn, symmetrical, unlabored. ABSENT: rales, rhonchi, wheezes Cardiovascular exam: PRESENT: RRR, +S1, +S2. ABSENT: diastolic murmur, rubs, systolic murmur Pulses: PRESENT: normal dorsalis pedis pul Vascular exam: PRESENT: normal capillary refill GI/Abdominal exam: PRESENT: normal bowel sounds, soft. ABSENT: distended, guarding, mass, organolmegaly, rebound, tenderness Rectal exam: PRESENT: deferred Extremities exam: PRESENT: full ROM - Moves all extremities spontaneously Neurological exam: PRESENT: awake, oriented to person, CN II-XII grossly intact, other - Limited participation in exam. ABSENT: motor sensory deficit Psychiatric exam: PRESENT: flat affect - Withdrawn Skin exam: PRESENT: dry, intact, warm. ABSENT: cyanosis, rash Results Laboratory Results: 03/14/18 11:03 03/15/18 12:07 03/15/18 03/15/18 03/15/18 08:58 12:07 12:07 Sodium 155.5 H Potassium 2.9 L* Chloride 114 H Carbon Dioxide 29 Anion Gap 13 BUN 36 H Creatinine 1.44 H Est GFR ( Amer) 45 L Est GFR (Non-Af Amer) 37 L Glucose 101 Calcium 9.6 Total Bilirubin 2.3 H AST 77 H ALT 22 Alkaline Phosphatase 165 H Ammonia < 8.7 L Total Protein 8.5 H Albumin 4.0 03/15/18 12:07 Sodium 157.2 H Potassium 2.9 L* Chloride 115 H Carbon Dioxide 31 H Anion Gap 11 BUN 37 H Creatinine 1.40 H Est GFR ( Amer) 47 L Est GFR (Non-Af Amer) 38 L Glucose 107 Calcium 9.3 Total Bilirubin AST ALT Alkaline Phosphatase Ammonia Total Protein Albumin 02/28/18 03/01/18 03/01/18 21:25 01:45 08:51 CK-MB (CK-2) Troponin I 0.069 0.063 0.068 03/04/18 03/04/18 03/04/18 11:43 15:30 20:48 CK-MB (CK-2) 2.03 Troponin I 0.055 0.048 0.044 03/05/18 03:10 CK-MB (CK-2) Troponin I 0.063 Impressions: Head CT 03/01/18 18:50 IMPRESSION: MILD CHRONIC CHANGES OF ATROPHY AND MICROVASCULAR ISCHEMIA. 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 NO ACUTE PROCESS. EVIDENCE OF ACUTE STROKE: NO. Abdomen/Pelvis CT 03/04/18 10:32 IMPRESSION: Small volume ascites. No additional evidence of acute intra- abdominal/pelvic process. Chest X-Ray 03/14/18 00:00 IMPRESSION: NO ACUTE RADIOGRAPHIC FINDING IN THE CHEST. Assessment & Plan - Diagnosis (1) Acute encephalopathy Is this a current diagnosis for this admission?: Yes Plan: Unclear etiology; likely multifactorial secondary to hypernatremia, dehydration, hypertension, underlying mental health disorders (bipolar, schizoaffective disorder), and possibly hospital psychosis. Head CT (03/01/18) mild chronic changes of atrophy with microvascular ischemia and an old right parietal infarct but no acute processes. No indications for infectious process at this time; patient is afebrile, WBCs are normal, urinalysis is negative for UTI. LFTs are slightly elevated but stable and ammonia normal. Depakote level is acceptable. Will provide for patient safety; fall, aspiration precautions. Will correct electrolyte derangements. Will check a.m. cortisol level. Consider MRI. Consider psychiatric reconsultation. (2) Hypernatremia Is this a current diagnosis for this admission?: Yes Plan: Sodium is trending up. Fluid restricted secondary to n.p.o. status (unsafe secondary to mental status changes at this time). IV fluids are adjusted to 1/2 NS. Monitor closely for fluid volume overload given the patient's EF. Serial chemistries. (3) Hypokalemia Is this a current diagnosis for this admission?: Yes Plan: Secondary to poor p.o. intake. Replace by IV. Serial chemistries. (4) Ischemic cardiomyopathy EF 30% Is this a current diagnosis for this admission?: Yes Plan: Echocardiogram revealed LVEF of 30% with severe global hypokinesis of the left ventricle, paradoxical septal wall motion consistent with right ventricular volume overload. She appears compensated without exacerbation at this time. We will continue medication regiment; lisinopril, metoprolol, daily aspirin, atorvastatin. Patient's metoprolol dose is reduced slightly today; have added clonidine patch in attempt to obtain better blood pressure control as the patient is frequently noncompliant with oral medications. (5) HTN (hypertension) Qualifiers: Hypertension type: essential hypertension Qualified Code(s): I10 - Essential (primary) hypertension Is this a current diagnosis for this admission?: Yes Plan: Remains hypertensive; 175/85. Patient is frequently noncompliant with oral medications (spitting them out); now with reduced p.o. intake which is further limiting her medication adherence. Continue lisinopril 10 mg daily. Have reduce metoprolol from 50 mg twice daily to 25 mg twice daily. Start clonidine 0.1 mg/24hr transdermal patch. (6) Somnolence Is this a current diagnosis for this admission?: Yes Plan: Improved; patient now is awake and oriented to self. Intermittently answering simple questions and following one-step simple commands. Will check AM cortisol level. Continue to monitor. (7) Dehydration Is this a current diagnosis for this admission?: Yes Plan: Secondary to poor p.o. intake and evidenced by hypernatremia. IV fluids as above. (8) Bipolar 1 disorder, depressed Is this a current diagnosis for this admission?: Yes Plan: Depakote 250 mg twice daily. Consider psychiatric reconsultation if mentation does not improve once hyponatr emia is corrected. - Time Time Spent with patient: 25-34 minutes Medications reviewed and adjusted accordingly: Yes Anticipated discharge: SNF - Long-term care
[2018-03-15] MEDS: MULTIVITAMIN TABLET PO SCH (16:27)
[2018-03-15 16:32] LABS: ANION GAP 9 (5-19); BLOOD UREA NITROGEN 37 mg/dL (7-20); CALCIUM 8.6 mg/dL (8.4-10.2); CARBON DIOXIDE 30 mmol/L (22-30); CHLORIDE 116 mmol/L (98-107); GLUCOSE 195 mg/dL (75-110); POTASSIUM 3.4 mmol/L (3.6-5.0); SODIUM 154.7 mmol/L (137-145)
[2018-03-15] MEDS: MAGNESIUM HYDROXIDE SUSP 30 ML UDCUP PO SCH ×2 (17:01→17:35)
[2018-03-15] MEDS: POLYETHYLENE GLYCOL 3350 POWDER 17 GM/1 PACKET PO SCH (17:01)
[2018-03-15] MEDS: NYSTATIN 500000 UNIT/5 ML UDCUP PO SCH ×4 (17:02→21:24)
[2018-03-15] MEDS: LISINOPRIL 10 MG TABLET PO SCH (17:35)
[2018-03-15] MEDS: FAMOTIDINE 20 MG TABLET PO SCH ×2 (17:35→21:24)
[2018-03-15] MEDS: ATORVASTATIN CALCIUM 20 MG TABLET PO SCH (21:24)
[2018-03-15] MEDS: ASPIRIN 81 MG TABLET, CHEWABLE PO SCH (21:24)
[2018-03-15 23:37] LABS: ANION GAP 12 (5-19); BLOOD UREA NITROGEN 38 mg/dL (7-20); CALCIUM 8.9 mg/dL (8.4-10.2); CARBON DIOXIDE 27 mmol/L (22-30); CHLORIDE 114 mmol/L (98-107); GLUCOSE 197 mg/dL (75-110); POTASSIUM 3.2 mmol/L (3.6-5.0); SODIUM 152.9 mmol/L (137-145)
[2018-03-16] MEDS: POTASSIUM CHLORIDE 20 MEQ/50 ML RTU IV SCH ×2 (00:22→02:11)
[2018-03-16] MEDS: METOPROLOL SUCCINATE 50 MG TAB.SR.24H PO SCH ×2 (05:10→17:52)
[2018-03-16 05:48] LABS: ANION GAP 7 (5-19); BLOOD UREA NITROGEN 37 mg/dL (7-20); CARBON DIOXIDE 31 mmol/L (22-30); CHLORIDE 116 mmol/L (98-107); GLUCOSE 191 mg/dL (75-110); POTASSIUM 3.3 mmol/L (3.6-5.0); SODIUM 153.5 mmol/L (137-145)
[2018-03-16] MEDS: 1/2 NORMAL SALINE 1,000 ML IV PRN ×2 (06:31→16:17)
[2018-03-16] MEDS: FAMOTIDINE 20 MG TABLET PO SCH ×2 (09:18→21:56)
[2018-03-16] MEDS: DIVALPROEX SODIUM 250 MG TAB.SR.24H PO SCH ×2 (09:19→17:51)
[2018-03-16] MEDS: INSULIN LISPRO 100 UNIT/ML 3 ML VIAL SUBCUT PRN ×3 (09:19→21:56)
[2018-03-16] MEDS: LISINOPRIL 10 MG TABLET PO SCH (09:24)
[2018-03-16] MEDS: MULTIVITAMIN TABLET PO SCH (09:24)
[2018-03-16] MEDS: NYSTATIN 500000 UNIT/5 ML UDCUP PO SCH ×4 (09:24→21:56)
[2018-03-16] MEDS ORDERED: BISACODYL 10 MG SUPP.RECT PR ONE (10:19)
[2018-03-16] MEDS: POLYETHYLENE GLYCOL 3350 POWDER 17 GM/1 PACKET PO SCH (11:39)
[2018-03-16] MEDS: ENOXAPARIN SODIUM INJ 40 MG/0.4 ML DISP.SYRIN SUBCUT SCH (11:40)
[2018-03-16 13:16] LABS: ANION GAP 8 (5-19); BLOOD UREA NITROGEN 42 mg/dL (7-20); CALCIUM 8.7 mg/dL (8.4-10.2); CARBON DIOXIDE 27 mmol/L (22-30); CHLORIDE 116 mmol/L (98-107); GLUCOSE 192 mg/dL (75-110); SODIUM 150.6 mmol/L (137-145)
[2018-03-16] MEDS: MAGNESIUM HYDROXIDE SUSP 30 ML UDCUP PO SCH ×2 (13:52→17:51)
--- NOTE | 2018-03-16 14:53 | PDOC PROGRESS REPORT ---
Subjective Progress Note for:: 03/16/18 Subjective:: The patient is a 57-year-old female with a past medical history of CAD, [place] x2, hypertension, hyperlipidemia, COPD, DM 2, GERD, bipolar, depression, schizoaffective disorder who initially presented to the emergency department on 02/26/18 with a psychiatric complaint and spent 6 days on psych hold in the emergency department pending placement. Patient then began complaining of chest discomfort and so was referred to the hospitalist service for admission and management on 03/04/18. Cardiac workup was benign. The patient was seen on morning rounds with nursing present. She is found resting in bed comfortably on room air. She was awake and oriented to self only. She intermittently responds to questions, and although only answers 'yes or no' to 1 or 2 questions, she is much more awake, following us with her eyes and making socially appropriate facial expressions as the nurse and I speak. ROS is limited secondary to altered mental status; however, patient does nod yes when asked if she feels constipated. Reason For Visit: CHEST PAIN,AUDIOVISUAL HALLUCINATION Physical Exam Vital Signs: Temp Pulse Resp BP Pulse Ox 97.7 F 65 16 116/60 95 03/16/18 13:05 03/16/18 13:05 03/16/18 13:05 03/16/18 13:05 03/16/18 13:05 Intake & Output 03/15/18 03/16/18 03/17/18 06:59 06:59 06:59 Intake Total 1071 3465 Balance 1071 3465 Weight 59.2 kg 59 kg General appearance: PRESENT: no acute distress, well-developed, well-nourished Head exam: PRESENT: atraumatic, normocephalic Eye exam: PRESENT: conjunctiva pink, EOMI, PERRLA. ABSENT: scleral icterus Ear exam: PRESENT: normal external ear exam Mouth exam: PRESENT: moist, tongue midline Neck exam: ABSENT: carotid bruit, JVD, lymphadenopathy, thyromegaly Respiratory exam: PRESENT: clear to auscultation ailyn, symmetrical, unlabored. ABSENT: rales, rhonchi, wheezes Cardiovascular exam: PRESENT: RRR. ABSENT: diastolic murmur, rubs, systolic murmur Pulses: PRESENT: normal dorsalis pedis pul Vascular exam: PRESENT: normal capillary refill GI/Abdominal exam: PRESENT: distended, normal bowel sounds, soft, tenderness. ABSENT: guarding, mass, organolmegaly, rebound Rectal exam: PRESENT: deferred Extremities exam: PRESENT: full ROM. ABSENT: calf tenderness, clubbing, pedal edema Neurological exam: PRESENT: alert, awake, oriented to person, CN II-XII grossly intact, other - Limited participation in exam; occasionally follows brief directions. More alert than yesterday.. ABSENT: motor sensory deficit Psychiatric exam: PRESENT: flat affect Skin exam: PRESENT: dry, warm, other - Draining abscess to right supraclavicular region. ABSENT: cyanosis, rash Results Laboratory Results: 03/14/18 11:03 03/16/18 12:32 03/15/18 03/15/18 03/15/18 16:05 22:12 22:12 Sodium 154.7 H 152.9 H Potassium 3.4 L 3.2 L Chloride 116 H 114 H Carbon Dioxide 30 27 Anion Gap 9 12 BUN 37 H 38 H Creatinine 1.36 H 1.28 H Est GFR ( Amer) 48 L 52 L Est GFR (Non-Af Amer) 40 L 43 L Glucose 195 H 197 H Calcium 8.6 8.9 Magnesium 2.6 H 03/16/18 03/16/18 03/16/18 04:31 06:49 12:32 Sodium 153.5 H 150.6 H Potassium 3.3 L 3.3 L 3.0 L* Chloride 116 H 116 H Carbon Dioxide 31 H 27 Anion Gap 7 8 BUN 37 H 42 H Creatinine 1.49 H 1.35 H Est GFR ( Amer) 43 L 49 L Est GFR (Non-Af Amer) 36 L 40 L Glucose 191 H 192 H Calcium 9.0 8.7 Magnesium 03/14/18 02:40 Stool - Stool - Final 03/14/18 02:40 Stool - Stool Stool Culture - Final NO SALMONELLA, SHIGELLA, CAMPYLOBACTER, OR E.COLI 0157 RECOVERED. NEGATIVE FOR SHIGA TOXINS 1&2. 02/28/18 03/01/18 03/01/18 21:25 01:45 08:51 CK-MB (CK-2) Troponin I 0.069 0.063 0.068 03/04/18 03/04/18 03/04/18 11:43 15:30 20:48 CK-MB (CK-2) 2.03 Troponin I 0.055 0.048 0.044 03/05/18 03:10 CK-MB (CK-2) Troponin I 0.063 Impressions: Head CT 03/01/18 18:50 IMPRESSION: MILD CHRONIC CHANGES OF ATROPHY AND MICROVASCULAR ISCHEMIA. 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 NO ACUTE PROCESS. EVIDENCE OF ACUTE STROKE: NO. Abdomen/Pelvis CT 03/04/18 10:32 IMPRESSION: Small volume ascites. No additional evidence of acute intra- abdominal/pelvic process. Chest X-Ray 03/14/18 00:00 IMPRESSION: NO ACUTE RADIOGRAPHIC FINDING IN THE CHEST. Assessment & Plan - Diagnosis (1) Acute encephalopathy Is this a current diagnosis for this admission?: Yes Plan: Slight improvement in alertness and participation in conversation today. Unclear etiology; likely multifactorial secondary to hypernatremia, dehydration, hypertension, underlying mental health disorders (bipolar, schizoaffective disorder), and possibly hospital psychosis. Head CT (03/01/18) mild chronic changes of atrophy with microvascular ischemia and an old right parietal infarct but no acute processes. No indications for infectious process at this time; patient is afebrile, WBCs are normal. We will repeat urinalysis today as patient was noted to have urinary retention upon placement of Osorio catheter had large volume of cloudy, foul-smelling, urine output. LFTs are slightly elevated but stable and ammonia normal. Depakote level is acceptable. Will provide for patient safety; fall, aspiration precautions. Will correct electrolyte derangements. Will check a.m. cortisol level. Consider MRI. Consider psychiatric reconsultation. (2) Hypernatremia Is this a current diagnosis for this admission?: Yes Plan: Improved with IVF; 144.7--> 153.0--> 157.2--> 150.6 IV fluids were adjusted to 1/2 NS yesterday with improved labs today. Monitor closely for fluid volume overload given the patient's EF. Now taking small sips of water/fluid with supervision; aspiration precautions. Serial chemistries. (3) Hypokalemia Is this a current diagnosis for this admission?: Yes Plan: Improving; secondary to poor p.o. intake. Replaced by IV yesterday; will try p.o. today. Serial chemistries. (4) Ischemic cardiomyopathy EF 30% Is this a current diagnosis for this admission?: Yes Plan: Echocardiogram revealed LVEF of 30% with severe global hypokinesis of the left ventricle, paradoxical septal wall motion consistent with right ventricular volume overload. She appears compensated without exacerbation at this time. We will continue medication regiment; lisinopril, metoprolol, daily aspirin, atorvastatin. Patient's metoprolol dose was reduced slightly yesterday; have added clonidine patch in attempt to obtain better blood pressure control as the patient is frequently noncompliant with oral medications. (5) HTN (hypertension) Qualifiers: Hypertension type: essential hypertension Qualified Code(s): I10 - Essential (primary) hypertension Is this a current diagnosis for this admission?: Yes Plan: Much improved today following addition of clonidine patch; 116/60. Patient is frequently noncompliant with oral medications (spitting them out); now with reduced p.o. intake which is further limiting her medication adherence. Continue lisinopril 10 mg daily. Have reduce metoprolol from 50 mg twice daily to 25 mg twice daily. Continue clonidine 0.1 mg/24hr transdermal patch. (6) Somnolence Is this a current diagnosis for this admission?: Yes Plan: Continues to slowly improve; patient now is awake and oriented to self. Intermittently answering simple questions and following one-step simple commands. TSH normal. Will check AM cortisol level. Continue to monitor. (7) Dehydration Is this a current diagnosis for this admission?: Yes Plan: Secondary to poor p.o. intake and evidenced by hypernatremia. IV fluids as above. Continue to encourage p.o. fluids with 1:1 supervision. (8) Bipolar 1 disorder, depressed Is this a current diagnosis for this admission?: Yes Plan: Depakote 250 mg twice daily. Consider psychiatric re-consultation if mentation does not improve once hyponatremia is corrected. (9) Urine retention Is this a current diagnosis for this admission?: Yes Plan: Pt with bladder distention on exam today; bladder scan demonstrated >999 mL. Osorio placed with 1300 mL output. Urinalysis is pending. - Time Time Spent with patient: 25-34 minutes Medications reviewed and adjusted accordingly: Yes Anticipated discharge: SNF - residential care
[2018-03-16] MEDS ORDERED: POTASSIUM CHLORIDE 20 MEQ/15 ML UDCUP PO ONE (15:00)
[2018-03-16 17:44] LABS: APPEARANCE,URINE TURBID; BILIRUBIN,URINE NEGATIVE (NEGATIVE); COLOR,URINE AMBER; GLUCOSE, URINE NEGATIVE (NEGATIVE); KETONES,URINE NEGATIVE (NEGATIVE); LEUKOCYTE ESTERASE,URINE MODERATE (NEGATIVE); NITRITE,URINE NEGATIVE (NEGATIVE); PROTEIN,URINE >=500 mg/dL (NEGATIVE); UROBILINOGEN,URINE NEGATIVE mg/dL (<2.0)
[2018-03-16 21:07] LABS: ANION GAP 7 (5-19); BLOOD UREA NITROGEN 42 mg/dL (7-20); CALCIUM 8.5 mg/dL (8.4-10.2); CARBON DIOXIDE 25 mmol/L (22-30); CHLORIDE 117 mmol/L (98-107); GLUCOSE 271 mg/dL (75-110); POTASSIUM 3.5 mmol/L (3.6-5.0); SODIUM 149.3 mmol/L (137-145)
[2018-03-16] MEDS: ATORVASTATIN CALCIUM 20 MG TABLET PO SCH (21:56)
[2018-03-16] MEDS: ASPIRIN 81 MG TABLET, CHEWABLE PO SCH (21:56)
[2018-03-17] MEDS: 1/2 NORMAL SALINE 1,000 ML IV PRN ×2 (01:28→17:54)
[2018-03-17 05:26] LABS: ANION GAP 11 (5-19); BLOOD UREA NITROGEN 45 mg/dL (7-20); CALCIUM 8.7 mg/dL (8.4-10.2); CARBON DIOXIDE 25 mmol/L (22-30); CHLORIDE 116 mmol/L (98-107); GLUCOSE 215 mg/dL (75-110); POTASSIUM 3.3 mmol/L (3.6-5.0); SODIUM 151.6 mmol/L (137-145)
[2018-03-17] MEDS: METOPROLOL SUCCINATE 50 MG TAB.SR.24H PO SCH (06:49)
[2018-03-17] MEDS: INSULIN LISPRO 100 UNIT/ML 3 ML VIAL SUBCUT PRN ×3 (07:59→17:54)
[2018-03-17] MEDS: LISINOPRIL 10 MG TABLET PO SCH (09:10)
[2018-03-17] MEDS: MULTIVITAMIN TABLET PO SCH (09:10)
[2018-03-17] MEDS: FAMOTIDINE 20 MG TABLET PO SCH ×2 (09:10→22:48)
[2018-03-17] MEDS: DIVALPROEX SODIUM 250 MG TAB.SR.24H PO SCH (09:10)
[2018-03-17] MEDS: CEFTRIAXONE 1 GM/D5W RTU 1 GM/50 ML RTUPB IV SCH (09:17)
[2018-03-17] MEDS: MAGNESIUM HYDROXIDE SUSP 30 ML UDCUP PO SCH ×2 (10:15→19:42)
[2018-03-17] MEDS: POLYETHYLENE GLYCOL 3350 POWDER 17 GM/1 PACKET PO SCH (10:15)
[2018-03-17] MEDS: ENOXAPARIN SODIUM INJ 40 MG/0.4 ML DISP.SYRIN SUBCUT SCH (10:15)
--- NOTE | 2018-03-17 16:42 | PDOC PROGRESS REPORT ---
Subjective Progress Note for:: 03/17/18 Subjective:: The patient is a 57-year-old female with a past medical history of CAD, DC x2, hypertension, hyperlipidemia, COPD, DM 2, GERD, bipolar, depression, schizoaffective disorder who initially presented to the emergency department on 02/26/18 with a psychiatric complaint and spent 6 days on psych hold in the emergency department pending placement. Patient then began complaining of chest discomfort and so was referred to the hospitalist service for admission and management on 03/04/18. Cardiac workup was benign. The patient was seen on morning rounds with nursing present. She is found resting in bed comfortably on room air. She was awake and oriented to self only. However, she is much more interactive with me today and attempts to answer my questions. She does have incomprehensible speech and does not follow commands. She does smile and make socially appropriate facial expressions as we are speaking with her and laughs when I check her plantar reflex. ROS is limited secondary to altered mental status. Nursing reports that she had a very large bowel movement this morning. She was also noted to have 1.3 L cloudy, foul-smelling, urine output yesterday when Osorio catheter was placed. They report that the patient seemed to become more interactive shortly after catheter was placed. She is now taking small sips of water and bites of pudding/applesauce. Reason For Visit: CHEST PAIN,AUDIOVISUAL HALLUCINATION Physical Exam Vital Signs: Temp Pulse Resp BP Pulse Ox 97.6 F 72 16 134/84 H 90 L 03/17/18 12:31 03/17/18 14:00 03/17/18 12:31 03/17/18 12:31 03/17/18 12:31 Intake & Output 03/16/18 03/17/18 03/18/18 06:59 06:59 06:59 Intake Total 3465 2307 1050 Output Total 2150 Balance 3465 157 1050 Weight 59 kg 64.7 kg General appearance: PRESENT: no acute distress, well-developed, well-nourished Head exam: PRESENT: atraumatic, normocephalic Eye exam: PRESENT: conjunctiva pink, EOMI, PERRLA. ABSENT: scleral icterus Ear exam: PRESENT: normal external ear exam Mouth exam: PRESENT: moist, tongue midline Neck exam: ABSENT: carotid bruit, JVD, lymphadenopathy, thyromegaly Respiratory exam: PRESENT: clear to auscultation ailyn, symmetrical, unlabored. ABSENT: rales, rhonchi, wheezes Cardiovascular exam: PRESENT: RRR. ABSENT: diastolic murmur, rubs, systolic murmur Pulses: PRESENT: normal dorsalis pedis pul Vascular exam: PRESENT: normal capillary refill GI/Abdominal exam: PRESENT: normal bowel sounds, soft. ABSENT: distended, guar ding, mass, organolmegaly, rebound, tenderness Rectal exam: PRESENT: deferred Gentrourinary exam: PRESENT: indwelling catheter Extremities exam: PRESENT: full ROM. ABSENT: calf tenderness, clubbing, pedal edema Neurological exam: PRESENT: alert, awake, oriented to person, CN II-XII grossly intact, other - Incomprehensible speech; increased alertness. ABSENT: motor sensory deficit Psychiatric exam: PRESENT: appropriate affect, normal mood. ABSENT: homicidal ideation, suicidal ideation Skin exam: PRESENT: dry, intact, jaundice, warm. ABSENT: cyanosis, rash Results Laboratory Results: 03/14/18 11:03 03/17/18 04:15 03/16/18 03/16/18 03/17/18 17:20 20:35 04:15 Sodium 149.3 H 151.6 H Potassium 3.5 L 3.3 L Chloride 117 H 116 H Carbon Dioxide 25 25 Anion Gap 7 11 BUN 42 H 45 H Creatinine 1.47 H 1.45 H Est GFR ( Amer) 44 L 45 L Est GFR (Non-Af Amer) 36 L 37 L Glucose 271 H 215 H Calcium 8.5 8.7 Urine Color JOANNE Urine Appearance TURBID Urine pH 7.0 Ur Specific Healy 1.010 Urine Protein >=500 H Urine Glucose (UA) NEGATIVE Urine Ketones NEGATIVE Urine Blood LARGE H Urine Nitrite NEGATIVE Ur Leukocyte Esterase MODERATE H Urine WBC (Auto) >182 Urine RBC (Auto) 142 03/14/18 02:40 Stool - Stool Ova and Parasite Concentrate Exam - Final 03/14/18 02:40 Stool - Stool Ova and Parasites - Final 03/14/18 02:40 Stool - Stool - Final 03/14/18 02:40 Stool - Stool Stool Culture - Final NO SALMONELLA, SHIGELLA, CAMPYLOBACTER, OR E.COLI 0157 RECOVERED. NEGATIVE FOR SHIGA TOXINS 1&2. 02/28/18 03/01/18 03/01/18 21:25 01:45 08:51 CK-MB (CK-2) Troponin I 0.069 0.063 0.068 03/04/18 03/04/18 03/04/18 11:43 15:30 20:48 CK-MB (CK-2) 2.03 Troponin I 0.055 0.048 0.044 03/05/18 03:10 CK-MB (CK-2) Troponin I 0.063 Impressions: Head CT 03/01/18 18:50 IMPRESSION: MILD CHRONIC CHANGES OF ATROPHY AND MICROVASCULAR ISCHEMIA. 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 NO ACUTE PROCESS. EVIDENCE OF ACUTE STROKE: NO. Abdomen/Pelvis CT 03/04/18 10:32 IMPRESSION: Small volume ascites. No additional evidence of acute intra- abdominal/pelvic process. Chest X-Ray 03/14/18 00:00 IMPRESSION: NO ACUTE RADIOGRAPHIC FINDING IN THE CHEST. Assessment & Plan - Diagnosis (1) Acute encephalopathy Is this a current diagnosis for this admission?: Yes Plan: Continued improvement in alertness and participation in conversation today. Unclear etiology; likely multifactorial secondary to hypernatremia, dehydration, hypertension, underlying mental health disorders (bipolar, schizoaffective disorder), and possibly hospital psychosis. Seems to have improved following placement of Osorio catheter and resolution of her urinary retention yesterday. Head CT (03/01/18) mild chronic changes of atrophy with microvascular ischemia and an old right parietal infarct but no acute processes. No indications for infectious process at this time; patient is afebrile, WBCs are normal. Urinalysis revealed urinary tract infection; cultures pending. LFTs are slightly elevated but stable and ammonia normal; will repeat LFTs tomorrow as the patient appears slightly jaundiced today. Depakote level is acceptable. AM cortisol level acceptable. Will provide for patient safety; fall, aspiration precautions. Supportive care. Will treat UTI. Will correct electrolyte derangements. Consider psychiatric reconsultation. (2) Hypernatremia Is this a current diagnosis for this admission?: Yes Plan: Plateaued IVF; 144.7--> 153.0--> 157.2--> 150.6--> 151.6 Continue 1/ NS. Monitor closely for fluid volume overload given the patient's EF. Now taking small sips of water/fluid with supervision; aspiration precautions. Low sodium diet. Serial chemistries. (3) Hypokalemia Is this a current diagnosis for this admission?: Yes Plan: Improving; secondary to poor p.o. intake. Continue replacement as needed. Serial chemistries. (4) Ischemic cardiomyopathy EF 30% Is this a current diagnosis for this admission?: Yes Plan: Echocardiogram revealed LVEF of 30% with severe global hypokinesis of the left ventricle, paradoxical septal wall motion consistent with right ventricular volume overload. She appears compensated without exacerbation at this time. We will continue medication regiment; lisinopril, metoprolol, daily aspirin, atorvastatin. Patient's metoprolol dose was reduced again today secondary to bradycardia this morning. (5) HTN (hypertension) Qualifiers: Hypertension type: essential hypertension Qualified Code(s): I10 - Essential (primary) hypertension Is this a current diagnosis for this admission?: Yes Plan: Much improved today following addition of clonidine patch; 134/84. Patient is frequently noncompliant with oral medications (spitting them out); now with reduced p.o. intake which is further limiting her medication adherence. Continue lisinopril 5 mg daily. Have reduce metoprolol from 50 mg twice daily to 12.5 mg twice daily. Continue clonidine 0.1 mg/24hr transdermal patch. (6) Somnolence Is this a current diagnosis for this admission?: Yes Plan: Continues to improve; patient now is awake and oriented to self. Intermittently answering simple questions and following one-step simple commands. TSH normal. AM cortisol is acceptable. Continue to monitor. (7) Dehydration Is this a current diagnosis for this admission?: Yes Plan: Secondary to poor p.o. intake and evidenced by hypernatremia. IV fluids as above. Continue to encourage p.o. fluids with 1:1 supervision. (8) Bipolar 1 disorder, depressed Is this a current diagnosis for this admission?: Yes Plan: Depakote 250 mg twice daily. Consider psychiatric re-consultation if mentation does not improve once hyp onatremia is corrected. (9) Urine retention Is this a current diagnosis for this admission?: Yes Plan: Pt with bladder distention on exam today; bladder scan demonstrated >999 mL. Osorio placed with 1300 mL output. Urinalysis positive for UTI. (10) UTI (urinary tract infection) Qualifiers: Urinary tract infection type: acute cystitis Hematuria presence: with hematuria Qualified Code(s): N30.01 - Acute cystitis with hematuria Is this a current diagnosis for this admission?: Yes Plan: Urinalysis positive for UTI. Urine culture with gram-positive cocci. Have initiated IV Rocephin; will adjust as cultures result. - Time Time Spent with patient: 15-24 minutes Medications reviewed and adjusted accordingly: Yes Anticipated discharge: SNF Within: within 72 hours
[2018-03-17] MEDS ORDERED: POTASSIUM CHLORIDE 20 MEQ/15 ML UDCUP PO ONE (17:30)
[2018-03-17] MEDS: DIVALPROEX SODIUM 125 MG CAP.SPRINK PO SCH (17:56)
[2018-03-17] MEDS: ASPIRIN 81 MG TABLET, CHEWABLE PO SCH (22:47)
[2018-03-17] MEDS: ATORVASTATIN CALCIUM 20 MG TABLET PO SCH (22:47)
[2018-03-17] MEDS: METOPROLOL TARTRATE 25 MG TABLET PO SCH (22:48)
[2018-03-18] MEDS: DIVALPROEX SODIUM 125 MG CAP.SPRINK PO SCH ×2 (06:36→17:43)
[2018-03-18 07:11] LABS: HEMATOCRIT 38.7 % (36.0-47.0); HEMOGLOBIN 12.4 g/dL (12.0-15.5); MEAN CORPUSCULAR HEMOGLOBIN 24.6 pg (27.0-33.4); MEAN CORPUSCULAR VOLUME 77 fl (80-97); PLATELET COUNT 125 10^3/uL (150-450); RED BLOOD COUNT 5.03 10^6/uL (3.72-5.28)
[2018-03-18 07:31] LABS: ALANINE AMINOTRANSFERASE 23 U/L (9-52); ALBUMIN 2.4 g/dL (3.5-5.0); ALKALINE PHOSPHATASE 123 U/L (38-126); ANION GAP 9 (5-19); ASPARTATE AMINO TRANSFERASE 31 U/L (14-36); BILIRUBIN,DIRECT 1.3 mg/dL (0.0-0.4); BILIRUBIN,TOTAL 1.7 mg/dL (0.2-1.3); BLOOD UREA NITROGEN 39 mg/dL (7-20); CALCIUM 8.6 mg/dL (8.4-10.2); CARBON DIOXIDE 26 mmol/L (22-30); CHLORIDE 116 mmol/L (98-107); GLUCOSE 190 mg/dL (75-110); SODIUM 150.6 mmol/L (137-145); TOTAL PROTEIN 5.7 g/dL (6.3-8.2)
[2018-03-18 07:34] LABS: POTASSIUM 2.7 mmol/L (3.6-5.0)
[2018-03-18] MEDS: POTASSI CL 20 MEQ/50 ML RIDER 20 MEQ/50 ML RTUPB IV SCH ×2 (09:41→12:54)
[2018-03-18] MEDS: METOPROLOL TARTRATE 25 MG TABLET PO SCH ×2 (09:42→22:42)
[2018-03-18] MEDS: ENOXAPARIN SODIUM INJ 40 MG/0.4 ML DISP.SYRIN SUBCUT SCH (09:44)
[2018-03-18] MEDS: MAGNESIUM HYDROXIDE SUSP 30 ML UDCUP PO SCH ×3 (09:44→17:37)
[2018-03-18] MEDS: POLYETHYLENE GLYCOL 3350 POWDER 17 GM/1 PACKET PO SCH (09:45)
[2018-03-18] MEDS: MULTIVITAMIN TABLET PO SCH (09:45)
[2018-03-18] MEDS: LISINOPRIL 10 MG TABLET PO SCH (09:46)
[2018-03-18] MEDS: FAMOTIDINE 20 MG TABLET PO SCH ×2 (09:47→22:42)
[2018-03-18] MEDS ORDERED: POTASSIUM CHLORIDE 20 MEQ/15 ML UDCUP PO ONE (16:30)
[2018-03-18] MEDS ORDERED: VANCOMYCIN HCL 0 MG in DEXTROSE 5%-WATER 250 ML IV NR (16:45)
--- NOTE | 2018-03-18 16:54 | PDOC PROGRESS REPORT ---
Subjective Progress Note for:: 03/18/18 Subjective:: The patient is a 57-year-old female with a past medical history of CAD, SD x2, hypertension, hyperlipidemia, COPD, DM 2, GERD, bipolar, depression, schizoaffective disorder who initially presented to the emergency department on 02/26/18 with a psychiatric complaint and spent 6 days on psych hold in the emergency department pending placement. Patient then began complaining of chest discomfort and so was referred to the hospitalist service for admission and management on 03/04/18. Cardiac workup revealed LVEF 30%. The patient was seen on morning rounds. She is found resting in bed comfortably on room air. She was awake and oriented to self only. She follows me with her eyes, smiles when I ask her questions but does not answer or follow directions. She does withdraw and smile when I check her plantar reflexes; nods her head yes when I tell her that she is ticklish. No facial asymmetry noted; moves all extremities spontaneously. ROS is limited secondary to altered mental status. No concerns per nursing. Reason For Visit: HYPERNATREMIA, URINARY RETENTION Physical Exam Vital Signs: Temp Pulse Resp BP Pulse Ox 98.4 F 77 18 122/64 93 03/18/18 10:46 03/18/18 14:00 03/18/18 10:46 03/18/18 10:46 03/18/18 10:46 Intake & Output 03/17/18 03/18/18 03/19/18 06:59 06:59 06:59 Intake Total 2307 1582 50 Output Total 2150 1925 Balance 157 -343 50 Weight 64.7 kg 64.7 kg General appearance: PRESENT: no acute distress, disheveled, well-developed, well-nourished Head exam: PRESENT: atraumatic, normocephalic Eye exam: PRESENT: conjunctiva pink, EOMI, PERRLA. ABSENT: scleral icterus Ear exam: PRESENT: normal external ear exam Mouth exam: PRESENT: moist, tongue midline Teeth exam: PRESENT: poor dentation Neck exam: ABSENT: carotid bruit, JVD, lymphadenopathy, thyromegaly Respiratory exam: PRESENT: clear to auscultation ailyn, symmetrical, unlabored. ABSENT: rales, rhonchi, wheezes Cardiovascular exam: PRESENT: RRR, +S1, +S2. ABSENT: diastolic murmur, rubs, systolic murmur Pulses: PRESENT: normal dorsalis pedis pul Vascular exam: PRESENT: normal capillary refill GI/Abdominal exam: PRESENT: normal bowel sounds, soft. ABSENT: distended, guarding, mass, organolmegaly, rebound, tenderness Rectal exam: PRESENT: deferred Gentrourinary exam: PRESENT: indwelling catheter Extremities exam: PRESENT: full ROM. ABSENT: calf tenderness, clubbing, pedal edema Neurological exam: PRESENT: alert, awake, oriented to person, CN II-XII grossly intact, other - Makes eye contact; does not answer questions/follow directions t arleth. Does smile when I check her plantar reflexes. Moves all extremities equally.. ABSENT: motor sensory deficit Skin exam: PRESENT: dry, warm, other - draining abscess to Rt clavical. ABSENT: cyanosis, rash Results Laboratory Results: 03/18/18 06:32 03/18/18 06:32 03/18/18 03/18/18 06:32 06:32 WBC 12.0 H RBC 5.03 Hgb 12.4 Hct 38.7 MCV 77 L MCH 24.6 L MCHC 32.0 RDW 21.0 H Plt Count 125 L Sodium 150.6 H Potassium 2.7 L* Chloride 116 H Carbon Dioxide 26 Anion Gap 9 BUN 39 H Creatinine 1.27 H Est GFR ( Amer) 52 L Est GFR (Non-Af Amer) 43 L Glucose 190 H Calcium 8.6 Total Bilirubin 1.7 H AST 31 ALT 23 Alkaline Phosphatase 123 Total Protein 5.7 L Albumin 2.4 L 03/14/18 23:10 Neck - Abscess Gram Stain - Final 03/14/18 23:10 Neck - Abscess Wound Culture - Final Staphylococcus Aureus Prevotella Species Peptostreptococcus Species 03/14/18 02:40 Stool - Stool Ova and Parasite Concentrate Exam - Final 03/14/18 02:40 Stool - Stool Ova and Parasites - Final 02/28/18 03/01/18 03/01/18 21:25 01:45 08:51 CK-MB (CK-2) Troponin I 0.069 0.063 0.068 03/04/18 03/04/18 03/04/18 11:43 15:30 20:48 CK-MB (CK-2) 2.03 Troponin I 0.055 0.048 0.044 03/05/18 03:10 CK-MB (CK-2) Troponin I 0.063 Impressions: Head CT 03/01/18 18:50 IMPRESSION: MILD CHRONIC CHANGES OF ATROPHY AND MICROVASCULAR ISCHEMIA. 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 NO ACUTE PROCESS. EVIDENCE OF ACUTE STROKE: NO. Abdomen/Pelvis CT 03/04/18 10:32 IMPRESSION: Small volume ascites. No additional evidence of acute intra- abdominal/pelvic process. Chest X-Ray 03/14/18 00:00 IMPRESSION: NO ACUTE RADIOGRAPHIC FINDING IN THE CHEST. Assessment & Plan - Diagnosis (1) Acute encephalopathy Is this a current diagnosis for this admission?: Yes Plan: Continued improvement in alertness and participation in conversation today. Unclear etiology; likely multifactorial secondary to hypernatremia, dehydration, hypertension, underlying mental health disorders (bipolar, schizoaffective disorder), and possibly hospital psychosis. Seems to have improved following placement of Osorio catheter and resolution of her urinary retention yesterday. Head CT (03/01/18) mild chronic changes of atrophy with microvascular ischemia and an old right parietal infarct but no acute processes. Urinalysis revealed urinary tract infection Depakote level is acceptable. AM cortisol level acceptable. Will check LFTs, ammonia, HIV, RPR, and Hepatitis panel in the AM. Will provide for patient safety; fall, aspiration precautions. Supportive care. Will treat UTI. Will correct electrolyte derangements. Psychiatric team re-consulted; have requested a [id number] assessment. Will obtain MRI if not improved tomorrow. (2) Hypernatremia Is this a current diagnosis for this admission?: Yes Plan: Plateaued IVF; 144.7--> 153.0--> 157.2--> 150.6--> 151.6--> 150.6 Continue 1/2 NS. Monitor closely for fluid volume overload given the patient's EF. Now taking small sips of water/fluid with supervision; aspiration precautions. Low sodium diet. Spoke with Dr. Hadley today; does not feel that there is an additional workup needed for hypernatremia/KIRSTEN. Confirms that the patient's current hyponatremia would not cause her decreased mental status. Serial chemistries. (3) Hypokalemia Is this a current diagnosis for this admission?: Yes Plan: Improving; secondary to poor p.o. intake. Continue replacement as needed. Serial chemistries. (4) Ischemic cardiomyopathy EF 30% Is this a current diagnosis for this admission?: Yes Plan: Echocardiogram revealed LVEF of 30% with severe global hypokinesis of the left ventricle, paradoxical septal wall motion consistent with right ventricular volume overload. She appears compensated without exacerbation at this time. We will continue medication regiment; lisinopril, metoprolol, daily aspirin, atorvastatin (5) HTN (hypertension) Qualifiers: Hypertension type: essential hypertension Qualified Code(s): I10 - Essential (primary) hypertension Is this a current diagnosis for this admission?: Yes Plan: Much improved today following addition of clonidine patch; 134/84. Patient is frequently noncompliant with oral medications (spitting them out); now with reduced p.o. intake which is further limiting her medication adherence. Continue lisinopril 5 mg daily. Have reduce metoprolol from 50 mg twice daily to 12.5 mg twice daily. Continue clonidine 0.1 mg/24hr transdermal patch. (6) Somnolence Is this a current diagnosis for this admission?: Yes Plan: Continues to improve; patient now is awake and oriented to self. Intermittently answering simple questions and following one-step simple commands. TSH normal. AM cortisol is acceptable. Continue to monitor. Remaining work up as above. (7) Dehydration Is this a current diagnosis for this admission?: Yes Plan: Secondary to poor p.o. intake and evidenced by hypernatremia. IV fluids as above. Continue to encourage p.o. fluids with 1:1 supervision. (8) Bipolar 1 disorder, depressed Is this a current diagnosis for this admission?: Yes Plan: Depakote 250 mg twice daily. Psychiatric re-consultation requested today. (9) Urine retention Is this a current diagnosis for this admission?: Yes Plan: Pt with bladder distention on exam; bladder scan demonstrated >999 mL. Osorio placed with 1300 mL output. Urinalysis positive for UTI. (10) UTI (urinary tract infection) Qualifiers: Urinary tract infection type: acute cystitis Hematuria presence: with hematuria Qualified Code(s): N30.01 - Acute cystitis with hematuria Is this a current diagnosis for this admission?: Yes Plan: Urinalysis positive for UTI. Urine culture shows staph aureus. Blood cultures pending. Patient received Rocephin x1. Given the patient's urine and matching wound culture results with decreased mental status, leukocytosis, low-grade fever; will treat aggressively. Antibiotics were escalated to IV Zosyn and vancomycin pending blood culture results. - Time Time Spent with patient: 35 or more minutes Medications reviewed and adjusted accordingly: Yes Anticipated discharge: SNF - Plan Summary Plan Summary: Over the patient's sister, Evelin, today; updated on the patient's course and plan of care. Have escalated IV antibiotics today; blood cultures pending. High suspicion that she will be bacteremic with staph aureus. Anticipate placing NG tube for tube feeds and free water flushes for nutrition and correction of hypernatremia and obtaining MRI of the head (consider neck as well given the location of the patient's abscess) tomorrow if her mentation has not improved.
[2018-03-18] MEDS: CEFTRIAXONE 1 GM/D5W RTU 1 GM/50 ML RTUPB IV SCH (17:36)
[2018-03-18] MEDS: PIPERACILLIN SODIUM/TAZOBACTAM 3.375 GM in NORMAL SALINE 100 ML IV SCH (18:48)
[2018-03-18] MEDS: VANCOMYCIN HCL 1,250 MG in DEXTROSE 5%-WATER 250 ML IV SCH (22:41)
[2018-03-18] MEDS: ASPIRIN 81 MG TABLET, CHEWABLE PO SCH (22:41)
[2018-03-18] MEDS: ATORVASTATIN CALCIUM 20 MG TABLET PO SCH (22:41)
[2018-03-18] MEDS: 1/2 NORMAL SALINE 1,000 ML IV PRN (22:43)
[2018-03-19] MEDS: PIPERACILLIN SODIUM/TAZOBACTAM 3.375 GM in NORMAL SALINE 100 ML IV SCH ×4 (00:56→18:57)
[2018-03-19] MEDS: DIVALPROEX SODIUM 125 MG CAP.SPRINK PO SCH ×2 (05:06→18:57)
[2018-03-19 06:06] LABS: HEMOGLOBIN 11.3 g/dL (12.0-15.5); MEAN CORPUSCULAR HEMOGLOBIN 24.5 pg (27.0-33.4); MEAN CORPUSCULAR HGB CONC 32.3 g/dL (32.0-36.0); MEAN CORPUSCULAR VOLUME 76 fl (80-97); PLATELET COUNT 179 10^3/uL (150-450); RED BLOOD COUNT 4.62 10^6/uL (3.72-5.28); RED CELL DISTRIBUTION WIDTH 21.4 % (11.5-14.0); WHITE BLOOD COUNT 11.8 10^3/uL (4.0-10.5)
[2018-03-19 06:30] LABS: ALANINE AMINOTRANSFERASE 28 U/L (9-52); ALBUMIN 2.3 g/dL (3.5-5.0); ALKALINE PHOSPHATASE 131 U/L (38-126); ANION GAP 6 (5-19); ASPARTATE AMINO TRANSFERASE 46 U/L (14-36); BILIRUBIN,DIRECT 1.5 mg/dL (0.0-0.4); BILIRUBIN,TOTAL 2.1 mg/dL (0.2-1.3); BLOOD UREA NITROGEN 34 mg/dL (7-20); CALCIUM 8.2 mg/dL (8.4-10.2); CARBON DIOXIDE 23 mmol/L (22-30); CHLORIDE 117 mmol/L (98-107); GLUCOSE 172 mg/dL (75-110); POTASSIUM 3.1 mmol/L (3.6-5.0); SODIUM 146.2 mmol/L (137-145); TOTAL PROTEIN 5.7 g/dL (6.3-8.2)
[2018-03-19] MEDS ORDERED: NORMAL SALINE 1000 ML 500 ML IV ONE (10:07)
[2018-03-19] MEDS ORDERED: PHARMACY COMMUNICATION ORDER MC NR (10:15)
[2018-03-19] MEDS ORDERED: MAGNESIUM HYDROXIDE SUSP 30 ML UDCUP NG SCH (11:00)
--- NOTE | 2018-03-19 12:07 | PDOC PROGRESS REPORT ---
Subjective Progress Note for:: 03/19/18 Subjective:: The patient is a 57-year-old female with a past medical history of CAD, [place] x2, hypertension, hyperlipidemia, COPD, DM 2, GERD, bipolar, depression, schizoaffective disorder who initially presented to the emergency department on 02/26/18 with a psychiatric complaint and spent 6 days on psych hold in the emergency department pending placement. Patient then began complaining of chest discomfort and so was referred to the hospitalist service for admission and management on 03/04/18. Cardiac workup revealed LVEF 30%. The patient was seen on morning rounds. She is found resting in bed comfortably on room air. She was awake and alert. She does not answer when I ask her name this morning. She follows me with her eyes, and makes occasional noises, but does not answer or follow directions. As before, she does withdraw and smile when I check her plantar reflexes. No facial asymmetry noted; moves all extremities spontaneously. ROS is limited secondary to altered mental status. Nursing reports that she was yelling last night during linen change (no words), but continues to refuse food and take minimal fluids by mouth. Reason For Visit: HYPERNATREMIA, URINARY RETENTION Physical Exam Vital Signs: Temp Pulse Resp BP Pulse Ox 98.0 F 89 20 152/82 H 94 03/19/18 08:00 03/19/18 08:00 03/19/18 08:00 03/19/18 08:00 03/19/18 08:00 Intake & Output 03/18/18 03/19/18 03/20/18 06:59 06:59 06:59 Intake Total 1582 1900 Output Total 1925 1600 Balance -343 300 Weight 64.7 kg 62.3 kg General appearance: PRESENT: no acute distress, disheveled, well-developed, well-nourished Head exam: PRESENT: atraumatic, normocephalic Eye exam: PRESENT: conjunctiva pink, EOMI, PERRLA. ABSENT: scleral icterus Ear exam: PRESENT: normal external ear exam Mouth exam: PRESENT: moist, tongue midline Neck exam: ABSENT: carotid bruit, JVD, lymphadenopathy, thyromegaly Respiratory exam: PRESENT: clear to auscultation ailyn, symmetrical, unlabored. ABSENT: rales, rhonchi, wheezes Cardiovascular exam: PRESENT: RRR, +S1, +S2. ABSENT: diastolic murmur, rubs, systolic murmur Pulses: PRESENT: normal dorsalis pedis pul Vascular exam: PRESENT: normal capillary refill GI/Abdominal exam: PRESENT: normal bowel sounds, soft. ABSENT: distended, guarding, mass, organolmegaly, rebound, tenderness Rectal exam: PRESENT: deferred Gentrourinary exam: PRESENT: indwelling catheter Extremities exam: PRESENT: full ROM. ABSENT: calf tenderness, clubbing, pedal edema Neurological exam: PRESENT: alert, awake, CN II-XII grossly intact, aphasic, other - Makes eye contact; does not answer questions/follow directions today. Does smile when I check her plantar reflexes. No facial asymmetry; moves all extremities equally. ABSENT: motor sensory deficit Skin exam: PRESENT: dry, warm, other - draining abscess to Rt clavical. ABSENT: cyanosis, rash Results Laboratory Results: 03/19/18 05:50 03/19/18 05:50 03/19/18 03/19/18 03/19/18 05:50 05:50 05:50 WBC 11.8 H RBC 4.62 Hgb 11.3 L Hct 35.0 L MCV 76 L MCH 24.5 L MCHC 32.3 RDW 21.4 H Plt Count 179 Sodium 146.2 H Potassium 3.1 L Chloride 117 H Carbon Dioxide 23 Anion Gap 6 BUN 34 H Creatinine 1.14 Est GFR ( Amer) 59 L Est GFR (Non-Af Amer) 49 L Glucose 172 H Calcium 8.2 L Total Bilirubin 2.1 H AST 46 H ALT 28 Alkaline Phosphatase 131 H Ammonia < 8.7 L Total Protein 5.7 L Albumin 2.3 L 03/16/18 17:20 Osorio Catheter Urine Culture - Final Staphylococcus Aureus 03/14/18 23:10 Neck - Abscess Gram Stain - Final 03/14/18 23:10 Neck - Abscess Wound Culture - Final Staphylococcus Aureus Prevotella Species Peptostreptococcus Species 02/28/18 03/01/18 03/01/18 21:25 01:45 08:51 CK-MB (CK-2) Troponin I 0.069 0.063 0.068 03/04/18 03/04/18 03/04/18 11:43 15:30 20:48 CK-MB (CK-2) 2.03 Troponin I 0.055 0.048 0.044 03/05/18 03:10 CK-MB (CK-2) Troponin I 0.063 Impressions: Head CT 03/01/18 18:50 IMPRESSION: MILD CHRONIC CHANGES OF ATROPHY AND MICROVASCULAR ISCHEMIA. 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 NO ACUTE PROCESS. EVIDENCE OF ACUTE STROKE: NO. Abdomen/Pelvis CT 03/04/18 10:32 IMPRESSION: Small volume ascites. No additional evidence of acute intra- abdominal/pelvic process. Chest X-Ray 03/14/18 00:00 IMPRESSION: NO ACUTE RADIOGRAPHIC FINDING IN THE CHEST. Assessment & Plan - Diagnosis (1) Acute encephalopathy Is this a current diagnosis for this admission?: Yes Plan: Plateaued; awake and alert today, makes eye contact and follows movement around the room but does not respond to questions or follow to commands. Unclear etiology; likely multifactorial secondary to hypernatremia, dehydration, hypertension, underlying mental health disorders (bipolar, schizoaffective disorder), and possibly hospital psychosis. Seems to have improved following placement of Osorio catheter and resolution of her urinary retention. Some concern for infection; wound culture and urine culture match, low-grade tempe rature. Head CT (03/01/18) mild chronic changes of atrophy with microvascular ischemia and an old right parietal infarct but no acute processes. Urinalysis revealed urinary tract infection Depakote level is acceptable. AM cortisol level acceptable. HIV negative RPR and hepatitis panel pending Will provide for patient safety; fall, aspiration precautions. Supportive care. Will treat UTI; antibiotics have been escalated to vancomycin and Zosyn Will correct electrolyte derangements. Psychiatric team re-consulted; have requested a [id number] assessment. (2) Hypernatremia Is this a current diagnosis for this admission?: Yes Plan: Improved; 146.2 today Change to NS. Have ordered tube feeds with free water flushes every 4 hours. farm general manager is consulted. Spoke with Dr. Hadley yesterday; does not feel that there is an additional workup needed for hypernatremia/KIRSTEN. Confirms that the patient's current hyponatremia would not cause her decreased mental status. Serial chemistries. (3) Hypokalemia Is this a current diagnosis for this admission?: Yes Plan: Improving; secondary to poor p.o. intake. Continue replacement as needed. Serial chemistries. (4) Ischemic cardiomyopathy EF 30% Is this a current diagnosis for this admission?: Yes Plan: Echocardiogram revealed LVEF of 30% with severe global hypokinesis of the left ventricle, paradoxical septal wall motion consistent with right ventricular volume overload. She appears compensated without exacerbation at this time. We will continue medication regiment; lisinopril, metoprolol, daily aspirin, atorvastatin (5) HTN (hypertension) Qualifiers: Hypertension type: essential hypertension Qualified Code(s): I10 - Essential (primary) hypertension Is this a current diagnosis for this admission?: Yes Plan: Improved. Patient is frequently noncompliant with oral medications (spitting them out); now with reduced p.o. intake which is further limiting her medication adherence. Feeding tube will be placed today which will assist with med administration. Continue lisinopril 5 mg daily. Have reduce metoprolol from 50 mg twice daily to 12.5 mg twice daily. Continue clonidine 0.1 mg/24hr transdermal patch. (6) Somnolence Is this a current diagnosis for this admission?: Yes Plan: Continues to improve; patient now is awake. Intermittently answering simple questions and following one-step simple commands. TSH normal. AM cortisol is acceptable. Continue to monitor. Remaining work up as above. (7) Dehydration Is this a current diagnosis for this admission?: Yes Plan: Resolved. Secondary to poor p.o. intake and evidenced by hypernatremia. IV fluids as above. Continue to encourage p.o. fluids with 1:1 supervision. Tube feeds start today. (8) Bipolar 1 disorder, depressed Is this a current diagnosis for this admission?: Yes Plan: Depakote 250 mg twice daily. Psychiatric re-consultation requested yesterday. (9) Urine retention Is this a current diagnosis for this admission?: Yes Plan: Pt with bladder distention on exam; bladder scan demonstrated >999 mL. Osorio placed with 1300 mL output. Urinalysis positive for UTI. (10) UTI (urinary tract infection) Qualifiers: Urinary tract infection type: acute cystitis Hematuria presence: with h ematuria Qualified Code(s): N30.01 - Acute cystitis with hematuria Is this a current diagnosis for this admission?: Yes Plan: Urinalysis positive for UTI. Urine culture shows staph aureus. Blood cultures pending. Patient received Rocephin x1. Given the patient's urine and matching wound culture results with decreased mental status, leukocytosis, low-grade fever; will treat aggressively. Antibiotics were escalated to IV Zosyn and vancomycin pending blood culture results. - Time Time Spent with patient: 15-24 minutes Medications reviewed and adjusted accordingly: Yes Anticipated discharge: SNF
[2018-03-19] MEDS: MAGNESIUM HYDROXIDE SUSP 30 ML UDCUP PO SCH (12:16)
[2018-03-19] MEDS: FAMOTIDINE 20 MG TABLET PO SCH (12:16)
[2018-03-19] MEDS: POLYETHYLENE GLYCOL 3350 POWDER 17 GM/1 PACKET PO SCH (12:16)
[2018-03-19] MEDS: METOPROLOL TARTRATE 25 MG TABLET NG SCH ×2 (12:19→23:03)
[2018-03-19] MEDS: LISINOPRIL 10 MG TABLET NG SCH (12:21)
[2018-03-19] MEDS: FAMOTIDINE 20 MG TABLET NG SCH ×2 (12:21→23:03)
[2018-03-19] MEDS: MULTIVITAMIN TABLET PO SCH (12:29)
[2018-03-19] MEDS ORDERED: POTASSIUM CHLORIDE 20 MEQ/15 ML UDCUP PO ONE (12:30)
[2018-03-19] MEDS: ENOXAPARIN SODIUM INJ 40 MG/0.4 ML DISP.SYRIN SUBCUT SCH (13:03)
[2018-03-19] MEDS: METOPROLOL TARTRATE 25 MG TABLET PO SCH (13:04)
[2018-03-19] MEDS: MULTIVITAMIN ORAL LIQUID 60 ML NG SCH (13:09)
[2018-03-19] MEDS: NORMAL SALINE 1000 ML 1,000 ML IV PRN ×2 (13:17→23:06)
--- NOTE | 2018-03-19 13:28 | RADIOLOGY REPORT (SQ) ---
EXAM DESCRIPTION: KUB/ABDOMEN (SINGLE VIEW) COMPLETED DATE/TIME: 03/19/2018 12:24 pm REASON FOR STUDY: Check Placement of NG Tube R44.3 HALLUCINATIONS, UNSPECIFIED F32.9 MAJOR DEPRESS ANGIE DISORDER, SINGLE EPISODE, UNSPECIFIED F20.9 SCHIZOPHRENIA, UNSPECIFIED COMPARISON: 02/15/2018. NUMBER OF VIEWS: One view. TECHNIQUE: Supine radiographic image of the abdomen acquired. LIMITATIONS: None. FINDINGS: BOWEL GAS PATTERN: Normal bowel gas pattern. No dilated loops. CALCIFICATIONS: No suspicious calcifications. SOFT TISSUES: No gross mass or suggestion of organomegaly. HARDWARE: Nasogastric tube with the tip in the stomach. BONES: No acute fracture. No worrisome bone lesions. OTHER: No other significant finding. IMPRESSION: NASOGASTRIC TUBE IN THE STOMACH. NO RADIOGRAPHIC EVIDENCE FOR ACUTE ABDOMINAL DISEASE. TECHNICAL DOCUMENTATION: JOB ID: [id number] [employer]- All Rights Reserved Reading location - IP/workstation name: [email or web address]
[2018-03-19] MEDS: LISINOPRIL 10 MG TABLET PO SCH (13:39)
[2018-03-19] MEDS: ATORVASTATIN CALCIUM 20 MG TABLET NG SCH (23:02)
[2018-03-19] MEDS: VANCOMYCIN HCL 1,250 MG in DEXTROSE 5%-WATER 250 ML IV SCH (23:03)
[2018-03-19] MEDS: ASPIRIN 81 MG TABLET, CHEWABLE NG SCH (23:03)
[2018-03-20] MEDS: PIPERACILLIN SODIUM/TAZOBACTAM 3.375 GM in NORMAL SALINE 100 ML IV SCH ×5 (01:10→23:00)
[2018-03-20] MEDS: DIVALPROEX SODIUM 125 MG CAP.SPRINK PO SCH ×2 (05:57→18:39)
[2018-03-20 07:06] LABS: ANION GAP 7 (5-19); BLOOD UREA NITROGEN 29 mg/dL (7-20); CALCIUM 8.1 mg/dL (8.4-10.2); CARBON DIOXIDE 26 mmol/L (22-30); CHLORIDE 117 mmol/L (98-107); GLUCOSE 166 mg/dL (75-110); PHOSPHORUS 2.8 mg/dL (2.5-4.5); POTASSIUM 3.3 mmol/L (3.6-5.0); SODIUM 149.8 mmol/L (137-145)
[2018-03-20 07:38] LABS: HEPATITIS A AB IGM Negative (Negative); HEPATITIS B CORE AB IGM Negative (Negative); HEPATITS B SURFACE ANTIGEN Negative (Negative)
[2018-03-20 08:07] LABS: HEMATOCRIT 39.3 % (36.0-47.0); HEMOGLOBIN 12.6 g/dL (12.0-15.5); MEAN CORPUSCULAR HEMOGLOBIN 24.5 pg (27.0-33.4); MEAN CORPUSCULAR VOLUME 77 fl (80-97); PLATELET COUNT 176 10^3/uL (150-450); RED BLOOD COUNT 5.14 10^6/uL (3.72-5.28); RED CELL DISTRIBUTION WIDTH 21.7 % (11.5-14.0); WHITE BLOOD COUNT 7.9 10^3/uL (4.0-10.5)
[2018-03-20] MEDS ORDERED: HALOPERIDOL LACTATE INJ 5 MG/1 ML VIAL IV PRN (10:06)
[2018-03-20] MEDS: LISINOPRIL 10 MG TABLET NG SCH (10:09)
[2018-03-20] MEDS: METOPROLOL TARTRATE 25 MG TABLET NG SCH ×2 (10:11→22:03)
[2018-03-20] MEDS: FAMOTIDINE 20 MG TABLET NG SCH ×2 (10:12→22:07)
[2018-03-20] MEDS: MULTIVITAMIN ORAL LIQUID 60 ML NG SCH (10:18)
[2018-03-20] MEDS: ENOXAPARIN SODIUM INJ 40 MG/0.4 ML DISP.SYRIN SUBCUT SCH (10:27)
[2018-03-20] MEDS ORDERED: KETOROLAC TROMETHAMINE INJ/PF 30 MG/1 ML SDV IV ONE (10:30)
[2018-03-20 10:45] LABS: HEPATITIS C VIRUS ANTIBODY <0.1 s/co ratio (0.0-0.9)
[2018-03-20] MEDS ORDERED: LORAZEPAM INJ 2 MG/1 ML VIAL IV PRN (11:53)
--- NOTE | 2018-03-20 14:06 | PSYCHOLOGICAL NOTE ---
Psych Note - Psych Note Date seen by psych provider: 03/20/18 Time seen by psych provider: 07:30 - Only quick chart review Psych Note: Reason for Consult: medication recommendations, evaluate decreased alertness Contact Permissions: Unknown Patient is a 57 year old female who presented to the ED 02/26/18 for hallucinations and AMS. She was seen in the ED by the Behavioral Health team on 02/17/18, no medications were recommended at that time and she was cleared from acute psychiatric services. Head CTs have language which suggest neurodegenerative processes and an old right infract which may be due to a previous stoke. She was admitted to hospitalist services on 03/04/18 for chest pain, Bipolar I Disorder, CAD, HTN, Schizophrenia, Hypthyroidism and Diabetes Mellitus II. Continued stay problems on 03/19/18 were acute encephalopathy, hypernatremia, hypokalemia, ischemic cardiomyopathy EF 30%, HTN, Somnolence, Dehydration, Bipolar I Disorder Depressed, Urine retention and UTI. Home psychiatric medication listed that may be of concern due to possible neurod egenerative processes include Klonopin and Seroquel. In addition to these Paxil was also listed. Psychiatric medications being administered in the hospital include Depakote Sprinkles 250MG Q12 scheduled. She was given one time Ativan 1MG IV today (03/20/18) at 1234 for MRI. Be mindful this may cause and/or exacerbate psychosis (hallucinations, delusions, paranoia), agitation and aggression given likely neurodegenerative processes, UTI and pre-existing MH. Also of importance is patient having hypothyroidism as it affects mood. TSH on 03/05/18 at 0310 was 4.60 (within range). Diagnosis: UTI Hypothyroidism 799.59 (R41.9) Unspecified Neurocognitive Disorder 296.80 (F31.9) Unspecified Bipolar and Related Disorder by history Medication recommendations made by the psychiatric medical provider, Dr. Kush MD., includes: Request current Depakote Level (03/04/18 at 1143 was 71.4; 03/01/18 at 1913 was 58.4) The trending upward should continue for therapeutic levels Treating physicians are asked to avoid the use of Benzodiazepines (Ativan, , Klonopin, Xanax, Valium), Antipsychotics (Haldol, Geodon, Zyprexa), some sleep aid especially in high dosages (Ambien, Lunesta, Seroquel, Trazodone), narcotic pain medications and prolonged use of sterods as these have been known to cause and/or exacerbate psychosis (hallucinations, delusions, paranoia), agitation and aggression in individuals with neurodegenerative processes. There was Hypothyroidism listed as a problem at admission. On 03/05/18 levels were okay. Impression/Plan: Patient is cleared from acute psychiatric services. She has a pre-existing MH diagnosis (the Depakote is meant to manage this/mood), a UTI and likely neurodegenerative processes. Hypothyroidism may be part of the issue if she in fact has it and her levels are off. Recommendation includes treatment of UTI if still present, check thyroid levels to make sure no changes and check Depakote Level to ensure therapeutic. Patient would benefit from neurology follow up. Consulted with Dr. Armenta regarding the management and care of patient. Attending Hospitalist aware of recommendations. She noted patient was doing much better and prior presentation may have been due to infection.
--- NOTE | 2018-03-20 14:21 | RADIOLOGY REPORT (SQ) ---
EXAM DESCRIPTION: MRI HEAD WITHOUT COMPLETED DATE/TIME: 03/20/2018 2:05 pm REASON FOR STUDY: NGUYEN, AMS, bacteremia R44.3 HALLUCINATIONS, UNSPECIFIED F32.9 MAJOR DEPRESSIVE DIS ORDER, SINGLE EPISODE, UNSPECIFIED F20.9 SCHIZOPHRENIA, UNSPECIFIED COMPARISON: CT head dated 03/01/2018, 02/26/2018, and 12/12/2016. TECHNIQUE: Multiplanar imaging includes non-contrasted T1, T2, FLAIR, and diffusion with ADC map seq uences. Images stored on PACS. LIMITATIONS: None. FINDINGS: ANATOMY: No anomalies. Normal vascular flow voids. Pituitary fossa normal. CSF SPACES: Atrophy induced prominence of ventricles and CSF spaces. CEREBRUM: High signal intensity lesions scattered throughout the white matter on FLAIR imaging with d istribution suggesting micro-vascular ischemic changes. Focal areas of increased white matter signal in the posterior right parietal lobe. No evidence of hemorrhage, mass, or extraaxial fluid collecti on. POSTERIOR FOSSA: No signal alteration. No hemorrhage. No edema, masses or mass effect. Internal deepa tory canals, cerebello-pontine angles, mastoids normal. DIFFUSION IMAGING: Negative for acute or sub-acute infarction. ORBITS: No masses. Globes normal. PARANASAL SINUSES: No fluid levels. Mucosa normal. OTHER: No other significant finding. IMPRESSION: ATROPHY AND CHRONIC MICRO-VASCULAR ISCHEMIC CHANGES. FOCAL AREAS OF ABNORMAL WHITE [place]ACEY ER SIGNAL IN THE POSTERIOR RIGHT PARIETAL LOBE CORRESPONDING TO SIMILAR FINDINGS ON PRIOR CT, CONSIST ENT WITH OLD INFARCT. NO ACUTE FINDINGS. EVIDENCE OF ACUTE STROKE: NO. TECHNICAL DOCUMENTATION: JOB ID: [id number] [facility]- All Rights Reserved Reading location - IP/workstation name: [email or web address]
--- NOTE | 2018-03-20 14:26 | RADIOLOGY REPORT (SQ) ---
EXAM DESCRIPTION: MRI CERVICAL SPINE WITHOUT COMPLETED DATE/TIME: 03/20/2018 2:05 pm REASON FOR STUDY: NGUYEN, AMS, bacteremia R44.3 HALLUCINATIONS, UNSPECIFIED F32.9 MAJOR DEPRESSIVE DIS ORDER, SINGLE EPISODE, UNSPECIFIED F20.9 SCHIZOPHRENIA, UNSPECIFIED COMPARISON: None. TECHNIQUE: Sagittal and Axial imaging includes T1, T2, STIR and gradient echo sequences. LIMITATIONS: None. FINDINGS: ALIGNMENT: Normal. VERTEBRAE: Intact. BONE MARROW: Normal. No marrow replacement or reactive changes. DISCS: Normal. No significant abnormal signal or loss of height. HARDWARE: None in the spine. CORD AND BASE OF BRAIN: Normal in size and signal intensity. SOFT TISSUES: No soft tissue masses. C1-C2: No significant spinal stenosis. C2-C3: No significant spinal stenosis or exit foraminal stenosis. C3-C4: No significant spinal stenosis or exit foraminal stenosis. C4-C5: No significant spinal stenosis or exit foraminal stenosis. C5-C6: No significant spinal stenosis or exit foraminal stenosis. C6-C7: No significant spinal stenosis or exit foraminal stenosis. C7-T1: No significant spinal stenosis or exit foraminal stenosis. UPPER THORACIC: Incompletely imaged. No significant spinal stenosis or exit foraminal stenosis. OTHER: No other significant finding. IMPRESSION: NORMAL MRI CERVICAL SPINE. TECHNICAL DOCUMENTATION: JOB ID: [id number]- All Rights Reserved Reading location - IP/workstation name: [email or web address]
--- NOTE | 2018-03-20 14:48 | PDOC PROGRESS REPORT ---
Subjective Progress Note for:: 03/20/18 Subjective:: The patient is a 57-year-old female with a past medical history of CAD, [place] x2, hypertension, hyperlipidemia, COPD, DM 2, GERD, bipolar, depression, schizoaffective disorder who initially presented to the emergency department on 02/26/18 with a psychiatric complaint and spent 6 days on psych hold in the emergency department pending placement. Patient then began complaining of chest discomfort and so was referred to the hospitalist service for admission and management on 03/04/18. Cardiac workup revealed LVEF 30%. The patient was seen on morning rounds. She is found resting in bed comfortably on room air. She was awake and alert; she does not answer when I ask her name. She does tell me that she has a headache and asks me what medication I might be able to give her. Her speech is sluggish, haulting, with incomplete words and sentences, however very easy to understand. She nods her head yes when I asked her if turning the lights off will help, and she does smile after I do so. She was noted to move all extremities spontaneously, but does not follow directions when I asked her to move her toes or to squeeze my hands. Despite this, her alertness is significantly improved from yesterday. ROS is limited secondary to altered mental status. No concerns per nursing. Reason For Visit: HYPERNATREMIA, URINARY RETENTION Physical Exam Vital Signs: Temp Pulse Resp BP Pulse Ox 98.1 F 69 15 136/95 H 99 03/20/18 11:50 03/20/18 11:50 03/20/18 11:50 03/20/18 11:50 03/20/18 11:50 Intake & Output 03/19/18 03/20/18 03/21/18 06:59 06:59 06:59 Intake Total 1900 2733 1060 Output Total 1600 1220 Balance 300 1513 1060 Weight 62.3 kg 64.8 kg General appearance: PRESENT: no acute distress, well-developed, well-nourished Head exam: PRESENT: atraumatic, normocephalic Eye exam: PRESENT: conjunctiva pink, EOMI, PERRLA. ABSENT: scleral icterus Ear exam: PRESENT: normal external ear exam Mouth exam: PRESENT: moist, tongue midline Neck exam: ABSENT: carotid bruit, JVD, lymphadenopathy, thyromegaly Respiratory exam: PRESENT: clear to auscultation ailyn, symmetrical, unlabored. ABSENT: rales, rhonchi, wheezes Cardiovascular exam: PRESENT: RRR. ABSENT: diastolic murmur, rubs, systolic murmur Pulses: PRESENT: normal dorsalis pedis pul Vascular exam: PRESENT: normal capillary refill GI/Abdominal exam: PRESENT: normal bowel sounds, soft, other - Tube feeds via NG tube. ABSENT: distended, guarding, mass, organolmegaly, rebound, tenderness Rectal exam: PRESENT: deferred Gentrourinary exam: PRESENT: indwelling catheter Extremities exam: PRESENT: full ROM. ABSENT: calf tenderness, clubbing, pedal edema Neurological exam: PRESENT: alert, awake, CN II-XII grossly intact, other - Did not answer most questions or follow commands; however was able to express to me that she had a headache and indicated turning off the lights was helpful. No facial asymmetry noted; moves all extremities spontaneously.. ABSENT: motor sensory deficit Skin exam: PRESENT: dry, intact, warm. ABSENT: cyanosis, rash Results Laboratory Results: 03/20/18 06:48 03/20/18 06:48 03/20/18 03/20/18 06:48 06:48 WBC 7.9 RBC 5.14 Hgb 12.6 Hct 39.3 MCV 77 L MCH 24.5 L MCHC 32.0 RDW 21.7 H Plt Count 176 Sodium 149.8 H Potassium 3.3 L Chloride 117 H Carbon Dioxide 26 Anion Gap 7 BUN 29 H Creatinine 1.06 Est GFR ( Amer) > 60 Est GFR (Non-Af Amer) 53 L Glucose 166 H Calcium 8.1 L Phosphorus 2.8 Magnesium 1.9 02/28/18 03/01/18 03/01/18 21:25 01:45 08:51 CK-MB (CK-2) Troponin I 0.069 0.063 0.068 03/04/18 03/04/18 03/04/18 11:43 15:30 20:48 CK-MB (CK-2) 2.03 Troponin I 0.055 0.048 0.044 03/05/18 03:10 CK-MB (CK-2) Troponin I 0.063 Impressions: Head CT 03/01/18 18:50 IMPRESSION: MILD CHRONIC CHANGES OF ATROPHY AND MICROVASCULAR ISCHEMIA. 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 NO ACUTE PROCESS. EVIDENCE OF ACUTE STROKE: NO. Abdomen/Pelvis CT 03/04/18 10:32 IMPRESSION: Small volume ascites. No additional evidence of acute intra- abdominal/pelvic process. Chest X-Ray 03/14/18 00:00 IMPRESSION: NO ACUTE RADIOGRAPHIC FINDING IN THE CHEST. KUB X-Ray 03/19/18 10:09 IMPRESSION: NASOGASTRIC TUBE IN THE STOMACH. NO RADIOGRAPHIC EVIDENCE FOR ACUTE ABDOMINAL DISEASE. Cervical Spine MRI 03/20/18 00:00 IMPRESSION: NORMAL MRI CERVICAL SPINE. Head MRI 03/20/18 00:00 IMPRESSION: ATROPHY AND CHRONIC MICRO-VASCULAR ISCHEMIC CHANGES. FOCAL AREAS OF ABNORMAL WHITE MATTER SIGNAL IN THE POSTERIOR RIGHT PARIETAL LOBE CORRESPONDING TO SIMILAR FINDINGS ON PRIOR CT, CONSISTENT WITH OLD INFARCT. NO ACUTE FINDINGS. EVIDENCE OF ACUTE STROKE: NO. Assessment & Plan - Diagnosis (1) Acute encephalopathy Is this a current diagnosis for this admission?: Yes Plan: Plateaued; awake and alert today, makes eye contact and follows movement around the room but does not respond to questions or follow to commands. Unclear etiology; likely multifactorial secondary to hypernatremia, dehydration, hypertension, underlying mental health disorders (bipolar, schizoaffective disorder), and possibly hospital psychosis. Seems to have improved following placement of Osorio catheter and resolution of her urinary retention. Some concern for infection; wound culture and urine culture match, low-grade temperature. Head CT (03/01/18) mild chronic changes of atrophy with microvascular ischemia and an old right parietal infarct but no acute processes. Urinalysis revealed urinary tract infection Depakote level is acceptable; will recheck with a.m. lab work. AM cortisol level acceptable. HIV negative Hepatitis panel is negative RPR pending And contrasted MRI of the head today demonstrated atrophy and chronic microvascular ischemic changes with old CVA injury to the posterior right parietal lobe. No acute findings. Will provide for patient safety; fall, aspiration precautions. Supportive care. Will treat UTI; antibiotics have been escalated to vancomycin and Zosyn; day #3. Will correct electrolyte derangements. Psychiatric team re-consulted; have requested to recheck Depakote levels. Believe the patient's reduced mental status likely related to an acute infectious process in the setting of early onset dementia (reference MRI results demonstrating atrophy and chronic microvascular changes/CVA). (2) Hypernatremia Is this a current diagnosis for this admission?: Yes Plan: Improved; 149.8 today IVF discontinued Have ordered tube feeds with free water flushes every hourly (reference registered diet technician's note). nutritionalist is consulted. Previously spoke with Dr. Hadley; does not feel that there is an additional workup needed for hypernatremia/KIRSTEN. Confirms that the patient's current hyponatremia would not cause her decreased mental status. Serial chemistries. (3) Hypokalemia Is this a current diagnosis for this admission?: Yes Plan: Improving; secondary to poor p.o. intake. Continue replacement as needed. Now receiving enteral nutrition via tube feeds. Serial chemistries. (4) Ischemic cardiomyopathy EF 30% Is this a current diagnosis for this admission?: Yes Plan: Echocardiogram revealed LVEF of 30% with severe global hypokinesis of the left ventricle, paradoxical septal wall motion consistent with right ventricular volume overload. She appears compensated without exacerbation at this time. We will continue medication regiment; lisinopril, metoprolol, daily aspirin, atorvastatin (5) HTN (hypertension) Qualifiers: Hypertension type: essential hypertension Qualified Code(s): I10 - Essential (primary) hypertension Is this a current diagnosis for this admission?: Yes Plan: Improved. Patient is frequently noncompliant with oral medications (spitting them out); now with reduced p.o. intake which is further limiting her medication adherence. Feeding tube will be placed today which will assist with med administration. Continue lisinopril 5 mg daily and metoprolol 12.5 mg twice daily. Continue clonidine 0.1 mg/24hr transdermal patch. (6) Somnolence Is this a current diagnosis for this admission?: Yes Plan: Continues to improve; patient now is awake. Intermittently answering simple questions and following one-step simple commands. TSH normal. AM cortisol is acceptable. Continue to monitor. Remaining work up as above. (7) Dehydration Is this a current diagnosis for this admission?: Yes Plan: Resolved. Secondary to poor p.o. intake and evidenced by hypernatremia and KIRSTEN. Tube feeds and free water flushes. Continue to encourage p.o. fluids with 1:1 supervision. (8) Bipolar 1 disorder, depressed Is this a current diagnosis for this admission?: Yes Plan: Will check Depakote level with AM labs. Depakote 250 mg twice daily. (9) Urine retention Is this a current diagnosis for this admission?: Yes Plan: Pt with bladder distention on exam; bladder scan demonstrated >999 mL. Osorio placed with 1300 mL output. Urinalysis positive for UTI. (10) UTI (urinary tract infection) Qualifiers: Urinary tract infection type: acute cystitis Hematuria presence: with hematuria Qualified Code(s): N30.01 - Acute cystitis with hematuria Is this a current diagnosis for this admission?: Yes Plan: Urinalysis positive for UTI. Urine culture shows staph aureus. Blood cultures show gram (+) cocci in 1/4 bottles. Patient received Rocephin x1. Given the patient's urine and matching wound culture results with decreased mental status, leukocytosis, low-grade fever; will treat aggressively. Antibiotics were escalated to IV Zosyn and vancomycin pending blood culture results. Day #3. - Time Time Spent with patient: 25-34 minutes Medications reviewed and adjusted accordingly: Yes Anticipated discharge: SNF
[2018-03-20] MEDS ORDERED: POTASSIUM CHLORIDE 20 MEQ/15 ML UDCUP PO ONE (15:00)
[2018-03-20] MEDS: VANCOMYCIN HCL 1,250 MG in DEXTROSE 5%-WATER 250 ML IV SCH (19:53)
[2018-03-20] MEDS: ASPIRIN 81 MG TABLET, CHEWABLE NG SCH (22:07)
[2018-03-20] MEDS: ATORVASTATIN CALCIUM 20 MG TABLET NG SCH (22:07)
[2018-03-21] MEDS: PIPERACILLIN SODIUM/TAZOBACTAM 3.375 GM in NORMAL SALINE 100 ML IV SCH ×3 (05:26→19:00)
[2018-03-21] MEDS ORDERED: VALPROATE SODIUM SYRUP 250 MG/5 ML UDCUP ONE (05:59)
[2018-03-21] MEDS: VALPROATE SODIUM SYRUP 250 MG/5 ML UDCUP PO SCH ×2 (06:09→19:04)
[2018-03-21 07:28] LABS: ANION GAP 8 (5-19); BLOOD UREA NITROGEN 34 mg/dL (7-20); CALCIUM 8.2 mg/dL (8.4-10.2); CARBON DIOXIDE 23 mmol/L (22-30); CHLORIDE 119 mmol/L (98-107); GLUCOSE 149 mg/dL (75-110); PHOSPHORUS 3.4 mg/dL (2.5-4.5); POTASSIUM 3.8 mmol/L (3.6-5.0); SODIUM 149.9 mmol/L (137-145)
[2018-03-21] MEDS ORDERED: DEXTROSE 5%-WATER 1000 ML 1,000 ML IV PRN (08:13)
[2018-03-21] MEDS: POTASSIUM CHLORIDE 20 MEQ/15 ML UDCUP PO SCH (11:31)
[2018-03-21] MEDS: ENOXAPARIN SODIUM INJ 40 MG/0.4 ML DISP.SYRIN SUBCUT SCH (11:31)
[2018-03-21] MEDS: FAMOTIDINE 20 MG TABLET NG SCH ×2 (11:31→22:24)
[2018-03-21] MEDS: LISINOPRIL 10 MG TABLET NG SCH (11:31)
[2018-03-21] MEDS: POLYETHYLENE GLYCOL 3350 POWDER 17 GM/1 PACKET NG SCH (11:31)
[2018-03-21] MEDS: METOPROLOL TARTRATE 25 MG TABLET NG SCH ×2 (11:32→22:24)
[2018-03-21] MEDS: MULTIVITAMIN ORAL LIQUID 60 ML NG SCH (11:37)
[2018-03-21 14:45] LABS: ANION GAP 8 (5-19); BLOOD UREA NITROGEN 32 mg/dL (7-20); CALCIUM 8.1 mg/dL (8.4-10.2); CARBON DIOXIDE 22 mmol/L (22-30); CHLORIDE 120 mmol/L (98-107); GLUCOSE 140 mg/dL (75-110); POTASSIUM 4.6 mmol/L (3.6-5.0); SODIUM 149.5 mmol/L (137-145)
--- NOTE | 2018-03-21 18:30 | PDOC PROGRESS REPORT ---
Subjective Progress Note for:: 03/21/18 Subjective:: The patient is a 57-year-old female with a past medical history of CAD, [place] x2, hypertension, hyperlipidemia, COPD, DM 2, GERD, bipolar, depression, schizoaffective disorder who initially presented to the emergency department on 02/26/18 with a psychiatric complaint and spent 6 days on psych hold in the emergency department pending placement. Patient then began complaining of chest discomfort and so was referred to the hospitalist service for admission and management on 03/04/18. Cardiac workup revealed LVEF 30%. The patient was seen on morning rounds. She is found resting in bed comfortably on room air. She was awake and alert; she does not answer when I ask her name. She does make eye contact, follows me as I move about the room, and mutters conversationally; however, am unable to understand her today. She appears to be more comfortable; less facial grimacing and frowning today. ROS is limited secondary to altered mental status. No concerns per nursing. Reason For Visit: HYPERNATREMIA, URINARY RETENTION Physical Exam Vital Signs: Temp Pulse Resp BP Pulse Ox 98.2 F 79 18 138/76 H 97 03/21/18 10:56 03/21/18 10:56 03/21/18 10:56 03/21/18 10:56 03/21/18 10:56 Intake & Output 03/20/18 03/21/18 03/22/18 06:59 06:59 06:59 Intake Total 2733 1710 Output Total 1220 Balance 1513 1710 Weight 64.8 kg 72.5 kg General appearance: PRESENT: no acute distress, well-developed, well-nourished, other - Chronically ill-appearing Head exam: PRESENT: atraumatic, normocephalic Eye exam: PRESENT: conjunctiva pink, EOMI, PERRLA. ABSENT: scleral icterus Ear exam: PRESENT: normal external ear exam Mouth exam: PRESENT: moist, tongue midline Neck exam: ABSENT: carotid bruit, JVD, lymphadenopathy, thyromegaly Respiratory exam: PRESENT: clear to auscultation ailyn, stridor, symmetrical. ABSENT: rales, rhonchi, wheezes Cardiovascular exam: PRESENT: RRR. ABSENT: diastolic murmur, rubs, systolic murmur Pulses: PRESENT: normal dorsalis pedis pul Vascular exam: PRESENT: normal capillary refill GI/Abdominal exam: PRESENT: normal bowel sounds, soft, other - NG tube. ABSENT: distended, guarding, mass, organolmegaly, rebound, tenderness Rectal exam: PRESENT: deferred Extremities exam: PRESENT: full ROM. ABSENT: calf tenderness, clubbing, pedal edema Neurological exam: PRESENT: alert, awake, CN II-XII grossly intact, other - Does not answer questions or follow commands today; does make eye contact and mutters/incomprehensible speech. ABSENT: motor sensory deficit Skin exam: PRESENT: dry, intact, warm, other - Draining abscess right clavicle. ABSENT: cyanosis, rash Results Laboratory Results: 03/20/18 06:48 03/21/18 14:13 03/21/18 03/21/18 06:40 14:13 Sodium 149.9 H 149.5 H Potassium 3.8 4.6 Chloride 119 H 120 H Carbon Dioxide 23 22 Anion Gap 8 8 BUN 34 H 32 H Creatinine 0.95 0.93 Est GFR ( Amer) > 60 > 60 Est GFR (Non-Af Amer) > 60 > 60 Glucose 149 H 140 H Calcium 8.2 L 8.1 L Phosphorus 3.4 Magnesium 2.1 03/18/18 16:45 Blood Blood Culture - Final Staphylococcus Aureus 02/28/18 03/01/18 03/01/18 21:25 01:45 08:51 CK-MB (CK-2) Troponin I 0.069 0.063 0.068 03/04/18 03/04/18 03/04/18 11:43 15:30 20:48 CK-MB (CK-2) 2.03 Troponin I 0.055 0.048 0.044 03/05/18 03:10 CK-MB (CK-2) Troponin I 0.063 Impressions: Head CT 03/01/18 18:50 IMPRESSION: MILD CHRONIC CHANGES OF ATROPHY AND MICROVASCULAR ISCHEMIA. 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 NO ACUTE PROCESS. EVIDENCE OF ACUTE STROKE: NO. Abdomen/Pelvis CT 03/04/18 10:32 IMPRESSION: Small volume ascites. No additional evidence of acute intra- abdominal/pelvic process. Chest X-Ray 03/14/18 00:00 IMPRESSION: NO ACUTE RADIOGRAPHIC FINDING IN THE CHEST. KUB X-Ray 03/19/18 10:09 IMPRESSION: NASOGASTRIC TUBE IN THE STOMACH. NO RADIOGRAPHIC EVIDENCE FOR ACUTE ABDOMINAL DISEASE. Cervical Spine MRI 03/20/18 00:00 IMPRESSION: NORMAL MRI CERVICAL SPINE. Head MRI 03/20/18 00:00 IMPRESSION: ATROPHY AND CHRONIC MICRO-VASCULAR ISCHEMIC CHANGES. FOCAL AREAS OF ABNORMAL WHITE MATTER SIGNAL IN THE POSTERIOR RIGHT PARIETAL LOBE CORRESPONDING TO SIMILAR FINDINGS ON PRIOR CT, CONSISTENT WITH OLD INFARCT. NO ACUTE FINDINGS. EVIDENCE OF ACUTE STROKE: NO. Assessment & Plan - Diagnosis (1) Acute encephalopathy Is this a current diagnosis for this admission?: Yes Plan: Plateaued; awake and alert today, makes eye contact and follows movement around the room but does not respond to questions or follow to commands. Unclear etiology; likely multifactorial secondary to hypernatremia, dehydration, hypertension, underlying mental health disorders (bipolar, schizoaffective disor blanche), and possibly hospital psychosis. Some concern for infection; wound culture and urine culture match, low-grade temperature. Head CT (03/01/18) mild chronic changes of atrophy with microvascular ischemia and an old right parietal infarct but no acute processes. 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 Urinalysis revealed urinary tract infection Depakote level low; now receiving via NG tube AM cortisol level acceptable. HIV negative Hepatitis panel is negative RPR pending Will provide for patient safety; fall, aspiration precautions. Supportive care. Will treat UTI; antibiotics have been escalated to vancomycin and Zosyn; day #4. Will correct electrolyte derangements. Psychiatric team re-consulted; the patient's reduced mental status likely related to an acute infectious process in the setting of early onset dementia (reference MRI results demonstrating atrophy and chronic microvascular changes/CVA). If patient does not demonstrate improvement within the next 24-48 hours (following 5-day course of antibiotic therapy) may need to have a goal of care discussion with the patient's family members. Psychiatry strongly feels that the patient's current mental status is related to advancing dementia. Patient may benefit from palliative care/hospice consultation. (2) Hypernatremia Is this a current diagnosis for this admission?: Yes Plan: Improved; 149.5 today IVF discontinued Have ordered tube feeds with free water flushes every hourly (reference ceo and co founder's note); delay in initiating. Verified with nursing today that free water flushes have been started. mill house supervisor is consulted. Previously spoke with Dr. Hadley; does not feel that there is an additional workup needed for hypernatremia/KIRSTEN. Confirms that the patient's current hyponatremia would not cause her decreased mental status. Serial chemistries. (3) Hypokalemia Is this a current diagnosis for this admission?: Yes Plan: Replete; secondary to poor p.o. intake. Continue replacement as needed. Now receiving enteral nutrition via tube feeds. Serial chemistries. (4) Ischemic cardiomyopathy EF 30% Is this a current diagnosis for this admission?: Yes Plan: Echocardiogram revealed LVEF of 30% with severe global hypokinesis of the left ventricle, paradoxical septal wall motion consistent with right ventricular volume overload. She appears compensated without exacerbation at this time. We will continue medication regiment; lisinopril, metoprolol, daily aspirin, atorvastatin (5) HTN (hypertension) Qualifiers: Hypertension type: essential hypertension Qualified Code(s): I10 - Essential (primary) hypertension Is this a current diagnosis for this admission?: Yes Plan: Normotensive today. Patient is frequently noncompliant with oral medications (spitting them out); now with reduced p.o. intake which is further limiting her medication adherence. Feeding tube will be placed today which will assist with med administration. Continue lisinopril 5 mg daily and metoprolol 12.5 mg twice daily. Continue clonidine 0.1 mg/24hr transdermal patch. (6) Somnolence Is this a current diagnosis for this admission?: Yes Plan: Continues to improve; patient now is awake. Intermittently answering simple questions and following one-step simple commands. TSH normal. AM cortisol is acceptable. Continue to monitor. Remaining work up as above. (7) Dehydration Is this a current diagnosis for this admission?: Yes Plan: Resolved. Secondary to poor p.o. intake and evidenced by hypernatremia and KIRSTEN. Tube feeds and free water flushes. Continue to encourage p.o. fluids with 1:1 supervision. (8) Bipolar 1 disorder, depressed Is this a current diagnosis for this admission?: Yes Plan: Subtherapeutic; however, no receiving via NG tube. Depakote 250 mg twice daily. (9) Urine retention Is this a current diagnosis for this admission?: Yes Plan: Pt with bladder distention on exam; bladder scan demonstrated >999 mL. Urinalysis positive for UTI. Bladder scan every 6 hours; straight cath for >200 mL (10) UTI (urinary tract infection) Qualifiers: Urinary tract infection type: acute cystitis Hematuria presence: with hematuria Qualified Code(s): N30.01 - Acute cystitis with hematuria Is this a current diagnosis for this admission?: Yes Plan: Urinalysis positive for UTI. Urine culture shows staph aureus. Blood cultures shows staph aureus. Patient received Rocephin x1. Given the patient's urine and matching wound culture results with decreased mental status, leukocytosis, low-grade fever; antibiotics were escalated to IV Zosyn and vancomycin pending blood culture results. Day #4. - Time Time Spent with patient: 15-24 minutes Medications reviewed and adjusted accordingly: Yes Anticipated discharge: SNF
[2018-03-21 20:25] LABS: VANCOMYCIN,TROUGH 13.1 ug/mL (5.0-20.0)
[2018-03-21] MEDS: VANCOMYCIN HCL 1,250 MG in DEXTROSE 5%-WATER 250 ML IV SCH (20:43)
[2018-03-21] MEDS: ATORVASTATIN CALCIUM 20 MG TABLET NG SCH (22:24)
[2018-03-21] MEDS: ASPIRIN 81 MG TABLET, CHEWABLE NG SCH (22:24)
[2018-03-22] MEDS: PIPERACILLIN SODIUM/TAZOBACTAM 3.375 GM in NORMAL SALINE 100 ML IV SCH ×4 (01:02→17:37)
[2018-03-22] MEDS: VALPROATE SODIUM SYRUP 250 MG/5 ML UDCUP PO SCH ×2 (05:13→17:37)
[2018-03-22 06:39] LABS: HEMATOCRIT 36.2 % (36.0-47.0); HEMOGLOBIN 11.5 g/dL (12.0-15.5); MEAN CORPUSCULAR HEMOGLOBIN 24.5 pg (27.0-33.4); MEAN CORPUSCULAR HGB CONC 31.8 g/dL (32.0-36.0); MEAN CORPUSCULAR VOLUME 77 fl (80-97); PLATELET COUNT 215 10^3/uL (150-450); RED CELL DISTRIBUTION WIDTH 22.1 % (11.5-14.0); WHITE BLOOD COUNT 7.2 10^3/uL (4.0-10.5)
[2018-03-22 09:40] LABS: ANION GAP 8 (5-19); BLOOD UREA NITROGEN 28 mg/dL (7-20); CALCIUM 8.2 mg/dL (8.4-10.2); CARBON DIOXIDE 24 mmol/L (22-30); CHLORIDE 118 mmol/L (98-107); GLUCOSE 144 mg/dL (75-110); PHOSPHORUS 3.7 mg/dL (2.5-4.5); POTASSIUM 3.8 mmol/L (3.6-5.0); SODIUM 149.5 mmol/L (137-145)
[2018-03-22] MEDS: CLONIDINE 0.1 MG/24 HR PATCH.TDWK TD SCH (11:09)
[2018-03-22] MEDS: POTASSIUM CHLORIDE 20 MEQ/15 ML UDCUP PO SCH (11:12)
[2018-03-22] MEDS: FAMOTIDINE 20 MG TABLET NG SCH ×2 (11:12→22:49)
[2018-03-22] MEDS: LISINOPRIL 10 MG TABLET NG SCH (11:12)
[2018-03-22] MEDS: MULTIVITAMIN ORAL LIQUID 60 ML NG SCH (11:13)
[2018-03-22] MEDS: METOPROLOL TARTRATE 25 MG TABLET NG SCH ×2 (11:14→22:48)
[2018-03-22] MEDS: POLYETHYLENE GLYCOL 3350 POWDER 17 GM/1 PACKET NG SCH (11:14)
[2018-03-22] MEDS: ENOXAPARIN SODIUM INJ 40 MG/0.4 ML DISP.SYRIN SUBCUT SCH (11:16)
--- NOTE | 2018-03-22 15:09 | Progress Note ---
Provider Note Provider Note: ID Consult Note Asked by Pharmacy to review patient's chart. Pt not seen or examined. Ms. Enrique 57 year old woman with PMH including bipolar disorder, CVA, CAD, ischemic cardiomyopathy, HTN, HLD, CKD, COPD, DM, hypothyroidism, and GERD who initially presented to the ED on 02/26/18 for psychiatric admission but then complained of CP and was transferred to the hospitalist service for further management. Apart from features of her psychiatric illness, her exam has been noted to be unremarkable including lungs CTAB, no heart murmur, no skin rash or other lesions documented. On 03/14 a sample was sent to the lab for culture labeled as "Neck abscess", which grew MSSA, Prevotella species and Peptostreptococcus spp. Subsequent notes describe an unstagable ulcer to R neck. Noncontrast C spine MRI performed on 03/20/17 was read as normal. On 03/16 pt was noted to have urinary retention and a Osorio was inserted; UCx was sent, which grew grew >100k cfu MSSA. Pt had a fever on 03/17 up to 101 F but no fever prior to that point. Last fever was on 03/18. Blood cultures from 03/18 grew MSSA in one bottle. On 03/18 empiri ken Zosyn and vancomycin were started, and repeat blood cultures from 03/21 have shown no growth. Impression Sepsis due to Methicillin susceptible Staphylococcus aureus (MSSA) bacteremia - Source is not clear based on chart review: * Staph aureus is not a typical uropathogen, although it has been identified as a potential cause of a UTI in patients with indwelling catheter. Isolation of Staph aureus from urine samples is often secondary to Staph aureus bacteremia arising elsewhere. Pt did not already have a urinary catheter to predispose her. Osorio was placed after. * How much significance to attach to culture from the neck depends upon the clinical presentation - was there a furuncle or skin abscess here that has been incised and from which a culture was obtained? If there is surrounding cellulitis, this may be the source of the bacteremia. If the lesion has not appeared infected clinically, the culture result is not meaningful. - Regardless of source, pt has had improvement with institution of effective antimicrobial therapy with rapid defervescence and repeat blood cultures within 72h that are negative. - Pt appears to have had onset of fever and bacteremia while hospitalized, which was quickly detected and treated. Hospital rather than community acquisition of Staph aureus bacteremia is associated with a lower likelihood of endocarditis. Recommendations - Recommend getting TTE. Although she had one earlier in her hospitalization, this was prior to onset of bacteremia, and views were of limited quality. - Continue to evaluate patient for any signs or symptoms that suggest seeding of other areas or a source (e.g. erythema or purulent drainage from IV insertion site might suggest an infected PIV that requires removal or was the source; if a joint becomes swollen and tender, arthrocentesis would need to be performed, etc.) - Recommend discontinuing IV Zosyn and vancomycin. Switch to cefazolin 2 g q8h IV. - In absence of a deeper focus of infection being identified, continue IV cefazolin for a total of two weeks from date of negative blood cultures (04/04/18). Parish Pepe MD [facility] Infectious Diseases pager [phone]
[2018-03-22] MEDS: VANCOMYCIN HCL 1,250 MG in DEXTROSE 5%-WATER 250 ML IV SCH (20:51)
--- NOTE | 2018-03-22 21:51 | PDOC PROGRESS REPORT ---
Subjective Progress Note for:: 03/22/18 Subjective:: The patient is a 57-year-old female with a past medical history of CAD, [place] x2, hypertension, hyperlipidemia, COPD, DM 2, GERD, bipolar, depression, schizoaffective disorder who initially presented to the emergency department on 02/26/18 with a psychiatric complaint and spent 6 days on psych hold in the emergency department pending placement. Patient then began complaining of chest discomfort and so was referred to the hospitalist service for admission and management on 03/04/18. Cardiac workup revealed LVEF 30%. The patient was seen on morning rounds. She is found resting in bed comfortably on room air. She was awake. She does not answer questions appropriately. She does make eye contact, follows me as I move about the room. ROS is limited secondary to altered mental status. NG placed yesterday and enteral feeding initiated. Patient seems to be tole rating well. Vanc/Zosyn initiated due to +Staph aureus in blood and urine cultures. Infectious Disease, Dr. Pepe, recommends switching to cefazolin 2G q8hr. Plan to continue enteral feeding, change antibiotic therapy, and discuss possible SNF placement with discharge planning. Reason For Visit: HYPERNATREMIA, URINARY RETENTION Physical Exam Vital Signs: Temp Pulse Resp BP Pulse Ox 98.1 F 71 20 145/98 H 100 03/22/18 20:00 03/22/18 20:00 03/22/18 20:00 03/22/18 20:00 03/22/18 20:00 Intake & Output 03/21/18 03/22/18 03/23/18 06:59 06:59 06:59 Intake Total 1710 1270 200 Output Total 1100 365 Balance 1710 170 -165 Weight 72.5 kg 69.2 kg General appearance: PRESENT: well-developed Head exam: PRESENT: atraumatic Eye exam: PRESENT: conjunctiva pink, PERRLA Mouth exam: PRESENT: moist Teeth exam: PRESENT: poor dentation Neck exam: PRESENT: full ROM Respiratory exam: PRESENT: clear to auscultation ailyn Cardiovascular exam: PRESENT: +S1, +S2 Pulses: PRESENT: normal radial pulses, normal dorsalis pedis pul Vascular exam: PRESENT: normal capillary refill GI/Abdominal exam: PRESENT: normal bowel sounds, soft. ABSENT: tenderness Extremities exam: PRESENT: full ROM Musculoskeletal exam: PRESENT: full ROM Neurological exam: PRESENT: altered, awake. ABSENT: oriented to person, oriented to place, oriented to time, oriented to situation Skin exam: PRESENT: dry, intact Results Laboratory Results: 03/22/18 06:06 03/22/18 08:27 03/22/18 03/22/18 03/22/18 06:06 06:06 08:27 WBC 7.2 RBC 4.70 Hgb 11.5 L Hct 36.2 MCV 77 L MCH 24.5 L MCHC 31.8 L RDW 22.1 H Plt Count 215 Sodium Cancelled 149.5 H Potassium Cancelled 3.8 Chloride Cancelled 118 H Carbon Dioxide Cancelled 24 Anion Gap Cancelled 8 BUN Cancelled 28 H Creatinine Cancelled 0.88 Est GFR ( Amer) Cancelled > 60 Est GFR (Non-Af Amer) Cancelled > 60 Glucose Cancelled 144 H Calcium Cancelled 8.2 L Phosphorus Cancelled 3.7 Magnesium Cancelled 2.1 03/18/18 16:45 Blood Blood Culture - Final Staphylococcus Aureus 02/28/18 03/01/18 03/01/18 21:25 01:45 08:51 CK-MB (CK-2) Troponin I 0.069 0.063 0.068 03/04/18 03/04/18 03/04/18 11:43 15:30 20:48 CK-MB (CK-2) 2.03 Troponin I 0.055 0.048 0.044 03/05/18 03:10 CK-MB (CK-2) Troponin I 0.063 Impressions: Head CT 03/01/18 18:50 IMPRESSION: MILD CHRONIC CHANGES OF ATROPHY AND MICROVASCULAR ISCHEMIA. 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 NO ACUTE PROCESS. EVIDENCE OF ACUTE STROKE: NO. Abdomen/Pelvis CT 03/04/18 10:32 IMPRESSION: Small volume ascites. No additional evidence of acute intra- abdominal/pelvic process. Chest X-Ray 03/14/18 00:00 IMPRESSION: NO ACUTE RADIOGRAPHIC FINDING IN THE CHEST. KUB X-Ray 03/19/18 10:09 IMPRESSION: NASOGASTRIC TUBE IN THE STOMACH. NO RADIOGRAPHIC EVIDENCE FOR ACUTE ABDOMINAL DISEASE. Cervical Spine MRI 03/20/18 00:00 IMPRESSION: NORMAL MRI CERVICAL SPINE. Head MRI 03/20/18 00:00 IMPRESSION: ATROPHY AND CHRONIC MICRO-VASCULAR ISCHEMIC CHANGES. FOCAL AREAS OF ABNORMAL WHITE MATTER SIGNAL IN THE POSTERIOR RIGHT PARIETAL LOBE CORRESPONDING TO SIMILAR FINDINGS ON PRIOR CT, CONSISTENT WITH OLD INFARCT. NO ACUTE FINDINGS. EVIDENCE OF ACUTE STROKE: NO. Status: Imported from PACS Assessment & Plan - Diagnosis (1) Acute encephalopathy Is this a current diagnosis for this admission?: Yes Plan: Plateaued; awake but not oriented, makes eye contact and follows movement around the room but does not respond to questions or follow to commands. Unclear etiology; likely multifactorial secondary to hypernatremia, dehydration, hypertension, underlying mental health disorders (bipolar, schizoaffective disorder), and possibly hospital psychosis. Some concern for infection; wound culture and urine culture match, low-grade temperature. Head CT (03/01/18) mild chronic changes of atrophy with microvascular ischemia and an old right parietal infarct but no acute processes. 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 Urinalysis revealed urinary tract infection Depakote level low; now receiving via NG tube HIV negative Hepatitis panel is negative Will provide for patient safety; fall, aspiration precautions. Supportive care. Will treat UTI; antibiotics changed from vancomycin and Zosyn to Cefazolin 2Gm q8hr per ID recommendations If patient does not demonstrate improvement within the next 24-48 hours (following antibiotic therapy) plan for a goals of care discussion with the patient's next of kin (son). Psychiatry strongly feels that the patient's current mental status is related to advancing dementia. Patient may benefit from palliative care/hospice consultation. (2) Hypernatremia Is this a current diagnosis for this admission?: Yes Plan: Unchanged; 149.5 again today Have ordered tube feeds with free water flushes every hourly (reference diet technician registered's note) web specialist is consulted. Previously spoke with Dr. Hadley; does not feel that there is an additional workup needed for hypernatremia/KIRSTEN. Serial chemistries. (3) Hypokalemia Is this a current diagnosis for this admission?: Yes Plan: Resolved. K 3.8 Secondary to poor p.o. intake. Continue replacement as needed. Now receiving enteral nutrition via tube feeds. Serial chemistries. (4) Ischemic cardiomyopathy EF 30% Is this a current diagnosis for this admission?: Yes Plan: Echocardiogram revealed LVEF of 30% with severe global hypokinesis of the left ventricle, paradoxical septal wall motion consistent with right ventricular volume overload. She appears compensated without exacerbation at this time. We will continue medication regiment; lisinopril, metoprolol, daily aspirin, atorvastatin (5) Somnolence Is this a current diagnosis for this admission?: Yes Plan: Continues to improve; patient now is awake. TSH normal. Cortisol is acceptable. Continue to monitor. Remaining work up as above. (6) HTN (hypertension) Qualifiers: Hypertension type: essential hypertension Qualified Code(s): I10 - Essential (primary) hypertension Is this a current diagnosis for this admission?: Yes Plan: Normotensive today. Continue lisinopril 5 mg daily and metoprolol 12.5 mg twice daily. Continue clonidine 0.1 mg/24hr transdermal patch. (7) Dehydration Is this a current diagnosis for this admission?: Yes Plan: Resolved. Secondary to poor p.o. intake and evidenced by hypernatremia and KIRSTEN. Tube feeds and free water flushes. (8) Bipolar 1 disorder, depressed Is this a current diagnosis for this admission?: Yes Plan: Subtherapeutic; however, now receiving via NG tube. Depakote 250 mg twice daily. (9) Urine retention Is this a current diagnosis for this admission?: Yes Plan: Patient with bladder distention on exam; bladder scan demonstrated >999 mL. Urinalysis positive for UTI. Urine culture positive for Staph aureus Bladder scan every 6 hours; straight cath for >200 mL (10) UTI (urinary tract infection) Qualifiers: Urinary tract infection type: acute cystitis Hematuria presence: with hematuria Qualified Code(s): N30.01 - Acute cystitis with hematuria Is this a current diagnosis for this admission?: Yes Plan: Urinalysis positive for UTI. Urine culture shows staph aureus. Blood cultures shows staph aureus. Patient received Rocephin x1.Escalated to IV Zosyn and vancomycin. Changed to Cefazolin 2G q8h today per ID recommendations. - Time Time Spent with patient: 15-24 minutes Medications reviewed and adjusted accordingly: Yes Anticipated discharge: SNF Within: within 48 hours - Inpatient Certification Based on my medical assessment, after consideration of the patient's comorbidities, presenting symptoms, or acuity I expect that the services needed warrant INPATIENT care.: Yes I certify that my determination is in accordance with my understanding of Medicare's requirements for reasonable and necessary INPATIENT services [42 CFR 412.3e].: Yes Medical Necessity: Need for IV Antibiotics
[2018-03-22] MEDS ORDERED: CEFAZOLIN 2 GM/D5W RTU 2 GM/50 ML RTUPB IV SCH (22:00)
[2018-03-22] MEDS: CEFAZOLIN SODIUM 2 GM in DEXTROSE 5%-WATER 100 ML IV SCH (22:48)
[2018-03-22] MEDS: ATORVASTATIN CALCIUM 20 MG TABLET NG SCH (22:49)
[2018-03-22] MEDS: ASPIRIN 81 MG TABLET, CHEWABLE NG SCH (22:49)
[2018-03-22] MEDS: INSULIN LISPRO 100 UNIT/ML 3 ML VIAL SUBCUT PRN (22:53)
[2018-03-23] MEDS: VALPROATE SODIUM SYRUP 250 MG/5 ML UDCUP PO SCH ×2 (05:47→17:33)
[2018-03-23] MEDS: CEFAZOLIN SODIUM 2 GM in DEXTROSE 5%-WATER 100 ML IV SCH ×3 (05:47→22:45)
[2018-03-23] MEDS: FAMOTIDINE 20 MG TABLET NG SCH ×2 (09:31→22:45)
[2018-03-23] MEDS: METOPROLOL TARTRATE 25 MG TABLET NG SCH ×2 (09:33→22:44)
[2018-03-23] MEDS: POLYETHYLENE GLYCOL 3350 POWDER 17 GM/1 PACKET NG SCH (09:33)
[2018-03-23] MEDS: MULTIVITAMIN ORAL LIQUID 60 ML NG SCH (09:34)
[2018-03-23] MEDS: ENOXAPARIN SODIUM INJ 40 MG/0.4 ML DISP.SYRIN SUBCUT SCH (09:34)
[2018-03-23] MEDS: LISINOPRIL 10 MG TABLET NG SCH (09:35)
[2018-03-23] MEDS: POTASSIUM CHLORIDE 20 MEQ/15 ML UDCUP PO SCH (09:53)
--- NOTE | 2018-03-23 21:55 | PDOC PROGRESS REPORT ---
Subjective Progress Note for:: 03/23/18 Subjective:: The patient is a 57-year-old female with a past medical history of CAD, [place] x2, hypertension, hyperlipidemia, COPD, DM 2, GERD, bipolar, depression, schizoaffective disorder who initially presented to the emergency department on 02/26/18 with a psychiatric complaint and spent 6 days on psych hold in the emergency department pending placement. Patient then began complaining of chest discomfort and so was referred to the hospitalist service for admission and management on 03/04/18. Cardiac workup revealed LVEF 30%. The patient was seen on morning rounds. She is found resting in bed comfortably on room air. She was awake. She is able to intermittently answer questions appropriately. She speaks in 1-2 word phrases. When asked more complex questions, she often will not respond. She does make eye contact, follows me as I move about the room. ROS is limited secondary to altered mental status. NG placed 48 hrs ago and enteral feeding initiated. Patient seems to be tolerating well. Discussion with family today reveals that the patient has a habit 'of snorting IcyHot.' The patient apparently stockpiles the OTC pain reliever and snorts it to 'get high.' Unclear if IcyHot has any mind altering properties and maybe this could explain her clinical picture, will need to consult Poison Control. Plan to continue enteral feeding, change antibiotic therapy, and discuss patient's case with poison control . Reason For Visit: HYPERNATREMIA, URINARY RETENTION Physical Exam Vital Signs: Temp Pulse Resp BP Pulse Ox 97.9 F 69 14 149/93 H 95 03/23/18 15:06 03/23/18 19:00 03/23/18 15:06 03/23/18 15:06 03/23/18 12:00 Intake & Output 03/22/18 03/23/18 03/24/18 06:59 06:59 06:59 Intake Total 1270 1364 100 Output Total 1100 1265 300 Balance 170 99 -200 Weight 69.2 kg 71.7 kg General appearance: PRESENT: no acute distress Eye exam: PRESENT: conjunctiva pink, PERRLA Mouth exam: PRESENT: moist Teeth exam: PRESENT: poor dentation Neck exam: PRESENT: full ROM Respiratory exam: PRESENT: clear to auscultation ailyn, symmetrical, unlabored Cardiovascular exam: PRESENT: +S1, +S2 Pulses: PRESENT: normal radial pulses, normal dorsalis pedis pul GI/Abdominal exam: PRESENT: soft. ABSENT: distended, tenderness Rectal exam: PRESENT: deferred Extremities exam: ABSENT: full ROM, pedal edema Musculoskeletal exam: ABSENT: ambulatory Neurological exam: PRESENT: awake. ABSENT: oriented to person, oriented to place, oriented to time, oriented to situation Psychiatric exam: PRESENT: unusual affect Skin exam: PRESENT: dry, intact, normal color Results Laboratory Results: 03/22/18 06:06 03/22/18 08:27 03/18/18 17:15 Blood Blood Culture - Final Gram Positive Cocci 02/28/18 03/01/18 03/01/18 21:25 01:45 08:51 CK-MB (CK-2) Troponin I 0.069 0.063 0.068 03/04/18 03/04/18 03/04/18 11:43 15:30 20:48 CK-MB (CK-2) 2.03 Troponin I 0.055 0.048 0.044 03/05/18 03:10 CK-MB (CK-2) Troponin I 0.063 Impressions: Head CT 03/01/18 18:50 IMPRESSION: MILD CHRONIC CHANGES OF ATROPHY AND MICROVASCULAR ISCHEMIA. 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 NO ACUTE PROCESS. EVIDENCE OF ACUTE STROKE: NO. Abdomen/Pelvis CT 03/04/18 10:32 IMPRESSION: Small volume ascites. No additional evidence of acute intra- abdominal/pelvic process. Chest X-Ray 03/14/18 00:00 IMPRESSION: NO ACUTE RADIOGRAPHIC FINDING IN THE CHEST. KUB X-Ray 03/19/18 10:09 IMPRESSION: NASOGASTRIC TUBE IN THE STOMACH. NO RADIOGRAPHIC EVIDENCE FOR ACUTE ABDOMINAL DISEASE. Cervical Spine MRI 03/20/18 00:00 IMPRESSION: NORMAL MRI CERVICAL SPINE. Head MRI 03/20/18 00:00 IMPRESSION: ATROPHY AND CHRONIC MICRO-VASCULAR ISCHEMIC CHANGES. FOCAL AREAS OF ABNORMAL WHITE MATTER SIGNAL IN THE POSTERIOR RIGHT PARIETAL LOBE CORRESPONDING TO SIMILAR FINDINGS ON PRIOR CT, CONSISTENT WITH OLD INFARCT. NO ACUTE FINDINGS. EVIDENCE OF ACUTE STROKE: NO. Status: Imported from PACS Assessment & Plan - Diagnosis (1) Acute encephalopathy Is this a current diagnosis for this admission?: Yes Plan: Plateaued; awake, makes eye contact and able to track but does not follow to commands. Will intermittently answer questions appropriately with 1-2 word phrases Unclear etiology; likely multifactorial - hypernatremia, dehydration, hypertension, underlying mental health disorders (bipolar, schizoaffective disorder), and possibly hospital psychosis. Concern stemming from recent revelation from family who state the patient has a habit of 'snorting IcyHot.' Unclear if this habit can have an impact on her mental status. This behavior is likely a manifestation of her mental illness. Head CT (03/01/18) mild chronic changes of atrophy with microvascular ischemia and an old right parietal infarct but no acute processes. 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 Urinalysis revealed urinary tract infection Depakote level low; now receiving via NG tube HIV negative Hepatitis panel is negative Will provide for patient safety; fall, aspiration precautions. Supportive care. Will treat UTI; Cefazolin 2Gm q8hr per ID recommendations (2) Hypernatremia Is this a current diagnosis for this admission?: Yes Plan: Unchanged; 149.5 again today Have ordered tube feeds with free water flushes every hourly (reference icu registered nurse's note) nursing home administrator is consulted. Previously spoke with Dr. Hadley; does not feel that there is an additional workup needed for hypernatremia/KIRSTEN. Serial chemistries. (3) Hypokalemia Is this a current diagnosis for this admission?: Yes Plan: Resolved. K 3.8 Secondary to poor p.o. intake. Continue replacement as needed. Now receiving enteral nutrition via tube feeds. Serial chemistries. (4) Ischemic cardiomyopathy EF 30% Is this a current diagnosis for this admission?: Yes Plan: Echocardiogram revealed LVEF of 30% with severe global hypokinesis of the left ventricle, paradoxical septal wall motion consistent with right ventricular v olume overload. She appears compensated without exacerbation at this time. We will continue medication regiment; lisinopril, metoprolol, daily aspirin, atorvastatin (5) Somnolence Is this a current diagnosis for this admission?: Yes Plan: Continues to improve; patient now is awake. TSH normal. Cortisol is acceptable. Continue to monitor. Remaining work up as above. (6) HTN (hypertension) Qualifiers: Hypertension type: essential hypertension Qualified Code(s): I10 - Essential (primary) hypertension Is this a current diagnosis for this admission?: Yes Plan: Normotensive today. Continue lisinopril 5 mg daily and metoprolol 12.5 mg twice daily. Continue clonidine 0.1 mg/24hr transdermal patch. (7) Dehydration Is this a current diagnosis for this admission?: Yes Plan: Resolved. Secondary to poor p.o. intake and evidenced by hypernatremia and KIRSTEN. Tube feeds and free water flushes. (8) Bipolar 1 disorder, depressed Is this a current diagnosis for this admission?: Yes Plan: Subtherapeutic; however, now receiving via NG tube. Depakote 250 mg twice daily. (9) Urine retention Is this a current diagnosis for this admission?: Yes Plan: Patient with bladder distention on exam; bladder scan demonstrated >999 mL. Urinalysis positive for UTI. Urine culture positive for Staph aureus Bladder scan every 6 hours; straight cath for >200 mL (10) UTI (urinary tract infection) Qualifiers: Urinary tract infection type: acute cystitis Hematuria presence: with hematuria Qualified Code(s): N30.01 - Acute cystitis with hematuria Is this a current diagnosis for this admission?: Yes Plan: Urinalysis positive for UTI. Urine culture shows staph aureus. Blood cultures shows staph aureus. Continue Cefazolin 2G q8h - ID recommendations. - Time Time Spent with patient: 15-24 minutes Medications reviewed and adjusted accordingly: Yes Anticipated discharge: SNF - Inpatient Certification Based on my medical assessment, after consideration of the patient's comorbidities, presenting symptoms, or acuity I expect that the services needed warrant INPATIENT care.: Yes I certify that my determination is in accordance with my understanding of Medicare's requirements for reasonable and necessary INPATIENT services [42 CFR 412.3e].: Yes Medical Necessity: Risk of Complication if Not Cared For in Hospital - Plan Summary Plan Summary: CONTACT POISON CONTROL AND DISCUSS PATIENT'S CASE. TALK WITH FAMILY ABOUT GOALS OF CARE AND POST-HOSPITALIZATION PLACEMENT.
[2018-03-23] MEDS: ASPIRIN 81 MG TABLET, CHEWABLE NG SCH (22:44)
[2018-03-23] MEDS: ATORVASTATIN CALCIUM 20 MG TABLET NG SCH (22:45)
[2018-03-24] MEDS: ACETAMINOPHEN SOLN 325 MG/10.15 ML UDCUP NG PRN ×2 (01:55→15:22)
[2018-03-24] MEDS: CEFAZOLIN SODIUM 2 GM in DEXTROSE 5%-WATER 100 ML IV SCH ×3 (05:59→23:48)
[2018-03-24] MEDS: VALPROATE SODIUM SYRUP 250 MG/5 ML UDCUP PO SCH ×2 (05:59→17:52)
[2018-03-24 07:58] LABS: HEMATOCRIT 35.8 % (36.0-47.0); HEMOGLOBIN 11.6 g/dL (12.0-15.5); MEAN CORPUSCULAR HEMOGLOBIN 24.9 pg (27.0-33.4); MEAN CORPUSCULAR HGB CONC 32.4 g/dL (32.0-36.0); MEAN CORPUSCULAR VOLUME 77 fl (80-97); PLATELET COUNT 244 10^3/uL (150-450); RED BLOOD COUNT 4.66 10^6/uL (3.72-5.28); RED CELL DISTRIBUTION WIDTH 21.9 % (11.5-14.0); WHITE BLOOD COUNT 8.3 10^3/uL (4.0-10.5)
[2018-03-24 08:13] LABS: ANION GAP 7 (5-19); BLOOD UREA NITROGEN 17 mg/dL (7-20); CALCIUM 8.4 mg/dL (8.4-10.2); CARBON DIOXIDE 24 mmol/L (22-30); CHLORIDE 112 mmol/L (98-107); GLUCOSE 238 mg/dL (75-110); PHOSPHORUS 3.4 mg/dL (2.5-4.5); POTASSIUM 4.3 mmol/L (3.6-5.0); SODIUM 143.3 mmol/L (137-145)
[2018-03-24] MEDS: MULTIVITAMIN ORAL LIQUID 60 ML NG SCH (10:19)
[2018-03-24] MEDS: POTASSIUM CHLORIDE 20 MEQ/15 ML UDCUP PO SCH (10:19)
[2018-03-24] MEDS: METOPROLOL TARTRATE 25 MG TABLET NG SCH ×2 (10:20→23:48)
[2018-03-24] MEDS: POLYETHYLENE GLYCOL 3350 POWDER 17 GM/1 PACKET NG SCH (10:21)
[2018-03-24] MEDS: LISINOPRIL 10 MG TABLET NG SCH (10:21)
[2018-03-24] MEDS: FAMOTIDINE 20 MG TABLET NG SCH ×2 (10:21→23:48)
[2018-03-24] MEDS: ENOXAPARIN SODIUM INJ 40 MG/0.4 ML DISP.SYRIN SUBCUT SCH (10:22)
--- NOTE | 2018-03-24 13:54 | PDOC PROGRESS REPORT ---
Subjective Progress Note for:: 03/24/18 Subjective:: The patient is a 57-year-old female with a past medical history of CAD, [place] x2, hypertension, hyperlipidemia, COPD, DM 2, GERD, bipolar, depression, schizoaffective disorder who initially presented to the emergency department on 02/26/18 with a psychiatric complaint and spent 6 days on psych hold in the emergency department pending placement. Patient then began complaining of chest discomfort and so was referred to the hospitalist service for admission and management on 03/04/18. Cardiac workup revealed LVEF 30%. The patient continues to become more and more alert each day. She is able to intermittently answer questions appropriately, speaking in 2-3 word phrases. She is able to tell me her son's name, but when asked about her sister, she cannot tell me what her name is. The patient does make eye contact, follows me as I move about the room. ROS is limited secondary to altered mental status. Discussed patient's status with son (next of kin) and sister, Evelin. Discussed the option of PEG/enteral feeding versus palliative care. Family seems interested in pursuing all medical treatment given the patient's improving mental status. Son states he will notify medical staff about his decision tonight/tomorrow morning. Reason For Visit: HYPERNATREMIA, URINARY RETENTION Physical Exam Vital Signs: Temp Pulse Resp BP Pulse Ox 98.2 F 71 19 160/90 H 100 03/24/18 04:00 03/24/18 04:00 03/24/18 04:00 03/24/18 04:00 03/24/18 04:00 Intake & Output 03/23/18 03/24/18 03/25/18 06:59 06:59 06:59 Intake Total 1364 200 Output Total 1265 1325 Balance 99 -1125 Weight 71.7 kg 71.5 kg General appearance: PRESENT: no acute distress Head exam: PRESENT: atraumatic Eye exam: PRESENT: conjunctiva pink, PERRLA Mouth exam: PRESENT: moist Teeth exam: PRESENT: poor dentation Respiratory exam: PRESENT: clear to auscultation ailyn, symmetrical, unlabored Cardiovascular exam: PRESENT: +S1, +S2 Pulses: PRESENT: normal radial pulses, normal dorsalis pedis pul Vascular exam: PRESENT: normal capillary refill GI/Abdominal exam: PRESENT: normal bowel sounds, soft. ABSENT: tenderness Rectal exam: PRESENT: deferred Extremities exam: ABSENT: full ROM Musculoskeletal exam: ABSENT: ambulatory, full ROM Neurological exam: PRESENT: alert, awake, oriented to person, oriented to place, oriented to time, oriented to situation Psychiatric exam: PRESENT: appropriate affect Skin exam: PRESENT: dry, intact, warm Results Laboratory Results: 03/24/18 07:22 03/24/18 07:22 03/24/18 03/24/18 07:22 07:22 WBC 8.3 RBC 4.66 Hgb 11.6 L Hct 35.8 L MCV 77 L MCH 24.9 L MCHC 32.4 RDW 21.9 H Plt Count 244 Sodium 143.3 Potassium 4.3 Chloride 112 H Carbon Dioxide 24 Anion Gap 7 BUN 17 Creatinine 0.75 Est GFR ( Amer) > 60 Est GFR (Non-Af Amer) > 60 Glucose 238 H Calcium 8.4 Phosphorus 3.4 Magnesium 2.0 02/28/18 03/01/18 03/01/18 21:25 01:45 08:51 CK-MB (CK-2) Troponin I 0.069 0.063 0.068 03/04/18 03/04/18 03/04/18 11:43 15:30 20:48 CK-MB (CK-2) 2.03 Troponin I 0.055 0.048 0.044 03/05/18 03:10 CK-MB (CK-2) Troponin I 0.063 Impressions: Head CT 03/01/18 18:50 IMPRESSION: MILD CHRONIC CHANGES OF ATROPHY AND MICROVASCULAR ISCHEMIA. 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 NO ACUTE PROCESS. EVIDENCE OF ACUTE STROKE: NO. Abdomen/Pelvis CT 03/04/18 10:32 IMPRESSION: Small volume ascites. No additional evidence of acute intra- abdominal/pelvic process. Chest X-Ray 03/14/18 00:00 IMPRESSION: NO ACUTE RADIOGRAPHIC FINDING IN THE CHEST. KUB X-Ray 03/19/18 10:09 IMPRESSION: NASOGASTRIC TUBE IN THE STOMACH. NO RADIOGRAPHIC EVIDENCE FOR ACUTE ABDOMINAL DISEASE. Cervical Spine MRI 03/20/18 00:00 IMPRESSION: NORMAL MRI CERVICAL SPINE. Head MRI 03/20/18 00:00 IMPRESSION: ATROPHY AND CHRONIC MICRO-VASCULAR ISCHEMIC CHANGES. FOCAL AREAS OF ABNORMAL WHITE MATTER SIGNAL IN THE POSTERIOR RIGHT PARIETAL LOBE CORRESPONDING TO SIMILAR FINDINGS ON PRIOR CT, CONSISTENT WITH OLD INFARCT. NO ACUTE FINDINGS. EVIDENCE OF ACUTE STROKE: NO. Status: Imported from PACS Assessment & Plan - Diagnosis (1) Acute encephalopathy Is this a current diagnosis for this admission?: Yes Plan: Improving Awake, makes eye contact and able to track. Able to follow simple commands (gross motor movement) but cannot perform complex tasks. Will intermittently answer questions appropriately with 2-3 word phrases Unclear etiology; likely multifactorial - hypernatremia, dehydration, hypertension, underlying mental health disorders (bipolar, schizoaffective disorder), and possibly hospital psychosis. Concern stemming from recent revelation from family who state the patient has a habit of 'snorting IcyHot.' Unclear if this habit can have an impact on her mental status. This behavior is likely a manifestation of her mental illness. Po allie babin contacted 03/23 and did not have a definitive answer regarding the recreational use of snorting IcyHot and it's longlasting effects. Head CT (03/01/18) mild chronic changes of atrophy with microvascular ischemia and an old right parietal infarct but no acute processes. 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 Urinalysis revealed urinary tract infection Depakote level low; now receiving via NG tube HIV negative Hepatitis panel is negative Will provide for patient safety; fall, aspiration precautions. Supportive care. 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 Son expressed interest in PEG/enteral feeding but will discuss with the rest of his family and notify medical staff of official decision. (2) Hypernatremia Is this a current diagnosis for this admission?: Yes Plan: Unchanged Have ordered tube feeds with free water flushes every hourly (reference transplant registered nurse's note) online retailer is consulted. Previously spoke with Dr. Hadley; does not feel that there is an additional workup needed for hypernatremia/KIRSTEN. Serial chemistries. (3) Hypokalemia Is this a current diagnosis for this admission?: Yes Plan: Resolved. Secondary to poor p.o. intake. Continue replacement as needed. Now receiving enteral nutrition via tube feeds. Serial chemistries. (4) Ischemic cardiomyopathy EF 30% Is this a current diagnosis for this admission?: Yes Plan: Echocardiogram revealed LVEF of 30% with severe global hypokinesis of the left ventricle, paradoxical septal wall motion consistent with right ventricular volume overload. She appears compensated without exacerbation at this time. We will continue medication regiment; lisinopril, metoprolol, daily aspirin, atorvastatin (5) Somnolence Is this a current diagnosis for this admission?: Yes Plan: Continues to improve; patient now is awake. Able to speak in 2-3 word sentences. Will intermittently answer questions appropriately. TSH normal. Cortisol is acceptable. Continue to monitor. Remaining work up as above. (6) HTN (hypertension) Qualifiers: Hypertension type: essential hypertension Qualified Code(s): I10 - Essential (primary) hypertension Is this a current diagnosis for this admission?: Yes Plan: Normotensive today. Continue lisinopril 5 mg daily and metoprolol 12.5 mg twice daily. Continue clonidine 0.1 mg/24hr transdermal patch. (7) Dehydration Is this a current diagnosis for this admission?: Yes Plan: Resolved. Secondary to poor p.o. intake and evidenced by hypernatremia and KIRSTEN. Tube feeds and free water flushes. (8) Bipolar 1 disorder, depressed Is this a current diagnosis for this admission?: Yes Plan: Subtherapeutic; however, now receiving via NG tube. Depakote 250 mg twice daily. (9) Urine retention Is this a current diagnosis for this admission?: Yes Plan: Patient with bladder distention on exam; bladder scan demonstrated >999 mL. Urinalysis positive for UTI. Urine culture positive for Staph aureus Osorio catheter placed today following multiple episodes of urine retention (10) UTI (urinary tract infection) Qualifiers: Urinary tract infection type: acute cystitis Hematuria presence: with hematuria Qualified Code(s): N30.01 - Acute cystitis with hematuria Is this a current diagnosis for this admission?: Yes Plan: Urinalysis positive for UTI. Urine culture shows staph aureus. Blood cultures shows staph aureus. Continue Cefazolin 2G q8h - ID recommendations. - Time Time Spent with patient: 15-24 minutes Medications reviewed and adjusted accordingly: Yes Anticipated discharge: SNF - Inpatient Certification Based on my medical assessment, after consideration of the patient's comorbidities, presenting symptoms, or acuity I expect that the services needed warrant INPATIENT care.: Yes I certify that my determination is in accordance with my understanding of Medicare's requirements for reasonable and necessary INPATIENT services [42 CFR 412.3e].: Yes Medical Necessity: Risk of Complication if Not Cared For in Hospital - Plan Summary Plan Summary: CONTINUE ABX FOR UTI. WAITING FOR FAMILY DECISION REGARDING PEG/ENTERAL FEEDING.
[2018-03-24] MEDS: INSULIN LISPRO 100 UNIT/ML 3 ML VIAL SUBCUT PRN ×2 (18:40→23:52)
[2018-03-24] MEDS: ATORVASTATIN CALCIUM 20 MG TABLET NG SCH (23:47)
[2018-03-24] MEDS: ASPIRIN 81 MG TABLET, CHEWABLE NG SCH (23:48)
[2018-03-25] MEDS: VALPROATE SODIUM SYRUP 250 MG/5 ML UDCUP PO SCH ×2 (05:12→18:03)
[2018-03-25] MEDS: CEFAZOLIN SODIUM 2 GM in DEXTROSE 5%-WATER 100 ML IV SCH ×3 (05:12→22:18)
[2018-03-25] MEDS: ACETAMINOPHEN SOLN 325 MG/10.15 ML UDCUP NG PRN (11:37)
[2018-03-25] MEDS: POTASSIUM CHLORIDE 20 MEQ/15 ML UDCUP PO SCH (11:39)
[2018-03-25] MEDS: FAMOTIDINE 20 MG TABLET NG SCH ×2 (11:39→22:17)
[2018-03-25] MEDS: LISINOPRIL 10 MG TABLET NG SCH (11:40)
[2018-03-25] MEDS: POLYETHYLENE GLYCOL 3350 POWDER 17 GM/1 PACKET NG SCH (11:41)
[2018-03-25] MEDS: METOPROLOL TARTRATE 25 MG TABLET NG SCH ×2 (11:41→22:17)
[2018-03-25] MEDS: MULTIVITAMIN ORAL LIQUID 60 ML NG SCH (11:42)
[2018-03-25] MEDS: ENOXAPARIN SODIUM INJ 40 MG/0.4 ML DISP.SYRIN SUBCUT SCH (11:43)
--- NOTE | 2018-03-25 17:01 | PDOC PROGRESS REPORT ---
Subjective Progress Note for:: 03/25/18 Subjective:: The patient is a 57-year-old female with a past medical history of CAD, [place] x2, hypertension, hyperlipidemia, COPD, DM 2, GERD, bipolar, depression, schizoaffective disorder who initially presented to the emergency department on 02/26/18 with a psychiatric complaint and spent 6 days on psych hold in the emergency department pending placement. Patient then began complaining of chest discomfort and so was referred to the hospitalist service for admission and management on 03/04/18. Cardiac workup revealed LVEF 30%. The patient continues to become more and more alert each day. She is able to intermittently answer questions appropriately, speaking in 2-3 word phrases. The patient does make eye contact, but she is not following commands today. ROS is limited secondary to altered mental status. Discussed patient's status with son, Mack (next of kin). He would like to pursue a PEG tube placement and transfer the patient to [facility] when possible. Consulted surgery for PEG tube placement. Dr. Lynn states the procedure will likely happen on Wednesday. Reason For Visit: HYPERNATREMIA, URINARY RETENTION Physical Exam Vital Signs: Temp Pulse Resp BP Pulse Ox 98.6 F 70 14 146/79 H 100 03/25/18 08:13 03/25/18 08:13 03/25/18 08:13 03/25/18 08:13 03/25/18 08:13 Intake & Output 03/24/18 03/25/18 03/26/18 06:59 06:59 06:59 Intake Total 300 1940 Output Total 1325 1800 Balance -1025 140 Weight 71.5 kg 72.3 kg General appearance: PRESENT: no acute distress Head exam: PRESENT: atraumatic Eye exam: PRESENT: conjunctiva pink, PERRLA Mouth exam: PRESENT: moist Teeth exam: PRESENT: poor dentation Neck exam: PRESENT: full ROM Respiratory exam: PRESENT: clear to auscultation ailyn, symmetrical, unlabored Cardiovascular exam: PRESENT: +S1, +S2 Pulses: PRESENT: normal radial pulses, normal dorsalis pedis pul GI/Abdominal exam: PRESENT: soft, other - NG tube for feeding. ABSENT: distended, tenderness Rectal exam: PRESENT: deferred Extremities exam: PRESENT: full ROM. ABSENT: pedal edema Musculoskeletal exam: PRESENT: full ROM. ABSENT: ambulatory Neurological exam: PRESENT: awake, oriented to person, oriented to place. ABSENT: oriented to time, oriented to situation Skin exam: PRESENT: dry, intact, normal color Results Laboratory Results: 03/24/18 07:22 03/24/18 07:22 03/18/18 17:15 Blood Blood Culture - Final Staphylococcus Aureus 02/28/18 03/01/18 03/01/18 21:25 01:45 08:51 CK-MB (CK-2) Troponin I 0.069 0.063 0.068 03/04/18 03/04/18 03/04/18 11:43 15:30 20:48 CK-MB (CK-2) 2.03 Troponin I 0.055 0.048 0.044 03/05/18 03:10 CK-MB (CK-2) Troponin I 0.063 Impressions: Head CT 03/01/18 18:50 IMPRESSION: MILD CHRONIC CHANGES OF ATROPHY AND MICROVASCULAR ISCHEMIA. OLD RI GHT PARIETAL INFARCT. NO ACUTE PROCESS. EVIDENCE OF ACUTE STROKE: NO. Abdomen/Pelvis CT 03/04/18 10:32 IMPRESSION: Small volume ascites. No additional evidence of acute intra- abdominal/pelvic process. Chest X-Ray 03/14/18 00:00 IMPRESSION: NO ACUTE RADIOGRAPHIC FINDING IN THE CHEST. KUB X-Ray 03/19/18 10:09 IMPRESSION: NASOGASTRIC TUBE IN THE STOMACH. NO RADIOGRAPHIC EVIDENCE FOR ACUTE ABDOMINAL DISEASE. Cervical Spine MRI 03/20/18 00:00 IMPRESSION: NORMAL MRI CERVICAL SPINE. Head MRI 03/20/18 00:00 IMPRESSION: ATROPHY AND CHRONIC MICRO-VASCULAR ISCHEMIC CHANGES. FOCAL AREAS OF ABNORMAL WHITE MATTER SIGNAL IN THE POSTERIOR RIGHT PARIETAL LOBE CORRESPONDING TO SIMILAR FINDINGS ON PRIOR CT, CONSISTENT WITH OLD INFARCT. NO ACUTE FINDINGS. EVIDENCE OF ACUTE STROKE: NO. Status: Imported from PACS Assessment & Plan - Diagnosis (1) Acute encephalopathy Is this a current diagnosis for this admission?: Yes Plan: Improving Awake, makes eye contact and able to track. Intermittently follows simple c ommands (gross motor movement) but cannot perform complex tasks. Intermittently answer questions appropriately with 2-3 word phrases Unclear etiology; likely multifactorial - hypernatremia, dehydration, hypertension, underlying mental health disorders (bipolar, schizoaffective disorder), and possibly hospital psychosis. Head CT (03/01/18) mild chronic changes of atrophy with microvascular ischemia and an old right parietal infarct but no acute processes. 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 UA (+) UTI HIV negative Hepatitis panel is negative Will provide for patient safety; fall, aspiration precautions. Supportive care. 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 Son expressed confirmed interest in PEG/enteral feeding. Dr. Lynn made aware of this, plan to move forward with procedure on Wednesday. (2) Hypernatremia Is this a current diagnosis for this admission?: Yes Plan: Unchanged Have ordered tube feeds with free water flushes every hourly (reference emergency room registered nurse's note) reed cleaner is consulted. Previously spoke with Dr. Hadley; does not feel that there is an additional workup needed for hypernatremia/KIRSTEN. Serial chemistries. (3) Hypokalemia Is this a current diagnosis for this admission?: Yes Plan: Resolved. Secondary to poor p.o. intake. Continue replacement as needed. Now receiving enteral nutrition via tube feeds. Serial chemistries. (4) Ischemic cardiomyopathy EF 30% Is this a current diagnosis for this admission?: Yes Plan: Echocardiogram revealed LVEF of 30% with severe global hypokinesis of the left ventricle, paradoxical septal wall motion consistent with right ventricular volume overload. She appears compensated without exacerbation at this time. We will continue medication regiment; lisinopril, metoprolol, daily aspirin, atorvastatin (5) Somnolence Is this a current diagnosis for this admission?: Yes Plan: Continues to improve; patient now is awake. Able to speak in 2-3 word sentences. Will intermittently answer questions appropriately. TSH normal. Cortisol is acceptable. Continue to monitor. Remaining work up as above. (6) HTN (hypertension) Qualifiers: Hypertension type: essential hypertension Qualified Code(s): I10 - Essential (primary) hypertension Is this a current diagnosis for this admission?: Yes Plan: Normotensive today. Continue lisinopril 5 mg daily and metoprolol 12.5 mg twice daily. Continue clonidine 0.1 mg/24hr transdermal patch. (7) Dehydration Is this a current diagnosis for this admission?: Yes Plan: Resolved. Secondary to poor p.o. intake and evidenced by hypernatremia and KIRSTEN. Tube feeds and free water flushes. (8) Bipolar 1 disorder, depressed Is this a current diagnosis for this admission?: Yes Plan: Depakote 250 mg twice daily. (9) Urine retention Is this a current diagnosis for this admission?: Yes Plan: Multiple bladder scans > 350mL Osorio placed 03/24/2018 (10) UTI (urinary tract infection) Qualifiers: Urinary tract infection type: acute cystitis Hematuria presence: with hematuria Qualified Code(s): N30.01 - Acute cystitis with hematuria Is this a current diagnosis for this admission?: Yes Plan: Urinalysis positive for UTI. Urine culture shows staph aureus. Blood cultures shows staph aureus. Continue Cefazolin 2G q8h - ID recommendations. - Time Time Spent with patient: 15-24 minutes Medications reviewed and adjusted accordingly: Yes Anticipated discharge: Home - Inpatient Certification Based on my medical assessment, after consideration of the patient's comorbidities, presenting symptoms, or acuity I expect that the services needed warrant INPATIENT care.: Yes I certify that my determination is in accordance with my understanding of Medicare's requirements for reasonable and necessary INPATIENT services [42 CFR 412.3e].: Yes Medical Necessity: Risk of Complication if Not Cared For in Hospital - Plan Summary Plan Summary: CONTINUE ENTERAL FEEDING. NO CHANGES TO MEDICATION REGIMEN. PLAN FOR PEG PLACEMENT WEDNESDAY. TRANSFER TO [facility] NEXT WEEK.
[2018-03-25] MEDS: INSULIN LISPRO 100 UNIT/ML 3 ML VIAL SUBCUT PRN (18:06)
[2018-03-25] MEDS: ATORVASTATIN CALCIUM 20 MG TABLET NG SCH (22:17)
[2018-03-25] MEDS: ASPIRIN 81 MG TABLET, CHEWABLE NG SCH (22:18)
[2018-03-26] MEDS: CEFAZOLIN SODIUM 2 GM in DEXTROSE 5%-WATER 100 ML IV SCH ×3 (06:00→22:12)
[2018-03-26] MEDS: VALPROATE SODIUM SYRUP 250 MG/5 ML UDCUP PO SCH ×2 (06:00→18:19)
[2018-03-26] MEDS: POLYETHYLENE GLYCOL 3350 POWDER 17 GM/1 PACKET NG SCH (11:08)
[2018-03-26] MEDS: POTASSIUM CHLORIDE 20 MEQ/15 ML UDCUP PO SCH (11:08)
[2018-03-26] MEDS: FAMOTIDINE 20 MG TABLET NG SCH ×2 (11:08→22:13)
[2018-03-26] MEDS: ENOXAPARIN SODIUM INJ 40 MG/0.4 ML DISP.SYRIN SUBCUT SCH (11:09)
[2018-03-26] MEDS: LISINOPRIL 10 MG TABLET NG SCH (11:09)
[2018-03-26] MEDS: METOPROLOL TARTRATE 25 MG TABLET NG SCH ×2 (11:09→22:12)
[2018-03-26] MEDS: INSULIN LISPRO 100 UNIT/ML 3 ML VIAL SUBCUT PRN ×2 (11:11→18:19)
[2018-03-26] MEDS: MULTIVITAMIN ORAL LIQUID 60 ML NG SCH (15:27)
--- NOTE | 2018-03-26 15:39 | PDOC PROGRESS REPORT ---
Subjective Progress Note for:: 03/26/18 Subjective:: The patient is a 57-year-old female with a past medical history of CAD, [place] x2, hypertension, hyperlipidemia, COPD, DM 2, GERD, bipolar, depression, schizoaffective disorder who initially presented to the emergency department on 02/26/18 with a psychiatric complaint and spent 6 days on psych hold in the emergency department pending placement. Patient then began complaining of chest discomfort and so was referred to the hospitalist service for admission and management on 03/04/18. Cardiac workup revealed LVEF 30%. The patient's mental status has plateaued. She is able to intermittently answer questions appropriately, speaking in 2-3 word phrases. The patient does make eye contact and she is intermittently following commands today. ROS is limited secondary to altered mental status. Plan for PEG placement on Wednesday and transfer to [facility] early next week. Reason For Visit: HYPERNATREMIA, URINARY RETENTION Physical Exam Vital Signs: Temp Pulse Resp BP Pulse Ox 97.4 F 73 16 137/72 H 99 03/26/18 11:12 03/26/18 11:12 03/26/18 11:12 03/26/18 11:12 03/26/18 11:12 Intake & Output 03/25/18 03/26/18 03/27/18 06:59 06:59 06:59 Intake Total 1940 1230 100 Output Total 1800 1275 320 Balance 140 -45 -220 Weight 72.3 kg 73.7 kg General appearance: PRESENT: no acute distress Head exam: PRESENT: atraumatic Eye exam: PRESENT: conjunctiva pink, PERRLA Mouth exam: PRESENT: moist Teeth exam: PRESENT: poor dentation Neck exam: PRESENT: full ROM Respiratory exam: PRESENT: clear to auscultation ailyn, symmetrical, unlabored Cardiovascular exam: PRESENT: +S1, +S2 Pulses: PRESENT: normal radial pulses, normal dorsalis pedis pul GI/Abdominal exam: PRESENT: soft. ABSENT: distended, tenderness Rectal exam: PRESENT: deferred Extremities exam: ABSENT: full ROM - LINITED ROM TO RLE. KNEE IS CONTRACTED, pedal edema Musculoskeletal exam: ABSENT: ambulatory, full ROM Neurological exam: PRESENT: awake, oriented to person. ABSENT: oriented to place, oriented to time, oriented to situation Skin exam: PRESENT: dry, intact, normal color Results Laboratory Results: 03/24/18 07:22 03/24/18 07:22 03/21/18 07:35 Blood Blood Culture - Final NO GROWTH IN 5 DAYS 03/21/18 06:40 Blood Blood Culture - Final NO GROWTH IN 5 DAYS 03/18/18 17:15 Blood Blood Culture - Final Staphylococcus Aureus 02/28/18 03/01/18 03/01/18 21:25 01:45 08:51 CK-MB (CK-2) Troponin I 0.069 0.063 0.068 03/04/18 03/04/18 03/04/18 11:43 15:30 20:48 CK-MB (CK-2) 2.03 Troponin I 0.055 0.048 0.044 03/05/18 03:10 CK-MB (CK-2) Troponin I 0.063 Impressions: Head CT 03/01/18 18:50 IMPRESSION: MILD CHRONIC CHANGES OF ATROPHY AND MICROVASCULAR ISCHEMIA. 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 NO ACUTE PROCESS. EVIDENCE OF ACUTE STROKE: NO. Abdomen/Pelvis CT 03/04/18 10:32 IMPRESSION: Small volume ascites. No additional evidence of acute intra- abdominal/pelvic process. Chest X-Ray 03/14/18 00:00 IMPRESSION: NO ACUTE RADIOGRAPHIC FINDING IN THE CHEST. KUB X-Ray 03/19/18 10:09 IMPRESSION: NASOGASTRIC TUBE IN THE STOMACH. NO RADIOGRAPHIC EVIDENCE FOR ACUTE ABDOMINAL DISEASE. Cervical Spine MRI 03/20/18 00:00 IMPRESSION: NORMAL MRI CERVICAL SPINE. Head MRI 03/20/18 00:00 IMPRESSION: ATROPHY AND CHRONIC MICRO-VASCULAR ISCHEMIC CHANGES. FOCAL AREAS OF ABNORMAL WHITE MATTER SIGNAL IN THE POSTERIOR RIGHT PARIETAL LOBE CORRESPONDING TO SIMILAR FINDINGS ON PRIOR CT, CONSISTENT WITH OLD INFARCT. NO ACUTE FINDINGS. EVIDENCE OF ACUTE STROKE: NO. Status: Imported from PACS Assessment & Plan - Diagnosis (1) Acute encephalopathy Is this a current diagnosis for this admission?: Yes Plan: Improving Awake, makes eye contact and able to track. Intermittently follows simple commands (gross motor movement) but cannot perform complex tasks. Intermittently answer questions appropriately with 2-3 word phrases Unclear etiology; likely multifactorial - hypernatremia, dehydration, hype rtension, underlying mental health disorders (bipolar, schizoaffective disorder), and possibly hospital psychosis. Head CT (03/01/18) mild chronic changes of atrophy with microvascular ischemia and an old right parietal infarct but no acute processes. 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 UA (+) UTI HIV negative Hepatitis panel is negative Will provide for patient safety; fall, aspiration precautions. Supportive care. Will treat UTI; Cefazolin 2Gm q8hr per ID recommendations Plan for PEG tube placement on Wednesday (2) Hypernatremia Is this a current diagnosis for this admission?: Yes Plan: Have ordered tube feeds with free water flushes every hourly (reference transplant registered nurse's note) rejoiner is consulted. Previously spoke with Dr. Hadley; does not feel that there is an additional workup needed for hypernatremia/KIRSTEN. Serial chemistries. (3) Hypokalemia Is this a current diagnosis for this admission?: Yes Plan: Resolved. Secondary to poor p.o. intake. Continue replacement as needed. Now receiving enteral nutrition via tube feeds. Serial chemistries. (4) Ischemic cardiomyopathy EF 30% Is this a current diagnosis for this admission?: Yes Plan: Echocardiogram revealed LVEF of 30% with severe global hypokinesis of the left ventricle, paradoxical septal wall motion consistent with right ventricular volume overload. She appears compensated without exacerbation at this time. We will continue medication regiment; lisinopril, metoprolol, daily aspirin, atorvastatin (5) Somnolence Is this a current diagnosis for this admission?: Yes Plan: Continues to improve; patient now is awake. Able to speak in 2-3 word sentences. Will intermittently answer questions appropriately. TSH normal. Cortisol is acceptable. Continue to monitor. Remaining work up as above. (6) HTN (hypertension) Qualifiers: Hypertension type: essential hypertension Qualified Code(s): I10 - Essential (primary) hypertension Is this a current diagnosis for this admission?: Yes Plan: Normotensive today. Continue lisinopril 5 mg daily and metoprolol 12.5 mg twice daily. Continue clonidine 0.1 mg/24hr transdermal patch. (7) Dehydration Is this a current diagnosis for this admission?: Yes Plan: Resolved. Secondary to poor p.o. intake and evidenced by hypernatremia and KIRSTEN. Tube feeds and free water flushes. (8) Bipolar 1 disorder, depressed Is this a current diagnosis for this admission?: Yes Plan: Depakote 250 mg twice daily. (9) Urine retention Is this a current diagnosis for this admission?: Yes Plan: Multiple bladder scans > 350mL Osorio placed 03/24/2018 (10) UTI (urinary tract infection) Qualifiers: Urinary tract infection type: acute cystitis Hematuria presence: with hematuria Qualified Code(s): N30.01 - Acute cystitis with hematuria Is this a current diagnosis for this admission?: Yes Plan: Urinalysis positive for UTI. Urine culture shows staph aureus. Blood cultures shows staph aureus. Continue Cefazolin 2G q8h - ID recommendations. - Time Time Spent with patient: 15-24 minutes Medications reviewed and adjusted accordingly: Yes Anticipated discharge: Home - Inpatient Certification Based on my medical assessment, after consideration of the patient's comorbidities, presenting symptoms, or acuity I expect that the services needed warrant INPATIENT care.: Yes I certify that my determination is in accordance with my understanding of Medicare's requirements for reasonable and necessary INPATIENT services [42 CFR 412.3e].: Yes Medical Necessity: Risk of Complication if Not Cared For in Hospital - Plan Summary Plan Summary: CONTINUE ABX. CONTINUE ENTERAL FEEDING. CHECK DEPAKOTE LEVEL IN AM. PEG TUBE PLACEMENT WEDNESDAY
[2018-03-26] MEDS: ATORVASTATIN CALCIUM 20 MG TABLET NG SCH (22:13)
[2018-03-26] MEDS: ASPIRIN 81 MG TABLET, CHEWABLE NG SCH (22:13)
--- NOTE | 2018-03-27 01:59 | RADIOLOGY REPORT (SQ) ---
EXAM DESCRIPTION: XR CHEST 1 VIEW COMPLETED DATE/TME: 03/27/2018 00:00 CLINICAL HISTORY: 57 years, Female, ng tube placement COMPARISON: 03/14/2018 chest NUMBER OF VIEWS: 1 TECHNIQUE: Portable chest LIMITATIONS: None. FINDINGS: The heart size is stable. Enteric tube with the distal tip in the left upper quadrant. Osteopenia. Small left pleural effusion. Minimal adjacent airspace opacity. No pneumothorax. IMPRESSION: Small left effusion with minimal adjacent airspace opacity. Enteric tube in place. copyright 2010 [employer]- All Rights Reserved
[2018-03-27] MEDS: CEFAZOLIN SODIUM 2 GM in DEXTROSE 5%-WATER 100 ML IV SCH ×3 (07:02→22:16)
--- NOTE | 2018-03-27 07:45 | RADIOLOGY REPORT (SQ) ---
EXAM DESCRIPTION: X-ray single view chest. CLINICAL HISTORY: 57 years Female, ng tube insertion COMPARISON: 03/27/2018 at 1:39 AM TECHNIQUE: Single portable view of the chest performed on 03/27/2018 at 6:31 AM FINDINGS: The lungs are well expanded. There is mild patchy volume loss in the left inferior hemithorax possibly due to a combination of pleural fluid, atelectasis or inflammatory changes. There is no evidence of a pneumothorax. The cardiac silhouette is stable and enlarged. There are postsurgical changes consistent with prior median sternotomy. The mediastinal contours are normal. No acute osseous abnormality is identified. There is an old fracture of the posterior left seventh rib. No focal soft tissue abnormalities are seen. Lines and tubes: The tip of the feeding tube extends below the diaphragm and projects to the right of the spine in the region of the distal stomach. IMPRESSION: 1. The tip of the feeding tube projects over the region of the distal stomach. 2. Mild volume loss in the left inferior hemithorax possibly due to a combination of pleural fluid, atelectasis or inflammatory changes. 3. Stable mild cardiomegaly and prior median sternotomy.
[2018-03-27] MEDS: MULTIVITAMIN ORAL LIQUID 60 ML NG SCH (10:13)
[2018-03-27] MEDS: POLYETHYLENE GLYCOL 3350 POWDER 17 GM/1 PACKET NG SCH (10:14)
[2018-03-27] MEDS: LISINOPRIL 10 MG TABLET NG SCH (10:14)
[2018-03-27] MEDS: VALPROATE SODIUM SYRUP 250 MG/5 ML UDCUP PO SCH ×2 (10:14→17:49)
[2018-03-27] MEDS: METOPROLOL TARTRATE 25 MG TABLET NG SCH ×2 (10:14→22:15)
[2018-03-27] MEDS: ENOXAPARIN SODIUM INJ 40 MG/0.4 ML DISP.SYRIN SUBCUT SCH (10:15)
[2018-03-27] MEDS: FAMOTIDINE 20 MG TABLET NG SCH ×2 (10:15→22:16)
[2018-03-27] MEDS: POTASSIUM CHLORIDE 20 MEQ/15 ML UDCUP PO SCH (10:15)
--- NOTE | 2018-03-27 16:44 | PDOC PROGRESS REPORT ---
Subjective Progress Note for:: 03/27/18 Subjective:: The patient is a 57-year-old female with a past medical history of CAD, [place] x2, hypertension, hyperlipidemia, COPD, DM 2, GERD, bipolar, depression, schizoaffective disorder who initially presented to the emergency department on 02/26/18 with a psychiatric complaint and spent 6 days on psych hold in the emergency department pending placement. Patient then began complaining of chest discomfort and so was referred to the hospitalist service for admission and management on 03/04/18. Cardiac workup revealed LVEF 30%. The patient pulled out her NG tube twice overnight. Has been replaced and enteral feeding has been resumed. The patient has been asking for sips of water. RN performed bedside swallow evaluation and the patient was able to tolerate drinking clear liquids. Plan for speech evaluation tomorrow. The patient is able to intermittently answer questions appropriately, speaking in 2-3 word phrases. The patient does make eye contact and she is intermittently following commands today. ROS is limited secondary to altered mental status. Family at the bedside states that the patient has been staring at the wall and pointing at the wall, as if she were hallucinating. Unfortunately, this is not a new finding with this patient. She has a history of hallucinations and delusions. At this time she is not a harm to herself or anyone else. Reason For Visit: HYPERNATREMIA, URINARY RETENTION Physical Exam Vital Signs: Temp Pulse Resp BP Pulse Ox 98.6 F 69 17 139/83 H 98 03/27/18 15:44 03/27/18 15:44 03/27/18 15:44 03/27/18 15:44 03/27/18 15:44 Intake & Output 03/26/18 03/27/18 03/28/18 06:59 06:59 06:59 Intake Total 1230 1005 100 Output Total 1275 870 Balance -45 135 100 Weight 73.7 kg 72.9 kg General appearance: PRESENT: no acute distress, well-developed, well-nourished Head exam: PRESENT: atraumatic Eye exam: PRESENT: conjunctiva pink, PERRLA Ear exam: PRESENT: normal external ear exam Mouth exam: PRESENT: moist, tongue midline Teeth exam: PRESENT: poor dentation Neck exam: PRESENT: full ROM Respiratory exam: PRESENT: clear to auscultation ailyn, symmetrical, unlabored Cardiovascular exam: PRESENT: +S1, +S2 Pulses: PRESENT: normal radial pulses, normal dorsalis pedis pul Vascular exam: PRESENT: normal capillary refill GI/Abdominal exam: PRESENT: normal bowel sounds, soft. ABSENT: tenderness Rectal exam: PRESENT: deferred Extremities exam: ABSENT: full ROM Musculoskeletal exam: PRESENT: other - R knee very stiff and patient winces in pain when staff attempts to move RLE. ABSENT: ambulatory, full ROM Neurological exam: PRESENT: awake. ABSENT: oriented to person, oriented to place, oriented to time, oriented to situation Skin exam: PRESENT: dry, intact, normal color Results Laboratory Results: 03/24/18 07:22 03/24/18 07:22 02/28/18 03/01/18 03/01/18 21:25 01:45 08:51 CK-MB (CK-2) Troponin I 0.069 0.063 0.068 03/04/18 03/04/18 03/04/18 11:43 15:30 20:48 CK-MB (CK-2) 2.03 Troponin I 0.055 0.048 0.044 03/05/18 03:10 CK-MB (CK-2) Troponin I 0.063 Impressions: Head CT 03/01/18 18:50 IMPRESSION: MILD CHRONIC CHANGES OF ATROPHY AND MICROVASCULAR ISCHEMIA. 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 NO ACUTE PROCESS. EVIDENCE OF ACUTE STROKE: NO. Abdomen/Pelvis CT 03/04/18 10:32 IMPRESSION: Small volume ascites. No additional evidence of acute intra- abdominal/pelvic process. KUB X-Ray 03/19/18 10:09 IMPRESSION: NASOGASTRIC TUBE IN THE STOMACH. NO RADIOGRAPHIC EVIDENCE FOR ACUTE ABDOMINAL DISEASE. Cervical Spine MRI 03/20/18 00:00 IMPRESSION: NORMAL MRI CERVICAL SPINE. Head MRI 03/20/18 00:00 IMPRESSION: ATROPHY AND CHRONIC MICRO-VASCULAR ISCHEMIC CHANGES. FOCAL AREAS OF ABNORMAL WHITE MATTER SIGNAL IN THE POSTERIOR RIGHT PARIETAL LOBE CORRESPONDING TO SIMILAR FINDINGS ON PRIOR CT, CONSISTENT WITH OLD INFARCT. NO ACUTE FINDINGS. EVIDENCE OF ACUTE STROKE: NO. Chest X-Ray 03/27/18 00:00 IMPRESSION: 1. The tip of the feeding tube projects over the region of the distal stomach. 2. Mild volume loss in the left inferior hemithorax possibly due to a combination of pleural fluid, atelectasis or inflammatory changes. 3. Stable mild cardiomegaly and prior median sternotomy. Status: Imported from PACS Assessment & Plan - Diagnosis (1) Acute encephalopathy Is this a current diagnosis for this admission?: Yes Plan: Improving Awake, makes eye contact and able to track. Intermittently follows simple commands (gross motor movement) but cannot perform complex tasks. Intermittently answer questions appropriately with 2-3 word phrases Unclear etiology; likely multifactorial - hypernatremia, dehydration, hypertension, underlying mental health disorders (bipolar, schizoaffective disorder), and possibly hospital psychosis. Head CT (03/01/18) mild chronic changes of atrophy with microvascular ischemia and an old right parietal infarct but no acute processes. 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 UA (+) UTI HIV negative Hepatitis panel is negative Will provide for patient safety; fall, aspiration precautions. Supportive care. Will treat UTI; Cefazolin 2Gm q8hr per ID recommendations Plan for PEG tube placement on Wednesday (2) Hypernatremia Is this a current diagnosis for this admission?: Yes Plan: Have ordered tube feeds with free water flushes every hourly (reference registered nurse teacher's note) roofing layer is consulted. Previously spoke with Dr. Hadley; does not feel that there is an additional workup needed for hypernatremia/KIRSTEN. Serial chemistries. (3) Hypokalemia Is this a current diagnosis for this admission?: Yes Plan: Resolved. Secondary to poor p.o. intake. Continue replacement as needed. Now receiving enteral nutrition via tube feeds. Serial chemistries. (4) Ischemic cardiomyopathy EF 30% Is this a current diagnosis for this admission?: Yes Plan: Echocardiogram revealed LVEF of 30% with severe global hypokinesis of the left ventricle, paradoxical septal wall motion consistent with right ventricular v olume overload. She appears compensated without exacerbation at this time. We will continue medication regiment; lisinopril, metoprolol, daily aspirin, atorvastatin (5) Somnolence Is this a current diagnosis for this admission?: Yes Plan: Continues to improve; patient now is awake. Able to speak in 2-3 word sentences. Will intermittently answer questions appropriately. TSH normal. Cortisol is acceptable. Continue to monitor. Remaining work up as above. (6) HTN (hypertension) Qualifiers: Hypertension type: essential hypertension Qualified Code(s): I10 - Essential (primary) hypertension Is this a current diagnosis for this admission?: Yes Plan: Normotensive today. Continue lisinopril 5 mg daily and metoprolol 12.5 mg twice daily. Continue clonidine 0.1 mg/24hr transdermal patch. (7) Dehydration Is this a current diagnosis for this admission?: Yes Plan: Resolved. Secondary to poor p.o. intake and evidenced by hypernatremia and KIRSTEN. Tube feeds and free water flushes. (8) Bipolar 1 disorder, depressed Is this a current diagnosis for this admission?: Yes Plan: Subtherapeutic Depakote level Increase Depakote dosage from 250 mg twice daily to 500 mg twice daily (9) Urine retention Is this a current diagnosis for this admission?: Yes Plan: Multiple bladder scans > 350mL Osorio placed 03/24/2018 (10) UTI (urinary tract infection) Qualifiers: Urinary tract infection type: acute cystitis Hematuria presence: with hematuria Qualified Code(s): N30.01 - Acute cystitis with hematuria Is this a current diagnosis for this admission?: Yes Plan: Urinalysis positive for UTI. Urine culture shows staph aureus. Blood cultures shows staph aureus. Continue Cefazolin 2G q8h - ID recommendations. - Time Time Spent with patient: 15-24 minutes Medications reviewed and adjusted accordingly: Yes Anticipated discharge: Home - Inpatient Certification Based on my medical assessment, after consideration of the patient's comorbidities, presenting symptoms, or acuity I expect that the services needed warrant INPATIENT care.: Yes I certify that my determination is in accordance with my understanding of Medicare's requirements for reasonable and necessary INPATIENT services [42 CFR 412.3e].: Yes Medical Necessity: Risk of Complication if Not Cared For in Hospital
[2018-03-27] MEDS: ATORVASTATIN CALCIUM 20 MG TABLET NG SCH (22:16)
[2018-03-27] MEDS: ASPIRIN 81 MG TABLET, CHEWABLE NG SCH (22:16)
[2018-03-28] MEDS: NORMAL SALINE 1000 ML 1,000 ML IV PRN ×2 (00:03→09:56)
[2018-03-28] MEDS: VALPROATE SODIUM SYRUP 250 MG/5 ML UDCUP PO SCH ×2 (06:20→18:26)
[2018-03-28] MEDS: CEFAZOLIN SODIUM 2 GM in DEXTROSE 5%-WATER 100 ML IV SCH ×2 (06:21→15:13)
[2018-03-28] MEDS ORDERED: PROPOFOL INJ 200 MG/20 ML VIAL IV ONE (07:53)
[2018-03-28] MEDS ORDERED: MIDAZOLAM 2 MG/2 ML INJ ONE (07:53)
[2018-03-28] MEDS ORDERED: FENTANYL CITRATE INJ/PF 100 MCG/2 ML AMPUL IV PRN ×2 (08:29)
[2018-03-28] MEDS ORDERED: ONDANSETRON HCL INJ/PF 4 MG/2 ML SDV IV PRN ×2 (08:29→14:30)
[2018-03-28] MEDS ORDERED: LABETALOL HCL INJ 20 MG/4 ML DISP.SYRIN IV PRN (08:29)
--- NOTE | 2018-03-28 08:41 | Operative Report ---
Operative Report DATE OF SURGERY: 03/28/18 PREOPERATIVE DIAGNOSIS: 1. Dementia. 2. Dysphasia POSTOPERATIVE DIAGNOSIS: Same mild distal esophagitis OPERATION: 1. Esophagogastroduodenoscopy. 2. Percutaneous endoscopic gastrostomy tube placement SURGEON: LANI YANEZ ANESTHESIA: LMAC TISSUE REMOVED OR ALTERED: None COMPLICATIONS: None ESTIMATED BLOOD LOSS: None INTRAOPERATIVE FINDINGS: See below PROCEDURE: The patient was taken to the preop holding area the main operating where LMAC anesthesia was induced. Arms were tucked, taped to the bed rail temporarily. The abdomen was exposed, prepped and draped sterile fashion. Surgical plan surgical timeout were conducted. Oral mouthpiece was inserted. The flexible upper endoscope was advanced to the oropharynx, down the esophagus through the stomach into the duodenum. This is well tolerated by the patient. There was mild distal esophagitis; stomach was empty except for minimal amount of bile. The duodenum first and second portions was normal. The scope was brought back to the pylorus into the stomach. Insufflation was achieved. A suitable site for placement of the PEG was chosen to the left of midline in the epigastric area. Excellent palpation of the anterior abdominal wall showed deflection of the anterior stomach wall. The skin was anesthetized with 1% lidocaine after prepping the skin with Betadine and alcohol. A small incision made with 11 blade, Jelco needle and catheter threaded through the anterior abdominal wall into the lumen of the stomach. The green wire was then threaded through the Jelco catheter, and snared with the endoscope. The endoscope snare and wire were all brought out the patient's oropharynx. We now positioned a 20 [place] [employer] I percutaneous endoscopic gastrostomy tube over the wire, then brought the wire and PEG tube out through the patient's intra-abdominal wall, ensuring that the bolster was approximately 3-4 cm from the skin level. Appropriate adapter, shutoff valve and Supplied to the feeding tube Repeat upper endoscopy performed uneventfully. This revealed the PEG tube to be in satisfactory position, without undue tension, with no evidence of bleeding or hematoma. We felt the operation was complete. Appropriate sterile dressing was applied to the site of the feeding tube. The patient was taken to recovery room in stable condition. Recommendations: 1. May use feeding tube at any time 2. Reconsult surgery with any questions.
[2018-03-28] MEDS: LISINOPRIL 10 MG TABLET NG SCH (11:21)
[2018-03-28] MEDS: FAMOTIDINE 20 MG TABLET NG SCH ×2 (11:21→22:15)
[2018-03-28] MEDS: METOPROLOL TARTRATE 25 MG TABLET NG SCH ×2 (11:23→22:12)
[2018-03-28] MEDS: ENOXAPARIN SODIUM INJ 40 MG/0.4 ML DISP.SYRIN SUBCUT SCH (11:24)
[2018-03-28] MEDS: POTASSIUM CHLORIDE 20 MEQ/15 ML UDCUP PO SCH (11:24)
--- NOTE | 2018-03-28 15:00 | PDOC PROGRESS REPORT ---
Subjective Progress Note for:: 03/28/18 Subjective:: The patient is a 57-year-old female with a past medical history of CAD, [place] x2, hypertension, hyperlipidemia, COPD, DM 2, GERD, bipolar, depression, schizoaffective disorder who initially presented to the emergency department on 02/26/18 with a psychiatric complaint and spent 6 days on psych hold in the emergency department pending placement. Patient then began complaining of chest discomfort and so was referred to the hospitalist service for admission and management on 03/04/18. Cardiac workup revealed LVEF 30%. The patient went to the OR today for PEG placement. She tolerated the procedure well. Postoperatively, she was resumed on full dose enteral feeding. The patient is able to intermittently answer questions appropriately, speaking in 2-3 word phrases. The patient does make eye contact and she is intermittently following commands today. ROS is limited secondary to altered mental status. The patient is ready for transfer to SNF. Reason For Visit: HYPERNATREMIA, URINARY RETENTION Physical Exam Vital Signs: Temp Pulse Resp BP Pulse Ox 97.6 F 71 17 132/78 H 99 03/28/18 14:30 03/28/18 14:30 03/28/18 14:30 03/28/18 14:30 03/28/18 14:30 Intake & Output 03/27/18 03/28/18 03/29/18 06:59 06:59 06:59 Intake Total 7615 396 5272 Output Total 870 1200 Balance 135 -800 1138 Weight 72.9 kg 73.4 kg General appearance: PRESENT: no acute distress Eye exam: PRESENT: conjunctiva pink, PERRLA Mouth exam: PRESENT: moist Teeth exam: PRESENT: poor dentation Neck exam: PRESENT: full ROM Respiratory exam: PRESENT: clear to auscultation ailyn, symmetrical, unlabored Cardiovascular exam: PRESENT: +S1, +S2 Pulses: PRESENT: normal radial pulses, normal dorsalis pedis pul Vascular exam: PRESENT: normal capillary refill GI/Abdominal exam: PRESENT: soft. ABSENT: distended, tenderness Rectal exam: PRESENT: deferred Extremities exam: PRESENT: full ROM - Limited R OM of the RLE. ABSENT: pedal edema Musculoskeletal exam: PRESENT: normal inspection. ABSENT: ambulatory, deformity Neurological exam: PRESENT: alert, awake, oriented to person, oriented to place. ABSENT: oriented to time, oriented to situation Psychiatric exam: PRESENT: appropriate affect Skin exam: PRESENT: dry, intact, normal color Results Laboratory Results: 03/24/18 07:22 03/24/18 07:22 02/28/18 03/01/18 03/01/18 21:25 01:45 08:51 CK-MB (CK-2) Troponin I 0.069 0.063 0.068 03/04/18 03/04/18 03/04/18 11:43 15:30 20:48 CK-MB (CK-2) 2.03 Troponin I 0.055 0.048 0.044 03/05/18 03:10 CK-MB (CK-2) Troponin I 0.063 Impressions: Head CT 03/01/18 18:50 IMPRESSION: MILD CHRONIC CHANGES OF ATROPHY AND MICROVASCULAR ISCHEMIA. 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 NO ACUTE PROCESS. EVIDENCE OF ACUTE STROKE: NO. Abdomen/Pelvis CT 03/04/18 10:32 IMPRESSION: Small volume ascites. No additional evidence of acute intra- abdominal/pelvic process. KUB X-Ray 03/19/18 10:09 IMPRESSION: NASOGASTRIC TUBE IN THE STOMACH. NO RADIOGRAPHIC EVIDENCE FOR ACUTE ABDOMINAL DISEASE. Cervical Spine MRI 03/20/18 00:00 IMPRESSION: NORMAL MRI CERVICAL SPINE. Head MRI 03/20/18 00:00 IMPRESSION: ATROPHY AND CHRONIC MICRO-VASCULAR ISCHEMIC CHANGES. FOCAL AREAS OF ABNORMAL WHITE MATTER SIGNAL IN THE POSTERIOR RIGHT PARIETAL LOBE CORRES PONDING TO SIMILAR FINDINGS ON PRIOR CT, CONSISTENT WITH OLD INFARCT. NO ACUTE FINDINGS. EVIDENCE OF ACUTE STROKE: NO. Chest X-Ray 03/27/18 00:00 IMPRESSION: 1. The tip of the feeding tube projects over the region of the distal stomach. 2. Mild volume loss in the left inferior hemithorax possibly due to a combination of pleural fluid, atelectasis or inflammatory changes. 3. Stable mild cardiomegaly and prior median sternotomy. Status: Imported from PACS Assessment & Plan - Diagnosis (1) Acute encephalopathy Is this a current diagnosis for this admission?: Yes Plan: Improving Awake, makes eye contact and able to track. Intermittently follows simple commands (gross motor movement) but cannot perform complex tasks. Intermittently answer questions appropriately with 2-3 word phrases Unclear etiology; likely multifactorial - hypernatremia, dehydration, hypertension, underlying mental health disorders (bipolar, schizoaffective disorder), and possibly hospital psychosis. Head CT (03/01/18) mild chronic changes of atrophy with microvascular ischemia and an old right parietal infarct but no acute processes. 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 UA (+) UTI - treating with cefazolin IV per ID recommendations HIV negative Hepatitis panel is negative Will provide for patient safety; fall, aspiration precautions. Supportive care. Will treat UTI; Cefazolin 2Gm q8hr per ID recommendations Per family wishes, the patient had a PEG tube placed in order to continuously receive nutrition. The plan is to send the patient to SNF tomorrow. (2) Hypernatremia Is this a current diagnosis for this admission?: Yes Plan: Have ordered tube feeds with free water flushes every hourl (reference registered pharmacy technician's note) architectural inspector is consulted. Previously spoke with Dr. Hadley; does not feel that there is an additional workup needed for hypernatremia/KIRSTEN. Serial chemistries. (3) Hypokalemia Is this a current diagnosis for this admission?: Yes Plan: Resolved. Secondary to poor p.o. intake. Continue replacement as needed. Now receiving enteral nutrition via tube feeds. (4) Ischemic cardiomyopathy EF 30% Is this a current diagnosis for this admission?: Yes Plan: Echocardiogram revealed LVEF of 30% with severe global hypokinesis of the left ventricle, paradoxical septal wall motion consistent with right ventricular volume overload. She appears compensated without exacerbation at this time. We will continue medication regiment; lisinopril, metoprolol, daily aspirin, atorvastatin (5) Somnolence Is this a current diagnosis for this admission?: Yes Plan: Continues to improve; patient now is awake. Able to speak in 2-3 word sentences. Will intermittently answer questions appropriately. TSH normal. Cortisol is acceptable. Continue to monitor. Remaining work up as above. (6) HTN (hypertension) Qualifiers: Hypertension type: essential hypertension Qualified Code(s): I10 - Essential (primary) hypertension Is this a current diagnosis for this admission?: Yes (7) Dehydration Is this a current diagnosis for this admission?: Yes Plan: Resolved. Secondary to poor p.o. intake and evidenced by hypernatremia and KIRSTEN. Tube feeds and free water flushes via PEG (8) Bipolar 1 disorder, depressed Is this a current diagnosis for this admission?: Yes Plan: Subtherapeutic Depakote level 03/27/2018 Increase Depakote dosage from 250 mg twice daily to 500 mg twice daily (9) Urine retention Is this a current diagnosis for this admission?: Yes Plan: Multiple bladder scans > 350mL Osorio placed 03/24/2018 Will discontinue today in preparation for patient's transfer tomorrow (10) UTI (urinary tract infection) Qualifiers: Urinary tract infection type: acute cystitis Hematuria presence: with hematuria Qualified Code(s): N30.01 - Acute cystitis with hematuria Is this a current diagnosis for this admission?: Yes Plan: Urinalysis positive for UTI. Urine culture shows staph aureus. Blood cultures shows staph aureus. Continue Cefazolin 2G q8h - ID recommendations. Final dose 03/19/2017. - Time Time Spent with patient: 15-24 minutes Medications reviewed and adjusted accordingly: Yes Anticipated discharge: SNF Within: within 24 hours - Inpatient Certification Based on my medical assessment, after consideration of the patient's comorbidities, presenting symptoms, or acuity I expect that the services needed warrant INPATIENT care.: Yes I certify that my determination is in accordance with my understanding of Medicare's requirements for reasonable and necessary INPATIENT services [42 CFR 412.3e].: Yes Medical Necessity: Risk of Complication if Not Cared For in Hospital - Plan Summary Plan Summary: Finish antibiotic treatment of UTI tomorrow. Plan to transfer to [facility] tomorrow.
[2018-03-28] MEDS: MULTIVITAMIN ORAL LIQUID 60 ML NG SCH (15:10)
[2018-03-28] MEDS: ACETAMINOPHEN SOLN 325 MG/10.15 ML UDCUP NG PRN (15:13)
[2018-03-28] MEDS ORDERED: CLONAZEPAM 1 MG TABLET PO ONE (18:00)
[2018-03-28] MEDS: ATORVASTATIN CALCIUM 20 MG TABLET NG SCH (22:15)
[2018-03-28] MEDS: ASPIRIN 81 MG TABLET, CHEWABLE NG SCH (22:15)
[2018-03-29] MEDS: CEFAZOLIN SODIUM 2 GM in DEXTROSE 5%-WATER 100 ML IV SCH ×3 (00:18→16:07)
[2018-03-29] MEDS: VALPROATE SODIUM SYRUP 250 MG/5 ML UDCUP PO SCH ×2 (06:17→17:48)
[2018-03-29] MEDS: CLONIDINE 0.1 MG/24 HR PATCH.TDWK TD SCH (09:56)
[2018-03-29] MEDS: POTASSIUM CHLORIDE 20 MEQ/15 ML UDCUP PO SCH ×2 (09:58→10:00)
[2018-03-29] MEDS: ACETAMINOPHEN SOLN 325 MG/10.15 ML UDCUP NG PRN ×2 (09:58→16:17)
[2018-03-29] MEDS: METOPROLOL TARTRATE 25 MG TABLET NG SCH ×2 (09:59→21:39)
[2018-03-29] MEDS: LISINOPRIL 5 MG TABLET NG SCH (10:00)
[2018-03-29] MEDS: MULTIVITAMIN ORAL LIQUID 60 ML NG SCH (10:00)
[2018-03-29] MEDS: FAMOTIDINE 20 MG TABLET NG SCH ×2 (10:00→21:39)
[2018-03-29] MEDS: ENOXAPARIN SODIUM INJ 40 MG/0.4 ML DISP.SYRIN SUBCUT SCH (10:03)
[2018-03-29] MEDS: NORMAL SALINE 1000 ML 1,000 ML IV PRN ×2 (10:25→23:09)
[2018-03-29] MEDS ORDERED: INSULIN LISPRO 100 UNIT/ML 3 ML VIAL SUBCUT SCH (11:00)
[2018-03-29 13:59] LABS: ANION GAP 10 (5-19); BLOOD UREA NITROGEN 14 mg/dL (7-20); CALCIUM 8.6 mg/dL (8.4-10.2); CARBON DIOXIDE 25 mmol/L (22-30); CHLORIDE 104 mmol/L (98-107); GLUCOSE 181 mg/dL (75-110); POTASSIUM 4.1 mmol/L (3.6-5.0)
--- NOTE | 2018-03-29 15:09 | RADIOLOGY REPORT (SQ) ---
EXAM DESCRIPTION: PICC INSERTION; FLUORO/CV PLACEMENT; U/S GUIDE FOR VASCULAR ACCESS COMPLETED DATE/TIME: 03/29/2018 2:55 pm REASON FOR STUDY: Bacteremia; BACTEREMIA, IV ACCESS FOR ABX R44.3 HALLUCINATIONS, UNSPECIFIED F32.9 MAJOR DEPRESSIVE DISORDER, SINGLE EPISODE, UNSPECIFIED F20.9 SCHIZOPHRENIA, UNSPECIFIED COMPARISON: 03/27/2018 FLUOROSCOPY TIME: 21 seconds 2 images saved to PACS. TECHNIQUE: Fluoroscopic and ultrasound guided PICC placement. LIMITATIONS: None. PROCEDURE: After written consent and assessment were obtained, the patient was brought into the fluo roscopy room and placed supine on the table. Ultrasound evaluation of potential access sites were per formed. After successfully identifying a patent left basilic vein, the left arm was prepped and drape d in a sterile fashion along with the ultrasound probe. The entry site was anesthetized with 1% lidoc bryan. A 21 gauge 7 cm needle was advanced through the skin and into the basilic vein under live ultra sound guidance. An ultrasound image was saved to PACS confirming access site. A .018 guide wire was then inserted through the needle and into the venous system. The needle was then removed and an 11 b lade scalpel was used to make a 1cm skin incision. A 5 fr peel-away sheath was advanced over the wir e and into the venous system. A measurement was then made using the existing wire and live fluoroscop ic guidance. The wire was then removed and trimmed. The PICC was advanced through the peel-away sheat h and into the venous system. The peel-away sheath was removed and the catheter was adhered to the pa tients arm with a stat lock. The catheter was then aspirated and flushed and a sterile bandage was pl aced over the access site. A fluoroscopic spot image was saved to PACS confirming the catheter tip w ithin the cavoatrial junction. IMPRESSION: SUCCESSFUL PLACEMENT OF A 5 FR DUAL LUMEN 40 CM PICC IN THE LEFT BASILIC VEIN. COMMENT: Patient medication list reviewed: Yes- Quality ID# [id number]:Eligible professional attests to doc umenting in the medical record they obtained, updated, or reviewed the patient's current medications. . Quality ID 145: Final reports for procedures using fluoroscopy that document radiation exposure blank tyrese, or exposure time and number of fluorographic images (if radiation exposure indices are not avail able) Quality ID #[id number]: The patient was prepped and draped using maximum sterile barrier technique including cap, mask, sterile gown, sterile gloves, a large sterile sheet, hand hygiene, and 2% Chlorhexidine fo r cutaneous antisepsis. When ultrasound is used, sterile ultrasound techniques are followed requiring sterile gel and sterile probes. TECHNICAL DOCUMENTATION: JOB ID: [id number] [employer]- All Rights Reserved rev-07/16 Reading location - IP/workstation name: [email or web address]
[2018-03-29] MEDS: CLONAZEPAM 1 MG TABLET PO PRN (16:16)
--- NOTE | 2018-03-29 16:47 | PDOC PROGRESS REPORT ---
Subjective Progress Note for:: 03/29/18 Subjective:: The patient is a 57-year-old female with a past medical history of CAD, [place] x2, hypertension, hyperlipidemia, COPD, DM 2, GERD, bipolar, depression, schizoaffective disorder who initially presented to the emergency department on 02/26/18 with a psychiatric complaint and spent 6 days on psych hold in the emergency department pending placement. Patient then began complaining of chest discomfort and so was referred to the hospitalist service for admission and management on 03/04/18. Cardiac workup revealed LVEF 30%. The patient was seen on morning rounds. She is found resting in bed comfortably on room air. She was awake and alert; was able to tell me her name and squeeze my hands upon direction but did not answer any other questions or follow further directions. ROS is limited secondary to altered mental status. No concerns per nursing. Reason For Visit: HYPERNATREMIA, URINARY RETENTION Physical Exam Vital Signs: Temp Pulse Resp BP Pulse Ox 98.0 F 76 17 131/80 H 100 03/29/18 11:07 03/29/18 14:00 03/29/18 11:07 03/29/18 11:07 03/29/18 11:07 Intake & Output 03/28/18 03/29/18 03/30/18 06:59 06:59 06:59 Intake Total 400 2158 992 Output Total 1200 1060 Balance -800 1098 992 Weight 73.4 kg 75.4 kg General appearance: PRESENT: no acute distress, well-developed, well-nourished Head exam: PRESENT: atraumatic, normocephalic Eye exam: PRESENT: conjunctiva pink, EOMI, PERRLA. ABSENT: scleral icterus Ear exam: PRESENT: normal external ear exam Mouth exam: PRESENT: moist, tongue midline Teeth exam: PRESENT: poor dentation Neck exam: ABSENT: carotid bruit, JVD, lymphadenopathy, thyromegaly Respiratory exam: PRESENT: clear to auscultation ailyn, symmetrical, unlabored. ABSENT: rales, rhonchi, wheezes Cardiovascular exam: PRESENT: RRR. ABSENT: diastolic murmur, rubs, systolic murmur Pulses: PRESENT: normal dorsalis pedis pul Vascular exam: PRESENT: normal capillary refill GI/Abdominal exam: PRESENT: normal bowel sounds, soft. ABSENT: distended, guarding, mass, organolmegaly, rebound, tenderness Rectal exam: PRESENT: deferred Extremities exam: PRESENT: full ROM. ABSENT: calf tenderness, clubbing, pedal edema Musculoskeletal exam: PRESENT: tenderness - RLE Neurological exam: PRESENT: alert, awake, oriented to person, CN II-XII grossly intact. ABSENT: motor sensory deficit Psychiatric exam: PRESENT: appropriate affect, normal mood. ABSENT: homicidal ideation, suicidal ideation Skin exam: PRESENT: dry, intact, warm. ABSENT: cyanosis, rash Results Laboratory Results: 03/24/18 07:22 03/29/18 13:22 03/29/18 13:22 Sodium 139.0 Potassium 4.1 Chloride 104 Carbon Dioxide 25 Anion Gap 10 BUN 14 Creatinine 0.64 Est GFR ( Amer) > 60 Est GFR (Non-Af Amer) > 60 Glucose 181 H Calcium 8.6 02/28/18 03/01/18 03/01/18 21:25 01:45 08:51 CK-MB (CK-2) Troponin I 0.069 0.063 0.068 03/04/18 03/04/18 03/04/18 11:43 15:30 20:48 CK-MB (CK-2) 2.03 Troponin I 0.055 0.048 0.044 03/05/18 03:10 CK-MB (CK-2) Troponin I 0.063 Impressions: Head CT 03/01/18 18:50 IMPRESSION: MILD CHRONIC CHANGES OF ATROPHY AND MICROVASCULAR ISCHEMIA. 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 NO ACUTE PROCESS. EVIDENCE OF ACUTE STROKE: NO. Abdomen/Pelvis CT 03/04/18 10:32 IMPRESSION: Small volume ascites. No additional evidence of acute intra- abdominal/pelvic process. KUB X-Ray 03/19/18 10:09 IMPRESSION: NASOGASTRIC TUBE IN THE STOMACH. NO RADIOGRAPHIC EVIDENCE FOR ACUTE ABDOMINAL DISEASE. Cervical Spine MRI 03/20/18 00:00 IMPRESSION: NORMAL MRI CERVICAL SPINE. Head MRI 03/20/18 00:00 IMPRESSION: ATROPHY AND CHRONIC MICRO-VASCULAR ISCHEMIC CHANGES. FOCAL AREAS OF ABNORMAL WHITE MATTER SIGNAL IN THE POSTERIOR RIGHT PARIETAL LOBE CORRESPONDING TO SIMILAR FINDINGS ON PRIOR CT, CONSISTENT WITH OLD INFARCT. NO ACUTE FINDINGS. EVIDENCE OF ACUTE STROKE: NO. Chest X-Ray 03/27/18 00:00 IMPRESSION: 1. The tip of the feeding tube projects over the region of the distal stomach. 2. Mild volume loss in the left inferior hemithorax possibly due to a combination of pleural fluid, atelectasis or inflammatory changes. 3. Stable mild cardiomegaly and prior median sternotomy. Guidance Fluoroscopy 03/29/18 00:00 IMPRESSION: SUCCESSFUL PLACEMENT OF A 5 FR DUAL LUMEN 40 CM PICC IN THE LEFT BASILIC VEIN. Interventional Vascular Procedure 03/29/18 00:00 IMPRESSION: SUCCESSFUL PLACEMENT OF A 5 FR DUAL LUMEN 40 CM PICC IN THE LEFT BASILIC VEIN. PICC Line Insertion 03/29/18 00:00 IMPRESSION: SUCCESSFUL PLACEMENT OF A 5 FR DUAL LUMEN 40 CM PICC IN THE LEFT BASILIC VEIN. Assessment & Plan - Diagnosis (1) Acute encephalopathy Is this a current diagnosis for this admission?: Yes Plan: Plateaued; likely near baseline. A&O to self today, makes eye contact and follows movement around the room, was able to auto body repair technician on command. Intermittently answers questions. Unclear etiology; likely multifactorial secondary to hypernatremia, dehydration, hypertension, underlying mental health disorders (bipolar, schizoaffective disorder), and possibly hospital psychosis. Some concern for infection; wound culture and urine culture match, low-grade temperature. Head CT (03/01/18) mild chronic changes of atrophy with microvascular ischemia and an old right parietal infarct but no acute processes. 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 Urinalysis revealed urinary tract infection Depakote level low; now receiving via NG tube AM cortisol level acceptable. HIV negative Hepatitis panel is negative RPR negative Will provide for patient safety; fall, aspiration precautions. Supportive care. Now with PEG for nutrition support. Will treat bacteremia; cefazolin 2 g every 8 hours per ID through April 04. Psychiatric team re-consulted; the patient's reduced mental status likely related to an acute infectious process in the setting of early onset dementia (reference MRI results demonstrating atrophy and chronic microvascular changes/CVA). (2) Hypernatremia Is this a current diagnosis for this admission?: Yes Plan: Resolved; 139.0 today. Have ordered tube feeds with free water flushes every hourly (reference endoscopy registered nurse's note). flexboard operator is consulted. Previously spoke with Dr. Hadley; does not feel that there is an additional workup needed for hypernatremia/KIRSTEN. Confirms that the patient's current hyponatremia would not cause her decreased mental status. (3) Hypokalemia Is this a current diagnosis for this admission?: Yes Plan: Replete; secondary to poor p.o. intake. Continue daily potassium supplement. Now receiving enteral nutrition via tube feeds. Serial chemistries. (4) Ischemic cardiomyopathy EF 30% Is this a current diagnosis for this admission?: Yes Plan: Echocardiogram revealed LVEF of 30% with severe global hypokinesis of the left ventricle, paradoxical septal wall motion consistent with right ventricular volume overload. She appears compensated without exacerbation at this time. We will continue medication regiment; lisinopril, metoprolol, daily aspirin, atorvastatin (5) HTN (hypertension) Qualifiers: Hypertension type: essential hypertension Qualified Code(s): I10 - Essential (primary) hypertension Is this a current diagnosis for this admission?: Yes Plan: Normotensive today. Continue lisinopril 5 mg daily and metoprolol 12.5 mg twice daily. Continue clonidine 0.1 mg/24hr transdermal patch. (6) Somnolence Is this a current diagnosis for this admission?: Yes Plan: Continues to improve; patient now is awake. Intermittently answering simple questions and following one-step simple commands. TSH normal. AM cortisol is acceptable. Continue to monitor. Remaining work up as above. (7) Dehydration Is this a current diagnosis for this admission?: Yes Plan: Resolved. Secondary to poor p.o. intake and evidenced by hypernatremia and KIRSTEN. Tube feeds and free water flushes. Continue to encourage p.o. fluids with 1:1 supervision. (8) Bipolar 1 disorder, depressed Is this a current diagnosis for this admission?: Yes Plan: Subtherapeutic (03/27/2018) Depakote increased to 500 mg twice daily. (9) Urine retention Is this a current diagnosis for this admission?: Yes Plan: Pt with bladder distention on exam; bladder scan demonstrated >999 mL. Urinalysis positive for UTI. Bladder scan every 6 hours; continues to have urinary retention. Osorio catheter placed. Started on Flomax daily. Recommend urology follow-up in 3 weeks. (10) UTI (urinary tract infection) Qualifiers: Urinary tract infection type: acute cystitis Hematuria presence: with hematuria Qualified Code(s): N30.01 - Acute cystitis with hematuria Is this a current diagnosis for this admission?: Yes Plan: Urinalysis positive for UTI. Urine culture shows staph aureus. Blood cultures shows staph aureus. Initially treated with vancomycin and Zosyn; transition to cefazolin once sensitivities were available. UTI has been adequately treated, however, continues on ceftezole and for bacteremia. (11) Bacteremia Is this a current diagnosis for this admission?: Yes Plan: MSSA identified in blood cultures 03/18/2018. Repeat blood cultures have no growth (03/21/2018). Infectious disease was consulted; recommends continuing cefazolin 2 g every 8 hours through April 04. PICC line was placed today. ID also recommends repeating echocardiogram to assess for vegetations; spoke with integration technician today, will obtain a limited study. If study is suboptimal or suggestive of vegetations will require IDALMIS to determine full course of therapy. - Time Time Spent with patient: 25-34 minutes Medications reviewed and adjusted accordingly: Yes Anticipated discharge: SNF Within: within 48 hours
[2018-03-29] MEDS: TAMSULOSIN HCL 0.4 MG CAP.SR.24H PO SCH (17:48)
[2018-03-29] MEDS: INSULIN LISPRO 100 UNIT/ML 3 ML VIAL SUBCUT PRN (18:20)
[2018-03-29] MEDS ORDERED: NORMAL SALINE 10 ML SDV (AFTER EACH USE) IV PRN (20:30)
[2018-03-29] MEDS: ATORVASTATIN CALCIUM 20 MG TABLET NG SCH (21:39)
[2018-03-29] MEDS: ASPIRIN 81 MG TABLET, CHEWABLE NG SCH (21:39)
[2018-03-29] MEDS: NORMAL SALINE 10 ML SDV (SCHEDULED) IV SCH (21:40)
[2018-03-30] MEDS: VALPROATE SODIUM SYRUP 250 MG/5 ML UDCUP PO SCH ×2 (05:15→17:18)
[2018-03-30] MEDS: NORMAL SALINE 1000 ML 1,000 ML IV PRN ×2 (08:07→18:29)
[2018-03-30] MEDS: POTASSIUM CHLORIDE 20 MEQ/15 ML UDCUP PO SCH (11:25)
[2018-03-30] MEDS: ENOXAPARIN SODIUM INJ 40 MG/0.4 ML DISP.SYRIN SUBCUT SCH (11:26)
[2018-03-30] MEDS: METOPROLOL TARTRATE 25 MG TABLET NG SCH ×2 (11:26→22:42)
[2018-03-30] MEDS: LISINOPRIL 5 MG TABLET NG SCH (11:27)
[2018-03-30] MEDS: NORMAL SALINE 10 ML SDV (SCHEDULED) IV SCH ×2 (11:27→22:45)
[2018-03-30] MEDS: MULTIVITAMIN ORAL LIQUID 60 ML NG SCH (11:27)
[2018-03-30] MEDS: FAMOTIDINE 20 MG TABLET NG SCH ×2 (11:28→22:42)
[2018-03-30] MEDS ORDERED: FENTANYL CITRATE INJ/PF 100 MCG/2 ML AMPUL IV PRN (15:34)
--- NOTE | 2018-03-30 15:44 | PDOC PROGRESS REPORT ---
Subjective Progress Note for:: 03/30/18 Subjective:: The patient is a 57-year-old female with a past medical history of CAD, GA x2, hypertension, hyperlipidemia, COPD, DM 2, GERD, bipolar, depression, schizoaffective disorder who initially presented to the emergency department on 02/26/18 with a psychiatric complaint and spent 6 days on psych hold in the emergency department pending placement. Patient then began complaining of chest discomfort and so was referred to the hospitalist service for admission and management on 03/04/18. Cardiac workup revealed LVEF 30%. The patient was seen on morning rounds. She is found resting in bed comfortably on room air. She was awake and alert; was able to tell me her name and squeezed my hands when asked. She does not answer any further questions. ROS is limited secondary to altered mental status. Nursing reports the patient has been refusing to move her right lower extremity and grimaces when passive range of movement is attempted. Reason For Visit: HYPERNATREMIA, URINARY RETENTION Physical Exam Vital Signs: Temp Pulse Resp BP Pulse Ox 97.7 F 77 17 132/77 H 91 L 03/30/18 12:04 03/30/18 12:04 03/30/18 12:04 03/30/18 12:04 03/30/18 12:04 Intake & Output 03/29/18 03/30/18 03/31/18 06:59 06:59 06:59 Intake Total 2158 3840 1647 Output Total 1060 500 Balance 1098 3340 1647 Weight 75.4 kg 77.5 kg General appearance: PRESENT: no acute distress, well-developed Head exam: PRESENT: atraumatic, normocephalic Eye exam: PRESENT: conjunctiva pink, EOMI, PERRLA. ABSENT: scleral icterus Mouth exam: PRESENT: moist, tongue midline Teeth exam: PRESENT: poor dentation Neck exam: ABSENT: carotid bruit, JVD, lymphadenopathy, thyromegaly Respiratory exam: PRESENT: clear to auscultation ailyn, symmetrical, unlabored. ABSENT: rales, rhonchi, wheezes Cardiovascular exam: PRESENT: RRR, +S1, +S2. ABSENT: diastolic murmur, rubs, systolic murmur Pulses: PRESENT: normal dorsalis pedis pul Vascular exam: PRESENT: normal capillary refill GI/Abdominal exam: PRESENT: normal bowel sounds, soft, other - peg tube w/ tube feeds. ABSENT: distended, guarding, mass, organolmegaly, rebound, tenderness Rectal exam: PRESENT: deferred Extremities exam: PRESENT: tenderness - RLE w/ passive range of motion; externally rotated. No ecchymosis. No tenderness with palpation.. ABSENT: calf tenderness, full ROM - RLE, pedal edema Neurological exam: PRESENT: alert, awake, oriented to person, CN II-XII grossly intact. ABSENT: motor sensory deficit Psychiatric exam: PRESENT: flat affect - withdrawn Skin exam: PRESENT: dry, intact, warm. ABSENT: cyanosis, rash Results Laboratory Results: 03/24/18 07:22 03/29/18 13:22 02/28/18 03/01/18 03/01/18 21:25 01:45 08:51 CK-MB (CK-2) Troponin I 0.069 0.063 0.068 03/04/18 03/04/18 03/04/18 11:43 15:30 20:48 CK-MB (CK-2) 2.03 Troponin I 0.055 0.048 0.044 03/05/18 03:10 CK-MB (CK-2) Troponin I 0.063 Impressions: Head CT 03/01/18 18:50 IMPRESSION: MILD CHRONIC CHANGES OF ATROPHY AND MICROVASCULAR ISCHEMIA. 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 NO ACUTE PROCESS. EVIDENCE OF ACUTE STROKE: NO. Abdomen/Pelvis CT 03/04/18 10:32 IMPRESSION: Small volume ascites. No additional evidence of acute intra- abdominal/pelvic process. KUB X-Ray 03/19/18 10:09 IMPRESSION: NASOGASTRIC TUBE IN THE STOMACH. NO RADIOGRAPHIC EVIDENCE FOR ACUTE ABDOMINAL DISEASE. Cervical Spine MRI 03/20/18 00:00 IMPRESSION: NORMAL MRI CERVICAL SPINE. Head MRI 03/20/18 00:00 IMPRESSION: ATROPHY AND CHRONIC MICRO-VASCULAR ISCHEMIC CHANGES. FOCAL AREAS OF ABNORMAL WHITE MATTER SIGNAL IN THE POSTERIOR RIGHT PARIETAL LOBE CORRESPONDING TO SIMILAR FINDINGS ON PRIOR CT, CONSISTENT WITH OLD INFARCT. NO ACUTE FINDINGS. EVIDENCE OF ACUTE STROKE: NO. Chest X-Ray 03/27/18 00:00 IMPRESSION: 1. The tip of the feeding tube projects over the region of the distal stomach. 2. Mild volume loss in the left inferior hemithorax possibly due to a combination of pleural fluid, atelectasis or inflammatory changes. 3. Stable mild cardiomegaly and prior median sternotomy. Guidance Fluoroscopy 03/29/18 00:00 IMPRESSION: SUCCESSFUL PLACEMENT OF A 5 FR DUAL LUMEN 40 CM PICC IN THE LEFT BASILIC VEIN. Interventional Vascular Procedure 03/29/18 00:00 IMPRESSION: SUCCESSFUL PLACEMENT OF A 5 FR DUAL LUMEN 40 CM PICC IN THE LEFT BASILIC VEIN. PICC Line Insertion 03/29/18 00:00 IMPRESSION: SUCCESSFUL PLACEMENT OF A 5 FR DUAL LUMEN 40 CM PICC IN THE LEFT BASILIC VEIN. Assessment & Plan - Diagnosis (1) Acute encephalopathy Is this a current diagnosis for this admission?: Yes Plan: Plateaued; likely near baseline. A&O to self today, makes eye contact and follows movement around the room, was able to search optimization analyst on command. Intermittently answers questions. Unclear etiology; likely multifactorial secondary to hypernatremia, dehydration, hypertension, underlying mental health disorders (bipolar, schizoaffective disorder), and possibly hospital psychosis. Some concern for infection; wound culture and urine culture match, low-grade temperature. Head CT (03/01/18) mild chronic changes of atrophy with microvascular ischemia and an old right parietal infarct but no acute processes. 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 Urinalysis revealed urinary tract infection Depakote level low; now receiving via NG tube AM cortisol level acceptable. HIV negative Hepatitis panel is negative RPR negative Will provide for patient safety; fall, aspiration precautions. Supportive care. Now with PEG for nutrition support. Will treat bacteremia; cefazolin 2 g every 8 hours per ID through April 04. Psychiatric team re-consulted; the patient's reduced mental status likely related to an acute infectious process in the setting of early onset dementia (reference MRI results demonstrating atrophy and chronic microvascular changes/CVA). (2) Ischemic cardiomyopathy EF 30% Is this a current diagnosis for this admission?: Yes Plan: Echocardiogram revealed LVEF of 30% with severe global hypokinesis of the left ventricle, paradoxical septal wall motion consistent with right ventricular volume overload. She appears compensated without exacerbation at this time. We will continue medication regiment; lisinopril, metoprolol, daily aspirin, atorvastatin (3) HTN (hypertension) Qualifiers: Hypertension type: essential hypertension Qualified Code(s): I10 - E ssential (primary) hypertension Is this a current diagnosis for this admission?: Yes Plan: Normotensive today. Continue lisinopril 5 mg daily and metoprolol 12.5 mg twice daily. Continue clonidine 0.1 mg/24hr transdermal patch. (4) Bipolar 1 disorder, depressed Is this a current diagnosis for this admission?: Yes Plan: Subtherapeutic (03/27/2018) Depakote increased to 500 mg twice daily. (5) Urine retention Is this a current diagnosis for this admission?: Yes Plan: Pt with bladder distention on exam; bladder scan demonstrated >999 mL. Urinalysis positive for UTI. Bladder scan every 6 hours; continues to have urinary retention. Osorio catheter placed. Started on Flomax daily. Recommend urology follow-up in 3 weeks. (6) UTI (urinary tract infection) Qualifiers: Urinary tract infection type: acute cystitis Hematuria presence: with hematuria Qualified Code(s): N30.01 - Acute cystitis with hematuria Is this a current diagnosis for this admission?: Yes Plan: Urinalysis positive for UTI. Urine culture shows staph aureus. Blood cultures shows staph aureus. Initially treated with vancomycin and Zosyn; transitioned to cefazolin once sensitivities were available. UTI has been adequately treated, however, continues on ceftezole and for tez teremia. (7) Bacteremia Is this a current diagnosis for this admission?: Yes Plan: MSSA identified in blood cultures 03/18/2018. Repeat blood cultures have no growth (03/21/2018). Infectious disease was consulted; recommends continuing cefazolin 2 g every 8 hours through April 04. PICC line was placed yesterday. ID also recommends repeating echocardiogram to assess for vegetations. Limited study obtained yesterday, results pending. If study is suboptimal or suggestive of vegetations will require IDALMIS to determine full course of therapy. (8) Hypernatremia Is this a current diagnosis for this admission?: Yes Plan: Resolved; 139.0 today. Have ordered tube feeds with free water flushes every hourly (reference registered veterinary technician's note). grades 9 thru 12 visiting teacher is consulted. Previously spoke with Dr. Hadley; does not feel that there is an additional wor kup needed for hypernatremia/KIRSTEN. Confirms that the patient's current hyponatremia would not cause her decreased mental status. (9) Hypokalemia Is this a current diagnosis for this admission?: Yes Plan: Replete; secondary to poor p.o. intake. Continue daily potassium supplement. Now receiving enteral nutrition via tube feeds. Serial chemistries. (10) Somnolence Is this a current diagnosis for this admission?: Yes Plan: Resolved; patient now is awake. Intermittently answering simple questions and following one-step simple commands. TSH normal. AM cortisol is acceptable. Continue to monitor. Remaining work up as above. (11) Dehydration Is this a current diagnosis for this admission?: Yes Plan: Resolved. Secondary to poor p.o. intake and evidenced by hypernatremia and KIRSTEN. Tube feeds and free water flushes. Continue to encourage p.o. fluids with 1:1 supervision. (12) Musculoskeletal pain of right lower extremity Is this a current diagnosis for this admission?: Yes Plan: The patient refuses to extend her right lower extremity; she keeps the extremity flexed and externally rotated. She is noted to grimace with passive range of motion, no noted pain with palpation. No ecchymosis or known trauma. Will obtain x-rays. - Time Time Spent with patient: 15-24 minutes Anticipated discharge: SNF Within: Other - pending echo results to determine length of abx therapy
--- NOTE | 2018-03-30 17:16 | RADIOLOGY REPORT (SQ) ---
EXAM DESCRIPTION: HIP RIGHT AP/LATERAL COMPLETED DATE/TIME: 03/30/2018 5:00 pm REASON FOR STUDY: pain, externally rotated. No known injury. R44.3 HALLUCINATIONS, UNSPECIFIED F32 .9 MAJOR DEPRESSIVE DISORDER, SINGLE EPISODE, UNSPECIFIED F20.9 SCHIZOPHRENIA, UNSPECIFIED COMPARISON: None. NUMBER OF VIEWS: Two views. TECHNIQUE: AP pelvis and additional frog-leg view of the right hip. LIMITATIONS: None. FINDINGS: MINERALIZATION: Normal. RIGHT HIP: No fracture or dislocation. No worrisome bone lesions. LEFT HIP: No fracture or dislocation. No worrisome bone lesions. PUBIS AND ISCHIUM: No fracture. PELVIS: No fracture. SACRUM: No fracture or dislocation. No worrisome bone lesions. LOWER LUMBAR SPINE: No fracture or dislocation. No worrisome bone lesions. No significant disc disea se. SOFT TISSUES: No findings. OTHER: No other significant finding. IMPRESSION: NEGATIVE STUDY OF THE RIGHT HIP. NO RADIOGRAPHIC EVIDENCE OF ACUTE INJURY. TECHNICAL DOCUMENTATION: JOB ID: [id number] [employer]- All Rights Reserved Reading location - IP/workstation name: [email or web address]
[2018-03-30] MEDS: TAMSULOSIN HCL 0.4 MG CAP.SR.24H PO SCH (17:18)
[2018-03-30] MEDS: ACETAMINOPHEN SOLN 325 MG/10.15 ML UDCUP NG PRN (17:18)
[2018-03-30] MEDS: CLONAZEPAM 1 MG TABLET PO PRN (17:18)
[2018-03-30] MEDS: ATORVASTATIN CALCIUM 20 MG TABLET NG SCH (22:42)
[2018-03-30] MEDS: ASPIRIN 81 MG TABLET, CHEWABLE NG SCH (22:42)
--- NOTE | 2018-03-31 00:36 | XCELERA REPORT ---
[address] [address] Transthoracic Echocardiogram Report Name: CHARLEY SHERMAN Age: 57 yrs Gender: Female : 1960 Patient Status: Inpatient Patient Location: [address] [place], [place] [id number] Study Date: 03/29/2018 03:31 PM Height: 66 in Weight: 166 lb BSA: 1.8 m2 Procedure: A limited two-dimensional transthoracic echocardiogram was performed (2D). Study Quality: Good. Reason For Study: bacteremia : Limited echo for vegetations. History: bacteremia : Limited echo for vegetations. Ordering Physician: JEFF BONE Performed By: Alejandra Marshall Interpretation Summary No vegetations seen on the Aortic,Mitral,Tricuspid and pulmonic valves. MMode/2D Measurements & Calculations RVDd: 3.2 cm LVIDd: 4.6 cm FS: 32.9 % Ao root diam: 2.1 cm IVSd: 1.0 cm LVIDs: 3.1 cm EDV(Teich): 95.4 ml Ao root area: 3.3 cm2 LVPWd: 1.0 cm ESV(Teich): 36.7 ml LA dimension: 3.8 cm EF(Teich): 61.5 % Doppler Measurements & Calculations PI end-d linwood: 99.9 cm/sec TR max linwood: 235.6 cm/sec TR max P.2 mmHg : JEFF BONE > Smita Luque
[2018-03-31] MEDS: NORMAL SALINE 1000 ML 1,000 ML IV PRN ×2 (04:30→16:12)
[2018-03-31] MEDS: VALPROATE SODIUM SYRUP 250 MG/5 ML UDCUP PO SCH ×2 (06:13→17:49)
[2018-03-31] MEDS: FAMOTIDINE 20 MG TABLET NG SCH ×2 (09:15→22:36)
[2018-03-31] MEDS: POTASSIUM CHLORIDE 20 MEQ/15 ML UDCUP PO SCH (09:15)
[2018-03-31] MEDS: METOPROLOL TARTRATE 25 MG TABLET NG SCH ×2 (09:15→22:36)
[2018-03-31] MEDS: LISINOPRIL 5 MG TABLET NG SCH (09:16)
[2018-03-31] MEDS: ENOXAPARIN SODIUM INJ 40 MG/0.4 ML DISP.SYRIN SUBCUT SCH (09:17)
[2018-03-31] MEDS: NORMAL SALINE 10 ML SDV (SCHEDULED) IV SCH ×2 (09:36→22:38)
[2018-03-31] MEDS: MULTIVITAMIN ORAL LIQUID 60 ML NG SCH (11:00)
--- NOTE | 2018-03-31 14:14 | PDOC DISCHARGE SUMMARY ---
Addendum entered and electronically signed by NORMA MARIE NP 04/06/18 14:12: Provider Note Provider Note: ADDENDUM: NO CHANGE TO DISCHARGE PLAN. UPDATED DISCHARGE DATE: 04/06/2018 Original Note: General - Admit/Disc Date/PCP Admission Date/Primary Care Provider: 03/14/18 13:53 TREVON SKAGGS PA-C Discharge Date: 03/31/18 - Discharge Diagnosis (1) Acute encephalopathy Is this a current diagnosis for this admission?: Yes Summary: Likely at new baseline. A&O to self today, makes eye contact and follows movement around the room, was able to crane man on command. Intermittently answers questions. Likely multifactorial secondary to dementia, previous CVAs, underlying mental health disorders (bipolar, schizoaffective disorder), recent infectious process (completing antibiotic course), and possibly hospital psychosis. Head CT (03/01/18) mild chronic changes of atrophy with microvascular ischemia and an old right parietal infarct but no acute processes. 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 Urinalysis revealed urinary tract infection Depakote level low; now receiving via NG tube AM cortisol level acceptable. HIV negative Hepatitis panel is negative RPR negative The patient had an extensive workup for acute encephalopathy as described above. Psychiatric team was consulted on multiple occasions; have stated that the feel the patient is demonstrating early onset dementia secondary to previous CVA and atrophy with chronic microvascular ischemic changes noted on recent MRI. She was provided supportive care and now has a PEG tube for nutritional support. Patient was found to be bacteremic; infectious disease was consulted with recommendations for cefazolin 2 g every 8 hours per ID through April 04. Recommend continued palliative care with likely hospice bridge at some point in the near future. (2) Ischemic cardiomyopathy EF 30% Is this a current diagnosis for this admission?: Yes Summary: Echocardiogram revealed LVEF of 30% with severe global hypokinesis of the left ventricle, paradoxical septal wall motion consistent with right ventricular volume overload. She appears compensated without exacerbation at this time. We will continue medication regiment; lisinopril, metoprolol, daily aspirin, atorvastatin Recommend cardiology follow-up in 4-6 weeks. (3) HTN (hypertension) Is this a current diagnosis for this admission?: Yes Summary: Normotensive at present. Continue lisinopril 5 mg daily and metoprolol 12.5 mg twice daily. Continue clonidine 0.1 mg/24hr transdermal patch. (4) Bipolar 1 disorder, depressed Is this a current diagnosis for this admission?: Yes Summary: Subtherapeutic (03/27/2018) Depakote increased to 500 mg twice daily. Recommend repeat Depakote level in 2 weeks. (5) Urine retention Is this a current diagnosis for this admission?: Yes Summary: Pt with bladder distention on exam; bladder scan demonstrated >999 mL. Urinalysis positive for UTI; has received appropriate length of antibiotic therapy. Bladder scan every 6 hours revealed persistent urinary retention. Osorio catheter placed. Started on Flomax daily. Recommend urology follow-up in 3 weeks. (6) UTI (urinary tract infection) Is this a current diagnosis for this admission?: Yes Summary: Urinalysis positive for UTI. Urine culture shows staph aureus. Blood cultures shows staph aureus. Initially treated with vancomycin and Zosyn; transitioned to cefazolin once sensitivities were available. UTI has been adequately treated, however, continues on ceftezole and for bacteremia. (7) Bacteremia Is this a current diagnosis for this admission?: Yes Summary: MSSA identified in blood cultures 03/18/2018. Repeat blood cultures have no growth (03/21/2018). Limited echocardiogram was negative for valvular vegetations. PICC line has been placed. Infectious disease was consulted; recommends continuing cefazolin 2 g every 8 hours through April 04. (8) Hypernatremia Is this a current diagnosis for this admission?: Yes Summary: Resolved. Continue tube feedings with free water flushes hourly. With the registered dietitian and employee counselor were consulted for management of the patient's persistent hyponatremia. (9) Hypokalemia Is this a current diagnosis for this admission?: Yes Summary: Replete; secondary to poor p.o. intake. Continue daily potassium supplement. Now receiving enteral nutrition via tube feeds. (10) Somnolence Is this a current diagnosis for this admission?: Yes Summary: Resolved; patient now is awake. Intermittently answering simple questions and following one-step simple commands. TSH normal. AM cortisol is acceptable. (11) Dehydration Is this a current diagnosis for this admission?: Yes Summary: Resolved. Secondary to poor p.o. intake and evidenced by hypernatremia and KIRSTEN. Tube feeds and free water flushes. Continue to encourage p.o. fluids with 1:1 supervision. (12) Musculoskeletal pain of right lower extremity Is this a current diagnosis for this admission?: Yes Summary: The patient refuses to extend her right lower extremity; she keeps the extremity flexed and externally rotated. She is noted to grimace with passive range of motion, no noted pain with palpation. No ecchymosis or known trauma. 2 view hip imaging was benign. Analgesics as needed. Orthopedic follow-up at discretion of SNF provider. - Additional Information Resuscitation Status: Full Code Discharge Diet: Tube Feeding (Comments) - glucerna 1.2 at 55 ml/hr continuously with 30 ml water flushes hourly Discharge Activity: Activity As Tolerated, Balance Activity w/Rest, Slowly Increase Activity, Supervised Activity, Weigh Daily Prescriptions: Atorvastatin Calcium [Lipitor 20 mg Tablet] 20 mg NG QHS #30 tablet Cefazolin Sodium [Ancef Inj 1 gm Vial] 2 gm IV Q8 #20 vial Clonazepam [Klonopin 1 mg Tablet] 0.5 mg PO Q12HP PRN #6 tablet PRN Reason: Clonidine [Catapres-Tts 1 (0.1 mg/24 Hr) Transderm Patch] 1 each TD Tu@10 #30 patch.tdwk Famotidine [Pepcid 20 mg Tablet] 20 mg NG Q12 #60 tablet Heparin Sodium,Porcine [Heparin Flush 10 Unit/ml 5 ml Disp.syrg] 30 unit IV .AFTER EACH USE PRN #12 disp.syrin PRN Reason: Heparin Sodium,Porcine [Heparin Flush 10 Unit/ml 5 ml Disp.syrg] 30 unit IV Q12 #10 disp.syrin Insulin Lispro [Humalog Insulin (Lispro) 100 unit/mL] 0 - 12 unit SUBCUT Q6HP PRN #1 vial PRN Reason: Insulin Lispro [Humalog Insulin (Lispro) 100 unit/mL] 0 - 12 unit SUBCUT ACHS #1 vial Ipratropium/Albuterol Sulfate [Duoneb 3 ml Ampul] 3 ml NEB RTQ6HP PRN #120 vial.neb PRN Reason: Lisinopril [Prinivil 5 mg Tablet] 5 mg NG DAILY #30 tablet Metoprolol Tartrate [Lopressor 25 mg Tablet] 12.5 mg NG Q12 #30 tablet Multivitamin [Multiple Vitamin Liquid 60 ml] 5 ml NG DAILY #120 ml Normal Saline [NaCl 0.9% Inj/Pf 10 ml Sdv] 10 ml IV .AFTER EACH USE PRN #12 vial PRN Reason: Normal Saline [NaCl 0.9% Inj/Pf 10 ml Sdv] 10 ml IV Q12 #10 vial Potassium Chloride [Kaon-Cl 20 Meq/15 ml Udcup] 20 meq PO DAILY #30 udc Tamsulosin HCl [Flomax 0.4 mg Cap.sr] 0.4 mg PO PCSUPPER #30 cap.sr.24h Valproate Sodium [Depakene Syrup 250 mg/5 ml Udcup] 500 mg PO Q12A #30 udc Home Medications: Polyethylene Glycol 3350 [Miralax Powder 17 gm/Packet] 17 gm PO DAILY 03/02/18 Acetaminophen [Tylenol Soln 325 mg/10.15 ml Udcup] 650 mg NG Q6HP PRN udc 03/29/18 Aspirin [Aspirin 81 mg Chewable Tablet] 81 mg NG QHS tab.chew 03/29/18 Atorvastatin Calcium [Lipitor 20 mg Tablet] 20 mg NG QHS #30 tablet 03/29/18 Cefazolin Sodium [Ancef Inj 1 gm Vial] 2 gm IV Q8 #20 vial 03/29/18 Clonidine [Catapres-Tts 1 (0.1 mg/24 Hr) Transderm Patch] 1 each TD Tu@10 #30 patch.tdwk 03/29/18 Famotidine [Pepcid 20 mg Tablet] 20 mg NG Q12 #60 tablet 03/29/18 Insulin Lispro [Humalog Insulin (Lispro) 100 unit/mL] 0 - 12 unit SUBCUT ACHS #1 vial 03/29/18 Ipratropium/Albuterol Sulfate [Duoneb 3 ml Ampul] 3 ml NEB RTQ6HP PRN #120 vial.neb 03/29/18 Lisinopril [Prinivil 5 mg Tablet] 5 mg NG DAILY #30 tablet 03/29/18 Metoprolol Tartrate [Lopressor 25 mg Tablet] 12.5 mg NG Q12 #30 tablet 03/29/18 Multivitamin [Multiple Vitamin Liquid 60 ml] 5 ml NG DAILY #120 ml 03/29/18 Potassium Chloride [Kaon-Cl 20 Meq/15 ml Udcup] 20 meq PO DAILY #30 udc 03/29/18 Tamsulosin HCl [Flomax 0.4 mg Cap.sr] 0.4 mg PO PCSUPPER #30 cap.sr.24h 03/29/18 Valproate Sodium [Depakene Syrup 250 mg/5 ml Udcup] 500 mg PO Q12A #30 udc 03/29/18 Clonazepam [Klonopin 1 mg Tablet] 0.5 mg PO Q12HP PRN #6 tablet 03/31/18 Heparin Sodium,Porcine [Heparin Flush 10 Unit/ml 5 ml Disp.syrg] 30 unit IV .AFTER EACH USE PRN #12 disp.syrin 03/31/18 Heparin Sodium,Porcine [Heparin Flush 10 Unit/ml 5 ml Disp.syrg] 30 unit IV Q12 #10 disp.syrin 03/31/18 Insulin Lispro [Humalog Insulin (Lispro) 100 unit/mL] 0 - 12 unit SUBCUT Q6HP PRN #1 vial 03/31/18 Normal Saline [NaCl 0.9% Inj/Pf 10 ml Sdv] 10 ml IV .AFTER EACH USE PRN #12 vial 03/31/18 Normal Saline [NaCl 0.9% Inj/Pf 10 ml Sdv] 10 ml IV Q12 #10 vial 03/31/18 History of Present Illness History of Present Illness: H&P: CHARLEY SHERMAN is a 57 year old female patient with past medical history of schizoaffective disorder, hypertension, type 2 diabetes mellitus, hyperlipidemia bipolar disorder, dementia, coronary artery disease status post coronary artery bypass graft, COPD and medical noncompliance brought by family members with chief complaint of altered mental status and hallucination. Since patient has cognitive impairment she is not able to give any meaningful history. Brief history is obtained from ER attending note and medical records. Per ER attending note, patient is hearing voices that tell her she is going to and seeing animals that are not there. Her blood works are unremarkable except an episode of hypokalemia which is corrected. Of note patient has been at ER for the last 6 days. Psych consultation was made and they stated "patient is psychiatrically clear from acute psychiatric services as she is no longer at risk of harm to self or others". Patient reports this her primary concern as falling frequently. Due to her schizophrenia and dementia patient is not able to care for herself per patient and her family as she is falling frequently, does not take her medication as directed resulting in frequent psychotic episodes and is not eating regularly/losing weight. This morning patient reevaluated by Dr. Gonzáles and patient complaints chest pain and her troponin fi rst test increased to 0.055. The hospitalist service requested to admit this patient. Physical Exam Vital Signs: Temp Pulse Resp BP Pulse Ox 98.3 F 70 16 139/80 H 96 03/31/18 11:10 03/31/18 11:10 03/31/18 11:10 03/31/18 11:10 03/31/18 11:10 Intake & Output 03/30/18 03/31/18 04/01/18 06:59 06:59 06:59 Intake Total 3840 5513 Output Total 500 600 Balance 3340 4913 Weight 77.5 kg 80.3 kg General appearance: PRESENT: no acute distress, well-developed, well-nourished Head exam: PRESENT: atraumatic, normocephalic Eye exam: PRESENT: conjunctiva pink, EOMI, PERRLA. ABSENT: scleral icterus Ear exam: PRESENT: normal external ear exam Mouth exam: PRESENT: moist, tongue midline Teeth exam: PRESENT: poor dentation Neck exam: ABSENT: carotid bruit, JVD, lymphadenopathy, thyromegaly Respiratory exam: PRESENT: clear to auscultation ailyn, symmetrical, unlabored. ABSENT: rales, rhonchi, wheezes Cardiovascular exam: PRESENT: RRR, +S1, +S2. ABSENT: diastolic murmur, rubs, systolic murmur Pulses: PRESENT: normal dorsalis pedis pul Vascular exam: PRESENT: normal capillary refill GI/Abdominal exam: PRESENT: normal bowel sounds, soft, other - PEG tube. ABSENT: distended, guarding, mass, organolmegaly, rebound, tenderness Rectal exam: PRESENT: deferred Extremities exam: PRESENT: full ROM, tenderness - RLE with extension. ABSENT: calf tenderness, clubbing, pedal edema Neurological exam: PRESENT: alert, awake, oriented to person, CN II-XII grossly intact. ABSENT: motor sensory deficit Psychiatric exam: PRESENT: flat affect Skin exam: PRESENT: dry, intact, warm. ABSENT: cyanosis, rash Results Laboratory Results: 03/24/18 07:22 03/29/18 13:22 1203/01/18 03/01/18 21:25 01:45 08:51 CK-MB (CK-2) Troponin I 0.069 0.063 0.068 03/04/18 03/04/18 03/04/18 11:43 15:30 20:48 CK-MB (CK-2) 2.03 Troponin I 0.055 0.048 0.044 03/05/18 03:10 CK-MB (CK-2) Troponin I 0.063 Impressions: Head CT 03/01/18 18:50 IMPRESSION: MILD CHRONIC CHANGES OF ATROPHY AND MICROVASCULAR ISCHEMIA. 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 NO ACUTE PROCESS. EVIDENCE OF ACUTE STROKE: NO. Abdomen/Pelvis CT 03/04/18 10:32 IMPRESSION: Small volume ascites. No additional evidence of acute intra- abdominal/pelvic process. KUB X-Ray 03/19/18 10:09 IMPRESSION: NASOGASTRIC TUBE IN THE STOMACH. NO RADIOGRAPHIC EVIDENCE FOR ACUTE ABDOMINAL DISEASE. Cervical Spine MRI 03/20/18 00:00 IMPRESSION: NORMAL MRI CERVICAL SPINE. Head MRI 03/20/18 00:00 IMPRESSION: ATROPHY AND CHRONIC MICRO-VASCULAR ISCHEMIC CHANGES. FOCAL AREAS OF ABNORMAL WHITE MATTER SIGNAL IN THE POSTERIOR RIGHT PARIETAL LOBE CORRESPONDING TO SIMILAR FINDINGS ON PRIOR CT, CONSISTENT WITH OLD INFARCT. NO ACUTE FINDINGS. EVIDENCE OF ACUTE STROKE: NO. Chest X-Ray 03/27/18 00:00 IMPRESSION: 1. The tip of the feeding tube projects over the region of the distal stomach. 2. Mild volume loss in the left inferior hemithorax possibly due to a combination of pleural fluid, atelectasis or inflammatory changes. 3. Stable mild cardiomegaly and prior median sternotomy. Guidance Fluoroscopy 03/29/18 00:00 IMPRESSION: SUCCESSFUL PLACEMENT OF A 5 FR DUAL LUMEN 40 CM PICC IN THE LEFT BASILIC VEIN. Interventional Vascular Procedure 03/29/18 00:00 IMPRESSION: SUCCESSFUL PLACEMENT OF A 5 FR DUAL LUMEN 40 CM PICC IN THE LEFT BASILIC VEIN. PICC Line Insertion 03/29/18 00:00 IMPRESSION: SUCCESSFUL PLACEMENT OF A 5 FR DUAL LUMEN 40 CM PICC IN THE LEFT BASILIC VEIN. Hip/Pelvis X-Ray 03/30/18 00:00 IMPRESSION: NEGATIVE STUDY OF THE RIGHT HIP. NO RADIOGRAPHIC EVIDENCE OF ACUTE INJURY. Qualifiers - * PATIENT BEING DISCHARGED WITH ANY OF THE FOLLOWING DIAGNOSIS: Heart Failure HF Pt being discharged on ACEI for LVEF less than 40%?: Yes HF Pt being discharged on [facility]BS for LVEF less than 40%?: No Reason(s) for not prescribing ARBS:: Medical Contraindication - one lisinopril HF Pt with Afib discharged with Warfarin?: No Reason(s) for not prescribing Warfarin:: Not indicated - Not in afib HF Pt discharged on evidence-based Beta Mila:: Yes
[2018-03-31] MEDS: TAMSULOSIN HCL 0.4 MG CAP.SR.24H PO SCH (18:00)
[2018-03-31] MEDS: ATORVASTATIN CALCIUM 20 MG TABLET NG SCH (22:36)
[2018-03-31] MEDS: ACETAMINOPHEN SOLN 325 MG/10.15 ML UDCUP NG PRN (22:36)
[2018-03-31] MEDS: ASPIRIN 81 MG TABLET, CHEWABLE NG SCH (22:36)
[2018-03-31] MEDS: CLONAZEPAM 1 MG TABLET PO PRN (23:18)
[2018-04-01] MEDS: NORMAL SALINE 1000 ML 1,000 ML IV PRN ×3 (02:22→21:20)
[2018-04-01] MEDS: VALPROATE SODIUM SYRUP 250 MG/5 ML UDCUP PO SCH ×2 (06:01→17:10)
[2018-04-01] MEDS: METOPROLOL TARTRATE 25 MG TABLET NG SCH ×2 (10:12→21:01)
[2018-04-01] MEDS: POTASSIUM CHLORIDE 20 MEQ/15 ML UDCUP PO SCH (10:12)
[2018-04-01] MEDS: MULTIVITAMIN ORAL LIQUID 60 ML NG SCH (10:13)
[2018-04-01] MEDS: ENOXAPARIN SODIUM INJ 40 MG/0.4 ML DISP.SYRIN SUBCUT SCH (10:13)
[2018-04-01] MEDS: FAMOTIDINE 20 MG TABLET NG SCH ×2 (10:14→21:01)
[2018-04-01] MEDS: NORMAL SALINE 10 ML SDV (SCHEDULED) IV SCH ×2 (10:14→21:01)
[2018-04-01] MEDS: LISINOPRIL 5 MG TABLET NG SCH (10:14)
[2018-04-01 11:08] LABS: ABSOLUTE EOSINOPHILS # (AUTO) 0.1 10^3/uL (0.0-0.6); ABSOLUTE LYMPHOCYTES (AUTO) 1.4 10^3/uL (0.5-4.7); ABSOLUTE MONOCYTES (AUTO) 0.7 10^3/uL (0.1-1.4); ABSOLUTE NEUT (AUTO) 3.7 10^3/uL (1.7-8.2); BASOPHILS % (AUTO) 0.4 % (0-2); EOSINOPHILS % (AUTO) 1.6 % (0-6); HEMATOCRIT 30.7 % (36.0-47.0); LYMPHOCYTES % (AUTO) 23.3 % (13-45); MEAN CORPUSCULAR HEMOGLOBIN 25.8 pg (27.0-33.4); MEAN CORPUSCULAR HGB CONC 32.6 g/dL (32.0-36.0); MEAN CORPUSCULAR VOLUME 79 fl (80-97); MONOCYTES % (AUTO) 12.3 % (3-13); PLATELET COUNT 280 10^3/uL (150-450); RED BLOOD COUNT 3.87 10^6/uL (3.72-5.28); RED CELL DISTRIBUTION WIDTH 24.6 % (11.5-14.0); SEGMENTED NEUTROPHILS % (AUTO) 62.4 % (42-78); TOTAL CELLS COUNTED % (AUTO) 100 %; WHITE BLOOD COUNT 5.9 10^3/uL (4.0-10.5)
[2018-04-01 11:23] LABS: ALANINE AMINOTRANSFERASE 14 U/L (9-52); ALBUMIN 2.4 g/dL (3.5-5.0); ALKALINE PHOSPHATASE 166 U/L (38-126); ANION GAP 5 (5-19); ASPARTATE AMINO TRANSFERASE 23 U/L (14-36); BILIRUBIN,DIRECT 0.4 mg/dL (0.0-0.4); BILIRUBIN,TOTAL 0.6 mg/dL (0.2-1.3); BLOOD UREA NITROGEN 13 mg/dL (7-20); C-REACTIVE PROTEIN 39.1 mg/L (<10.0); CALCIUM 8.4 mg/dL (8.4-10.2); CARBON DIOXIDE 28 mmol/L (22-30); CHLORIDE 104 mmol/L (98-107); GLUCOSE 143 mg/dL (75-110); POTASSIUM 4.6 mmol/L (3.6-5.0); SODIUM 137.1 mmol/L (137-145)
[2018-04-01 12:01] LABS: ANISOCYTOSIS 3+; HYPOCHROMASIA SLIGHT; POLYCHROMASIA SLIGHT; TARGET CELLS 1+
[2018-04-01 12:02] LABS: PLATELET COMMENT ADEQUATE
[2018-04-01 12:05] LABS: ERYTHROCYTE SEDIMENTATION RATE 72 mm/hr (0-30)
--- NOTE | 2018-04-01 13:35 | RADIOLOGY REPORT (SQ) ---
EXAM DESCRIPTION: CT ABD/PELVIS NO ORAL OR IV COMPLETED DATE/TIME: 04/01/2018 1:23 pm REASON FOR STUDY: elevated LFTs, bacteremia, ? abscess R44.3 HALLUCINATIONS, UNSPECIFIED F32.9 RADHA OR DEPRESSIVE DISORDER, SINGLE EPISODE, UNSPECIFIED F20.9 SCHIZOPHRENIA, UNSPECIFIED COMPARISON: 03/04/2018 TECHNIQUE: CT scan of the abdomen and pelvis performed without intravenous or oral contrast. Images reviewed with lung, soft tissue, and bone windows. Reconstructed coronal and sagittal MPR images revi ewed. All images stored on PACS. All CT scanners at this facility use dose modulation, iterative reconstruction, and/or weight based d osing when appropriate to reduce radiation dose to as low as reasonably achievable (ALARA). [facility]: Dose Right [facility]: CareDose [facility]: Dose Right [facility]: Teradose 4D [facility]: Smart Sparkroom RADIATION DOSE: CT Rad equipment meets quality standard of care and radiation dose reduction techniq ues were employed. CTDIvol: 17.2 mGy. DLP: 936 mGy-cm.mGy. LIMITATIONS: None. FINDINGS: LOWER CHEST: Since prior study the patient has developed a moderate size left pleural effu peter there is a small right effusion. There is left lower lobe atelectasis or pneumonia. NON-CONTRASTED LIVER, SPLEEN, ADRENALS: No focal hepatic splenic lesions. No adrenal masses. There is small volume ascites. PANCREAS: No masses. No peripancreatic inflammatory changes. GALLBLADDER: Surgically absent. RIGHT KIDNEY AND URETER: No suspicious masses. Assessment limited by lack of IV contrast. No signif icant calcifications. No hydronephrosis or hydroureter. LEFT KIDNEY AND URETER: No suspicious masses. Assessment limited by lack of IV contrast. No signifi cant calcifications. No hydronephrosis or hydroureter. AORTA AND RETROPERITONEUM: No aneurysm. No retroperitoneal masses or adenopathy. BOWEL AND PERITONEAL CAVITY: Gastric tube is in place. No evidence of obstruction. No bowel wall th ickening. APPENDIX: Not visualized. PELVIS, BLADDER, AND ABDOMINAL WALL:There is free fluid the pelvis. There is subcutaneous edema. BONES: No significant findings. OTHER: No other significant finding. IMPRESSION: 1. Small volume ascites not significantly changed from prior study. 2. Moderate left pleural effusion and small right pleural effusion new from prior study. Minimal le ft basilar atelectasis. 3. Diffuse subcutaneous edema. 4. G-tube has been added since prior study and appears to be in satisfactory position. COMMENT: Quality ID # [id number]: Final reports with documentation of one or more dose reduction techniques (e.g., Automated exposure control, adjustment of the mA and/or kV according to patient size, use of iterative reconstruction technique) TECHNICAL DOCUMENTATION: JOB ID: [id number] [employer]- All Rights Reserved Reading location - IP/workstation name: [email or web address]
--- NOTE | 2018-04-01 16:42 | PDOC PROGRESS REPORT ---
<JEFF BONE - Last Filed: 04/01/18 16:27> Subjective Progress Note for:: 04/01/18 Subjective:: The patient is a 57-year-old female with a past medical history of CAD, AR x2, hypertension, hyperlipidemia, COPD, DM 2, GERD, bipolar, depression, schizoaffective disorder who initially presented to the emergency department on 02/26/18 with a psychiatric complaint and spent 6 days on psych hold in the emergency department pending placement. Patient then began complaining of chest discomfort and so was referred to the hospitalist service for admission and management on 03/04/18. Cardiac workup revealed LVEF 30%. The patient was seen on morning rounds. She is found resting in bed comfortably on room air. She was awake and alert; but not answering questions or following commands today. She does appear to be resting comfortably and is not noted to be in any acute distress. ROS is limited secondary to altered mental status. No concerns per nursing. Reason For Visit: HYPERNATREMIA, URINARY RETENTION Physical Exam Vital Signs: Temp Pulse Resp BP Pulse Ox 98.6 F 70 24 H 134/77 H 99 04/01/18 11:57 04/01/18 14:00 04/01/18 11:57 04/01/18 11:57 04/01/18 11:57 Intake & Output 03/31/18 04/01/18 04/02/18 06:59 06:59 06:59 Intake Total 5513 4014 1531 Output Total 600 1400 600 Balance 4913 2614 931 Weight 80.3 kg 80.6 kg General appearance: PRESENT: no acute distress, well-developed, well-nourished Head exam: PRESENT: atraumatic, normocephalic Eye exam: PRESENT: conjunctiva pink, EOMI, PERRLA. ABSENT: scleral icterus Ear exam: PRESENT: normal external ear exam Mouth exam: PRESENT: moist, tongue midline Teeth exam: PRESENT: poor dentation Neck exam: ABSENT: carotid bruit, JVD, lymphadenopathy, thyromegaly Respiratory exam: PRESENT: clear to auscultation ailyn, symmetrical, unlabored. ABSENT: rales, rhonchi, wheezes Cardiovascular exam: PRESENT: RRR, +S1, +S2. ABSENT: diastolic murmur, rubs, systolic murmur Pulses: PRESENT: normal dorsalis pedis pul Vascular exam: PRESENT: normal capillary refill GI/Abdominal exam: PRESENT: normal bowel sounds, soft, other - PEG tube. ABSENT: distended, guarding, mass, organolmegaly, rebound, tenderness Rectal exam: PRESENT: deferred Extremities exam: PRESENT: full ROM, tenderness - RLE with extension. ABSENT: calf tenderness, clubbing, pedal edema Neurological exam: PRESENT: alert, altered, awake, CN II-XII grossly intact, other - Not following commands today. ABSENT: motor sensory deficit Psychiatric exam: PRESENT: flat affect - Withdrawn Skin exam: PRESENT: dry, intact, warm. ABSENT: cyanosis, rash Results Laboratory Results: 04/01/18 10:05 04/01/18 10:05 04/01/18 04/01/18 10:05 10:05 WBC 5.9 RBC 3.87 Hgb 10.0 L Hct 30.7 L MCV 79 L MCH 25.8 L MCHC 32.6 RDW 24.6 H Plt Count 280 Seg Neutrophils % 62.4 Lymphocytes % 23.3 Monocytes % 12.3 Eosinophils % 1.6 Basophils % 0.4 Absolute Neutrophils 3.7 Absolute Lymphocytes 1.4 Absolute Monocytes 0.7 Absolute Eosinophils 0.1 Absolute Basophils 0.0 Sodium 137.1 Potassium 4.6 Chloride 104 Carbon Dioxide 28 Anion Gap 5 BUN 13 Creatinine 0.48 L Est GFR ( Amer) > 60 Est GFR (Non-Af Amer) > 60 Glucose 143 H Calcium 8.4 Total Bilirubin 0.6 AST 23 ALT 14 Alkaline Phosphatase 166 H C-Reactive Protein 39.1 H Total Protein 6.0 L Albumin 2.4 L 02/28/18 03/01/18 03/01/18 21:25 01:45 08:51 CK-MB (CK-2) Troponin I 0.069 0.063 0.068 03/04/18 03/04/18 03/04/18 11:43 15:30 20:48 CK-MB (CK-2) 2.03 Troponin I 0.055 0.048 0.044 03/05/18 03:10 CK-MB (CK-2) Troponin I 0.063 Impressions: Head CT 03/01/18 18:50 IMPRESSION: MILD CHRONIC CHANGES OF ATROPHY AND MICROVASCULAR ISCHEMIA. 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 NO ACUTE PROCESS. EVIDENCE OF ACUTE STROKE: NO. KUB X-Ray 03/19/18 10:09 IMPRESSION: NASOGASTRIC TUBE IN THE STOMACH. NO RADIOGRAPHIC EVIDENCE FOR ACUTE ABDOMINAL DISEASE. Cervical Spine MRI 03/20/18 00:00 IMPRESSION: NORMAL MRI CERVICAL SPINE. Head MRI 03/20/18 00:00 IMPRESSION: ATROPHY AND CHRONIC MICRO-VASCULAR ISCHEMIC CHANGES. FOCAL AREAS OF ABNORMAL WHITE MATTER SIGNAL IN THE POSTERIOR RIGHT PARIETAL LOBE CORRESPONDING TO SIMILAR FINDINGS ON PRIOR CT, CONSISTENT WITH OLD INFARCT. NO ACUTE FINDINGS. EVIDENCE OF ACUTE STROKE: NO. Chest X-Ray 03/27/18 00:00 IMPRESSION: 1. The tip of the feeding tube projects over the region of the distal stomach. 2. Mild volume loss in the left inferior hemithorax possibly due to a combination of pleural fluid, atelectasis or inflammatory changes. 3. Stable mild cardiomegaly and prior median sternotomy. Guidance Fluoroscopy 03/29/18 00:00 IMPRESSION: SUCCESSFUL PLACEMENT OF A 5 FR DUAL LUMEN 40 CM PICC IN THE LEFT BASILIC VEIN. Interventional Vascular Procedure 03/29/18 00:00 IMPRESSION: SUCCESSFUL PLACEMENT OF A 5 FR DUAL LUMEN 40 CM PICC IN THE LEFT BASILIC VEIN. PICC Line Insertion 03/29/18 00:00 IMPRESSION: SUCCESSFUL PLACEMENT OF A 5 FR DUAL LUMEN 40 CM PICC IN THE LEFT BASILIC VEIN. Hip/Pelvis X-Ray 03/30/18 00:00 IMPRESSION: NEGATIVE STUDY OF THE RIGHT HIP. NO RADIOGRAPHIC EVIDENCE OF ACUTE INJURY. Abdomen/Pelvis CT 04/01/18 00:00 IMPRESSION: 1. Small volume ascites not significantly changed from prior study. 2. Moderate left pleural effusion and small right pleural effusion new from prior study. Minimal left basilar atelectasis. 3. Diffuse subcutaneous edema. 4. G-tube has been added since prior study and appears to be in satisfactory position. Assessment & Plan - Diagnosis (1) Acute encephalopathy Is this a current diagnosis for this admission?: Yes Plan: Plateaued; likely near baseline. Intermittently answers questions and follows commands. Unclear etiology; likely multifactorial secondary to hypernatremia, dehydration, hypertension, underlying mental health disorders (bipolar, schizoaffective disorder), and possibly hospital psychosis. Some concern for infection; wound culture and urine culture match, low-grade temperature. Head CT (03/01/18) mild chronic changes of atrophy with microvascular ischemia and an old right parietal infarct but no acute processes. 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 Urinalysis revealed urinary tract infection Depakote level low; now receiving via NG tube AM cortisol level acceptable. HIV negative Hepatitis panel is negative RPR negative LFTs remain negative (04/01/2018) Will provide for patient safety; fall, aspiration precautions. Supportive care. Now with PEG for nutrition support. Will treat bacteremia; cefazolin 2 g every 8 hours per ID through April 04. Psychiatric team re-consulted; the patient's reduced mental status likely related to an acute infectious process in the setting of early onset dementia (reference MRI results demonstrating atrophy and chronic microvascular changes/ CVA). (2) Ischemic cardiomyopathy EF 30% Is this a current diagnosis for this admission?: Yes Plan: Echocardiogram revealed LVEF of 30% with severe global hypokinesis of the left ventricle, paradoxical septal wall motion consistent with right ventricular volume overload. She appears compensated without exacerbation at this time. Patient's weight is noted to be up approximately 20 kg; lung sounds are clear no edema on exam. Does have bilateral pleural effusions incidentally found on CT of the abdomen and pelvis. We will start low-dose furosemide and monitor closely for fluid volume deficits. We will continue medication regiment; lisinopril, metoprolol, daily aspirin, atorvastatin (3) HTN (hypertension) Qualifiers: Hypertension type: essential hypertension Qualified Code(s): I10 - Essential (primary) hypertension Is this a current diagnosis for this admission?: Yes Plan: Normotensive today. Continue lisinopril 5 mg daily and metoprolol 12.5 mg twice daily. Continue clonidine 0.1 mg/24hr transdermal patch. Furosemide is above. (4) Bipolar 1 disorder, depressed Is this a current diagnosis for this admission?: Yes Plan: Subtherapeutic (03/27/2018) Depakote increased to 500 mg twice daily. (5) Urine retention Is this a current diagnosis for this admission?: Yes Plan: Pt with bladder distention on exam; bladder scan demonstrated >999 mL. Urinalysis positive for UTI. Bladder scan every 6 hours; continues to have urinary retention. Osorio catheter placed. Started on Flomax daily. Recommend urology follow-up in 3 weeks. (6) UTI (urinary tract infection) Qualifiers: Urinary tract infection type: acute cystitis Hematuria presence: with hematuria Qualified Code(s): N30.01 - Acute cystitis with hematuria Is this a current diagnosis for this admission?: Yes Plan: Urinalysis positive for UTI. Urine culture shows staph aureus. Blood cultures shows staph aureus. Initially treated with vancomycin and Zosyn; transitioned to cefazolin once sensitivities were available. UTI has been adequately treated, however, continues on ceftezole and for bacteremia. (7) Bacteremia Is this a current diagnosis for this admission?: Yes Plan: MSSA identified in blood cultures 03/18/2018. Repeat blood cultures have no growth (03/21/2018). CT of the abdomen and pelvis was negative for abdominal or pelvic abscess. CBC is unremarkable, sed rate and CRP are mildly elevated. However, patient did have a PICC line placed yesterday and a PEG tube placed 3 days prior. Infectious disease was consulted; recommends continuing cefazolin 2 g every 8 hours through April 04. PICC line was placed yesterday. ID also recommends repeating echocardiogram to assess for vegetations. Limited study obtained; negative for vegetations. (8) Hypernatremia Is this a current diagnosis for this admission?: Yes Plan: Resolved; 139.0 today. Have ordered tube feeds with free water flushes every hourly (reference sulfonation equipment operator's note). testing lead is consulted. Previously spoke with Dr. Hadley; does not feel that there is an additional workup needed for hypernatremia/KIRSTEN. Confirms that the patient's current hyponatremia would not cause her decreased mental status. (9) Hypokalemia Is this a current diagnosis for this admission?: Yes Plan: Replete; secondary to poor p.o. intake. Continue daily potassium supplement. Now receiving enteral nutrition via tube feeds. Serial chemistries. (10) Somnolence Is this a current diagnosis for this admission?: Yes Plan: Resolved; patient now is awake. Intermittently answering simple questions and following one-step simple commands. TSH normal. AM cortisol is acceptable. Continue to monitor. Remaining work up as above. (11) Dehydration Is this a current diagnosis for this admission?: Yes Plan: Resolved. Secondary to poor p.o. intake and evidenced by hypernatremia and KIRSTEN. Tube feeds and free water flushes. Continue to encourage p.o. fluids with 1:1 supervision. (12) Musculoskeletal pain of right lower extremity Is this a current diagnosis for this admission?: Yes Plan: The patient refuses to extend her right lower extremity; she keeps the extremity flexed and externally rotated. She is noted to grimace with passive range of motion, no noted pain with palpation. No ecchymosis or known trauma. 2 view right hip x-ray negative for acute findings. - Time Time Spent with patient: 35 or more minutes Anticipated discharge: SNF - Long-term care Within: when bed available - Plan Summary Plan Summary: The patient's hospital course, current state, and extensive workup reviewed with Dr. Villagomez. Dr. Villagomez recommended evaluating sed rate, CRP, and abdominal CT for evidence of occult infection/abscess (patient with intermittently elevated transaminases). <KELLI HARLEY - Last Filed: 04/02/18 07:29> Subjective Reason For Visit: HYPERNATREMIA, URINARY RETENTION Physical Exam Vital Signs: Temp Pulse Resp BP Pulse Ox 97.9 F 75 17 135/81 H 95 04/02/18 04:58 04/02/18 04:00 04/02/18 04:00 04/02/18 04:58 04/02/18 04:00 Intake & Output 04/01/18 04/02/18 04/03/18 06:59 06:59 06:59 Intake Total 4014 4144 Output Total 1400 875 Balance 2614 3269 Weight 177 lb 11.081 oz Results Laboratory Results: 04/01/18 10:05 04/01/18 10:05 04/01/18 04/01/18 10:05 10:05 WBC 5.9 RBC 3.87 Hgb 10.0 L Hct 30.7 L MCV 79 L MCH 25.8 L MCHC 32.6 RDW 24.6 H Plt Count 280 Seg Neutrophils % 62.4 Lymphocytes % 23.3 Monocytes % 12.3 Eosinophils % 1.6 Basophils % 0.4 Absolute Neutrophils 3.7 Absolute Lymphocytes 1.4 Absolute Monocytes 0.7 Absolute Eosinophils 0.1 Absolute Basophils 0.0 Sodium 137.1 Potassium 4.6 Chloride 104 Carbon Dioxide 28 Anion Gap 5 BUN 13 Creatinine 0.48 L Est GFR ( Amer) > 60 Est GFR (Non-Af Amer) > 60 Glucose 143 H Calcium 8.4 Total Bilirubin 0.6 AST 23 ALT 14 Alkaline Phosphatase 166 H C-Reactive Protein 39.1 H Total Protein 6.0 L Albumin 2.4 L 02/28/18 03/01/18 03/01/18 21:25 01:45 08:51 CK-MB (CK-2) Troponin I 0.069 0.063 0.068 NT-Pro-B Natriuret Pep 03/04/18 03/04/18 03/04/18 11:43 15:30 20:48 CK-MB (CK-2) 2.03 Troponin I 0.055 0.048 0.044 NT-Pro-B Natriuret Pep 03/05/18 04/01/18 03:10 10:25 CK-MB (CK-2) Troponin I 0.063 NT-Pro-B Natriuret Pep 4640 H Impressions: Head CT 03/01/18 18:50 IMPRESSION: MILD CHRONIC CHANGES OF ATROPHY AND MICROVASCULAR ISCHEMIA. 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 NO ACUTE PROCESS. EVIDENCE OF ACUTE STROKE: NO. KUB X-Ray 03/19/18 10:09 IMPRESSION: NASOGASTRIC TUBE IN THE STOMACH. NO RADIOGRAPHIC EVIDENCE FOR ACUTE ABDOMINAL DISEASE. Cervical Spine MRI 03/20/18 00:00 IMPRESSION: NORMAL MRI CERVICAL SPINE. Head MRI 03/20/18 00:00 IMPRESSION: ATROPHY AND CHRONIC MICRO-VASCULAR ISCHEMIC CHANGES. FOCAL AREAS OF ABNORMAL WHITE MATTER SIGNAL IN THE POSTERIOR RIGHT PARIETAL LOBE CORRESPONDING TO SIMILAR FINDINGS ON PRIOR CT, CONSISTENT WITH OLD INFARCT. NO ACUTE FINDINGS. EVIDENCE OF ACUTE STROKE: NO. Chest X-Ray 03/27/18 00:00 IMPRESSION: 1. The tip of the feeding tube projects over the region of the distal stomach. 2. Mild volume loss in the left inferior hemithorax possibly due to a combination of pleural fluid, atelectasis or inflammatory changes. 3. Stable mild cardiomegaly and prior median sternotomy. Guidance Fluoroscopy 03/29/18 00:00 IMPRESSION: SUCCESSFUL PLACEMENT OF A 5 FR DUAL LUMEN 40 CM PICC IN THE LEFT BASILIC VEIN. Interventional Vascular Procedure 03/29/18 00:00 IMPRESSION: SUCCESSFUL PLACEMENT OF A 5 FR DUAL LUMEN 40 CM PICC IN THE LEFT BASILIC VEIN. PICC Line Insertion 03/29/18 00:00 IMPRESSION: SUCCESSFUL PLACEMENT OF A 5 FR DUAL LUMEN 40 CM PICC IN THE LEFT BASILIC VEIN. Hip/Pelvis X-Ray 03/30/18 00:00 IMPRESSION: NEGATIVE STUDY OF THE RIGHT HIP. NO RADIOGRAPHIC EVIDENCE OF ACUTE INJURY. Abdomen/Pelvis CT 04/01/18 00:00 IMPRESSION: 1. Small volume ascites not significantly changed from prior study. 2. Moderate left pleural effusion and small right pleural effusion new from prior study. Minimal left basilar atelectasis. 3. Diffuse subcutaneous edema. 4. G-tube has been added since prior study and appears to be in satisfactory position. Assessment & Plan - Plan Summary Plan Summary: i did not see patient- i agree with plan as it was presented to me
[2018-04-01] MEDS ORDERED: FUROSEMIDE 20 MG TABLET PO ONE (17:00)
[2018-04-01] MEDS: TAMSULOSIN HCL 0.4 MG CAP.SR.24H PO SCH (17:10)
[2018-04-01] MEDS: IPRATROPIUM/ALBUTEROL 0.5-2.5 MG/3 ML AMPUL NEB SCH (20:46)
[2018-04-01] MEDS: GUAIFENESIN 600 MG TABLET.SA PO SCH (21:00)
[2018-04-01] MEDS: ASPIRIN 81 MG TABLET, CHEWABLE NG SCH (21:01)
[2018-04-01] MEDS: ATORVASTATIN CALCIUM 20 MG TABLET NG SCH (21:01)
[2018-04-01] MEDS: ACETAMINOPHEN SOLN 325 MG/10.15 ML UDCUP NG PRN (21:18)
[2018-04-02] MEDS: CLONAZEPAM 1 MG TABLET PO PRN (01:09)
[2018-04-02] MEDS: VALPROATE SODIUM SYRUP 250 MG/5 ML UDCUP PO SCH ×2 (06:19→17:11)
[2018-04-02] MEDS: IPRATROPIUM/ALBUTEROL 0.5-2.5 MG/3 ML AMPUL NEB SCH ×2 (08:31→20:05)
[2018-04-02 09:49] LABS: HEMATOCRIT 32.3 % (36.0-47.0); HEMOGLOBIN 10.5 g/dL (12.0-15.5); MEAN CORPUSCULAR HEMOGLOBIN 25.7 pg (27.0-33.4); MEAN CORPUSCULAR HGB CONC 32.4 g/dL (32.0-36.0); MEAN CORPUSCULAR VOLUME 79 fl (80-97); PLATELET COUNT 273 10^3/uL (150-450); RED BLOOD COUNT 4.07 10^6/uL (3.72-5.28); RED CELL DISTRIBUTION WIDTH 24.7 % (11.5-14.0); WHITE BLOOD COUNT 6.1 10^3/uL (4.0-10.5)
[2018-04-02 09:53] LABS: ANION GAP 9 (5-19); BLOOD UREA NITROGEN 13 mg/dL (7-20); CALCIUM 8.6 mg/dL (8.4-10.2); CARBON DIOXIDE 25 mmol/L (22-30); CHLORIDE 103 mmol/L (98-107); GLUCOSE 152 mg/dL (75-110); POTASSIUM 4.5 mmol/L (3.6-5.0); SODIUM 136.9 mmol/L (137-145)
[2018-04-02] MEDS: FUROSEMIDE 20 MG TABLET PO SCH ×2 (10:58→17:11)
[2018-04-02] MEDS: FAMOTIDINE 20 MG TABLET NG SCH ×2 (10:58→21:17)
[2018-04-02] MEDS: ACETAMINOPHEN SOLN 325 MG/10.15 ML UDCUP NG PRN (10:58)
[2018-04-02] MEDS: GUAIFENESIN 600 MG TABLET.SA PO SCH ×2 (10:58→21:17)
[2018-04-02] MEDS: ENOXAPARIN SODIUM INJ 40 MG/0.4 ML DISP.SYRIN SUBCUT SCH (10:59)
[2018-04-02] MEDS: POTASSIUM CHLORIDE 20 MEQ/15 ML UDCUP PO SCH (10:59)
[2018-04-02] MEDS: MULTIVITAMIN ORAL LIQUID 60 ML NG SCH (11:00)
[2018-04-02] MEDS: NORMAL SALINE 10 ML SDV (SCHEDULED) IV SCH ×2 (11:01→21:17)
[2018-04-02] MEDS: NORMAL SALINE 1000 ML 1,000 ML IV PRN (11:08)
[2018-04-02] MEDS: METOPROLOL TARTRATE 25 MG TABLET NG SCH (11:17)
[2018-04-02] MEDS: LISINOPRIL 5 MG TABLET NG SCH (11:17)
[2018-04-02] MEDS ORDERED: LIDOCAINE 5% (700 MG) TRANSDERMAL ADH..PATCH TP ONE (13:00)
--- NOTE | 2018-04-02 16:16 | PDOC PROGRESS REPORT ---
Subjective Progress Note for:: 04/02/18 Subjective:: The patient is a 57-year-old female with a past medical history of CAD, ID x2, hypertension, hyperlipidemia, COPD, DM 2, GERD, bipolar, depression, schizoaffective disorder who initially presented to the emergency department on 02/26/18 with a psychiatric complaint and spent 6 days on psych hold in the emergency department pending placement. Patient then began complaining of chest discomfort and so was referred to the hospitalist service for admission and management on 03/04/18. Cardiac workup revealed LVEF 30%. The patient was seen on morning rounds. She is found resting in bed comfortably on room air. She was awake and alert; but not answering questions or following commands today. She does appear to be resting comfortably and is not noted to be in any acute distress. ROS is limited secondary to altered mental status. No concerns per nursing. Reason For Visit: HYPERNATREMIA, URINARY RETENTION Physical Exam Vital Signs: Temp Pulse Resp BP Pulse Ox 97.6 F 76 20 139/84 H 100 04/02/18 11:45 04/02/18 14:00 04/02/18 11:45 04/02/18 11:45 04/02/18 11:45 Intake & Output 04/01/18 04/02/18 04/03/18 06:59 06:59 06:59 Intake Total 4014 4144 1725 Output Total 1400 1675 750 Balance 2614 2469 975 Weight 80.6 kg 84.1 kg General appearance: PRESENT: no acute distress, well-developed, well-nourished Head exam: PRESENT: atraumatic, normocephalic Eye exam: PRESENT: conjunctiva pink, EOMI, PERRLA. ABSENT: scleral icterus Ear exam: PRESENT: normal external ear exam Mouth exam: PRESENT: moist, tongue midline Teeth exam: PRESENT: poor dentation Neck exam: ABSENT: carotid bruit, JVD, lymphadenopathy, thyromegaly Respiratory exam: PRESENT: clear to auscultation ailyn, symmetrical, unlabored. ABSENT: rales, rhonchi, wheezes Cardiovascular exam: PRESENT: RRR. ABSENT: diastolic murmur, rubs, systolic murmur Pulses: PRESENT: normal dorsalis pedis pul Vascular exam: PRESENT: normal capillary refill GI/Abdominal exam: PRESENT: normal bowel sounds, soft, other - peg tube. ABSENT: distended, guarding, mass, organolmegaly, rebound, tenderness Rectal exam: PRESENT: deferred Extremities exam: PRESENT: full ROM. ABSENT: calf tenderness, clubbing, pedal edema Neurological exam: PRESENT: alert, altered, awake, CN II-XII grossly intact, aphasic. ABSENT: motor sensory deficit Skin exam: PRESENT: dry, intact, warm. ABSENT: cyanosis, rash Results Laboratory Results: 04/02/18 09:11 04/02/18 09:11 04/02/18 04/02/18 09:11 09:11 WBC 6.1 RBC 4.07 Hgb 10.5 L Hct 32.3 L MCV 79 L MCH 25.7 L MCHC 32.4 RDW 24.7 H Plt Count 273 Sodium 136.9 L Potassium 4.5 Chloride 103 Carbon Dioxide 25 Anion Gap 9 BUN 13 Creatinine 0.49 L Est GFR ( Amer) > 60 Est GFR (Non-Af Amer) > 60 Glucose 152 H Calcium 8.6 02/28/18 03/01/18 03/01/18 21:25 01:45 08:51 CK-MB (CK-2) Troponin I 0.069 0.063 0.068 NT-Pro-B Natriuret Pep 03/04/18 03/04/18 03/04/18 11:43 15:30 20:48 CK-MB (CK-2) 2.03 Troponin I 0.055 0.048 0.044 NT-Pro-B Natriuret Pep 03/05/18 04/01/18 04/02/18 03:10 10:25 09:11 CK-MB (CK-2) Troponin I 0.063 NT-Pro-B Natriuret Pep 4640 H 4990 H Impressions: Head CT 03/01/18 18:50 IMPRESSION: MILD CHRONIC CHANGES OF ATROPHY AND MICROVASCULAR ISCHEMIA. 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 NO ACUTE PROCESS. EVIDENCE OF ACUTE STROKE: NO. KUB X-Ray 03/19/18 10:09 IMPRESSION: NASOGASTRIC TUBE IN THE STOMACH. NO RADIOGRAPHIC EVIDENCE FOR ACUTE ABDOMINAL DISEASE. Cervical Spine MRI 03/20/18 00:00 IMPRESSION: NORMAL MRI CERVICAL SPINE. Head MRI 03/20/18 00:00 IMPRESSION: ATROPHY AND CHRONIC MICRO-VASCULAR ISCHEMIC CHANGES. FOCAL AREAS OF ABNORMAL WHITE MATTER SIGNAL IN THE POSTERIOR RIGHT PARIETAL LOBE CORRESPONDING TO SIMILAR FINDINGS ON PRIOR CT, CONSISTENT WITH OLD INFARCT. NO ACUTE FINDINGS. EVIDENCE OF ACUTE STROKE: NO. Chest X-Ray 03/27/18 00:00 IMPRESSION: 1. The tip of the feeding tube projects over the region of the distal stomach. 2. Mild volume loss in the left inferior hemithorax possibly due to a combination of pleural fluid, atelectasis or inflammatory changes. 3. Stable mild cardiomegaly and prior median sternotomy. Guidance Fluoroscopy 03/29/18 00:00 IMPRESSION: SUCCESSFUL PLACEMENT OF A 5 FR DUAL LUMEN 40 CM PICC IN THE LEFT BASILIC VEIN. Interventional Vascular Procedure 03/29/18 00:00 IMPRESSION: SUCCESSFUL PLACEMENT OF A 5 FR DUAL LUMEN 40 CM PICC IN THE LEFT BASILIC VEIN. PICC Line Insertion 03/29/18 00:00 IMPRESSION: SUCCESSFUL PLACEMENT OF A 5 FR DUAL LUMEN 40 CM PICC IN THE LEFT BASILIC VEIN. Hip/Pelvis X-Ray 03/30/18 00:00 IMPRESSION: NEGATIVE STUDY OF THE RIGHT HIP. NO RADIOGRAPHIC EVIDENCE OF ACUTE INJURY. Abdomen/Pelvis CT 04/01/18 00:00 IMPRESSION: 1. Small volume ascites not significantly changed from prior study. 2. Moderate left pleural effusion and small right pleural effusion new from prior study. Minimal left basilar atelectasis. 3. Diffuse subcutaneous edema. 4. G-tube has been added since prior study and appears to be in satisfactory position. Assessment & Plan - Diagnosis (1) Acute encephalopathy Is this a current diagnosis for this admission?: Yes Plan: Plateaued; likely at baseline. Intermittently answers questions and follows commands. Unclear etiology; likely multifactorial secondary to hypernatremia, dehydration, hypertension, underlying mental health disorders (bipolar, schizoaffective disorder), and possibly hospital psychosis. Some concern for infection; wound culture and urine culture match, low-grade temperature. Head CT (03/01/18) mild chronic changes of atrophy with microvascular ischemia and an old right parietal infarct but no acute processes. 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 Urinalysis revealed urinary tract infection Depakote level low; now receiving via NG tube AM cortisol level acceptable. HIV negative Hepatitis panel is negative RPR negative LFTs remain negative (04/01/2018) Will provide for patient safety; fall, aspiration precautions. Supportive care. Now with PEG for nutrition support. Will treat bacteremia; cefazolin 2 g every 8 hours per ID through April 04. Psychiatric team re-consulted; the patient's reduced mental status likely related to an acute infectious process in the setting of early onset dementia (reference MRI results demonstrating atrophy and chronic microvascular changes/CVA). (2) Ischemic cardiomyopathy EF 30% Is this a current diagnosis for this admission?: Yes Plan: Echocardiogram revealed LVEF of 30% with severe global hypokinesis of the left ventricle, paradoxical septal wall motion consistent with right ventricular volume overload. proBNP elevated to 4990; up from 3020 last yeat Patient's weight is noted to be up approximately 20 kg; lung sounds are clear no edema on exam. Does have bilateral pleural effusions incidentally found on CT of the abdomen and pelvis. Continue IV furosemide and monitor closely for fluid volume deficits. We will continue medication regiment; lisinopril, metoprolol, daily aspirin, atorvastatin (3) HTN (hypertension) Qualifiers: Hypertension type: essential hypertension Qualified Code(s): I10 - Essential (primary) hypertension Is this a current diagnosis for this admission?: Yes Plan: Normotensive today. Continue lisinopril 5 mg daily and metoprolol 12.5 mg twice daily. Continue clonidine 0.1 mg/24hr transdermal patch. Furosemide is above. (4) Bipolar 1 disorder, depressed Is this a current diagnosis for this admission?: Yes Plan: Subtherapeutic (03/27/2018); will recheck tomorrow. Depakote increased to 500 mg twice daily. (5) Urine retention Is this a current diagnosis for this admission?: Yes Plan: Pt with bladder distention on exam; bladder scan demonstrated >999 mL. Urinalysis positive for UTI. Bladder scan every 6 hours; continues to have urinary retention. Osorio catheter placed. Started on Flomax daily. Recommend urology follow-up in 3 weeks. (6) UTI (urinary tract infection) Qualifiers: Urinary tract infection type: acute cystitis Hematuria presence: with hematuria Qualified Code(s): N30.01 - Acute cystitis with hematuria Is this a current diagnosis for this admission?: Yes Plan: Urinalysis positive for UTI. Urine culture shows staph aureus. Blood cultures shows staph aureus. Initially treated with vancomycin and Zosyn; transitioned to cefazolin once sensitivities were available. UTI has been adequately treated, however, continues on ceftezole and for bacteremia. (7) Bacteremia Is this a current diagnosis for this admission?: Yes Plan: MSSA identified in blood cultures 03/18/2018. Repeat blood cultures have no growth (03/21/2018). CT of the abdomen and pelvis was negative for abdominal or pelvic abscess. CBC is unremarkable, sed rate and CRP are mildly elevated. However, patient did have a PICC line placed yesterday and a PEG tube placed 3 days prior. Will recheck CRP tomorrow. Infectious disease was consulted; recommends continuing cefazolin 2 g every 8 hours through April 04. PICC line was placed yesterday. ID also recommends repeating echocardiogram to assess for vegetations. Limited study obtained; negative for vegetations. (8) Hypernatremia Is this a current diagnosis for this admission?: Yes Plan: Resolved. Have ordered tube feeds with free water flushes every hourly (reference funeral attendant's note). book illustrator is consulted. Previously spoke with Dr. Hadley; does not feel that there is an additional wor kup needed for hypernatremia/KIRSTEN. Confirms that the patient's current hyponatremia would not cause her decreased mental status. (9) Hypokalemia Is this a current diagnosis for this admission?: Yes Plan: Replete; secondary to poor p.o. intake. Continue daily potassium supplement. Now receiving enteral nutrition via tube feeds. Serial chemistries. (10) Somnolence Is this a current diagnosis for this admission?: Yes Plan: Resolved; patient now is awake. Intermittently answering simple questions and following one-step simple commands. TSH normal. AM cortisol is acceptable. Continue to monitor. Remaining work up as above. (11) Dehydration Is this a current diagnosis for this admission?: Yes Plan: Resolved. Secondary to poor p.o. intake and evidenced by hypernatremia and KIRSTEN. Tube feeds and free water flushes. Continue to encourage p.o. fluids with 1:1 supervision. (12) Musculoskeletal pain of right lower extremity Is this a current diagnosis for this admission?: Yes Plan: The patient refuses to extend her right lower extremity; she keeps the extremity flexed and externally rotated. She is noted to grimace with passive range of motion, no noted pain with palpation. No ecchymosis or known trauma. 2 view right hip x-ray negative for acute findings. Tylenol or Motrin as needed for pain. Lidoderm patch. - Time Time Spent with patient: 15-24 minutes Medications reviewed and adjusted accordingly: Yes Anticipated discharge: SNF
[2018-04-02] MEDS: TAMSULOSIN HCL 0.4 MG CAP.SR.24H PO SCH (17:10)
[2018-04-02] MEDS: METOPROLOL TARTRATE 25 MG TABLET PEG SCH (21:15)
[2018-04-02] MEDS: ASPIRIN 81 MG TABLET, CHEWABLE NG SCH (21:16)
[2018-04-02] MEDS: IBUPROFEN 600 MG TABLET PO PRN (21:17)
[2018-04-02] MEDS: ATORVASTATIN CALCIUM 20 MG TABLET NG SCH (21:17)
[2018-04-03] MEDS: VALPROATE SODIUM SYRUP 250 MG/5 ML UDCUP PO SCH ×2 (05:02→17:22)
[2018-04-03 07:29] LABS: ANION GAP 7 (5-19); BLOOD UREA NITROGEN 14 mg/dL (7-20); CALCIUM 8.6 mg/dL (8.4-10.2); CARBON DIOXIDE 28 mmol/L (22-30); CHLORIDE 101 mmol/L (98-107); GLUCOSE 133 mg/dL (75-110); POTASSIUM 4.7 mmol/L (3.6-5.0); SODIUM 136.1 mmol/L (137-145)
[2018-04-03] MEDS: IPRATROPIUM/ALBUTEROL 0.5-2.5 MG/3 ML AMPUL NEB SCH ×2 (08:52→19:59)
[2018-04-03] MEDS: FAMOTIDINE 20 MG TABLET NG SCH ×2 (10:33→21:42)
[2018-04-03] MEDS: POTASSIUM CHLORIDE 20 MEQ/15 ML UDCUP PO SCH (10:33)
[2018-04-03] MEDS: ENOXAPARIN SODIUM INJ 40 MG/0.4 ML DISP.SYRIN SUBCUT SCH ×2 (10:33→11:00)
[2018-04-03] MEDS: GUAIFENESIN 600 MG TABLET.SA PO SCH ×2 (10:33→21:43)
[2018-04-03] MEDS: METOPROLOL TARTRATE 25 MG TABLET PEG SCH ×2 (10:33→21:42)
[2018-04-03] MEDS: LISINOPRIL 5 MG TABLET PEG SCH (10:34)
[2018-04-03] MEDS: NORMAL SALINE 10 ML SDV (SCHEDULED) IV SCH ×2 (10:34→21:44)
[2018-04-03] MEDS: MULTIVITAMIN ORAL LIQUID 60 ML NG SCH (10:35)
[2018-04-03] MEDS: FUROSEMIDE INJ/PF 20 MG/2 ML SDV IV SCH ×2 (10:35→21:43)
--- NOTE | 2018-04-03 13:33 | PDOC PROGRESS REPORT ---
Subjective Progress Note for:: 04/03/18 Subjective:: The patient is a 57-year-old female with a past medical history of CAD, ID x2, hypertension, hyperlipidemia, COPD, DM 2, GERD, bipolar, depression, schizoaffective disorder who initially presented to the emergency department on 02/26/18 with a psychiatric complaint and spent 6 days on psych hold in the emergency department pending placement. Patient then began complaining of chest discomfort and so was referred to the hospitalist service for admission and management on 03/04/18. Cardiac workup revealed LVEF 30%. The patient was seen on morning rounds. She is found resting in bed comfortably on room air. She was awake and alert; she answers a few yes or no questions today but otherwise is not conversational. However, she does follow commands and has equal 3/5 prospect manager strength bilaterally and was able to assist with rolling side to side so that I could examine her back and listen to her lungs. ROS is limited secondary to altered mental status. No concerns per nursing. Reason For Visit: HYPERNATREMIA, URINARY RETENTION Physical Exam Vital Signs: Temp Pulse Resp BP Pulse Ox 97.3 F 85 20 121/70 90 L 04/03/18 10:55 04/03/18 10:55 04/03/18 10:55 04/03/18 10:55 04/03/18 10:55 Intake & Output 04/02/18 04/03/18 04/04/18 06:59 06:59 06:59 Intake Total 4144 3536 499 Output Total 1675 3050 Balance 2469 486 499 Weight 84.1 kg 79.8 kg General appearance: PRESENT: no acute distress, well-developed, well-nourished - Overweight Head exam: PRESENT: atraumatic, normocephalic Eye exam: PRESENT: conjunctiva pink, EOMI, PERRLA. ABSENT: scleral icterus Ear exam: PRESENT: normal external ear exam Mouth exam: PRESENT: moist, tongue midline Teeth exam: PRESENT: poor dentation Neck exam: ABSENT: carotid bruit, JVD, lymphadenopathy, thyromegaly Respiratory exam: PRESENT: clear to auscultation ailyn, decreased breath sounds - Bibasilar, symmetrical, unlabored. ABSENT: rales, rhonchi, wheezes Cardiovascular exam: PRESENT: RRR, +S1, +S2. ABSENT: diastolic murmur, rubs, systolic murmur Pulses: PRESENT: normal dorsalis pedis pul Vascular exam: PRESENT: normal capillary refill GI/Abdominal exam: PRESENT: normal bowel sounds, soft, other - PEG tube. ABSENT: ascites, distended, guarding, mass, organolmegaly, rebound, tenderness Rectal exam: PRESENT: deferred Extremities exam: PRESENT: full ROM. ABSENT: calf tenderness, clubbing, pedal edema Neurological exam: PRESENT: alert, awake, CN II-XII grossly intact, other - Improved alertness today; was able to answer yes or no questions and follow simple commands. ABSENT: motor sensory deficit Psychiatric exam: PRESENT: appropriate affect, normal mood. ABSENT: homicidal ideation, suicidal ideation Skin exam: PRESENT: dry, intact, warm, other - Abscess to right clavicle; no drainage or surrounding erythema. ABSENT: cyanosis, rash Results Laboratory Results: 04/02/18 09:11 04/03/18 05:00 04/03/18 05:00 Sodium 136.1 L Potassium 4.7 Chloride 101 Carbon Dioxide 28 Anion Gap 7 BUN 14 Creatinine 0.56 Est GFR ( Amer) > 60 Est GFR (Non-Af Amer) > 60 Glucose 133 H Calcium 8.6 C-Reactive Protein 39.0 H 02/28/18 03/01/18 03/01/18 21:25 01:45 08:51 CK-MB (CK-2) Troponin I 0.069 0.063 0.068 NT-Pro-B Natriuret Pep 03/04/18 03/04/18 03/04/18 11:43 15:30 20:48 CK-MB (CK-2) 2.03 Troponin I 0.055 0.048 0.044 NT-Pro-B Natriuret Pep 03/05/18 04/01/18 04/02/18 03:10 10:25 09:11 CK-MB (CK-2) Troponin I 0.063 NT-Pro-B Natriuret Pep 4640 H 4990 H 04/03/18 05:00 CK-MB (CK-2) Troponin I NT-Pro-B Natriuret Pep 5580 H Impressions: Head CT 03/01/18 18:50 IMPRESSION: MILD CHRONIC CHANGES OF ATROPHY AND MICROVASCULAR ISCHEMIA. 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 NO ACUTE PROCESS. EVIDENCE OF ACUTE STROKE: NO. KUB X-Ray 03/19/18 10:09 IMPRESSION: NASOGASTRIC TUBE IN THE STOMACH. NO RADIOGRAPHIC EVIDENCE FOR ACUTE ABDOMINAL DISEASE. Cervical Spine MRI 03/20/18 00:00 IMPRESSION: NORMAL MRI CERVICAL SPINE. Head MRI 03/20/18 00:00 IMPRESSION: ATROPHY AND CHRONIC MICRO-VASCULAR ISCHEMIC CHANGES. FOCAL AREAS OF ABNORMAL WHITE MATTER SIGNAL IN THE POSTERIOR RIGHT PARIETAL LOBE CORRESPONDING TO SIMILAR FINDINGS ON PRIOR CT, CONSISTENT WITH OLD INFARCT. NO ACUTE FINDINGS. EVIDENCE OF ACUTE STROKE: NO. Chest X-Ray 03/27/18 00:00 IMPRESSION: 1. The tip of the feeding tube projects over the region of the distal stomach. 2. Mild volume loss in the left inferior hemithorax possibly due to a combination of pleural fluid, atelectasis or inflammatory changes. 3. Stable mild cardiomegaly and prior median sternotomy. Guidance Fluoroscopy 03/29/18 00:00 IMPRESSION: SUCCESSFUL PLACEMENT OF A 5 FR DUAL LUMEN 40 CM PICC IN THE LEFT BASILIC VEIN. Interventional Vascular Procedure 03/29/18 00:00 IMPRESSION: SUCCESSFUL PLACEMENT OF A 5 FR DUAL LUMEN 40 CM PICC IN THE LEFT BASILIC VEIN. PICC Line Insertion 03/29/18 00:00 IMPRESSION: SUCCESSFUL PLACEMENT OF A 5 FR DUAL LUMEN 40 CM PICC IN THE LEFT BASILIC VEIN. Hip/Pelvis X-Ray 03/30/18 00:00 IMPRESSION: NEGATIVE STUDY OF THE RIGHT HIP. NO RADIOGRAPHIC EVIDENCE OF ACUTE INJURY. Abdomen/Pelvis CT 04/01/18 00:00 IMPRESSION: 1. Small volume ascites not significantly changed from prior study. 2. Moderate left pleural effusion and small right pleural effusion new from prior study. Minimal left basilar atelectasis. 3. Diffuse subcutaneous edema. 4. G-tube has been added since prior study and appears to be in satisfactory position. Assessment & Plan - Diagnosis (1) Acute encephalopathy Is this a current diagnosis for this admission?: Yes Plan: Plateaued; likely at baseline. Intermittently answers questions and follows commands. Unclear etiology; likely multifactorial secondary to hypernatremia, dehydration, hypertension, underlying mental health disorders (bipolar, schizoaffective disorder), and possibly hospital psychosis. Some concern for infection; wound culture and urine culture match, low-grade temperature. Head CT (03/01/18) mild chronic changes of atrophy with microvascular ischemia and an old right parietal infarct but no acute processes. 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 Urinalysis revealed urinary tract infection Depakote level low; now receiving via peg tube AM cortisol level acceptable. HIV negative Hepatitis panel is negative RPR negative LFTs remain negative (04/01/2018) Will provide for patient safety; fall, aspiration precautions. Supportive care. Now with PEG for nutrition support. Will treat bacteremia; cefazolin 2 g every 8 hours per ID through April 04. Psychiatric team re-consulted; the patient's reduced mental status likely related to an acute infectious process in the setting of early onset dementia (reference MRI results demonstrating atrophy and chronic microvascular changes/CVA). (2) Ischemic cardiomyopathy EF 30% Is this a current diagnosis for this admission?: Yes Plan: Echocardiogram revealed LVEF of 30% with severe global hypokinesis of the left ventricle, paradoxical septal wall motion consistent with right ventricular volume overload. proBNP elevated to 4k--> 5580; up from 3020 last yeat Patient's weight is noted to be up approximately 20 kg; lung sounds are clear no edema on exam. Does have bilateral pleural effusions incidentally found on CT of the abdomen and pelvis. Continue IV furosemide and monitor closely for fluid volume deficits; excellent urine output yesterday. We will continue medication regiment; lisinopril, metoprolol, daily aspirin, atorvastatin (3) HTN (hypertension) Qualifiers: Hypertension type: essential hypertension Qualified Code(s): I10 - [place] l (primary) hypertension Is this a current diagnosis for this admission?: Yes Plan: Normotensive today. Continue lisinopril 5 mg daily and metoprolol 12.5 mg twice daily. Continue clonidine 0.1 mg/24hr transdermal patch. Furosemide is above. (4) Bipolar 1 disorder, depressed Is this a current diagnosis for this admission?: Yes Plan: Subtherapeutic (03/27/2018); will recheck tomorrow. Depakote increased to 500 mg twice daily. (5) Urine retention Is this a current diagnosis for this admission?: Yes Plan: Pt with bladder distention on exam; bladder scan demonstrated >999 mL. Urinalysis positive for UTI. Osorio catheter placed. Started on Flomax daily. Recommend urology follow-up in 3 weeks. (6) UTI (urinary tract infection) Qualifiers: Urinary tract infection type: acute cystitis Hematuria presence: with hematuria Qualified Code(s): N30.01 - Acute cystitis with hematuria Is this a current diagnosis for this admission?: Yes Plan: Urinalysis positive for UTI. Urine culture shows staph aureus. Blood cultures shows staph aureus. Initially treated with vancomycin and Zosyn; transitioned to cefazolin once sensitivities were available. UTI has been adequately treated, however, continues on ceftezole and for bacteremia. (7) Bacteremia Is this a current diagnosis for this admission?: Yes Plan: MSSA identified in blood cultures 03/18/2018. Repeat blood cultures have no growth (03/21/2018). CT of the abdomen and pelvis was negative for abdominal or pelvic abscess. CBC is unremarkable, sed rate and CRP are mildly elevated. However, patient did have a PICC line placed yesterday and a PEG tube placed 3 days prior. CRP stable. Infectious disease was consulted; recommends continuing cefazolin 2 g every 8 hours through April 04. PICC line and PEG tube placed this week. Surgery consulted for evaluation of right clavical-area abscess; likely bedside I&D as the site is no longer draining and appears more indurated today. No surrounding cellulitis. ID also recommends repeating echocardiogram to assess for vegetations. Limited study obtained; negative for vegetations. (8) Hypernatremia Is this a current diagnosis for this admission?: Yes Plan: Resolved. Have ordered tube feeds with free water flushes every hourly (reference registered veterinary technician's note). mailing section clerk is consulted. Previously spoke with Dr. Hadley; does not feel that there is an additional workup needed for hypernatremia/KIRSTEN. Confirms that the patient's current hyponatremia would not cause her decreased mental status. (9) Hypokalemia Is this a current diagnosis for this admission?: Yes Plan: Replete; secondary to poor p.o. intake. Continue daily potassium supplement. Now receiving enteral nutrition via tube feeds. Serial chemistries. (10) Somnolence Is this a current diagnosis for this admission?: Yes Plan: Resolved; patient now is awake and intermittently responsive; today she is answering simple questions and following one-step simple commands. TSH normal. AM cortisol is acceptable. Continue to monitor. Remaining work up as above. (11) Dehydration Is this a current diagnosis for this admission?: Yes Plan: Resolved. Secondary to poor p.o. intake and evidenced by hypernatremia and KIRSTEN. Tube feeds and free water flushes. Continue to encourage p.o. fluids with 1:1 supervision. (12) Musculoskeletal pain of right lower extremity Is this a current diagnosis for this admission?: Yes Plan: Appears improved; the patient was noted to extend her right leg without grimacing today. She had been keeping the extremity flexed and externally rotated and was noted to grimace with passive range of motion, no noted pain with palpation. No ecchymosis or known trauma. 2 view right hip x-ray negative for acute findings. Tylenol or Motrin as needed for pain. Lidoderm patch. (13) Abscess Is this a current diagnosis for this admission?: Yes Plan: Patient has had a 3 cm round abscess to her right supraclavicular area; present on arrival, and previously draining. The site was flat; without induration or cellulitis, and nontender to touch. Therefore, surgical services were not indicated. However, the site is no longer draining and now appears to be i ndurated with slight tenderness on palpation. Spoke with Dr. Lynn; will evaluate for possible bedside I&D. Patient his evaluation and recommendations. - Time Time Spent with patient: 15-24 minutes Medications reviewed and adjusted accordingly: Yes Anticipated discharge: SNF Within: when bed available
[2018-04-03] MEDS: IBUPROFEN 600 MG TABLET PO PRN (13:34)
[2018-04-03] MEDS: TAMSULOSIN HCL 0.4 MG CAP.SR.24H PO SCH (17:21)
[2018-04-03] MEDS: CLONAZEPAM 1 MG TABLET PO PRN (17:52)
--- NOTE | 2018-04-03 20:43 | OPERATIVE REPORT E ---
Operative Report NAME: CHARLEY SHERMAN : 1960 AGE: 57Y DATE OF SURGERY: 04/03/2018 ROOM: 419 PREOPERATIVE DIAGNOSIS: INFECTED CYST RIGHT SUPRACLAVICULAR AREA. POSTOPERATIVE DIAGNOSIS: INFECTED CYST RIGHT SUPRACLAVICULAR AREA. OPERATION: Incision and drainage of infected cyst of the right supraclavicular area. SURGEON: MADAY SANTIAGO M.D. ANESTHESIA: Local. INDICATION: This is a 57-year-old female who was noted to have mass at the right supraclavicular area about 2 cm in diameter and I was asked to do an I and D of an abscess. It started to drain a little bit of purulent material when seen prior to I and D. DETAILS OF PROCEDURE: The patient was placed in supine position at bedside and the right neck and supraclavicular area were then prepped and draped in the usual sterile fashion. Local anesthesia was infiltrated around the infected cyst area and a cruciate incision made over the middle part of the cystic site. Cultures were obtained. Next the cyst contents were then removed with forceps and a hemostat. The area was subsequently packed with a 1/2 inch Iodoform gauze. Sterile dressings placed over the operative site. The patient tolerated the procedure well. DICTATING PHYSICIAN: MADAY SANTIAGO M.D. [id number] PHY#: [id number] ID: [id number] JOB#: [id number] ACCT: [id number] cc:MADAY SANTIAGO M.D. >
[2018-04-03] MEDS: ASPIRIN 81 MG TABLET, CHEWABLE NG SCH (21:42)
[2018-04-03] MEDS: ATORVASTATIN CALCIUM 20 MG TABLET NG SCH (21:43)
[2018-04-04] MEDS: VALPROATE SODIUM SYRUP 250 MG/5 ML UDCUP PO SCH ×2 (05:35→17:55)
[2018-04-04 06:04] LABS: HEMATOCRIT 30.8 % (36.0-47.0); HEMOGLOBIN 10.2 g/dL (12.0-15.5); MEAN CORPUSCULAR HEMOGLOBIN 25.9 pg (27.0-33.4); MEAN CORPUSCULAR HGB CONC 32.9 g/dL (32.0-36.0); MEAN CORPUSCULAR VOLUME 79 fl (80-97); PLATELET COUNT 245 10^3/uL (150-450); RED BLOOD COUNT 3.92 10^6/uL (3.72-5.28); RED CELL DISTRIBUTION WIDTH 24.5 % (11.5-14.0); WHITE BLOOD COUNT 6.5 10^3/uL (4.0-10.5)
[2018-04-04 06:20] LABS: ANION GAP 12 (5-19); BLOOD UREA NITROGEN 17 mg/dL (7-20); CALCIUM 8.9 mg/dL (8.4-10.2); CARBON DIOXIDE 27 mmol/L (22-30); CHLORIDE 97 mmol/L (98-107); GLUCOSE 121 mg/dL (75-110); POTASSIUM 4.7 mmol/L (3.6-5.0)
[2018-04-04] MEDS: IPRATROPIUM/ALBUTEROL 0.5-2.5 MG/3 ML AMPUL NEB SCH ×2 (08:33→19:46)
[2018-04-04] MEDS: MULTIVITAMIN ORAL LIQUID 60 ML NG SCH (09:37)
[2018-04-04] MEDS: POTASSIUM CHLORIDE 20 MEQ/15 ML UDCUP PO SCH (09:38)
[2018-04-04] MEDS: LISINOPRIL 5 MG TABLET PEG SCH (09:39)
[2018-04-04] MEDS: GUAIFENESIN 600 MG TABLET.SA PO SCH (09:39)
[2018-04-04] MEDS: FAMOTIDINE 20 MG TABLET NG SCH ×2 (09:39→22:10)
[2018-04-04] MEDS: METOPROLOL TARTRATE 25 MG TABLET PEG SCH ×2 (09:40→22:10)
[2018-04-04] MEDS: FUROSEMIDE INJ/PF 20 MG/2 ML SDV IV SCH (09:41)
[2018-04-04] MEDS: NORMAL SALINE 10 ML SDV (SCHEDULED) IV SCH ×2 (09:43→22:10)
--- NOTE | 2018-04-04 11:35 | PDOC PROGRESS REPORT ---
Subjective Progress Note for:: 04/04/18 Subjective:: The patient is a 57-year-old female with a past medical history of CAD, NC x2, hypertension, hyperlipidemia, COPD, DM 2, GERD, bipolar, depression, schizoaffective disorder who initially presented to the emergency department on 02/26/18 with a psychiatric complaint and spent 6 days on psych hold in the emergency department pending placement. Patient then began complaining of chest discomfort and so was referred to the hospitalist service for admission and management on 03/04/18. Cardiac workup revealed LVEF 30%. The patient was seen on morning rounds. She is found resting in bed comfortably on room air. She was awake, A&O to self and answers a few a few yes or no questions today. She is not following commands today. ROS is limited secondary to altered mental status. No concerns per nursing. Reason For Visit: HYPERNATREMIA, URINARY RETENTION Physical Exam Vital Signs: Temp Pulse Resp BP Pulse Ox 98.5 F 78 18 113/78 92 04/04/18 07:44 04/04/18 08:33 04/04/18 08:33 04/04/18 07:44 04/04/18 08:33 Intake & Output 04/03/18 04/04/18 04/05/18 06:59 06:59 06:59 Intake Total 3536 1902 Output Total 3050 2075 Balance 486 -173 Weight 79.8 kg 79 kg General appearance: PRESENT: no acute distress, well-developed Head exam: PRESENT: atraumatic, normocephalic Eye exam: PRESENT: conjunctiva pink, EOMI, PERRLA. ABSENT: scleral icterus Ear exam: PRESENT: normal external ear exam Mouth exam: PRESENT: moist, tongue midline Teeth exam: PRESENT: poor dentation Neck exam: ABSENT: carotid bruit, JVD, lymphadenopathy, thyromegaly Respiratory exam: PRESENT: clear to auscultation ailyn, decreased breath sounds - Bibasilar; poor inspiratory effort., symmetrical, unlabored. ABSENT: rales, rhonchi, wheezes Cardiovascular exam: PRESENT: RRR, +S1, +S2. ABSENT: diastolic murmur, rubs, systolic murmur Pulses: PRESENT: normal dorsalis pedis pul Vascular exam: PRESENT: normal capillary refill GI/Abdominal exam: PRESENT: normal bowel sounds, soft, other - PEG tube. ABSENT: distended, guarding, mass, organolmegaly, rebound, tenderness Rectal exam: PRESENT: deferred Extremities exam: PRESENT: full ROM, tenderness - Right lower extremity with extension, no tenderness on palpation. ABSENT: calf tenderness, clubbing, pedal edema Neurological exam: PRESENT: alert, awake, oriented to person, CN II-XII grossly intact. ABSENT: motor sensory deficit Psychiatric exam: PRESENT: appropriate affect, flat affect, normal mood. ABSE NT: homicidal ideation, suicidal ideation Skin exam: PRESENT: dry, warm. ABSENT: cyanosis, intact - Abscess to right clavicle now status post I&D by surgery, rash Results Laboratory Results: 04/04/18 05:40 04/04/18 05:40 04/04/18 04/04/18 05:40 05:40 WBC 6.5 RBC 3.92 Hgb 10.2 L Hct 30.8 L MCV 79 L MCH 25.9 L MCHC 32.9 RDW 24.5 H Plt Count 245 Sodium 136.0 L Potassium 4.7 Chloride 97 L Carbon Dioxide 27 Anion Gap 12 BUN 17 Creatinine 0.61 Est GFR ( Amer) > 60 Est GFR (Non-Af Amer) > 60 Glucose 121 H Calcium 8.9 02/28/18 03/01/18 03/01/18 21:25 01:45 08:51 CK-MB (CK-2) Troponin I 0.069 0.063 0.068 NT-Pro-B Natriuret Pep 03/04/18 03/04/18 03/04/18 11:43 15:30 20:48 CK-MB (CK-2) 2.03 Troponin I 0.055 0.048 0.044 NT-Pro-B Natriuret Pep 03/05/18 04/01/18 04/02/18 03:10 10:25 09:11 CK-MB (CK-2) Troponin I 0.063 NT-Pro-B Natriuret Pep 4640 H 4990 H 04/03/18 04/04/18 05:00 05:40 CK-MB (CK-2) Troponin I NT-Pro-B Natriuret Pep 5580 H 4390 H Impressions: Head CT 03/01/18 18:50 IMPRESSION: MILD CHRONIC CHANGES OF ATROPHY AND MICROVASCULAR ISCHEMIA. 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 NO ACUTE PROCESS. EVIDENCE OF ACUTE STROKE: NO. KUB X-Ray 03/19/18 10:09 IMPRESSION: NASOGASTRIC TUBE IN THE STOMACH. NO RADIOGRAPHIC EVIDENCE FOR ACUTE ABDOMINAL DISEASE. Cervical Spine MRI 03/20/18 00:00 IMPRESSION: NORMAL MRI CERVICAL SPINE. Head MRI 03/20/18 00:00 IMPRESSION: ATROPHY AND CHRONIC MICRO-VASCULAR ISCHEMIC CHANGES. FOCAL AREAS OF ABNORMAL WHITE MATTER SIGNAL IN THE POSTERIOR RIGHT PARIETAL LOBE CORRESPONDING TO SIMILAR FINDINGS ON PRIOR CT, CONSISTENT WITH OLD INFARCT. NO ACUTE FINDINGS. EVIDENCE OF ACUTE STROKE: NO. Chest X-Ray 03/27/18 00:00 IMPRESSION: 1. The tip of the feeding tube projects over the region of the distal stomach. 2. Mild volume loss in the left inferior hemithorax possibly due to a combination of pleural fluid, atelectasis or inflammatory changes. 3. Stable mild cardiomegaly and prior median sternotomy. Guidance Fluoroscopy 03/29/18 00:00 IMPRESSION: SUCCESSFUL PLACEMENT OF A 5 FR DUAL LUMEN 40 CM PICC IN THE LEFT BASILIC VEIN. Interventional Vascular Procedure 03/29/18 00:00 IMPRESSION: SUCCESSFUL PLACEMENT OF A 5 FR DUAL LUMEN 40 CM PICC IN THE LEFT BASILIC VEIN. PICC Line Insertion 03/29/18 00:00 IMPRESSION: SUCCESSFUL PLACEMENT OF A 5 FR DUAL LUMEN 40 CM PICC IN THE LEFT BASILIC VEIN. Hip/Pelvis X-Ray 03/30/18 00:00 IMPRESSION: NEGATIVE STUDY OF THE RIGHT HIP. NO RADIOGRAPHIC EVIDENCE OF ACUTE INJURY. Abdomen/Pelvis CT 04/01/18 00:00 IMPRESSION: 1. Small volume ascites not significantly changed from prior study. 2. Moderate left pleural effusion and small right pleural effusion new from prior study. Minimal left basilar atelectasis. 3. Diffuse subcutaneous edema. 4. G-tube has been added since prior study and appears to be in satisfactory position. Assessment & Plan - Diagnosis (1) Acute encephalopathy Is this a current diagnosis for this admission?: Yes Plan: Plateaued; likely at baseline. Intermittently answers questions and follows commands. Unclear etiology; likely multifactorial secondary to hypernatremia, dehydration, hypertension, underlying mental health disorders (bipolar, schizoaffective disorder), and possibly hospital psychosis. Some concern for infection; wound culture and urine culture match, low-grade temperature. Head CT (03/01/18) mild chronic changes of atrophy with microvascular ischemia and an old right parietal infarct but no acute processes. 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 Urinalysis revealed urinary tract infection Depakote level acceptable; now receiving via peg tube AM cortisol level acceptable. HIV negative Hepatitis panel is negative RPR negative LFTs remain negative (04/01/2018) Will provide for patient safety; fall, aspiration precautions. Supportive care. Now with PEG for nutrition support. Have completed course of antibiotic therapy. Psychiatric team re-consulted; the patient's reduced mental status likely related to an acute infectious process in the setting of early onset dementia (reference MRI results demonstrating atrophy and chronic microvascular changes/CVA). (2) Ischemic cardiomyopathy EF 30% Is this a current diagnosis for this admission?: Yes Plan: Echocardiogram revealed LVEF of 30% with severe global hypokinesis of the left ventricle, paradoxical septal wall motion consistent with right ventricular volume overload. proBNP elevated to 4k--> 5580--> 4390; up from 3020 last year Patient's weight is noted to be up approximately 20 kg; lung sounds are clear, she is noted to have dependent edema. Bilateral pleural effusions incidentally found on CT of the abdomen and pelvis. Transition to p.o. furosemide and will add spironolactone. We will continue medication regiment; lisinopril, metoprolol, daily aspirin, atorvastatin (3) HTN (hypertension) Qualifiers: Hypertension type: essential hypertension Qualified Code(s): I10 - Esse ntial (primary) hypertension Is this a current diagnosis for this admission?: Yes Plan: Normotensive today. Continue lisinopril 5 mg daily and metoprolol 12.5 mg twice daily. And on p.o. spironolactone and furosemide. Clonidine patch on hold. (4) Bipolar 1 disorder, depressed Is this a current diagnosis for this admission?: Yes Plan: Subtherapeutic (03/27/2018); will recheck tomorrow. Depakote increased to 500 mg twice daily. (5) Urine retention Is this a current diagnosis for this admission?: Yes Plan: Pt with bladder distention on exam; bladder scan demonstrated >999 mL. Urinalysis positive for UTI. Osorio catheter placed. Started on Flomax daily. Recommend urology follow-up in 3 weeks. (6) UTI (urinary tract infection) Qualifiers: Urinary tract infection type: acute cystitis Hematuria presence: with hematuria Qualified Code(s): N30.01 - Acute cystitis with hematuria Is this a current diagnosis for this admission?: Yes Plan: Urinalysis positive for UTI. Urine culture shows staph aureus. Blood cultures shows staph aureus. Have completed full course of antibiotic therapy. (7) Bacteremia Is this a current diagnosis for this admission?: Yes Plan: MSSA identified in blood cultures 03/18/2018. Repeat blood cultures have no growth (03/21/2018). CT of the abdomen and pelvis was negative for abdominal or pelvic abscess. CBC is unremarkable, sed rate and CRP are mildly elevated. However, patient did have a PICC line placed yesterday and a PEG tube placed 3 days prior. CRP stable; likely mildly elevated due to recent PICC and PEG placement and I&D to right clavicle. Repeat echocardiogram to assess for vegetations. Limited study obtained; negative for vegetations. Completed 2-week course of Ancef. (8) Hypernatremia Is this a current diagnosis for this admission?: Yes Plan: Resolved. Have ordered tube feeds with free water flushes every hourly (reference pipe stress engineer's note). financial services technician is consulted. Previously spoke with Dr. Hadley; does not feel that there is an additional workup needed for hypernatremia/KIRSTEN. Confirms that the patient's current hyponatremia would not cause her decreased mental status. (9) Hypokalemia Is this a current diagnosis for this admission?: Yes Plan: Replete; secondary to poor p.o. intake. Continue daily potassium supplement; monitor closely with initiation of spironolactone today. Now receiving enteral nutrition via tube feeds. Serial chemistries. (10) Somnolence Is this a current diagnosis for this admission?: Yes Plan: Resolved; patient now is awake and intermittently responsive; today she is answering simple questions and following one-step simple commands. TSH normal. AM cortisol is acceptable. Continue to monitor. Remaining work up as above. (11) Dehydration Is this a current diagnosis for this admission?: Yes Plan: Resolved. Secondary to poor p.o. intake and evidenced by hypernatremia and KIRSTEN. Tube feeds and free water flushes. Continue to encourage p.o. fluids with 1:1 supervision. (12) Musculoskeletal pain of right lower extremity Is this a current diagnosis for this admission?: Yes Plan: Appears improved; the patient was noted to extend her right leg without grimacing today. She had been keeping the extremity flexed and externally rotated and was noted to grimace with passive range of motion, no noted pain with palpation. No ecchymosis or known trauma. 2 view right hip x-ray negative for acute findings. Tylenol or Motrin as needed for pain. Lidoderm patch. (13) Abscess Is this a current diagnosis for this admission?: Yes Plan: Patient has had a 3 cm round abscess to her right supraclavicular area; present on arrival, and previously draining. The site was flat; without induration or cellulitis, and nontender to touch. Therefore, surgical services were not indicated. However, the site is no longer draining and now appears to be indurated with slight tenderness on palpation. Now s/p I&D by surgery with packing in place. Appreciate Surgery's assistance. - Time Time Spent with patient: Less than 15 minutes Medications reviewed and adjusted accordingly: Yes Anticipated discharge: SNF - [facility] care Within: Other - Needs PASRR review/approval by state.
[2018-04-04] MEDS: TAMSULOSIN HCL 0.4 MG CAP.SR.24H PO SCH (17:52)
[2018-04-04] MEDS: CLONAZEPAM 1 MG TABLET PO PRN (22:09)
[2018-04-04] MEDS: ASPIRIN 81 MG TABLET, CHEWABLE NG SCH (22:09)
[2018-04-04] MEDS: ATORVASTATIN CALCIUM 20 MG TABLET NG SCH (22:10)
[2018-04-05] MEDS: VALPROATE SODIUM SYRUP 250 MG/5 ML UDCUP PO SCH ×2 (05:21→17:55)
[2018-04-05 06:55] LABS: HEMATOCRIT 29.7 % (36.0-47.0); HEMOGLOBIN 9.8 g/dL (12.0-15.5); MEAN CORPUSCULAR HGB CONC 32.9 g/dL (32.0-36.0); MEAN CORPUSCULAR VOLUME 79 fl (80-97); PLATELET COUNT 218 10^3/uL (150-450); RED BLOOD COUNT 3.77 10^6/uL (3.72-5.28); WHITE BLOOD COUNT 7.6 10^3/uL (4.0-10.5)
[2018-04-05 07:26] LABS: ALANINE AMINOTRANSFERASE 8 U/L (9-52); ALBUMIN 2.7 g/dL (3.5-5.0); ALKALINE PHOSPHATASE 175 U/L (38-126); ANION GAP 10 (5-19); ASPARTATE AMINO TRANSFERASE 23 U/L (14-36); BILIRUBIN,DIRECT 0.6 mg/dL (0.0-0.4); BILIRUBIN,TOTAL 0.7 mg/dL (0.2-1.3); BLOOD UREA NITROGEN 18 mg/dL (7-20); CALCIUM 8.5 mg/dL (8.4-10.2); CARBON DIOXIDE 26 mmol/L (22-30); CHLORIDE 96 mmol/L (98-107); GLUCOSE 148 mg/dL (75-110); PHOSPHORUS 5.2 mg/dL (2.5-4.5); POTASSIUM 4.5 mmol/L (3.6-5.0); SODIUM 132.3 mmol/L (137-145); TOTAL PROTEIN 6.6 g/dL (6.3-8.2)
[2018-04-05] MEDS: IPRATROPIUM/ALBUTEROL 0.5-2.5 MG/3 ML AMPUL NEB SCH ×2 (08:38→20:28)
[2018-04-05] MEDS: METOPROLOL TARTRATE 25 MG TABLET PEG SCH ×2 (09:52→23:16)
[2018-04-05] MEDS: LISINOPRIL 5 MG TABLET PEG SCH (09:53)
[2018-04-05] MEDS: FAMOTIDINE 20 MG TABLET NG SCH ×2 (09:53→23:16)
[2018-04-05] MEDS: SPIRONOLACTONE 25 MG TABLET PEG SCH (09:53)
[2018-04-05] MEDS: FUROSEMIDE 40 MG TABLET PEG SCH (09:54)
[2018-04-05] MEDS: POTASSIUM CHLORIDE 20 MEQ/15 ML UDCUP PO SCH (09:56)
[2018-04-05] MEDS: MULTIVITAMIN ORAL LIQUID 60 ML NG SCH (09:57)
[2018-04-05] MEDS: NORMAL SALINE 10 ML SDV (SCHEDULED) IV SCH ×2 (09:57→23:16)
[2018-04-05] MEDS: TAMSULOSIN HCL 0.4 MG CAP.SR.24H PO SCH (17:51)
--- NOTE | 2018-04-05 20:12 | PDOC PROGRESS REPORT ---
Subjective Progress Note for:: 04/05/18 Subjective:: The patient is a 57-year-old female with a past medical history of CAD, [place] x2, hypertension, hyperlipidemia, COPD, DM 2, GERD, bipolar, depression, schizoaffective disorder who initially presented to the emergency department on 02/26/18 with a psychiatric complaint and spent 6 days on psych hold in the emergency department pending placement. Patient then began complaining of chest discomfort and so was referred to the hospitalist service for admission and management on 03/04/18. Cardiac workup revealed LVEF 30%. The patient was seen this morning on rounds. She is resting comfortably in bed. She is awake but disoriented to time, place and person. spice room worker is supposed to visit [facility] for PASSR evaluation. Hopefully patient can transfer to intermediate care today or tomorrow. Reason For Visit: HYPERNATREMIA, URINARY RETENTION Physical Exam Vital Signs: Temp Pulse Resp BP Pulse Ox 98.6 F 71 16 109/62 95 04/05/18 15:34 04/05/18 15:34 04/05/18 15:34 04/05/18 15:34 04/05/18 15:34 Intake & Output 04/04/18 04/05/18 04/06/18 06:59 06:59 06:59 Intake Total 1902 1163 965 Output Total 5539 2300 1500 Balance -173 -1137 -535 Weight 79 kg 79.9 kg General appearance: PRESENT: no acute distress, well-developed, well-nourished Eye exam: PRESENT: conjunctiva pink, PERRLA Mouth exam: PRESENT: moist Teeth exam: PRESENT: poor dentation Neck exam: PRESENT: full ROM Respiratory exam: PRESENT: clear to auscultation ailyn, symmetrical, unlabored GI/Abdominal exam: PRESENT: soft, other - PEG TUBE/ENTERAL FEEDING. ABSENT: distended Rectal exam: PRESENT: deferred Extremities exam: ABSENT: full ROM, pedal edema Musculoskeletal exam: PRESENT: normal inspection. ABSENT: full ROM Neurological exam: PRESENT: awake. ABSENT: oriented to person, oriented to p lace, oriented to time, oriented to situation Skin exam: PRESENT: dry, normal color Results Laboratory Results: 04/05/18 06:45 04/05/18 06:45 04/05/18 04/05/18 06:45 06:45 WBC 7.6 RBC 3.77 Hgb 9.8 L Hct 29.7 L MCV 79 L MCH 26.0 L MCHC 32.9 RDW 24.0 H Plt Count 218 Sodium 132.3 L Potassium 4.5 Chloride 96 L Carbon Dioxide 26 Anion Gap 10 BUN 18 Creatinine 0.70 Est GFR ( Amer) > 60 Est GFR (Non-Af Amer) > 60 Glucose 148 H Calcium 8.5 Phosphorus 5.2 H Magnesium 1.7 Total Bilirubin 0.7 AST 23 ALT 8 L Alkaline Phosphatase 175 H Total Protein 6.6 Albumin 2.7 L 04/03/18 12:30 Neck - Right Side Abscess Gram Stain - Final 04/03/18 12:30 Neck - Right Side Abscess Wound Culture - Final Prevotella Species Anaerococcus (Peptostrep) Sp. Group B Beta Streptococcus 02/28/18 03/01/18 03/01/18 21:25 01:45 08:51 CK-MB (CK-2) Troponin I 0.069 0.063 0.068 NT-Pro-B Natriuret Pep 03/04/18 03/04/18 03/04/18 11:43 15:30 20:48 CK-MB (CK-2) 2.03 Troponin I 0.055 0.048 0.044 NT-Pro-B Natriuret Pep 03/05/18 04/01/18 04/02/18 03:10 10:25 09:11 CK-MB (CK-2) Troponin I 0.063 NT-Pro-B Natriuret Pep 4640 H 4990 H 04/03/18 04/04/18 05:00 05:40 CK-MB (CK-2) Troponin I NT-Pro-B Natriuret Pep 5580 H 4390 H Impressions: Head CT 03/01/18 18:50 IMPRESSION: MILD CHRONIC CHANGES OF ATROPHY AND MICROVASCULAR ISCHEMIA. 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 NO ACUTE PROCESS. EVIDENCE OF ACUTE STROKE: NO. KUB X-Ray 03/19/18 10:09 IMPRESSION: NASOGASTRIC TUBE IN THE STOMACH. NO RADIOGRAPHIC EVIDENCE FOR ACUTE ABDOMINAL DISEASE. Cervical Spine MRI 03/20/18 00:00 IMPRESSION: NORMAL MRI CERVICAL SPINE. Head MRI 03/20/18 00:00 IMPRESSION: ATROPHY AND CHRONIC MICRO-VASCULAR ISCHEMIC CHANGES. FOCAL AREAS OF ABNORMAL WHITE MATTER SIGNAL IN THE POSTERIOR RIGHT PARIETAL LOBE CORRESPONDING TO SIMILAR FINDINGS ON PRIOR CT, CONSISTENT WITH OLD INFARCT. NO ACUTE FINDINGS. EVIDENCE OF ACUTE STROKE: NO. Chest X-Ray 03/27/18 00:00 IMPRESSION: 1. The tip of the feeding tube projects over the region of the distal stomach. 2. Mild volume loss in the left inferior hemithorax possibly due to a combination of pleural fluid, atelectasis or inflammatory changes. 3. Stable mild cardiomegaly and prior median sternotomy. Guidance Fluoroscopy 03/29/18 00:00 IMPRESSION: SUCCESSFUL PLACEMENT OF A 5 FR DUAL LUMEN 40 CM PICC IN THE LEFT BASILIC VEIN. Interventional Vascular Procedure 03/29/18 00:00 IMPRESSION: SUCCESSFUL PLACEMENT OF A 5 FR DUAL LUMEN 40 CM PICC IN THE LEFT BASILIC VEIN. PICC Line Insertion 03/29/18 0000 IMPRESSION: SUCCESSFUL PLACEMENT OF A 5 FR DUAL LUMEN 40 CM PICC IN THE LEFT BASILIC VEIN. Hip/Pelvis X-Ray 03/30/18 00:00 IMPRESSION: NEGATIVE STUDY OF THE RIGHT HIP. NO RADIOGRAPHIC EVIDENCE OF ACUTE INJURY. Abdomen/Pelvis CT 04/01/18 00:00 IMPRESSION: 1. Small volume ascites not significantly changed from prior study. 2. Moderate left pleural effusion and small right pleural effusion new from p rior study. Minimal left basilar atelectasis. 3. Diffuse subcutaneous edema. 4. G-tube has been added since prior study and appears to be in satisfactory position. Status: Imported from PACS Assessment & Plan - Diagnosis (1) Acute encephalopathy Is this a current diagnosis for this admission?: Yes Plan: Plateaued Awake, makes eye contact and able to track. Intermittently follows simple commands (gross motor movement) but cannot perform complex tasks. Intermittently answer questions appropriately with 2-3 word phrases. Unclear etiology; likely multifactorial - hypernatremia, dehydration, hypertension, underlying mental health disorders (bipolar, schizoaffective disorder), and possibly hospital psychosis. (2) Ischemic cardiomyopathy EF 30% Is this a current diagnosis for this admission?: Yes Plan: Echocardiogram revealed LVEF of 30% with severe global hypokinesis of the left ventricle, paradoxical septal wall motion consistent with right ventricular volume overload. She appears compensated without exacerbation at this time. Continue medication regiment; lisinopril, metoprolol, daily aspirin, atorvastatin (3) Hypernatremia Is this a current diagnosis for this admission?: Yes Plan: Resolved (4) Hypokalemia Is this a current diagnosis for this admission?: Yes Plan: Resolved (5) Somnolence Is this a current diagnosis for this admission?: Yes Plan: Resolved; patient now is awake and intermittently responsive; today she is answering simple questions and following one-step simple commands. (6) HTN (hypertension) Qualifiers: Hypertension type: essential hypertension Qualified Code(s): I10 - Essential (primary) hypertension Is this a current diagnosis for this admission?: Yes Plan: Resolved. Normotensive Continue lisinopril 5 mg daily and metoprolol 12.5 mg twice daily. p.o. spironolactone and furosemide. Clonidine patch on hold. (7) Dehydration Is this a current diagnosis for this admission?: Yes Plan: Resolved. Secondary to poor p.o. intake and evidenced by hypernatremia and KIRSTEN. Tube feeds and free water flushes. (8) Bipolar 1 disorder, depressed Is this a current diagnosis for this admission?: Yes Plan: Subtherapeutic (03/27/2018) Depakote 500 mg twice daily. (9) Urine retention Is this a current diagnosis for this admission?: Yes Plan: Multiple bladder scans > 350mL Osorio in place Continue on PO flomax recommend urology f/u (10) UTI (urinary tract infection) Qualifiers: Urinary tract infection type: acute cystitis Hematuria presence: with hematuria Qualified Code(s): N30.01 - Acute cystitis with hematuria Is this a current diagnosis for this admission?: Yes Plan: Resolved. Completed course of antibiotics for staph aureus (11) Abscess Is this a current diagnosis for this admission?: Yes Plan: Patient has had a 3 cm round abscess to her right supraclavicular area; present on arrival and previously draining. Now s/p I&D by surgery with packing in place. Awaiting C&S from microbiology (12) Bacteremia Is this a current diagnosis for this admission?: Yes Plan: MSSA identified in blood cultures 03/18/2018. Repeat blood cultures have no growth (03/21/2018). CT of the abdomen and pelvis was negative for abdominal or pelvic abscess. CBC is unremarkable, sed rate and CRP are mildly elevated. However, patient did have a PICC line placed yesterday and a PEG tube placed 3 days prior. CRP stable; likely mildly elevated due to recent PICC and PEG placement and I&D to right clavicle. Repeat echocardiogram to assess for vegetations. Limited study obtained; negative for vegetations. Completed 2-week course of Ancef. (13) Musculoskeletal pain of right lower extremity Is this a current diagnosis for this admission?: Yes Plan: Appears improved; the patient has been noted to extend her right leg without grimacing today. She had been keeping the extremity flexed and externally rotated and was noted to grimace with passive range of motion, no noted pain with palpation. No ecchymosis or known trauma. 2 view right hip x-ray negative for acute findings. Tylenol or Motrin as needed for pain. Lidoderm patch. - Time Time Spent with patient: 15-24 minutes Medications reviewed and adjusted accordingly: Yes Anticipated discharge: SNF - Inpatient Certification Based on my medical assessment, after consideration of the patient's comorbidities, presenting symptoms, or acuity I expect that the services needed warrant INPATIENT care.: Yes I certify that my determination is in accordance with my understanding of Medicare's requirements for reasonable and necessary INPATIENT services [42 CFR 412.3e].: Yes Medical Necessity: Risk of Complication if Not Cared For in Hospital
[2018-04-05] MEDS: ASPIRIN 81 MG TABLET, CHEWABLE NG SCH (23:16)
[2018-04-05] MEDS: ATORVASTATIN CALCIUM 20 MG TABLET NG SCH (23:16)
[2018-04-06] MEDS: VALPROATE SODIUM SYRUP 250 MG/5 ML UDCUP PO SCH (05:00)
[2018-04-06] MEDS: IPRATROPIUM/ALBUTEROL 0.5-2.5 MG/3 ML AMPUL NEB SCH (08:28)
[2018-04-06] MEDS: POTASSIUM CHLORIDE 20 MEQ/15 ML UDCUP PO SCH (09:53)
[2018-04-06] MEDS: METOPROLOL TARTRATE 25 MG TABLET PEG SCH (09:53)
[2018-04-06] MEDS: SPIRONOLACTONE 25 MG TABLET PEG SCH (09:53)
[2018-04-06] MEDS: LISINOPRIL 5 MG TABLET PEG SCH (09:54)
[2018-04-06] MEDS: FUROSEMIDE 40 MG TABLET PEG SCH (09:54)
[2018-04-06] MEDS: FAMOTIDINE 20 MG TABLET NG SCH (09:54)
[2018-04-06] MEDS: MULTIVITAMIN ORAL LIQUID 60 ML NG SCH (09:54)
[2018-04-06] MEDS: NORMAL SALINE 10 ML SDV (SCHEDULED) IV SCH (09:55)
[2018-04-06] MEDS: ACETAMINOPHEN SOLN 325 MG/10.15 ML UDCUP NG PRN (10:10)
[2018-04-06] MEDS: INSULIN LISPRO 100 UNIT/ML 3 ML VIAL SUBCUT PRN (12:15)
[2018-04-06 16:06] VITALS: BP 110/70
== END 2018-04-06 17:05 | DRG 641 ==
LOC: ER 10:30 → EH 03-04 16:03 → 3N 03-04 18:31 → OBSVTOIN 03-14 13:53 → 3N 03-16 14:28 → 4S 03-17 21:11 → 4W 03-21 03:20
PROVIDERS: ADMIT Internal Medicine; ATTEND Internal Medicine
PROC: 0DH63UZ Insertion of Feeding Device into Stomach, Percutaneous Approach (ICD-10-PCS; principal; 2018-03-28 09:00)
PROC: 02HV33Z Insertion of Infusion Device into Superior Vena Cava, Percutaneous Approach (ICD-10-PCS; 2018-03-29)
PROC: B518ZZA Fluoroscopy of Superior Vena Cava, Guidance (ICD-10-PCS; 2018-03-29)
PROC: B548ZZA Ultrasonography of Superior Vena Cava, Guidance (ICD-10-PCS; 2018-03-29)
PROC: 0H94XZZ Drainage of Neck Skin, External Approach (ICD-10-PCS; 2018-04-03)
PROC: 3E0234Z Introduction of Serum, Toxoid and Vaccine into Muscle, Percutaneous Approach (ICD-10-PCS; 2018-04-06)
DX: E87.0 Hyperosmolality and hypernatremia (principal); R44.3 Hallucinations, unspecified; I42.9 Cardiomyopathy, unspecified; G93.40 Encephalopathy, unspecified; N39.0 Urinary tract infection, site not specified; R07.89 Other chest pain; I25.10 Atherosclerotic heart disease of native coronary artery without angina pectoris; R40.0 Somnolence; J44.9 Chronic obstructive pulmonary disease, unspecified; R41.82 Altered mental status, unspecified; F32.9 Major depressive disorder, single episode, unspecified; E03.9 Hypothyroidism, unspecified; E86.0 Dehydration; R33.9 Retention of urine, unspecified; F20.9 Schizophrenia, unspecified; I10 Essential (primary) hypertension; E87.6 Hypokalemia; K21.9 Gastro-esophageal reflux disease without esophagitis; E11.8 Type 2 diabetes mellitus with unspecified complications; R41.9 Unspecified symptoms and signs involving cognitive functions and awareness; R47.02 Dysphasia; M79.18 Myalgia, other site; B95.61 Methicillin susceptible Staphylococcus aureus infection as the cause of diseases classified elsewhere; L72.8 Other follicular cysts of the skin and subcutaneous tissue; F17.210 Nicotine dependence, cigarettes, uncomplicated; I25.2 Old myocardial infarction; Z23 Encounter for immunization; Z91.14 Patient's other noncompliance with medication regimen
CPT/HCPCS: 00731; 36415; 36569; 36600; 43246; 70450; 70551; 71045; 72141; 74018; 74176; 76937; 77001; 78452; 80048; 80053; 80074; 80076; 80164; 80202; 80307; 81001; 82140; 82533; 82553; 82565; 82803; 82962; 83036; 83690; 83735; 83880; 84100; 84132; 84443; 84484; 85025; 85027; 85652; 86140; 86592; 86701; 87040; 87045; 87070; 87075; 87077; 87086; 87088; 87177; 87186; 87205; 87493; 90471; 90686; 93005; 93010; 93017; 93306; 94640; 96374; 96375; 96376; 99285; A9500; G0008; G0378; J0360; J0690; J0696; J1642; J1650; J1815; J1885; J1940; J2060; J2250; J2405; J2543; J2704; J2785; J3370; J3480; J3490; J7030; J7060; J7620; Q9969

== ENCOUNTER 2018-07-27 11:01 | Inpatient (IN) | payer MEDICAID ==
[2018-07-27] MEDS ORDERED: ASPIRIN 81 MG TABLET, CHEWABLE PO ONE (11:05)
[2018-07-27 11:30] LABS: ABSOLUTE EOSINOPHILS # (AUTO) 0.2 10^3/uL (0.0-0.6); ABSOLUTE LYMPHOCYTES (AUTO) 1.8 10^3/uL (0.5-4.7); ABSOLUTE MONOCYTES (AUTO) 0.8 10^3/uL (0.1-1.4); ABSOLUTE NEUT (AUTO) 5.1 10^3/uL (1.7-8.2); BASOPHILS % (AUTO) 0.6 % (0-2); EOSINOPHILS % (AUTO) 2.7 % (0-6); HEMATOCRIT 40.3 % (36.0-47.0); HEMOGLOBIN 13.4 g/dL (12.0-15.5); LYMPHOCYTES % (AUTO) 22.3 % (13-45); MEAN CORPUSCULAR HEMOGLOBIN 27.8 pg (27.0-33.4); MEAN CORPUSCULAR HGB CONC 33.3 g/dL (32.0-36.0); MEAN CORPUSCULAR VOLUME 83 fl (80-97); MONOCYTES % (AUTO) 9.9 % (3-13); PLATELET COUNT 161 10^3/uL (150-450); RED BLOOD COUNT 4.84 10^6/uL (3.72-5.28); RED CELL DISTRIBUTION WIDTH 21.1 % (11.5-14.0); SEGMENTED NEUTROPHILS % (AUTO) 64.5 % (42-78); TOTAL CELLS COUNTED % (AUTO) 100 %
[2018-07-27 11:56] LABS: ALANINE AMINOTRANSFERASE 21 U/L (9-52); ALBUMIN 4.2 g/dL (3.5-5.0); ALKALINE PHOSPHATASE 142 U/L (38-126); ANION GAP 15 (5-19); ASPARTATE AMINO TRANSFERASE 32 U/L (14-36); BILIRUBIN,DIRECT 0.4 mg/dL (0.0-0.4); BILIRUBIN,TOTAL 0.4 mg/dL (0.2-1.3); BLOOD UREA NITROGEN 67 mg/dL (7-20); CALCIUM 10.9 mg/dL (8.4-10.2); CARBON DIOXIDE 20 mmol/L (22-30); CHLORIDE 103 mmol/L (98-107); CREATINE KINASE 25 U/L (30-135); GLUCOSE 145 mg/dL (75-110); SODIUM 137.6 mmol/L (137-145); TOTAL PROTEIN 8.8 g/dL (6.3-8.2)
[2018-07-27 12:07] LABS: CREATINE KINASE MB 1.94 ng/mL (<4.55); TROPONIN I 0.019 ng/mL
--- NOTE | 2018-07-27 12:14 | RADIOLOGY REPORT (SQ) ---
EXAM DESCRIPTION: CHEST SINGLE VIEW COMPLETED DATE/TIME: 07/27/2018 11:43 am REASON FOR STUDY: bed 13 cp COMPARISON: EXAM PARAMETERS: NUMBER OF VIEWS: One view. TECHNIQUE: Single frontal radiographic view of the chest acquired. RADIATION DOSE: NA LIMITATIONS: None. FINDINGS: LUNGS AND PLEURA: Unchanged linear left basilar opacities likely scarring. No new airspac e disease, pleural effusion or pneumothorax. MEDIASTINUM AND HILAR STRUCTURES: No discrete mass. HEART AND VASCULAR STRUCTURES: Status post CABG. Aortic atherosclerosis. BONES: No acute findings. HARDWARE: CABG hardware. Prior cholecystectomy. OTHER: No other significant finding. IMPRESSION: Persistent linear left basilar opacities likely scarring. No evidence of acute cardiopu lmonary process. TECHNICAL DOCUMENTATION: JOB ID: [id number] [employer]- All Rights Reserved Reading location - IP/workstation name: [email or web address]
[2018-07-27] MEDS ORDERED: NORMAL SALINE 1000 ML 1,000 ML IV ONE (15:03)
[2018-07-27] MEDS ORDERED: SODIUM BICARBONATE 8.4% INJ 50 MEQ/50 ML DISP.SYRIN IV ONE (15:04)
[2018-07-27] MEDS ORDERED: NITROGLYCERIN 0.4 MG/TAB 25 TAB/BOTTLE SL PRN (15:04)
[2018-07-27] MEDS ORDERED: INSULIN REG, HUMAN 100 UNIT/ML 3 ML VIAL (PYX) IV ONE (15:04)
[2018-07-27] MEDS ORDERED: DEXTROSE 50%-WATER 25 GM/50 ML DISP.SYRIN IV ONE (15:04)
[2018-07-27] MEDS ORDERED: CALCIUM GLUCONATE 1000 MG/10 ML INJ IV ONE (15:05)
[2018-07-27] MEDS ORDERED: INSULIN REG, HUMAN 100 UNIT/ML 3 ML VIAL (PYX) ONE (15:36)
--- NOTE | 2018-07-27 16:43 | ER Document Report ---
ED General - General Chief Complaint: Chest Pain Stated Complaint: CHEST PAIN Time Seen by Provider: 07/27/18 14:06 Notes: Patient is a 58-year-old female with history of CAD, hypertension and diabetes mellitus that presents to the emergency department for chief complaint of chest pain, shortness of breath. Patient reports that she was at her doctor's office today, when she started feeling anxious and started having some midsternal chest pain. She is currently residing in a nursing facility, for rehab, she is currently being tube fed in addition to some oral intake, she states she is felt some degree of reflux of the tube feeds when she is getting felt sometimes she feels it in her throat. That does cause her some discomfort. The pain is nonradiating, but does have some nausea associated as mentioned some shortness of breath. She states that her oral intake has been decreased recently because she is on a thickened liquid diet, she does have supplemental nutrition through PEG tube as well. She is on blood pressure medications, and states she has been getting them as directed by the half-way. Past Medical History: Diabetes mellitus, hypertension, CAD, anxiety Past Surgical History: PEG tube, CABG, stents Social History: Former smoker, denies current alcohol or drug use. Currently resides at a assisted facility. Family History: Reviewed and noncontributory for presenting illness Allergies: Reviewed, see documented allergy list. REVIEW OF SYSTEMS: Other than noted above, the 12 point review of systems was reviewed with the patient and were negative, all pertinent findings are included in the HPI. PHYSICAL EXAMINATION: Vital signs reviewed, nursing noted reviewed. GENERAL: Elderly female, appears anxious on exam. HEAD: Atraumatic, normocephalic. EYES: Eyes appear normal, extraocular movements intact, sclera anicteric, conjunctiva are normal. PERRLA ENT: nares patent, oropharynx clear without exudates. Moist mucous membranes. NECK: Normal range of motion, supple without lymphadenopathy LUNGS: Breath sounds clear to auscultation bilaterally and equal. No wheezes rales or rhonchi. HEART: Regular rate and rhythm without murmurs ABDOMEN: Soft, nontender, normoactive bowel sounds. No rebound, guarding, or rigidity. No masses appreciated. PEG tube in place, no signs of infection EXTREMITIES: Nontender, good range of motion, no pitting or edema. NEUROLOGICAL: No focal neurological deficits. Moves all extremities spontaneously Motor and sensory grossly intact on exam. PSYCH: Appears anxious on exam, answers questions appropriately however, occasionally tearful SKIN: Warm, Dry, normal turgor, no rashes or lesions noted on exposed skin TRAVEL OUTSIDE OF THE [place] IN LAST 30 DAYS: No - Related Data Allergies/Adverse Reactions: haloperidol [From Haldol] Allergy (Unknown, Verified 03/07/18 13:36) Past Medical History - Social History Smoking Status: Former Smoker Family History: Reviewed & Not Pertinent, CAD - Extensive heart disease in both parents and brother with brother dying from complications of cardiac stent placement - Past Medical History Cardiac Medical History: Reports: Hx Coronary Artery Disease, Hx Heart Attack - x2, Hx Hypercholesterolemia, Hx Hypertension Pulmonary Medical History: Reports: Hx Bronchitis, Hx COPD Neurological Medical History: Reports: Hx Cerebrovascular Accident Endocrine Medical History: Reports: Hx Diabetes Mellitus Type 2 Renal/ Medical History: Reports: Hx Kidney Stones. Denies: Hx Peritoneal Dialysis GI Medical History: Reports: Hx Gastroesophageal Reflux Disease Psychiatric Medical History: Reports: Hx Bipolar Disorder, Hx Depression, Hx Schizoaffective Disorder, Hx Schizophrenia Past Surgical History: Reports: Hx Cardiac Catheterization, Hx Cardiac Surgery - stents, CABG 09/2016, Hx Cholecystectomy, Hx Coronary Artery Bypass Graft - September 2016, Hx Coronary Stent - x2, Hx Open Heart Surgery, Hx Thyroid Surgery, Hx Tonsillectomy, Hx Tubal Ligation, Hx Urinary Tract Surgery, Hx Vascular Surgery - Immunizations Hx Diphtheria, Pertussis, Tetanus Vaccination: Yes Hx Pneumococcal Vaccination: 11/29/16 Physical Exam - Vital signs Vitals: Resp 14 07/27/18 11:21 Course - Re-evaluation Re-evalutation: Patient seen and examined vital signs reviewed. Laboratory data and imaging were ordered as appropriate for the patient's presenting symptoms and complaint, with consideration of any critical or life threatening conditions that may be associated with their obtained history and exam as noted above. Patient was treated with IV fluids, resulting blood work demonstrated acute kidney injury, with hyperkalemia, with a potassium of 6, and her creatinine was 1.9 baseline appears to be around 1.1, patient was given calcium gluconate, insulin, D50, sodium bicarbonate to shift her potassium Results were reviewed when available and demonstrated to repeat troponins, were negative and unchanged, EKG was unchanged from prior, patient's chest pain after she was more calm, had a essentially resolved, she did receive nitroglycerin which did seem to help as well. The patient was re-evaluated and was stable, initially I admitted this patient to 1 of our hospitalist, however patient wanted transfer to [facility], however there is no bed availability though not taken patient request transfers, I discussed with the patient after this phone call with the transfer center, and she was agreeable to be admitted to our hospital for treatment for her KIRSTEN, with hyperkalemia. Results were discussed with the patient at this point after careful consideration I feel that that patient should be admitted to the hospital. This was discussed with the patient that it is in the best interest for their care to be admitted for further evaluation and management. Patient agreed with this plan of care. A call was placed to the admitted physician, Dr. Waters who graciously accepted the patient onto their service. *Note is created using voice recognition software and may contain spelling, syntax or grammatical errors. Laboratory 07/27/18 07/27/18 07/27/18 11:15 11:15 11:15 WBC 8.0 RBC 4.84 Hgb 13.4 Hct 40.3 MCV 83 MCH 27.8 MCHC 33.3 RDW 21.1 H Plt Count 161 Seg Neutrophils % 64.5 Lymphocytes % 22.3 Monocytes % 9.9 Eosinophils % 2.7 Basophils % 0.6 Absolute Neutrophils 5.1 Absolute Lymphocytes 1.8 Absolute Monocytes 0.8 Absolute Eosinophils 0.2 Absolute Basophils 0.0 Sodium 137.6 Potassium 6.0 H* Chloride 103 Carbon Dioxide 20 L Anion Gap 15 BUN 67 H Creatinine 1.91 H Est GFR ( Amer) 32 L Est GFR (Non-Af Amer) 27 L Glucose 145 H POC Glucose Calcium 10.9 H Total Bilirubin 0.4 Direct Bilirubin 0.4 Neonat Total Bilirubin Not Reportable Neonat Direct Bilirubin Not Reportable Neonat Indirect Bili Not Reportable AST 32 ALT 21 Alkaline Phosphatase 142 H Creatine Kinase 25 L CK-MB (CK-2) 1.94 Troponin I 0.019 Total Protein 8.8 H Albumin 4.2 07/27/18 07/27/18 15:36 16:51 WBC RBC Hgb Hct MCV MCH MCHC RDW Plt Count Seg Neutrophils % Lymphocytes % Monocytes % Eosinophils % Basophils % Absolute Neutrophils Absolute Lymphocytes Absolute Monocytes Absolute Eosinophils Absolute Basophils Sodium Potassium Chloride Carbon Dioxide Anion Gap BUN Creatinine Est GFR ( Amer) Est GFR (Non-Af Amer) Glucose POC Glucose 93 Calcium Total Bilirubin Direct Bilirubin Neonat Total Bilirubin Neonat Direct Bilirubin Neonat Indirect Bili AST ALT Alkaline Phosphatase Creatine Kinase CK-MB (CK-2) Troponin I 0.017 Total Protein Albumin Chest X-Ray 07/27/18 11:06 IMPRESSION: Persistent linear left basilar opacities likely scarring. No evidence of acute cardiopulmonary process. - Vital Signs Vital signs: Temp Pulse Resp BP Pulse Ox 97.6 F 67 14 125/75 100 07/28/18 02:55 07/28/18 12:22 07/28/18 12:22 07/28/18 02:55 07/28/18 12:23 - Laboratory Result Diagrams: 07/28/18 05:30 07/28/18 05:30 Laboratory results interpreted by me: 07/27/18 07/27/18 11:15 11:15 RDW 21.1 H Potassium 6.0 H* Carbon Dioxide 20 L BUN 67 H Creatinine 1.91 H Est GFR ( Amer) 32 L Est GFR (Non-Af Amer) 27 L Glucose 145 H Calcium 10.9 H Alkaline Phosphatase 142 H Creatine Kinase 25 L Total Protein 8.8 H - EKG Interpretation by Me Additional EKG results interpreted by me: EKG demonstrates sinus rhythm with a ventricular rate of 77 bpm, left axis deviation, QTC 440 ms, no ST elevation, this is compared with a prior EKG from 03/04/2018, without significant change. Critical Care Note - Critical Care Note Total time excluding time spent on procedures (mins): 36 Comments: Critical care time 36 minutes exclusive from separate billable procedures for a patient requiring complex medical decision making, and high potential for clinical deterioration. Patient with hyperkalemia requiring treatment and admission to the hospital. Time spent obtaining history from patient or surrogate, discussions with consultants, development of treatment plan with patient or surrogate, evaluation of patient's response to treatment, examination of patient, ordering and performing treatments and interventions, ordering and review of laboratory studies, re-evaluation of patient's condition, ordering and review of radiographic studies and review of old charts Discharge - Discharge Clinical Impression: Acute renal failure, Hyperkalemia Condition: Stable Disposition: ADMITTED INPATIENT Admitting Provider: Evelin (Hospitalist) Unit Admitted: Telemetry
[2018-07-27] MEDS ORDERED: LORAZEPAM 1 MG TABLET PO ONE (19:44)
[2018-07-27] MEDS ORDERED: ONDANSETRON HCL INJ/PF 4 MG/2 ML SDV IV PRN (20:57)
[2018-07-27] MEDS ORDERED: MAG HYDROX/AL HYDROX/SIMETH SUSP 30 ML UDCUP PO PRN (20:57)
[2018-07-27] MEDS ORDERED: MAGNESIUM HYDROXIDE SUSP 30 ML UDCUP PO PRN (20:57)
[2018-07-27] MEDS ORDERED: TEMAZEPAM 15 MG CAPSULE PO PRN (20:57)
[2018-07-27] MEDS ORDERED: 1/2 NORMAL SALINE 1,000 ML IV PRN (20:57)
--- NOTE | 2018-07-27 20:57 | PDOC H&P ---
History of Present Illness Admission Date/PCP: 07/27/18 17:04 TREVON SKAGGS PA-C Patient complains of: Chest pain History of Present Illness: CHARLEY SHERMAN is a 58 year old female who presented from nursing rehab with a complaint of acutely worsened chronic chest pain. She admits a more than 4-year history of continuous chest pain in the substernal region without radiation. She describes the pain as a manual sitting on her chest and also endorses that the pain is of variable intensity sometimes being mild to moderate other times being severe. Her chest pain was accompanied by mild transient nausea with no vomiting. 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 The transfer team complied with her request and she was diverted to the [facility] ER. Her chest pain continued throughout her emergency room course and is present at the time of my evaluation at a mild to moderate intensity, several hours after her emergency room admission. She has not identified any aggravating or ameliorating factors for her chronic chest pain. In the emergency room her cardiac enzymes and EKG ruled out evidence of acute cardiac ischemia or injury. She was found to have an elevated serum creatinine and a potassium of 6.0. She was subsequently admitted to telemetry for further evaluation and treatment. Past Medical History Cardiac Medical History: Reports: Coronary Artery Disease, Myocardial Infarction - x2, Hyperlipidema, Hypertension, Other - Enlarged heart Denies: Atrial Fibrillation, Congestive Heart Failure, DVT, Peripheral Vascular Disease, Pulmonary Embolism Pulmonary Medical History: Reports: Bronchitis, Chronic Obstructive Pulmonary D isease (COPD) Denies: Asthma, Pneumonia, Respiratory Failure, Tuberculosis EENT Medical History: Denies: Cataracts, Ears - Hearing aids Neurological Medical History: Denies: Hemorrhagic CVA, Ischemic CVA, Multiple Sclerosis, Seizures Endocrine Medical History: Reports: Diabetes Mellitus Type 2 Denies: Diabetes Mellitus Type 1, Hyperthyroidism, Hypothyroidism, Obesity Renal/ Medical History: Reports: Other - Acute renal failure episodes Denies: Chronic Kidney Disease, Nephrolithiasis Malignancy Medical History: Reports: None GI Medical History: Reports: Gastroesophageal Reflux Disease Denies: Cirrhosis, Crohn's Disease, Hepatitis, Ulcerative Colitis Musculoskeltal Medical History: Denies: Arthritis, Gout Skin Medical History: Denies: Eczema, Psoriasis Psychiatric Medical History: Reports: Bipolar Disorder, Depression, General Anxiety Disorder, Schizoaffective Disorder, Tobacco Dependency Denies: Alcohol Dependency, Substance Abuse Traumatic Medical History: Reports: None Hematology: Denies: Anemia, Bleeding Tendencies Infectious Medical History: Reports: None Past Surgical History Past Surgical History: Reports: Cardiac Catheterization, Cholecystectomy, Coronary Artery Bypass Graft - September 2016, Coronary Stent - x2, Tonsillectomy, Tubal Ligation, Vascular Surgery, Other - PEG tube placement Social History Information Source: Patient Lives with: [facility] Smoking Status: Former Smoker Frequency of Alcohol Use: None Hx Recreational Drug Use: No Drugs: None Hx Prescription Drug Abuse: No - Advance Directive Resuscitation Status: Full Code Surrogate healthcare decision maker:: Evelin Tucker Family History Family History: CAD - Extensive early age heart disease history in her immediate family, DM, Hyperlipidemia, Hypertension. denies: Arthritis, Thyroid Disfunction Parental Family History Reviewed: Yes Children Family History Reviewed: No Sibling(s) Family History Reviewed.: Yes Medication/Allergy Allergies/Adverse Reactions: haloperidol [From Haldol] Allergy (Unknown, Verified 03/07/18 13:36) Review of Systems Constitutional: ABSENT: anorexia, chills, fever(s) Eyes: ABSENT: visual disturbances, other - Eye pain Ears: ABSENT: hearing changes, other - Ear pain Nose, Mouth, and Throat: ABSENT: mouth pain, sore throat Cardiovascular: PRESENT: as per HPI, chest pain. ABSENT: dyspnea on exertion, edema, orthropnea, palpitations Respiratory: ABSENT: cough, dyspnea Gastrointestinal: PRESENT: nausea. ABSENT: abdominal pain, constipation, diarrhea, vomiting Musculoskeletal: PRESENT: other - Decreased range of motion of the right knee. ABSENT: back pain, deformity, joint swelling, muscle weakness Integumentary: ABSENT: pruritus, rash Neurological: ABSENT: confusion, convulsions, focal weakness, memory loss, syncope Psychiatric: ABSENT: anxiety, depression Endocrine: ABSENT: cold intolerance, heat intolerance Hematologic/Lymphatic: ABSENT: easy bleeding, easy bruising Physical Exam Vital Signs: Temp Pulse Resp BP Pulse Ox 97.8 F 16 164/97 H 84 L 07/27/18 18:01 07/27/18 19:01 07/27/18 19:00 07/27/18 19:01 Intake & Output 07/25/18 07/26/18 07/27/18 23:59 23:59 23:59 Intake Total 1000 Balance 1000 General appearance: PRESENT: no acute distress, cooperative, well-developed Head exam: PRESENT: atraumatic, normocephalic Eye exam: ABSENT: conjunctival injection, scleral icterus Ear exam: ABSENT: bleeding, drainage Mouth exam: PRESENT: dry mucosa, neck supple Neck exam: ABSENT: JVD, thyromegaly, tracheal deviation Respiratory exam: PRESENT: clear to auscultation ailyn, symmetrical, unlabored Cardiovascular exam: PRESENT: RRR. ABSENT: clicks, gallop, rubs Pulses: PRESENT: normal radial pulses, normal dorsalis pedis pul Vascular exam: PRESENT: normal capillary refill. ABSENT: pallor GI/Abdominal exam: PRESENT: normal bowel sounds, soft, other - PEG tube present in left upper abdomen Rectal exam: PRESENT: deferred Extremities exam: ABSENT: joint swelling, pedal edema Musculoskeletal exam: ABSENT: deformity, dislocation, full ROM - Decreased range of motion right knee Neurological exam: PRESENT: alert, oriented to person, oriented to place, o riented to time, oriented to situation, CN II-XII grossly intact. ABSENT: motor sensory deficit Psychiatric exam: PRESENT: appropriate affect, normal mood Skin exam: PRESENT: dry, intact, jaundice, rash, urticaria, warm Results Laboratory Results: 07/27/18 11:15 07/27/18 07/27/18 11:15 11:15 WBC 8.0 RBC 4.84 Hgb 13.4 Hct 40.3 MCV 83 MCH 27.8 MCHC 33.3 RDW 21.1 H Plt Count 161 Seg Neutrophils % 64.5 Lymphocytes % 22.3 Monocytes % 9.9 Eosinophils % 2.7 Basophils % 0.6 Absolute Neutrophils 5.1 Absolute Lymphocytes 1.8 Absolute Monocytes 0.8 Absolute Eosinophils 0.2 Absolute Basophils 0.0 Sodium 137.6 Potassium 6.0 H* Chloride 103 Carbon Dioxide 20 L Anion Gap 15 BUN 67 H Creatinine 1.91 H Est GFR ( Amer) 32 L Est GFR (Non-Af Amer) 27 L Glucose 145 H Calcium 10.9 H Total Bilirubin 0.4 AST 32 ALT 21 Alkaline Phosphatase 142 H Total Protein 8.8 H Albumin 4.2 07/27/18 07/27/18 07/27/18 11:15 11:15 15:36 Creatine Kinase 25 L CK-MB (CK-2) 1.94 Troponin I 0.019 0.017 Impressions: Chest X-Ray 07/27/18 11:06 IMPRESSION: Persistent linear left basilar opacities likely scarring. No evidence of acute cardiopulmonary process. Assessment and Plan - Diagnosis (1) Chest pain Qualifiers: Chest pain type: other chest pain Qualified Code(s): R07.89 - Other chest pain; R07.8 - Other chest pain Is this a current diagnosis for this admission?: Yes Plan: Chronic chest pain is noted. Serial cardiac enzymes and EKG evaluations will be obtained as appropriate. Attempts at analgesia for her chronic pain will be made as appropriate using Nubain 10 mg IV every 3 hours as needed for chest pain. (2) Acute renal failure Qualifiers: Acute renal failure type: unspecified Qualified Code(s): N17.9 - Acute kidney failure, unspecified Is this a current diagnosis for this admission?: Yes Plan: Patient has acute kidney injury and will be treated with IV fluid hydration/intravascular volume replacement and close observation with daily metabolic profiles and magnesium levels. (3) Hyperkalemia Is this a current diagnosis for this admission?: Yes Plan: Patient was treated aggressively with a hyperkalemia profile in the emergency room. Her potassium level be rechecked on a regular basis. Continued efforts at reduction of her serum potassium will be made with adjustment of her medications and avoidance of medications which may increase her serum potassium level. (4) Dehydration Is this a current diagnosis for this admission?: Yes Plan: Patient be treated with IV fluid and she will be monitored closely with daily CBCs as well as metabolic profiles and magnesium levels. (5) Diabetes mellitus type 2 in nonobese Is this a current diagnosis for this admission?: Yes Plan: Patient be maintained on a diabetic diet whether given orally or via PEG tube. She will receive fluid supplementation both IV and by PEG tube with careful consideration for her diabetes and current electrolyte imbalance. Nutrition services will be consulted for their input and balancing and oral and enteral feeding diet. Additionally PT, OT and speech therapy will be consulted to evaluate the patient and provide input to the care team. - Time Time Spent with patient: 25-34 minutes Medications reviewed and adjusted accordingly: Yes Anticipated discharge: SNF - Inpatient Certification Based on my medical assessment, after consideration of the patient's comorbidities, presenting symptoms, or acuity I expect that the services needed warrant INPATIENT care.: Yes I certify that my determination is in accordance with my understanding of Medicare's requirements for reasonable and necessary INPATIENT services [42 CFR 412.3e].: Yes Medical Necessity: Significant Comorbidiites Make Outpatient Treatment Too Risky, Need Close Monitoring Due to Risk of Patient Decompensation, Need For IV Fluids, Need For Continuous Telemetry Monitoring, Risk of Complication if Not Cared For in Hospital
[2018-07-27] MEDS ORDERED: DEXTROSE 50%-WATER 25 GM/50 ML DISP.SYRIN IV PRN ×2 (21:13)
[2018-07-27] MEDS ORDERED: DEXTROSE 40% GEL 15 GM TUBE PO PRN ×2 (21:13)
[2018-07-27] MEDS ORDERED: GLUCAGON,HUMAN RECOMB 1 MG INJ IM PRN (21:13)
[2018-07-27] MEDS ORDERED: ACETAMINOPHEN 325 MG TABLET PO PRN (21:14)
[2018-07-27] MEDS ORDERED: NALBUPHINE HCL INJ 10 MG/1 ML AMPULE IV PRN (21:14)
[2018-07-27] MEDS ORDERED: HYDRALAZINE HCL INJ/PF 20 MG/1 ML SDV IV PRN (21:14)
[2018-07-27] MEDS ORDERED: LEVALBUTEROL HCL NEB 0.63 MG/3 ML AMPUL NEB PRN (21:14)
[2018-07-27] MEDS: SUCRALFATE 1 GM TABLET PO SCH (21:56)
[2018-07-27] MEDS: FAMOTIDINE 20 MG TABLET PO SCH (21:56)
[2018-07-27] MEDS: METOCLOPRAMIDE HCL 10 MG TABLET PO SCH (21:56)
[2018-07-27 22:08] LABS: ANION GAP 14 (5-19); BLOOD UREA NITROGEN 57 mg/dL (7-20); CALCIUM 10.7 mg/dL (8.4-10.2); CARBON DIOXIDE 23 mmol/L (22-30); CHLORIDE 103 mmol/L (98-107); GLUCOSE 134 mg/dL (75-110); SODIUM 139.7 mmol/L (137-145)
[2018-07-27 22:15] LABS: POTASSIUM 4.9 mmol/L (3.6-5.0)
--- NOTE | 2018-07-27 22:19 | EKG REPORT ---
SEVERITY:- ABNORMAL ECG - SINUS RHYTHM OLD INFERIOR INFARCT WITH APICAL LATERAL WALL INVOLVEMENT. CONSIDER ANTERIOR INFARCT : Confirmed by: Smita Luque MD 27-Jul-2018 22:18:17
[2018-07-27] MEDS: 1/2 NORMAL SALINE 1,000 ML IV PRN (22:22)
[2018-07-27 23:24] LABS: APPEARANCE,URINE CLOUDY; BILIRUBIN,URINE NEGATIVE (NEGATIVE); COLOR,URINE YELLOW; GLUCOSE, URINE NEGATIVE (NEGATIVE); KETONES,URINE NEGATIVE (NEGATIVE); LEUKOCYTE ESTERASE,URINE TRACE (NEGATIVE); NITRITE,URINE NEGATIVE (NEGATIVE); PROTEIN,URINE NEGATIVE (NEGATIVE); URINE SPECIFIC GRAVITY 1.012; UROBILINOGEN,URINE NEGATIVE mg/dL (<2.0)
[2018-07-27 23:28] LABS: CREATINE KINASE MB 2.23 ng/mL (<4.55); TROPONIN I 0.032 ng/mL
[2018-07-28] MEDS: 1/2 NORMAL SALINE 1,000 ML IV PRN (04:22)
[2018-07-28 05:50] LABS: HEMATOCRIT 35.5 % (36.0-47.0); HEMOGLOBIN 11.7 g/dL (12.0-15.5); MEAN CORPUSCULAR HEMOGLOBIN 28.1 pg (27.0-33.4); MEAN CORPUSCULAR VOLUME 85 fl (80-97); PLATELET COUNT 180 10^3/uL (150-450); RED BLOOD COUNT 4.17 10^6/uL (3.72-5.28); RED CELL DISTRIBUTION WIDTH 20.7 % (11.5-14.0); WHITE BLOOD COUNT 6.9 10^3/uL (4.0-10.5)
[2018-07-28 06:24] LABS: CREATINE KINASE MB 2.3 ng/mL (<4.55); TROPONIN I 0.034 ng/mL
[2018-07-28 06:25] LABS: ANION GAP 13 (5-19); BLOOD UREA NITROGEN 52 mg/dL (7-20); CALCIUM 10.6 mg/dL (8.4-10.2); CARBON DIOXIDE 21 mmol/L (22-30); CHLORIDE 108 mmol/L (98-107); GLUCOSE 98 mg/dL (75-110); PHOSPHORUS 3.8 mg/dL (2.5-4.5); POTASSIUM 4.8 mmol/L (3.6-5.0); SODIUM 141.9 mmol/L (137-145); TRIGLYCERIDES 93 mg/dL (<150)
[2018-07-28 06:36] LABS: DIRECT LDL 81 mg/dL (<100)
[2018-07-28 06:38] LABS: FREE T3 3.7 pg/mL (2.77-5.27); FREE T4 (FREE THYROXINE) 0.91 ng/dL (0.78-2.19)
[2018-07-28 06:51] LABS: THYROID STIMULATING HORMONE 10.5 uIU/mL (0.47-4.68)
[2018-07-28] MEDS ORDERED: ACETAMINOPHEN 325 MG TABLET PO PRN (07:55)
[2018-07-28] MEDS ORDERED: ONDANSETRON HCL INJ/PF 4 MG/2 ML SDV IV PRN (08:00)
[2018-07-28] MEDS ORDERED: MAGNESIUM HYDROXIDE SUSP 30 ML UDCUP PO PRN (08:15)
[2018-07-28] MEDS ORDERED: TRAMADOL HCL 50 MG TABLET PO PRN (08:15)
[2018-07-28] MEDS ORDERED: (PENDING PHARMACY ID) (Nitroglycerin [Nitrostat] 0.3 MG) SL PRN (08:15)
[2018-07-28] MEDS: FAMOTIDINE 20 MG TABLET PO SCH ×4 (08:19→21:47)
[2018-07-28] MEDS: METOCLOPRAMIDE HCL 10 MG TABLET PO SCH ×4 (08:20→21:47)
[2018-07-28] MEDS: SUCRALFATE 1 GM TABLET PO SCH ×4 (08:20→21:47)
[2018-07-28] MEDS: FONDAPARINUX SODIUM INJ 2.5 MG/0.5 ML DISP.SYRIN SUBCUT SCH (08:20)
[2018-07-28] MEDS: VALPROATE SODIUM SYRUP 250 MG/5 ML UDCUP PO SCH ×2 (09:49→21:46)
[2018-07-28] MEDS: POLYETHYLENE GLYCOL 3350 POWDER 17 GM/1 PACKET PO SCH (09:49)
[2018-07-28] MEDS: DOCUSATE SODIUM 100 MG/10 ML UDC PEG SCH ×2 (09:49→18:53)
[2018-07-28] MEDS: KETOCONAZOLE 2% SHAMPOO 120 ML BOTTLE TP SCH (09:50)
[2018-07-28] MEDS: HYDROCORTISONE 1% OINTMENT 28.35 GM TP SCH ×2 (09:50→19:01)
[2018-07-28] MEDS: MUPIROCIN 2% OINTMENT 22 GM TP SCH ×2 (09:51→18:54)
[2018-07-28] MEDS: QUETIAPINE FUMARATE 25 MG TABLET PO SCH ×2 (09:51→18:53)
[2018-07-28] MEDS: METOPROLOL TARTRATE 25 MG TABLET PO SCH (09:52)
[2018-07-28] MEDS: ATORVASTATIN CALCIUM 10 MG TABLET PO SCH (09:52)
[2018-07-28] MEDS: ALLOPURINOL 100 MG TABLET PO SCH (09:52)
[2018-07-28] MEDS: BUSPIRONE HCL 10 MG TABLET PO SCH (09:54)
[2018-07-28] MEDS ORDERED: FERROUS FUM PO SCH (10:00)
[2018-07-28] MEDS ORDERED: (PENDING PHARMACY ID) (Quetiapine Fumarate [Seroquel] 50 MG) PO SCH (10:00)
[2018-07-28] MEDS ORDERED: MULTIVIT MINERALS PO SCH (10:00)
[2018-07-28] MEDS ORDERED: [UNRECOGNIZED DRUG - OTHER] PO SCH (10:00)
[2018-07-28] MEDS ORDERED: (PENDING PHARMACY ID) (Buspirone Hcl [Buspar 5 Mg Tablet] 5 MG) PO SCH (10:00)
[2018-07-28] MEDS ORDERED: ENTERAL NUTRITION FORMULA PO SCH (10:00)
[2018-07-28] MEDS: MULTIVITS W-MIN/IRON SOLN 60 ML PO SCH (11:15)
[2018-07-28] MEDS: INSULIN REG, HUMAN 100 UNIT/ML 3 ML VIAL (PYX) SUBCUT PRN ×2 (11:38→16:29)
[2018-07-28 13:13] LABS: CREATINE KINASE MB 2.39 ng/mL (<4.55); TROPONIN I 0.024 ng/mL
--- NOTE | 2018-07-28 16:17 | EKG REPORT ---
SEVERITY:- ABNORMAL ECG - SINUS RHYTHM MULTIPLE VENTRICULAR PREMATURE COMPLEXES INFERIOR INFARCT, AGE INDETERMINATE CONSIDER ANTERIOR INFARCT : Confirmed by: Smita Luque MD 28-Jul-2018 16:16:26
--- NOTE | 2018-07-28 16:23 | PDOC PROGRESS REPORT ---
Subjective Progress Note for:: 07/28/18 Subjective:: 58-year-old female came to the emergency room with complaints of chest pains which was chronic also found to be in KIRSTEN and hyperkalemia. Kidney function is improving. No acute events in the last 24 hours. Afebrile. Reason For Visit: ACUTE KIDNEY INJURY,HYPERKALEMIA Physical Exam Vital Signs: Temp Pulse Resp BP Pulse Ox 97.6 F 67 14 125/75 100 07/28/18 02:55 07/28/18 12:22 07/28/18 12:22 07/28/18 02:55 07/28/18 12:23 Intake & Output 07/27/18 07/28/18 07/29/18 06:59 06:59 06:59 Intake Total 1999 520 Balance 1999 520 Weight 79.9 kg General appearance: PRESENT: no acute distress Head exam: PRESENT: atraumatic Eye exam: PRESENT: PERRLA Mouth exam: PRESENT: moist, tongue midline Teeth exam: PRESENT: poor dentation Neck exam: ABSENT: carotid bruit, JVD, lymphadenopathy, thyromegaly Respiratory exam: PRESENT: decreased breath sounds Cardiovascular exam: PRESENT: RRR. ABSENT: diastolic murmur, rubs, systolic murmur GI/Abdominal exam: PRESENT: normal bowel sounds, soft. ABSENT: distended, guar ding, mass, organolmegaly, rebound, tenderness Rectal exam: PRESENT: deferred Extremities exam: PRESENT: full ROM. ABSENT: calf tenderness, clubbing, pedal edema Neurological exam: PRESENT: alert, awake, oriented to person, oriented to place, oriented to time, oriented to situation, CN II-XII grossly intact. ABSENT: motor sensory deficit Psychiatric exam: PRESENT: appropriate affect, normal mood. ABSENT: homicidal ideation, suicidal ideation Results Laboratory Results: 07/28/18 05:30 07/28/18 05:30 07/27/18 07/27/18 07/28/18 21:37 22:50 05:30 WBC 6.9 RBC 4.17 Hgb 11.7 L Hct 35.5 L MCV 85 MCH 28.1 MCHC 33.0 RDW 20.7 H Plt Count 180 Sodium 139.7 Potassium 4.9 D Chloride 103 Carbon Dioxide 23 Anion Gap 14 BUN 57 H Creatinine 1.80 H Est GFR ( Amer) 35 L Est GFR (Non-Af Amer) 29 L Glucose 134 H Calcium 10.7 H Phosphorus Magnesium Triglycerides Cholesterol LDL Cholesterol Direct VLDL Cholesterol HDL Cholesterol TSH Free T4 Free T3 pg/mL Urine Color YELLOW Urine Appearance CLOUDY Urine pH 8.0 Ur Specific Mentor 1.012 Urine Protein NEGATIVE Urine Glucose (UA) NEGATIVE Urine Ketones NEGATIVE Urine Blood NEGATIVE Urine Nitrite NEGATIVE Ur Leukocyte Esterase TRACE H Urine WBC (Auto) 8 Urine RBC (Auto) 11 07/28/18 07/28/18 05:30 05:30 WBC RBC Hgb Hct MCV MCH MCHC RDW Plt Count Sodium 141.9 Potassium 4.8 Chloride 108 H Carbon Dioxide 21 L Anion Gap 13 BUN 52 H Creatinine 1.83 H Est GFR ( Amer) 34 L Est GFR (Non-Af Amer) 28 L Glucose 98 Calcium 10.6 H Phosphorus 3.8 Magnesium 2.0 Triglycerides 93 Cholesterol 153.40 LDL Cholesterol Direct 81 VLDL Cholesterol 19.0 HDL Cholesterol 43 TSH 10.50 H Free T4 0.91 Free T3 pg/mL 3.70 Urine Color Urine Appearance Urine pH Ur Specific Mentor Urine Protein Urine Glucose (UA) Urine Ketones Urine Blood Urine Nitrite Ur Leukocyte Esterase Urine WBC (Auto) Urine RBC (Auto) 07/27/18 07/27/18 07/27/18 11:15 11:15 15:36 Creatine Kinase 25 L CK-MB (CK-2) 1.94 Troponin I 0.019 0.017 07/27/18 07/27/18 07/28/18 21:37 22:55 05:30 Creatine Kinase 22 L 24 L CK-MB (CK-2) 2.23 Troponin I 0.032 07/28/18 07/28/18 07/28/18 05:30 12:07 12:07 Creatine Kinase 20 L CK-MB (CK-2) 2.30 2.39 Troponin I 0.034 0.024 Impressions: Chest X-Ray 07/27/18 11:06 IMPRESSION: Persistent linear left basilar opacities likely scarring. No evidence of acute cardiopulmonary process. Assessment and Plan - Diagnosis (1) Acute renal failure Qualifiers: Acute renal failure type: unspecified Qualified Code(s): N17.9 - Acute kidney failure, unspecified Is this a current diagnosis for this admission?: Yes Plan: Patient has acute kidney injury and will be treated with IV fluid hydration/intravascular volume replacement and close observation with daily metabolic profiles and magnesium levels. 07/[id number]-ludo-old female admitted for acute kidney injury creatinine was 1.83 today slightly improved her baseline creatinine is around 1.1 today plan is to continue the present management recheck the labs tomorrow. (2) Diabetes mellitus type 2 in nonobese Is this a current diagnosis for this admission?: Yes Plan: Patient be maintained on a diabetic diet whether given orally or via PEG tube. She will receive fluid supplementation both IV and by PEG tube with careful consideration for her diabetes and current electrolyte imbalance. Nutrition services will be consulted for their input and balancing and oral and enteral feeding diet. Additionally PT, OT and speech therapy will be consulted to evaluate the patient and provide input to the care team. 07/28/2018-patient has history of type 2 diabetes mellitus and she is receiving diabetic diet by mouth. On insulin sliding scale. Dietary consult was requested. hemoglobin A1c is 6.9. Latest blood sugar is 175. (3) Hyperkalemia Is this a current diagnosis for this admission?: Yes Plan: Patient was treated aggressively with a hyperkalemia profile in the emergency room. Her potassium level be rechecked on a regular basis. Continued efforts at reduction of her serum potassium will be made with adjustment of her medicati ons and avoidance of medications which may increase her serum potassium level. 07/[id number]-vijn-old female admitted with hyperkalemia potassium level this morning is 4.8 hyperkalemia resolved. (4) Chest pain Qualifiers: Chest pain type: other chest pain Qualified Code(s): R07.89 - Other chest pain; R07.8 - Other chest pain Is this a current diagnosis for this admission?: Yes Plan: Chronic chest pain is noted. Serial cardiac enzymes and EKG evaluations will be obtained as appropriate. Attempts at analgesia for her chronic pain will be made as appropriate using Nubain 10 mg IV every 3 hours as needed for chest pain. 07/28/2018-patient has chronic chest pains. EKGs cardiac enzymes are negative. Presently on Nubain 10 mg IV every 3 hours PRN for pain. Chest pain most likely musculoskeletal in my opinion.
[2018-07-28 16:33] LABS: ABSOLUTE EOSINOPHILS # (AUTO) 0.1 10^3/uL (0.0-0.6); ABSOLUTE LYMPHOCYTES (AUTO) 2.5 10^3/uL (0.5-4.7); ABSOLUTE MONOCYTES (AUTO) 0.7 10^3/uL (0.1-1.4); ABSOLUTE NEUT (AUTO) 3.6 10^3/uL (1.7-8.2); BASOPHILS % (AUTO) 0.5 % (0-2); EOSINOPHILS % (AUTO) 1.6 % (0-6); HEMATOCRIT 35.5 % (36.0-47.0); HEMOGLOBIN 11.9 g/dL (12.0-15.5); LYMPHOCYTES % (AUTO) 35.8 % (13-45); MEAN CORPUSCULAR HEMOGLOBIN 28.3 pg (27.0-33.4); MEAN CORPUSCULAR HGB CONC 33.4 g/dL (32.0-36.0); MEAN CORPUSCULAR VOLUME 85 fl (80-97); MONOCYTES % (AUTO) 10.4 % (3-13); PLATELET COUNT 183 10^3/uL (150-450); SEGMENTED NEUTROPHILS % (AUTO) 51.7 % (42-78); TOTAL CELLS COUNTED % (AUTO) 100 %
[2018-07-28 17:07] LABS: ALANINE AMINOTRANSFERASE 15 U/L (9-52); ALBUMIN 3.7 g/dL (3.5-5.0); ALKALINE PHOSPHATASE 110 U/L (38-126); ANION GAP 13 (5-19); ASPARTATE AMINO TRANSFERASE 30 U/L (14-36); BILIRUBIN,DIRECT 0.3 mg/dL (0.0-0.4); BILIRUBIN,TOTAL 0.3 mg/dL (0.2-1.3); BLOOD UREA NITROGEN 43 mg/dL (7-20); CALCIUM 10.2 mg/dL (8.4-10.2); CARBON DIOXIDE 21 mmol/L (22-30); CHLORIDE 106 mmol/L (98-107); CREATINE KINASE 25 U/L (30-135); GLUCOSE 143 mg/dL (75-110); POTASSIUM 4.9 mmol/L (3.6-5.0); SODIUM 140.1 mmol/L (137-145)
[2018-07-28 17:17] LABS: CREATINE KINASE MB 2.32 ng/mL (<4.55); TROPONIN I 0.023 ng/mL
[2018-07-28] MEDS: ASPIRIN 81 MG TABLET, CHEWABLE PO SCH (21:47)
[2018-07-28 23:19] LABS: CREATINE KINASE MB 1.97 ng/mL (<4.55); TROPONIN I 0.026 ng/mL
[2018-07-29 06:52] LABS: HEMATOCRIT 37.2 % (36.0-47.0); HEMOGLOBIN 12.3 g/dL (12.0-15.5); MEAN CORPUSCULAR HEMOGLOBIN 28.2 pg (27.0-33.4); MEAN CORPUSCULAR VOLUME 85 fl (80-97); PLATELET COUNT 180 10^3/uL (150-450); RED BLOOD COUNT 4.36 10^6/uL (3.72-5.28); RED CELL DISTRIBUTION WIDTH 21.6 % (11.5-14.0); WHITE BLOOD COUNT 6.2 10^3/uL (4.0-10.5)
[2018-07-29 07:08] LABS: ANION GAP 12 (5-19); BLOOD UREA NITROGEN 38 mg/dL (7-20); CARBON DIOXIDE 23 mmol/L (22-30); CHLORIDE 107 mmol/L (98-107); GLUCOSE 94 mg/dL (75-110); POTASSIUM 4.7 mmol/L (3.6-5.0); SODIUM 141.6 mmol/L (137-145)
[2018-07-29] MEDS: FAMOTIDINE 20 MG TABLET PO SCH ×4 (08:39→22:00)
[2018-07-29] MEDS: SUCRALFATE 1 GM TABLET PO SCH ×4 (08:40→22:01)
[2018-07-29] MEDS: FONDAPARINUX SODIUM INJ 2.5 MG/0.5 ML DISP.SYRIN SUBCUT SCH (08:40)
[2018-07-29] MEDS: METOCLOPRAMIDE HCL 10 MG TABLET PO SCH ×4 (08:41→22:01)
[2018-07-29] MEDS: HYDROCORTISONE 1% OINTMENT 28.35 GM TP SCH ×2 (10:00→18:00)
[2018-07-29] MEDS: METOPROLOL TARTRATE 25 MG TABLET PO SCH (10:42)
[2018-07-29] MEDS: ALLOPURINOL 100 MG TABLET PO SCH (10:44)
[2018-07-29] MEDS: BUSPIRONE HCL 10 MG TABLET PO SCH (10:44)
[2018-07-29] MEDS: POLYETHYLENE GLYCOL 3350 POWDER 17 GM/1 PACKET PO SCH (10:46)
[2018-07-29] MEDS: ATORVASTATIN CALCIUM 10 MG TABLET PO SCH (10:46)
[2018-07-29] MEDS: MULTIVITS W-MIN/IRON SOLN 60 ML PO SCH (10:46)
[2018-07-29] MEDS: VALPROATE SODIUM SYRUP 250 MG/5 ML UDCUP PO SCH ×2 (10:46→22:00)
[2018-07-29] MEDS: MUPIROCIN 2% OINTMENT 22 GM TP SCH ×2 (10:47→17:56)
[2018-07-29] MEDS: DOCUSATE SODIUM 100 MG/10 ML UDC PEG SCH ×2 (10:48→17:53)
[2018-07-29] MEDS: QUETIAPINE FUMARATE 25 MG TABLET PO SCH ×2 (10:49→17:53)
[2018-07-29] MEDS: INSULIN REG, HUMAN 100 UNIT/ML 3 ML VIAL (PYX) SUBCUT PRN (12:11)
--- NOTE | 2018-07-29 12:42 | PDOC TRANSFER SUMMARY ---
General - Admit/Disc Date/PCP Admission Date/Primary Care Provider: 07/27/18 17:02 TREVON SKAGGS PA-C Discharge Date: 07/29/18 - Discharge Diagnosis (1) Acute renal failure Is this a current diagnosis for this admission?: Yes Summary: Patient has acute kidney injury and will be treated with IV fluid hydration/intravascular volume replacement and close observation with daily metabolic profiles and magnesium levels. 07/[id number]-uyhr-old female admitted for acute kidney injury creatinine was 1.83 today slightly improved her baseline creatinine is around 1.1 today plan is to continue the present management recheck the labs tomorrow. 07/29/[id number]-qxjk-old female admitted with acute kidney injury admission creatinine is 1.83 and it was improved to 1.64. Acute kidney injury most likely secondary to poor oral intake which was resolved. (2) Diabetes mellitus type 2 in nonobese Is this a current diagnosis for this admission?: Yes Summary: Patient be maintained on a diabetic diet whether given orally or via PEG tube. She will receive fluid supplementation both IV and by PEG tube with careful consideration for her diabetes and current electrolyte imbalance. Nutrition services will be consulted for their input and balancing and oral and enteral feeding diet. Additionally PT, OT and speech therapy will be consulted to evaluate the patient and provide input to the care team. 07/28/2018-patient has history of type 2 diabetes mellitus and she is receiving diabetic diet by mouth. On insulin sliding scale. Dietary consult was requested. hemoglobin A1c is 6.9. Latest blood sugar is 175. 07/29/2018-patient has history of type 2 diabetes mellitus on diabetic diet she is also has a PEG tube. Able to tolerate the oral diet. Presently insulin sliding scale. Latest blood sugar is 212. Plan is to continue the present management she is going back to [facility] today. (3) Hyperkalemia Is this a current diagnosis for this admission?: Yes Summary: Patient was treated aggressively with a hyperkalemia profile in the emergency room. Her potassium level be rechecked on a regular basis. Continued efforts at reduction of her serum potassium will be made with adjustment of her medications and avoidance of medications which may increase her serum potassium level. 07/[id number]-[id number]-old female admitted with hyperkalemia potassium level this morning is 4.8 hyperkalemia resolved. 07/29/[id number]-gmyq-old female admitted with hyperkalemia with creatinine of more than 5 and latest creatinine is 2.7. Hyperkalemia is resolved. (4) Chest pain Is this a current diagnosis for this admission?: Yes Summary: Chronic chest pain is noted. Serial cardiac enzymes and EKG evaluations will be obtained as appropriate. Attempts at analgesia for her chronic pain will be made as appropriate using Nubain 10 mg IV every 3 hours as needed for chest pa in. 07/28/2018-patient has chronic chest pains. EKGs cardiac enzymes are negative. Presently on Nubain 10 mg IV every 3 hours PRN for pain. Chest pain most likely musculoskeletal in my opinion. 07/29/2018-patient has history of chronic chest pains for the last several months. Most likely musculoskeletal and may be related to anxiety attacks. Cardiac enzymes and troponins are negative during the hospital stay. - Additional Information Resuscitation Status: Full Code Home Medications: Acetaminophen [Tylenol] 650 mg PO Q6HP PRN 07/27/18 Allopurinol [Zyloprim 100 mg Tablet] 100 mg PO DAILY 07/27/18 Aspirin [Aspirin 81 mg Chewable Tablet] 81 mg PO QHS 07/27/18 Atorvastatin Calcium [Lipitor 10 mg Tablet] 10 mg PO DAILY 07/27/18 Buspirone HCl [Buspar 5 mg Tablet] 5 mg PO DAILY 07/27/18 Clonidine [Catapres-Tts 1 (0.1 mg/24 Hr) Transderm Patch] 1 patch TD TU@1000 07/27/18 Doxycycline Hyclate [Vibramycin 100 mg Tablet] 100 mg PO BID 07/27/18 Famotidine [Pepcid] 20 mg PO BID 07/27/18 Ipratropium/Albuterol Sulfate [Duoneb 3 ml Ampul] 3 ml NEB RTQ6HP PRN 07/27/18 Lisinopril [Prinivil 5 mg Tablet] 5 mg PO DAILY 07/27/18 Magnesium Hydroxide [Milk of Magnesia 30 ml Udcup] 30 ml PO Q2HP PRN 07/27/18 Metoprolol Tartrate [Lopressor 25 mg Tablet] 12.5 mg PO DAILY 07/27/18 Multivit-Minerals/Ferrous Fum [Multivitamin Liquid] 5 ml PO DAILY 07/27/18 Mupirocin [Bactroban 2% Ointment 22 gm] 1 applic TP BID 07/27/18 Nitroglycerin [Nitrostat] 0.3 mg SL Q5MP PRN 07/27/18 Nut.tx.gluc Intol,Lf,Soy/Fiber [Diabetisource AC 1.2 Sabino Liq] 240 ml PO DAILY 07/27/18 Polyethylene Glycol 3350 [Miralax Powder 17 gm/Packet] 1 packet PO DAILY 07/27/18 Potassium Chloride [Potassium Chloride 20 Meq Packet] 20 meq PO DAILY 07/27/18 Quetiapine Fumarate [Seroquel] 50 mg PO BID 07/27/18 Sulfamethoxazole/Trimethoprim [Bactrim Ds Tablet] 1 each PO BID 07/27/18 Tramadol HCl [Ultram 50 mg Tablet] 50 mg PO Q6HP PRN 07/27/18 Valproate Sodium [Depakene Syrup 250 Mg/5 Ml Udcup] 500 mg PO Q12 07/27/18 History of Present Illness Admission Date/PCP: 07/27/18 17:02 TREVON SKAGGS PA-C History of Present Illness: CHARLEY SHERMAN is a 58 year old female 58 year old female who presented from nursing rehab with a complaint of acutely worsened chronic chest pain. She admits a more than 4-year history of continuous chest pain in the substernal region without radiation. She describes the pain as a manual sitting on her chest and also endorses that the pain is of variable intensity sometimes being mild to moderate other times being severe. Her chest pain was accompanied by mild transient nausea with no vomiting. 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 The transfer team complied with her request and she was diverted to the [facility] ER. Her chest pain continued throughout her emergency room course and is present at the time of my evaluation at a mild to moderate intensity, several hours after her emergency room admission. She has not identified any aggravating or ameliorating factors for her chronic chest pain. In the emergency room her cardiac enzymes and EKG ruled out evidence of acute cardiac ischemia or injury. She was found to have an elevated serum creatinine and a potassium of 6.0. She was subsequently admitted to telemetry for further evaluation and treatment. Hospital Course Hospital Course: 07/29/2018-this elderly female from [facility] came with chest pains. These are chronic. Cardiac enzymes troponins are negative. Initially patient requested for transfer to [facility] but unfortunately there is no beds available. Ultimately patient was admitted here for acute coronary syndrome was ruled out and acute kidney injury is resolved hyperkalemia resolved. No complications during the hospital stay. Physical Exam Vital Signs: Temp Pulse Resp BP Pulse Ox 97.7 F 87 14 116/74 97 07/29/18 03:44 07/29/18 09:18 07/29/18 09:18 07/29/18 03:44 07/29/18 09:18 Intake & Output 07/28/18 07/29/18 07/30/18 06:59 06:59 06:59 Intake Total 1999 964 Balance 1999 964 Weight 78.2 kg General appearance: PRESENT: no acute distress Head exam: PRESENT: atraumatic Eye exam: PRESENT: PERRLA Mouth exam: PRESENT: moist, tongue midline Teeth exam: PRESENT: poor dentation Neck exam: ABSENT: carotid bruit, JVD, lymphadenopathy, thyromegaly Respiratory exam: PRESENT: decreased breath sounds Cardiovascular exam: PRESENT: RRR. ABSENT: diastolic murmur, rubs, systolic murmur GI/Abdominal exam: PRESENT: normal bowel sounds, soft. ABSENT: distended, guarding, mass, organolmegaly, rebound, tenderness Rectal exam: PRESENT: deferred Extremities exam: PRESENT: full ROM. ABSENT: calf tenderness, clubbing, pedal edema Neurological exam: PRESENT: alert, awake, oriented to person, oriented to place, oriented to time, oriented to situation, CN II-XII grossly intact. ABSENT: motor sensory deficit Psychiatric exam: PRESENT: appropriate affect, normal mood. ABSENT: homicidal ideation, suicidal ideation Results Laboratory Results: 07/29/18 06:30 07/29/18 06:30 07/28/18 07/28/18 07/29/18 16:20 16:20 06:30 WBC 7.0 6.2 RBC 4.20 4.36 Hgb 11.9 L 12.3 Hct 35.5 L 37.2 MCV 85 85 MCH 28.3 28.2 MCHC 33.4 33.0 RDW 21.0 H 21.6 H Plt Count 183 180 Seg Neutrophils % 51.7 Lymphocytes % 35.8 Monocytes % 10.4 Eosinophils % 1.6 Basophils % 0.5 Absolute Neutrophils 3.6 Absolute Lymphocytes 2.5 Absolute Monocytes 0.7 Absolute Eosinophils 0.1 Absolute Basophils 0.0 Sodium 140.1 Potassium 4.9 Chloride 106 Carbon Dioxide 21 L Anion Gap 13 BUN 43 H Creatinine 1.60 H Est GFR ( Amer) 40 L Est GFR (Non-Af Amer) 33 L Glucose 143 H Calcium 10.2 Magnesium Total Bilirubin 0.3 AST 30 ALT 15 Alkaline Phosphatase 110 Total Protein 8.0 Albumin 3.7 07/29/18 06:30 WBC RBC Hgb Hct MCV MCH MCHC RDW Plt Count Seg Neutrophils % Lymphocytes % Monocytes % Eosinophils % Basophils % Absolute Neutrophils Absolute Lymphocytes Absolute Monocytes Absolute Eosinophils Absolute Basophils Sodium 141.6 Potassium 4.7 Chloride 107 Carbon Dioxide 23 Anion Gap 12 BUN 38 H Creatinine 1.64 H Est GFR ( Amer) 39 L Est GFR (Non-Af Amer) 32 L Glucose 94 Calcium 11.0 H Magnesium 1.9 Total Bilirubin AST ALT Alkaline Phosphatase Total Protein Albumin 07/27/18 07/27/18 07/27/18 11:15 11:15 15:36 Creatine Kinase 25 L CK-MB (CK-2) 1.94 Troponin I 0.019 0.017 07/27/18 07/27/18 07/28/18 21:37 22:55 05:30 Creatine Kinase 22 L 24 L CK-MB (CK-2) 2.23 Troponin I 0.032 07/28/18 07/28/18 07/28/18 05:30 12:07 12:07 Creatine Kinase 20 L CK-MB (CK-2) 2.30 2.39 Troponin I 0.034 0.024 07/28/18 07/28/18 07/28/18 16:20 16:20 22:40 Creatine Kinase 25 L < 20 L CK-MB (CK-2) 2.32 Troponin I 0.023 07/28/18 22:40 Creatine Kinase CK-MB (CK-2) 1.97 Troponin I 0.026 Impressions: Chest X-Ray 07/27/18 11:06 IMPRESSION: Persistent linear left basilar opacities likely scarring. No evidence of acute cardiopulmonary process. Transfer Plan - Disposition Transfer Plan: She is going to [facility] today. - Time Spent with Patient Time spent with patient: Greater than 30 Minutes Qualifiers - * PATIENT BEING DISCHARGED WITH ANY OF THE FOLLOWING DIAGNOSIS: No VTE patient discharged on overlapping Therapy?: No Acute Heart Failure Is this a Heart Failure Patient?: No Plan Time Spent: Greater than 30 Minutes
[2018-07-29] MEDS: KETOCONAZOLE 2% SHAMPOO 120 ML BOTTLE TP SCH (13:51)
[2018-07-29 20:32] VITALS: BP 111/60
[2018-07-29] MEDS: ASPIRIN 81 MG TABLET, CHEWABLE PO SCH (22:00)
== END 2018-07-29 23:45 | DRG 684 ==
LOC: ER 11:01 → EH 17:02 → UNDOADMIN 17:04 → 4S 22:10
PROVIDERS: ADMIT Emergency Medicine; ATTEND Emergency Medicine
DX: N17.9 Acute kidney failure, unspecified (principal); E87.5 Hyperkalemia; E11.8 Type 2 diabetes mellitus with unspecified complications; R07.9 Chest pain, unspecified; I25.10 Atherosclerotic heart disease of native coronary artery without angina pectoris; I10 Essential (primary) hypertension; E86.0 Dehydration; F31.9 Bipolar disorder, unspecified; F25.9 Schizoaffective disorder, unspecified; Z93.1 Gastrostomy status; Z86.73 Personal history of transient ischemic attack (TIA), and cerebral infarction without residual deficits
CPT/HCPCS: 36415; 71045; 80048; 80053; 80061; 81001; 82550; 82553; 82962; 83036; 83735; 84100; 84439; 84443; 84481; 84484; 85025; 85027; 93005; 93010; 96374; 96375; 99291; J0610; J1652; J1815; J3490; J7030

== ENCOUNTER 2018-08-01 02:15 | Emergency (ER) | payer MEDICAID ==
[2018-08-01 05:08] LABS: ABSOLUTE LYMPHOCYTES (AUTO) 1.4 10^3/uL (0.5-4.7); ABSOLUTE MONOCYTES (AUTO) 0.4 10^3/uL (0.1-1.4); ABSOLUTE NEUT (AUTO) 6.7 10^3/uL (1.7-8.2); BASOPHILS % (AUTO) 0.6 % (0-2); EOSINOPHILS % (AUTO) 0.3 % (0-6); HEMATOCRIT 40.2 % (36.0-47.0); HEMOGLOBIN 13.5 g/dL (12.0-15.5); LYMPHOCYTES % (AUTO) 16.4 % (13-45); MEAN CORPUSCULAR HEMOGLOBIN 28.4 pg (27.0-33.4); MEAN CORPUSCULAR HGB CONC 33.6 g/dL (32.0-36.0); MEAN CORPUSCULAR VOLUME 85 fl (80-97); MONOCYTES % (AUTO) 4.7 % (3-13); PLATELET COUNT 241 10^3/uL (150-450); RED BLOOD COUNT 4.75 10^6/uL (3.72-5.28); RED CELL DISTRIBUTION WIDTH 21.6 % (11.5-14.0); TOTAL CELLS COUNTED % (AUTO) 100 %; WHITE BLOOD COUNT 8.6 10^3/uL (4.0-10.5)
[2018-08-01 05:33] LABS: AMORPHOUS SEDIMENT,URINE TRACE /HPF; APPEARANCE,URINE CLOUDY; BILIRUBIN,URINE NEGATIVE (NEGATIVE); COLOR,URINE YELLOW; GLUCOSE, URINE >=500 mg/dL (NEGATIVE); KETONES,URINE 20 mg/dL (NEGATIVE); LEUKOCYTE ESTERASE,URINE NEGATIVE (NEGATIVE); NITRITE,URINE NEGATIVE (NEGATIVE); PROTEIN,URINE 30 mg/dL (NEGATIVE); URINE SPECIFIC GRAVITY 1.012; UROBILINOGEN,URINE NEGATIVE mg/dL (<2.0)
[2018-08-01 05:40] LABS: ALANINE AMINOTRANSFERASE 14 U/L (9-52); ALBUMIN 4.5 g/dL (3.5-5.0); ALKALINE PHOSPHATASE 126 U/L (38-126); ANION GAP 16 (5-19); ASPARTATE AMINO TRANSFERASE 35 U/L (14-36); BILIRUBIN,DIRECT 0.5 mg/dL (0.0-0.4); BILIRUBIN,TOTAL 0.8 mg/dL (0.2-1.3); BLOOD UREA NITROGEN 38 mg/dL (7-20); CALCIUM 11.5 mg/dL (8.4-10.2); CARBON DIOXIDE 23 mmol/L (22-30); CHLORIDE 101 mmol/L (98-107); GLUCOSE 275 mg/dL (75-110); LIPASE 205.6 U/L (23-300); POTASSIUM 4.7 mmol/L (3.6-5.0); SODIUM 140.4 mmol/L (137-145); TOTAL PROTEIN 9.1 g/dL (6.3-8.2)
[2018-08-01] MEDS ORDERED: PROMETHAZINE HCL INJ 25 MG/1 ML VIAL IM ONE (06:36)
--- NOTE | 2018-08-01 07:35 | EKG REPORT ---
SEVERITY:- ABNORMAL ECG - SINUS TACHYCARDIA INFERIOR INFARCT, OLD ANTERIOR INFARCT OLD BORDERLINE PROLONGED QT INTERVAL NONSPECIFIC ST-T CHANGES- LATERAL LEADS : Confirmed by: Agustin Crawford MD 01-Aug-2018 07:35:02
--- NOTE | 2018-08-01 07:45 | RADIOLOGY REPORT (SQ) ---
EXAM DESCRIPTION: CT ABDOMEN PELVIS WITH IV CONTRAST COMPLETED DATE/TME: 08/01/2018 06:32 CLINICAL HISTORY: 58 years Female, abdominal pain Comparison: 04/01/18 Technique: IV contrast. Coronal and sagittal reformat. This exam was performed according to our departmental dose-optimization program, which includes automated exposure control, adjustment of the mA and/or kV according to patient size and/or use of iterative reconstruction technique. [facility]: Dose Right [facility]: CareDose [facility]: Dose Right [facility]: Teradose 4D [facility]: BrightWhistle LIMITATIONS: Arm position. Findings: Small patchy opacity of the left lower lobe. Sternotomy. Moderate dilation of the proximal and mid right renal collecting system on pre and post excretion phase imaging. Cannot exclude distal ureteral stricture or neoplasm. 0.2 cm left nephrolithiasis. Stool retention. Fibroid uterus.Cholecystectomy. Percutaneous G-tube appears adequate. Small L5-S1 disc bulge. Atherosclerotic vascular disease. No ascites. Inferior thorax, liver, pancreas, spleen, adrenals, gastrointestinal tract, pelvic organs, lymphatics, vasculature, and musculoskeleton appear otherwise unremarkable. IMPRESSION: 1. Moderate dilation of the proximal and mid right renal collecting system. Cannot exclude distal ureteral stricture or neoplasm. Recommend Urology consultation. 2. Small left lower lobar pneumonia. Interval improvement. 3. Colonic stool retention.
[2018-08-01] MEDS ORDERED: LEVOFLOXACIN 750 MG TABLET PO ONE (08:03)
--- NOTE | 2018-08-01 08:04 | ER Document Report ---
ED GI/ - General Chief Complaint: Abdominal Pain Stated Complaint: ABDOMINAL PAIN Time Seen by Provider: 08/01/18 06:31 Primary Care Provider: PETRA RASHEED MD [NO LOCAL MD] - Follow up as needed Mode of Arrival: Medic Information source: Patient Notes: Patient is a 58-year-old female with multiple comorbidities presenting to the emergency department with chief complaint of vomiting and mid abdominal pain. Patient resides at an assisted living facility. Staff reports that she has been vomiting for approximately 1 hour prior to the time of arrival. They states she vomited twice at the facility. Patient reports mid abdominal pain. She denies any cough, fevers, chills, diarrhea or urinary symptoms. TRAVEL OUTSIDE OF THE [place] IN LAST 30 DAYS: No - Related Data Allergies/Adverse Reactions: haloperidol [From Haldol] Allergy (Unknown, Verified 03/07/18 13:36) Past Medical History - General Information source: Patient - Social History Smoking Status: Current Some Day Smoker Frequency of alcohol use: None Drug Abuse: None Family History: Reviewed & Not Pertinent, CAD - Extensive heart disease in both parents and brother with brother dying from complications of cardiac stent placement Patient has suicidal ideation: No Patient has homicidal ideation: No - Past Medical History Cardiac Medical History: Reports: Hx Coronary Artery Disease, Hx Heart Attack - x2, Hx Hypercholesterolemia, Hx Hypertension Denies: Hx Atrial Fibrillation, Hx Congestive Heart Failure, Hx DVT, Hx Peripheral Vascular Disease, Hx Pulmonary Embolism Pulmonary Medical History: Reports: Hx Bronchitis, Hx COPD Denies: Hx Asthma, Hx Pneumonia, Hx Respiratory Failure, Hx Tuberculosis Neurological Medical History: Reports: Hx Cerebrovascular Accident. Denies: Hx Seizures Endocrine Medical History: Reports: Hx Diabetes Mellitus Type 2. Denies: Hx Hyperthyroidism, Hx Hypothyroidism Renal/ Medical History: Reports: Hx Kidney Stones. Denies: Hx Peritoneal Dialysis GI Medical History: Reports: Hx Gastroesophageal Reflux Disease. Denies: Hx Cirrhosis, Hx Crohn's Disease, Hx Hepatitis, Hx Ulcerative Colitis Musculoskeletal Medical History: Denies Hx Arthritis, Denies Hx Gout Skin Medical History: Denies Hx Eczema, Denies Hx Psoriasis Psychiatric Medical History: Reports: Hx Bipolar Disorder, Hx Depression, Hx Schizoaffective Disorder, Hx Schizophrenia Infectious Medical History: Denies: Hx Hepatitis Past Surgical History: Reports: Hx Cardiac Catheterization, Hx Cardiac Surgery - stents, CABG 09/2016, Hx Cholecystectomy, Hx Coronary Artery Bypass Graft - September 2016, Hx Coronary Stent - x2, Hx Open Heart Surgery, Hx Thyroid Surgery, Hx Tonsillectomy, Hx Tubal Ligation, Hx Urinary Tract Surgery, Hx Vascular Surgery, Other - PEG tube placement - Immunizations Hx Diphtheria, Pertussis, Tetanus Vaccination: Yes Hx Pneumococcal Vaccination: 11/29/16 Review of Systems - Review of Systems Constitutional: No symptoms reported EENT: No symptoms reported Cardiovascular: No symptoms reported Respiratory: No symptoms reported Gastrointestinal: Abdominal pain, Nausea, Vomiting Genitourinary: No symptoms reported Female Genitourinary: No symptoms reported Musculoskeletal: No symptoms reported Skin: No symptoms reported Hematologic/Lymphatic: No symptoms reported Neurological/Psychological: No symptoms reported Physical Exam - Vital signs Vitals: Temp Pulse Resp BP Pulse Ox 97.8 F 129 H 24 H 157/137 H 97 08/01/18 02:21 08/01/18 02:21 08/01/18 02:21 08/01/18 02:21 08/01/18 02:21 - Notes Notes: PHYSICAL EXAMINATION: GENERAL: Disheveled but in no acute distress. HEAD: Atraumatic, normocephalic. EYES: Pupils equal round and reactive to light, extraocular movements intact, conjunctiva are normal. ENT: Nares patent, oropharynx clear without exudates. Moist mucous membranes. NECK: Normal range of motion, supple without lymphadenopathy LUNGS: Breath sounds clear to auscultation bilaterally and equal. No wheezes rales or rhonchi. HEART: Regular rate and rhythm without murmurs ABDOMEN: Soft, nondistended abdomen. General tenderness to palpation specifically to the epigastric area. No guarding, no rebound. No masses appreciated. Female : No CVA tenderness. Musculoskeletal: Normal range of motion, no pitting or edema. No cyanosis. NEUROLOGICAL: Cranial nerves grossly intact. Normal sensory, motor exams PSYCH: Normal mood, normal affect. SKIN: Warm, Dry, normal turgor, no rashes or lesions noted. Course - Re-evaluation Re-evalutation: Labs as recorded. CBC is unremarkable. Mild elevation of BUN and creatinine which is consistent for patient. Urinalysis does not show any signs of infection. CT the abdomen pelvis shows a small left-sided lower lobe pneumonia. CT the abdomen pelvis also shows moderate dilation of the proximal and mid the right renal collecting system. Patient was initially tachycardic at time of arrival however she was screaming at the nursing staff at this time. Patient's heart rate has settled to the 95-102 range. Will discharge patient home to detention with plans to follow-up with urologist and she will be started on p .o. antibiotics. - Vital Signs Vital signs: Temp Pulse Resp BP Pulse Ox 98.4 F 129 H 26 H 172/96 H 99 08/01/18 08:45 08/01/18 02:21 08/01/18 08:45 08/01/18 08:45 08/01/18 08:45 - Laboratory Result Diagrams: 08/01/18 04:45 08/01/18 04:45 Laboratory results interpreted by me: 08/01/18 08/01/18 08/01/18 04:45 04:45 05:07 RDW 21.6 H BUN 38 H Creatinine 1.31 H Est GFR ( Amer) 50 L Est GFR (Non-Af Amer) 41 L Glucose 275 H Calcium 11.5 H Direct Bilirubin 0.5 H Total Protein 9.1 H Urine Protein 30 H Urine Glucose (UA) >=500 H Urine Ketones 20 H Urine Ascorbic Acid 40 H Discharge - Discharge Clinical Impression: Pneumonia Qualifiers: Pneumonia type: due to unspecified organism Laterality: left Lung location: lower lobe of lung Qualified Code(s): J18.1 - Lobar pneumonia, unspecified organism Vomiting Qualifiers: Vomiting type: unspecified Vomiting Intractability: unspecified Nausea presence: with nausea Qualified Code(s): R11.2 - Nausea with vomiting, unspecified Condition: Stable Disposition: HOME, SELF-CARE Additional Instructions: The CT of the abdomen and pelvis showed mild dilation of the urinary collection system. Her urinalysis did not show any absolute infection however so a culture is pending. She does have a small right-sided pneumonia which she is being started on antibiotics for. Please drink plenty of fluids. Follow-up with primary care in the next 2 to 3 days for a follow-up. Someone will call in the next 2 to 3 days with any abnormal culture results. Follow-up with a urologist regarding the CT findings. Contact information for a urologist with [facility] has been given on your discharge papers. They do have an office here in [place]. Prescriptions: Doxycycline Hyclate [Vibramycin] 100 mg PO BID #14 capsule Referrals: PETRA RASHEED MD [NO LOCAL MD] - Follow up as needed
[2018-08-01 09:10] VITALS: BP 172/96
== END 2018-08-01 09:11 | disposition home or self-care (01) ==
LOC: ER 02:15
DX: R11.2 Nausea with vomiting, unspecified (principal); J18.1 Lobar pneumonia, unspecified organism; J44.0 Chronic obstructive pulmonary disease with (acute) lower respiratory infection; R10.9 Unspecified abdominal pain; R10.816 Epigastric abdominal tenderness; F17.200 Nicotine dependence, unspecified, uncomplicated; I25.10 Atherosclerotic heart disease of native coronary artery without angina pectoris; I10 Essential (primary) hypertension; E11.9 Type 2 diabetes mellitus without complications; Z87.442 Personal history of urinary calculi; Z95.1 Presence of aortocoronary bypass graft; Z95.5 Presence of coronary angioplasty implant and graft; Z88.8 Allergy status to other drugs, medicaments and biological substances
CPT/HCPCS: 93005; 99285; 96372; 36415; 83690; 85025; 80053; 81001; 74177; 93010; J2550; J3490

== ENCOUNTER 2018-08-01 19:30 | Inpatient (IN) | payer MEDICAID ==
[2018-08-01] MEDS ORDERED: ONDANSETRON HCL INJ/PF 4 MG/2 ML SDV IV ONE (20:16)
[2018-08-01] MEDS ORDERED: NORMAL SALINE 1000 ML 1,000 ML IV ONE (20:16)
--- NOTE | 2018-08-01 20:18 | ER Document Report ---
ED General - General Stated Complaint: NAUSEA Time Seen by Provider: 08/01/18 20:05 Notes: Patient is a 58-year-old female that comes from [facility] by EMS for chief complaint of vomiting, pain in her upper abdomen, pain in her chest. She states she thinks she vomited 20 times today. She was seen here earlier today, states she was diagnosed with pneumonia and prescribed antibiotics. She states she threw up something that looked "dark", denies th rowing blood specifically. She denies fever, denies abnormal bowel movements, states she had a recent normal bowel movement. She denies other complaints including shortness of breath. Past medical history includes CAD with stents and CABG, diabetes, hypertension, PEG tube placement, anxiety/schizoaffective disorder. TRAVEL OUTSIDE OF THE [place] IN LAST 30 DAYS: No - Related Data Allergies/Adverse Reactions: haloperidol [From Haldol] Allergy (Unknown, Verified 03/07/18 13:36) Past Medical History - General Information source: Patient, Emergency Med Personnel - Social History Smoking Status: Never Smoker Frequency of alcohol use: None Drug Abuse: None Lives with: Skilled Nursing Family History: Reviewed & Not Pertinent, CAD - Extensive heart disease in both parents and brother with brother dying from complications of cardiac stent placement - Past Medical History Cardiac Medical History: Reports: Hx Coronary Artery Disease, Hx Heart Attack - x2, Hx Hypercholesterolemia, Hx Hypertension Denies: Hx Atrial Fibrillation, Hx Congestive Heart Failure, Hx DVT, Hx Peripheral Vascular Disease, Hx Pulmonary Embolism Pulmonary Medical History: Reports: Hx Bronchitis, Hx COPD Denies: Hx Asthma, Hx Pneumonia, Hx Respiratory Failure, Hx Tuberculosis Neurological Medical History: Reports: Hx Cerebrovascular Accident. Denies: Hx Seizures Endocrine Medical History: Reports: Hx Diabetes Mellitus Type 2. Denies: Hx Hyperthyroidism, Hx Hypothyroidism Renal/ Medical History: Reports: Hx Kidney Stones. Denies: Hx Peritoneal Dialysis GI Medical History: Reports: Hx Gastroesophageal Reflux Disease. Denies: Hx Cirrhosis, Hx Crohn's Disease, Hx Hepatitis, Hx Ulcerative Colitis Musculoskeletal Medical History: Denies Hx Arthritis, Denies Hx Gout Skin Medical History: Denies Hx Eczema, Denies Hx Psoriasis Psychiatric Medical History: Reports: Hx Bipolar Disorder, Hx Depression, Hx Schizoaffective Disorder, Hx Schizophrenia Infectious Medical History: Denies: Hx Hepatitis Past Surgical History: Reports: Hx Cardiac Catheterization, Hx Cardiac Surgery - stents, CABG 09/2016, Hx Cholecystectomy, Hx Coronary Artery Bypass Graft - September 2016, Hx Coronary Stent - x2, Hx Open Heart Surgery, Hx Thyroid Surgery, Hx Tonsillectomy, Hx Tubal Ligation, Hx Urinary Tract Surgery, Hx Vascular Surgery, Other - PEG tube placement - Immunizations Hx Diphtheria, Pertussis, Tetanus Vaccination: Yes Hx Pneumococcal Vaccination: 11/29/16 Review of Systems - Review of Systems Constitutional: See HPI EENT: No symptoms reported Cardiovascular: See HPI Respiratory: See HPI Gastrointestinal: See HPI Genitourinary: No symptoms reported Female Genitourinary: No symptoms reported Musculoskeletal: No symptoms reported Skin: No symptoms reported Hematologic/Lymphatic: No symptoms reported Neurological/Psychological: No symptoms reported Physical Exam - Vital signs Vitals: Temp Pulse Resp BP 98.3 F 120 H 23 H 157/101 H 08/01/18 19:31 08/01/18 19:31 08/01/18 19:31 08/01/18 19:31 - Notes Notes: GENERAL: Alert, interacts well. No acute distress. HEAD: Normocephalic, atraumatic. EYES: Pupils equal, round, and reactive to light. Extraocular movements intact. ENT: Oral mucosa dry, tongue midline. Oropharynx unremarkable. Airway patent. Nares patent, no nasal septal hematoma, TM's intact. NECK: Full range of motion. Supple. Trachea midline. LUNGS: A few scattered coarse breath sounds, occasional cough, no respiratory distress. HEART: Tachycardia, normal rhythm. No murmur ABDOMEN: Minimal generalized abdominal tenderness, no distention, no guarding. G-tube present in the left upper quadrant without obvious abnormality. GENITOURINARY: Deferred EXTREMITIES: Moves all 4 extremities spontaneously. No edema, normal radial and dorsalis pedis pulses bilaterally. No cyanosis. BACK: no cervical, thoracic, lumbar midline tenderness. No saddle anesthesia, normal distal neurovascular exam. Moves all extremities in full range of motion. NEUROLOGICAL: Alert and oriented x3. Normal speech. Cranial nerves II through XII grossly intact. PSYCH: slightly anxious but cooperative SKIN: Warm, dry, normal turgor. Old healing scab/sore over the parietal scalp Course - Re-evaluation Re-evalutation: Patient somewhat ill-appearing, possibly chronic ill-appearing, she is tachycardic, mildly uncomfortable in appearance. She does have an occasional cough. She has generalized abdominal pain without specific guarding, G-tube appears unremarkable. CBC shows leukocytosis at 13.3 with elevated neutrophils but no bandemia. Chemistry shows acute renal insufficiency with creatinine of 1.8 and GFR of 28. BUN is 45. She was given IV fluids. Troponin is just below cough level at 0.112, but this is nonspecific given renal insufficiency. Patient is tachycardic, however I cannot perform a CTA because she just received contrast bolus earlier with the CAT scan of the abdomen/pelvis. Based on this she was diagnosed with pneumonia and placed on Levaquin. Chest x-ray does appear normal. EKG does not appear concerningly different from prior. I discussed the patient and workup with Dr. Roy. She recommends more IV fluids, repeat troponin, if there is no significant change then she recommends admission of the patient to the hospital for pneumonia, vomiting, acute kidney injury. Troponin finally was cycled at 0.138. I have reevaluated her twice and she has no current symptoms, her abdomen is benign on my reevaluation, her CAT scan did not show acute surgical abnormality, and she urinated without difficulty. Discussed with Dr. Roy again, she recommends admission. I spoke to Dr. Waters, he accepted the patient for admission. Patient states agreement with plan. - Vital Signs Vital signs: Temp Pulse Resp BP Pulse Ox 98.3 F 120 H 15 100/66 100 08/01/18 19:31 08/01/18 19:31 08/02/18 03:01 08/02/18 03:00 08/02/18 02:12 - Laboratory Result Diagrams: 08/01/18 20:58 08/01/18 20:58 Laboratory results interpreted by me: 08/01/18 08/01/18 08/01/18 18:53 20:58 20:58 WBC 13.3 H RDW 21.7 H Seg Neutrophils % 79.3 H Lymphocytes % 10.9 L Absolute Neutrophils 10.5 H BUN 45 H Creatinine 1.83 H Est GFR ( Amer) 34 L Est GFR (Non-Af Amer) 28 L Glucose 270 H Calcium 11.9 H Direct Bilirubin 0.5 H AST 40 H Alkaline Phosphatase 136 H Total Protein 9.7 H Urine Protein >=500 H Urine Glucose (UA) >=500 H Urine Ketones TRACE H - EKG Interpretation by Me Additional EKG results interpreted by me: EKG shows sinus tachycardia at a rate of 123, inferior Q waves noted (these are not new when compared to previous EKG), no T wave inversions in consecutive leads, QTC of 487. OR interval slightly short at 108. Discharge - Discharge Clinical Impression: Acute kidney injury Vomiting Qualifiers: Vomiting type: unspecified Vomiting Intractability: unspecified Nausea presence: with nausea Qualified Code(s): R11.2 - Nausea with vomiting, unspecified Pneumonia Qualifiers: Pneumonia type: due to unspecified organism Laterality: left Lung location: lower lobe of lung Qualified Code(s): J18.1 - Lobar pneumonia, unspecified organism Condition: Stable Disposition: ADMITTED INPATIENT Admitting Provider: Evelin (Hospitalist) Unit Admitted: Telemetry
[2018-08-01 21:13] LABS: APPEARANCE,URINE CLOUDY; BILIRUBIN,URINE NEGATIVE (NEGATIVE); COLOR,URINE YELLOW; GLUCOSE, URINE >=500 mg/dL (NEGATIVE); KETONES,URINE TRACE mg/dL (NEGATIVE); LEUKOCYTE ESTERASE,URINE NEGATIVE (NEGATIVE); NITRITE,URINE NEGATIVE (NEGATIVE); PROTEIN,URINE >=500 mg/dL (NEGATIVE); URINE SPECIFIC GRAVITY 1.026; UROBILINOGEN,URINE NEGATIVE mg/dL (<2.0)
--- NOTE | 2018-08-01 21:16 | RADIOLOGY REPORT (SQ) ---
EXAM DESCRIPTION: [facility]: XR CHEST 1 VIEW CLINICAL HISTORY: 58 years Female, chest pain, vomiting COMPARISON: 07/27/2018 FINDINGS: Mild linear scarring in the left lower lobe is similar to prior exam. No acute infiltrates. No pneumothorax or pleural effusion. Sternal wires are again noted. Mediastinum is otherwise unremarkable. Bony structures are unremarkable. IMPRESSION: 1. No acute pulmonary findings. 2. Previous sternotomy
[2018-08-01 21:36] LABS: ABSOLUTE LYMPHOCYTES (AUTO) 1.4 10^3/uL (0.5-4.7); ABSOLUTE MONOCYTES (AUTO) 1.3 10^3/uL (0.1-1.4); ABSOLUTE NEUT (AUTO) 10.5 10^3/uL (1.7-8.2); BASOPHILS % (AUTO) 0.1 % (0-2); HEMATOCRIT 39.6 % (36.0-47.0); HEMOGLOBIN 13.4 g/dL (12.0-15.5); LYMPHOCYTES % (AUTO) 10.9 % (13-45); MEAN CORPUSCULAR HEMOGLOBIN 28.4 pg (27.0-33.4); MEAN CORPUSCULAR HGB CONC 33.8 g/dL (32.0-36.0); MEAN CORPUSCULAR VOLUME 84 fl (80-97); MONOCYTES % (AUTO) 9.7 % (3-13); PLATELET COUNT 304 10^3/uL (150-450); RED CELL DISTRIBUTION WIDTH 21.7 % (11.5-14.0); SEGMENTED NEUTROPHILS % (AUTO) 79.3 % (42-78); TOTAL CELLS COUNTED % (AUTO) 100 %; WHITE BLOOD COUNT 13.3 10^3/uL (4.0-10.5)
[2018-08-01 22:00] LABS: ALANINE AMINOTRANSFERASE 14 U/L (9-52); ALBUMIN 4.8 g/dL (3.5-5.0); ALKALINE PHOSPHATASE 136 U/L (38-126); ANION GAP 19 (5-19); ASPARTATE AMINO TRANSFERASE 40 U/L (14-36); BILIRUBIN,DIRECT 0.5 mg/dL (0.0-0.4); BILIRUBIN,TOTAL 0.8 mg/dL (0.2-1.3); BLOOD UREA NITROGEN 45 mg/dL (7-20); CALCIUM 11.9 mg/dL (8.4-10.2); CARBON DIOXIDE 22 mmol/L (22-30); CHLORIDE 98 mmol/L (98-107); GLUCOSE 270 mg/dL (75-110); LIPASE 151.8 U/L (23-300); SODIUM 139.4 mmol/L (137-145); TOTAL PROTEIN 9.7 g/dL (6.3-8.2)
[2018-08-01] MEDS ORDERED: NORMAL SALINE 500 ML IV ONE (22:43)
[2018-08-01] MEDS ORDERED: MORPHINE SULFATE 10 MG/ML INJ IV ONE (22:44)
[2018-08-02] MEDS ORDERED: PROMETHAZINE HCL INJ 25 MG/1 ML VIAL ONE (03:08)
[2018-08-02] MEDS ORDERED: RINGERS SOLUTION,LACTATED 1,000 ML IV PRN (04:07)
--- NOTE | 2018-08-02 06:26 | PDOC H&P ---
History of Present Illness Admission Date/PCP: 08/02/18 03:25 TREVON SKAGGS PA-C Patient complains of: Vomiting History of Present Illness: CHARLEY SHERMAN is a 58 year old female who presented to the emergency room with severe vomiting. She admits that she developed nausea and vomiting with upper abdominal pain early in the day on 08/01/2018. She was subsequently seen in the emergency room and at that time was diagnosed as having a left lower lobe pneumonia based upon CT of the chest abdomen and pelvis findings. She was started on antibiotics and given IV fluids prior to her return to the [facility]. Once back at the custodial her nausea and vomiting returned with more than 20 episodes of vomiting and increasingly severe colicky generalized abdominal pain, thus prompting her return to the ER on the evening of 08/01/2018. Patient has the same chronic chest pain that she has experienced for at least 4 years also present at this time, but denies any other associated symptoms. In the emergency room patient was found to have persistence or slight worsening of her acute kidney injury and slightly elevated cardiac enzymes with tachycardia. Patient was subsequently admitted to the hospital for further evaluation and treatment. Past Medical History Cardiac Medical History: Reports: Coronary Artery Disease, Myocardial Infarction - x2, Hyperlipidema, Hypertension Denies: Atrial Fibrillation, Congestive Heart Failure, DVT, Peripheral Vas cular Disease, Pulmonary Embolism Pulmonary Medical History: Reports: Bronchitis, Chronic Obstructive Pulmonary Disease (COPD) Denies: Asthma, Pneumonia, Respiratory Failure, Tuberculosis EENT Medical History: Denies: Cataracts, Ears - Hearing aids Neurological Medical History: Denies: Hemorrhagic CVA, Ischemic CVA, Seizures Endocrine Medical History: Reports: Diabetes Mellitus Type 2 Denies: Hyperthyroidism, Hypothyroidism Renal/ Medical History: Reports: Chronic Kidney Disease Denies: Nephrolithiasis Malignancy Medical History: Reports: None GI Medical History: Reports: Gastroesophageal Reflux Disease Denies: Cirrhosis, Crohn's Disease, Hepatitis, Ulcerative Colitis Musculoskeltal Medical History: Denies: Arthritis, Gout Skin Medical History: Denies: Eczema, Psoriasis Psychiatric Medical History: Reports: Bipolar Disorder, Depression, Schizoaffective Disorder Denies: Alcohol Dependency, Substance Abuse, Tobacco Dependency Traumatic Medical History: Reports: None Hematology: Denies: Anemia, Bleeding Tendencies Infectious Medical History: Reports: None Past Surgical History Past Surgical History: Reports: Cardiac Catheterization, Cholecystectomy, Coronary Artery Bypass Graft - September 2016, Coronary Stent - x2, Tonsillectomy, Tubal Ligation, Vascular Surgery, Other - PEG tube placement Social History Information Source: Patient Lives with: Longterm Smoking Status: Former Smoker Frequency of Alcohol Use: None Hx Recreational Drug Use: No Drugs: None Hx Prescription Drug Abuse: No - Advance Directive Resuscitation Status: Full Code Surrogate healthcare decision maker:: Evelin Garrett Family History Family History: CAD - Extensive heart disease in both parents and brother with brother dying from complications of cardiac stent placement Parental Family History Reviewed: Yes Children Family History Reviewed: No Sibling(s) Family History Reviewed.: Yes Medication/Allergy Home Medications: Acetaminophen [Tylenol] 650 mg PO Q6HP PRN 07/27/18 Allopurinol [Zyloprim 100 mg Tablet] 100 mg PO DAILY 07/27/18 Aspirin [Aspirin 81 mg Chewable Tablet] 81 mg PO QHS 07/27/18 Atorvastatin Calcium [Lipitor 10 mg Tablet] 10 mg PO DAILY 07/27/18 Buspirone HCl [Buspar 5 mg Tablet] 5 mg PO DAILY 07/27/18 Clonidine [Catapres-Tts 1 (0.1 mg/24 Hr) Transderm Patch] 1 patch TD TU@1000 0 07/27/18 Famotidine [Pepcid] 20 mg PO BID 07/27/18 Ipratropium/Albuterol Sulfate [Duoneb 3 ml Ampul] 3 ml NEB RTQ6HP PRN 07/27/18 Magnesium Hydroxide [Milk of Magnesia 30 ml Udcup] 30 ml PO Q2HP PRN 07/27/18 Metoprolol Tartrate [Lopressor 25 mg Tablet] 12.5 mg PO DAILY 07/27/18 Multivit-Minerals/Ferrous Fum [Multivitamin Liquid] 5 ml PO DAILY 07/27/18 Mupirocin [Bactroban 2% Ointment 22 gm] 1 applic TP BID 07/27/18 Nitroglycerin [Nitrostat] 0.3 mg SL Q5MP PRN 07/27/18 Nut.tx.gluc Intol,Lf,Soy/Fiber [Diabetisource AC 1.2 Sabino Liq] 240 ml PO DAILY 07/27/18 Polyethylene Glycol 3350 [Miralax Powder 17 gm/Packet] 1 packet PO DAILY 07/27/18 Quetiapine Fumarate [Seroquel] 50 mg PO BID 07/27/18 Valproate Sodium [Depakene Syrup 250 mg/5 ml Udcup] 500 mg PO Q12 07/27/18 Levofloxacin [Levaquin 750 mg Tablet] 750 mg PO DAILY #5 tablet 08/01/18 Allergies/Adverse Reactions: haloperidol [From Haldol] Allergy (Unknown, Verified 03/07/18 13:36) Review of Systems Constitutional: ABSENT: chills, fever(s) Eyes: ABSENT: visual disturbances, other - Eye pain Ears: ABSENT: hearing changes, other - Ear pain Nose, Mouth, and Throat: ABSENT: mouth pain, sore throat Cardiovascular: PRESENT: as per HPI, chest pain - Chronic. ABSENT: dyspnea on exertion, palpitations Respiratory: ABSENT: cough, dyspnea Gastrointestinal: PRESENT: as per HPI, abdominal pain, nausea, vomiting. ABSENT: constipation, diarrhea Genitourinary: ABSENT: dysuria, hematuria Musculoskeletal: ABSENT: back pain, joint swelling, muscle weakness Integumentary: ABSENT: pruritus, rash Neurological: ABSENT: confusion, convulsions, focal weakness, memory loss, syncope Psychiatric: ABSENT: anxiety, depression Endocrine: ABSENT: cold intolerance, heat intolerance Hematologic/Lymphatic: ABSENT: easy bleeding, easy bruising Physical Exam Vital Signs: Temp Pulse Resp BP Pulse Ox 98.3 F 120 H 15 100/66 100 08/01/18 19:31 08/01/18 19:31 08/02/18 03:01 08/02/18 03:00 08/02/18 02:12 Intake & Output 07/31/18 08/01/18 08/02/18 23:59 23:59 23:59 Intake Total 1000 500 Balance 1000 500 General appearance: PRESENT: cooperative, mild distress - Appears acutely ill Head exam: PRESENT: atraumatic, normocephalic Eye exam: ABSENT: conjunctival injection, scleral icterus Ear exam: PRESENT: normal external ear exam. ABSENT: bleeding, drainage Mouth exam: PRESENT: dry mucosa, neck supple Neck exam: ABSENT: JVD, thyromegaly, tracheal deviation Respiratory exam: PRESENT: clear to auscultation ailyn, symmetrical, unlabored Cardiovascular exam: PRESENT: RRR. ABSENT: clicks, gallop, rubs Pulses: PRESENT: normal radial pulses, normal dorsalis pedis pul Vascular exam: PRESENT: normal capillary refill. ABSENT: pallor GI/Abdominal exam: PRESENT: normal bowel sounds, soft Rectal exam: PRESENT: deferred Extremities exam: ABSENT: joint swelling, pedal edema Musculoskeletal exam: ABSENT: deformity, dislocation Neurological exam: PRESENT: alert, oriented to person, oriented to place, oriented to time, oriented to situation, CN II-XII grossly intact. ABSENT: motor sensory deficit Psychiatric exam: PRESENT: appropriate affect, normal mood Skin exam: PRESENT: dry, intact, warm. ABSENT: jaundice, rash, urticaria Results Laboratory Results: 08/01/18 20:58 08/01/18 20:58 08/01/18 08/01/18 08/01/18 18:53 20:58 20:58 WBC 13.3 H RBC 4.70 Hgb 13.4 Hct 39.6 MCV 84 MCH 28.4 MCHC 33.8 RDW 21.7 H Plt Count 304 Seg Neutrophils % 79.3 H Lymphocytes % 10.9 L Monocytes % 9.7 Eosinophils % 0.0 Basophils % 0.1 Absolute Neutrophils 10.5 H Absolute Lymphocytes 1.4 Absolute Monocytes 1.3 Absolute Eosinophils 0.0 Absolute Basophils 0.0 Sodium 139.4 Potassium 4.0 Chloride 98 Carbon Dioxide 22 Anion Gap 19 BUN 45 H Creatinine 1.83 H Est GFR ( Amer) 34 L Est GFR (Non-Af Amer) 28 L Glucose 270 H Calcium 11.9 H Total Bilirubin 0.8 AST 40 H ALT 14 Alkaline Phosphatase 136 H Total Protein 9.7 H Albumin 4.8 Lipase 151.8 Urine Color YELLOW Urine Appearance CLOUDY Urine pH 8.0 Ur Specific Norman 1.026 Urine Protein >=500 H Urine Glucose (UA) >=500 H Urine Ketones TRACE H Urine Blood NEGATIVE Urine Nitrite NEGATIVE Ur Leukocyte Esterase NEGATIVE Urine WBC (Auto) 8 Urine RBC (Auto) 45 08/01/18 08/02/18 20:58 01:51 Troponin I 0.113 0.138 Impressions: Chest X-Ray 08/01/18 20:16 IMPRESSION: 1. No acute pulmonary findings. 2. Previous sternotomy Assessment and Plan - Diagnosis (1) Vomiting Qualifiers: Vomiting type: unspecified Vomiting Intractability: unspecified Nausea presence: with nausea Qualified Code(s): R11.2 - Nausea with vomiting, unspecified Is this a current diagnosis for this admission?: Yes Plan: Patient will be treated with supportive and symptomatic cares for her vomiting. She will receive IV fluid and IV antiemetics using Zofran. (2) Abdominal pain, generalized Is this a current diagnosis for this admission?: Yes Plan: Patient's abdominal pain will be treated with morphine sulfate 2 to 4 mg IV every 2 hours on a sliding scale basis. She will otherwise receive supportive and symptomatic cares as well as IV fluids. Daily CBC and metabolic profiles will be obtained as part of her ongoing evaluation. (3) Acute kidney injury Is this a current diagnosis for this admission?: Yes Plan: Patient will be treated with supportive and symptomatic cares as required. She will receive IV fluid therapy and her metabolic profile with a magnesium level will be followed on a regular basis. (4) Left lower lobe pulmonary infiltrate Is this a current diagnosis for this admission?: Yes Plan: This pulmonary infiltrate was seen in and April 2018. The CT scan done earlier on the day prior to admission shows improvement from the infiltrate which was previously noted in April 2018. This therefore as noted out not an acute problem although it did resulted in the patient being treated with antibiotics for a pneumonia. No further antibiotic therapy will be given. (5) Chest pain Qualifiers: Chest pain type: other chest pain Qualified Code(s): R07.89 - Other chest pain; R07.8 - Other chest pain Is this a current diagnosis for this admission?: Yes Plan: Patient has had chronic chest pain for 4 years and continues to have pain on a continuous basis, but of variable intensity. She will be treated with routine symptomatic and supportive cares. - Time Time Spent with patient: 15-24 minutes Medications reviewed and adjusted accordingly: Yes Anticipated discharge: SNF - Inpatient Certification Based on my medical assessment, after consideration of the patient's comorbidities, presenting symptoms, or acuity I expect that the services needed warrant INPATIENT care.: Yes I certify that my determination is in accordance with my understanding of Medicare's requirements for reasonable and necessary INPATIENT services [42 CFR 412.3e].: Yes Medical Necessity: Failure to Improve With Outpatient Therapy, Significant Comorbidiites Make Outpatient Treatment Too Risky, Need Close Monitoring Due to Risk of Patient Decompensation, Need For IV Fluids, Need for Pain Control, Risk of Complication if Not Cared For in Hospital
[2018-08-02] MEDS ORDERED: MORPHINE SULFATE 10 MG/ML INJ IV PRN (06:37)
[2018-08-02] MEDS: METOCLOPRAMIDE HCL INJ/PF 10 MG/2 ML SDV IV SCH ×4 (06:58→23:49)
--- NOTE | 2018-08-02 08:01 | EKG REPORT ---
SEVERITY:- ABNORMAL ECG - SINUS TACHYCARDIA INFERIOR INFARCT, POSSIBLY ACUTE LATERAL INFARCT, AGE INDETERMINATE ANTERIOR INFARCT, AGE INDETERMINATE BORDERLINE PROLONGED QT INTERVAL : Confirmed by: Agustin Crawford MD 02-Aug-2018 08:00:56
[2018-08-02 09:38] LABS: ALANINE AMINOTRANSFERASE 13 U/L (9-52); ALBUMIN 3.9 g/dL (3.5-5.0); ALKALINE PHOSPHATASE 92 U/L (38-126); ANION GAP 13 (5-19); ASPARTATE AMINO TRANSFERASE 42 U/L (14-36); BILIRUBIN,DIRECT 0.4 mg/dL (0.0-0.4); BILIRUBIN,TOTAL 0.5 mg/dL (0.2-1.3); BLOOD UREA NITROGEN 51 mg/dL (7-20); CALCIUM 10.6 mg/dL (8.4-10.2); CARBON DIOXIDE 27 mmol/L (22-30); CHLORIDE 105 mmol/L (98-107); GLUCOSE 94 mg/dL (75-110); SODIUM 144.6 mmol/L (137-145); TOTAL PROTEIN 8.1 g/dL (6.3-8.2)
[2018-08-02 09:47] LABS: CREATINE KINASE MB 3.87 ng/mL (<4.55)
[2018-08-02 09:50] LABS: TROPONIN I 0.149 ng/mL
[2018-08-02] MEDS ORDERED: FAMOTIDINE INJ/PF 20 MG/2 ML SDV IV SCH (10:00)
[2018-08-02] MEDS: FAMOTIDINE INJ/PF 20 MG/2 ML SDV IV SCH (10:21)
[2018-08-02] MEDS: VALPROATE SODIUM SYRUP 250 MG/5 ML UDCUP PO SCH ×2 (10:21→22:17)
[2018-08-02 11:10] LABS: ABSOLUTE BASOPHILS # (AUTO) 0.1 10^3/uL (0.0-0.2); ABSOLUTE LYMPHOCYTES (AUTO) 3.9 10^3/uL (0.5-4.7); ABSOLUTE MONOCYTES (AUTO) 1.8 10^3/uL (0.1-1.4); BASOPHILS % (AUTO) 0.6 % (0-2); EOSINOPHILS % (AUTO) 0.3 % (0-6); HEMATOCRIT 37.4 % (36.0-47.0); HEMOGLOBIN 12.5 g/dL (12.0-15.5); LYMPHOCYTES % (AUTO) 28.3 % (13-45); MEAN CORPUSCULAR HEMOGLOBIN 28.4 pg (27.0-33.4); MEAN CORPUSCULAR HGB CONC 33.3 g/dL (32.0-36.0); MEAN CORPUSCULAR VOLUME 85 fl (80-97); MONOCYTES % (AUTO) 12.8 % (3-13); RED BLOOD COUNT 4.39 10^6/uL (3.72-5.28); RED CELL DISTRIBUTION WIDTH 22.3 % (11.5-14.0); TOTAL CELLS COUNTED % (AUTO) 100 %; WHITE BLOOD COUNT 13.7 10^3/uL (4.0-10.5)
[2018-08-02 11:40] LABS: PLATELET COUNT 216 10^3/uL (150-450)
--- NOTE | 2018-08-02 11:46 | Progress Note ---
Provider Note Provider Note: 58 year old female who presented to the emergency room with severe vomiting. She admits that she developed nausea and vomiting with upper abdominal pain early in the day on 08/01/2018. She was subsequently seen in the emergency room and at that time was diagnosed as having a left lower lobe pneumonia based upon CT of the chest abdomen and pelvis findings. She was started on antibiotics and given IV fluids prior [facility] the [facility]. [facility] back at the [facility] her nausea and vomiting returned with more than 20 episodes of vomiting and increasingly severe colicky generalized abdominal pain, thus prompting her return to the ER on the evening of 08/01/2018. Patient has the same chronic chest pain that she has experienced for at least 4 years also present at this time, but denies any other associated symptoms. In the emergency room patient was found to have persistence or slight worsening of her acute kidney injury and slightly elevated cardiac enzymes with tachycardia. Patient was subsequently admitted to the hospital for further evaluation and treatment. [id number] female recently discharged from the hospital came back with complaints of abdominal pain nausea vomiting's and AKA. She was also complaining of chest pain. She is on clear liquids at this point. Troponins are slightly elevated latest troponin is 0.138. That is her baseline. Afebrile. No acute events since the admission. Examination alert and awake communicating okay. Chest bilateral entry was decreased CVS S1-S2 abdomen soft bowel sounds are present extremities no pedal edema. Plan is to continue the present management and recheck the labs tomorrow.
[2018-08-02] MEDS: HEPARIN SOD (PORCINE) 5,000 UNIT/ML 1 ML SYRINGE SUBCUT SCH ×2 (14:18→22:17)
[2018-08-02 16:45] LABS: CREATINE KINASE MB 3.75 ng/mL (<4.55); TROPONIN I 0.11 ng/mL
[2018-08-02 21:48] LABS: CREATINE KINASE MB 3.2 ng/mL (<4.55); TROPONIN I 0.088 ng/mL
[2018-08-02] MEDS: OLANZAPINE INJ/PF 10 MG SDV IM SCH (22:18)
[2018-08-03] MEDS: HEPARIN SOD (PORCINE) 5,000 UNIT/ML 1 ML SYRINGE SUBCUT SCH ×3 (05:59→23:34)
[2018-08-03] MEDS: METOCLOPRAMIDE HCL INJ/PF 10 MG/2 ML SDV IV SCH ×4 (06:00→23:31)
[2018-08-03 08:28] LABS: ALANINE AMINOTRANSFERASE 28 U/L (9-52); ALBUMIN 3.5 g/dL (3.5-5.0); ALKALINE PHOSPHATASE 77 U/L (38-126); ANION GAP 13 (5-19); ASPARTATE AMINO TRANSFERASE 63 U/L (14-36); BILIRUBIN,DIRECT 0.5 mg/dL (0.0-0.4); BILIRUBIN,TOTAL 0.7 mg/dL (0.2-1.3); BLOOD UREA NITROGEN 49 mg/dL (7-20); CALCIUM 10.2 mg/dL (8.4-10.2); CARBON DIOXIDE 24 mmol/L (22-30); CHLORIDE 109 mmol/L (98-107); GLUCOSE 73 mg/dL (75-110); POTASSIUM 4.3 mmol/L (3.6-5.0); SODIUM 145.5 mmol/L (137-145); TOTAL PROTEIN 7.2 g/dL (6.3-8.2)
[2018-08-03 10:04] LABS: HEMATOCRIT 33.3 % (36.0-47.0); HEMOGLOBIN 11.1 g/dL (12.0-15.5); MEAN CORPUSCULAR HEMOGLOBIN 28.8 pg (27.0-33.4); MEAN CORPUSCULAR HGB CONC 33.3 g/dL (32.0-36.0); MEAN CORPUSCULAR VOLUME 87 fl (80-97); PLATELET COUNT 183 10^3/uL (150-450); RED BLOOD COUNT 3.84 10^6/uL (3.72-5.28)
[2018-08-03] MEDS: VALPROATE SODIUM SYRUP 250 MG/5 ML UDCUP PO SCH ×2 (10:44→23:31)
[2018-08-03] MEDS: FAMOTIDINE INJ/PF 20 MG/2 ML SDV IV SCH (10:44)
--- NOTE | 2018-08-03 19:50 | PDOC PROGRESS REPORT ---
Subjective Progress Note for:: 08/03/18 Subjective:: CHARLEY SHERMAN is a 58 year old female who presented to the emergency room with severe vomiting. She admits that she developed nausea and vomiting with upper abdominal pain early in the day on 08/01/2018. She was subsequently seen in the emergency room and at that time was diagnosed as having a left lower lobe pneumonia based upon CT of the chest abdomen and pelvis findings. She was started on antibiotics and given IV fluids prior to her return to the long term. Once back at the long term her nausea and vomiting returned with more than 20 episodes of vomiting and increasingly severe colicky generalized abdominal pain, thus prompting her return to the ER on the evening of 08/01/2018. Patient has the same chronic chest pain that she has experienced for at least 4 years also present at this time, but denies any other associated symptoms. In the emergency room patient was found to have persistence or slight worsening of her acute kidney injury and slightly elevated cardiac enzymes with tachycardia. Patient was subsequently admitted to the hospital for further evaluation and treatment. Reason For Visit: ACUTE ONSET NAUSEA AND VOMITING WITH ABDOMINAL Physical Exam Vital Signs: Temp Pulse Resp BP Pulse Ox 98.3 F 73 12 105/42 L 100 08/03/18 16:00 08/03/18 16:00 08/03/18 16:00 08/03/18 16:00 08/03/18 16:00 Intake & Output 08/02/18 08/03/18 08/04/18 06:59 06:59 06:59 Intake Total 1500 2132 1144 Balance 1500 2132 1144 Weight 59.1 kg 59.4 kg Results Laboratory Results: 08/03/18 09:21 08/03/18 07:13 08/03/18 08/03/18 08/03/18 07:13 07:13 09:21 WBC Cancelled 7.0 RBC Cancelled 3.84 Hgb Cancelled 11.1 L Hct Cancelled 33.3 L MCV Cancelled 87 MCH Cancelled 28.8 MCHC Cancelled 33.3 RDW Cancelled 22.0 H Plt Count Cancelled 183 Sodium 145.5 H Potassium 4.3 Chloride 109 H Carbon Dioxide 24 Anion Gap 13 BUN 49 H Creatinine 1.90 H Est GFR ( Amer) 33 L Est GFR (Non-Af Amer) 27 L Glucose 73 L Calcium 10.2 Magnesium 2.3 Total Bilirubin 0.7 AST 63 H ALT 28 Alkaline Phosphatase 77 Total Protein 7.2 Albumin 3.5 08/01/18 08/02/18 08/02/18 20:58 01:51 08:35 Creatine Kinase 83 CK-MB (CK-2) Troponin I 0.113 0.138 08/02/18 08/02/18 08/02/18 08:35 15:38 15:38 Creatine Kinase 67 CK-MB (CK-2) 3.87 3.75 Troponin I 0.149 0.110 08/02/18 08/02/18 21:07 21:07 Creatine Kinase 58 CK-MB (CK-2) 3.20 Troponin I 0.088 Impressions: Chest X-Ray 08/01/18 20:16 IMPRESSION: 1. No acute pulmonary findings. 2. Previous sternotomy Assessment and Plan - Diagnosis (1) Acute kidney injury Is this a current diagnosis for this admission?: Yes Plan: Likely prerenal induced by low p.o. intake due to nausea and vomiting. Improving. Back to baseline. Electrolytes within normal limits. (2) Chest pain Qualifiers: Chest pain type: other chest pain Qualified Code(s): R07.89 - Other chest pain; R07.8 - Other chest pain Is this a current diagnosis for this admission?: Yes Plan: Patient has had chronic chest pain for 4 years and continues to have pain on a continuous basis, but of variable intensity. However on this admission she stated that her chest pain pattern is different and also she had mildly elevated troponin 0.11, 0.12, 0.13, 0.08 and some new changes on EKG therefore cardiology was consulted and she started on aspirin, statins, beta-blockers and ranolazine. PRN nitrates. Of note patient has chronic chest wall pain. Which is also tender to palpation physical examination. (3) Left lower lobe pulmonary infiltrate Is this a current diagnosis for this admission?: Yes Plan: This pulmonary infiltrate was seen in and April 2018. The CT scan done earlier on the day prior to admission shows improvement from the infiltrate which was previously noted in April 2018. This therefore as noted out not an acute problem although it did resulted in the patient being treated with antibiotics for a pneumonia. No further antibiotic therapy will be given. (4) Vomiting Qualifiers: Vomiting type: unspecified Vomiting Intractability: unspecified Nausea presence: with nausea Qualified Code(s): R11.2 - Nausea with vomiting, unspecified Is this a current diagnosis for this admission?: Yes Plan: Likely viral gastroenteritis. Resolved. Continue antiemetics and IV fluids. Monitor volume status. (5) Abdominal pain, generalized Is this a current diagnosis for this admission?: Yes Plan: Patient's abdominal pain will be treated with morphine sulfate 2 to 4 mg IV every 2 hours on a sliding scale basis. She will otherwise receive supportive and symptomatic cares as well as IV fluids. Daily CBC and metabolic profiles will be obtained as part of her ongoing evaluation.
[2018-08-03] MEDS ORDERED: (PENDING PHARMACY ID) (Nitroglycerin [Nitrostat] 0.3 MG) SL PRN (19:52)
[2018-08-03] MEDS ORDERED: (PENDING PHARMACY ID) (Buspirone Hcl [Buspar 5 Mg Tablet] 5 MG) PO SCH (20:00)
[2018-08-03] MEDS: METOPROLOL TARTRATE 25 MG TABLET PO SCH (23:29)
[2018-08-03] MEDS: ASPIRIN 81 MG TABLET, CHEWABLE PO SCH (23:29)
[2018-08-03] MEDS: OLANZAPINE INJ/PF 10 MG SDV IM SCH (23:31)
[2018-08-03] MEDS: BUSPIRONE HCL 10 MG TABLET PO SCH (23:33)
[2018-08-03] MEDS: ATORVASTATIN CALCIUM 10 MG TABLET PO SCH (23:34)
[2018-08-04] MEDS: METOCLOPRAMIDE HCL INJ/PF 10 MG/2 ML SDV IV SCH ×3 (05:15→17:39)
[2018-08-04] MEDS: HEPARIN SOD (PORCINE) 5,000 UNIT/ML 1 ML SYRINGE SUBCUT SCH ×3 (05:15→22:06)
[2018-08-04 05:52] LABS: HEMATOCRIT 31.8 % (36.0-47.0); HEMOGLOBIN 10.6 g/dL (12.0-15.5); MEAN CORPUSCULAR HEMOGLOBIN 28.6 pg (27.0-33.4); MEAN CORPUSCULAR HGB CONC 33.4 g/dL (32.0-36.0); MEAN CORPUSCULAR VOLUME 86 fl (80-97); PLATELET COUNT 192 10^3/uL (150-450); RED BLOOD COUNT 3.72 10^6/uL (3.72-5.28); RED CELL DISTRIBUTION WIDTH 21.9 % (11.5-14.0); WHITE BLOOD COUNT 6.8 10^3/uL (4.0-10.5)
[2018-08-04 06:15] LABS: ANION GAP 10 (5-19); BLOOD UREA NITROGEN 33 mg/dL (7-20); CALCIUM 10.2 mg/dL (8.4-10.2); CARBON DIOXIDE 25 mmol/L (22-30); CHLORIDE 106 mmol/L (98-107); GLUCOSE 79 mg/dL (75-110); POTASSIUM 3.5 mmol/L (3.6-5.0); SODIUM 140.6 mmol/L (137-145)
[2018-08-04] MEDS ORDERED: FERROUS FUM PO SCH (10:00)
[2018-08-04] MEDS ORDERED: MULTIVIT MINERALS PO SCH (10:00)
[2018-08-04] MEDS: VALPROATE SODIUM SYRUP 250 MG/5 ML UDCUP PO SCH ×3 (10:30→22:06)
[2018-08-04] MEDS: METOPROLOL TARTRATE 25 MG TABLET PO SCH (10:32)
[2018-08-04] MEDS: BUSPIRONE HCL 10 MG TABLET PO SCH (10:32)
[2018-08-04] MEDS: ATORVASTATIN CALCIUM 10 MG TABLET PO SCH (10:32)
[2018-08-04] MEDS: FAMOTIDINE INJ/PF 20 MG/2 ML SDV IV SCH (10:33)
[2018-08-04] MEDS: MULTIVITAMIN ORAL LIQUID 60 ML PO SCH (10:33)
--- NOTE | 2018-08-04 13:11 | EKG REPORT ---
SEVERITY:- ABNORMAL ECG - SINUS RHYTHM BORDERLINE IVCD WITH LAD INFERIOR INFARCT, OLD CONSIDER ANTERIOR INFARCT LATERAL LEADS ARE ALSO INVOLVED : Confirmed by: Agustin Crawford MD 04-Aug-2018 13:11:11
[2018-08-04] MEDS ORDERED: NITROGLYCERIN 0.4 MG/TAB 25 TAB/BOTTLE SL PRN (15:50)
[2018-08-04] MEDS: QUETIAPINE FUMARATE 25 MG TABLET PO SCH (18:04)
--- NOTE | 2018-08-04 18:25 | PDOC PROGRESS REPORT ---
Subjective Progress Note for:: 08/04/18 Subjective:: CHARLEY SHERMAN is a 58 year old female who presented to the emergency room with severe vomiting. She admits that she developed nausea and vomiting with upper abdominal pain early in the day on 08/01/2018. She was subsequently seen in the emergency room and at that time was diagnosed as having a left lower lobe pneumonia based upon CT of the chest abdomen and pelvis findings. She was started on antibiotics and given IV fluids prior to her return to the [facility]. Once back at the senior living her nausea and vomiting returned with more than 20 episodes of vomiting and increasingly severe colicky generalized abdominal pain, thus prompting her return to the ER on the evening of 08/01/2018. Patient has the same chronic chest pain that she has experienced for at least 4 years also present at this time, but denies any other associated symptoms. In the emergency room patient was found to have persistence or slight worsening of her acute kidney injury and slightly elevated cardiac enzymes with tachycardia. Patient was subsequently admitted to the hospital for further evaluation and treatment. 08/04/2018. No acute events overnight. Nausea and vomiting has improved as well as abdominal pain. Pain chest pain has not recurred. Patient is scheduled for stress test tomorrow. Reason For Visit: ACUTE ONSET NAUSEA AND VOMITING WITH ABDOMINAL Physical Exam Vital Signs: Temp Pulse Resp BP Pulse Ox 98.2 F 70 17 121/74 100 08/04/18 14:45 08/04/18 14:45 08/04/18 14:45 08/04/18 14:45 08/04/18 14:45 Intake & Output 08/03/18 08/04/18 08/05/18 06:59 06:59 06:59 Intake Total 2132 1726 320 Balance 2132 1726 320 Weight 59.4 kg 62.5 kg General appearance: PRESENT: no acute distress, well-developed, well-nourished Head exam: PRESENT: atraumatic, normocephalic Respiratory exam: PRESENT: clear to auscultation ailyn. ABSENT: rales, rhonchi, wheezes Cardiovascular exam: PRESENT: RRR. ABSENT: diastolic murmur, rubs, systolic mur mur GI/Abdominal exam: PRESENT: normal bowel sounds, soft. ABSENT: distended, guarding, mass, organolmegaly, rebound, tenderness Neurological exam: PRESENT: alert, awake, oriented to person, oriented to place, CN II-XII grossly intact. ABSENT: motor sensory deficit Results Laboratory Results: 08/04/18 04:49 08/04/18 04:49 08/04/18 08/04/18 04:49 04:49 WBC 6.8 RBC 3.72 Hgb 10.6 L Hct 31.8 L MCV 86 MCH 28.6 MCHC 33.4 RDW 21.9 H Plt Count 192 Sodium 140.6 Potassium 3.5 L Chloride 106 Carbon Dioxide 25 Anion Gap 10 BUN 33 H Creatinine 1.57 H Est GFR ( Amer) 41 L Est GFR (Non-Af Amer) 34 L Glucose 79 Calcium 10.2 Magnesium 2.2 08/01/18 08/02/18 08/02/18 20:58 01:51 08:35 Creatine Kinase 83 CK-MB (CK-2) Troponin I 0.113 0.138 08/02/18 08/02/18 08/02/18 08:35 15:38 15:38 Creatine Kinase 67 CK-MB (CK-2) 3.87 3.75 Troponin I 0.149 0.110 08/02/18 08/02/18 21:07 21:07 Creatine Kinase 58 CK-MB (CK-2) 3.20 Troponin I 0.088 Impressions: Chest X-Ray 08/01/18 20:16 IMPRESSION: 1. No acute pulmonary findings. 2. Previous sternotomy Assessment and Plan - Diagnosis (1) Acute kidney injury Is this a current diagnosis for this admission?: Yes Plan: Likely prerenal induced by low p.o. intake due to nausea and vomiting. Improving. Electrolytes within normal limits. (2) Chest pain Qualifiers: Chest pain type: other chest pain Qualified Code(s): R07.89 - Other chest pain; R07.8 - Other chest pain Is this a current diagnosis for this admission?: Yes Plan: Patient has had chronic chest pain for 4 years and continues to have pain on a continuous basis, but of variable intensity. However on this admission she stated that her chest pain pattern is different and also she had mildly elevated troponin 0.11, 0.12, 0.13, 0.08 and some new changes on EKG therefore cardiology was consulted and she started on aspirin, statins, beta-blockers and ranolazine. PRN nitrates. Of note patient has chronic chest wall pain. Which is also tender to palpation physical examination. (3) Left lower lobe pulmonary infiltrate Is this a current diagnosis for this admission?: Yes Plan: This pulmonary infiltrate was seen in and April 2018. The CT scan done earlier on the day prior to admission shows improvement from the infiltrate which was previously noted in April 2018. This therefore as noted out not an acute problem although it did resulted in the patient being treated with antibiotics for a pneumonia. No further antibiotic therapy will be given. (4) Vomiting Qualifiers: Vomiting type: unspecified Vomiting Intractability: unspecified Nausea presence: with nausea Qualified Code(s): R11.2 - Nausea with vomiting, unspecified Is this a current diagnosis for this admission?: Yes Plan: Likely viral gastroenteritis. Resolved. Continue antiemetics and IV fluids. Monitor volume status. (5) Abdominal pain, generalized Is this a current diagnosis for this admission?: Yes Plan: Patient's abdominal pain will be treated with morphine sulfate 2 to 4 mg IV every 2 hours on a sliding scale basis. She will otherwise receive supportive and symptomatic cares as well as IV fluids. Daily CBC and metabolic profiles will be obtained as part of her ongoing evaluation.
[2018-08-04] MEDS: ASPIRIN 81 MG TABLET, CHEWABLE PO SCH (22:06)
[2018-08-05] MEDS: METOCLOPRAMIDE HCL INJ/PF 10 MG/2 ML SDV IV SCH ×5 (00:40→23:46)
[2018-08-05] MEDS: QUETIAPINE FUMARATE 25 MG TABLET PO SCH ×2 (05:38→17:08)
[2018-08-05] MEDS: HEPARIN SOD (PORCINE) 5,000 UNIT/ML 1 ML SYRINGE SUBCUT SCH ×3 (06:01→21:15)
[2018-08-05 06:40] LABS: ABSOLUTE EOSINOPHILS # (AUTO) 0.2 10^3/uL (0.0-0.6); ABSOLUTE LYMPHOCYTES (AUTO) 2.3 10^3/uL (0.5-4.7); ABSOLUTE MONOCYTES (AUTO) 0.5 10^3/uL (0.1-1.4); ABSOLUTE NEUT (AUTO) 1.9 10^3/uL (1.7-8.2); BASOPHILS % (AUTO) 0.6 % (0-2); EOSINOPHILS % (AUTO) 3.4 % (0-6); HEMATOCRIT 33.1 % (36.0-47.0); HEMOGLOBIN 11.1 g/dL (12.0-15.5); LYMPHOCYTES % (AUTO) 46.8 % (13-45); MEAN CORPUSCULAR HEMOGLOBIN 28.9 pg (27.0-33.4); MEAN CORPUSCULAR HGB CONC 33.6 g/dL (32.0-36.0); MEAN CORPUSCULAR VOLUME 86 fl (80-97); MONOCYTES % (AUTO) 9.6 % (3-13); PLATELET COUNT 175 10^3/uL (150-450); RED BLOOD COUNT 3.85 10^6/uL (3.72-5.28); RED CELL DISTRIBUTION WIDTH 21.9 % (11.5-14.0); SEGMENTED NEUTROPHILS % (AUTO) 39.6 % (42-78); TOTAL CELLS COUNTED % (AUTO) 100 %; WHITE BLOOD COUNT 4.9 10^3/uL (4.0-10.5)
[2018-08-05 06:42] LABS: ALANINE AMINOTRANSFERASE 22 U/L (9-52); ALBUMIN 3.4 g/dL (3.5-5.0); ALKALINE PHOSPHATASE 85 U/L (38-126); ANION GAP 11 (5-19); ASPARTATE AMINO TRANSFERASE 31 U/L (14-36); BILIRUBIN,DIRECT 0.3 mg/dL (0.0-0.4); BILIRUBIN,TOTAL 0.6 mg/dL (0.2-1.3); BLOOD UREA NITROGEN 22 mg/dL (7-20); CALCIUM 10.1 mg/dL (8.4-10.2); CARBON DIOXIDE 25 mmol/L (22-30); CHLORIDE 107 mmol/L (98-107); GLUCOSE 84 mg/dL (75-110); POTASSIUM 3.2 mmol/L (3.6-5.0); SODIUM 142.9 mmol/L (137-145); TOTAL PROTEIN 7.1 g/dL (6.3-8.2)
[2018-08-05] MEDS ORDERED: POTASSIUM CHLORIDE 20 MEQ PACKET PO ONE (09:06)
[2018-08-05] MEDS ORDERED: ATORVASTATIN CALCIUM 10 MG TABLET PO SCH (10:00)
[2018-08-05] MEDS: BUSPIRONE HCL 10 MG TABLET PO SCH (10:31)
[2018-08-05] MEDS: ATORVASTATIN CALCIUM 40 MG TABLET PO SCH (10:32)
[2018-08-05] MEDS: FAMOTIDINE INJ/PF 20 MG/2 ML SDV IV SCH (10:32)
[2018-08-05] MEDS: MULTIVITAMIN ORAL LIQUID 60 ML PO SCH (10:33)
[2018-08-05] MEDS: VALPROATE SODIUM SYRUP 250 MG/5 ML UDCUP PO SCH ×2 (10:33→21:15)
[2018-08-05] MEDS: METOPROLOL TARTRATE 25 MG TABLET PO SCH (10:35)
[2018-08-05] MEDS ORDERED: REGADENOSON INJ 0.4 MG/5 ML DISP.SYRIN IV ONE (10:59)
[2018-08-05 11:25] LABS: BLOOD UREA NITROGEN 22 mg/dL (7-20); CALCIUM 10.8 mg/dL (8.4-10.2); CARBON DIOXIDE 26 mmol/L (22-30); GLUCOSE 111 mg/dL (75-110)
[2018-08-05 11:28] LABS: ANION GAP 13 (5-19); CHLORIDE 105 mmol/L (98-107); SODIUM 143.8 mmol/L (137-145)
[2018-08-05 11:34] LABS: POTASSIUM 3.4 mmol/L (3.6-5.0)
[2018-08-05] MEDS ORDERED: RANOLAZINE 500 MG TAB.SR.12H PO ONE (13:51)
--- NOTE | 2018-08-05 14:02 | Progress Note ---
Provider Note Provider Note: CARDIOLOGY PROGRESS NOTE by Dr. Smita Luque on 08/05/2018. SUBJECTIVE: The patient has no further chest pain or discomfort. There is no PND orthopnea. The patient underwent uneventful Lexiscan Cardiolite stress test today. She has no leg edema. There is no arrhythmia seen on the monitor. There is no PND orthopnea or shortness of breath. There is no TIA CVA symptoms. There is no seizures. PHYSICAL EXAMINATION: z Current Medications Generic Name Dose Route Start Last Admin Trade Name Freq PRN Reason Stop Dose Admin Aspirin 81 mg 08/03/18 22:00 08/04/18 22:06 Aspirin 81 Mg Chewable Tablet PO 09/02/18 21:59 81 mg QHS ISA Administration Atorvastatin Calcium 40 mg 08/05/18 10:00 08/05/18 10:32 Lipitor 40 Mg Tablet PO 09/04/18 09:59 40 mg DAILY ISA Administration Buspirone HCl 5 mg 08/03/18 21:00 08/05/18 10:31 Buspar 10 Mg Tablet PO 09/02/18 20:59 5 mg DAILY ISA Administration Famotidine 20 mg 08/02/18 10:00 08/05/18 10:32 Pepcid Inj/Pf 20 Mg/2 Ml Sdv IV 09/01/18 09:59 20 mg DAILY ISA Administration Heparin Sodium (Porcine) 5,000 unit 08/02/18 14:00 08/05/18 06:01 Heparin Inj 5,000 Units/Ml 1 Ml Syringe SUBCUT 09/01/18 13:59 5,000 unit Q8 ISA Administration Metoclopramide HCl 10 mg 08/02/18 06:45 08/05/18 12:14 Reglan Inj/Pf 10 Mg/2 Ml Sdv IV 09/01/18 06:44 Not Given Q6 ISA Metoprolol Tartrate 25 mg 08/06/18 10:00 Lopressor 25 Mg Tablet PO 09/05/18 09:59 DAILY ISA Multivitamins 5 ml 08/04/18 10:00 08/05/18 10:33 Multiple Vitamin Liquid 60 Ml PO 09/03/18 09:59 5 ml DAILY ISA Administration Nitroglycerin 1 tab 08/04/18 15:50 Nitrostat 0.4 Mg (1/150 Gr) Tabs 25/Bottle SL 09/03/18 15:49 Q5MP PRN CHEST PAIN Quetiapine Fumarate 50 mg 08/04/18 18:45 08/05/18 05:38 Seroquel 25 Mg Tablet PO 09/03/18 18:44 Not Given Q12A IAS Ranolazine 500 mg 08/05/18 13:51 Ranexa 500 Mg Tab.Sr PO 08/05/18 13:52 NOW ONE Sodium Chloride 2.5 ml 08/02/18 14:00 08/05/18 06:01 Saline Flush 2.5 Ml Monoject Prefil Syrin IV 09/01/18 13:59 Not Given Q8 ISA Valproate Sodium 500 mg 08/02/18 10:00 08/05/18 10:33 Depakene Syrup 250 Mg/5 Ml Udcup PO 09/01/18 09:59 500 mg Q12 ISA Administration Discontinued Medications Generic Name Dose Route Start Last Admin Trade Name Freq PRN Reason Stop Dose Admin Atorvastatin Calcium 10 mg 08/03/18 20:00 08/04/18 10:32 Lipitor 10 Mg Tablet PO 09/02/18 19:59 10 mg DAILY ISA Administration Sodium Chloride 1,000 mls @ 0 mls/hr 08/01/18 20:16 08/01/18 23:55 Nacl 0.9% 1000 Ml Iv Soln IV 08/01/18 20:17 Infused BOLUS ONE Infusion Wide Open Sodium Chloride 500 mls @ 0 mls/hr 08/01/18 22:43 08/02/18 01:51 Nacl 0.9% 500 Ml Iv Soln IV 08/01/18 22:44 Infused NOW ONE Infusion Wide Open Lactated Ringer's 1,000 mls @ 250 mls/hr 08/02/18 04:07 08/02/18 11:00 Lactated Ringers 1000 Ml Iv Soln IV Infused CONTINUOUS PRN Infusion THIS MED IS NOT "PRN" Metoprolol Tartrate 12.5 mg 08/03/18 21:00 08/05/18 10:35 Lopressor 25 Mg Tablet PO 09/02/18 20:59 Not Given DAILY ISA Morphine Sulfate 4 mg 08/01/18 22:44 08/01/18 22:53 Morphine 10 Mg/Ml Inj IV 08/01/18 22:45 4 mg NOW ONE Administration Morphine Sulfate 0 mg 08/02/18 06:37 08/02/18 10:21 Morphine 10 Mg/Ml Inj IV 08/09/18 06:36 3 mg Q2HP PRN Administration Pain Per [facility] 5 point scale SD Protocol Olanzapine 10 mg 08/02/18 22:00 08/03/18 23:31 Zyprexa Inj/Pf 10 Mg Sdv IM 09/01/18 21:59 10 mg QHS ISA Administration Ondansetron HCl 4 mg 08/01/18 20:16 08/01/18 20:43 Zofran Inj/Pf 4 Mg/2 Ml Sdv IV 08/01/18 20:17 4 mg NOW ONE Administration Potassium Chloride 40 meq 08/05/18 09:06 08/05/18 10:35 Potassium Chloride 20 Meq Packet PO 08/05/18 09:07 40 meq NOW ONE Administration Promethazine HCl Confirm 08/02/18 03:08 08/02/18 03:14 Phenergan Inj 25 Mg/1 Ml Vial Administered 08/02/18 03:09 Not Given Dose 25 mg .ROUTE .STK-MED ONE Regadenoson 0.4 mg 08/05/18 10:59 Lexiscan Inj 0.4 Mg/5 Ml Disp.Syrin IV 08/05/18 11:00 .STK-MED ONE Labs- Entire Visit 08/01/18 08/01/18 08/01/18 18:53 20:58 20:58 WBC 13.3 H RBC 4.70 Hgb 13.4 Hct 39.6 MCV 84 MCH 28.4 MCHC 33.8 RDW 21.7 H Plt Count 304 Seg Neutrophils % 79.3 H Lymphocytes % 10.9 L Monocytes % 9.7 Eosinophils % 0.0 Basophils % 0.1 Absolute Neutrophils 10.5 H Absolute Lymphocytes 1.4 Absolute Monocytes 1.3 Absolute Eosinophils 0.0 Absolute Basophils 0.0 Platelet Estimate Sodium 139.4 Potassium 4.0 Chloride 98 Carbon Dioxide 22 Anion Gap 19 BUN 45 H Creatinine 1.83 H Est GFR ( Amer) 34 L Est GFR (Non-Af Amer) 28 L Glucose 270 H POC Glucose Calcium 11.9 H Magnesium Total Bilirubin 0.8 Direct Bilirubin 0.5 H Neonat Total Bilirubin Not Reportable Neonat Direct Bilirubin Not Reportable Neonat Indirect Bili Not Reportable AST 40 H ALT 14 Alkaline Phosphatase 136 H Creatine Kinase CK-MB (CK-2) Troponin I Total Protein 9.7 H Albumin 4.8 Lipase 151.8 Urine Color YELLOW Urine Appearance CLOUDY Urine pH 8.0 Ur Specific Sharples 1.026 Urine Protein >=500 H Urine Glucose (UA) >=500 H Urine Ketones TRACE H Urine Blood NEGATIVE Urine Nitrite NEGATIVE Urine Bilirubin NEGATIVE Urine Urobilinogen NEGATIVE Ur Leukocyte Esterase NEGATIVE Urine WBC (Auto) 8 Urine RBC (Auto) 45 Urine Bacteria (Auto) TRACE Squamous Epi Cells Auto 8 Urine Mucus (Auto) RARE Urine Ascorbic Acid NEGATIVE POC Stool Occult Blood Slides for Path Review 08/01/18 08/01/18 08/02/18 20:58 21:04 01:51 WBC RBC Hgb Hct MCV MCH MCHC RDW Plt Count Seg Neutrophils % Lymphocytes % Monocytes % Eosinophils % Basophils % Absolute Neutrophils Absolute Lymphocytes Absolute Monocytes Absolute Eosinophils Absolute Basophils Platelet Estimate Sodium Potassium Chloride Carbon Dioxide Anion Gap BUN Creatinine Est GFR ( Amer) Est GFR (Non-Af Amer) Glucose POC Glucose Calcium Magnesium Total Bilirubin Direct Bilirubin Neonat Total Bilirubin Neonat Direct Bilirubin Neonat Indirect Bili AST ALT Alkaline Phosphatase Creatine Kinase CK-MB (CK-2) Troponin I 0.113 0.138 Total Protein Albumin Lipase Urine Color Urine Appearance Urine pH Ur Specific Sharples Urine Protein Urine Glucose (UA) Urine Ketones Urine Blood Urine Nitrite Urine Bilirubin Urine Urobilinogen Ur Leukocyte Esterase Urine WBC (Auto) Urine RBC (Auto) Urine Bacteria (Auto) Squamous Epi Cells Auto Urine Mucus (Auto) Urine Ascorbic Acid POC Stool Occult Blood NEGATIVE Slides for Path Review 08/02/18 08/02/18 08/02/18 06:50 08:35 08:35 WBC RBC Hgb Hct MCV MCH MCHC RDW Plt Count Seg Neutrophils % Lymphocytes % Monocytes % Eosinophils % Basophils % Absolute Neutrophils Absolute Lymphocytes Absolute Monocytes Absolute Eosinophils Absolute Basophils Platelet Estimate Sodium Potassium Chloride Carbon Dioxide Anion Gap BUN Creatinine Est GFR ( Amer) Est GFR (Non-Af Amer) Glucose POC Glucose 84 Calcium Magnesium Total Bilirubin Direct Bilirubin Neonat Total Bilirubin Neonat Direct Bilirubin Neonat Indirect Bili AST ALT Alkaline Phosphatase Creatine Kinase 83 CK-MB (CK-2) 3.87 Troponin I 0.149 Total Protein Albumin Lipase Urine Color Urine Appearance Urine pH Ur Specific Sharples Urine Protein Urine Glucose (UA) Urine Ketones Urine Blood Urine Nitrite Urine Bilirubin Urine Urobilinogen Ur Leukocyte Esterase Urine WBC (Auto) Urine RBC (Auto) Urine Bacteria (Auto) Squamous Epi Cells Auto Urine Mucus (Auto) Urine Ascorbic Acid POC Stool Occult Blood Slides for Path Review 08/02/18 08/02/18 08/02/18 08:35 08:35 10:43 WBC Cancelled RBC Cancelled Hgb Cancelled Hct Cancelled MCV Cancelled MCH Cancelled MCHC Cancelled RDW Cancelled Plt Count Cancelled Seg Neutrophils % Cancelled Lymphocytes % Cancelled Monocytes % Cancelled Eosinophils % Cancelled Basophils % Cancelled Absolute Neutrophils Cancelled Absolute Lymphocytes Cancelled Absolute Monocytes Cancelled Absolute Eosinophils Cancelled Absolute Basophils Cancelled Platelet Estimate Cancelled Sodium 144.6 Potassium 4.0 Chloride 105 Carbon Dioxide 27 Anion Gap 13 BUN 51 H Creatinine 1.97 H Est GFR ( Amer) 31 L Est GFR (Non-Af Amer) 26 L Glucose 94 POC Glucose 117 H Calcium 10.6 H Magnesium 2.4 H Total Bilirubin 0.5 Direct Bilirubin 0.4 Neonat Total Bilirubin Not Reportable Neonat Direct Bilirubin Not Reportable Neonat Indirect Bili Not Reportable AST 42 H ALT 13 Alkaline Phosphatase 92 Creatine Kinase CK-MB (CK-2) Troponin I Total Protein 8.1 Albumin 3.9 Lipase Urine Color Urine Appearance Urine pH Ur Specific Sharples Urine Protein Urine Glucose (UA) Urine Ketones Urine Blood Urine Nitrite Urine Bilirubin Urine Urobilinogen Ur Leukocyte Esterase Urine WBC (Auto) Urine RBC (Auto) Urine Bacteria (Auto) Squamous Epi Cells Auto Urine Mucus (Auto) Urine Ascorbic Acid POC Stool Occult Blood Slides for Path Review Cancelled 08/02/18 08/02/18 08/02/18 10:51 15:38 15:38 WBC 13.7 H RBC 4.39 Hgb 12.5 Hct 37.4 MCV 85 MCH 28.4 MCHC 33.3 RDW 22.3 H Plt Count 216 Seg Neutrophils % 58.0 Lymphocytes % 28.3 Monocytes % 12.8 Eosinophils % 0.3 Basophils % 0.6 Absolute Neutrophils 8.0 Absolute Lymphocytes 3.9 Absolute Monocytes 1.8 H Absolute Eosinophils 0.0 Absolute Basophils 0.1 Platelet Estimate Sodium Potassium Chloride Carbon Dioxide Anion Gap BUN Creatinine Est GFR ( Amer) Est GFR (Non-Af Amer) Glucose POC Glucose Calcium Magnesium Total Bilirubin Direct Bilirubin Neonat Total Bilirubin Neonat Direct Bilirubin Neonat Indirect Bili AST ALT Alkaline Phosphatase Creatine Kinase 67 CK-MB (CK-2) 3.75 Troponin I 0.110 Total Protein Albumin Lipase Urine Color Urine Appearance Urine pH Ur Specific Sharples Urine Protein Urine Glucose (UA) Urine Ketones Urine Blood Urine Nitrite Urine Bilirubin Urine Urobilinogen Ur Leukocyte Esterase Urine WBC (Auto) Urine RBC (Auto) Urine Bacteria (Auto) Squamous Epi Cells Auto Urine Mucus (Auto) Urine Ascorbic Acid POC Stool Occult Blood Slides for Path Review 08/02/18 08/02/18 08/02/18 16:08 21:07 21:07 WBC RBC Hgb Hct MCV MCH MCHC RDW Plt Count Seg Neutrophils % Lymphocytes % Monocytes % Eosinophils % Basophils % Absolute Neutrophils Absolute Lymphocytes Absolute Monocytes Absolute Eosinophils Absolute Basophils Platelet Estimate Sodium Potassium Chloride Carbon Dioxide Anion Gap BUN Creatinine Est GFR ( Amer) Est GFR (Non-Af Amer) Glucose POC Glucose 74 Calcium Magnesium Total Bilirubin Direct Bilirubin Neonat Total Bilirubin Neonat Direct Bilirubin Neonat Indirect Bili AST ALT Alkaline Phosphatase Creatine Kinase 58 CK-MB (CK-2) 3.20 Troponin I 0.088 Total Protein Albumin Lipase Urine Color Urine Appearance Urine pH Ur Specific Sharples Urine Protein Urine Glucose (UA) Urine Ketones Urine Blood Urine Nitrite Urine Bilirubin Urine Urobilinogen Ur Leukocyte Esterase Urine WBC (Auto) Urine RBC (Auto) Urine Bacteria (Auto) Squamous Epi Cells Auto Urine Mucus (Auto) Urine Ascorbic Acid POC Stool Occult Blood Slides for Path Review 08/03/18 08/03/18 08/03/18 07:13 07:13 09:21 WBC Cancelled 7.0 RBC Cancelled 3.84 Hgb Cancelled 11.1 L Hct Cancelled 33.3 L MCV Cancelled 87 MCH Cancelled 28.8 MCHC Cancelled 33.3 RDW Cancelled 22.0 H Plt Count Cancelled 183 Seg Neutrophils % Lymphocytes % Monocytes % Eosinophils % Basophils % Absolute Neutrophils Absolute Lymphocytes Absolute Monocytes Absolute Eosinophils Absolute Basophils Platelet Estimate Cancelled Sodium 145.5 H Potassium 4.3 Chloride 109 H Carbon Dioxide 24 Anion Gap 13 BUN 49 H Creatinine 1.90 H Est GFR ( Amer) 33 L Est GFR (Non-Af Amer) 27 L Glucose 73 L POC Glucose Calcium 10.2 Magnesium 2.3 Total Bilirubin 0.7 Direct Bilirubin 0.5 H Neonat Total Bilirubin Not Reportable Neonat Direct Bilirubin Not Reportable Neonat Indirect Bili Not Reportable AST 63 H ALT 28 Alkaline Phosphatase 77 Creatine Kinase CK-MB (CK-2) Troponin I Total Protein 7.2 Albumin 3.5 Lipase Urine Color Urine Appearance Urine pH Ur Specific Sharples Urine Protein Urine Glucose (UA) Urine Ketones Urine Blood Urine Nitrite Urine Bilirubin Urine Urobilinogen Ur Leukocyte Esterase Urine WBC (Auto) Urine RBC (Auto) Urine Bacteria (Auto) Squamous Epi Cells Auto Urine Mucus (Auto) Urine Ascorbic Acid POC Stool Occult Blood Slides for Path Review Cancelled 08/04/18 08/04/18 08/04/18 04:49 04:49 11:34 WBC 6.8 RBC 3.72 Hgb 10.6 L Hct 31.8 L MCV 86 MCH 28.6 MCHC 33.4 RDW 21.9 H Plt Count 192 Seg Neutrophils % Lymphocytes % Monocytes % Eosinophils % Basophils % Absolute Neutrophils Absolute Lymphocytes Absolute Monocytes Absolute Eosinophils Absolute Basophils Platelet Estimate Sodium 140.6 Potassium 3.5 L Chloride 106 Carbon Dioxide 25 Anion Gap 10 BUN 33 H Creatinine 1.57 H Est GFR ( Amer) 41 L Est GFR (Non-Af Amer) 34 L Glucose 79 POC Glucose 154 H Calcium 10.2 Magnesium 2.2 Total Bilirubin Direct Bilirubin Neonat Total Bilirubin Neonat Direct Bilirubin Neonat Indirect Bili AST ALT Alkaline Phosphatase Creatine Kinase CK-MB (CK-2) Troponin I Total Protein Albumin Lipase Urine Color Urine Appearance Urine pH Ur Specific Sharples Urine Protein Urine Glucose (UA) Urine Ketones Urine Blood Urine Nitrite Urine Bilirubin Urine Urobilinogen Ur Leukocyte Esterase Urine WBC (Auto) Urine RBC (Auto) Urine Bacteria (Auto) Squamous Epi Cells Auto Urine Mucus (Auto) Urine Ascorbic Acid POC Stool Occult Blood Slides for Path Review 08/04/18 08/05/18 08/05/18 16:27 05:49 05:49 WBC 4.9 RBC 3.85 Hgb 11.1 L Hct 33.1 L MCV 86 MCH 28.9 MCHC 33.6 RDW 21.9 H Plt Count 175 Seg Neutrophils % 39.6 L Lymphocytes % 46.8 H Monocytes % 9.6 Eosinophils % 3.4 Basophils % 0.6 Absolute Neutrophils 1.9 Absolute Lymphocytes 2.3 Absolute Monocytes 0.5 Absolute Eosinophils 0.2 Absolute Basophils 0.0 Platelet Estimate Sodium 142.9 Potassium 3.2 L Chloride 107 Carbon Dioxide 25 Anion Gap 11 BUN 22 H Creatinine 1.33 H Est GFR ( Amer) 49 L Est GFR (Non-Af Amer) 41 L Glucose 84 POC Glucose 100 Calcium 10.1 Magnesium 2.0 Total Bilirubin 0.6 Direct Bilirubin 0.3 Neonat Total Bilirubin Not Reportable Neonat Direct Bilirubin Not Reportable Neonat Indirect Bili Not Reportable AST 31 ALT 22 Alkaline Phosphatase 85 Creatine Kinase CK-MB (CK-2) Troponin I Total Protein 7.1 Albumin 3.4 L Lipase Urine Color Urine Appearance Urine pH Ur Specific Shar[place] Urine Protein Urine Glucose (UA) Urine Ketones Urine Blood Urine Nitrite Urine Bilirubin Urine Urobilinogen Ur Leukocyte Esterase Urine WBC (Auto) Urine RBC (Auto) Urine Bacteria (Auto) Squamous Epi Cells Auto Urine Mucus (Auto) Urine Ascorbic Acid POC Stool Occult Blood Slides for Path Review 08/05/18 10:58 WBC RBC Hgb Hct MCV MCH MCHC RDW Plt Count Seg Neutrophils % Lymphocytes % Monocytes % Eosinophils % Basophils % Absolute Neutrophils Absolute Lymphocytes Absolute Monocytes Absolute Eosinophils Absolute Basophils Platelet Estimate Sodium 143.8 Potassium 3.4 L Chloride 105 Carbon Dioxide 26 Anion Gap 13 BUN 22 H Creatinine 1.36 H Est GFR ( Amer) 48 L Est GFR (Non-Af Amer) 40 L Glucose 111 H POC Glucose Calcium 10.8 H Magnesium Total Bilirubin Direct Bilirubin Neonat Total Bilirubin Neonat Direct Bilirubin Neonat Indirect Bili AST ALT Alkaline Phosphatase Creatine Kinase CK-MB (CK-2) Troponin I Total Protein Albumin Lipase Urine Color Urine Appearance Urine pH Ur Specific [place] Urine Protein Urine Glucose (UA) Urine Ketones Urine Blood Urine Nitrite Urine Bilirubin Urine Urobilinogen Ur Leukocyte Esterase Urine WBC (Auto) Urine RBC (Auto) Urine Bacteria (Auto) Squamous Epi Cells Auto Urine Mucus (Auto) Urine Ascorbic Acid POC Stool Occult Blood Slides for Path Review The patient's IV Lexiscan Cardiolite stress test shows: Evidence of prior inf erior wall UT with no reversible ischemia. There is mild reversible ischemia in the lateral wall. LV ejection fraction was moderately reduced by SPECT images by gating. Will recheck echo to estimate the patient's LV ejection fraction. Impression/Recommendation: 1. NSTEMI : Atypical Chest Pain with Elevated Troponin I. The patient also has chest wall pain. 2. Abnormal Cardiolite stress test with results as mentioned above. Reviewed the patient's renal status and the patient's atypical chest pain would recommend maximizing medical therapy, and consider cardiac catheterization if patient has intractable anginal symptoms on good medical therapy. 3. Coronary artery disease with history of prior UT and history of stents. Would recommend maximizing medical therapy. Continue statin and aspirin. Continue beta-campos. Will increase the patient's Toprol XL to 25 mg p.o. once a day. Will add Ranexa at 500 mg p.o. twice daily, and will not increase it since the patient's renal function is compromised. Records show the patient has a right coronary artery stent in 2012. 4. Diabetes mellitus with diabetic renal disease. 5. Chronic kidney disease stage 3. Will follow, and if the patient desires we will also follow the patient in our as an outpatient. 6. History of hypertension: Blood pressure and blood pressure low. 7. History of seizure disorder. 8. History of anxiety and depression: Continue psych medication. 9. Schizophrenia: The patient has some periodic fits of crying. Recommend psych evaluation. Medications reviewed. Medications added. Management plan discussed with attending physician on the case. Will maximize the patient medical therapy. Medical decision making is of high complexity. I have discussed the stress test with the patient and with the hospitalist taking care of the patient. We will check an echo for LV ejection fraction correlation.
--- NOTE | 2018-08-05 19:25 | PDOC PROGRESS REPORT ---
Subjective Progress Note for:: 08/05/18 Subjective:: CHARLEY SHERMAN is a 58 year old female who presented to the emergency room with severe vomiting. She admits that she developed nausea and vomiting with upper abdominal pain early in the day on 08/01/2018. She was subsequently seen in the emergency room and at that time was diagnosed as having a left lower lobe pneumonia based upon CT of the chest abdomen and pelvis findings. She was started on antibiotics and given IV fluids prior to her return to the correction. Once back at the correction her nausea and vomiting returned with more than 20 episodes of vomiting and increasingly severe colicky generalized abdominal pain, thus prompting her return to the ER on the evening of 08/01/2018. Patient has the same chronic chest pain that she has experienced for at least 4 years also present at this time, but denies any other associated symptoms. In the emergency room patient was found to have persistence or slight worsening of her acute kidney injury and slightly elevated cardiac enzymes with tachycardia. Patient was subsequently admitted to the hospital for further evaluation and treatment. 08/04/2018. No acute events overnight. Nausea and vomiting has improved as well as abdominal pain. Pain chest pain has not recurred. Patient is scheduled for stress test tomorrow. 08/05/2018. No acute events overnight. Nausea and vomiting has improved. His c hest pain has not recurred. Status post nuclear stress test today. Reason For Visit: ACUTE ONSET NAUSEA AND VOMITING WITH ABDOMINAL Physical Exam Vital Signs: Temp Pulse Resp BP Pulse Ox 98.4 F 88 16 142/88 H 100 08/05/18 16:00 08/05/18 16:15 08/05/18 16:00 08/05/18 16:15 08/05/18 16:15 Intake & Output 08/04/18 08/05/18 08/06/18 06:59 06:59 06:59 Intake Total 1726 888 440 Balance 1726 888 440 Weight 62.5 kg 61.7 kg General appearance: PRESENT: no acute distress, well-developed, well-nourished Head exam: PRESENT: atraumatic, normocephalic Respiratory exam: PRESENT: clear to auscultation ailyn. ABSENT: rales, rhonchi, wheezes Cardiovascular exam: PRESENT: RRR. ABSENT: diastolic murmur, rubs, systolic murmur GI/Abdominal exam: PRESENT: normal bowel sounds, soft. ABSENT: distended, guarding, mass, organolmegaly, rebound, tenderness Neurological exam: PRESENT: alert, awake, oriented to person, oriented to place, oriented to time, oriented to situation, CN II-XII grossly intact. ABSENT: motor sensory deficit Results Laboratory Results: 08/05/18 05:49 08/05/18 10:58 08/05/18 08/05/18 08/05/18 05:49 05:49 10:58 WBC 4.9 RBC 3.85 Hgb 11.1 L Hct 33.1 L MCV 86 MCH 28.9 MCHC 33.6 RDW 21.9 H Plt Count 175 Seg Neutrophils % 39.6 L Lymphocytes % 46.8 H Monocytes % 9.6 Eosinophils % 3.4 Basophils % 0.6 Absolute Neutrophils 1.9 Absolute Lymphocytes 2.3 Absolute Monocytes 0.5 Absolute Eosinophils 0.2 Absolute Basophils 0.0 Sodium 142.9 143.8 Potassium 3.2 L 3.4 L Chloride 107 105 Carbon Dioxide 25 26 Anion Gap 11 13 BUN 22 H 22 H Creatinine 1.33 H 1.36 H Est GFR ( Amer) 49 L 48 L Est GFR (Non-Af Amer) 41 L 40 L Glucose 84 111 H Calcium 10.1 10.8 H Magnesium 2.0 Total Bilirubin 0.6 AST 31 ALT 22 Alkaline Phosphatase 85 Total Protein 7.1 Albumin 3.4 L 08/01/18 08/02/18 08/02/18 20:58 01:51 08:35 Creatine Kinase 83 CK-MB (CK-2) Troponin I 0.113 0.138 08/02/18 08/02/18 08/02/18 08:35 15:38 15:38 Creatine Kinase 67 CK-MB (CK-2) 3.87 3.75 Troponin I 0.149 0.110 08/02/18 08/02/18 21:07 21:07 Creatine Kinase 58 CK-MB (CK-2) 3.20 Troponin I 0.088 Impressions: Chest X-Ray 08/01/18 20:16 IMPRESSION: 1. No acute pulmonary findings. 2. Previous sternotomy Assessment and Plan - Diagnosis (1) Chest pain Qualifiers: Chest pain type: other chest pain Qualified Code(s): R07.89 - Other chest pain; R07.8 - Other chest pain Is this a current diagnosis for this admission?: Yes Plan: Troponins on admission 0.10.08. Resolved. Started on aspirin, statins, beta- blockers and ranolazine. PRN nitrates. Of note patient has chronic chest wall pain. Which is also tender to palpation physical examination. 08/05/2017. Patient had Cardiolite stress test as per my conversation with Dr. Luque technology analyst. Started on ranolazine, Toprol XL 25 mg p.o. daily. Recommendation is to is to maximize medical therapy and consider cardiac catheterization as outpatient if she has intractable anginal symptoms. Patient was provided with Dr. Luque's information and was asked to follow-up with him as outpatient. (2) Abnormal nuclear cardiac imaging test Is this a current diagnosis for this admission?: Yes Plan: 08/05/2017. Patient had Cardiolite stress test as per my conversation with Dr. Luque technology analyst. Started on ranolazine, Toprol XL 25 mg p.o. daily. Recommendation is to is to maximize medical therapy and consider cardiac catheterization as outpatient if she has intractable anginal symptoms. Patient was provided with Dr. Luque's information and was asked to follow-up with him as outpatient. (3) Acute kidney injury Is this a current diagnosis for this admission?: Yes Plan: Likely prerenal induced by low p.o. intake due to nausea and vomiting. Improving. Back to baseline. Electrolytes within normal limits. (4) Left lower lobe pulmonary infiltrate Is this a current diagnosis for this admission?: Yes Plan: This pulmonary infiltrate was seen in and April 2018. The CT scan done earlier on the day prior to admission shows improvement from the infiltrate which was previously noted in April 2018. This therefore as noted out not an acute problem although it did resulted in the patient being treated with antibiotics for a pneumonia. No further antibiotic therapy will be given. (5) Vomiting Qualifiers: Vomiting type: unspecified Vomiting Intractability: unspecified Nausea presence: with nausea Qualified Code(s): R11.2 - Nausea with vomiting, unspecified Is this a current diagnosis for this admission?: Yes Plan: Likely viral gastroenteritis. Resolved. Continue antiemetics and IV fluids. Monitor volume status. (6) CAD (coronary artery disease) Qualifiers: Coronary Disease-Associated Artery/Lesion type: unspecified vessel or lesion type [place] vs. transplanted heart: [place] heart Associated angina: with unspecified angina Qualified Code(s): I25.119 - Atherosclerotic heart disease of [place] coronary artery with unspecified angina pectoris Is this a current diagnosis for this admission?: No Plan: History of CAD. Status post stent placement in 2012. Continue antiplatelets, beta-blockers, statins. (7) Hypotension Qualifiers: Hypotension type: unspecified hypotension type Qualified Code(s): I95.9 - Hypotension, unspecified Is this a current diagnosis for this admission?: Yes Plan: Resolved this was likely acute due to nausea vomiting and volume depletion. Admitted to telemetry. Volume resuscitation. Vitals monitored. Clonidine DC'd. Normotensive on the day of discharge.
[2018-08-05] MEDS: ASPIRIN 81 MG TABLET, CHEWABLE PO SCH (21:15)
[2018-08-06] MEDS: HEPARIN SOD (PORCINE) 5,000 UNIT/ML 1 ML SYRINGE SUBCUT SCH ×2 (05:54→13:15)
[2018-08-06] MEDS: METOCLOPRAMIDE HCL INJ/PF 10 MG/2 ML SDV IV SCH ×2 (05:54→12:06)
[2018-08-06] MEDS: QUETIAPINE FUMARATE 25 MG TABLET PO SCH (05:55)
[2018-08-06] MEDS: FAMOTIDINE INJ/PF 20 MG/2 ML SDV IV SCH (09:18)
[2018-08-06] MEDS: ATORVASTATIN CALCIUM 40 MG TABLET PO SCH (09:19)
[2018-08-06] MEDS: BUSPIRONE HCL 10 MG TABLET PO SCH (09:19)
[2018-08-06] MEDS: VALPROATE SODIUM SYRUP 250 MG/5 ML UDCUP PO SCH (09:24)
[2018-08-06] MEDS: MULTIVITAMIN ORAL LIQUID 60 ML PO SCH (09:24)
[2018-08-06] MEDS ORDERED: METOPROLOL TARTRATE 25 MG TABLET PO SCH (10:00)
--- NOTE | 2018-08-06 15:33 | PDOC TRANSFER SUMMARY ---
General Admission Date/PCP: 08/02/18 03:25 TREVON SKAGGS PA-C Resuscitation Status: Full Code - Transfer Diagnosis (1) Chest pain Is this a current diagnosis for this admission?: Yes (2) Acute kidney injury Is this a current diagnosis for this admission?: Yes (3) Abnormal nuclear cardiac imaging test Is this a current diagnosis for this admission?: Yes (4) Left lower lobe pulmonary infiltrate Is this a current diagnosis for this admission?: Yes (5) Vomiting Is this a current diagnosis for this admission?: Yes (6) Abdominal pain, generalized Is this a current diagnosis for this admission?: Yes - Transfer Medications Home Medications: Acetaminophen [Tylenol] 650 mg PO Q6HP PRN 07/27/18 Allopurinol [Zyloprim 100 mg Tablet] 100 mg PO DAILY 07/27/18 Aspirin [Aspirin 81 mg Chewable Tablet] 81 mg PO QHS 07/27/18 Buspirone HCl [Buspar 5 mg Tablet] 5 mg PO DAILY 07/27/18 Famotidine [Pepcid] 20 mg PO BID 07/27/18 Ipratropium/Albuterol Sulfate [Duoneb 3 ml Ampul] 3 ml NEB RTQ6HP PRN 07/27/18 Metoprolol Tartrate [Lopressor 25 mg Tablet] 12.5 mg PO DAILY 07/27/18 Multivit-Minerals/Ferrous Fum [Multivitamin Liquid] 5 ml PO DAILY 07/27/18 Mupirocin [Bactroban 2% Ointment 22 gm] 1 applic TP BID 07/27/18 Nitroglycerin [Nitrostat] 0.3 mg SL Q5MP PRN 07/27/18 Nut.tx.gluc Intol,Lf,Soy/Fiber [Diabetisource AC 1.2 Sabino Liq] 240 ml PO DAILY 07/27/18 Polyethylene Glycol 3350 [Miralax Powder 17 gm/Packet] 1 packet PO DAILY 07/27/18 Quetiapine Fumarate [Seroquel] 50 mg PO BID 07/27/18 Valproate Sodium [Depakene Syrup 250 mg/5 ml Udcup] 500 mg PO Q12 07/27/18 Transfer Medications: Current Medications Aspirin (Aspirin 81 Mg Chewable Tablet) 81 mg PO QHS ISA Stop: 09/02/18 21:59 Last Admin: 08/05/18 21:15 Dose: 81 mg Documented by: Atorvastatin Calcium (Lipitor 40 Mg Tablet) 40 mg PO DAILY ISA Stop: 09/04/18 09:59 Last Admin: 08/06/18 09:19 Dose: 40 mg Documented by: Buspirone HCl (Buspar 10 Mg Tablet) 5 mg PO DAILY ISA Stop: 09/02/18 20:59 Last Admin: 08/06/18 09:19 Dose: 5 mg Documented by: Famotidine (Pepcid Inj/Pf 20 Mg/2 Ml Sdv) 20 mg IV DAILY ISA Stop: 09/01/18 09:59 Last Admin: 08/06/18 09:18 Dose: 20 mg Documented by: Heparin Sodium (Porcine) (Heparin Inj 5,000 Units/Ml 1 Ml Syringe) 5,000 unit SUBCUT Q8 ISA Stop: 09/01/18 13:59 Last Admin: 08/06/18 13:15 Dose: 5,000 unit Documented by: Metoclopramide HCl (Reglan Inj/Pf 10 Mg/2 Ml Sdv) 10 mg IV Q6 [facility] Stop: 09/01/18 06:44 Last Admin: 08/06/18 12:06 Dose: 10 mg Documented by: Metoprolol Tartrate (Lopressor 25 Mg Tablet) 25 mg PO DAILY [facility] Stop: 09/05/18 09:59 Last Admin: 08/06/18 09:19 Dose: 25 mg Documented by: Multivitamins (Multiple Vitamin Liquid 60 Ml) 5 ml PO DAILY ISA Stop: 09/03/18 09:59 Last Admin: 08/06/18 09:24 Dose: 5 ml Documented by: Nitroglycerin (Nitrostat 0.4 Mg (1/150 Gr) Tabs 25/Bottle) 1 tab SL Q5MP PRN PRN Reason: CHEST PAIN Stop: 09/03/18 15:49 Quetiapine Fumarate (Seroquel 25 Mg Tablet) 50 mg PO Q12A [facility] Stop: 09/03/18 18:44 Last Admin: 08/06/18 05:55 Dose: 50 mg Documented by: Sodium Chloride (Saline Flush 2.5 Ml Monoject Prefil Syrin) 2.5 ml IV Q8 [facility]A Stop: 09/01/18 13:59 Last Admin: 08/06/18 13:17 Dose: 2.5 ml Documented by: Valproate Sodium (Depakene Syrup 250 Mg/5 Ml Udcup) 500 mg PO Q12 [facility] Stop: 09/01/18 09:59 Last Admin: 08/06/18 09:24 Dose: 500 mg Documented by: - Allergies Allergies/Adverse Reactions: haloperidol [From Haldol] Allergy (Unknown, Verified 03/07/18 13:36) Hospital Course Hospital Course: CHARLEY SHERMAN is a 58 year old female who presented to the emergency room with severe vomiting. She admits that she developed nausea and vomiting with upper abdominal pain early in the day on 08/01/2018. She was subsequently seen in the emergency room and at that time was diagnosed as having a left lower lobe pneumonia based upon CT of the chest abdomen and pelvis findings. She was started on antibiotics and given IV fluids prior to her return to the longterm. Once back at the longterm her nausea and vomiting returned with more than 20 episodes of vomiting and increasingly severe colicky generalized abdominal pain, thus prompting her return to the ER on the evening of 08/01/2018. Patient has the same chronic chest pain that she has experienced for at least 4 years also present at this time, but denies any other associated symptoms. In the emergency room patient was found to have persistence or slight worsening of her acute kidney injury and slightly elevated cardiac enzymes with tachycardia. Patient was subsequently admitted to the hospital for further evaluation and treatment. (1) Chest pain 10.08. Resolved. Started on aspirin, statins, beta-blockers and ranolazine. PRN nitrates. Of note patient has chronic chest wall pain. Which is also tender to palpation physical examination. 08/05/2017. Patient had Cardiolite stress test as per my conversation with Dr. Luque pickling machine operator. Started on ranolazine, Toprol XL 25 mg p.o. daily. Recommendation is to is to maximize medical therapy and consider cardiac catheterization as outpatient if she has intractable anginal symptoms. Patient was provided with Dr. Luque's information and was asked to follow-up with him as outpatient. (2) Abnormal nuclear cardiac imaging test 08/05/2017. Patient had Cardiolite stress test as per my conversation with Dr. Luque pickling machine operator. Started on ranolazine, Toprol XL 25 mg p.o. daily. Recommendation is to is to maximize medical therapy and consider cardiac catheterization as outpatient if she has intractable anginal symptoms. Patient was provided with Dr. Luque's information and was asked to follow-up with him as outpatient. (3) Acute kidney injury Likely prerenal induced by low p.o. intake due to nausea and vomiting. Improving. Back to baseline. Electrolytes within normal limits. (4) Left lower lobe pulmonary infiltrate This pulmonary infiltrate was seen in and April 2018. The CT scan done earlier on the day prior to admission shows improvement from the infiltrate which was previously noted in April 2018. This therefore as noted out not an acute problem although it did resulted in the patient being treated with antibiotics for a pneumonia. No further antibiotic therapy will be given. (5) Vomiting Likely viral gastroenteritis. Resolved. Continue antiemetics and IV fluids. Monitor volume status. (6) CAD (coronary artery disease) History of CAD. Status post stent placement in 2012. Continue antiplatelets, beta-blockers, statins. Physical Exam Vital Signs: Temp Pulse Resp BP Pulse Ox 98.3 F 74 12 126/69 H 100 08/06/18 11:09 08/06/18 11:09 08/06/18 11:09 08/06/18 11:09 08/06/18 11:09 Intake & Output 08/05/18 08/06/18 08/07/18 06:59 06:59 06:59 Intake Total 888 760 120 Balance 888 760 120 Weight 61.7 kg 60.4 kg General appearance: PRESENT: no acute distress, well-developed, well-nourished Head exam: PRESENT: atraumatic, normocephalic Respiratory exam: PRESENT: clear to auscultation ailyn. ABSENT: rales, rhonchi, wheezes Cardiovascular exam: PRESENT: RRR. ABSENT: diastolic murmur, rubs, systolic murmur GI/Abdominal exam: PRESENT: normal bowel sounds, soft, other - PEG tube in place. ABSENT: distended, guarding, mass, organolmegaly, rebound, tenderness Extremities exam: PRESENT: full ROM. ABSENT: calf tenderness, clubbing, pedal edema Neurological exam: PRESENT: alert, awake, oriented to person, oriented to place, oriented to time, CN II-XII grossly intact. ABSENT: motor sensory deficit Results Laboratory Results: 08/05/18 05:49 08/05/18 10:58 08/01/18 08/02/18 08/02/18 20:58 01:51 08:35 Creatine Kinase 83 CK-MB (CK-2) Troponin I 0.113 0.138 08/02/18 08/02/18 08/02/18 08:35 15:38 15:38 Creatine Kinase 67 CK-MB (CK-2) 3.87 3.75 Troponin I 0.149 0.110 08/02/18 08/02/18 21:07 21:07 Creatine Kinase 58 CK-MB (CK-2) 3.20 Troponin I 0.088 Impressions: Chest X-Ray 08/01/18 20:16 IMPRESSION: 1. No acute pulmonary findings. 2. Previous sternotomy
[2018-08-06 16:13] VITALS: BP 115/68
[2018-08-06] MEDS ORDERED: POTASSIUM CHLORIDE 10 MEQ CAPSULE.ER PO ONE (17:00)
--- NOTE | 2018-08-07 20:29 | XCELERA REPORT ---
[address] [address] Transthoracic Echocardiogram Report Name: CHARLEY SHERMAN Age: 58 yrs Gender: Female : 1960 Patient Status: Inpatient Patient Location: [address] [place], [place] [address]A Study Date: 08/05/2018 02:28 PM Height: 66 in Weight: 136 lb BSA: 1.7 m2 Procedure: A two-dimensional transthoracic echocardiogram with color flow and Doppler was performed. Study Quality: Fair. Reason For Study: CAD /NSTEMI History: CAD /NSTEMI. Ordering Physician: SMITA FLORES Performed By: Nery Phillips Interpretation Summary The left ventricle is normal in size. LV EF is 65% The left ventricular ejection fraction is within normal limits. Doppler measurements suggest impaired left ventricular relaxation, which is associated with grade I/IV or mild diastolic dysfunction There us hypokinesis of the inferior wall. The right ventricle is normal in size and function. The right ventricle is not well visualized secondary to technical limitations The right atrium is normal. The left atrial size is normal. Probably no ASD ,VSD , or PFO seen. There is borderline mitral valve prolapse. There is no vegetation seen on the mitral valve. There is no mitral valve stenosis. There is a trace amount of mitral regurgitation There is no aortic valvular vegetation. There is no aortic valve stenosis There is no LVOT obstruction. No aortic regurgitation is present. There is no tricuspid stenosis. There is a mild amount of tricuspid regurgitation Upper normal RVSP to mild pulmonary hypertension.RVSP is 30 to 35 mm of Hg , with RA mean of 5 to 10. There is no pulmonic valvular stenosis. There is a trace amount of pulmonic regurgitation The aortic root is normal size. The inferior vena cava appeared normal and decreased > 50% with respiration (RAP 5-10 mmHg) There is no pericardial effusion. MMode/2D Measurements & Calculations RVDd: 3.1 cm LVIDd: 4.5 cm FS: 40.8 % Ao root diam: 2.4 cm IVSd: 0.81 cm LVIDs: 2.7 cm EDV(Teich): 94.1 ml Ao root area: 4.5 cm2 LVPWd: 1.1 cm ESV(Teich): 26.6 ml EF(Teich): 71.7 % Doppler Measurements & Calculations MV E max linwood: MV dec slope: Ao V2 max: LV V1 max P.9 cm/sec 467.9 cm/sec2 143.9 cm/sec 3.4 mmHg MV A max linwood: MV dec time: 0.18 sec Ao max P.3 mmHgLV V1 max: 103.2 cm/sec 91.6 cm/sec MV E/A: 0.82 PA V2 max: PI end-d linwood: TR max linwood: 80.6 cm/sec 79.4 cm/sec 249.3 cm/sec PA max P.6 mmHg TR max P.9 mmHg Left Ventricle The left ventricle is normal in size. There is normal left ventricular wall thickness. LV EF is 65%. The left ventricular ejection fraction is within normal limits. Doppler measurements suggest impaired left ventricular relaxation, which is associated with grade I/IV or mild diastolic dysfunction. There us hypokinesis of the inferior wall. Right Ventricle The right ventricle is normal in size and function. The right ventricle is not well visualized secondary to technical limitations. Atria The right atrium is normal. The left atrial size is normal. Probably no ASD ,VSD , or PFO seen. Mitral Valve There is borderline mitral valve prolapse. There is no vegetation seen on the mitral valve. There is no mitral valve stenosis. There is a trace amount of mitral regurgitation. Aortic Valve There is no aortic valvular vegetation. There is no aortic valve stenosis. There is no LVOT obstruction. No aortic regurgitation is present. Tricuspid Valve There is no tricuspid stenosis. There is a mild amount of tricuspid regurgitation. Upper normal RVSP to mild pulmonary hypertension.RVSP is 30 to 35 mm of Hg , with RA mean of 5 to 10. Pulmonic Valve There is no pulmonic valvular stenosis. There is a trace amount of pulmonic regurgitation. Great Vessels The aortic root is normal size. The inferior vena cava appeared normal and decreased > 50% with respiration (RAP 5-10 mmHg). Effusions There is no pericardial effusion. : SMITA FLORES > Smita Flores
--- NOTE | 2018-08-07 22:27 | DRAGON STRESS TEST REPORT ---
Intravenous Lexiscan Cardiolite stress test using single photon emmision computerized tomography. Date of procedure: 08/05/2018. Ordering Provider: Dr. Smita Luque. Patient's status: In Patient Indication: Chest pain. Patient with a history of CAD and now has troponin elevation consistent with non-ST elevation IL.. Coronary risk factors: Age, diabetes mellitus, hypertension, family history of coronary artery disease, and dyslipidemia Resting EKG: Sinus rhythm nonspecific T changes lateral leads. Poor R wave progression leads V1 to V6. Stress EKG: No changes of ischemia. The patient has no chest pain or discomfort, and there were no arrhythmias seen. Reason for termination: Protocol. Conclusions: Normal EKG and hemodynamic response to IV Lexiscan. Nuclear data: At rest the patient was given 10.81 millicuries of technetium 99m sestamibi injected intravenously. As per protocol rest non gated SPECT images were obtained. Subsequently the patient was given intravenous Lexiscan at a dose of 0.4 mg in 5 mL intravenously, followed by flush with normal saline. Subsequently the stress dose of 31.1 millicuries of technetium 99m sestamibi was injected intravenously. As per protocol stress gated images were obtained. Nuclear interpretation: Review of images showed that there is a mild perfusion defect involving the inferior wall in both rest and stress images. There was no relative change in the intensity of the perfusion defect in the rest and stress images. This area had diminished motion contraction and thickening by gated study consistent with prior myocardial infarction. There is also mild perfusion defect affecting the lateral wall in the stress images which normalizes in the rest images. This area had normal motion contraction and thickening by gated study. The rest of the segments of the myocardium had normal perfusion at rest, and normal perfusion post stress with IV Lexiscan. Except the inferior wall, the rest of the segments of the myocardium had normal motion, contraction, and thickening by gated study. T. I D. ratio was was read by the computer as abnormal at 1.30. Visually this is not reliable, and visually the T I D ratio was normal. There is no transient ischemic dilatation of the left ventricle. Computer read rest, and stress left ventricular ejection fraction were 45 %, and 44 %, respectively. Visually both the stress and rest ejection fractions were normal, and greater than 55%. Conclusion: 1. There is scintigraphic evidence of Lexiscan induced mild myocardial ischemi involving the lateral wall. 2. There is scintigraphic evidence of mild myocardial infarction/scar of the inferior wall. Recommendations: 1. Correlate clinically. Aggressive medical treatment of coronary artery disease. 2. Check echo for LV ejection fraction correlation. 3. Aggressive risk factor modification, and treating the underlying co- morbidities. MTDD
== END 2018-08-06 17:23 | DRG 682 ==
LOC: ER 19:30 → EH 08-02 03:25 → 4S 08-02 05:22
PROVIDERS: ADMIT Emergency Medicine; ATTEND Emergency Medicine
DX: N17.9 Acute kidney failure, unspecified (principal); J18.1 Lobar pneumonia, unspecified organism; J44.0 Chronic obstructive pulmonary disease with (acute) lower respiratory infection; A08.4 Viral intestinal infection, unspecified; I25.10 Atherosclerotic heart disease of native coronary artery without angina pectoris; E78.5 Hyperlipidemia, unspecified; I10 Essential (primary) hypertension; J44.9 Chronic obstructive pulmonary disease, unspecified; I25.2 Old myocardial infarction; K21.9 Gastro-esophageal reflux disease without esophagitis; F31.9 Bipolar disorder, unspecified; F25.9 Schizoaffective disorder, unspecified; I95.9 Hypotension, unspecified; G89.29 Other chronic pain; E11.9 Type 2 diabetes mellitus without complications; R07.9 Chest pain, unspecified; R94.39 Abnormal result of other cardiovascular function study; Z90.49 Acquired absence of other specified parts of digestive tract; Z95.1 Presence of aortocoronary bypass graft; Z87.891 Personal history of nicotine dependence; Z79.82 Long term (current) use of aspirin; Z79.899 Other long term (current) drug therapy; Z93.1 Gastrostomy status
CPT/HCPCS: 36415; 71045; 78452; 80048; 80053; 81001; 82550; 82553; 82962; 83690; 83735; 84484; 85025; 85027; 93005; 93010; 93017; 93306; 96361; 96374; 96375; 99285; A9500; J1644; J2270; J2405; J2765; J2785; J3490; J7030; J7040; J7120; Q9969; S0028

== ENCOUNTER 2018-12-13 13:09 | Observation (INO) | payer MEDICAID ==
[2018-12-13] MEDS ORDERED: ASPIRIN 81 MG TABLET, CHEWABLE PO ONE (13:15)
[2018-12-13] MEDS ORDERED: NITROGLYCERIN 0.4 MG/TAB 25 TAB/BOTTLE SL PRN (13:34)
--- NOTE | 2018-12-13 13:44 | RADIOLOGY REPORT (SQ) ---
EXAM DESCRIPTION: CHEST SINGLE VIEW COMPLETED DATE/TIME: 12/13/2018 1:34 pm REASON FOR STUDY: bed 5 cp COMPARISON: None. EXAM PARAMETERS: NUMBER OF VIEWS: One view. TECHNIQUE: Single frontal radiographic view of the chest acquired. RADIATION DOSE: NA LIMITATIONS: None. FINDINGS: LUNGS AND PLEURA: Linear atelectasis in the left base. MEDIASTINUM AND HILAR STRUCTURES: No masses. Contour normal. HEART AND VASCULAR STRUCTURES: Heart size is borderline. There is no pulmonary edema. BONES: No acute findings. HARDWARE: Sternotomy wires. Graft markers. OTHER: No other significant finding. IMPRESSION: Borderline heart size without pulmonary edema. TECHNICAL DOCUMENTATION: JOB ID: [id number] [email or web address]- All Rights Reserved Reading location - IP/workstation name: [email or web address]
[2018-12-13 14:04] LABS: ABSOLUTE EOSINOPHILS # (AUTO) 0.1 10^3/uL (0.0-0.6); ABSOLUTE LYMPHOCYTES (AUTO) 1.7 10^3/uL (0.5-4.7); ABSOLUTE MONOCYTES (AUTO) 0.5 10^3/uL (0.1-1.4); ABSOLUTE NEUT (AUTO) 2.6 10^3/uL (1.7-8.2); BASOPHILS % (AUTO) 0.5 % (0-2); EOSINOPHILS % (AUTO) 2.4 % (0-6); HEMATOCRIT 36.6 % (36.0-47.0); HEMOGLOBIN 11.9 g/dL (12.0-15.5); MEAN CORPUSCULAR HGB CONC 32.5 g/dL (32.0-36.0); MEAN CORPUSCULAR VOLUME 86 fl (80-97); MONOCYTES % (AUTO) 10.3 % (3-13); PLATELET COUNT 213 10^3/uL (150-450); RED BLOOD COUNT 4.24 10^6/uL (3.72-5.28); RED CELL DISTRIBUTION WIDTH 20.3 % (11.5-14.0); SEGMENTED NEUTROPHILS % (AUTO) 52.8 % (42-78); TOTAL CELLS COUNTED % (AUTO) 100 %
--- NOTE | 2018-12-13 14:12 | ER Document Report ---
ED Cardiac - General Chief Complaint: Chest Pain > 30 Stated Complaint: CHEST PAIN Time Seen by Provider: 12/13/18 13:26 Primary Care Provider: TREVON SKAGGS PA-C [Primary Care Provider] - Follow up as needed Mode of Arrival: Ambulatory Information source: Patient TRAVEL OUTSIDE OF THE [place] IN LAST 30 DAYS: No - HPI Notes: Patient presents with a complaint of left-sided chest pain for 1 hour. She states it is somewhat better now but she still has a pressure sensation in the left chest. It did radiate to the left arm. She states it feels like her previous myocardial infarction pain. She states she has had 2 previous stents placed and a previous CABG. She also states that her most recent stent was approximate 1 year ago. This pain occurred at rest. Nothing made it better or worse. She states she does not take an aspirin a day. She states she does take Plavix. She does smoke daily. She states she was short of breath and sweaty with the pain today with some nausea. No recent cough cold or congestion. The pain was constant for the 1 hour. - Related Data Allergies/Adverse Reactions: haloperidol [From Haldol] Allergy (Unknown, Verified 12/13/18 13:26) Past Medical History - General Information source: Patient - Social History Smoking Status: Current Every Day Smoker Frequency of alcohol use: None Drug Abuse: None Family History: CAD - Past Medical History Cardiac Medical History: Reports: Hx Coronary Artery Disease, Hx Heart Attack - x2, Hx Hypercholesterolemia, Hx Hypertension Denies: Hx Atrial Fibrillation, Hx Congestive Heart Failure, Hx DVT, Hx Peripheral Vascular Disease, Hx Pulmonary Embolism Pulmonary Medical History: Reports: Hx Bronchitis, Hx COPD Denies: Hx Asthma, Hx Pneumonia, Hx Respiratory Failure, Hx Tuberculosis Neurological Medical History: Reports: Hx Cerebrovascular Accident. Denies: Hx Seizures Endocrine Medical History: Reports: Hx Diabetes Mellitus Type 2. Denies: Hx Hyperthyroidism, Hx Hypothyroidism Renal/ Medical History: Reports: Hx Kidney Stones. Denies: Hx Peritoneal Dialysis GI Medical History: Reports: Hx Gastroesophageal Reflux Disease. Denies: Hx Cirrhosis, Hx Crohn's Disease, Hx Hepatitis, Hx Ulcerative Colitis Musculoskeletal Medical History: Denies Hx Arthritis, Denies Hx Gout Skin Medical History: Denies Hx Eczema, Denies Hx Psoriasis Psychiatric Medical History: Reports: Hx Bipolar Disorder, Hx Depression, Hx Schizoaffective Disorder, Hx Schizophrenia Infectious Medical History: Denies: Hx Hepatitis Past Surgical History: Reports: Hx Cardiac Catheterization, Hx Cardiac Surgery - stents, CABG 09/2016, Hx Cholecystectomy, Hx Coronary Artery Bypass Graft - September 2016, Hx Coronary Stent - x2, Hx Open Heart Surgery, Hx Thyroid Surgery, Hx Tonsillectomy, Hx Tubal Ligation, Hx Urinary Tract Surgery, Hx Vascular Surgery, Other - PEG tube placement - Immunizations Hx Diphtheria, Pertussis, Tetanus Vaccination: Yes Hx Pneumococcal Vaccination: 11/29/16 Review of Systems - Review of Systems Constitutional: denies: Chills, Fever Cardiovascular: Chest pain. denies: Palpitations Respiratory: Short of breath. denies: Cough -: Yes All other systems reviewed and negative Physical Exam - Vital signs Vitals: Pulse Ox 99 12/13/18 13:15 Interpretation: Normal - General General appearance: Appears well, Alert - HEENT Head: Normocephalic, Atraumatic Eyes: Normal Pupils: PERRL - Respiratory Respiratory status: No respiratory distress Chest status: Nontender Breath sounds: Normal Chest palpation: Normal - Cardiovascular Rhythm: Regular Heart sounds: Normal auscultation Murmur: No - Abdominal Inspection: Normal Distension: No distension Bowel sounds: Normal Tenderness: Nontender Organomegaly: No organomegaly - Back Back: Normal, Nontender - Extremities General upper extremity: Normal inspection, Nontender, Normal color, Normal ROM, Normal temperature General lower extremity: Normal inspection, Nontender, Normal color, Normal ROM, Normal temperature, Normal weight bearing. No: Jamie's sign - Neurological Neuro grossly intact: Yes Cognition: Normal Orientation: AAOx4 [place] Coma Scale Eye Opening: Spontaneous [place] Coma Scale Verbal: Oriented [place] Coma Scale Motor: Obeys Commands [place] Coma Scale Total: 15 Speech: Normal Motor strength normal: LUE, RUE, LLE, RLE Sensory: Normal - Psychological Associated symptoms: Normal affect, Normal mood - Skin Skin Temperature: Warm Skin Moisture: Dry Skin Color: Normal Course - Re-evaluation Re-evalutation: 12/13/18 16:25 Patient presents with left-sided chest pain that lasted for proxy 1 hour. She is a smoker. She has had a previous CABG and 2 stents. She is also had a stroke. Patient obviously has significant vascular disease. EKG has some nonspecific new changes. It seems most prudent for patient be admitted for serial enzymes EKGs and observation. Cardiology will also consult. - Vital Signs Vital signs: Temp Pulse Resp BP Pulse Ox 97.6 F 12 135/83 H 100 12/13/18 15:02 12/13/18 15:02 12/13/18 15:02 12/13/18 15:02 - Laboratory Result Diagrams: 12/13/18 13:47 12/13/18 13:47 Laboratory results interpreted by me: 12/13/18 12/13/18 13:47 13:47 Hgb 11.9 L RDW 20.3 H Potassium 5.1 H BUN 22 H Creatinine 1.29 H Est GFR ( Amer) 51 L Est GFR (MDRD) Non-Af 42 L Glucose 378 H - Diagnostic Test Radiology reviewed: Image reviewed, Reports reviewed - EKG Interpretation by Me EKG shows normal: Sinus rhythm Rate: Normal - 68 Rhythm: NSR When compared to previous EKG there are: Changes noted - new st depression in multiple leads Discharge - Discharge Clinical Impression: Chest pain Qualifiers: Chest pain type: other chest pain Qualified Code(s): R07.89 - Other chest pain Condition: Stable Disposition: ADMITTED INPATIENT Admitting Provider: Dahlia (Hospitalist) - [facility] Unit Admitted: Telemetry Referrals: TREVON SKAGGS PA-C [Primary Care Provider] - Follow up as needed
[2018-12-13 14:19] LABS: ALKALINE PHOSPHATASE 115 U/L (38-126); ANION GAP 13 (5-19); ASPARTATE AMINO TRANSFERASE 21 U/L (14-36); BILIRUBIN,DIRECT 0.4 mg/dL (0.0-0.4); BILIRUBIN,TOTAL 0.5 mg/dL (0.2-1.3); BLOOD UREA NITROGEN 22 mg/dL (7-20); CALCIUM 9.8 mg/dL (8.4-10.2); CARBON DIOXIDE 25 mmol/L (22-30); CHLORIDE 101 mmol/L (98-107); GLUCOSE 378 mg/dL (75-110); POTASSIUM 5.1 mmol/L (3.6-5.0); TOTAL PROTEIN 7.8 g/dL (6.3-8.2)
[2018-12-13] MEDS ORDERED: MAGNESIUM HYDROXIDE SUSP 30 ML UDCUP PO PRN (16:15)
[2018-12-13] MEDS ORDERED: MAG HYDROX/AL HYDROX/SIMETH SUSP 30 ML UDCUP PO PRN (16:15)
[2018-12-13] MEDS ORDERED: ACETAMINOPHEN 325 MG TABLET PO PRN (16:15)
[2018-12-13] MEDS ORDERED: ONDANSETRON 4 MG TAB.RAPDIS PO PRN (16:15)
[2018-12-13] MEDS ORDERED: ONDANSETRON HCL INJ/PF 4 MG/2 ML SDV IV PRN (16:15)
--- NOTE | 2018-12-13 16:33 | PDOC CONSULTATION ---
Consultation Consult Date: 12/13/18 Provider Consulted: DEONNA WARNER History of Present Illness Admission Date/PCP: TREVON SKAGGS PA-C Patient complains of: Chest pain History of Present Illness: CHARLEY SHERMAN is a 58 year old female Active problems 1. CAD 2. CABG[ODEN-LAD, SVG-OM, SVG-PDA-PLB] 09/20/2016 Makenna Fish-Maikol Anne 3. Systemic Hypertension 4. Dyslipidemia 5. Nicotine dependence 6. COPD Patient is not a great historian. She complains of chest pain that is epigastric. There is some correlation with palpation. No associated respiratory symptoms. Medication compliance cannot be ascertained. Most recent studies include a transthoracic echocardiogram from 08/05/2018 which showed preserved left ventricle systolic function estimated to 65% and no significant valve lesion. Previous stress test was performed on 08/07/2018 which showed mild myocardial ischemia involving the lateral wall. There was also mild myocardial infarction or scarring of the area wall. At that time was made to pursue aggressive medical therapy. Patient continues to smoke cigarettes unfortunately. EKG in the emergency room showed sinus rhythm with inferolateral to inversions which are not significantly different from before. There is also suggestion of left ventricular hypertrophy. Heart Catheterization: 08/2016 1. Left main: The left main is a normal-appearing, but short vessel. It gives rise to the LAD and left circumflex. No angiographic evidence of coronary disease. 2. LAD is a normal appearing vessel. It has a proximal 40% stenosis noted as well as an 80% stenosis noted at the mid segment at the takeoff of the diagonal branch. It then continues and wraps around the apex. There is also a 50% to 60% distal stenosis noted. 3. Left circumflex: The left circumflex is a normal appearing vessel. It gives rise to two OM branches. The first OM branch has a 90% proximal stenosis noted. The left circumflex then continues and tapers in the AV groove. It also gives off a posterolateral branch. 4. RCA is a normal appearing dominant vessel that gives rise to a PDA and posterolateral branch. There are luminal irregularities noted in the proximal portion where the stent is placed but appear up to 20% to 30%. At the midpoint of the RCA, there is a focal 70% stenosis. Distally, the PDA has a 40% to 50% stenosis at the mid point. The proximal posterolateral branch also has what appears to be a 50% to 60% stenosis as well as a 50% to 60% stenosis at the mid point. CABG:ODEN to LAD, SVG to OM and SVG to PDA Past Medical History Cardiac Medical History: Reports: Coronary Artery Disease, Myocardial Infarction - x2, Hyperlipidema, Hypertension Denies: Atrial Fibrillation, Congestive Heart Failure, DVT, Peripheral Vascular Disease, Pulmonary Embolism Pulmonary Medical History: Reports: Bronchitis, Chronic Obstructive Pulmonary Disease (COPD) Denies: Asthma, Pneumonia, Respiratory Failure, Tuberculosis Neurological Medical History: Denies: Seizures Endocrine Medical History: Reports: Diabetes Mellitus Type 2 Denies: Hyperthyroidism, Hypothyroidism GI Medical History: Reports: Gastroesophageal Reflux Disease Denies: Cirrhosis, Crohn's Disease, Hepatitis, Ulcerative Colitis Musculoskeltal Medical History: Denies: Arthritis, Gout Skin Medical History: Denies: Eczema, Psoriasis Psychiatric Medical History: Reports: Bipolar Disorder, Depression, Schizoaffective Disorder Hematology: Denies: Anemia, Bleeding Tendencies Past Surgical History Past Surgical History: Reports: Cardiac Catheterization, Cholecystectomy, Co ronary Artery Bypass Graft - September 2016, Coronary Stent - x2, Tonsillectomy, Tubal Ligation, Vascular Surgery, Other - PEG tube placement Social History Smoking Status: Current Every Day Smoker Electronic Cigarette use?: No Frequency of Alcohol Use: None Hx Recreational Drug Use: No Drugs: None Hx Prescription Drug Abuse: No Family History Family History: CAD Parental Family History Reviewed: No Children Family History Reviewed: NA Sibling(s) Family History Reviewed.: NA Medication/Allergy Allergies/Adverse Reactions: haloperidol [From Haldol] Allergy (Unknown, Verified 12/13/18 13:26) Review of Systems Constitutional: PRESENT: as per HPI Eyes: PRESENT: as per HPI Ears: PRESENT: as per HPI Cardiovascular: PRESENT: as per HPI, chest pain Respiratory: PRESENT: as per HPI Gastrointestinal: PRESENT: as per HPI Genitourinary: PRESENT: as per HPI Neurological: PRESENT: as per HPI Physical Exam Vital Signs: Temp Pulse Resp BP Pulse Ox 97.6 F 12 135/83 H 100 12/13/18 15:02 12/13/18 15:02 12/13/18 15:02 12/13/18 15:02 Intake & Output 12/12/18 12/13/18 12/14/18 06:59 06:59 06:59 Weight 92.986 kg General appearance: PRESENT: no acute distress, cooperative Head exam: PRESENT: atraumatic, normocephalic Eye exam: PRESENT: conjunctiva pink, EOMI Ear exam: PRESENT: normal external ear exam Mouth exam: PRESENT: moist Neck exam: PRESENT: full ROM Respiratory exam: PRESENT: symmetrical Cardiovascular exam: PRESENT: RRR, +S1, +S2 Pulses: PRESENT: normal radial pulses GI/Abdominal exam: PRESENT: soft Neurological exam: PRESENT: alert, awake, oriented to person, oriented to place, oriented to time Psychiatric exam: PRESENT: flat affect Results Laboratory Results: 12/13/18 13:47 12/13/18 13:47 12/13/18 12/13/18 13:47 13:47 WBC 5.0 RBC 4.24 Hgb 11.9 L Hct 36.6 MCV 86 MCH 28.0 MCHC 32.5 RDW 20.3 H Plt Count 213 Seg Neutrophils % 52.8 Sodium 139.1 Potassium 5.1 H Chloride 101 Carbon Dioxide 25 Anion Gap 13 BUN 22 H Creatinine 1.29 H Est GFR ( Amer) 51 L Glucose 378 H Calcium 9.8 Total Bilirubin 0.5 AST 21 Alkaline Phosphatase 115 Total Protein 7.8 Albumin 4.0 12/13/18 13:47 Troponin I < 0.012 Impressions: Chest X-Ray 12/13/18 13:15 IMPRESSION: Borderline heart size without pulmonary edema. Assessment & Plan - Diagnosis (1) CAD (coronary artery disease) Qualifiers: Coronary Disease-Associated Artery/Lesion type: unspecified vessel or lesion type [place] vs. transplanted heart: [place] heart Associated angina: with unspecified angina Qualified Code(s): I25.119 - Atherosclerotic heart disease of [place] coronary artery with unspecified angina pectoris Is this a current diagnosis for this admission?: Yes Plan: Recent imaging studies show preserved ejection fraction and only mild ischemia on pharmacological stress test Cardiac catheterization in August 2016 showed significant [place] coronary artery disease. Patient is status post coronary bypass graft. Given recent stress testing which showed only mild ischemia with preferred medical therapy. We will make sure patient is on aspirin 81 mg daily Adequate beta-blockade. Can consider long-acting nitrates for further relief of anginal symptoms. Continue statin therapy Would not repeat stress test. Would not repeat echocardiogram given recent studies. (2) Chest pain Qualifiers: Chest pain type: other chest pain Qualified Code(s): R07.89 - Other chest pain; R07.8 - Other chest pain Is this a current diagnosis for this admission?: Yes Plan: Chest pain is described as epigastric and there is probably a reproducible component to it. Given the fact that only mild ischemia is reported on stress testing would prefer aggressive medical therapy including up titration of beta- blockers as tolerated and long-acting nitrates if possible. (3) HTN (hypertension) Qualifiers: Hypertension type: essential hypertension Qualified Code(s): I10 - Essential (primary) hypertension Is this a current diagnosis for this admission?: Yes Plan: Low-salt diet. Continue medications for systemic hypertension - Notes Notes: I met with the patient and discussed care plan Twelve-lead EKG was reviewed and showed sinus rhythm with left ventricular h ypertrophy and repolarization abnormalities versus inferolateral T wave inversions suggestive of myocardial ischemia. These changes are not significantly different from prior EKG available to me for review. Lead reversal was noticed on the EKG done today and repeat EKG showed adequate replacement with persistent inferolateral T inversions as described earlier. Would recommend overnight observation with serial estimation of troponins. We will continue medical therapy for CAD including aspirin statin and beta- campos. Imaging studies are recent and there is no compelling reason to repeat them at this point.
[2018-12-13] MEDS ORDERED: METOPROLOL SUCCINATE 25 MG TAB.SR.24H PO ONE (17:00)
[2018-12-13 17:43] LABS: INTERNATIONAL RATION (INR) 1.07; PROTHROMBIN TIME 13.9 SEC (11.4-15.4)
--- NOTE | 2018-12-13 18:05 | PDOC H&P ---
History of Present Illness Admission Date/PCP: 12/13/18 17:16 TREVON SKAGGS PA-C History of Present Illness: CHARLEY SHERMAN is a 58 year old female comes in with a 2-day history of chest pain. Patient states that yesterday for just a few minutes she had chest pain which went down to the left arm. States that this occurred again today for just a few minutes as well patient denies chest pain now. Unfortunately because of dementia i.e. psychiatric disorder patient is a poor historian. He is a resident of a longterm secondary to the dementia and psychiatric disorders. Patient has had 2 previous stents and a CABG. Recent stent was 1 year ago. These include Haldol. She is now to be admitted to the hospital to rule out cardiac disease as the etiology of her chest pain. Past Medical History Cardiac Medical History: Reports: Coronary Artery Disease, Myocardial Infarction - x2, Hyperlipidema, Hypertension Denies: Atrial Fibrillation, Congestive Heart Failure, DVT, Peripheral Vascular Disease, Pulmonary Embolism Pulmonary Medical History: Reports: Bronchitis, Chronic Obstructive Pulmonary Disease (COPD) Denies: Asthma, Pneumonia, Respiratory Failure, Tuberculosis Neurological Medical History: Denies: Seizures Endocrine Medical History: Reports: Diabetes Mellitus Type 2 Denies: Hyperthyroidism, Hypothyroidism GI Medical History: Reports: Gastroesophageal Reflux Disease Denies: Cirrhosis, Crohn's Disease, Hepatitis, Ulcerative Colitis Musculoskeltal Medical History: Denies: Arthritis, Gout Skin Medical History: Denies: Eczema, Psoriasis Psychiatric Medical History: Reports: Bipolar Disorder, Depression, Schizoaffective Disorder Hematology: Denies: Anemia, Bleeding Tendencies Past Surgical History Past Surgical History: Reports: Cardiac Catheterization, Cholecystectomy, Co ronary Artery Bypass Graft - September 2016, Coronary Stent - x2, Tonsillectomy, Tubal Ligation, Vascular Surgery, Other - PEG tube placement Social History Smoking Status: Current Every Day Smoker Electronic Cigarette use?: No Frequency of Alcohol Use: None Hx Recreational Drug Use: No Drugs: None Hx Prescription Drug Abuse: No - Advance Directive Resuscitation Status: Full Code Family History Family History: CAD Parental Family History Reviewed: No Children Family History Reviewed: No Sibling(s) Family History Reviewed.: No Medication/Allergy Allergies/Adverse Reactions: haloperidol [From Haldol] Allergy (Unknown, Verified 12/13/18 13:26) Review of Systems Constitutional: ABSENT: chills, fever(s), headache(s), weight gain, weight loss Cardiovascular: PRESENT: chest pain Respiratory: ABSENT: cough, hemoptysis Neurological: PRESENT: confusion Psychiatric: PRESENT: other - Affect flat Physical Exam Vital Signs: Temp Pulse Resp BP Pulse Ox 97.6 F 12 135/83 H 100 12/13/18 15:02 12/13/18 15:02 12/13/18 15:02 12/13/18 15:02 Intake & Output 12/12/18 12/13/18 12/14/18 06:59 06:59 06:59 Weight 92.986 kg General appearance: PRESENT: no acute distress Respiratory exam: PRESENT: clear to auscultation ailyn. ABSENT: rales, rhonchi, wheezes Cardiovascular exam: PRESENT: RRR. ABSENT: diastolic murmur, rubs, systolic murmur Neurological exam: PRESENT: alert, awake, oriented to person, oriented to place, oriented to time, oriented to situation, CN II-XII grossly intact. ABSENT: motor sensory deficit Psychiatric exam: PRESENT: appropriate affect, normal mood. ABSENT: homicidal ideation, suicidal ideation Results Laboratory Results: 12/13/18 13:47 12/13/18 13:47 12/13/18 12/13/18 13:47 13:47 WBC 5.0 RBC 4.24 Hgb 11.9 L Hct 36.6 MCV 86 MCH 28.0 MCHC 32.5 RDW 20.3 H Plt Count 213 Seg Neutrophils % 52.8 Sodium 139.1 Potassium 5.1 H Chloride 101 Carbon Dioxide 25 Anion Gap 13 BUN 22 H Creatinine 1.29 H Est GFR ( Amer) 51 L Glucose 378 H Calcium 9.8 Total Bilirubin 0.5 AST 21 Alkaline Phosphatase 115 Total Protein 7.8 Albumin 4.0 12/13/18 13:47 Troponin I < 0.012 Impressions: Chest X-Ray 12/13/18 13:15 IMPRESSION: Borderline heart size without pulmonary edema. Assessment and Plan - Diagnosis (1) Chest pain Qualifiers: Chest pain type: other chest pain Qualified Code(s): R07.89 - Other chest pain; R07.8 - Other chest pain Is this a current diagnosis for this admission?: Yes Plan: Patient was seen by cardiology,, patient is medically stable, patient will have serial enzymes tonight and an echocardiogram as well as repeat EKG in the morning. Patient does have a strong past cardiac history. (2) Bipolar 1 disorder, depressed Is this a current diagnosis for this admission?: Yes Plan: Patient has a past history of bipolar disease her current previous medications are unknown have not been reconciled yet in the chart (3) CAD (coronary artery disease) Qualifiers: Coronary Disease-Associated Artery/Lesion type: unspecified vessel or lesion type [place] vs. transplanted heart: [place] heart Associated angina: with unspecified angina Qualified Code(s): I25.119 - Atherosclerotic heart disease of [place] coronary artery with unspecified angina pectoris Is this a current diagnosis for this admission?: Yes Plan: She has had 2 previous stents and one previous CABG (4) HTN (hypertension) Qualifiers: Hypertension type: essential hypertension Qualified Code(s): I10 - Essential (primary) hypertension Is this a current diagnosis for this admission?: Yes (5) Schizophrenia Qualifiers: Schizophrenia type: unspecified Qualified Code(s): F20.9 - Schizophrenia, unspecified Is this a current diagnosis for this admission?: Yes Plan: She has a positive past medical history for schizophrenia. - Plan Summary Summary: Will be admitted tonight be placed on beta-campos as well as a statin. She will have cardiac enzymes tonight every 6 hours times 3 repeat EKG in the morning and an echocardiogram as well.. She was seen in consultation by Dr. Linda, director of public safety, who is consulting on the case. - Time Time Spent with patient: 35 or more minutes
[2018-12-13 20:09] LABS: APPEARANCE,URINE CLOUDY; BILIRUBIN,URINE NEGATIVE (NEGATIVE); COLOR,URINE AMBER; GLUCOSE, URINE 150 mg/dL (NEGATIVE); KETONES,URINE NEGATIVE (NEGATIVE); LEUKOCYTE ESTERASE,URINE LARGE (NEGATIVE); NITRITE,URINE NEGATIVE (NEGATIVE); PROTEIN,URINE 100 mg/dL (NEGATIVE); URINE SPECIFIC GRAVITY 1.017
--- NOTE | 2018-12-13 21:39 | EKG REPORT ---
SEVERITY:- ABNORMAL ECG - SINUS RHYTHM CONSIDER RIGHT VENTRICULAR HYPERTROPHY INFERIOR INFARCT, AGE INDETERMINATE LATERAL INFARCT, AGE INDETERMINATE : Confirmed by: Ermias Smith 13-Dec-2018 21:38:49
--- NOTE | 2018-12-13 21:40 | EKG REPORT ---
SEVERITY:- ABNORMAL ECG - SINUS RHYTHM NONSPECIFIC INTRAVENTRICULAR CONDUCTION DELAY ANTEROLATERAL INFARCT, AGE INDETERMINATE CONSIDER L ARM R ARM LEAD REVERSAL REC REPEAT EKG AFTER CHECKING LEAD PLACEMENT : Confirmed by: Ermias Smith 13-Dec-2018 21:40:14
[2018-12-13] MEDS: HEPARIN SOD (PORCINE) 5,000 UNIT/ML 1 ML VIAL SUBCUT SCH (22:36)
[2018-12-13] MEDS: FAMOTIDINE 20 MG TABLET PO SCH (22:36)
[2018-12-14] MEDS ORDERED: DEXTROSE 50%-WATER SYRINGE 12.5 GM/25 ML DOSE IV PRN (00:30)
[2018-12-14] MEDS ORDERED: GLUCAGON,HUMAN RECOMB 1 MG INJ IM PRN (00:30)
[2018-12-14] MEDS ORDERED: DEXTROSE 40% GEL 15 GM TUBE X 2 PO PRN (00:30)
[2018-12-14] MEDS ORDERED: DEXTROSE 50%-WATER SYRINGE 25 GM/50 ML DOSE IV PRN (00:30)
[2018-12-14] MEDS ORDERED: DEXTROSE 40% GEL 15 GM TUBE PO PRN (00:30)
[2018-12-14 02:02] LABS: CREATINE KINASE MB 0.91 ng/mL (<4.55)
[2018-12-14 02:07] LABS: TROPONIN I < 0.012 ng/mL
[2018-12-14] MEDS: NORMAL SALINE 1000 ML 1,000 ML IV PRN (05:00)
[2018-12-14 06:24] LABS: ABSOLUTE EOSINOPHILS # (AUTO) 0.2 10^3/uL (0.0-0.6); ABSOLUTE LYMPHOCYTES (AUTO) 2.3 10^3/uL (0.5-4.7); ABSOLUTE MONOCYTES (AUTO) 0.7 10^3/uL (0.1-1.4); ABSOLUTE NEUT (AUTO) 3.1 10^3/uL (1.7-8.2); BASOPHILS % (AUTO) 0.5 % (0-2); EOSINOPHILS % (AUTO) 2.8 % (0-6); HEMATOCRIT 36.9 % (36.0-47.0); LYMPHOCYTES % (AUTO) 35.8 % (13-45); MEAN CORPUSCULAR HEMOGLOBIN 27.6 pg (27.0-33.4); MEAN CORPUSCULAR HGB CONC 32.4 g/dL (32.0-36.0); MEAN CORPUSCULAR VOLUME 85 fl (80-97); MONOCYTES % (AUTO) 11.4 % (3-13); PLATELET COUNT 217 10^3/uL (150-450); RED BLOOD COUNT 4.34 10^6/uL (3.72-5.28); RED CELL DISTRIBUTION WIDTH 20.4 % (11.5-14.0); SEGMENTED NEUTROPHILS % (AUTO) 49.5 % (42-78); TOTAL CELLS COUNTED % (AUTO) 100 %; WHITE BLOOD COUNT 6.3 10^3/uL (4.0-10.5)
[2018-12-14] MEDS: HEPARIN SOD (PORCINE) 5,000 UNIT/ML 1 ML VIAL SUBCUT SCH ×3 (06:24→22:10)
[2018-12-14 06:47] LABS: ALBUMIN 3.9 g/dL (3.5-5.0); ALKALINE PHOSPHATASE 110 U/L (38-126); ANION GAP 12 (5-19); ASPARTATE AMINO TRANSFERASE 22 U/L (14-36); BILIRUBIN,DIRECT 0.3 mg/dL (0.0-0.4); BILIRUBIN,TOTAL 0.6 mg/dL (0.2-1.3); BLOOD UREA NITROGEN 26 mg/dL (7-20); CALCIUM 9.8 mg/dL (8.4-10.2); CARBON DIOXIDE 22 mmol/L (22-30); CHLORIDE 105 mmol/L (98-107); GLUCOSE 211 mg/dL (75-110); POTASSIUM 4.8 mmol/L (3.6-5.0); TOTAL PROTEIN 7.7 g/dL (6.3-8.2)
[2018-12-14 06:53] LABS: CREATINE KINASE MB 0.86 ng/mL (<4.55); TROPONIN I 0.012 ng/mL
[2018-12-14] MEDS: INSULIN REG, HUMAN 100 UNIT/ML 3 ML VIAL (PYX) SUBCUT SCH ×4 (08:33→22:13)
[2018-12-14] MEDS: DOCUSATE SODIUM 100 MG CAPSULE PO SCH (09:16)
[2018-12-14] MEDS: ASPIRIN 81 MG TABLET, CHEWABLE PO SCH (09:16)
[2018-12-14] MEDS: FAMOTIDINE 20 MG TABLET PO SCH ×2 (09:16→22:10)
[2018-12-14] MEDS ORDERED: ATORVASTATIN CALCIUM 20 MG TABLET PO SCH (10:00)
--- NOTE | 2018-12-14 10:58 | XCELERA REPORT ---
[address] [address] Transthoracic Echocardiogram Report Name: CHARLEY SHERMAN Age: 58 yrs Gender: Female : 1960 Patient Status: [facility] Date: 12/13/2018 08:28 PM History: CAD CABG Height: 66 in Weight: 205 lb BSA: 2.0 m2 Procedure: A two-dimensional transthoracic echocardiogram with color flow and Doppler was performed. Reason For Study: Chest pain, DR WARNER TO READ Previous Evaluation: A previous study was performed on 08/05/2018 Echo showed preserved LVEF 65%. History: CAD. Smoker: current. Dyslipidemia. CABG. Ordering Physician: PRISCILLA ARNDT Performed By: Angelica Manuel Interpretation Summary Left ventricular systolic function is mildly reduced. The Ejection Fraction estimate is 45-50% Flattened septum is consistent with RV pressure/volume overload The right ventricle is moderately dilated. The right ventricular systolic function is moderate to severely reduced. There is a trace amount of mitral regurgitation There is no aortic valve stenosis There is a moderate to severe amount of tricuspid regurgitation Compared to prior study there is evidence of RV dysfunction. MMode/2D Measurements & Calculations RVDd: 2.4 cm LVIDd: 4.5 cm FS: 21.7 % Ao root diam: 2.2 cm IVSd: 1.0 cm LVIDs: 3.6 cm EDV(Teich): 94.3 ml Ao root area: 3.8 cm2 LVPWd: 0.98 cm ESV(Teich): 52.7 ml LA dimension: 2.8 cm EF(Teich): 44.1 % Doppler Measurements & Calculations MV E max linwood: MV P1/2t max linwood: Ao V2 max: LV V1 max P.8 cm/sec 96.4 cm/sec 118.1 cm/sec 2.7 mmHg MV A max linwood: MV P1/2t: 51.0 msec Ao max PG: LV V1 max: 71.3 cm/sec MVA(P1/2t): 4.3 cm2 5.6 mmHg 82.1 cm/sec MV E/A: 1.1 MV dec slope: 553.9 cm/sec2 MV dec time: 0.20 sec PA V2 max: PI end-d linwood: TR max linwood: MV P1/2t-pr_phl: 75.6 cm/sec 86.9 cm/sec 212.0 cm/sec 51.0 msec PA max PG: TR max P.3 mmHg 18.0 mmHg Left Ventricle There is mild to moderate concentric left ventricular hypertrophy. The left ventricle is grossly normal size. Left ventricular systolic function is mildly reduced. The Ejection Fraction estimate is 45-50%. Spectral Doppler of the mitral valve is reversed, with an E/A wave ratio < 1.0. Doppler measurements suggest pseudonormalized left ventricular relaxation, which is associated with grade II/IV or mild to moderate diastolic dysfunction. Flattened septum is consistent with RV pressure/volume overload. Septal motion is consistent with post-operative state. Right Ventricle The right ventricle is moderately dilated. The right ventricular systolic function is moderate to severely reduced. Atria The right atrium is mildly dilated. The left atrium is mildly dilated. Mitral Valve The mitral valve is normal in structure and function. There is a trace amount of mitral regurgitation. Aortic Valve The aortic valve is trileaflet. The aortic valve is sclerotic, but shows no functional abnormality. There is no aortic valvular vegetation. There is no aortic valve stenosis. No aortic regurgitation is present. Tricuspid Valve The tricuspid valve is not well visualized, but is grossly normal. There is a moderate to severe amount of tricuspid regurgitation. Like[place] severe pulmonary hypertension. Pulmonic Valve The pulmonic valve is normal in structure and function. There is no pulmonic valvular stenosis. There is a trace or physiologic amount of pulmonic regurgitation. Effusions There is no pericardial effusion. : PRISCILLA ARNDT Anil
--- NOTE | 2018-12-14 11:37 | PDOC PROGRESS REPORT ---
Subjective Progress Note for:: 12/14/18 Subjective:: No complaints. Chest pain improved. No dyspnea Reason For Visit: CHEST PAIN, CORONARY ARTERY DISEASE, CA, Physical Exam Vital Signs: Temp Pulse Resp BP Pulse Ox 97.4 F 66 17 128/73 H 95 12/14/18 08:03 12/14/18 08:03 12/14/18 08:03 12/14/18 08:03 12/14/18 08:03 Intake & Output 12/13/18 12/14/18 12/15/18 06:59 06:59 06:59 Intake Total 402 Output Total 653 Balance -251 Weight 76.4 kg General appearance: PRESENT: no acute distress, cooperative Head exam: PRESENT: atraumatic, normocephalic Eye exam: PRESENT: EOMI Mouth exam: PRESENT: moist Respiratory exam: PRESENT: symmetrical, unlabored Cardiovascular exam: PRESENT: RRR Pulses: PRESENT: normal radial pulses GI/Abdominal exam: PRESENT: soft Rectal exam: PRESENT: deferred Neurological exam: PRESENT: alert, oriented to person, oriented to place Psychiatric exam: PRESENT: flat affect Results Laboratory Results: 12/14/18 05:51 12/14/18 05:51 12/13/18 12/13/18 12/13/18 13:47 13:47 13:47 WBC 5.0 RBC 4.24 Hgb 11.9 L Hct 36.6 MCV 86 MCH 28.0 MCHC 32.5 RDW 20.3 H Plt Count 213 Seg Neutrophils % 52.8 Sodium 139.1 Potassium 5.1 H Chloride 101 Carbon Dioxide 25 Anion Gap 13 BUN 22 H Creatinine 1.29 H Est GFR ( Amer) 51 L Glucose 378 H Calcium 9.8 Magnesium Total Bilirubin 0.5 AST 21 Alkaline Phosphatase 115 Total Protein 7.8 Albumin 4.0 TSH 4.23 Urine Color Urine Appearance Urine pH Ur Specific Thayer Urine Protein Urine Glucose (UA) Urine Ketones Urine Blood Urine Nitrite Ur Leukocyte Esterase Urine WBC (Auto) Urine RBC (Auto) 12/13/18 12/14/18 12/14/18 19:30 05:51 05:51 WBC 6.3 RBC 4.34 Hgb 12.0 Hct 36.9 MCV 85 MCH 27.6 MCHC 32.4 RDW 20.4 H Plt Count 217 Seg Neutrophils % 49.5 Sodium 139.4 Potassium 4.8 Chloride 105 Carbon Dioxide 22 Anion Gap 12 BUN 26 H Creatinine 1.55 H Est GFR ( Amer) 41 L Glucose 211 H Calcium 9.8 Magnesium 1.8 Total Bilirubin 0.6 AST 22 Alkaline Phosphatase 110 Total Protein 7.7 Albumin 3.9 TSH Urine Color JOANNE Urine Appearance CLOUDY Urine pH 5.0 Ur Specific [place]ayer 1.017 Urine Protein 100 H Urine Glucose (UA) 150 H Urine Ketones NEGATIVE Urine Blood NEGATIVE Urine Nitrite NEGATIVE Ur Leukocyte Esterase LARGE H Urine WBC (Auto) >182 Urine RBC (Auto) 6 12/13/18 12/13/18 12/14/18 13:47 19:30 01:25 CK-MB (CK-2) 0.91 Troponin I < 0.012 0.018 < 0.012 12/14/18 05:51 CK-MB (CK-2) 0.86 Troponin I 0.012 Impressions: Chest X-Ray 12/13/18 13:15 IMPRESSION: Borderline heart size without pulmonary edema. Assessment & Plan - Diagnosis (1) CAD (coronary artery disease) Qualifiers: Coronary Disease-Associated Artery/Lesion type: unspecified vessel or lesion type [place] vs. transplanted heart: [place] heart Associated angina: with unspecified angina Qualified Code(s): I25.119 - Atherosclerotic heart disease of [place] coronary artery with unspecified angina pectoris Is this a current diagnosis for this admission?: Yes Plan: Troponins non diagnostic. No longer having chest pain. Echo shows mildly reduced LV function. RV pressure volume overload and RV dysfunction is evident Have to exclude PE as cause or could be secondary to long standing PAH- (2) Chest pain Qualifiers: Chest pain type: other chest pain Qualified Code(s): R07.89 - Other chest pain; R07.8 - Other chest pain Is this a current diagnosis for this admission?: Yes Plan: Resolved Unlikely iscehmic in nature. Continue aggressive medical therapy. Only mild ischemia on recent MPS. Would not cath unless very symptomatic despite medical therapy (3) HTN (hypertension) Qualifiers: Hypertension type: essential hypertension Qualified Code(s): I10 - Essential (primary) hypertension Is this a current diagnosis for this admission?: Yes (4) rv dysfunction Is this a current diagnosis for this admission?: Yes Plan: Will exclude PE as cause. Doppler evidence of moderate to severe TR. PAH evident-RV pressure volume overload noted - Notes Notes: Discussed Echo findings with patient and staff Will evaluate for PE May require calcium channel campos for PAH, Phosphodiesterase inhibitors etc Aggressive medical therapy given resolution of chest pain and non diagnostic troponins.
[2018-12-14 14:28] LABS: CREATINE KINASE MB 0.82 ng/mL (<4.55); TROPONIN I 0.015 ng/mL
[2018-12-14] MEDS ORDERED: NITROGLYCERIN 0.4 MG/TAB 25 TAB/BOTTLE SL PRN (15:37)
[2018-12-14] MEDS ORDERED: (PENDING PHARMACY ID) (Buspirone Hcl [Buspar 5 Mg Tablet] 5 MG) PO SCH (15:45)
--- NOTE | 2018-12-14 15:47 | PDOC PROGRESS REPORT ---
Subjective Progress Note for:: 12/14/18 Subjective:: 58-year-old female who was admitted yesterday through the emergency room for chest pain. Appreciate cardiology's note, d-dimer was elevated however due to her renal function will pursue with a VQ scan instead of a CT angiogram rule out PE Serial troponins are negative. Reason For Visit: CHEST PAIN, CORONARY ARTERY DISEASE, [place], Physical Exam Vital Signs: Temp Pulse Resp BP Pulse Ox 98.3 F 64 16 142/85 H 96 12/14/18 11:53 12/14/18 11:53 12/14/18 11:53 12/14/18 11:53 12/14/18 11:53 Intake & Output 12/13/18 12/14/18 12/15/18 06:59 06:59 06:59 Intake Total 402 Output Total 653 Balance -251 Weight 76.4 kg General appearance: PRESENT: no acute distress, other - No complaint of chest pain Respiratory exam: PRESENT: clear to auscultation ailyn. ABSENT: rales, rhonchi, wheezes Cardiovascular exam: PRESENT: RRR. ABSENT: diastolic murmur, rubs, systolic murmur Neurological exam: PRESENT: alert, awake, oriented to person, oriented to place, oriented to time, oriented to situation, CN II-XII grossly intact. ABSENT: mot or sensory deficit Psychiatric exam: PRESENT: flat affect Results Laboratory Results: 12/14/18 05:51 12/14/18 05:51 12/13/18 12/13/18 12/14/18 13:47 19:30 05:51 WBC 6.3 RBC 4.34 Hgb 12.0 Hct 36.9 MCV 85 MCH 27.6 MCHC 32.4 RDW 20.4 H Plt Count 217 Seg Neutrophils % 49.5 Sodium Potassium Chloride Carbon Dioxide Anion Gap BUN Creatinine Est GFR ( Amer) Glucose Calcium Magnesium Total Bilirubin AST Alkaline Phosphatase Total Protein Albumin TSH 4.23 Urine Color JOANNE Urine Appearance CLOUDY Urine pH 5.0 Ur Specific [place] 1.017 Urine Protein 100 H Urine Glucose (UA) 150 H Urine Ketones NEGATIVE Urine Blood NEGATIVE Urine Nitrite NEGATIVE Ur Leukocyte Esterase LARGE H Urine WBC (Auto) >182 Urine RBC (Auto) 6 12/14/18 05:51 WBC RBC Hgb Hct MCV MCH MCHC RDW Plt Count Seg Neutrophils % Sodium 139.4 Potassium 4.8 Chloride 105 Carbon Dioxide 22 Anion Gap 12 BUN 26 H Creatinine 1.55 H Est GFR ( Amer) 41 L Glucose 211 H Calcium 9.8 Magnesium 1.8 Total Bilirubin 0.6 AST 22 Alkaline Phosphatase 110 Total Protein 7.7 Albumin 3.9 TSH Urine Color Urine Appearance Urine pH Ur Specific [place] Urine Protein Urine Glucose (UA) Urine Ketones Urine Blood Urine Nitrite Ur Leukocyte Esterase Urine WBC (Auto) Urine RBC (Auto) 12/13/18 12/13/18 12/14/18 13:47 19:30 01:25 CK-MB (CK-2) 0.91 Troponin I < 0.012 0.018 < 0.012 12/14/18 12/14/18 05:51 12:03 CK-MB (CK-2) 0.86 0.82 Troponin I 0.012 0.015 Impressions: Chest X-Ray 12/13/18 13:15 IMPRESSION: Borderline heart size without pulmonary edema. Assessment and Plan - Diagnosis (1) Chest pain Qualifiers: Chest pain type: other chest pain Qualified Code(s): R07.89 - Other chest pain; R07.8 - Other chest pain Is this a current diagnosis for this admission?: Yes (2) Bipolar 1 disorder, depressed Is this a current diagnosis for this admission?: Yes (3) CAD (coronary artery disease) Qualifiers: Coronary Disease-Associated Artery/Lesion type: unspecified vessel or lesion type [place] vs. transplanted heart: [place] heart Associated angina: with unspecified angina Qualified Code(s): I25.119 - Atherosclerotic heart disease of [place] coronary artery with unspecified angina pectoris Is this a current diagnosis for this admission?: Yes (4) HTN (hypertension) Qualifiers: Hypertension type: essential hypertension Qualified Code(s): I10 - Ess ential (primary) hypertension Is this a current diagnosis for this admission?: Yes (5) Schizophrenia Qualifiers: Schizophrenia type: unspecified Qualified Code(s): F20.9 - Schizophrenia, unspecified Is this a current diagnosis for this admission?: Yes - Plan Summary Summary: Will be admitted tonight be placed on beta-campos as well as a statin. She will have cardiac enzymes tonight every 6 hours times 3 repeat EKG in the [facility] and an echocardiogram as well.. She was seen in consultation by Dr. Linda, flooring machine operator, who is consulting on the case. 12/14/2018 Dr. Linda the flooring machine operator, recommended that we pursue testing to rule out pulmonary embolism due to recent due to echocardiogram changes. Patient appears to be medically stable from a cardiac standpoint in that her troponins were negative. I have ordered a VQ scan to rule out pulmonary embolism. If this is negative we will treat patient aggressively with medical therapy - Time Time Spent with patient: 35 or more minutes
[2018-12-14] MEDS ORDERED: (PENDING PHARMACY ID) (Metformin Hcl [Glucophage Xr 500 Mg Tablet] 500 MG) PO SCH (17:00)
[2018-12-14] MEDS: METOPROLOL SUCCINATE 25 MG TAB.SR.24H PO SCH (17:19)
[2018-12-14] MEDS: METFORMIN HCL 500 MG TABLET PO SCH (17:22)
[2018-12-14] MEDS ORDERED: (PENDING PHARMACY ID) (Valproic Acid [Depakene] 500 MG) PO SCH (18:00)
[2018-12-14] MEDS ORDERED: DOCUSATE SODIUM 100 MG CAPSULE PO SCH (18:00)
[2018-12-14] MEDS ORDERED: FAMOTIDINE 20 MG TABLET PO SCH (18:00)
[2018-12-14] MEDS ORDERED: NITROFURANTOIN MONOHYD/M-CRYST 100 MG CAPSULE PO SCH (18:00)
[2018-12-14] MEDS ORDERED: (PENDING PHARMACY ID) (Quetiapine Fumarate [Seroquel] 50 MG) PO SCH (18:00)
--- NOTE | 2018-12-14 21:12 | RADIOLOGY REPORT (SQ) ---
EXAM DESCRIPTION: NM LUNG VENTILATION PERFUSION COMPLETED DATE/TME: 12/14/2018 00:00 CLINICAL HISTORY: Elevated d-dimer ,rule out PE COMPARISON: None. Technique: Patient was administered 30 mCi technetium 99m DTPA in aerosol form. Planar imaging was acquired for the purpose of ventilation. Patient was then administered 5.29 mCi technetium 99m MAA and multiplanar perfusion imaging was acquired. FINDINGS: The ventilation portion of the examination is nondiagnostic. No significant segmental defects on the perfusion portion of the examination. There are small segmental defects posteriorly. Low probability for pulmonary embolus. IMPRESSION: Nondiagnostic ventilation Low probability for pulmonary embolus
[2018-12-14] MEDS ORDERED: ASPIRIN 81 MG TABLET, CHEWABLE PO SCH (22:00)
[2018-12-14] MEDS: CIPROFLOXACIN HCL 500 MG TABLET PO SCH (22:08)
[2018-12-14] MEDS: QUETIAPINE FUMARATE 25 MG TABLET PO SCH (22:09)
[2018-12-14] MEDS: RANOLAZINE 500 MG TAB.SR.12H PO SCH (22:09)
[2018-12-14] MEDS: VALPROATE SODIUM SYRUP 250 MG/5 ML UDCUP PO SCH (22:11)
[2018-12-14] MEDS: ATORVASTATIN CALCIUM 40 MG TABLET PO SCH (22:11)
--- NOTE | 2018-12-14 23:07 | EKG REPORT ---
SEVERITY:- ABNORMAL ECG - SINUS RHYTHM BORDERLINE IVCD WITH LAD INFERIOR INFARCT, AGE INDETERMINATE LATERAL INFARCT, AGE INDETERMINATE : Confirmed by: Ermias Smith 14-Dec-2018 23:06:08
[2018-12-15] MEDS: LEVOTHYROXINE SODIUM 0.075 MG TABLET PO SCH (05:44)
[2018-12-15] MEDS: HEPARIN SOD (PORCINE) 5,000 UNIT/ML 1 ML VIAL SUBCUT SCH ×3 (05:47→22:21)
[2018-12-15] MEDS ORDERED: INFLUENZA QUAD (6MOS+) 2019-20 VAC 0.5 ML SYR IM ONE (08:00)
[2018-12-15] MEDS ORDERED: (PENDING PHARMACY ID) (Metformin Hcl [Glucophage Xr 500 Mg Tablet] 500 MG) PO SCH (08:00)
[2018-12-15] MEDS: METOPROLOL SUCCINATE 25 MG TAB.SR.24H PO SCH (10:00)
[2018-12-15] MEDS: INSULIN REG, HUMAN 100 UNIT/ML 3 ML VIAL (PYX) SUBCUT SCH ×4 (10:33→22:22)
[2018-12-15] MEDS: METOCLOPRAMIDE HCL 10 MG TABLET PO SCH ×3 (10:33→16:13)
[2018-12-15] MEDS: FAMOTIDINE 20 MG TABLET PO SCH ×2 (10:38→22:23)
[2018-12-15] MEDS: QUETIAPINE FUMARATE 25 MG TABLET PO SCH ×2 (10:38→22:24)
[2018-12-15] MEDS: MULTIVITAMIN TABLET PO SCH (10:38)
[2018-12-15] MEDS: RANOLAZINE 500 MG TAB.SR.12H PO SCH ×2 (10:38→22:23)
[2018-12-15] MEDS: VALPROATE SODIUM SYRUP 250 MG/5 ML UDCUP PO SCH ×2 (10:39→22:21)
[2018-12-15] MEDS: DOCUSATE SODIUM 100 MG CAPSULE PO SCH (10:39)
[2018-12-15] MEDS: BUSPIRONE HCL 10 MG TABLET PO SCH (10:39)
[2018-12-15] MEDS: ASPIRIN 81 MG TABLET, CHEWABLE PO SCH (10:39)
[2018-12-15] MEDS: METFORMIN HCL 500 MG TABLET PO SCH ×2 (10:39→16:13)
[2018-12-15] MEDS: CIPROFLOXACIN HCL 500 MG TABLET PO SCH ×2 (10:40→22:20)
--- NOTE | 2018-12-15 10:51 | PDOC PROGRESS REPORT ---
Subjective Progress Note for:: 12/15/18 Subjective:: 58-year-old female who was admitted yesterday through the emergency room for chest pain. Appreciate cardiology's note, d-dimer was elevated however due to her renal function will pursue with a VQ scan instead of a CT angiogram rule out PE Serial troponins are negative. 12/15/2018 Patient waiting to go back to long term. Will make medication changes at time of discharge. Patient's blood sugars on admission was 378, and 166 this morning Reason For Visit: CHEST PAIN, CORONARY ARTERY DISEASE, [place], Physical Exam Vital Signs: Temp Pulse Resp BP Pulse Ox 97.5 F 52 L 16 149/85 H 97 12/15/18 00:59 12/15/18 07:00 12/15/18 00:59 12/15/18 00:59 12/15/18 00:59 Intake & Output 12/14/18 12/15/18 12/16/18 06:59 06:59 06:59 Intake Total 402 702 Output Total 653 Balance -251 702 Weight 76.4 kg 76 kg General appearance: PRESENT: no acute distress, other - No complaint of chest pain or shortness of breath Respiratory exam: PRESENT: clear to auscultation ailyn. ABSENT: rales, rhonchi, wheezes Cardiovascular exam: PRESENT: RRR. ABSENT: diastolic murmur, rubs, systolic murmur Neurological exam: PRESENT: alert, awake, oriented to person, oriented to place, oriented to time, oriented to situation, CN II-XII grossly intact. ABSENT: motor sensory deficit Psychiatric exam: PRESENT: appropriate affect, normal mood. ABSENT: homicidal ideation, suicidal ideation Results Laboratory Results: 12/14/18 05:51 12/14/18 05:51 12/13/18 12/13/18 12/14/18 13:47 19:30 01:25 CK-MB (CK-2) 0.91 Troponin I < 0.012 0.018 < 0.012 12/14/18 12/14/18 05:51 12:03 CK-MB (CK-2) 0.86 0.82 Troponin I 0.012 0.015 Impressions: Chest X-Ray 12/13/18 13:15 IMPRESSION: Borderline heart size without pulmonary edema. Lung Scan-VQ NM 12/14/18 00:00 IMPRESSION: Nondiagnostic ventilation Low probability for pulmonary embolus Assessment and Plan - Diagnosis (1) Chest pain Qualifiers: Chest pain type: other chest pain Qualified Code(s): R07.89 - Other chest pain; R07.8 - Other chest pain Is this a current diagnosis for this admission?: Yes (2) Bipolar 1 disorder, depressed Is this a current diagnosis for this admission?: Yes (3) CAD (coronary artery disease) Qualifiers: Coronary Disease-Associated Artery/Lesion type: unspecified vessel or lesion type [place] vs. transplanted heart: [place] heart Associated angina: with unspecified angina Qualified Code(s): I25.119 - Atherosclerotic heart disease of [place] coronary artery with unspecified angina pectoris Is this a current diagnosis for this admission?: Yes (4) HTN (hypertension) Qualifiers: Hypertension type: essential hypertension Qualified Code(s): I10 - Essential (primary) hypertension Is this a current diagnosis for this admission?: Yes (5) Schizophrenia Qualifiers: Schizophrenia type: unspecified Qualified Code(s): F20.9 - Schizophrenia, unspecified Is this a current diagnosis for this admission?: Yes - Plan Summary Summary: Will be admitted tonight be placed on beta-campos as well as a statin. She will have cardiac enzymes tonight every 6 hours times 3 repeat EKG in the morning and an echocardiogram as well.. She was seen in consultation by Dr. Linda, logistician, who is consulting on the case. 12/14/2018 Dr. Linda the logistician, recommended that we pursue testing to rule out pulmonary embolism due to recent due to echocardiogram changes. Patient appears to be medically stable from a cardiac standpoint in that her troponins were negative. I have ordered a VQ scan to rule out pulmonary embolism. If this is negative we will treat patient aggressively with medical therapy 12/15/2018 No evidence of PE on the VQ scan. Patient's medications and adjusted. Waiting to go back to long term. Patient medically stable - Time Time Spent with patient: 25-34 minutes
[2018-12-15] MEDS: NORMAL SALINE 1000 ML 1,000 ML IV PRN (14:27)
[2018-12-15] MEDS ORDERED: CIPROFLOXACIN HCL 500 MG TABLET PO SCH (20:00)
[2018-12-15] MEDS: ATORVASTATIN CALCIUM 40 MG TABLET PO SCH (22:22)
[2018-12-16] MEDS: HEPARIN SOD (PORCINE) 5,000 UNIT/ML 1 ML VIAL SUBCUT SCH ×3 (05:56→22:24)
[2018-12-16] MEDS: LEVOTHYROXINE SODIUM 0.075 MG TABLET PO SCH (05:56)
[2018-12-16] MEDS: CIPROFLOXACIN HCL 500 MG TABLET PO SCH ×2 (09:29→22:24)
[2018-12-16] MEDS: DOCUSATE SODIUM 100 MG CAPSULE PO SCH (09:29)
[2018-12-16] MEDS: METFORMIN HCL 500 MG TABLET PO SCH ×2 (09:29→17:53)
[2018-12-16] MEDS: QUETIAPINE FUMARATE 25 MG TABLET PO SCH ×2 (09:29→22:24)
[2018-12-16] MEDS: VALPROATE SODIUM SYRUP 250 MG/5 ML UDCUP PO SCH ×2 (09:29→22:30)
[2018-12-16] MEDS: RANOLAZINE 500 MG TAB.SR.12H PO SCH ×2 (09:29→22:24)
[2018-12-16] MEDS: FAMOTIDINE 20 MG TABLET PO SCH ×2 (09:30→22:23)
[2018-12-16] MEDS: METOPROLOL SUCCINATE 25 MG TAB.SR.24H PO SCH (09:30)
[2018-12-16] MEDS: MULTIVITAMIN TABLET PO SCH (09:30)
[2018-12-16] MEDS: ASPIRIN 81 MG TABLET, CHEWABLE PO SCH (09:31)
[2018-12-16] MEDS: BUSPIRONE HCL 10 MG TABLET PO SCH (09:31)
[2018-12-16] MEDS: METOCLOPRAMIDE HCL 10 MG TABLET PO SCH ×3 (09:31→17:54)
[2018-12-16] MEDS: INSULIN REG, HUMAN 100 UNIT/ML 3 ML VIAL (PYX) SUBCUT SCH ×4 (09:32→22:26)
--- NOTE | 2018-12-16 17:02 | PDOC PROGRESS REPORT ---
Subjective Progress Note for:: 12/16/18 Subjective:: 58-year-old female who was admitted yesterday through the emergency room for chest pain. Appreciate cardiology's note, d-dimer was elevated however due to her renal function will pursue with a VQ scan instead of a CT angiogram rule out PE Serial troponins are negative. 12/15/2018 Patient waiting to go back to intermediate. Will make medication changes at time of discharge. Patient's blood sugars on admission was 378, and 166 this morning 12/16/2018 She is having no chest pain. Vital signs are stable O2 sat 100% on room air Reason For Visit: CHEST PAIN, CORONARY ARTERY DISEASE, [place], Physical Exam Vital Signs: Temp Pulse Resp BP Pulse Ox 97.7 F 66 20 124/76 100 12/16/18 12:27 12/16/18 12:27 12/16/18 12:27 12/16/18 12:27 12/16/18 12:27 Intake & Output 12/15/18 12/16/18 12/17/18 06:59 06:59 06:59 Intake Total 702 1458 222 Balance 702 1458 222 Weight 76 kg 76.2 kg General appearance: PRESENT: no acute distress Respiratory exam: PRESENT: clear to auscultation ailyn. ABSENT: rales, rhonchi, wheezes Cardiovascular exam: PRESENT: RRR. ABSENT: diastolic murmur, rubs, systolic murmur Neurological exam: PRESENT: alert, awake, oriented to person, oriented to place, oriented to time, oriented to situation, CN II-XII grossly intact. ABSENT: motor sensory deficit Psychiatric exam: PRESENT: flat affect Results Laboratory Results: 12/14/18 05:51 12/14/18 05:51 12/13/18 12/13/18 12/14/18 13:47 19:30 01:25 CK-MB (CK-2) 0.91 Troponin I < 0.012 0.018 < 0.012 12/14/18 12/14/18 05:51 12:03 CK-MB (CK-2) 0.86 0.82 Troponin I 0.012 0.015 Impressions: Chest X-Ray 12/13/18 13:15 IMPRESSION: Borderline heart size without pulmonary edema. Lung Scan-VQ NM 12/14/18 00:00 IMPRESSION: Nondiagnostic ventilation Low probability for pulmonary embolus Assessment and Plan - Diagnosis (1) Chest pain Qualifiers: Chest pain type: other chest pain Qualified Code(s): R07.89 - Other chest pain; R07.8 - Other chest pain Is this a current diagnosis for this admission?: Yes (2) Bipolar 1 disorder, depressed Is this a current diagnosis for this admission?: Yes (3) CAD (coronary artery disease) Qualifiers: Coronary Disease-Associated Artery/Lesion type: unspecified vessel or lesion type [place] vs. transplanted heart: [place] heart Associated angina: with unspecified angina Qualified Code(s): I25.119 - Atherosclerotic heart disease of [place] coronary artery with unspecified angina pectoris Is this a current diagnosis for this admission?: Yes (4) HTN (hypertension) Qualifiers: Hypertension type: essential hypertension Qualified Code(s): I10 - Essential (primary) hypertension Is this a current diagnosis for this admission?: Yes (5) Schizophrenia Qualifiers: Schizophrenia type: unspecified Qualified Code(s): F20.9 - Schizophrenia, unspecified Is this a current diagnosis for this admission?: Yes - Plan Summary Summary: Will be admitted tonight be placed on beta-campos as well as a statin. She will have cardiac enzymes tonight every 6 hours times 3 repeat EKG in the morning and an echocardiogram as well.. She was seen in consultation by Dr. Linda, eyedotter, who is consulting on the case. 12/14/2018 Dr. Linda the eyedotter, recommended that we pursue testing to rule out pulmonary embolism due to recent due to echocardiogram changes. Patient appears to be medically stable from a cardiac standpoint in that her troponins were negative. I have ordered a VQ scan to rule out pulmonary embolism. If this is negative we will treat patient aggressively with medical therapy 12/15/2018 No evidence of PE on the VQ scan. Patient's medications and adjusted. Waiting to go back to intermediate. Patient medically stable 12/16/2018 Patient's paperwork has been filled out and waiting to go back to [facility] No chest pain no shortness of breath Repeat labs in the morning, continue current medications - Time Time Spent with patient: 15-24 minutes
[2018-12-16 18:23] LABS: APPEARANCE,URINE SLIGHTLY-CLOUDY; BILIRUBIN,URINE NEGATIVE (NEGATIVE); COLOR,URINE YELLOW; GLUCOSE, URINE NEGATIVE (NEGATIVE); KETONES,URINE NEGATIVE (NEGATIVE); PROTEIN,URINE 30 mg/dL (NEGATIVE); URINE SPECIFIC GRAVITY 1.013
[2018-12-16] MEDS: ATORVASTATIN CALCIUM 40 MG TABLET PO SCH (22:24)
[2018-12-17] MEDS: HEPARIN SOD (PORCINE) 5,000 UNIT/ML 1 ML VIAL SUBCUT SCH ×3 (05:45→21:40)
[2018-12-17] MEDS: LEVOTHYROXINE SODIUM 0.075 MG TABLET PO SCH (05:45)
[2018-12-17 07:02] LABS: ABSOLUTE EOSINOPHILS # (AUTO) 0.1 10^3/uL (0.0-0.6); ABSOLUTE LYMPHOCYTES (AUTO) 1.7 10^3/uL (0.5-4.7); ABSOLUTE MONOCYTES (AUTO) 1.1 10^3/uL (0.1-1.4); ABSOLUTE NEUT (AUTO) 4.2 10^3/uL (1.7-8.2); BASOPHILS % (AUTO) 0.3 % (0-2); EOSINOPHILS % (AUTO) 1.6 % (0-6); HEMATOCRIT 37.2 % (36.0-47.0); LYMPHOCYTES % (AUTO) 23.8 % (13-45); MEAN CORPUSCULAR HEMOGLOBIN 27.7 pg (27.0-33.4); MEAN CORPUSCULAR HGB CONC 32.3 g/dL (32.0-36.0); MEAN CORPUSCULAR VOLUME 86 fl (80-97); MONOCYTES % (AUTO) 14.9 % (3-13); PLATELET COUNT 189 10^3/uL (150-450); RED BLOOD COUNT 4.34 10^6/uL (3.72-5.28); SEGMENTED NEUTROPHILS % (AUTO) 59.4 % (42-78); TOTAL CELLS COUNTED % (AUTO) 100 %; WHITE BLOOD COUNT 7.1 10^3/uL (4.0-10.5)
[2018-12-17 07:03] LABS: ANION GAP 14 (5-19); BLOOD UREA NITROGEN 27 mg/dL (7-20); CALCIUM 9.8 mg/dL (8.4-10.2); CARBON DIOXIDE 20 mmol/L (22-30); CHLORIDE 108 mmol/L (98-107); GLUCOSE 116 mg/dL (75-110); POTASSIUM 4.2 mmol/L (3.6-5.0)
[2018-12-17] MEDS: QUETIAPINE FUMARATE 25 MG TABLET PO SCH ×2 (09:51→21:39)
[2018-12-17] MEDS: FAMOTIDINE 20 MG TABLET PO SCH ×2 (09:51→21:39)
[2018-12-17] MEDS: VALPROATE SODIUM SYRUP 250 MG/5 ML UDCUP PO SCH ×2 (09:51→21:40)
[2018-12-17] MEDS: METOPROLOL SUCCINATE 25 MG TAB.SR.24H PO SCH (09:52)
[2018-12-17] MEDS: METFORMIN HCL 500 MG TABLET PO SCH ×2 (09:52→17:51)
[2018-12-17] MEDS: METOCLOPRAMIDE HCL 10 MG TABLET PO SCH ×3 (09:52→17:51)
[2018-12-17] MEDS: MULTIVITAMIN TABLET PO SCH (09:53)
[2018-12-17] MEDS: DOCUSATE SODIUM 100 MG CAPSULE PO SCH (09:53)
[2018-12-17] MEDS: BUSPIRONE HCL 10 MG TABLET PO SCH (09:53)
[2018-12-17] MEDS: CIPROFLOXACIN HCL 500 MG TABLET PO SCH ×2 (09:53→21:39)
[2018-12-17] MEDS: RANOLAZINE 500 MG TAB.SR.12H PO SCH ×2 (09:53→21:39)
[2018-12-17] MEDS: ASPIRIN 81 MG TABLET, CHEWABLE PO SCH (09:53)
[2018-12-17] MEDS: INSULIN REG, HUMAN 100 UNIT/ML 3 ML VIAL (PYX) SUBCUT SCH ×4 (09:56→21:39)
--- NOTE | 2018-12-17 16:09 | PDOC PROGRESS REPORT ---
Subjective Progress Note for:: 12/17/18 Subjective:: 58-year-old female who was admitted yesterday through the emergency room for chest pain. Appreciate cardiology's note, d-dimer was elevated however due to her renal function will pursue with a VQ scan instead of a CT angiogram rule out PE Serial troponins are negative. 12/15/2018 [facility] Will make medication changes at time of discharge. Patient's blood sugars on admission was 378, and 166 this morning 12/16/2018 She is having no chest pain. Vital signs are stable O2 sat 100% on room air Patient's vital signs are stable blood pressure 119/74 temp 98.5 pulse is 68 and regular oxygen saturation 98% on room air She appears slightly dry probably from not drinking much Urine culture growing out gram-negative rods, currently on Cipro Patient is IV currently KVO will increase his 100/h Reason For Visit: CHEST PAIN, CORONARY ARTERY DISEASE, [place], Physical Exam Vital Signs: Temp Pulse Resp BP Pulse Ox 98.5 F 68 16 119/74 98 12/17/18 11:17 12/17/18 11:17 12/17/18 11:17 12/17/18 11:17 12/17/18 11:17 Intake & Output 12/16/18 12/17/18 12/18/18 06:59 06:59 06:59 Intake Total 1458 684 225 Balance 1458 684 225 Weight 76.2 kg 75.9 kg Results Laboratory Results: 12/17/18 05:44 12/17/18 05:44 12/16/18 12/17/18 12/17/18 17:30 05:44 05:44 WBC 7.1 RBC 4.34 Hgb 12.0 Hct 37.2 MCV 86 MCH 27.7 MCHC 32.3 RDW 21.0 H Plt Count 189 Seg Neutrophils % 59.4 Sodium 141.5 Potassium 4.2 Chloride 108 H Carbon Dioxide 20 L Anion Gap 14 BUN 27 H Creatinine 1.38 H Est GFR ( Amer) 47 L Glucose 116 H Calcium 9.8 Urine Color YELLOW Urine Appearance SLIGHTLY-CLOUDY Urine pH 5.0 Ur Specific [place] 1.013 Urine Protein 30 H Urine Glucose (UA) NEGATIVE Urine Ketones NEGATIVE Urine Blood SMALL H Urine RBC (Auto) 18 12/13/18 12/13/18 12/14/18 13:47 19:30 01:25 CK-MB (CK-2) 0.91 Troponin I < 0.012 0.018 < 0.012 12/14/18 12/14/18 05:51 12:03 CK-MB (CK-2) 0.86 0.82 Troponin I 0.012 0.015 Impressions: Chest X-Ray 12/13/18 13:15 IMPRESSION: Borderline heart size without pulmonary edema. Lung Scan-VQ NM 12/14/18 00:00 IMPRESSION: Nondiagnostic ventilation Low probability for pulmonary embolus Assessment and Plan - Diagnosis (1) Chest pain Qualifiers: Chest pain type: other chest pain Qualified Code(s): R07.89 - Other chest pain; R07.8 - Other chest pain Is this a current diagnosis for this admission?: Yes (2) Bipolar 1 disorder, depressed Is this a current diagnosis for this admission?: Yes (3) CAD (coronary artery disease) Qualifiers: Coronary Disease-Associated Artery/Lesion type: unspecified vessel or lesion type [place] vs. transplanted heart: [place] heart Associated angina: with unspecified angina Qualified Code(s): I25.119 - Atherosclerotic heart disease of [place] coronary artery with unspecified angina pectoris Is this a current diagnosis for this admission?: Yes (4) HTN (hypertension) Qualifiers: Hypertension type: essential hypertension Qualified Code(s): I10 - Essential (primary) hypertension Is this a current diagnosis for this admission?: Yes (5) Schizophrenia Qualifiers: Schizophrenia type: unspecified Qualified Code(s): F20.9 - Schizophrenia, unspecified Is this a current diagnosis for this admission?: Yes - Plan Summary Summary: Will be admitted tonight be placed on beta-campos as well as a statin. She will have cardiac enzymes tonight every 6 hours times 3 repeat EKG in the morning and an echocardiogram as well.. She was seen in consultation by Dr. Linda, event executive, who is consulting on the case. 12/14/2018 Dr. Linda the event executive, recommended that we pursue testing to rule out pulmonary embolism due to recent due to echocardiogram changes. Patient appears to be medically stable from a cardiac standpoint in that her troponins were negative. I have ordered a VQ scan to rule out pulmonary embolism. If this is negative we will treat patient aggressively with medical therapy 12/15/2018 No evidence of PE on the VQ scan. Patient's medications and adjusted. [facility]. Patient medically stable 12/16/2018 Patient's paperwork has been filled out and waiting to go back to [facility] No chest pain no shortness of breath Repeat labs in the morning, continue current medications - Time Time Spent with patient: 15-24 minutes
[2018-12-17] MEDS: NORMAL SALINE 1000 ML 1,000 ML IV PRN (18:38)
[2018-12-17] MEDS: ATORVASTATIN CALCIUM 40 MG TABLET PO SCH (21:39)
[2018-12-18] MEDS: LEVOTHYROXINE SODIUM 0.075 MG TABLET PO SCH (05:48)
[2018-12-18] MEDS: HEPARIN SOD (PORCINE) 5,000 UNIT/ML 1 ML VIAL SUBCUT SCH ×3 (05:52→22:20)
[2018-12-18] MEDS: INSULIN REG, HUMAN 100 UNIT/ML 3 ML VIAL (PYX) SUBCUT SCH ×4 (09:49→22:14)
[2018-12-18] MEDS: MULTIVITAMIN TABLET PO SCH (09:54)
[2018-12-18] MEDS: METOPROLOL SUCCINATE 25 MG TAB.SR.24H PO SCH (09:54)
[2018-12-18] MEDS: BUSPIRONE HCL 10 MG TABLET PO SCH (09:54)
[2018-12-18] MEDS: METFORMIN HCL 500 MG TABLET PO SCH ×2 (09:54→17:59)
[2018-12-18] MEDS: DOCUSATE SODIUM 100 MG CAPSULE PO SCH (09:54)
[2018-12-18] MEDS: QUETIAPINE FUMARATE 25 MG TABLET PO SCH ×2 (09:55→22:22)
[2018-12-18] MEDS: VALPROATE SODIUM SYRUP 250 MG/5 ML UDCUP PO SCH ×2 (09:55→22:19)
[2018-12-18] MEDS: METOCLOPRAMIDE HCL 10 MG TABLET PO SCH ×3 (09:55→18:00)
[2018-12-18] MEDS: ASPIRIN 81 MG TABLET, CHEWABLE PO SCH (09:55)
[2018-12-18] MEDS: FAMOTIDINE 20 MG TABLET PO SCH ×2 (09:55→22:21)
[2018-12-18] MEDS: CIPROFLOXACIN HCL 500 MG TABLET PO SCH (09:55)
[2018-12-18] MEDS: RANOLAZINE 500 MG TAB.SR.12H PO SCH ×2 (09:55→22:21)
[2018-12-18] MEDS: NORMAL SALINE 1000 ML 1,000 ML IV PRN (13:18)
--- NOTE | 2018-12-18 14:50 | PDOC PROGRESS REPORT ---
Subjective Progress Note for:: 12/18/18 Subjective:: 58-year-old female who was admitted yesterday through the emergency room for chest pain. Appreciate cardiology's note, d-dimer was elevated however due to her renal function will pursue with a VQ scan instead of a CT angiogram rule out PE Serial troponins are negative. 12/15/2018 Patient waiting to go back to intermediate. Will make medication changes at time of discharge. Patient's blood sugars on admission was 378, and 166 this morning 12/16/2018 She is having no chest pain. Vital signs are stable O2 sat 100% on room air Patient's vital signs are stable blood pressure 119/74 temp 98.5 pulse is 68 and regular oxygen saturation 98% on room air She appears slightly dry probably from not drinking much Urine culture growing out gram-negative rods, currently on Cipro Patient is IV currently KVO will increase his 100/h 12/18/2018 His final pathology came back from [facility] showing E. coli and Proteus mirabilis resistant to Cipro which she is currently on we will switch to p.o. Bactrim discharge patient on that medication for 10 days Reason For Visit: CHEST PAIN, CORONARY ARTERY DISEASE, [place], Physical Exam Vital Signs: Temp Pulse Resp BP Pulse Ox 97.8 F 71 14 122/68 96 12/18/18 11:39 12/18/18 11:39 12/18/18 11:39 12/18/18 11:39 12/18/18 11:39 Intake & Output 12/17/18 12/18/18 12/19/18 06:59 06:59 06:59 Intake Total 684 1575 120 Balance 684 1575 120 Weight 75.9 kg 74.4 kg General appearance: PRESENT: no acute distress, other - Patient voices no complaints Respiratory exam: PRESENT: clear to auscultation ailyn. ABSENT: rales, rhonchi, wheezes Cardiovascular exam: PRESENT: RRR. ABSENT: diastolic murmur, rubs, systolic murmur GI/Abdominal exam: PRESENT: normal bowel sounds, soft. ABSENT: distended, guarding, mass, organolmegaly, rebound, tenderness Neurological exam: PRESENT: alert, awake, oriented to person, oriented to place, oriented to time, oriented to situation, CN II-XII grossly intact. ABSENT: motor sensory deficit Psychiatric exam: PRESENT: flat affect Results Laboratory Results: 12/17/18 05:44 12/17/18 05:44 12/16/18 17:30 Clean Catch Midstream Urine Culture - Final Escherichia Coli Proteus Mirabilis 12/13/18 12/13/18 12/14/18 13:47 19:30 01:25 CK-MB (CK-2) 0.91 Troponin I < 0.012 0.018 < 0.012 12/14/18 12/14/18 05:51 12:03 CK-MB (CK-2) 0.86 0.82 Troponin I 0.012 0.015 Impressions: Chest X-Ray 12/13/18 13:15 IMPRESSION: Borderline heart size without pulmonary edema. Lung Scan-VQ NM 12/14/18 00:00 IMPRESSION: Nondiagnostic ventilation Low probability for pulmonary embolus Assessment and Plan - Diagnosis (1) Chest pain Qualifiers: Chest pain type: other chest pain Qualified Code(s): R07.89 - Other chest pain; R07.8 - Other chest pain Is this a current diagnosis for this admission?: Yes (2) Bipolar 1 disorder, depressed Is this a current diagnosis for this admission?: Yes (3) CAD (coronary artery disease) Qualifiers: Coronary Disease-Associated Artery/Lesion type: unspecified vessel or lesion type [place] vs. transplanted heart: [place] heart Associated angina: with unspecified angina Qualified Code(s): I25.119 - Atherosclerotic heart disease of [place] coronary artery with unspecified angina pectoris Is this a current diagnosis for this admission?: Yes (4) HTN (hypertension) Qualifiers: Hypertension type: essential hypertension Qualified Code(s): I10 - Essential (primary) hypertension Is this a current diagnosis for this admission?: Yes (5) Schizophrenia Qualifiers: Schizophrenia type: unspecified Qualified Code(s): F20.9 - Schizophrenia, unspecified Is this a current diagnosis for this admission?: Yes (6) UTI (urinary tract infection) Is this a current diagnosis for this admission?: Yes - Plan Summary Summary: Will be admitted tonight be placed on beta-campos as well as a statin. She will have cardiac enzymes tonight every 6 hours times 3 repeat EKG in the morning and an echocardiogram as well.. She was seen in consultation by Dr. Linda, swabber, who is consulting on the case. 12/14/2018 Dr. Linda the swabber, recommended that we pursue testing to rule out pulmonary embolism due to recent due to echocardiogram changes. Patient appears to be medically stable from a cardiac standpoint in that her troponins were negative. I have ordered a VQ scan to rule out pulmonary embolism. If this is negative we will treat patient aggressively with medical therapy 12/15/2018 No evidence of PE on the VQ scan. Patient's medications and adjusted. Waiting to go back to intermediate. Patient medically stable 12/16/2018 Patient's paperwork has been filled out and waiting to go back to [facility] No chest pain no shortness of breath Repeat labs in the morning, continue current medications 12/18/2018 DC Cipro after 4 days start on Bactrim DS 1 tablet twice daily CBC is normal vital signs are stable - Time Time Spent with patient: 15-24 minutes
[2018-12-18] MEDS: ATORVASTATIN CALCIUM 40 MG TABLET PO SCH (22:20)
[2018-12-18] MEDS: SULFAMETHOXAZOLE/TRIMETHOPRIM 800-160 MG TABLET PO SCH (22:22)
[2018-12-19] MEDS: HEPARIN SOD (PORCINE) 5,000 UNIT/ML 1 ML VIAL SUBCUT SCH ×2 (05:28→15:43)
[2018-12-19] MEDS: LEVOTHYROXINE SODIUM 0.075 MG TABLET PO SCH (05:28)
[2018-12-19] MEDS: INSULIN REG, HUMAN 100 UNIT/ML 3 ML VIAL (PYX) SUBCUT SCH ×2 (11:56→15:44)
[2018-12-19] MEDS: ASPIRIN 81 MG TABLET, CHEWABLE PO SCH (12:03)
[2018-12-19] MEDS: DOCUSATE SODIUM 100 MG CAPSULE PO SCH (12:03)
[2018-12-19] MEDS: MULTIVITAMIN TABLET PO SCH (12:03)
[2018-12-19] MEDS: BUSPIRONE HCL 10 MG TABLET PO SCH (12:03)
[2018-12-19] MEDS: METFORMIN HCL 500 MG TABLET PO SCH (12:03)
[2018-12-19] MEDS: QUETIAPINE FUMARATE 25 MG TABLET PO SCH (12:04)
[2018-12-19] MEDS: RANOLAZINE 500 MG TAB.SR.12H PO SCH (12:04)
[2018-12-19] MEDS: SULFAMETHOXAZOLE/TRIMETHOPRIM 800-160 MG TABLET PO SCH (12:04)
[2018-12-19] MEDS: METOPROLOL SUCCINATE 25 MG TAB.SR.24H PO SCH (12:04)
[2018-12-19] MEDS: FAMOTIDINE 20 MG TABLET PO SCH (12:04)
[2018-12-19] MEDS: VALPROATE SODIUM SYRUP 250 MG/5 ML UDCUP PO SCH (12:05)
[2018-12-19] MEDS: METOCLOPRAMIDE HCL 10 MG TABLET PO SCH ×2 (12:11→12:12)
[2018-12-19 12:14] VITALS: BP 125/65
--- NOTE | 2018-12-19 12:24 | PDOC TRANSFER SUMMARY ---
Impression - Admit/DC Date/PCP Admission Date/Primary Care Provider: 12/13/18 17:16 TREVON SKAGGS PA-C Discharge Date: 12/19/18 - Discharge Diagnosis (1) Chest pain Is this a current diagnosis for this admission?: Yes (2) Bipolar 1 disorder, depressed Is this a current diagnosis for this admission?: Yes (3) CAD (coronary artery disease) Is this a current diagnosis for this admission?: Yes (4) HTN (hypertension) Is this a current diagnosis for this admission?: Yes (5) Schizophrenia Is this a current diagnosis for this admission?: Yes (6) UTI (urinary tract infection) Is this a current diagnosis for this admission?: Yes - Assessment Summary: Will be admitted tonight be placed on beta-campos as well as a statin. She will have cardiac enzymes tonight every 6 hours times 3 repeat EKG in the morning and an echocardiogram as well.. She was seen in consultation by Dr. Linda, lcpc, who is consulting on the case. 12/14/2018 Dr. Linda the lcpc, recommended that we pursue testing to rule out pulmonary embolism due to recent due to echocardiogram changes. Patient appears to be medically stable from a cardiac standpoint in that her tro ponins were negative. I have ordered a VQ scan to rule out pulmonary embolism. If this is negative we will treat patient aggressively with medical therapy 12/15/2018 No evidence of PE on the VQ scan. Patient's medications and adjusted. Waiting to go back to custodial. Patient medically stable 12/16/2018 Patient's paperwork has been filled out and waiting to go back to [facility] No chest pain no shortness of breath Repeat labs in the morning, continue current medications 12/18/2018 DC Cipro after 4 days start on Bactrim DS 1 tablet twice daily CBC is normal vital signs are stable 12/19/2018 Patient is going back to [facility] today. Patient has had no chest pain since her day of admission. I do not think this is on the basis of cardiac ischemia to begin with. She will need to take Bactrim DS for the next 7 days, twice daily Previous medications. She is medically stable - Additional Information Resuscitation Status: Full Code Discharge Diet: As Tolerated Discharge Activity: Balance Activity w/Rest Referrals: [facility] [Outside] TREVON SKAGGS PA-C [Primary Care Provider] - Follow up as needed Prescriptions: Sulfamethoxazole/Trimethoprim [Septra-Ds 800-160 mg Tablet] 1 tab PO Q12 #14 tablet Home Medications: Acetaminophen [Tylenol 325 mg Tablet] 650 mg PO Q6HP PRN 12/13/18 Aspirin [Aspirin 81 mg Chewable Tablet] 81 mg PO QHS 12/13/18 Atorvastatin Calcium [Lipitor 40 mg Tablet] 40 mg PO QHS 12/13/18 Buspirone HCl [Buspar 5 mg Tablet] 5 mg PO QAM 12/13/18 Docusate Sodium [Colace 100 mg Capsule] 100 mg PO BID 12/13/18 Famotidine [Pepcid 20 mg Tablet] 20 mg PO BID 12/13/18 Levothyroxine Sodium 75 mcg PO Q6AM 12/13/18 Metformin HCl [Glucophage XR 500 mg Tablet] 500 mg PO QAM 12/13/18 Metoclopramide HCl [Reglan] 5 mg PO AC 12/13/18 Metoprolol Succinate [Toprol Xl 25 mg Tab.sr] 25 mg PO QAM 12/13/18 Multivitamin [Multiple Vitamins] 1 tab PO QAM 12/13/18 Nitroglycerin [Nitrostat 0.4 mg (1/150 Gr) Tabs 25/Bottle] 0.4 mg SL Q5MP PRN 12/13/18 Quetiapine Fumarate [Seroquel] 50 mg PO BID 12/13/18 Ranolazine [Ranexa 500 mg Tab.sr] 500 mg PO BID 12/13/18 Valproic Acid [Depakene] 500 mg PO BID 12/13/18 Aspirin [Aspirin 81 mg Chewable Tablet] 81 mg PO DAILY tab.chew 12/19/18 Sulfamethoxazole/Trimethoprim [Septra-Ds 800-160 mg Tablet] 1 tab PO Q12 #14 tablet 12/19/18 History of Present Illiness History of Present Illness: CHARLEY SHERMAN is a 58 year old female comes in with a 2-day history of chest pain. Patient states that yesterday for just a few minutes she had chest pain which went down to the left arm. States that this occurred again today for just a few minutes as well patient denies chest pain now. Unfortunately because of dementia i.e. psychiatric disorder patient is a poor historian. He is a resident of a custodial secondary to the dementia and psychiatric disorders. Patient has had 2 previous stents and a CABG. Recent stent was 1 year ago. These include Haldol. She is now to be admitted to the hospital to rule out cardiac disease as the etiology of her chest pain. Physical Exam Vital Signs: Temp Pulse Resp BP Pulse Ox 97.5 F 71 15 125/65 97 12/19/18 10:52 12/19/18 10:52 12/19/18 10:52 12/19/18 10:52 12/19/18 10:52 Intake & Output 12/18/18 12/19/18 12/20/18 06:59 06:59 06:59 Intake Total 1575 860 240 Balance 1575 860 240 Weight 74.4 kg 74.4 kg Results Laboratory Results: WBC 7.1 10^3/uL (4.0-10.5) 12/17/18 05:44 RBC 4.34 10^6/uL (3.72-5.28) 12/17/18 05:44 Hgb 12.0 g/dL (12.0-15.5) 12/17/18 05:44 Hct 37.2 % (36.0-47.0) 12/17/18 05:44 MCV 86 fl (80-97) 12/17/18 05:44 MCH 27.7 pg (27.0-33.4) 12/17/18 05:44 MCHC 32.3 g/dL (32.0-36.0) 12/17/18 05:44 RDW 21.0 % (11.5-14.0) H 12/17/18 05:44 Plt Count 189 10^3/uL (150-450) 12/17/18 05:44 Lymph % (Auto) 23.8 % (13-45) 12/17/18 05:44 [place] % (Auto) 14.9 % (3-13) H 12/17/18 05:44 Eos % (Auto) 1.6 % (0-6) 12/17/18 05:44 Baso % (Auto) 0.3 % (0-2) 12/17/18 05:44 Absolute Neuts (auto) 4.2 10^3/uL (1.7-8.2) 12/17/18 05:44 Absolute Lymphs (auto) 1.7 10^3/uL (0.5-4.7) 12/17/18 05:44 Absolute Monos (auto) 1.1 10^3/uL (0.1-1.4) 12/17/18 05:44 Absolute Eos (auto) 0.1 10^3/uL (0.0-0.6) 12/17/18 05:44 Absolute Basos (auto) 0.0 10^3/uL (0.0-0.2) 12/17/18 05:44 Seg Neutrophils % 59.4 % (42-78) 12/17/18 05:44 PT 13.9 SEC (11.4-15.4) 12/13/18 13:47 INR 1.07 12/13/18 13:47 APTT 24.7 SEC (23.5-35.8) 12/14/18 05:51 D-Dimer 0.93 ug/mL (0.00-0.50) H 12/14/18 05:51 Sodium 141.5 mmol/L (137-145) 12/17/18 05:44 Potassium 4.2 mmol/L (3.6-5.0) 12/17/18 05:44 Chloride 108 mmol/L (98-107) H 12/17/18 05:44 Carbon Dioxide 20 mmol/L (22-30) L 12/17/18 05:44 Anion Gap 14 (5-19) 12/17/18 05:44 BUN 27 mg/dL (7-20) H 12/17/18 05:44 Creatinine 1.38 mg/dL (0.52-1.25) H 12/17/18 05:44 Est GFR ( Amer) 47 (>60) L 12/17/18 05:44 Est GFR (MDRD) Non-Af 39 (>60) L 12/17/18 05:44 Glucose 116 mg/dL (75-110) H 12/17/18 05:44 POC Glucose 89 mg/dL (70-110) 12/19/18 08:49 Calcium 9.8 mg/dL (8.4-10.2) 12/17/18 05:44 Magnesium 1.8 mg/dL (1.6-2.3) 12/14/18 05:51 Total Bilirubin 0.6 mg/dL (0.2-1.3) 12/14/18 05:51 Direct Bilirubin 0.3 mg/dL (0.0-0.4) 12/14/18 05:51 Neonat Total Bilirubin Not Reportable 12/14/18 05:51 Neonat Direct Bilirubin Not Reportable 12/14/18 05:51 Neonat Indirect Bili Not Reportable 12/14/18 05:51 AST 22 U/L (14-36) 12/14/18 05:51 ALT 13 U/L (<35) 12/14/18 05:51 Alkaline Phosphatase 110 U/L (38-126) 12/14/18 05:51 CK-MB (CK-2) 0.82 ng/mL (<4.55) 12/14/18 12:03 Troponin I 0.015 ng/mL 12/14/18 12:03 Total Protein 7.7 g/dL (6.3-8.2) 12/14/18 05:51 Albumin 3.9 g/dL (3.5-5.0) 12/14/18 05:51 TSH 4.23 uIU/mL (0.47-4.68) 12/13/18 13:47 Urine Color YELLOW 12/16/18 17:30 Urine Appearance SLIGHTLY-CLOUDY 12/16/18 17:30 Urine pH 5.0 (5.0-9.0) 12/16/18 17:30 Ur Specific [place] 1.013 12/16/18 17:30 Urine Protein 30 mg/dL (NEGATIVE) H 12/16/18 17:30 Urine Glucose (UA) NEGATIVE mg/dL (NEGATIVE) 12/16/18 17:30 Urine Ketones NEGATIVE mg/dL (NEGATIVE) 12/16/18 17:30 Urine Blood SMALL (NEGATIVE) H 12/16/18 17:30 Urine Nitrite NEGATIVE (NEGATIVE) 12/13/18 19:30 Urine Nitrite (Reflex) NEGATIVE (NEGATIVE) 12/16/18 17:30 Urine Bilirubin NEGATIVE (NEGATIVE) 12/16/18 17:30 Urine Urobilinogen 2.0 mg/dL (<2.0) H 12/16/18 17:30 Ur Leukocyte Esterase LARGE (NEGATIVE) H 12/13/18 19:30 Leukocyte Esterase Rfl MODERATE (NEGATIVE) H 12/16/18 17:30 Urine WBC (Auto) >182 /HPF 12/13/18 19:30 Urine RBC (Auto) 18 /HPF 12/16/18 17:30 U Hyaline Cast (Auto) 1 /LPF 12/16/18 17:30 Urine Bacteria (Auto) 2+ /HPF 12/16/18 17:30 Urine WBC (Reflex) 156 /HPF 12/16/18 17:30 Urine WBC Clumps FEW /HPF 12/13/18 19:30 Squamous Epi Cells Auto 2 /HPF 12/16/18 17:30 Urine Mucus (Auto) RARE /LPF 12/16/18 17:30 Urine Yeast (Budding) PRESENT /HPF 12/13/18 19:30 Urine Ascorbic Acid NEGATIVE (NEGATIVE) 12/16/18 17:30 12/13/18 12/13/18 12/14/18 13:47 19:30 01:25 CK-MB (CK-2) 0.91 Troponin I < 0.012 0.018 < 0.012 12/14/18 12/14/18 05:51 12:03 CK-MB (CK-2) 0.86 0.82 Troponin I 0.012 0.015 Impressions: Chest X-Ray 12/13/18 13:15 IMPRESSION: Borderline heart size without pulmonary edema. Lung Scan-VQ NM 12/14/18 00:00 IMPRESSION: Nondiagnostic ventilation Low probability for pulmonary embolus Stroke Is this a Stroke Patient?: No Acute Heart Failure - Is this a Heart Failure Patient?: No
== END 2018-12-19 17:54 ==
LOC: ER 13:09 → EH 17:16 → 5 19:45
PROVIDERS: ADMIT Internal Medicine; ATTEND Internal Medicine
DX: R07.89 Other chest pain (principal); I25.119 Atherosclerotic heart disease of native coronary artery with unspecified angina pectoris; N39.0 Urinary tract infection, site not specified; F31.9 Bipolar disorder, unspecified; I10 Essential (primary) hypertension; F20.9 Schizophrenia, unspecified; F03.90 Unspecified dementia, unspecified severity, without behavioral disturbance, psychotic disturbance, mood disturbance, and anxiety; E78.5 Hyperlipidemia, unspecified; J44.9 Chronic obstructive pulmonary disease, unspecified; F17.210 Nicotine dependence, cigarettes, uncomplicated; I25.2 Old myocardial infarction; E11.9 Type 2 diabetes mellitus without complications; K21.9 Gastro-esophageal reflux disease without esophagitis; I36.1 Nonrheumatic tricuspid (valve) insufficiency; B96.20 Unspecified Escherichia coli [E. coli] as the cause of diseases classified elsewhere; B96.4 Proteus (mirabilis) (morganii) as the cause of diseases classified elsewhere; Z79.84 Long term (current) use of oral hypoglycemic drugs; Z79.82 Long term (current) use of aspirin; Z95.1 Presence of aortocoronary bypass graft; Z95.5 Presence of coronary angioplasty implant and graft; Z88.8 Allergy status to other drugs, medicaments and biological substances; Z16.39 Resistance to other specified antimicrobial drug; Z86.73 Personal history of transient ischemic attack (TIA), and cerebral infarction without residual deficits; Z23 Encounter for immunization
CPT/HCPCS: 93005 ×2; 99285; 36415 ×3; 87086; 82553; 82962 ×7; 83735; 84443; 85025 ×3; 85610; 85730; 87088; 80048; 80053 ×2; 81001 ×2; 84484 ×2; 87186; 85379; 93306; 71045; 78582; 90686; 93010 ×2; 90471; G0378 ×8; A9540; A9567; J1644 ×7; J3490 ×66; J1815 ×6; J7030 ×4; Q9969

== ENCOUNTER 2018-12-27 17:24 | Inpatient (IN) | payer MEDICAID ==
[2018-12-27 18:07] LABS: ABSOLUTE BASOPHILS # (AUTO) 0.1 10^3/uL (0.0-0.2); ABSOLUTE LYMPHOCYTES (AUTO) 2.1 10^3/uL (0.5-4.7); ABSOLUTE MONOCYTES (AUTO) 0.4 10^3/uL (0.1-1.4); ABSOLUTE NEUT (AUTO) 5.5 10^3/uL (1.7-8.2); BASOPHILS % (AUTO) 0.8 % (0-2); EOSINOPHILS % (AUTO) 0.4 % (0-6); HEMATOCRIT 39.2 % (36.0-47.0); LYMPHOCYTES % (AUTO) 25.8 % (13-45); MEAN CORPUSCULAR HEMOGLOBIN 28.9 pg (27.0-33.4); MEAN CORPUSCULAR HGB CONC 33.2 g/dL (32.0-36.0); MEAN CORPUSCULAR VOLUME 87 fl (80-97); MONOCYTES % (AUTO) 5.2 % (3-13); PLATELET COUNT 287 10^3/uL (150-450); RED BLOOD COUNT 4.51 10^6/uL (3.72-5.28); RED CELL DISTRIBUTION WIDTH 22.1 % (11.5-14.0); SEGMENTED NEUTROPHILS % (AUTO) 67.8 % (42-78); TOTAL CELLS COUNTED % (AUTO) 100 %; WHITE BLOOD COUNT 8.1 10^3/uL (4.0-10.5)
[2018-12-27 18:24] LABS: ALKALINE PHOSPHATASE 144 U/L (38-126); ANION GAP 17 (5-19); ASPARTATE AMINO TRANSFERASE 30 U/L (14-36); BILIRUBIN,DIRECT 0.4 mg/dL (0.0-0.4); BILIRUBIN,TOTAL 0.8 mg/dL (0.2-1.3); BLOOD UREA NITROGEN 22 mg/dL (7-20); CALCIUM 10.6 mg/dL (8.4-10.2); CARBON DIOXIDE 22 mmol/L (22-30); CHLORIDE 100 mmol/L (98-107); GLUCOSE 225 mg/dL (75-110); POTASSIUM 5.3 mmol/L (3.6-5.0); TOTAL PROTEIN 9.9 g/dL (6.3-8.2)
[2018-12-27 18:37] LABS: APPEARANCE,URINE CLEAR; BILIRUBIN,URINE NEGATIVE (NEGATIVE); COLOR,URINE YELLOW; GLUCOSE, URINE 50 mg/dL (NEGATIVE); KETONES,URINE TRACE mg/dL (NEGATIVE); LEUKOCYTE ESTERASE,URINE NEGATIVE (NEGATIVE); NITRITE,URINE NEGATIVE (NEGATIVE); PROTEIN,URINE 100 mg/dL (NEGATIVE); URINE SPECIFIC GRAVITY 1.012; UROBILINOGEN,URINE NEGATIVE mg/dL (<2.0)
[2018-12-27] MEDS ORDERED: NORMAL SALINE 1000 ML 1,000 ML IV ONE (18:37)
[2018-12-27] MEDS ORDERED: ONDANSETRON HCL INJ/PF 4 MG/2 ML SDV IV ONE (18:38)
--- NOTE | 2018-12-27 19:20 | ER Document Report ---
ED General - General Chief Complaint: Abdominal Pain Stated Complaint: ABDOMINAL PAIN Time Seen by Provider: 12/27/18 17:51 Primary Care Provider: TREVON SKAGGS PA-C [Primary Care Provider] - Follow up as needed Notes: Patient is a 58-year-old female who resides in a senior living facility that presents to the emergency department for chief complaint of abdominal pain, nausea and vomiting. Patient reports she is been having abdominal pain for several days now with vomiting for 3 days. She states she has not had a bowel movement in approximately 9 days. She has not been able to eat or drink much due to the nausea and vomiting over the past few days. She has not received anything to help move her bowels at the nursing facility according to the patient. She currently rates her pain as a aching and bloating sensation across most of her abdomen upper and lower. She feels the pain up towards her chest as well, that radiating from the abdomen. She denies any lightheadedness, dizziness, shortness of breath or difficulty breathing. Past Medical History: Hypertension, diabetes mellitus Past Surgical History: Denies any recent or pertinent surgical history Social History: Currently resides at a senior living facility, denies tobacco, alcohol or drug use. Family History: Reviewed and noncontributory for presenting illness Allergies: Reviewed, see documented allergy list. REVIEW OF SYSTEMS: Other than noted above, the 12 point review of systems was reviewed with the patient and were negative, all pertinent findings are included in the HPI. PHYSICAL EXAMINATION: Vital signs reviewed, nursing noted reviewed. GENERAL: Elderly female, appears older than stated age. HEAD: Atraumatic, normocephalic. EYES: Eyes appear normal, extraocular movements intact, sclera anicteric, conjunctiva are normal. ENT: nares patent, oropharynx clear without exudates. Moist mucous membranes. NECK: Normal range of motion, supple without lymphadenopathy LUNGS: Breath sounds clear to auscultation bilaterally and equal. No wheezes rales or rhonchi. HEART: Regular rate and rhythm without murmurs ABDOMEN: mild diffuse tenderness to palpation, mild distention but soft to palpate, normoactive bowel sounds. No rebound, guarding, or rigidity. No masses appreciated. EXTREMITIES: Nontender, good range of motion, trace bilateral lower extremity edema NEUROLOGICAL: No focal neurological deficits. Moves all extremities spontaneously Motor and sensory grossly intact on exam. PSYCH: Normal mood, normal affect. SKIN: Warm, Dry, normal turgor, no rashes or lesions noted on exposed skin TRAVEL OUTSIDE OF THE [place] IN LAST 30 DAYS: No - Related Data Allergies/Adverse Reactions: haloperidol [From Haldol] Allergy (Unknown, Verified 12/13/18 13:26) Past Medical History - Social History Smoking Status: Unknown if Ever Smoked Family History: CAD Patient has suicidal ideation: No Patient has homicidal ideation: No - Past Medical History Cardiac Medical History: Reports: Hx Coronary Artery Disease, Hx Heart Attack - x2, Hx Hypercholesterolemia, Hx Hypertension Denies: Hx Atrial Fibrillation, Hx Congestive Heart Failure, Hx DVT, Hx Peripheral Vascular Disease, Hx Pulmonary Embolism Pulmonary Medical History: Reports: Hx Bronchitis, Hx COPD Denies: Hx Asthma, Hx Pneumonia, Hx Respiratory Failure, Hx Tuberculosis Neurological Medical History: Reports: Hx Cerebrovascular Accident. Denies: Hx Seizures Endocrine Medical History: Reports: Hx Diabetes Mellitus Type 2. Denies: Hx Hyperthyroidism, Hx Hypothyroidism Renal/ Medical History: Reports: Hx Kidney Stones. Denies: Hx Peritoneal Dialysis GI Medical History: Reports: Hx Gastroesophageal Reflux Disease. Denies: Hx Cirrhosis, Hx Crohn's Disease, Hx Hepatitis, Hx Ulcerative Colitis Musculoskeletal Medical History: Denies Hx Arthritis, Denies Hx Gout Skin Medical History: Denies Hx Eczema, Denies Hx Psoriasis Psychiatric Medical History: Reports: Hx Bipolar Disorder, Hx Depression, Hx Schizoaffective Disorder, Hx Schizophrenia Infectious Medical History: Denies: Hx Hepatitis Past Surgical History: Reports: Hx Cardiac Catheterization, Hx Cardiac Surgery - stents, CABG 09/2016, Hx Cholecystectomy, Hx Coronary Artery Bypass Graft - September 2016, Hx Coronary Stent - x2, Hx Open Heart Surgery, Hx Thyroid Surgery, Hx Tonsillectomy, Hx Tubal Ligation, Hx Urinary Tract Surgery, Hx Vascular Surgery, Other - PEG tube placement - Immunizations Hx Diphtheria, Pertussis, Tetanus Vaccination: Yes Hx Pneumococcal Vaccination: 11/29/16 Physical Exam - Vital signs Vitals: Resp 31 H 12/27/18 17:28 Course - Re-evaluation Re-evalutation: Patient seen and examined vital signs reviewed. Laboratory data and imaging were ordered as appropriate for the patient's presenting symptoms and complaint, with consideration of any critical or life threatening conditions that may be associated with their obtained history and exam as noted above. Patient was treated with IV fluids, Zofran and morphine for her pain and nausea initially, and she was ordered a mineral oil and soapsuds enema, along with rectal disimpaction, without much result, patient had a few small stools, but not significant. Results were reviewed when available and demonstrated mild increased creatinine from baseline, but not significant, mild hyperkalemia, only 5.3, patient continued to have nausea and vomiting, and some abdominal cramping, was given Phenergan, and a dose of Reglan and MiraLAX was ordered as well. The patient was re-evaluated and was stable, her blood pressure was high due to the vomiting, will allow her to settle down after treatment to see if her blood pressure comes down, otherwise will treat with some hydralazine. I discussed the case with the GI physician on-call, Dr. Goodrich who will see the patient in consult in the morning, for potential disimpaction. Evaluation was most consistent with intractable nausea and vomiting and rectal fecal impaction Results were discussed with the patient at this point after careful c onsideration I feel that that patient should be admitted to the hospital. This was discussed with the patient that it is in the best interest for their care to be admitted for further evaluation and management. Patient agreed with this plan of care. A call was placed to the admitting physician, Dr. Waters who graciously accepted the patient onto their service. *Note is created using voice recognition software and may contain spelling, syntax or grammatical errors. Laboratory 12/27/18 12/27/18 12/27/18 17:43 17:43 18:20 WBC 8.1 RBC 4.51 Hgb 13.0 Hct 39.2 MCV 87 MCH 28.9 MCHC 33.2 RDW 22.1 H Plt Count 287 Lymph % (Auto) 25.8 [place] % (Auto) 5.2 Eos % (Auto) 0.4 Baso % (Auto) 0.8 Absolute Neuts (auto) 5.5 Absolute Lymphs (auto) 2.1 Absolute Monos (auto) 0.4 Absolute Eos (auto) 0.0 Absolute Basos (auto) 0.1 Seg Neutrophils % 67.8 Sodium 139.4 Potassium 5.3 H Chloride 100 Carbon Dioxide 22 Anion Gap 17 BUN 22 H Creatinine 1.42 H Est GFR ( Amer) 46 L Est GFR (MDRD) Non-Af 38 L Glucose 225 H Calcium 10.6 H Total Bilirubin 0.8 Direct Bilirubin 0.4 Neonat Total Bilirubin Not Reportable Neonat Direct Bilirubin Not Reportable Neonat Indirect Bili Not Reportable AST 30 ALT 18 Alkaline Phosphatase 144 H Total Protein 9.9 H Albumin 5.0 Lipase 183.3 Urine Color YELLOW Urine Appearance CLEAR Urine pH 7.0 Ur Specific [place] 1.012 Urine Protein 100 H Urine Glucose (UA) 50 H Urine Ketones TRACE H Urine Blood NEGATIVE Urine Nitrite NEGATIVE Urine Bilirubin NEGATIVE Urine Urobilinogen NEGATIVE Ur Leukocyte Esterase NEGATIVE Urine WBC (Auto) 0 Urine RBC (Auto) 2 Squamous Epi Cells Auto <1 Urine Ascorbic Acid NEGATIVE Chest X-Ray 12/27/18 18:37 IMPRESSION: NO ACUTE FINDINGS. KUB X-Ray 12/27/18 18:37 IMPRESSION: NO RADIOGRAPHIC EVIDENCE FOR ACUTE ABDOMINAL DISEASE. Marked constipation. - Vital Signs Vital signs: Temp Pulse Resp BP Pulse Ox 97.3 F 21 H 194/108 H 12/27/18 17:38 12/27/18 23:10 12/27/18 23:10 - Laboratory Result Diagrams: 12/27/18 17:43 12/27/18 17:43 Laboratory results interpreted by me: 12/27/18 12/27/18 12/27/18 17:43 17:43 18:20 RDW 22.1 H Potassium 5.3 H BUN 22 H Creatinine 1.42 H Est GFR ( Amer) 46 L Est GFR (MDRD) Non-Af 38 L Glucose 225 H Calcium 10.6 H Alkaline Phosphatase 144 H Total Protein 9.9 H Urine Protein 100 H Urine Glucose (UA) 50 H Urine Ketones TRACE H Discharge - Discharge Clinical Impression: Intractable nausea and vomiting, Fecal impaction Condition: Stable Disposition: ADMITTED INPATIENT Admitting Provider: Evelin (Hospitalist) Unit Admitted: Medical Floor Referrals: TREVON SKAGGS PA-C [Primary Care Provider] - Follow up as needed
[2018-12-27] MEDS ORDERED: MINERAL OIL 30 ML UDCUP PR ONE (19:27)
--- NOTE | 2018-12-27 19:56 | RADIOLOGY REPORT (SQ) ---
EXAM DESCRIPTION: CHEST SINGLE VIEW COMPLETED DATE/TIME: 12/27/2018 7:22 pm REASON FOR STUDY: chest discomfort COMPARISON: 12/13/2018 TECHNIQUE: Single frontal radiographic view of the chest acquired. NUMBER OF VIEWS: One view. LIMITATIONS: None. FINDINGS: LUNGS AND PLEURA: No pneumothorax. No consolidation or pleural effusion. Similar left bas ilar scarring. MEDIASTINUM AND HILAR STRUCTURES: Stable. HEART AND VASCULAR STRUCTURES: Stable. BONES: No acute findings. HARDWARE: CABG. OTHER: No other significant finding. IMPRESSION: NO ACUTE FINDINGS. TECHNICAL DOCUMENTATION: JOB ID: [id number] [id number] 2010 [employer]- All Rights Reserved Reading location - IP/workstation name: [facility]
--- NOTE | 2018-12-27 19:57 | RADIOLOGY REPORT (SQ) ---
EXAM DESCRIPTION: KUB/ABDOMEN (SINGLE VIEW) COMPLETED DATE/TIME: 12/27/2018 7:22 pm REASON FOR STUDY: abdominal pain, constipation COMPARISON: 03/19/2018 NUMBER OF VIEWS: One view. TECHNIQUE: Supine radiographic image of the abdomen acquired. LIMITATIONS: None. FINDINGS: BOWEL GAS PATTERN: Normal bowel gas pattern. No dilated loops. CONSTIPATION: marked CALCIFICATIONS: No suspicious calcifications. SOFT TISSUES: No gross mass or suggestion of organomegaly. HARDWARE: Cholecystectomy clips. BONES: No acute fracture. No worrisome bone lesions. OTHER: No other significant finding. IMPRESSION: NO RADIOGRAPHIC EVIDENCE FOR ACUTE ABDOMINAL DISEASE. Marked constipation. TECHNICAL DOCUMENTATION: JOB ID: [id number] [id number] 2010 [employer]- All Rights Reserved Reading location - IP/workstation name: [facility]
[2018-12-27] MEDS ORDERED: PROMETHAZINE HCL INJ 25 MG/1 ML VIAL IV ONE (21:00)
[2018-12-27] MEDS ORDERED: MORPHINE SULFATE 10 MG/ML INJ IV ONE (21:12)
[2018-12-27] MEDS ORDERED: METOCLOPRAMIDE HCL INJ/PF 10 MG/2 ML SDV IV ONE (23:17)
[2018-12-27] MEDS ORDERED: POLYETHYLENE GLYCOL 3350 POWDER 17 GM/1 PACKET PO ONE (23:18)
[2018-12-28] MEDS ORDERED: CHLORPROMAZINE HCL INJ 25 MG/1 ML AMPULE IV PRN (00:55)
[2018-12-28] MEDS ORDERED: NALBUPHINE HCL INJ 10 MG/1 ML AMPULE IV PRN ×2 (00:57→01:13)
[2018-12-28] MEDS ORDERED: MAG HYDROX/AL HYDROX/SIMETH SUSP 30 ML UDCUP PO PRN (00:57)
[2018-12-28] MEDS ORDERED: HYDRALAZINE HCL INJ/PF 20 MG/1 ML SDV IV PRN (00:57)
[2018-12-28] MEDS ORDERED: MAGNESIUM HYDROXIDE SUSP 30 ML UDCUP PO PRN (00:57)
[2018-12-28] MEDS ORDERED: INSULIN REG, HUMAN 100 UNIT/ML 3 ML VIAL (PYX) SUBCUT PRN (00:57)
[2018-12-28] MEDS ORDERED: ACETAMINOPHEN 325 MG TABLET PO PRN (00:57)
[2018-12-28] MEDS ORDERED: GLUCAGON,HUMAN RECOMB 1 MG INJ IM PRN (01:00)
[2018-12-28] MEDS ORDERED: DEXTROSE 40% GEL 15 GM TUBE PO PRN ×2 (01:00)
[2018-12-28] MEDS ORDERED: DEXTROSE 50%-WATER 25 GM/50 ML DISP.SYRIN IV PRN ×2 (01:00)
[2018-12-28] MEDS ORDERED: ZOLPIDEM TARTRATE 5 MG TABLET PO PRN (01:01)
[2018-12-28] MEDS: NALBUPHINE HCL INJ 10 MG/1 ML AMPULE IV PRN (02:40)
[2018-12-28] MEDS ORDERED: NOREPINEPHRINE BITARTRATE INJ/PF 4 MG/4 ML SDV IV ONE (03:35)
[2018-12-28] MEDS ORDERED: DEXTROSE 5%-WATER 250 ML with NOREPINEPHRINE BITARTRATE 4 MG IV PRN ×2 (03:38)
[2018-12-28] MEDS ORDERED: NALOXONE HCL INJ 2 MG/2 ML DISP.SYRIN ONE ×2 (03:47→05:35)
[2018-12-28] MEDS ORDERED: RINGERS SOLUTION,LACTATED 1,000 ML IV PRN ×3 (03:49→04:38)
[2018-12-28] MEDS ORDERED: NALOXONE HCL INJ 2 MG/2 ML DISP.SYRIN IV ONE ×2 (04:09→05:37)
[2018-12-28] MEDS: HEPARIN SOD (PORCINE) 5,000 UNIT/ML 1 ML VIAL SUBCUT SCH ×3 (05:44→21:10)
--- NOTE | 2018-12-28 06:08 | Progress Note ---
Provider Note Provider Note: Critical care: 12/28/2018 Critical care begin time: 3:31 AM Critical care problem: Hypotension During the patient's course in the emergency room she developed severe hypotension with a systolic pressure of 71. Emergency room staff notified me and I made immediate arrangements for the patient to receive Levophed as an IV infusion titrated to raise her blood pressure greater than 90 systolic and also treated her with IV fluid boluses of lactated Ringer's totaling 2000 mL. Patient was ordered to be transferred to the ICU for further evaluation and treatment. After further evaluation in the ER it was determined that the patient most likely had a hypotensive response to the analgesia and antiemetics she was given a short time before her symptoms began. With her symptoms relieved and the adrenaline release created by her discomfort resolved given her hypovolemic state it would be naturally expected that she developed hypotension. She responded very rapidly to bolus IV fluids and a 2 mg dose of Narcan. Patient was so markedly improved but the plan to place her in the ICU was abandoned and she was re-destined for the medical floor. Critical care end time: 4:47 AM Total critical care time: 18 minutes
--- NOTE | 2018-12-28 06:08 | PDOC H&P ---
History of Present Illness Admission Date/PCP: 12/27/18 23:32 TREVON SKAGGS PA-C Patient complains of: Abdominal pain History of Present Illness: CHARLEY ENRIQUE is a 58 year old female who presented to the emergency room from a local nursing facility with a history of abdominal pain for 3 days. Patient admits progressively worsening intermittent generalized abdominal achy cramping pressure (now moderate) over the last 3 days being accompanied by constipation, nausea, vomiting and anorexia. The abdominal pain lasts for a few minutes when it occurs and then it gradually subsides. This happens several times throughout the day. The pain is generalized throughout the abdomen without radiation. She denies other associated or accompanying signs and symptoms. She denies prior similar episodes. She has not identified any aggravating or ameliorating factors for her abdominal pain. In the emergency room the patient was identified as having a severe fecal impaction and profound constipation on [facility] x-rays. Patient did not respond well to laxatives and and enema given in the emergency room. Dr. Goodrich was consulted by the emergency room physician and has agreed to see the patient in consultation. Patient was subsequently admitted to the hospital for further evaluation and treatment. Past Medical History Cardiac Medical History: Reports: Coronary Artery Disease, Myocardial Infarction - x2, Hyperlipidema, Hypertension Denies: Atrial Fibrillation, Congestive Heart Failure, DVT, Peripheral Vascular Disease, Pulmonary Embolism Pulmonary Medical History: Reports: Bronchitis, Chronic Obstructive Pulmonary Disease (COPD) Denies: Asthma, Pneumonia, Respiratory Failure, Tuberculosis EENT Medical History: Denies: Cataracts, Ears - Hearing aids Neurological Medical History: Denies: Hemorrhagic CVA, Ischemic CVA, Seizures Endocrine Medical History: Reports: Diabetes Mellitus Type 2 Denies: Hyperthyroidism, Hypothyroidism, Obesity Renal/ Medical History: Denies: Chronic Kidney Disease, Nephrolithiasis Malignancy Medical History: Reports: None GI Medical History: Reports: Gastroesophageal Reflux Disease Denies: Cirrhosis, Crohn's Disease, Hepatitis, Ulcerative Colitis Musculoskeltal Medical History: Denies: Arthritis, Gout Skin Medical History: Denies: Eczema, Psoriasis Psychiatric Medical History: Reports: Bipolar Disorder, Depression, Schizoaffective Disorder Denies: Alcohol Dependency, Substance Abuse, Tobacco Dependency Traumatic Medical History: Reports: None Hematology: Denies: Anemia, Bleeding Tendencies Infectious Medical History: Reports: None Past Surgical History Past Surgical History: Reports: Cardiac Catheterization, Cholecystectomy, Coronary Artery Bypass Graft - September 2016, Coronary Stent - x2, Tonsillectomy, Tubal Ligation, Vascular Surgery, Other - PEG tube placement Social History Information Source: Patient Lives with: Residential Smoking Status: Never Smoker Electronic Cigarette use?: No Frequency of Alcohol Use: None Hx Recreational Drug Use: No Drugs: None Hx Prescription Drug Abuse: No - Advance Directive Resuscitation Status: Full Code Surrogate healthcare decision maker:: Mack Enrique Family History Family History: CAD Parental Family History Reviewed: Yes Children Family History Reviewed: No Sibling(s) Family History Reviewed.: Yes Medication/Allergy Home Medications: Acetaminophen [Tylenol 325 mg Tablet] 650 mg PO Q6HP PRN 12/13/18 Aspirin [Aspirin 81 mg Chewable Tablet] 81 mg PO QHS 12/13/18 Atorvastatin Calcium [Lipitor 40 mg Tablet] 40 mg PO QHS 12/13/18 Buspirone HCl [Buspar 5 mg Tablet] 5 mg PO QAM 12/13/18 Docusate Sodium [Colace 100 mg Capsule] 100 mg PO BID 12/13/18 Famotidine [Pepcid 20 mg Tablet] 20 mg PO BID 12/13/18 Levothyroxine Sodium 75 mcg PO Q6AM 12/13/18 Metformin HCl [Glucophage XR 500 mg Tablet] 500 mg PO QAM 12/13/18 Metoclopramide HCl [Reglan] 5 mg PO AC 12/13/18 Metoprolol Succinate [Toprol Xl 25 mg Tab.sr] 25 mg PO QAM 12/13/18 Multivitamin [Multiple Vitamins] 1 tab PO QAM 12/13/18 Nitroglycerin [Nitrostat 0.4 mg (1/150 Gr) Tabs 25/Bottle] 0.4 mg SL Q5MP PRN 12/13/18 Quetiapine Fumarate [Seroquel] 50 mg PO BID 12/13/18 Ranolazine [Ranexa 500 mg Tab.sr] 500 mg PO BID 12/13/18 Valproic Acid [Depakene] 500 mg PO BID 12/13/18 Aspirin [Aspirin 81 mg Chewable Tablet] 81 mg PO DAILY tab.chew 12/19/18 Sulfamethoxazole/Trimethoprim [Septra-Ds 800-160 mg Tablet] 1 tab PO Q12 #14 tablet 12/19/18 Allergies/Adverse Reactions: haloperidol [From Haldol] Allergy (Unknown, Verified 12/13/18 13:26) Review of Systems Constitutional: PRESENT: as per HPI, anorexia. ABSENT: chills, fever(s) Eyes: ABSENT: visual disturbances, other - Eye pain Ears: ABSENT: hearing changes, other - Ear pain Nose, Mouth, and Throat: ABSENT: mouth pain, sore throat Cardiovascular: ABSENT: chest pain, palpitations Respiratory: ABSENT: cough, dyspnea Gastrointestinal: PRESENT: as per HPI, abdominal pain, constipation, nausea, vomiting. ABSENT: diarrhea Genitourinary: ABSENT: dysuria, hematuria Musculoskeletal: ABSENT: back pain, joint swelling, muscle weakness Integumentary: ABSENT: pruritus, rash Neurological: ABSENT: confusion, convulsions, focal weakness, numbness, syncope Psychiatric: ABSENT: anxiety, depression Endocrine: ABSENT: cold intolerance, heat intolerance Hematologic/Lymphatic: ABSENT: easy bleeding, easy bruising Allergic/Immunologic: ABSENT: seasonal rhinorrhea Physical Exam Vital Signs: Temp Pulse Resp BP Pulse Ox 97.3 F 21 H 194/108 H 12/27/18 17:38 12/27/18 23:10 12/27/18 23:10 Intake & Output 12/25/18 12/26/18 12/27/18 23:59 23:59 23:59 Intake Total 1000 Balance 1000 Weight 77.2 kg General appearance: PRESENT: no acute distress, cooperative Head exam: PRESENT: atraumatic, normocephalic Eye exam: PRESENT: conjunctiva pink. ABSENT: conjunctival injection, scleral icterus Ear exam: PRESENT: normal external ear exam. ABSENT: bleeding, drainage Mouth exam: PRESENT: dry mucosa, neck supple Neck exam: ABSENT: thyromegaly, tracheal deviation Respiratory exam: PRESENT: clear to auscultation ailyn, symmetrical, unlabored Cardiovascular exam: PRESENT: RRR. ABSENT: clicks, gallop, rubs Pulses: PRESENT: normal radial pulses, normal dorsalis pedis pul Vascular exam: PRESENT: normal capillary refill. ABSENT: pallor GI/Abdominal exam: PRESENT: normal bowel sounds, soft Rectal exam: PRESENT: deferred Extremities exam: ABSENT: joint swelling, pedal edema Musculoskeletal exam: ABSENT: deformity, dislocation Neurological exam: PRESENT: alert, oriented to person, oriented to place, craig ented to time, oriented to situation, CN II-XII grossly intact. ABSENT: motor sensory deficit Psychiatric exam: PRESENT: appropriate affect, normal mood Skin exam: PRESENT: dry, intact, warm. ABSENT: jaundice, rash, urticaria Results Laboratory Results: 12/27/18 17:43 12/27/18 17:43 12/27/18 12/27/18 12/27/18 17:43 17:43 18:20 WBC 8.1 RBC 4.51 Hgb 13.0 Hct 39.2 MCV 87 MCH 28.9 MCHC 33.2 RDW 22.1 H Plt Count 287 Seg Neutrophils % 67.8 Sodium 139.4 Potassium 5.3 H Chloride 100 Carbon Dioxide 22 Anion Gap 17 BUN 22 H Creatinine 1.42 H Est GFR ( Amer) 46 L Glucose 225 H Calcium 10.6 H Total Bilirubin 0.8 AST 30 Alkaline Phosphatase 144 H Total Protein 9.9 H Albumin 5.0 Lipase 183.3 Urine Color YELLOW Urine Appearance CLEAR Urine pH 7.0 Ur Specific [place] 1.012 Urine Protein 100 H Urine Glucose (UA) 50 H Urine Ketones TRACE H Urine Blood NEGATIVE Urine Nitrite NEGATIVE Ur Leukocyte Esterase NEGATIVE Urine WBC (Auto) 0 Urine RBC (Auto) 2 Impressions: Chest X-Ray 12/27/18 18:37 IMPRESSION: NO ACUTE FINDINGS. KUB X-Ray 12/27/18 18:37 IMPRESSION: NO RADIOGRAPHIC EVIDENCE FOR ACUTE ABDOMINAL DISEASE. Marked constipation. Assessment and Plan - Diagnosis (1) Constipation Qualifiers: Constipation type: unspecified constipation type Qualified Code(s): K59.00 - Constipation, unspecified Is this a current diagnosis for this admission?: Yes Plan: Patient will be treated with stool softeners and laxatives. She will also receive soapsuds enemas. A consultation with Dr. Goodrich will provide additional therapeutic modalities to the treatment of this severe problem. Patient's abdominal pain will be treated with Nubain 5 to 10 mg IV every 3 hours on an as needed basis using a sliding scale for pain. Daily CBCs, magnesium levels and metabolic profiles will be used to provide ongoing evaluation for the patient while she is receiving treatment for her constipation. (2) Fecal impaction Is this a current diagnosis for this admission?: Yes Plan: Patient's fecal impaction will be eliminated manually if possible but may require flexible sigmoidoscopic evacuation by Dr. Goodrich. (3) Intractable nausea and vomiting Is this a current diagnosis for this admission?: Yes Plan: Patient's nausea and vomiting will be treated with chlorpromazine 25 mg IV every 8 hours as needed for control of severe nausea and vomiting. (4) Diabetes mellitus type 2 in nonobese Is this a current diagnosis for this admission?: Yes Plan: Hemoglobin A1c will be obtained to evaluate the patient's current diabetic therapeutic regiment. She will be continued on her current regiment as well as a diabetic diet pending results. Before meals and at bedtime Accu-Cheks will be obtained and sliding scale insulin will be used to treat hyperglycemia, with a hypoglycemic protocol in place. (5) Hypothyroidism Qualifiers: Hypothyroidism type: acquired Qualified Code(s): E03.9 - Hypothyroidism, unspecified Is this a current diagnosis for this admission?: Yes Plan: A TSH has been obtained and is normal. Patient will therefore be continued on her usual thyroid replacement hormone medication. (6) CAD (coronary artery disease) Qualifiers: Coronary Disease-Associated Artery/Lesion type: [place] artery [place] vs. transplanted heart: [place] heart Associated angina: without angina Qualified Code(s): I25.10 - Atherosclerotic heart disease of [place] coronary artery without angina pectoris Is this a current diagnosis for this admission?: Yes Plan: Patient be continued on her usual cardiac medications throughout her hospital course. (7) HTN (hypertension) Qualifiers: Hypertension type: essential hypertension Qualified Code(s): I10 - Essential (primary) hypertension Is this a current diagnosis for this admission?: Yes Plan: Patient be continued on her usual antihypertensive medications throughout her hospital course. Blood pressure will be checked on a frequent basis with routine vital signs. (8) Hyperlipidemia Qualifiers: Hyperlipidemia type: unspecified Qualified Code(s): E78.5 - Hyperlipidemia, unspecified Is this a current diagnosis for this admission?: Yes Plan: Lipid profile will be obtained in the morning to the efficacy of assess current therapy, and patient will be continued on her current hyperlipidemia therapy pending results. - Time Time Spent with patient: 25-34 minutes Medications reviewed and adjusted accordingly: Yes Anticipated discharge: Home - Inpatient Certification Based on my medical assessment, after consideration of the patient's comorbi dities, presenting symptoms, or acuity I expect that the services needed warrant INPATIENT care.: Yes I certify that my determination is in accordance with my understanding of Medicare's requirements for reasonable and necessary INPATIENT services [42 CFR 412.3e].: Yes Medical Necessity: Significant Comorbidiites Make Outpatient Treatment Too Risky, Need Close Monitoring Due to Risk of Patient Decompensation, Need For IV Fluids, Need for Surgery, Risk of Complication if Not Cared For in Hospital, Risk of Diagnosis Which Will Require Inpatient Eval/Care/Monitoring
--- NOTE | 2018-12-28 07:38 | EKG REPORT ---
SEVERITY:- ABNORMAL ECG - SINUS RHYTHM BORDERLINE IVCD WITH LAD INFERIOR INFARCT, AGE INDETERMINATE ANTERIOR INFARCT, OLD : Confirmed by: Agustin Crawford MD 28-Dec-2018 07:38:36
--- NOTE | 2018-12-28 07:42 | PDOC CONSULTATION ---
Consultation Consult Date: 12/28/18 Provider Consulted: ERNIE BURNETT Consult reason:: constipation History of Present Illness Admission Date/PCP: 12/27/18 23:32 TREVON SKAGGS PA-C History of Present Illness: CHARLEY SHERMAN is a 58 year old female patient admitted from ED presented with constipation , not having BM's for over 1 week does take chronic pain meds patient had been seen in the past to have colonoscopy done but never kept appt patient has x ray consistent with constipation patient should be given bowel prep in anticipation of colonoscopy to exclude any obstructive lesion in the colon and should undergo evaluation prior to her discharge Past Medical History Cardiac Medical History: Reports: Coronary Artery Disease, Myocardial Infarction - x2, Hyperlipidema, Hypertension Denies: Atrial Fibrillation, Congestive Heart Failure, DVT, Peripheral Vascular Disease, Pulmonary Embolism Pulmonary Medical History: Reports: Bronchitis, Chronic Obstructive Pulmonary Disease (COPD) Denies: Asthma, Pneumonia, Respiratory Failure, Tuberculosis EENT Medical History: Denies: Cataracts, Ears - Hearing aids Neurological Medical History: Denies: Hemorrhagic CVA, Ischemic CVA, Seizures Endocrine Medical History: Reports: Diabetes Mellitus Type 2 Denies: Hyperthyroidism, Hypothyroidism, Obesity Renal/ Medical History: Denies: Chronic Kidney Disease, Nephrolithiasis Malignancy Medical History: Reports: None GI Medical History: Reports: Gastroesophageal Reflux Disease Denies: Cirrhosis, Crohn's Disease, Hepatitis, Ulcerative Colitis Musculoskeltal Medical History: Denies: Arthritis, Gout Skin Medical History: Denies: Eczema, Psoriasis Psychiatric Medical History: Reports: Bipolar Disorder, Depression, Schizoaffective Disorder Denies: Alcohol Dependency, Substance Abuse, Tobacco Dependency Traumatic Medical History: Reports: None Hematology: Denies: Anemia, Bleeding Tendencies Infectious Medical History: Reports: None Past Surgical History Past Surgical History: Reports: Cardiac Catheterization, Cholecystectomy, Coronary Artery Bypass Graft - September 2016, Coronary Stent - x2, Tonsillectomy, Tubal Ligation, Vascular Surgery, Other - PEG tube placement Social History Lives with: Prison Smoking Status: Never Smoker Electronic Cigarette use?: No Frequency of Alcohol Use: None Hx Recreational Drug Use: No Drugs: None Hx Prescription Drug Abuse: No - Advance Directive Resuscitation Status: Full Code Family History Family History: CAD Parental Family History Reviewed: Yes Children Family History Reviewed: Unknown Sibling(s) Family History Reviewed.: Unknown Medication/Allergy Home Medications: Acetaminophen [Tylenol 325 mg Tablet] 650 mg PO Q6HP PRN 12/13/18 Aspirin [Aspirin 81 mg Chewable Tablet] 81 mg PO QHS 12/13/18 Atorvastatin Calcium [Lipitor 40 mg Tablet] 40 mg PO QHS 12/13/18 Buspirone HCl [Buspar 5 mg Tablet] 5 mg PO QAM 12/13/18 Docusate Sodium [Colace 100 mg Capsule] 100 mg PO BID 12/13/18 Famotidine [Pepcid 20 mg Tablet] 20 mg PO BID 12/13/18 Levothyroxine Sodium 75 mcg PO Q6AM 12/13/18 Metformin HCl [Glucophage XR 500 mg Tablet] 500 mg PO QAM 12/13/18 Metoclopramide HCl [Reglan] 5 mg PO AC 12/13/18 Metoprolol Succinate [Toprol Xl 25 mg Tab.sr] 25 mg PO QAM 12/13/18 Multivitamin [Multiple Vitamins] 1 tab PO QAM 12/13/18 Nitroglycerin [Nitrostat 0.4 mg (1/150 Gr) Tabs 25/Bottle] 0.4 mg SL Q5MP PRN 12/13/18 Quetiapine Fumarate [Seroquel] 50 mg PO BID 12/13/18 Ranolazine [Ranexa 500 mg Tab.sr] 500 mg PO BID 12/13/18 Valproic Acid [Depakene] 500 mg PO BID 12/13/18 Aspirin [Aspirin 81 mg Chewable Tablet] 81 mg PO DAILY tab.chew 12/19/18 Sulfamethoxazole/Trimethoprim [Septra-Ds 800-160 mg Tablet] 1 tab PO Q12 #14 tablet 12/19/18 Allergies/Adverse Reactions: haloperidol [From Haldol] Allergy (Unknown, Verified 12/13/18 13:26) Review of Systems Constitutional: ABSENT: fever(s), headache(s), night sweats Eyes: ABSENT: visual disturbances Ears: ABSENT: hearing changes Nose, Mouth, and Throat: ABSENT: mouth pain Cardiovascular: ABSENT: orthropnea Respiratory: ABSENT: dyspnea, hemoptysis Gastrointestinal: ABSENT: diarrhea, hematemesis, nausea Genitourinary: ABSENT: dysuria, hematuria Musculoskeletal: ABSENT: deformity Integumentary: ABSENT: pruritus Neurological: ABSENT: syncope, tingling, tremor(s), vertigo Endocrine: ABSENT: polydipsia, polyphagia, polyuria Hematologic/Lymphatic: ABSENT: easy bruising Physical Exam Vital Signs: Temp Pulse Resp BP Pulse Ox 97.3 F 16 141/85 H 12/27/18 17:38 12/28/18 05:45 12/28/18 05:45 Intake & Output 12/27/18 12/28/18 12/29/18 06:59 06:59 06:59 Intake Total 3000 Balance 3000 Weight 77.2 kg General appearance: PRESENT: no acute distress Head exam: PRESENT: atraumatic, normocephalic Eye exam: ABSENT: EOMI, PERRLA, scleral icterus Mouth exam: PRESENT: moist. ABSENT: neck supple Neck exam: ABSENT: meningismus, tenderness, thyromegaly Respiratory exam: ABSENT: chest wall tenderness, wheezes Cardiovascular exam: PRESENT: RRR, +S1, +S2 GI/Abdominal exam: PRESENT: firm. ABSENT: Alonso's sign, rebound Extremities exam: ABSENT: joint swelling Musculoskeletal exam: PRESENT: full ROM Neurological exam: PRESENT: alert, awake, CN II-XII grossly intact Skin exam: PRESENT: normal color. ABSENT: mottled, urticaria, vesicles Results Laboratory Results: 12/27/18 17:43 12/27/18 17:43 12/27/18 12/27/18 12/27/18 17:43 17:43 18:20 WBC 8.1 RBC 4.51 Hgb 13.0 Hct 39.2 MCV 87 MCH 28.9 MCHC 33.2 RDW 22.1 H Plt Count 287 Seg Neutrophils % 67.8 Sodium 139.4 Potassium 5.3 H Chloride 100 Carbon Dioxide 22 Anion Gap 17 BUN 22 H Creatinine 1.42 H Est GFR ( Amer) 46 L Glucose 225 H Calcium 10.6 H Total Bilirubin 0.8 AST 30 Alkaline Phosphatase 144 H Total Protein 9.9 H Albumin 5.0 Lipase 183.3 Urine Color YELLOW Urine Appearance CLEAR Urine pH 7.0 Ur Specific [place] 1.012 Urine Protein 100 H Urine Glucose (UA) 50 H Urine Ketones TRACE H Urine Blood NEGATIVE Urine Nitrite NEGATIVE Ur Leukocyte Esterase NEGATIVE Urine WBC (Auto) 0 Urine RBC (Auto) 2 Impressions: Chest X-Ray 12/27/18 18:37 IMPRESSION: NO ACUTE FINDINGS. KUB X-Ray 12/27/18 18:37 IMPRESSION: NO RADIOGRAPHIC EVIDENCE FOR ACUTE ABDOMINAL DISEASE. Marked constipation. Assessment & Plan - Diagnosis (1) Constipation Qualifiers: Constipation type: unspecified constipation type Qualified Code(s): K59.00 - Constipation, unspecified Is this a current diagnosis for this admission?: Yes Plan: would recommend Go lytely solution consider non traditional methods of eliciting diarrhea use of erythromycin or Reglan in addition will need colonoscopy prior to discharge anticipate prepping over today tentative schedule on - Time Time Spent: 50 to 70 Minutes
[2018-12-28] MEDS ORDERED: PEG 3350/NA SULF,BICARB,CL/KCL 4000 ML PO ONE ×2 (09:00→20:00)
[2018-12-28] MEDS ORDERED: BISACODYL 10 MG SUPP.RECT PR ONE (09:37)
--- NOTE | 2018-12-28 09:40 | PDOC PROGRESS REPORT ---
Subjective Progress Note for:: 12/28/18 Subjective:: This is a very ill-appearing 58-year-old female resting in the bed. During this encounter she vomited dark-colored liquid requiring placement of a nasogastric tube. Gastroenterology will be seeing the patient as well. Unfortunately she has not had a bowel movement in 9 days and presents with decreased blood pressure and tachycardia. Reason For Visit: SEVERE CONSTIPATION Nausea, vomiting and abdominal pain Physical Exam Vital Signs: Temp Pulse Resp BP Pulse Ox 97.3 F 16 160/90 H 12/27/18 17:38 12/28/18 08:16 12/28/18 08:01 Intake & Output 12/27/18 12/28/18 12/29/18 06:59 06:59 06:59 Intake Total 3000 Output Total 50 Balance 3000 -50 Weight 77.2 kg General appearance: PRESENT: cooperative, mild distress - Mild to moderate distress, well-developed - But ill-appearing 58-year-old female resting in bed Head exam: PRESENT: atraumatic, normocephalic Mouth exam: PRESENT: moist, tongue midline Respiratory exam: PRESENT: clear to auscultation ailyn, symmetrical, unlabored. ABSENT: accessory muscle use, rales, rhonchi, tachypnea, wheezes Cardiovascular exam: PRESENT: RRR, +S1, +S2. ABSENT: diastolic murmur, systolic murmur GI/Abdominal exam: PRESENT: distended, hypoactive bowel sounds, soft, tenderness - Diffuse nonspecific tenderness. ABSENT: guarding Rectal exam: PRESENT: deferred Neurological exam: PRESENT: alert, awake, oriented to person, oriented to place, oriented to situation Psychiatric exam: PRESENT: appropriate affect - Affect reflects her current clinical state. ABSENT: agitated, anxious Focused psych exam: ABSENT: delusional, restlessness Results Laboratory Results: 12/27/18 17:43 12/27/18 17:43 12/27/18 12/27/18 12/27/18 17:43 17:43 18:20 WBC 8.1 RBC 4.51 Hgb 13.0 Hct 39.2 MCV 87 MCH 28.9 MCHC 33.2 RDW 22.1 H Plt Count 287 Seg Neutrophils % 67.8 Sodium 139.4 Potassium 5.3 H Chloride 100 Carbon Dioxide 22 Anion Gap 17 BUN 22 H Creatinine 1.42 H Est GFR ( Amer) 46 L Glucose 225 H Calcium 10.6 H Total Bilirubin 0.8 AST 30 Alkaline Phosphatase 144 H Total Protein 9.9 H Albumin 5.0 Lipase 183.3 Urine Color YELLOW Urine Appearance CLEAR Urine pH 7.0 Ur Specific [place] 1.012 Urine Protein 100 H Urine Glucose (UA) 50 H Urine Ketones TRACE H Urine Blood NEGATIVE Urine Nitrite NEGATIVE Ur Leukocyte Esterase NEGATIVE Urine WBC (Auto) 0 Urine RBC (Auto) 2 Impressions: Chest X-Ray 12/27/18 18:37 IMPRESSION: NO ACUTE FINDINGS. KUB X-Ray 12/27/18 18:37 IMPRESSION: NO RADIOGRAPHIC EVIDENCE FOR ACUTE ABDOMINAL DISEASE. Marked constipation. Assessment and Plan - Diagnosis (1) Constipation Qualifiers: Constipation type: slow transit constipation Qualified Code(s): K59.01 - Slow transit constipation Is this a current diagnosis for this admission?: Yes Plan: 12/28/2018-this is likely due to slow transit. The patient does not take large amounts of narcotics for pain. A nasogastric tube was inserted today because she began to vomit dark-colored liquid. We are going to try and utilize GoLYTELY as well as metoclopramide and bisacodyl to help clear the patient's fecal impaction. There will be no suction on the nasogastric tube if she is tolerating the GoLYTELY. If nausea and vomiting develops again then we will need to resume suction at least intermittently. Soapsuds enemas have also been ordered. Dr. Celeste is seeing the patient as well. (2) Fecal impaction Is this a current diagnosis for this admission?: Yes Plan: 12/28/2018-please see plan outlined above (3) Intractable nausea and vomiting Is this a current diagnosis for this admission?: Yes Plan: 12/28/2018-metoclopramide will be used for the emesis as well as to promote bowel motility. Gastroccult did test positive for blood in the emesis. With utilization of the nasogastric tube and decompression hopefully the nausea and vomiting will subside. (4) Gastritis Qualifiers: Chronicity: unspecified Gastritis bleeding: with bleeding Is this a current diagnosis for this admission?: Yes Plan: 12/28/2018-the emesis was Gastroccult positive. There is no hilary blood/hematemesis and this is likely gastritis. The patient is now on intravenous pantoprazole. (5) Diabetes mellitus type 2 in nonobese Is this a current diagnosis for this admission?: Yes Plan: 12/28/2018-diabetes medications will be on hold while the patient is n.p.o. She will get Accu-Cheks every 6 hours and there is sliding scale in the event of hyperglycemia. (6) Hypothyroidism Qualifiers: Hypothyroidism type: acquired Qualified Code(s): E03.9 - Hypothyroidism, unspecified Is this a current diagnosis for this admission?: Yes Plan: 12/28/2018-continue levothyroxine. If she cannot take it by mouth after several days we will start intravenous therapy. (7) Chronic kidney disease (CKD), stage III (moderate) Is this a current diagnosis for this admission?: Yes Plan: 12/28/2018-the patient will be getting fluids to compensate for the emesis. We will monitor intake and output. We will monitor the renal function closely. Her current GFR is approximately around her baseline as evidenced from blood work drawn from previous admissions. (8) CAD (coronary artery disease) Qualifiers: Coronary Disease-Associated Artery/Lesion type: [place] artery [place] vs. transplanted heart: [place] heart Associated angina: without angina Qualified Code(s): I25.10 - Atherosclerotic heart disease of [place] coronary artery without angina pectoris Is this a current diagnosis for this admission?: Yes Plan: 12/28/2018-there is no evidence of acute coronary syndrome. I did asked the nurses to try and administer the patient's cardiac medications during windows of no emesis. If the [employer] works the medicines may have rapid transit. Hopefully this will resolve by tomorrow and the patient will not miss many medications. If there are acute episodes other medication regimens can be in stituted. - Time Time Spent with patient: 25-34 minutes Medications reviewed and adjusted accordingly: Yes Anticipated discharge: SNF - Return to the [facility] facility.
[2018-12-28] MEDS ORDERED: FAMOTIDINE 20 MG TABLET PO SCH (10:00)
[2018-12-28] MEDS: DOCUSATE SODIUM 100 MG CAPSULE PO SCH ×2 (10:51→17:12)
[2018-12-28] MEDS: METOCLOPRAMIDE HCL INJ/PF 10 MG/2 ML SDV IV SCH ×2 (13:49→17:12)
[2018-12-28] MEDS: RINGERS SOLUTION,LACTATED 1,000 ML IV PRN ×2 (13:52→21:44)
[2018-12-28] MEDS ORDERED: PANTOPRAZOLE SODIUM 40 MG VIAL IV ONE (16:30)
[2018-12-28] MEDS: RANOLAZINE 500 MG TAB.SR.12H PO SCH (17:12)
[2018-12-28] MEDS ORDERED: BISACODYL 10 MG SUPP.RECT PR PRN (21:00)
[2018-12-28] MEDS: QUETIAPINE FUMARATE 25 MG TABLET PO SCH (21:34)
[2018-12-28] MEDS: ATORVASTATIN CALCIUM 40 MG TABLET PO SCH (21:35)
[2018-12-28] MEDS: DIVALPROEX SODIUM 250 MG TABLET.DR PO SCH (21:35)
[2018-12-28] MEDS ORDERED: (PENDING PHARMACY ID) (Quetiapine Fumarate [Seroquel] 50 MG) PO SCH (22:00)
[2018-12-28] MEDS ORDERED: DIVALPROEX SODIUM 500 MG TAB.SR.24H PO SCH (22:00)
[2018-12-28] MEDS ORDERED: (PENDING PHARMACY ID) (Divalproex Sodium [Depakote] 500 MG) PO SCH (22:00)
[2018-12-29] MEDS: HEPARIN SOD (PORCINE) 5,000 UNIT/ML 1 ML VIAL SUBCUT SCH ×3 (05:21→22:19)
[2018-12-29] MEDS: METOCLOPRAMIDE HCL INJ/PF 10 MG/2 ML SDV IV SCH ×4 (05:21→18:25)
[2018-12-29 06:24] LABS: ABSOLUTE BASOPHILS # (AUTO) 0.1 10^3/uL (0.0-0.2); ABSOLUTE LYMPHOCYTES (AUTO) 2.4 10^3/uL (0.5-4.7); ABSOLUTE MONOCYTES (AUTO) 0.7 10^3/uL (0.1-1.4); ABSOLUTE NEUT (AUTO) 6.9 10^3/uL (1.7-8.2); BASOPHILS % (AUTO) 0.6 % (0-2); EOSINOPHILS % (AUTO) 0.2 % (0-6); HEMATOCRIT 36.5 % (36.0-47.0); HEMOGLOBIN 12.4 g/dL (12.0-15.5); MEAN CORPUSCULAR HEMOGLOBIN 29.3 pg (27.0-33.4); MEAN CORPUSCULAR HGB CONC 33.9 g/dL (32.0-36.0); MEAN CORPUSCULAR VOLUME 86 fl (80-97); MONOCYTES % (AUTO) 6.7 % (3-13); PLATELET COUNT 206 10^3/uL (150-450); RED BLOOD COUNT 4.23 10^6/uL (3.72-5.28); RED CELL DISTRIBUTION WIDTH 22.4 % (11.5-14.0); SEGMENTED NEUTROPHILS % (AUTO) 68.5 % (42-78); TOTAL CELLS COUNTED % (AUTO) 100 %; WHITE BLOOD COUNT 10.1 10^3/uL (4.0-10.5)
[2018-12-29 06:42] LABS: ANION GAP 12 (5-19); BLOOD UREA NITROGEN 20 mg/dL (7-20); CALCIUM 9.5 mg/dL (8.4-10.2); CARBON DIOXIDE 26 mmol/L (22-30); CHLORIDE 101 mmol/L (98-107); CHOLESTEROL 151.18 mg/dL (0-200); GLUCOSE 173 mg/dL (75-110); POTASSIUM 4.8 mmol/L (3.6-5.0); TRIGLYCERIDES 83 mg/dL (<150)
[2018-12-29 06:53] LABS: DIRECT LDL 84 mg/dL (<100)
[2018-12-29] MEDS ORDERED: (PENDING PHARMACY ID) (Buspirone Hcl [Buspar 5 Mg Tablet] 5 MG) PO SCH (08:00)
[2018-12-29] MEDS: BUSPIRONE HCL 10 MG TABLET PO SCH (08:14)
[2018-12-29] MEDS: METOPROLOL SUCCINATE 25 MG TAB.SR.24H PO SCH ×2 (08:14→10:33)
[2018-12-29] MEDS ORDERED: PANTOPRAZOLE SODIUM 40 MG VIAL IV SCH (10:00)
[2018-12-29] MEDS: QUETIAPINE FUMARATE 25 MG TABLET PO SCH ×2 (10:32→22:19)
[2018-12-29] MEDS: RANOLAZINE 500 MG TAB.SR.12H PO SCH ×2 (10:33→18:25)
[2018-12-29] MEDS: DOCUSATE SODIUM 100 MG CAPSULE PO SCH ×2 (10:34→17:44)
[2018-12-29] MEDS: DIVALPROEX SODIUM 250 MG TABLET.DR PO SCH ×2 (10:35→22:19)
[2018-12-29] MEDS ORDERED: MAGNESIUM CITRATE 296 ML BOTTLE PO ONE (11:00)
[2018-12-29] MEDS ORDERED: INSULIN REG, HUMAN 100 UNIT/ML 3 ML VIAL (PYX) SUBCUT SCH (11:30)
[2018-12-29] MEDS: RINGERS SOLUTION,LACTATED 1,000 ML IV PRN ×2 (12:16→22:27)
--- NOTE | 2018-12-29 13:30 | PDOC PROGRESS REPORT ---
Subjective Progress Note for:: 12/29/18 Subjective:: patient is not clear and cannot have colonoscopy done today patient had singular formed bowel movement yesterday after a Go- lytely prep tried to give her Mg Citrate but could not tolerate she will not be able to proceed with a colonoscopy until she is clear if she has an NGT , I would recommend more prep until effluent is clear I will defer her procedure until tomorrow unfortunately if still not clear , then we are looking to try early next week Reason For Visit: SEVERE CONSTIPATION Physical Exam Vital Signs: Temp Pulse Resp BP Pulse Ox 97.8 F 110 H 18 182/108 H 100 12/29/18 08:00 12/29/18 08:00 12/29/18 08:00 12/29/18 08:00 12/29/18 08:00 Intake & Output 12/28/18 12/29/18 12/30/18 06:59 06:59 06:59 Intake Total 3000 1000 1000 Output Total 50 Balance 3000 950 1000 Weight 77.2 kg 79.7 kg General appearance: PRESENT: cooperative, morbidly obese Head exam: PRESENT: atraumatic, normocephalic Eye exam: PRESENT: EOMI, PERRLA. ABSENT: nystagmus, scleral icterus Mouth exam: PRESENT: moist Throat exam: ABSENT: tonsillar exudate, tonsillogmegaly Neck exam: ABSENT: meningismus, tenderness, thyromegaly Respiratory exam: PRESENT: symmetrical. ABSENT: wheezes Cardiovascular exam: PRESENT: RRR, +S1, +S2 GI/Abdominal exam: PRESENT: distended, soft. ABSENT: rebound Extremities exam: ABSENT: joint swelling Musculoskeletal exam: PRESENT: full ROM Neurological exam: PRESENT: oriented to time, oriented to situation, CN II-XII grossly intact Focused psych exam: ABSENT: restlessness Skin exam: PRESENT: normal color. ABSENT: mottled, pallor, urticaria, vesicles Results Laboratory Results: 12/29/18 06:11 12/29/18 05:49 12/29/18 12/29/18 05:49 06:11 WBC 10.1 RBC 4.23 Hgb 12.4 Hct 36.5 MCV 86 MCH 29.3 MCHC 33.9 RDW 22.4 H Plt Count 206 Seg Neutrophils % 68.5 Sodium 139.2 Potassium 4.8 Chloride 101 Carbon Dioxide 26 Anion Gap 12 BUN 20 Creatinine 1.16 Est GFR ( Amer) 58 L Glucose 173 H Calcium 9.5 Magnesium 1.7 Triglycerides 83 Cholesterol 151.18 LDL Cholesterol Direct 84 VLDL Cholesterol 17.0 HDL Cholesterol 48 Impressions: Chest X-Ray 12/27/18 18:37 IMPRESSION: NO ACUTE FINDINGS. KUB X-Ray 12/27/18 18:37 IMPRESSION: NO RADIOGRAPHIC EVIDENCE FOR ACUTE ABDOMINAL DISEASE. Marked constipation. Assessment & Plan - Diagnosis (1) Constipation Qualifiers: Constipation type: slow transit constipation Qualified Code(s): K59.01 - Slow transit constipation Is this a current diagnosis for this admission?: Yes Plan: more prep needed and will not be able to proceed until prep is completed will defer procedure till tomorrow if clear - Time Time Spent with patient: 15-24 minutes
--- NOTE | 2018-12-29 15:14 | PDOC PROGRESS REPORT ---
Subjective Progress Note for:: 12/29/18 Subjective:: The patient is just getting cleaned from another large bowel movement. She seems to be tolerating magnesium citrate administered through the NG tube. The nurse informed her that she passed a very hard piece of feces. Since then she has been having soft to liquid stool. She still feels quite weak but she is able to walk to the bathroom. The concern is that she walks by herself. Reason For Visit: SEVERE CONSTIPATION Physical Exam Vital Signs: Temp Pulse Resp BP Pulse Ox 97.8 F 110 H 18 182/108 H 100 12/29/18 08:00 12/29/18 08:00 12/29/18 08:00 12/29/18 08:00 12/29/18 08:00 Intake & Output 12/28/18 12/29/18 12/30/18 06:59 06:59 06:59 Intake Total 3000 1000 1000 Output Total 50 Balance 3000 950 1000 Weight 77.2 kg 79.7 kg General appearance: PRESENT: no acute distress, cooperative, well-developed Head exam: PRESENT: atraumatic, normocephalic Eye exam: PRESENT: conjunctiva pink. ABSENT: scleral icterus Ear exam: PRESENT: normal external ear exam. ABSENT: bleeding, drainage Respiratory exam: PRESENT: clear to auscultation ailyn, symmetrical, unlabored. ABSENT: rales, rhonchi, tachypnea, wheezes Cardiovascular exam: PRESENT: RRR, +S1, +S2 GI/Abdominal exam: PRESENT: hyperactive bowel sounds - With bowel prep, soft, tenderness - Slightly tender. ABSENT: distended, guarding Rectal exam: PRESENT: deferred, other - Passing copious liquid stool Extremities exam: ABSENT: pedal edema, tenderness Musculoskeletal exam: PRESENT: normal inspection. ABSENT: deformity Neurological exam: PRESENT: alert, awake, oriented to person, oriented to place, oriented to situation Psychiatric exam: PRESENT: anxious - Seems slightly anxious, flat affect. ABSENT: agitated Focused psych exam: ABSENT: delusional, restlessness Results Laboratory Results: 12/29/18 06:11 12/29/18 05:49 12/29/18 12/29/18 05:49 06:11 WBC 10.1 RBC 4.23 Hgb 12.4 Hct 36.5 MCV 86 MCH 29.3 MCHC 33.9 RDW 22.4 H Plt Count 206 Seg Neutrophils % 68.5 Sodium 139.2 Potassium 4.8 Chloride 101 Carbon Dioxide 26 Anion Gap 12 BUN 20 Creatinine 1.16 Est GFR ( Amer) 58 L Glucose 173 H Calcium 9.5 Magnesium 1.7 Triglycerides 83 Cholesterol 151.18 LDL Cholesterol Direct 84 VLDL Cholesterol 17.0 HDL Cholesterol 48 Impressions: Chest X-Ray 12/27/18 18:37 IMPRESSION: NO ACUTE FINDINGS. KUB X-Ray 12/27/18 18:37 IMPRESSION: NO RADIOGRAPHIC EVIDENCE FOR ACUTE ABDOMINAL DISEASE. Marked constipation. Assessment and Plan - Diagnosis (1) Constipation Qualifiers: Constipation type: slow transit constipation Qualified Code(s): K59.01 - Slow transit constipation Is this a current diagnosis for this admission?: Yes Plan: 12/28/2018-this is likely due to slow transit. The patient does not take large amounts of narcotics for pain. A nasogastric tube was inserted today because she began to vomit dark-colored liquid. We are going to try and utilize GoLYTELY as well as metoclopramide and bisacodyl to help clear the patient's fecal impaction. There will be no suction on the nasogastric tube if she is tolerating the GoLYTELY. If nausea and vomiting develops again then we will need to resume suction at least intermittently. Soapsuds enemas have also been ordered. Dr. Celeste is seeing the patient as well. 12/29/2018-we finally have significant movement. I expect with the multiple bowel movements it will be easier and easier for the patient to tolerate oral intake in order to complete her bowel prep. Dr. Tello plans endoscopy tomorrow if her bowel prep appears to be complete. (2) Fecal impaction Is this a current diagnosis for this admission?: Yes Plan: 12/28/2018-please see plan outlined above 12/29/2018-resolved (3) Intractable nausea and vomiting Is this a current diagnosis for this admission?: Yes Plan: 12/28/2018-metoclopramide will be used for the emesis as well as to promote bowel motility. Gastroccult did test positive for blood in the emesis. With utilization of the nasogastric tube and decompression hopefully the nausea and vomiting will subside. 12/29/2018- now that the bowels are moving the nausea and vomiting is improving. We will maintain the nasogastric tube for now. (4) Gastritis Qualifiers: Chronicity: unspecified Gastritis bleeding: with bleeding Is this a current diagnosis for this admission?: Yes Plan: 12/28/2018-the emesis was Gastroccult positive. There is no hilary blood/hematemesis and this is likely gastritis. The patient is now on intravenous pantoprazole. 12/29/2018-the patient is still having some epigastric discomfort. I will increase the Protonix to twice daily. Possibly Dr. Celeste can examine the stomach as well as the colon. Consider Carafate after endoscopies. (5) Diabetes mellitus type 2 in nonobese Is this a current diagnosis for this admission?: Yes Plan: 12/28/2018-diabetes medications will be on hold while the patient is n.p.o. She will get Accu-Cheks every 6 hours and there is sliding scale in the event of hyperglycemia. [id number]/[id number] are still slightly high. Further refinements in her regimen can be made when she is on an oral diet. (6) Hypothyroidism Qualifiers: Hypothyroidism type: acquired Qualified Code(s): E03.9 - Hypothyroidism, unspecified Is this a current diagnosis for this admission?: Yes Plan: 12/28/2018-continue levothyroxine. If she cannot take it by mouth after several days we will start intravenous therapy. 12/29/2018-levothyroxine on hold. I expect to resume medications tomorrow. If only 2 to 3 days or missed I do not feel that IV levothyroxine is required. (7) Chronic kidney disease (CKD), stage III (moderate) Is this a current diagnosis for this admission?: Yes Plan: 12/28/2018-the patient will be getting fluids to compensate for the emesis. We will monitor intake and output. We will monitor the renal function closely. Her current GFR is approximately around her baseline as evidenced from blood work drawn from previous admissions. 12/29/2018-serum creatinine is back in the normal range. GFR is now greater than 50. (8) CAD (coronary artery disease) Qualifiers: Coronary Disease-Associated Artery/Lesion type: [place] artery [place] vs. transplanted heart: [place] heart Associated angina: without angina Qualified Code(s): I25.10 - Atherosclerotic heart disease of [place] coronary artery without angina pectoris Is this a current diagnosis for this admission?: Yes Plan: 12/28/2018-there is no evidence of acute coronary syndrome. I did asked the nurses to try and administer the patient's cardiac medications during windows of no emesis. If the [employer] works the medicines may have rapid transit. Hopefully this will resolve by tomorrow and the patient will not miss many medications. If there are acute episodes other medication regimens can be instituted. 12/29/2018-currently asymptomatic. Continue to monitor. - Time Time Spent with patient: 15-24 minutes Medications reviewed and adjusted accordingly: Yes Anticipated discharge: SNF - [facility].
[2018-12-29] MEDS: ATORVASTATIN CALCIUM 40 MG TABLET PO SCH (22:19)
[2018-12-29] MEDS: PANTOPRAZOLE SODIUM 40 MG VIAL IV SCH (22:19)
[2018-12-30] MEDS: METOCLOPRAMIDE HCL INJ/PF 10 MG/2 ML SDV IV SCH ×4 (00:10→17:32)
[2018-12-30] MEDS: HEPARIN SOD (PORCINE) 5,000 UNIT/ML 1 ML VIAL SUBCUT SCH ×3 (05:13→22:12)
[2018-12-30 05:15] LABS: ABSOLUTE EOSINOPHILS # (AUTO) 0.1 10^3/uL (0.0-0.6); ABSOLUTE LYMPHOCYTES (AUTO) 3.8 10^3/uL (0.5-4.7); ABSOLUTE MONOCYTES (AUTO) 0.6 10^3/uL (0.1-1.4); ABSOLUTE NEUT (AUTO) 2.9 10^3/uL (1.7-8.2); BASOPHILS % (AUTO) 0.6 % (0-2); EOSINOPHILS % (AUTO) 1.2 % (0-6); HEMATOCRIT 33.6 % (36.0-47.0); HEMOGLOBIN 11.4 g/dL (12.0-15.5); LYMPHOCYTES % (AUTO) 51.5 % (13-45); MEAN CORPUSCULAR HEMOGLOBIN 29.2 pg (27.0-33.4); MEAN CORPUSCULAR HGB CONC 33.9 g/dL (32.0-36.0); MEAN CORPUSCULAR VOLUME 86 fl (80-97); MONOCYTES % (AUTO) 7.6 % (3-13); PLATELET COUNT 181 10^3/uL (150-450); RED CELL DISTRIBUTION WIDTH 22.5 % (11.5-14.0); SEGMENTED NEUTROPHILS % (AUTO) 39.1 % (42-78); TOTAL CELLS COUNTED % (AUTO) 100 %; WHITE BLOOD COUNT 7.3 10^3/uL (4.0-10.5)
[2018-12-30 05:34] LABS: BLOOD UREA NITROGEN 16 mg/dL (7-20); CALCIUM 9.3 mg/dL (8.4-10.2); GLUCOSE 89 mg/dL (75-110)
[2018-12-30 05:35] LABS: ANION GAP 8 (5-19); CARBON DIOXIDE 27 mmol/L (22-30); CHLORIDE 104 mmol/L (98-107)
[2018-12-30] MEDS: BUSPIRONE HCL 10 MG TABLET PO SCH (07:37)
[2018-12-30] MEDS: METOPROLOL SUCCINATE 25 MG TAB.SR.24H PO SCH (07:38)
[2018-12-30] MEDS ORDERED: ONDANSETRON HCL INJ/PF 4 MG/2 ML SDV ONE ×2 (11:39→13:17)
--- NOTE | 2018-12-30 11:43 | Operative Report ---
Operative Report DATE OF SURGERY: 12/30/18 Operative Report: The risks, benefits and alternatives of the procedure including the risk of bleeding, perforation requiring surgery have been explained to the patient in detail and informed consent has been obtained. The patient is placed in a left, lateral decubital position. Timeout was called. Propofol medication is administered. Rectal examination is done which did not reveal any masses, tears or fissures. An Olympus videoscope was introduced into the patient's rectum. Prep was not good. The scope was then with some difficulty and with abdominal pressure that was applied and I was fortunate to reach the cecum. Cecum was identified by the usual anatomical landmarks of the ileocecal valve as well as the appendiceal office. Photodocumentation is obtained. The scope was then sequentially pulled back through the various segments of the colon including the ascending colon, hepatic flexure, transverse colon, splenic flexure, descending colon finding to the rectosigmoid portions of the colon. Retroflexion maneuver is performed. PREOPERATIVE DIAGNOSIS: Chronic constipation POSTOPERATIVE DIAGNOSIS: Redundant colon. Possible ascending colon polyp status post biopsy. If there is adenomatous tissue the concern here is that she will have to be sent for surgery previous the location of the polyp makes it hard to be removed during endoscopic procedure. There is a rectosigmoid colon polyp was removed via snare polypectomy and retrieved. Several hyperplastic polyps are noted. Diverticulosis OPERATION: Colonoscopy with snare polypectomy. Colonoscopy with biopsy SURGEON: ERNIE BURNETT ANESTHESIA: LMAC TISSUE REMOVED OR ALTERED: As noted above. COMPLICATIONS: None. ESTIMATED BLOOD LOSS: None. INTRAOPERATIVE FINDINGS: As noted above. Bad prep. PROCEDURE: Patient tolerated the procedure well. No immediate postprocedure complications are noted. Patient is sent back to her room in good condition. Resume regular diet Resume previous activity level When discharge as outpatient start on Linzess 290 mcg twice daily Follow-up as outpatient May need surveillance colonoscopy Depending on the nature of the polyp may need surgical referral
[2018-12-30] MEDS: DOCUSATE SODIUM 100 MG CAPSULE PO SCH ×2 (12:47→17:28)
[2018-12-30] MEDS: QUETIAPINE FUMARATE 25 MG TABLET PO SCH ×2 (12:48→22:10)
[2018-12-30] MEDS: DIVALPROEX SODIUM 250 MG TABLET.DR PO SCH ×2 (12:48→22:11)
[2018-12-30] MEDS: RANOLAZINE 500 MG TAB.SR.12H PO SCH ×2 (12:48→17:32)
[2018-12-30] MEDS: PANTOPRAZOLE SODIUM 40 MG VIAL IV SCH (12:49)
[2018-12-30] MEDS ORDERED: ONDANSETRON HCL INJ/PF 4 MG/2 ML SDV IV PRN (13:20)
[2018-12-30] MEDS: NITROGLYCERIN 0.4 MG/TAB 25 TAB/BOTTLE SL PRN ×3 (13:22→13:35)
[2018-12-30] MEDS ORDERED: MORPHINE SULFATE 10 MG/ML INJ IV PRN (13:26)
[2018-12-30] MEDS ORDERED: MORPHINE SULFATE 10 MG/ML INJ ONE (13:29)
--- NOTE | 2018-12-30 13:45 | PDOC PROGRESS REPORT ---
Subjective Progress Note for:: 12/30/18 Subjective:: The patient completed her colonoscopy and has returned to the room. I was called urgently to the room because the patient was in a position clutching her chest complaining of severe chest pain that was similar to the pain she has had with her bypass and heart attacks. She was crying hysterically Reason For Visit: SEVERE CONSTIPATION Physical Exam Vital Signs: Temp Pulse Resp BP Pulse Ox 97.6 F 69 16 164/92 H 98 12/30/18 00:00 12/30/18 11:50 12/30/18 11:50 12/30/18 11:50 12/30/18 11:50 Intake & Output 12/29/18 12/30/18 12/31/18 06:59 06:59 06:59 Intake Total 1000 2000 800 Output Total 50 Balance 950 2000 800 Weight 79.7 kg 77.9 kg General appearance: PRESENT: severe distress - crying hysterically in a position, well-developed, well-nourished Head exam: PRESENT: atraumatic, normocephalic Respiratory exam: PRESENT: clear to auscultation ailyn, symmetrical. ABSENT: chest wall tenderness, rales, retraction, rhonchi, tachypnea, wheezes Cardiovascular exam: PRESENT: RRR, +S1, +S2 GI/Abdominal exam: ABSENT: distended, soft, tenderness Neurological exam: PRESENT: alert, awake Psychiatric exam: PRESENT: agitated, anxious Results Laboratory Results: 12/30/18 05:03 12/30/18 05:03 12/30/18 12/30/18 05:03 05:03 WBC 7.3 RBC 3.90 Hgb 11.4 L Hct 33.6 L MCV 86 MCH 29.2 MCHC 33.9 RDW 22.5 H Plt Count 181 Seg Neutrophils % 39.1 L Sodium 139.3 Potassium 4.0 Chloride 104 Carbon Dioxide 27 Anion Gap 8 BUN 16 Creatinine 1.10 Est GFR ( Amer) > 60 Glucose 89 Calcium 9.3 Magnesium 2.2 Impressions: Chest X-Ray 12/27/18 18:37 IMPRESSION: NO ACUTE FINDINGS. KUB X-Ray 12/27/18 18:37 IMPRESSION: NO RADIOGRAPHIC EVIDENCE FOR ACUTE ABDOMINAL DISEASE. Marked constipation. Assessment and Plan - Diagnosis (1) Constipation Qualifiers: Constipation type: slow transit constipation Qualified Code(s): K59.01 - Slow transit constipation Is this a current diagnosis for this admission?: Yes Plan: 12/28/2018-this is likely due to slow transit. The patient does not take large amounts of narcotics for pain. A nasogastric tube was inserted today because she began to vomit dark-colored liquid. We are going to try and utilize GoLYTELY as well as metoclopramide and bisacodyl to help clear the patient's fecal impaction. There will be no suction on the nasogastric tube if she is tolerating the GoLYTELY. If nausea and vomiting develops again then we will need to resume suction at least intermittently. Soapsuds enemas have also been ordered. Dr. Celeste is seeing the patient as well. 12/29/2018-we finally have significant movement. I expect with the multiple bowel movements it will be easier and easier for the patient to tolerate oral intake in order to complete her bowel prep. Dr. Tello plans endoscopy tomorrow if her bowel prep appears to be complete. 12/30/2018-resolved. Mag citrate and GoLYTELY were given causing a very aggressive cleanout with lots of fecal incontinence. Colonoscopy revealed redundant colon. Some polyps were addressed and diverticuli were noted. I discussed with the patient the need for her to be sure to have a bowel movement every 2 to 3 days. If she continues to extend these periods without a bowel movement to the 5 and 7-day timeframe since she will end up back in the hospital. (2) Fecal impaction Is this a current diagnosis for this admission?: Yes Plan: 12/28/2018-please see plan outlined above 12/29/2018-resolved 12/30/2018-she needs to develop a regimen that allows her to have a bowel movement every second or third day without the need for straining. (3) Intractable nausea and vomiting Is this a current diagnosis for this admission?: Yes Plan: 12/28/2018-metoclopramide will be used for the emesis as well as to promote bowel motility. Gastroccult did test positive for blood in the emesis. With utilization of the nasogastric tube and decompression hopefully the nausea and vomiting will subside. 12/29/2018- now that the bowels are moving the nausea and vomiting is improving. We will maintain the nasogastric tube for now. 12/30/2018-resolved (4) Gastritis Qualifiers: Chronicity: unspecified Gastritis bleeding: with bleeding Is this a current diagnosis for this admission?: Yes Plan: 12/28/2018-the emesis was Gastroccult positive. There is no hilary blood/hematemesis and this is likely gastritis. The patient is now on intra venous pantoprazole. 12/29/2018-the patient is still having some epigastric discomfort. I will incr ease the Protonix to twice daily. Possibly Dr. Celeste can examine the stomach as well as the colon. Consider Carafate after endoscopies. 12/30/2018-I will switch from her Pepcid to Protonix. If she is still having any stomach discomfort I will add Carafate. (5) Diabetes mellitus type 2 in nonobese Is this a current diagnosis for this admission?: Yes Plan: 12/28/2018-diabetes medications will be on hold while the patient is n.p.o. She will get Accu-Cheks every 6 hours and there is sliding scale in the event of hyperglycemia. 12/29/20188423-Gvvr-Yjuoj are still slightly high. Further refinements in her regimen can be made when she is on an oral diet. 12/30/2018-reasonable control at this time (6) Hypothyroidism Qualifiers: Hypothyroidism type: acquired Qualified Code(s): E03.9 - Hypothyroidism, unspecified Is this a current diagnosis for this admission?: Yes Plan: 12/28/2018-continue levothyroxine. If she cannot take it by mouth after several days we will start intravenous therapy. 12/29/2018-levothyroxine on hold. I expect to resume medications tomorrow. If only 2 to 3 days or missed I do not feel that IV levothyroxine is required. 12/30/2018-resume levothyroxine (7) Chronic kidney disease (CKD), stage III (moderate) Is this a current diagnosis for this admission?: Yes Plan: 12/28/2018-the patient will be getting fluids to compensate for the emesis. We will monitor intake and output. We will monitor the renal function closely. Her current GFR is approximately around her baseline as evidenced from blood work drawn from previous admissions. 12/29/2018-serum creatinine is back in the normal range. GFR is now greater than 50. 12/30/2018-stable (8) CAD (coronary artery disease) Qualifiers: Coronary Disease-Associated Artery/Lesion type: circle artery [place] vs. transplanted heart: circle heart Associated angina: without angina Qualified Code(s): I25.10 - Atherosclerotic heart disease of circle coronary artery without angina pectoris Is this a current diagnosis for this admission?: Yes Plan: 12/28/2018-there is no evidence of acute coronary syndrome. I did asked the nurses to try and administer the patient's cardiac medications during windows of no emesis. If the Populis works the medicines may have rapid transit. Hopefully this will resolve by tomorrow and the patient will not miss many medications. If there are acute episodes other medication regimens can be instituted. 12/29/2018-currently asymptomatic. Continue to monitor. 12/30/2018-today's episode raised grave concern for acute coronary syndrome. Ev aluation including laboratory studies and EKG were unremarkable. Today's episode was not cardiac. She will continue with her cardiac regimen at discharge. - Time Time Spent with patient: 35 or more minutes Medications reviewed and adjusted accordingly: Yes Anticipated discharge: SNF, Other - She is a permanent resident at [facility] Within: within 24 hours
[2018-12-30] MEDS ORDERED: NITROGLYCERIN 2% OINTMENT 1 GM PACKET ONE (13:56)
[2018-12-30] MEDS ORDERED: MORPHINE SULFATE 10 MG/ML INJ IV ONE (14:00)
[2018-12-30] MEDS ORDERED: NITROGLYCERIN 2% OINTMENT 1 GM PACKET TP ONE (15:00)
[2018-12-30] MEDS: NALBUPHINE HCL INJ 10 MG/1 ML AMPULE IV PRN (15:03)
[2018-12-30] MEDS: NITROGLYCERIN 2% OINTMENT 1 GM PACKET TP SCH ×2 (17:28→23:33)
--- NOTE | 2018-12-30 18:14 | EKG REPORT ---
SEVERITY:- ABNORMAL ECG - SINUS RHYTHM NONSPECIFIC IVCD WITH LAD INFERIOR INFARCT, AGE INDETERMINATE CONSIDER ANTERIOR INFARCT : Confirmed by: Agustin Crawford MD 30-Dec-2018 18:13:06
[2018-12-30] MEDS ORDERED: ASPIRIN 81 MG TABLET, CHEWABLE PO SCH (22:00)
[2018-12-30] MEDS: ATORVASTATIN CALCIUM 40 MG TABLET PO SCH (22:11)
[2018-12-30] MEDS: RINGERS SOLUTION,LACTATED 1,000 ML IV PRN (22:14)
[2018-12-31] MEDS ORDERED: RINGERS SOLUTION,LACTATED 1,000 ML IV ONE ×3 (00:30→06:00)
[2018-12-31] MEDS: METOCLOPRAMIDE HCL INJ/PF 10 MG/2 ML SDV IV SCH ×3 (01:35→12:39)
[2018-12-31] MEDS ORDERED: PANTOPRAZOLE SODIUM 40 MG TABLET.DR PO SCH (06:00)
[2018-12-31] MEDS: HEPARIN SOD (PORCINE) 5,000 UNIT/ML 1 ML VIAL SUBCUT SCH ×2 (06:02→13:00)
[2018-12-31] MEDS: RINGERS SOLUTION,LACTATED 1,000 ML IV PRN (07:45)
[2018-12-31] MEDS ORDERED: MULTIVITAMIN TABLET PO SCH (08:00)
[2018-12-31] MEDS ORDERED: (PENDING PHARMACY ID) (Metformin Hcl [Glucophage Xr 500 Mg Tablet] 500 MG) PO SCH (08:00)
[2018-12-31] MEDS: METFORMIN HCL 500 MG TABLET PO SCH ×2 (08:41→16:39)
[2018-12-31] MEDS: METOPROLOL SUCCINATE 25 MG TAB.SR.24H PO SCH (08:41)
[2018-12-31] MEDS: BUSPIRONE HCL 10 MG TABLET PO SCH (08:42)
[2018-12-31] MEDS: DIVALPROEX SODIUM 250 MG TABLET.DR PO SCH (09:46)
[2018-12-31] MEDS: QUETIAPINE FUMARATE 25 MG TABLET PO SCH (09:46)
[2018-12-31] MEDS: RANOLAZINE 500 MG TAB.SR.12H PO SCH (09:46)
[2018-12-31] MEDS ORDERED: DOCUSATE SODIUM 100 MG CAPSULE PO SCH (10:00)
--- NOTE | 2018-12-31 11:03 | PDOC TRANSFER SUMMARY ---
Impression - Admit/DC Date/PCP Admission Date/Primary Care Provider: 12/27/18 23:32 TREVON SKAGGS PA-C Discharge Date: 12/31/18 - Discharge Diagnosis (1) Constipation Is this a current diagnosis for this admission?: Yes (2) Fecal impaction Is this a current diagnosis for this admission?: Yes (3) Intractable nausea and vomiting Is this a current diagnosis for this admission?: Yes (4) Gastritis Is this a current diagnosis for this admission?: Yes (5) Diabetes mellitus type 2 in nonobese Is this a current diagnosis for this admission?: Yes (6) Chronic kidney disease (CKD), stage III (moderate) Is this a current diagnosis for this admission?: Yes (7) CAD (coronary artery disease) Is this a current diagnosis for this admission?: Yes - Additional Information Resuscitation Status: Full Code Discharge Diet: Cardiac, Diabetic Discharge Activity: Activity As Tolerated Referrals: [facility] [Outside] ERNIE BURNETT MD [ACTIVE STAFF] - (Follow-up with Dr. Tello in 1 to 2 weeks to review colonoscopy and biopsies) Home Medications: Acetaminophen [Tylenol 325 mg Tablet] 650 mg PO Q6HP PRN 12/13/18 Aspirin [Aspirin 81 mg Chewable Tablet] 81 mg PO QHS 12/13/18 Atorvastatin Calcium [Lipitor 40 mg Tablet] 40 mg PO QHS 12/13/18 Buspirone HCl [Buspar 5 mg Tablet] 5 mg PO QAM 12/13/18 Docusate Sodium [Colace 100 mg Capsule] 100 mg PO BID 12/13/18 Famotidine [Pepcid 20 mg Tablet] 20 mg PO BID 12/13/18 Metformin HCl [Glucophage XR 500 mg Tablet] 500 mg PO QAM 12/13/18 Metoprolol Succinate [Toprol Xl 25 mg Tab.sr] 25 mg PO QAM 12/13/18 Multivitamin [Multiple Vitamins] 1 tab PO QAM 12/13/18 Nitroglycerin [Nitrostat 0.4 mg (1/150 Gr) Tabs 25/Bottle] 0.4 mg SL Q5MP PRN 12/13/18 Quetiapine Fumarate [Seroquel] 50 mg PO Q12 12/13/18 Ranolazine [Ranexa 500 mg Tab.sr] 500 mg PO BID 12/13/18 Divalproex Sodium [Depakote] 500 mg PO Q12 12/28/18 Ondansetron [Zofran Odt 4 mg Tablet] 4 mg PO Q8HP PRN 12/28/18 Acetaminophen [Tylenol 325 mg Tablet] 650 mg PO Q4HP PRN tablet 12/31/18 History of Present Illiness History of Present Illness: CHARLEY SHERMAN is a 58 year old female who resides at [facility]. She was referred for abdominal pain. She had not had a bowel movement in I believe 7 or 8 days. She was found to have fecal impaction. In the emergency department she in fact had vomiting of dark-colored fluid which was Gastroccult positive. She was admitted to the hospital service for further treatment and colonoscopy with Dr. Tello. Hospital Course Hospital Course: It was very difficult hospital course for the patient. Trying to administer a bowel prep with her nausea and vomiting proved challenging. After small amounts of mag citrate were introduced she began to have bowel movements. She then tolerated administration of GoLYTELY. This caused profuse and uncontrollable bowel movements. Unfortunately these happened very quickly and without warning. It occurred on her way to endoscopy as well as multiple times in her room. Additionally, when she returned from the colonoscopy she had an acute onset of severe chest pain. She was extremely worried that it was cardiac. An emergent EKG, blood work and evaluation did not suggest cardiac etiology. Her pain did resolve. She is tolerating soft foods and should advance her diet slowly. Physical Exam Vital Signs: Temp Pulse Resp BP Pulse Ox 97.5 F 72 18 92/48 L 96 12/31/18 05:30 12/31/18 05:30 12/31/18 05:30 12/31/18 05:30 12/31/18 05:30 Intake & Output 12/30/18 12/31/18 01/01/19 06:59 06:59 05:59 Intake Total 1999 3262 1660 Balance 1999 3262 1660 Weight 77.9 kg 78.2 kg General appearance: PRESENT: no acute distress, cooperative, well-developed Head exam: PRESENT: atraumatic, normocephalic Eye exam: PRESENT: conjunctiva pink. ABSENT: scleral icterus Ear exam: PRESENT: normal external ear exam. ABSENT: bleeding, drainage Mouth exam: PRESENT: moist, tongue midline Respiratory exam: PRESENT: clear to auscultation ialyn, symmetrical, unlabored. ABSENT: rales, rhonchi, tachypnea, wheezes Cardiovascular exam: PRESENT: RRR, +S1, +S2 GI/Abdominal exam: PRESENT: normal bowel sounds, soft. ABSENT: distended, tenderness Rectal exam: PRESENT: deferred Neurological exam: PRESENT: alert, awake, oriented to person, oriented to place, oriented to time, oriented to situation, CN II-XII grossly intact Psychiatric exam: PRESENT: flat affect. ABSENT: agitated, anxious Focused psych exam: ABSENT: delusional, restlessness Skin exam: PRESENT: dry, warm. ABSENT: rash Results Laboratory Results: WBC 7.3 10^3/uL (4.0-10.5) 12/30/18 05:03 RBC 3.90 10^6/uL (3.72-5.28) 12/30/18 05:03 Hgb 11.4 g/dL (12.0-15.5) L 12/30/18 05:03 Hct 33.6 % (36.0-47.0) L 12/30/18 05:03 MCV 86 fl (80-97) 12/30/18 05:03 MCH 29.2 pg (27.0-33.4) 12/30/18 05:03 MCHC 33.9 g/dL (32.0-36.0) 12/30/18 05:03 RDW 22.5 % (11.5-14.0) H 12/30/18 05:03 Plt Count 181 10^3/uL (150-450) 12/30/18 05:03 Lymph % (Auto) 51.5 % (13-45) H 12/30/18 05:03 [place] % (Auto) 7.6 % (3-13) 12/30/18 05:03 Eos % (Auto) 1.2 % (0-6) 12/30/18 05:03 Baso % (Auto) 0.6 % (0-2) 12/30/18 05:03 Absolute Neuts (auto) 2.9 10^3/uL (1.7-8.2) 12/30/18 05:03 Absolute Lymphs (auto) 3.8 10^3/uL (0.5-4.7) 12/30/18 05:03 Absolute Monos (auto) 0.6 10^3/uL (0.1-1.4) 12/30/18 05:03 Absolute Eos (auto) 0.1 10^3/uL (0.0-0.6) 12/30/18 05:03 Absolute Basos (auto) 0.0 10^3/uL (0.0-0.2) 12/30/18 05:03 Seg Neutrophils % 39.1 % (42-78) L 12/30/18 05:03 Sodium 139.3 mmol/L (137-145) 12/30/18 05:03 Potassium 4.0 mmol/L (3.6-5.0) 12/30/18 05:03 Chloride 104 mmol/L (98-107) 12/30/18 05:03 Carbon Dioxide 27 mmol/L (22-30) 12/30/18 05:03 Anion Gap 8 (5-19) 12/30/18 05:03 BUN 16 mg/dL (7-20) 12/30/18 05:03 Creatinine 1.10 mg/dL (0.52-1.25) 12/30/18 05:03 Est GFR ( Amer) > 60 (>60) 12/30/18 05:03 Est GFR (MDRD) Non-Af 51 (>60) L 12/30/18 05:03 Glucose 89 mg/dL (75-110) 12/30/18 05:03 POC Glucose 93 mg/dL (70-110) 12/31/18 06:38 Hemoglobin A1c % 9.8 % (4.7-6.0) H 12/29/18 06:11 Calcium 9.3 mg/dL (8.4-10.2) 12/30/18 05:03 Magnesium 2.2 mg/dL (1.6-2.3) 12/30/18 05:03 Total Bilirubin 0.8 mg/dL (0.2-1.3) 12/27/18 17:43 Direct Bilirubin 0.4 mg/dL (0.0-0.4) 12/27/18 17:43 Neonat Total Bilirubin Not Reportable 12/27/18 17:43 Neonat Direct Bilirubin Not Reportable 12/27/18 17:43 Neonat Indirect Bili Not Reportable 12/27/18 17:43 AST 30 U/L (14-36) 12/27/18 17:43 ALT 18 U/L (<35) 12/27/18 17:43 Alkaline Phosphatase 144 U/L (38-126) H 12/27/18 17:43 Creatine Kinase 49 U/L (30-135) 12/30/18 14:08 Troponin I 0.024 ng/mL 12/30/18 14:08 Total Protein 9.9 g/dL (6.3-8.2) H 12/27/18 17:43 Albumin 5.0 g/dL (3.5-5.0) 12/27/18 17:43 Triglycerides 83 mg/dL (<150) 12/29/18 05:49 Cholesterol 151.18 mg/dL (0-200) 12/29/18 05:49 LDL Cholesterol Direct 84 mg/dL (<100) 12/29/18 05:49 VLDL Cholesterol 17.0 mg/dL (10-31) 12/29/18 05:49 HDL Cholesterol 48 mg/dL (>40) 12/29/18 05:49 Lipase 183.3 U/L (23-300) 12/27/18 17:43 Urine Color YELLOW 12/27/18 18:20 Urine Appearance CLEAR 12/27/18 18:20 Urine pH 7.0 (5.0-9.0) 12/27/18 18:20 Ur Specific [place] 1.012 12/27/18 18:20 Urine Protein 100 mg/dL (NEGATIVE) H 12/27/18 18:20 Urine Glucose (UA) 50 mg/dL (NEGATIVE) H 12/27/18 18:20 Urine Ketones TRACE mg/dL (NEGATIVE) H 12/27/18 18:20 Urine Blood NEGATIVE (NEGATIVE) 12/27/18 18:20 Urine Nitrite NEGATIVE (NEGATIVE) 12/27/18 18:20 Urine Bilirubin NEGATIVE (NEGATIVE) 12/27/18 18:20 Urine Urobilinogen NEGATIVE mg/dL (<2.0) 12/27/18 18:20 Ur Leukocyte Esterase NEGATIVE (NEGATIVE) 12/27/18 18:20 Urine WBC (Auto) 0 /HPF 12/27/18 18:20 Urine RBC (Auto) 2 /HPF 12/27/18 18:20 Squamous Epi Cells Auto <1 /HPF 12/27/18 18:20 Urine Ascorbic Acid NEGATIVE (NEGATIVE) 12/27/18 18:20 12/30/18 14:08 Troponin I 0.024 Impressions: Chest X-Ray 12/27/18 18:37 IMPRESSION: NO ACUTE FINDINGS. KUB X-Ray 12/27/18 18:37 IMPRESSION: NO RADIOGRAPHIC EVIDENCE FOR ACUTE ABDOMINAL DISEASE. Marked constipation. Plan Health Concerns: Recurrent fecal impaction with ileus. She must have a strict bowel regimen and not go more than 3 days without a bowel movement Plan of Treatment: I would advance diet slowly. Continue all of her same medications. Follow-up with Dr. Tello in approximately 1 to 2 weeks to review colon biopsies and colonoscopy. Goals: Resolve episodes of constipation Time Spent: Greater than 30 Minutes Stroke Is this a Stroke Patient?: No Acute Heart Failure - Is this a Heart Failure Patient?: No
[2018-12-31 14:22] VITALS: BP 106/57
[2019-01-04 05:37] LABS: CK MACRO TYPE 1 0 % (Not Observ); CK MACRO TYPE 2 0 % (Not Observ); CK-MB 0 % (0-3); CK-MM 100 % (97-100); CREATINE KINASE TOTAL 33 U/L (24-173)
[2019-01-04 09:29] LABS: CK-BB 0 % (0)
== END 2018-12-31 17:20 | DRG 391 ==
LOC: ER 17:24 → EH 23:32 → 4S 12-28 11:28
PROVIDERS: ADMIT Emergency Medicine; ATTEND Emergency Medicine
PROC: 0DBN8ZZ Excision of Sigmoid Colon, Via Natural or Artificial Opening Endoscopic (ICD-10-PCS; principal; 2018-12-30 10:45)
PROC: 0DBK8ZX Excision of Ascending Colon, Via Natural or Artificial Opening Endoscopic, Diagnostic (ICD-10-PCS; 2018-12-30 10:45)
DX: K59.01 Slow transit constipation (principal); K29.71 Gastritis, unspecified, with bleeding; I25.10 Atherosclerotic heart disease of native coronary artery without angina pectoris; E78.00 Pure hypercholesterolemia, unspecified; K21.9 Gastro-esophageal reflux disease without esophagitis; F25.0 Schizoaffective disorder, bipolar type; E87.5 Hyperkalemia; R11.2 Nausea with vomiting, unspecified; E11.22 Type 2 diabetes mellitus with diabetic chronic kidney disease; E78.5 Hyperlipidemia, unspecified; E03.9 Hypothyroidism, unspecified; I95.9 Hypotension, unspecified; I12.9 Hypertensive chronic kidney disease with stage 1 through stage 4 chronic kidney disease, or unspecified chronic kidney disease; N18.3 Chronic kidney disease, stage 3 (moderate); E66.01 Morbid (severe) obesity due to excess calories; I25.2 Old myocardial infarction; Z88.8 Allergy status to other drugs, medicaments and biological substances; Z86.73 Personal history of transient ischemic attack (TIA), and cerebral infarction without residual deficits; Z95.1 Presence of aortocoronary bypass graft; Z95.5 Presence of coronary angioplasty implant and graft; Z79.82 Long term (current) use of aspirin; Z79.84 Long term (current) use of oral hypoglycemic drugs; Z79.899 Other long term (current) drug therapy; Z82.49 Family history of ischemic heart disease and other diseases of the circulatory system
CPT/HCPCS: 36415; 45380; 45385; 71045; 74018; 80048; 80053; 80061; 81001; 811; 82550; 82552; 82962; 83036; 83690; 83735; 84484; 85025; 88305; 93005; 93010; 96361; 96374; 96375; 99285; C9113; J0360; J1644; J2270; J2300; J2310; J2405; J2550; J2765; J3230; J3490; J7030; J7120

== ENCOUNTER 2019-11-25 22:36 | Observation (INO) | payer MEDICAID ==
[2019-11-25] MEDS ORDERED: NITROGLYCERIN 2% OINTMENT 1 GM PACKET TP ONE (23:28)
[2019-11-25] MEDS ORDERED: MORPHINE SULFATE 10 MG/ML INJ IV ONE (23:28)
--- NOTE | 2019-11-25 23:36 | ER Document Report ---
ED General - General Chief Complaint: Chest Pain > 30 Stated Complaint: CHEST PAIN Time Seen by Provider: 11/25/19 23:02 Primary Care Provider: DESTINY RUTLEDGE MD [NO LOCAL MD] - Follow up as needed TRAVEL OUTSIDE OF THE [place] IN LAST 30 DAYS: No - HPI Context: This is a 59-year-old female with a history of tobacco abuse, hypertension, elevated cholesterol, diabetes, prior cardiac stent, prior CABG presenting to the emergency department complaining of chest pain that started approximately 2 hours prior to presentation. Patient was sitting outside smoking and noticed a sudden onset of midsternal chest pain that she said initially radiated into her left arm. Patient states that the pain was sharp and initially very severe rating it as a 10 out of 10 prior to receiving 2 sublingual nitroglycerin by EMS in route along with 324 mg of aspirin. Patient states the pain came down to about a 7 out of 10. When asked what her pain is at this time, patient states that it is still sharp and a 4 out of 5 and its not relieved very much by the nitroglycerin. Patient states that after the initial onset of pain she stood up which exacerbated the pain patient also noted exacerbation of symptoms involved laying down on the bed which made her feel very nauseated and exacerbated her chest pain. Patient is also complaining of nausea. Patient denies diaphoresis or vomiting. Patient states she can feel the pain radiating to her right upper extremity at this point. Associated symptoms: Other - See HPI Exacerbated by: Other - See HPI Relieved by: Other - See HPI Similar symptoms previously: Yes - Related Data Allergies/Adverse Reactions: haloperidol [From Haldol] Allergy (Unknown, Verified 12/13/18 13:26) Past Medical History - General Information source: Patient, Emergency Med Personnel - Social History Smoking Status: Current Every Day Smoker Frequency of alcohol use: None Lives with: [facility] Family History: CAD Patient has suicidal ideation: No Patient has homicidal ideation: No - Past Medical History Cardiac Medical History: Reports: Hx Coronary Artery Disease, Hx Heart Attack - x2, Hx Hypercholesterolemia, Hx Hypertension Denies: Hx Atrial Fibrillation, Hx Congestive Heart Failure, Hx DVT, Hx Peripheral Vascular Disease, Hx Pulmonary Embolism Pulmonary Medical History: Reports: Hx Bronchitis, Hx COPD Denies: Hx Asthma, Hx Pneumonia, Hx Respiratory Failure, Hx Tuberculosis Neurological Medical History: Reports: Hx Cerebrovascular Accident. Denies: Hx Seizures Endocrine Medical History: Reports: Hx Diabetes Mellitus Type 2. Denies: Hx Hyperthyroidism, Hx Hypothyroidism Renal/ Medical History: Reports: Hx Kidney Stones. Denies: Hx Peritoneal Dialysis GI Medical History: Reports: Hx Gastroesophageal Reflux Disease. Denies: Hx Cirrhosis, Hx Crohn's Disease, Hx Hepatitis, Hx Ulcerative Colitis Musculoskeletal Medical History: Denies Hx Arthritis, Denies Hx Gout Skin Medical History: Denies Hx Eczema, Denies Hx Psoriasis Psychiatric Medical History: Reports: Hx Bipolar Disorder, Hx Depression, Hx Schizoaffective Disorder, Hx Schizophrenia Infectious Medical History: Denies: Hx Hepatitis Past Surgical History: Reports: Hx Cardiac Catheterization, Hx Cardiac Surgery - stents, CABG 09/2016, Hx Cholecystectomy, Hx Coronary Artery Bypass Graft - September 2016, Hx Coronary Stent - x2, Hx Open Heart Surgery, Hx Thyroid Surgery, Hx Tonsillectomy, Hx Tubal Ligation, Hx Urinary Tract Surgery, Hx Vascular Surgery, Other - PEG tube placement. Denies: Hx Hysterectomy - Immunizations Hx Diphtheria, Pertussis, Tetanus Vaccination: Yes Hx Pneumococcal Vaccination: 11/29/16 Review of Systems - Review of Systems Constitutional: No symptoms reported EENT: No symptoms reported Cardiovascular: Chest pain Respiratory: No symptoms reported Gastrointestinal: Nausea Genitourinary: No symptoms reported Female Genitourinary: No symptoms reported Musculoskeletal: No symptoms reported Skin: No symptoms reported Hematologic/Lymphatic: No symptoms reported Neurological/Psychological: No symptoms reported -: Yes All other systems reviewed and negative Physical Exam - Notes Notes: CONSTITUTIONAL [Vital signs reviewed, Patient appears comfortable, Alert and oriented X 3, Normal stature.] HEAD [Atraumatic, Normocephalic.] EYES [Eyes are normal to inspection, No discharge from eyes, Extraocular muscles intact, Sclera are normal, Conjunctiva are normal.] NECK [Normal ROM, No jugular venous distention, No meningeal signs, no carotid bruit.] RESPIRATORY CHEST [Chest is nontender, Breath sounds normal, No respiratory distress.] CARDIOVASCULAR [RRR, No murmurs, Normal S1 S2, No rub, No gallop.] ABDOMEN [Abdomen is nontender, No pulsatile masses, No other masses, Bowel sounds normal, No distension, No peritoneal signs, No hernias.] BACK [There is no CVA Tenderness, There is no tenderness to palpation, Normal inspection.] UPPER EXTREMITY [Inspection normal, No cyanosis, No clubbing, No edema, 2+ radial pulses.] LOWER EXTREMITY [Inspection normal, No cyanosis, No clubbing, No edema, No calf tenderness, 2+ femoral pulses.] NEURO [No focal motor deficits, No focal sensory deficits, Speech normal.] SKIN [Skin is warm, Skin is dry, Skin is normal color.] LYMPHATIC [No adenopathy in neck.] PSYCHIATRIC [Normal affect. ] Course - Re-evaluation Re-evalutation: 11/26/19 01:00 Patient was sleeping when this MD went back into the room to reevaluate the patient when the patient was awoken from sleep she said her chest pain was resolved. Recommendation for admission discussed with patient. Patient agreed with this. - Laboratory Result Diagrams: 11/25/19 23:33 11/25/19 23:33 Laboratory results interpreted by me: 11/25/19 11/25/19 23:33 23:33 RDW 20.5 H Plt Count 146 L Potassium 5.1 H BUN 25 H Creatinine 1.39 H Est GFR ( Amer) 47 L Est GFR (MDRD) Non-Af 39 L Glucose 181 H Direct Bilirubin 0.5 H - Diagnostic Test Radiology reviewed: Reports reviewed - EKG Interpretation by Me Additional EKG results interpreted by me: 11/25/19 23:42 EKG obtained on 11/25/2019 at 2309 hrs. normal sinus rhythm, rate 66, normal axis, MD interval appears to be within normal limits, P waves proceed QRS complexes, QRS complexes appear narrow, QTC is 449, there are no obvious patterns of ST elevation or depression present to suggest acute myocardial ischemia or infarction. Impression normal sinus rhythm with nonspecific ST segments. Reviewed with prior EKG from 06/04/2019 reveals no significant changes. - Consults Dr. Rogers Time consulted: 01:02 - Dr. Rgoers agreed to admit pt Reason for consultation: 11/26/19 01:01 chest pain, heart score 5 Discharge - Discharge Clinical Impression: Chest pain Qualifiers: Chest pain type: unspecified Qualified Code(s): R07.9 - Chest pain, unspecified Condition: Stable Disposition: ADMITTED OBSERVATION Admitting Provider: Sue (Hospitalist) Unit Admitted: Telemetry Referrals: DESTINY RUTLEDGE MD [NO LOCAL MD] - Follow up as needed
[2019-11-25 23:49] LABS: ABSOLUTE EOSINOPHILS # (AUTO) 0.1 10^3/uL (0.0-0.6); ABSOLUTE LYMPHOCYTES (AUTO) 1.9 10^3/uL (0.5-4.7); ABSOLUTE MONOCYTES (AUTO) 0.7 10^3/uL (0.1-1.4); BASOPHILS % (AUTO) 0.4 % (0-2); EOSINOPHILS % (AUTO) 1.7 % (0-6); HEMATOCRIT 36.2 % (36.0-47.0); HEMOGLOBIN 12.3 g/dL (12.0-15.5); LYMPHOCYTES % (AUTO) 32.9 % (13-45); MEAN CORPUSCULAR VOLUME 85 fl (80-97); PLATELET COUNT 146 10^3/uL (150-450); RED BLOOD COUNT 4.25 10^6/uL (3.72-5.28); RED CELL DISTRIBUTION WIDTH 20.5 % (11.5-14.0); TOTAL CELLS COUNTED % (AUTO) 100 %; WHITE BLOOD COUNT 5.7 10^3/uL (4.0-10.5)
--- NOTE | 2019-11-25 23:51 | RADIOLOGY REPORT (SQ) ---
CLINICAL INDICATION: CP. TECHNIQUE: A single portable AP view was obtained of the chest at 2327 hours. COMPARISON: June 04, 2019. FINDINGS: The cardiomediastinal silhouette is enlarged but stable with postsurgical change. The lungs are grossly clear. No evidence of effusion or pneumothorax. Chronic parenchymal change. IMPRESSION: No evidence of active intrathoracic disease.
[2019-11-26 00:04] LABS: ALBUMIN 4.2 g/dL (3.5-5.0); ALKALINE PHOSPHATASE 97 U/L (38-126); ANION GAP 10 (5-19); ASPARTATE AMINO TRANSFERASE 23 U/L (14-36); BILIRUBIN,DIRECT 0.5 mg/dL (0.0-0.4); BILIRUBIN,TOTAL 0.6 mg/dL (0.2-1.3); BLOOD UREA NITROGEN 25 mg/dL (7-20); CALCIUM 9.6 mg/dL (8.4-10.2); CARBON DIOXIDE 26 mmol/L (22-30); CHLORIDE 103 mmol/L (98-107); CREATINE KINASE 48 U/L (30-135); GLUCOSE 181 mg/dL (75-110); POTASSIUM 5.1 mmol/L (3.6-5.0); TOTAL PROTEIN 7.8 g/dL (6.3-8.2)
[2019-11-26 00:17] LABS: CREATINE KINASE MB 2.9 ng/mL (<4.55); TROPONIN I 0.017 ng/mL
--- NOTE | 2019-11-26 01:36 | PDOC H&P ---
History of Present Illness Admission Date/PCP: TREVON SKAGGS PA-C History of Present Illness: CHARLEY SHERMAN is a 59 year old female who is a resident of [facility] past medical history of tobacco abuse, hypertension, diabetes, hyperlipidemia CKD, CAD status post stent placement and CABG presenting to ED complaining of chest pain 2 hours prior to presentation to ED. Patient is stating that she was smoking outside when she noticed sudden onset midsternal chest pain radiating to epigastric region, pain was sharp, exacerbated with movement, and relieved with nitroglycerin, pain rated as 10 out of 10 prior to receiving nitroglycerin. EMS was called and patient was given 2 sublingual nitroglycerin and 324 mg of aspirin. On my encounter patient is comfortably seen with no apparent distress, stating that her chest pain has resolved, still has some nausea feels short of breath, orthopnea, paroxysmal nocturnal dyspnea, palpitations, lightheadedness, denies any fever, chills, abdominal pain, diarrhea, constipation or any urinary symptoms. On physical examination patient has clearly tenderness to palpitation all over her chest, but denies any heavy lifting, having started any recent workout regimen, having received any trauma to the chest or any fall. In ED she was noted to be hypertensive, with detectable troponin of 0.017 down from baseline of 0.024. EKG did not show any acute EKG changes. Given history of extensive cardiovascular disease and HEART score of 4 as per ED physician hospital was consulted for admission. Of note patient had an abnormal Cardiolite stress test on 08/05/2018 and was asked to follow-up with Dr. Brooks outpatient for possible catheterization however when patient asked if she has a log manager she says she does not see any log manager seems like patient has not followed up with log manager as per recommendation from previous hospitalization. Past Medical History Cardiac Medical History: Reports: Coronary Artery Disease, Myocardial Infarction - x2, Hyperlipidema, Hypertension Denies: Atrial Fibrillation, Congestive Heart Failure, DVT, Peripheral Vascular Disease, Pulmonary Embolism Pulmonary Medical History: Reports: Bronchitis, Chronic Obstructive Pulmonary Disease (COPD) Denies: Asthma, Pneumonia, Respiratory Failure, Tuberculosis Neurological Medical History: Denies: Seizures Endocrine Medical History: Reports: Diabetes Mellitus Type 2 Denies: Hyperthyroidism, Hypothyroidism GI Medical History: Reports: Gastroesophageal Reflux Disease Denies: Cirrhosis, Crohn's Disease, Hepatitis, Ulcerative Colitis Musculoskeltal Medical History: Denies: Arthritis, Gout Skin Medical History: Denies: Eczema, Psoriasis Psychiatric Medical History: Reports: Bipolar Disorder, Depression, Alber izoaffective Disorder Hematology: Denies: Anemia, Bleeding Tendencies Past Surgical History Past Surgical History: Reports: Cardiac Catheterization, Cholecystectomy, Coronary Artery Bypass Graft - September 2016, Coronary Stent - x2, Tonsillectomy, Tubal Ligation, Vascular Surgery, Other - PEG tube placement Denies: Hysterectomy Social History Lives with: [facility] Smoking Status: Current Every Day Smoker Frequency of Alcohol Use: None Hx Recreational Drug Use: No Drugs: None Hx Prescription Drug Abuse: No Family History Family History: CAD Parental Family History Reviewed: Yes Children Family History Reviewed: Yes Sibling(s) Family History Reviewed.: Yes Medication/Allergy Home Medications: Acetaminophen [Tylenol 325 mg Tablet] 650 mg PO Q6HP PRN 12/13/18 Aspirin [Aspirin 81 mg Chewable Tablet] 81 mg PO QHS 12/13/18 Atorvastatin Calcium [Lipitor 40 mg Tablet] 40 mg PO QHS 12/13/18 Buspirone HCl [Buspar 5 mg Tablet] 5 mg PO QAM 12/13/18 Docusate Sodium [Colace 100 mg Capsule] 100 mg PO BID 12/13/18 Famotidine [Pepcid 20 mg Tablet] 20 mg PO BID 12/13/18 Metformin HCl [Glucophage XR 500 mg Tablet] 500 mg PO QAM 12/13/18 Metoprolol Succinate [Toprol Xl 25 mg Tab.sr] 25 mg PO QAM 12/13/18 Multivitamin [Multiple Vitamins] 1 tab PO QAM 12/13/18 Nitroglycerin [Nitrostat 0.4 mg (1/150 Gr) Tabs 25/Bottle] 0.4 mg SL Q5MP PRN 12/13/18 Quetiapine Fumarate [Seroquel] 50 mg PO Q12 12/13/18 Ranolazine [Ranexa 500 mg Tab.sr] 500 mg PO BID 12/13/18 Divalproex Sodium [Depakote] 500 mg PO Q12 12/28/18 Ondansetron [Zofran Odt 4 mg Tablet] 4 mg PO Q8HP PRN 12/28/18 Acetaminophen [Tylenol 325 mg Tablet] 650 mg PO Q4HP PRN tablet 12/31/18 Allergies/Adverse Reactions: haloperidol [From Haldol] Allergy (Unknown, Verified 12/13/18 13:26) Review of Systems Review of Systems: as per hpi Physical Exam Vital Signs: Intake & Output 11/24/19 11/25/19 11/26/19 06:59 06:59 06:59 Weight 79.379 kg General appearance: PRESENT: no acute distress, well-developed, well-nourished Head exam: PRESENT: atraumatic, normocephalic Respiratory exam: PRESENT: clear to auscultation ailyn. ABSENT: rales, rhonchi, wheezes Cardiovascular exam: PRESENT: RRR, other - Tenderness to palpation all over anterior chest area. No sign of trauma, bruising or edema. Healed surgical scar of CABG.. ABSENT: diastolic murmur, rubs, systolic murmur GI/Abdominal exam: PRESENT: distended, normal bowel sounds, soft. ABSENT: guarding, mass, organolmegaly, rebound, tenderness Extremities exam: PRESENT: full ROM. ABSENT: calf tenderness, clubbing, pedal edema Neurological exam: PRESENT: alert, awake, oriented to person, oriented to place, oriented to time, oriented to situation, CN II-XII grossly intact. ABSENT: motor sensory deficit Results Laboratory Results: 11/25/19 23:33 11/25/19 23:33 11/25/19 11/25/19 23:33 23:33 WBC 5.7 RBC 4.25 Hgb 12.3 Hct 36.2 MCV 85 MCH 29.0 MCHC 34.0 RDW 20.5 H Plt Count 146 L Seg Neutrophils % 53.0 Sodium 139.2 Potassium 5.1 H Chloride 103 Carbon Dioxide 26 Anion Gap 10 BUN 25 H Creatinine 1.39 H Est GFR ( Amer) 47 L Glucose 181 H Calcium 9.6 Total Bilirubin 0.6 AST 23 Alkaline Phosphatase 97 Total Protein 7.8 Albumin 4.2 11/25/19 11/25/19 23:33 23:33 Creatine Kinase 48 CK-MB (CK-2) 2.90 Troponin I 0.017 Impressions: Chest X-Ray 11/25/19 22:55 IMPRESSION: No evidence of active intrathoracic disease. Assessment and Plan - Diagnosis (1) Chest pain Qualifiers: Chest pain type: unspecified Qualified Code(s): R07.9 - Chest pain, unspecified Is this a current diagnosis for this admission?: Yes Plan: Most likely musculoskeletal including costochondritis. Patient has diffuse tenderness palpation anterior chest. EKG no acute changes, troponin 0.017 down from baseline of 0.02. Given history of extensive cardiovascular disease and abnormal nuclear stress test and no good follow-up will admit to telemetry and consult cardiology for further recommendation. Admit to telemetry, trend troponins, antiplatelets, TIN, beta-blockers, statins, sublingual nitroglycerin, IV morphine, supplemental oxygen. (2) CAD (coronary artery disease) Qualifiers: Coronary Disease-Associated Artery/Lesion type: bypass graft Associated angina: without angina Is this a current diagnosis for this admission?: Yes Plan: Complaining of atypical chest pain, likely noncardiac. Status post CABG and stent placement in 2012. Does not have good neurology follow-up. Continue antiplatelets, beta-blockers, TIN, statins. (3) Chronic kidney disease (CKD), stage III (moderate) Is this a current diagnosis for this admission?: Yes Plan: Likely the consequence of hypertension, and diabetes. Creatinine at baseline. Electrolytes WNL. Euvolemic. Monitor electrolytes and volume status. Avoid nephrotoxic meds. Outpatient PCP and nephrology follow-up. (4) Diabetes mellitus type 2 in nonobese Is this a current diagnosis for this admission?: Yes Plan: History of uncontrolled diabetes. Hemoglobin A1c 9.8 as of 2019. Diabetic diet, basal, sliding scale and prandial insulin, Accu-Chek, hypoglycemia protocol. Resume home meds upon discharge. Outpatient PCP follow-up. (5) HTN (hypertension) Qualifiers: Hypertension type: essential hypertension Qualified Code(s): I10 - Essential (primary) hypertension Is this a current diagnosis for this admission?: Yes Plan: Uncontrolled. Appears euvolemic. Resume home meds. Adjust meds as needed. Outpatient PCP follow-up. (6) Hyperkalemia Is this a current diagnosis for this admission?: Yes Plan: Mild hyperkalemia, no acute EKG change. Hyperkalemia protocol. Potassium level tomorrow. (7) Tobacco abuse Is this a current diagnosis for this admission?: Yes Plan: Current smoker. Advised on quitting. NicoDerm patch will be provided. (8) Bipolar 1 disorder, depressed Is this a current diagnosis for this admission?: Yes Plan: Takes BuSpar, Depakote and quetiapine. Resume home meds. Outpatient PCP and psychiatry follow-up. - Time Time Spent with patient: 35 or more minutes Smoking Cessation Education: 3 to 10 minutes Medications reviewed and adjusted accordingly: Yes Anticipated Discharge Disposition: Long-Term Facility Anticipated Discharge Timeframe: within 48 hours
[2019-11-26] MEDS ORDERED: IPRATROPIUM/ALBUTEROL 0.5-2.5 MG/3 ML AMPUL NEB PRN (01:42)
[2019-11-26] MEDS ORDERED: OXYCODONE-ACETAMINOPHEN 5-325 MG TABLET PO PRN (01:42)
[2019-11-26] MEDS ORDERED: PROMETHAZINE HCL INJ 25 MG/1 ML VIAL IV PRN (01:42)
[2019-11-26] MEDS ORDERED: ONDANSETRON HCL INJ/PF 4 MG/2 ML SDV IV PRN (01:42)
[2019-11-26] MEDS ORDERED: MAGNESIUM HYDROXIDE SUSP 30 ML UDCUP PO PRN (01:42)
[2019-11-26] MEDS ORDERED: ACETAMINOPHEN 325 MG TABLET PO PRN (01:42)
[2019-11-26] MEDS ORDERED: TEMAZEPAM 7.5 MG CAPSULE PO PRN (01:42)
[2019-11-26] MEDS ORDERED: NITROGLYCERIN 0.4 MG/TAB 25 TAB/BOTTLE SL PRN (01:52)
[2019-11-26] MEDS ORDERED: HYDRALAZINE HCL INJ/PF 20 MG/1 ML SDV IV PRN (01:55)
[2019-11-26] MEDS ORDERED: METOPROLOL TARTRATE PF/INJ 5 MG/5 ML SDV IV PRN (01:55)
[2019-11-26] MEDS ORDERED: DEXTROSE 50%-WATER 25 GM/50 ML DISP.SYRIN IV PRN ×2 (01:59)
[2019-11-26] MEDS ORDERED: GLUCAGON,HUMAN RECOMB 1 MG INJ IM PRN (01:59)
[2019-11-26] MEDS ORDERED: DEXTROSE 40% GEL 15 GM TUBE PO PRN ×2 (01:59)
[2019-11-26] MEDS: INSULIN LISPRO 100 UNIT/ML 3 ML VIAL SUBCUT SCH ×2 (07:27→13:56)
[2019-11-26] MEDS ORDERED: BUSPIRONE HCL 10 MG TABLET PO SCH (08:00)
[2019-11-26 09:11] LABS: ANION GAP 11 (5-19); BLOOD UREA NITROGEN 23 mg/dL (7-20); CALCIUM 9.7 mg/dL (8.4-10.2); CARBON DIOXIDE 25 mmol/L (22-30); CHLORIDE 106 mmol/L (98-107); GLUCOSE 130 mg/dL (75-110); POTASSIUM 4.7 mmol/L (3.6-5.0)
[2019-11-26] MEDS ORDERED: DOCUSATE SODIUM 100 MG CAPSULE PO SCH (10:00)
[2019-11-26] MEDS ORDERED: METOPROLOL SUCCINATE 25 MG TAB.SR.24H PO SCH (10:00)
[2019-11-26] MEDS ORDERED: ENOXAPARIN SODIUM INJ 30 MG/0.3 ML DISP.SYRIN SUBCUT SCH (10:00)
[2019-11-26] MEDS ORDERED: FAMOTIDINE 20 MG TABLET PO SCH (10:00)
[2019-11-26] MEDS ORDERED: DIVALPROEX SODIUM 250 MG TABLET.DR PO SCH (10:00)
[2019-11-26] MEDS ORDERED: QUETIAPINE FUMARATE 25 MG TABLET PO SCH (10:00)
[2019-11-26] MEDS ORDERED: RANOLAZINE 500 MG TAB.SR.12H PO SCH (10:00)
[2019-11-26] MEDS ORDERED: ASPIRIN 81 MG TABLET, CHEWABLE PO SCH (10:00)
[2019-11-26] MEDS ORDERED: POLYETHYLENE GLYCOL 3350 POWDER 17 GM/1 PACKET PO SCH (10:00)
[2019-11-26 12:52] VITALS: BP 121/68
[2019-11-26] MEDS ORDERED: NITROGLYCERIN 5 MG (0.2 MG/HR) PATCH.TD24 TD ONE (14:00)
--- NOTE | 2019-11-26 14:40 | PDOC TRANSFER SUMMARY ---
Impression - Admit/DC Date/PCP Admission Date/Primary Care Provider: 11/26/19 01:26 TREVON SKAGGS PA-C Discharge Date: 11/26/19 - Discharge Diagnosis (1) Atypical chest pain Is this a current diagnosis for this admission?: Yes (2) Costochondritis Is this a current diagnosis for this admission?: Yes (3) Troponin I above reference range Is this a current diagnosis for this admission?: Yes - Assessment Summary: CHARLEY SHERMAN is a 59 year old female who is a resident of [facility] with past medical history of tobacco abuse, hypertension, hyperlipidemia, CKD, CAD status post stent placement and CABG who presented to the ED complaining of chest pain. She was smoking outside when she noticed sudden onset right-sided chest pain radiating to epigastric region, pain was sharp, exacerbated with movement. EMS was called and patient was given 2 sublingual nitroglycerin and 324 mg of aspirin. Upon presentation to the ED, she was in no apparent distress, stating that her chest pain had resolved, and denied shortness of breath, orthopnea, paroxysmal nocturnal dyspnea, palpitations, lightheadedness, fever, chills, abdominal pain, diarrhea, constipation or any urinary symptoms. On physical examination she had tenderness to palpitation all over her chest, but denies any heavy lifting, having started any recent workout regimen, having received any trauma to the chest or any fall. In the ED, she was noted to have minimally elevated troponin of 0.017. EKG did not show any acute changes. Given history of extensive cardiovascular disease, she was observed overnight to have troponin level trended and cardiology consulted. She was observed on telemetry and no abnormal rhythm was noted. She denied chest pain throughout her hospitalization. Her troponin remained minimally elevated (which is baseline for her) and trended down prior to discharge. Cardiology was consulted and recommended to start a nitro patch. She will need outpatient follow up with cardiology, Dr. Brooks, in 1-2 weeks. Although her chest pain this admission did not sound cardiac in nature, and is much more likely to be musculoskeletal in nature, she would benefit from close outpatient cardiology monitoring and possible left heart catheterization in the future as outpatient given her long history of atypical chest pain and multiple cardiac risk factors. She is now stable for discharge. - Additional Information Discharge Diet: Cardiac, Diabetic Discharge Activity: Activity As Tolerated Referrals: [facility] [Outside] Prescriptions: Nitroglycerin [Nitro-Dur 5 mg (0.2 mg/Hr) Transdermal Patch] 1 patch TD QAM #30 patch Famotidine [Pepcid 20 mg Tablet] 20 mg PO BID #60 tablet Home Medications: Aspirin [Aspirin 81 mg Chewable Tablet] 81 mg PO QHS 12/13/18 Atorvastatin Calcium [Lipitor 40 mg Tablet] 40 mg PO QHS 12/13/18 Metoprolol Succinate [Toprol Xl 25 mg Tab.sr] 25 mg PO QAM 12/13/18 Quetiapine Fumarate [Seroquel] 50 mg PO Q12 12/13/18 Ranolazine [Ranexa 500 mg Tab.sr] 500 mg PO Q12 12/13/18 Divalproex Sodium [Depakote] 500 mg PO Q12 12/28/18 Cetirizine HCl [Zyrtec 10 mg Tablet] 10 mg PO QHS 11/26/19 Famotidine [Pepcid 20 mg Tablet] 20 mg PO BID #60 tablet 11/26/19 Fluticasone Propionate [Flonase Nasal [place] 50 Mcg/[place] 16 gm] 1 spray NAREB QHS 11/26/19 Lactulose [Cephulac Syrup 20 gm/30 ml Udcup] 20 gm PO QHS 11/26/19 Levothyroxine Sodium [Synthroid 0.05 mg Tablet] 50 mcg PO DAILY 11/26/19 Metformin HCl [Glucophage 500 mg Tablet] 500 mg PO BID 11/26/19 Multivitamin [Tab-A-Ryan (Multiple Vitamin) Tablet] 1 tab PO DAILY 11/26/19 Nitroglycerin [Nitro-Dur 5 mg (0.2 mg/Hr) Transdermal Patch] 1 patch TD QAM #30 patch 11/26/19 Omeprazole 20 mg PO DAILY 11/26/19 Polyethylene Glycol 3350 [Miralax Powder 17 gm/Packet] 1 packet PO DAILY 11/26/19 Sennosides [Senna Laxative] 8.6 mg PO Q12 11/26/19 Sertraline HCl [Zoloft 50 mg Tablet] 100 mg PO DAILY 11/26/19 History of Present Illiness History of Present Illness: CHARLEY SHERMAN is a 59 year old female Physical Exam Vital Signs: Temp Pulse Resp BP Pulse Ox 97.8 F 59 L 23 H 121/68 96 11/26/19 12:31 11/26/19 12:31 11/26/19 12:31 11/26/19 12:31 11/26/19 12:31 Intake & Output 11/25/19 11/26/19 11/27/19 06:59 06:59 06:59 Intake Total 0 Output Total 400 Balance -400 Weight 86 kg Results Laboratory Results: WBC 5.7 10^3/uL (4.0-10.5) 11/25/19 23:33 RBC 4.25 10^6/uL (3.72-5.28) 11/25/19 23:33 Hgb 12.3 g/dL (12.0-15.5) 11/25/19 23:33 Hct 36.2 % (36.0-47.0) 11/25/19 23:33 MCV 85 fl (80-97) 11/25/19 23:33 MCH 29.0 pg (27.0-33.4) 11/25/19 23: MCHC 34.0 g/dL (32.0-36.0) 11/25/19 23:33 RDW 20.5 % (11.5-14.0) H 11/25/19 23:33 Plt Count 146 10^3/uL (150-450) L 11/25/19 23:33 Lymph % (Auto) 32.9 % (13-45) 11/25/19 23:33 Stephenson % (Auto) 12.0 % (3-13) 11/25/19 23: Eos % (Auto) 1.7 % (0-6) 11/25/19 23: Baso % (Auto) 0.4 % (0-2) 11/25/19 23:33 Absolute Neuts (auto) 3.0 10^3/uL (1.7-8.2) 11/25/19 23:33 Absolute Lymphs (auto) 1.9 10^3/uL (0.5-4.7) 11/25/19 23:33 Absolute Monos (auto) 0.7 10^3/uL (0.1-1.4) 11/25/19 23:33 Absolute Eos (auto) 0.1 10^3/uL (0.0-0.6) 11/25/19 23:33 Absolute Basos (auto) 0.0 10^3/uL (0.0-0.2) 11/25/19 23:33 Seg Neutrophils % 53.0 % (42-78) 11/25/19 23:33 Sodium 142.4 mmol/L (137-145) 11/26/19 07:36 Potassium 4.7 mmol/L (3.6-5.0) 11/26/19 07:36 Chloride 106 mmol/L (98-107) 11/26/19 07:36 Carbon Dioxide 25 mmol/L (22-30) 11/26/19 07:36 Anion Gap 11 (5-19) 11/26/19 07:36 BUN 23 mg/dL (7-20) H 11/26/19 07:36 Creatinine 1.21 mg/dL (0.52-1.25) 11/26/19 07:36 Est GFR ( Amer) 55 (>60) L 11/26/19 07:36 Est GFR (MDRD) Non-Af 45 (>60) L 11/26/19 07:36 Glucose 130 mg/dL (75-110) H 11/26/19 07:36 POC Glucose 192 mg/dL (70-110) H 11/26/19 12:32 Calcium 9.7 mg/dL (8.4-10.2) 11/26/19 07:36 Magnesium 2.3 mg/dL (1.6-2.3) 11/26/19 07:36 Total Bilirubin 0.6 mg/dL (0.2-1.3) 11/25/19 23:33 Direct Bilirubin 0.5 mg/dL (0.0-0.4) H 11/25/19 23:33 Neonat Total Bilirubin Not Reportable 11/25/19 23:33 Neonat Direct Bilirubin Not Reportable 11/25/19 23:33 Neonat Indirect Bili Not Reportable 11/25/19 23:33 AST 23 U/L (14-36) 11/25/19 23:33 ALT 14 U/L (<35) 11/25/19 23:33 Alkaline Phosphatase 97 U/L (38-126) 11/25/19 23:33 Creatine Kinase 48 U/L (30-135) 11/25/19 23:33 CK-MB (CK-2) 2.90 ng/mL (<4.55) 11/25/19 23:33 Troponin I 0.024 ng/mL 11/26/19 13:22 Total Protein 7.8 g/dL (6.3-8.2) 11/25/19 23:33 Albumin 4.2 g/dL (3.5-5.0) 11/25/19 23:33 11/25/19 11/26/19 11/26/19 23:33 07:36 13:22 CK-MB (CK-2) 2.90 Troponin I 0.017 0.034 0.024 Impressions: Chest X-Ray 11/25/19 22:55 IMPRESSION: No evidence of active intrathoracic disease. Stroke Is this a Stroke Patient?: No Acute Heart Failure Is this a Heart Failure Patient?: No
--- NOTE | 2019-11-26 20:19 | EKG REPORT ---
SEVERITY:- ABNORMAL ECG - SINUS RHYTHM INFERIOR INFARCT, AGE INDETERMINATE LATERAL INFARCT, AGE INDETERMINATE ANTERIOR INFARCT, OLD : Confirmed by: Smita Luque MD 26-Nov-2019 20:19:10
--- NOTE | 2019-11-26 21:17 | PDOC CONSULTATION ---
Consultation-Blank Consultation: CARDIOLOGY CONSULTATION by Dr. Smita Luque on 11/26/2019. Patient seen at 12:30 PM. 60 minutes spent with patient more than 50% of time spent in direct patient care. CONSULT REQUESTING PHYSICIAN: Jaxon Soliman hospitalist physician group. REASON FOR CONSULTATION: Patient with chest pain. Please assess status of coronary artery disease. HISTORY OF PRESENT ILLNESS: Patient is 59-year-old female with no history of coronary artery disease history of coronary bypass graft surgery after myocardial infarction, diabetes mellitus history of bipolar disorder, and history of hypertension and COPD who continues to smoke was brought in from the [facility] for chest pain. The patient clearly indicates that the chest pain is in the lower mid chest and to the right side of the lower chest and is reproduced by pressing on the these areas. Clearly this is noncardiac. The patient is EKG shows old myocardial infarction but nothing acute. Troponins are negative. But the patient is not a very good historian. She has a history of coronary artery disease. She has had a history of myocardial infarction x2 in the past. She in 2017 after cardiac catheterization had a ODEN placed to the LAD, and a saphenous vein graft to the obtuse marginal branch and a saphenous vein graft to the right coronary artery. She in 2019 had a IV Lexiscan Cardiolite stress test which showed evidence of old myocardial infarction inferior wall and a small area of mild ischemia in the apical lateral wall. She was recommended to have medical treatment. There is no history of TIA CVA. There is no symptoms suggestive COVID-19 infection. There is no symptoms of acute exacerbation of COPD. There is no palpitations near syncope or syncope. Past Medical History Cardiac Medical History: Reports: Coronary Artery Disease, Myocardial Infarction - x2, Hyperlipidema, Hypertension Denies: Atrial Fibrillation, Congestive Heart Failure, DVT, Peripheral Vascular Disease, Pulmonary Embolism Pulmonary Medical History: Reports: Bronchitis, Chronic Obstructive Pulmonary Disease (COPD) Denies: Asthma, Pneumonia, Respiratory Failure, Tuberculosis Neurological Medical History: Denies: Seizures Endocrine Medical History: Reports: Diabetes Mellitus Type 2 Denies: Hyperthyroidism, Hypothyroidism GI Medical History: Reports: Gastroesophageal Reflux Disease Denies: Cirrhosis, Crohn's Disease, Hepatitis, Ulcerative Colitis Musculoskeltal Medical History: Denies: Arthritis, Gout Skin Medical History: Denies: Eczema, Psoriasis Psychiatric Medical History: Reports: Bipolar Disorder, Depression, Schizoaffective Disorder Hematology: Denies: Anemia, Bleeding Tendencies RESUSCITATION STATUS: The patient is a full code. Her son is her surrogate healthcare decision maker. Past Surgical History Past Surgical History: Reports: Cardiac Catheterization, Cholecystectomy, Co ronary Artery Bypass Graft - September 2016, Coronary Stent - x2, Tonsillectomy, Tubal Ligation, Vascular Surgery, Other - PEG tube placement Denies: Hysterectomy Social History Lives with: [facility] Smoking Status: Current Every Day Smoker Frequency of Alcohol Use: None Hx Recreational Drug Use: No Drugs: None Hx Prescription Drug Abuse: No Family History Family History: CAD Parental Family History Reviewed: Yes Children Family History Reviewed: Yes Sibling(s) Family History Reviewed.: Yes Medication/Allergy Home Medications: Acetaminophen [Tylenol 325 mg Tablet] 650 mg PO Q6HP PRN 12/13/18 Aspirin [Aspirin 81 mg Chewable Tablet] 81 mg PO QHS 12/13/18 Atorvastatin Calcium [Lipitor 40 mg Tablet] 40 mg PO QHS 12/13/18 Buspirone HCl [Buspar 5 mg Tablet] 5 mg PO QAM 12/13/18 Docusate Sodium [Colace 100 mg Capsule] 100 mg PO BID 12/13/18 Famotidine [Pepcid 20 mg Tablet] 20 mg PO BID 12/13/18 Metformin HCl [Glucophage XR 500 mg Tablet] 500 mg PO QAM 12/13/18 Metoprolol Succinate [Toprol Xl 25 mg Tab.sr] 25 mg PO QAM 12/13/18 Multivitamin [Multiple Vitamins] 1 tab PO QAM 12/13/18 Nitroglycerin [Nitrostat 0.4 mg (1/150 Gr) Tabs 25/Bottle] 0.4 mg SL Q5MP PRN 12/13/18 Quetiapine Fumarate [Seroquel] 50 mg PO Q12 12/13/18 Ranolazine [Ranexa 500 mg Tab.sr] 500 mg PO BID 12/13/18 Divalproex Sodium [Depakote] 500 mg PO Q12 12/28/18 Ondansetron [Zofran Odt 4 mg Tablet] 4 mg PO Q8HP PRN 12/28/18 Acetaminophen [Tylenol 325 mg Tablet] 650 mg PO Q4HP PRN tablet 12/31/18 Allergies/Adverse Reactions: haloperidol [From Haldol] Allergy (Unknown, Verified 12/13/18 13:26) Current Medications Discontinued Medications Generic Name Dose Route Start Last Admin Trade Name Freq PRN Reason Stop Dose Admin Acetaminophen 325 mg 11/26/19 01:42 Tylenol 325 Mg Tablet PO 12/26/19 01:41 Q4HP PRN FOR BACK PAIN Albuterol/Ipratropium 3 ml 11/26/19 01:42 Duoneb 3 Ml Ampul NEB 12/26/19 01:41 RTQ6HP PRN SHORTNESS OF BREATH Aspirin 81 mg 11/26/19 10:00 11/26/19 09:45 Aspirin 81 Mg Chewable Tablet PO 12/26/19 09:59 81 mg DAILY ISA Administration Atorvastatin Calcium 40 mg 11/26/19 22:00 Lipitor 40 Mg Tablet PO 12/26/19 21:59 QHS ISA Buspirone HCl 5 mg 11/26/19 08:00 11/26/19 09:46 Buspar 10 Mg Tablet PO 12/26/19 07:59 5 mg QAM ISA Administration Dextrose 12.5 gm 11/26/19 01:59 Dextrose Inj 50% Syringe (25 Gm/50 Ml) IV 12/26/19 01:58 PRN PRN FOR BG 50-69 IN ALERT PATIENT Protocol Dextrose 25 gm 11/26/19 01:59 Dextrose Inj 50% Syringe (25 Gm/50 Ml) IV 12/26/19 01:58 PRN PRN PER PROTOCOL Protocol Divalproex Sodium 500 mg 11/26/19 10:00 11/26/19 09:46 Depakote Ec 250 Mg Tablet.Dr PO 12/26/19 09:59 500 mg BID ISA Administration Docusate Sodium 100 mg 11/26/19 10:00 11/26/19 09:47 Colace 100 Mg Capsule PO 12/26/19 09:59 100 mg BID ISA Administration Enoxaparin Sodium 30 mg 11/26/19 10:00 11/26/19 09:50 Lovenox Inj 30 Mg/0.3 Ml Disp.Syrin SUBCUT 12/26/19 09:59 30 mg DAILY ISA Administration Famotidine 20 mg 11/26/19 10:00 11/26/19 09:46 Pepcid 20 Mg Tablet PO 12/26/19 09:59 20 mg DAILY ISA Administration Glucagon 1 mg 11/26/19 01:59 Glucagen Inj 1 Mg Vial IM 12/26/19 01:58 PRN PRN Evaluate for BG < 70 Protocol Glucose 15 gm 11/26/19 01:59 Glutose 40% Gel 15 Gm Tube PO 12/26/19 01:58 PRN PRN FOR BG 50-69 IN ALERT PATIENT Protocol Glucose 30 gm 11/26/19 01:59 Glutose 40% Gel 15 Gm Tube PO 12/26/19 01:58 PRN PRN FOR BG < 50 IN ALERT PATIENT Protocol Hydralazine HCl 10 mg 11/26/19 01:55 Apresoline Inj/Pf 20 Mg/1 Ml Sdv IV 12/26/19 01:54 Q3HP PRN Give For Sbp > [150] Insulin Human Lispro 0 - 12 unit 11/26/19 08:00 11/26/19 13:56 Humalog Insulin 100 Unit/1 Ml 3 Ml Vial SUBCUT 12/26/19 07:59 2 unit ACHS ISA Administration Protocol Magnesium Hydroxide 30 ml 11/26/19 01:42 Milk Of Magnesia 30 Ml Udcup PO 12/26/19 01:41 HSP PRN FOR CONSTIPATION Metoprolol Succinate 25 mg 11/26/19 10:00 11/26/19 09:46 Toprol Xl 25 Mg Tab.Sr PO 12/26/19 09:59 25 mg DAILY ISA Administration Metoprolol Tartrate 2.5 mg 11/26/19 01:55 Lopressor Inj/Pf 5 Mg/5 Ml Sdv IV 12/26/19 01:54 Q6HP PRN Give For Hr > [150] Morphine Sulfate 2 mg 11/25/19 23:28 11/26/19 01:42 Morphine 10 Mg/Ml Inj IV 11/25/19 23:29 2 mg NOW ONE Administration Nitroglycerin 0.25 gm 11/25/19 23:28 11/26/19 01:43 Nitrol 2% Ointment 1gm Packet TP 11/25/19 23:29 0.25 gm NOW ONE Administration Nitroglycerin 1 tab 11/26/19 01:52 Nitrostat 0.4 Mg (1/150 Gr) Tabs 25/Bottle SL 12/26/19 01:51 Q5MP PRN FOR CHEST PAIN Nitroglycerin 1 each 11/26/19 14:00 11/26/19 15:42 Nitro-Dur 5 Mg (0.2 Mg/Hr) Transdermal Patch TD 11/26/19 14:01 Not Given NOW ONE Nitroglycerin 1 each 11/27/19 10:00 Nitro-Dur 15 Mg (0.6 Mg/1 Hr) Transderm Patch TD 12/27/19 09:59 DAILY ISA Ondansetron HCl 4 mg 11/26/19 01:42 Zofran Inj/Pf 4 Mg/2 Ml Sdv IV 12/26/19 01:41 Q4HP PRN FOR NAUSEA/VOMITING Oxycodone/Acetaminophen 1 tab 11/26/19 01:42 11/26/19 04:23 Percocet 5-325 Mg Tablet PO 12/03/19 01:41 1 tab Q4HP PRN Administration FOR PAIN SCALE 3-5 Polyethylene Glycol 17 gm 11/26/19 10:00 11/26/19 09:45 Miralax Powder 17 Gm/Packet PO 12/26/19 09:59 17 gm DAILY ISA Administration Promethazine HCl 12.5 mg 11/26/19 01:42 11/26/19 04:32 Phenergan Inj 25 Mg/1 Ml Vial IV 12/26/19 01:41 12.5 mg Q4HP PRN Administration FOR NAUSEA/VOMITING Quetiapine Fumarate 50 mg 11/26/19 10:00 11/26/19 10:06 Seroquel 25 Mg Tablet PO 12/26/19 09:59 50 mg BID ISA Administration Ranolazine 500 mg 11/26/19 10:00 11/26/19 10:06 Ranexa 500 Mg Tab.Sr PO 12/26/19 09:59 500 mg Q12 ISA Administration Temazepam 7.5 mg 11/26/19 01:42 Restoril 7.5 Mg Capsule PO 12/03/19 01:41 HSP PRN SLEEP OR INSOMNIA Review of Systems: Constitutional: Denies any fever chills or rigors. Complains of generalized fatigue. HEAD: Denies headaches or head injury. EYES: No history of amblyopia diplopia. No history of amaurosis fugax. EARS: No history of tinnitus. No history of hearing loss. NOSE: No history of nosebleeds. No history of hayfever. MOUTH: No altered sensation of taste. No ulcers or bleeding from the gums. THROAT: There is no odynophagia or dysphagia. There is no recurrent sore throats. SKIN: There is no skin rashes. There is no petechia or ecchymosis. LUNGS: Denies any cough or sputum production or wheezing. The patient continues to smoke. She has history of COPD. HEART: History of coronary artery disease. History of coronary bypass graft surgery. Minimally abnormal stress test about a year ago. No clear-cut anginal symptoms.. Patient is chest wall pain. GI: No history of GI bleed. No history of fatty food intolerance. No history of hepatitis. No history of GI bleed no history of altered bowel movements. RENAL: No history of chronic kidney disease. No symptoms of UTI. SUPERINTENDENT MAINTENANCE: No history of CVA TIA. No severe headaches migraines or seizures. PSYCHIATRIC history of bipolar disorder currently well- controlled on medication. VASCULAR: No history of calf or buttock claudication. No DVT. PHYSICAL EXAMINATION: The patient is mildly obese. At present in no acute distress. Selected Entries 11/26/19 12:31 Temperature 97.8 F Temperature Oral Source Pulse Rate 59 L Respiratory 23 H Rate Blood Pressure 121/68 Blood Pressure 85 Mean BP Location Left Arm BP Position Sitting O2 Sat by Pulse 96 Oximetry Oxygen Delivery Room Air Method HEAD: Is atraumatic normocephalic. EYES: Pupils are equal round regular reactive light accommodation extraocular movements are normal. There is no conjunctival pallor. There is no scleral icterus. EARS: Tympanic membranes are intact. External auditory canals are clear. NOSE: There is no deviated nasal septum. There is no inflammation of the nasal mucous membrane. MOUTH: Mucous membranes of the mouth are moist. Tongue is moist. There is no ulcers. TH ROAT: There is no redness of the oropharynx. There is no exudates. SKIN: There is no skin rashes. There is no petechia or ecchymosis. NECK: Supple. There is no JVD. Carotids are equal there is no bruit there is no lymphadenopathy. There is no goiter. There is no accessory muscle respiration use. Trachea central. CHEST: There is reproducible chest wall tenderness on pressing the lower mid chest and the right lower side of the chest. This reproduces the patient's his symptoms. LUNGS: Shows diminished air entry progression without any rhonchi rales or wheezing. On percussion there is hyperresonance. HEART: S1-S2 is heard. There is no S3 gallop. There is no S4 gallop. There is systolic murmur left sternal border and the apex there is no rub. ABDOMEN: Is soft. Nontender there is no hepatosplenomegaly. Bowel sounds are well heard. EXTREMITIES: Femorals are diminished. There is no femoral bruits. Leg pulses are diminished. There is no pedal edema. There is no DVT cellulitis. SUPERINTENDENT MAINTENANCE: The patient is conscious awake alert oriented x3 with no focal deficits. PSYCHIATRIC at present the patient judgment and insight are intact and affect is normal. EKG: Sinus rhythm. Old inferior and anterior myocardial infarction. No acute changes. Labs- Entire Visit 11/25/19 11/25/19 11/25/19 23:33 23:33 23:33 WBC 5.7 RBC 4.25 Hgb 12.3 Hct 36.2 MCV 85 MCH 29.0 MCHC 34.0 RDW 20.5 H Plt Count 146 L Lymph % (Auto) 32.9 [place] % (Auto) 12.0 Eos % (Auto) 1.7 Baso % (Auto) 0.4 Absolute Neuts (auto) 3.0 Absolute Lymphs (auto) 1.9 Absolute Monos (auto) 0.7 Absolute Eos (auto) 0.1 Absolute Basos (auto) 0.0 Seg Neutrophils % 53.0 Sodium 139.2 Potassium 5.1 H Chloride 103 Carbon Dioxide 26 Anion Gap 10 BUN 25 H Creatinine 1.39 H Est GFR ( Amer) 47 L Est GFR (MDRD) Non-Af 39 L Glucose 181 H POC Glucose Calcium 9.6 Magnesium Total Bilirubin 0.6 Direct Bilirubin 0.5 H Neonat Total Bilirubin Not Reportable Neonat Direct Bilirubin Not Reportable Neonat Indirect Bili Not Reportable AST 23 ALT 14 Alkaline Phosphatase 97 Creatine Kinase 48 CK-MB (CK-2) 2.90 Troponin I 0.017 Total Protein 7.8 Albumin 4.2 11/26/19 11/26/19 11/26/19 06:00 07:36 07:36 WBC RBC Hgb Hct MCV MCH MCHC RDW Plt Count Lymph % (Auto) [place] % (Auto) Eos % (Auto) Baso % (Auto) Absolute Neuts (auto) Absolute Lymphs (auto) Absolute Monos (auto) Absolute Eos (auto) Absolute Basos (auto) Seg Neutrophils % Sodium 142.4 Potassium 4.7 Chloride 106 Carbon Dioxide 25 Anion Gap 11 BUN 23 H Creatinine 1.21 Est GFR ( Amer) 55 L Est GFR (MDRD) Non-Af 45 L Glucose 130 H POC Glucose 132 H Calcium 9.7 Magnesium 2.3 Total Bilirubin Direct Bilirubin Neonat Total Bilirubin Neonat Direct Bilirubin Neonat Indirect Bili AST ALT Alkaline Phosphatase Creatine Kinase CK-MB (CK-2) Troponin I 0.034 Total Protein Albumin 11/26/19 11/26/19 12:32 13:22 WBC RBC Hgb Hct MCV MCH MCHC RDW Plt Count Lymph % (Auto) [place] % (Auto) Eos % (Auto) Baso % (Auto) Absolute Neuts (auto) Absolute Lymphs (auto) Absolute Monos (auto) Absolute Eos (auto) Absolute Basos (auto) Seg Neutrophils % Sodium Potassium Chloride Carbon Dioxide Anion Gap BUN Creatinine Est GFR ( Amer) Est GFR (MDRD) Non-Af Glucose POC Glucose 192 H Calcium Magnesium Total Bilirubin Direct Bilirubin Neonat Total Bilirubin Neonat Direct Bilirubin Neonat Indirect Bili AST ALT Alkaline Phosphatase Creatine Kinase CK-MB (CK-2) Troponin I 0.024 Total Protein Albumin Chest X-Ray 11/25/19 22:55 IMPRESSION: No evidence of active intrathoracic disease. IMPRESSION/RECOMMENDATION: 1. Chest pain clearly noncardiac reproducible chest wall pain. But in view of the patient not be a good historian would recommend continue the current medications including Ranexa and beta-campos and adding Transderm Nitropatch 0.2 mg/h [5 mg per 24-hour) daily, thereby increasing the total strength of the Transderm-Nitro patch to 0.6mg/h [15 mg per 24-hour.]. Continue aspirin.. 2. Coronary artery disease:. History of old myocardial infarction. History of coronary bypass graft surgery. 3. Hypertension: Blood pressure well controlled. 4. Diabetes mellitus type 2: Continue current antidiabetic treatment. 5. COPD: No acute exacerbation of COPD 6. Bipolar disorder and/affective disorder. Appears to be stable. 7. Tobacco abuse disorder. Tobacco cessation counseling given. Case discussed with attending provider on the case. Medications reviewed. Medications added. Medical decision making is of high complexity. 60 minutes spent as patient more than 50% of time spent in direct patient care. Would recommend discharging the patient. If the patient desires she can follow-up with PMD as an outpatient in my office. My contact numbers given to the patient..
[2019-11-26] MEDS ORDERED: ATORVASTATIN CALCIUM 40 MG TABLET PO SCH (22:00)
[2019-11-27] MEDS ORDERED: NITROGLYCERIN 15 MG (0.6 MG/1 HR) PATCH.TD24 TD SCH (10:00)
== END 2019-11-26 16:38 ==
LOC: ER 22:36 → EH 11-26 01:26 → INTOOBSV 11-26 01:26 → 4N 11-26 04:12
PROVIDERS: ADMIT Internal Medicine; ATTEND Hospitalist
DX: R07.89 Other chest pain (principal); M94.0 Chondrocostal junction syndrome [Tietze]; R79.89 Other specified abnormal findings of blood chemistry; I12.9 Hypertensive chronic kidney disease with stage 1 through stage 4 chronic kidney disease, or unspecified chronic kidney disease; E11.22 Type 2 diabetes mellitus with diabetic chronic kidney disease; N18.3 Chronic kidney disease, stage 3 (moderate); J44.9 Chronic obstructive pulmonary disease, unspecified; E87.5 Hyperkalemia; F32.9 Major depressive disorder, single episode, unspecified; R10.13 Epigastric pain; R11.0 Nausea; R06.02 Shortness of breath; R06.01 Orthopnea; I25.10 Atherosclerotic heart disease of native coronary artery without angina pectoris; Z79.82 Long term (current) use of aspirin; Z79.899 Other long term (current) drug therapy; Z79.84 Long term (current) use of oral hypoglycemic drugs; E78.5 Hyperlipidemia, unspecified; I25.2 Old myocardial infarction; F17.200 Nicotine dependence, unspecified, uncomplicated; Z88.8 Allergy status to other drugs, medicaments and biological substances
CPT/HCPCS: 93005; 99285; 96374; 36415; 82553; 82962; 82550; 83735; 85025; 80048; 80053; 84484 ×2; 71045; 93010; G0378 ×2; J3490 ×9; J1815; J2270; J2550; J1650